=== PATIENT | male | born 1945 | race Caucasian/White ===

== ENCOUNTER 2018-01-21 10:32 | Outpatient (CLI) | payer MEDICARE, SELFPAY ==
[2018-01-21 13:20] LABS: Abs Immature Grans 0.06 k/cumm (0.0-0.09); Absolute Basophil Count 0.07 k/cumm (0.0-0.2); Absolute Eosinophil Count 0.25 k/cumm (0.0-0.7); Absolute Lymphocyte Count 1.43 k/cumm (1.2-3.4); Absolute Monocyte Count 0.86 k/cumm (0.11-0.7); Absolute Neutrophil Count 5.86 k/cumm (1.2-6.7); Basophils % 0.8; Eosinophils % 2.9; HCT 43.9 % (40.0-50.0); HGB 14.6 g/dL (13.5-17.5); Immature Grans % 0.7; Lymphocytes % 16.8; Mean Corp. HGB Concentration 33.3 g/dL (32.0-36.0); Mean Corpuscular Hemoglobin 31.1 pg (27.0-33.0); Mean Corpuscular Volume 93.6 fL (80-95); Mean Platelet Volume 10.6 fL (8.0-11.0); Monocytes % 10.1; Neutrophils % 68.7; Platelet Count 240 x1000/uL (130-400); RBC 4.69 m/cumm (4.50-6.00); RBC Distribution Width 13.8 % (11.8-14.1); White Blood Cell Count 8.53 k/cumm (4.4-10.8)
[2018-01-21 13:42] LABS: ALT 40 U/L (12-78); AST 19 U/L (15-37); Albumin 3.5 g/dL (3.4-5.0); Alkaline Phosphatase 57 U/L (46-116); Anion Gap 10.4 mmol/L (3-11); BUN 21 mg/dL (7-18); Bilirubin, Total 0.4 mg/dL (0.2-1.0); CO2 25.6 mmol/L (21.0-32.0); CREATININE 1.06 mg/dL (0.70-1.30); Calcium 8.8 mg/dL (8.5-10.1); Chloride 103 mmol/L (98-107); Glucose 211 mg/dL (70-100); Potassium 4.2 mmol/L (3.5-5.1); Sodium 139 mmol/L (136-145); Total Protein 6.6 g/dL (6.4-8.2)
[2018-01-21 13:46] LABS: Hemoglobin A1C 6.7 % (4.5-6.2)
== END 2018-01-21 10:52 ==
PROVIDERS: PCP Family Medicine; Visit Provider Family Medicine
DX: R63.4 Abnormal weight loss (principal); I10 Essential (primary) hypertension; E11.9 Type 2 diabetes mellitus without complications; D64.9 Anemia, unspecified; E78.5 Hyperlipidemia, unspecified; R10.2 Pelvic and perineal pain
CPT/HCPCS: 36415; 80053; 83036; 85025

== ENCOUNTER 2018-01-25 01:02 | Outpatient (CLI) | payer MEDICARE, OTHER, SELFPAY ==
--- NOTE | 2018-01-25 08:55 | DI.US_ITS ---
SYMPTOM/DIAGNOSIS: ABD PAIN, R10.9, LLQ, WT LOSS, DECREASED APPETITE ABDOMEN ULTRASOUND: Routine examination was performed. There are no priors for comparison. The aorta and IVC are unremarkable. The liver is normal in size. No hepatic mass is seen sonographically. Portal venous flow is normal. No stones are seen. No gallbladder wall thickening or pericholecystic fluid is seen. There do appear to be a few echogenic immobile foci along the wall of the gallbladder which may represent small polyps. No sludge is present. The common duct is within normal limits at .4 cm. The spleen and kidneys are unremarkable. There is a heterogeneous echogenicity in the region of the head of the pancreas. IMPRESSION: 1. Question of heterogeneous echogenicity in the head of the pancreas. CT scan with contrast of the pancreas is recommended for further evaluation. 2. No biliary ductal dilatation or gallstones.
== END 2018-01-25 01:22 ==
PROVIDERS: PCP Family Medicine; Visit Provider Family Medicine
DX: R10.32 Left lower quadrant pain (principal); R63.0 Anorexia; R63.4 Abnormal weight loss; K86.9 Disease of pancreas, unspecified
CPT/HCPCS: 76700

== ENCOUNTER 2018-01-27 00:19 | Outpatient (CLI) | payer MEDICARE, OTHER, SELFPAY ==
[2018-01-27] MEDS: Omnipaque 350 MG/ML 50 ML BTL PO (07:23)
[2018-01-27] MEDS: Omnipaque 350 MG/ML 100 ML BTL IJ (08:32)
--- NOTE | 2018-01-27 08:32 | DI.CT_ITS ---
SYMPTOM/DIAGNOSIS: F/U ABNL US, PANCREATIC LESION ABDOMEN AND PELVIC CT: The study was carried out according to the usual protocol with an intravenous injection of 100 cc's of Omnipaque 350 and oral ingestion of dilute Omnipaque. There are small areas of scarring and/or atelectasis involving the lung bases. There is no definite infiltrate or pleural effusion. The heart is not enlarged. There is no pericardial effusion. The liver appears intact. The gallbladder is normal. The pancreas is poorly seen due to incomplete opacification of the proximal small bowel. There is a question regarding bowel wall thickening involving the distal duodenum and proximal jejunum. These loops are not opacified. Elsewhere the mid and distal small bowel appears intact. There is nothing to suggest an acute appendix. Note is made of a considerable quantity of scattered gas and fecal material throughout the colon consistent with constipation. The kidneys and adrenals are unremarkable. There is no evidence of adenopathy or a discrete intra-abdominal mass. The bladder is considerably dilated. The reproductive organs as visualized appear intact with note made of enlargement of the prostate. A small nodular density on the bladder floor just above the level of the prostate could represent a small transitional cell tumor of the bladder or could conceivably arise from the prostate. Further assessment with cystoscopy is recommended. There are atherosclerotic changes involving the aorta without evidence of an aneurysm. The celiac and superior mesenteric arteries as visualized appear intact. There are mild degenerative changes involving the spine above the L 5-S 1 level where there is a narrowed vacuum disc and a probable small disc protrusion. SUMMARY: No definite pancreatic mass is seen. There is bowel wall thickening versus non distension involving the proximal small bowel as described above. A small nodular density is noted on the bladder floor and there is considerable enlargement of the prostate. This finding could represent a small transitional cell carcinoma of the bladder wall and less likely a prostatic lesion. Correlation with cystoscopy is recommended. As noted above, there is no definite pancreatic mass however there is a question regarding bowel wall thickening involving the proximal small bowel. There are findings in this patient consistent with constipation. If there is any more specific clinical question regarding the status of the pancreas, then an MRI could also be considered.
== END 2018-01-27 00:39 ==
PROVIDERS: PCP Family Medicine; Visit Provider Family Medicine
DX: K86.89 Other specified diseases of pancreas (principal); K63.89 Other specified diseases of intestine; N32.9 Bladder disorder, unspecified; N40.0 Benign prostatic hyperplasia without lower urinary tract symptoms; K59.00 Constipation, unspecified
CPT/HCPCS: 74177; J3490; Q9967

== ENCOUNTER 2018-02-02 09:06 | Outpatient (CLI) | payer MEDICARE, OTHER, SELFPAY ==
[2018-02-02 10:28] LABS: Bilirubin Negative (Negative); Blood Negative (Negative); Clarity Clear; Glucose 500 mg/dL (Negative); Ketones Negative (Negative); Leukocyte Esterase Negative (Negative); Nitrite Negative (Negative); Urobilinogen 0.2 EU/dL (Up TO 0.2)
== END 2018-02-02 09:26 ==
PROVIDERS: PCP Family Medicine; Visit Provider Family Medicine
DX: N32.9 Bladder disorder, unspecified (principal)
CPT/HCPCS: 81003

== ENCOUNTER → 2018-02-03 10:29 | Outpatient (BNVA) | payer MEDICARE, OTHER, SELFPAY | PROVIDERS: PCP Family Medicine; Visit Provider Nurse Practitioner Gerontology | DX: R69 Illness, unspecified (principal) ==

== ENCOUNTER 2018-02-03 11:42 | Outpatient (CLI) | payer MEDICARE, OTHER, SELFPAY ==
[2018-02-04 09:22] LABS: PSA, Screening 4.3 ng/ml (0-6.5)
== END 2018-02-03 12:02 ==
PROVIDERS: PCP Family Medicine; Visit Provider Nurse Practitioner Gerontology
DX: N40.1 Benign prostatic hyperplasia with lower urinary tract symptoms (principal); Z12.5 Encounter for screening for malignant neoplasm of prostate; I10 Essential (primary) hypertension; E11.9 Type 2 diabetes mellitus without complications; Z79.1 Long term (current) use of non-steroidal anti-inflammatories (NSAID)
CPT/HCPCS: 36415; 84153; 99204; 99215

== ENCOUNTER 2018-02-18 00:09 | Outpatient (CLI) | payer MEDICARE, OTHER, SELFPAY ==
--- NOTE | 2018-02-18 07:00 | DI.US_ITS ---
SYMPTOM/DIAGNOSIS: LT PROSTATE NODULE, WT LOSS, BONE PAIN, XRAY ABNORMALITIES, N40.2,M89.8X9,R63.4,R93.89 ULTRASOUND GUIDED PROSTATE BIOPSY: Ultrasound guidance was provided for prostate biopsy performed by Dr. Avila. Please see Dr. Avila's procedure note.
--- NOTE | 2018-02-18 09:35 | PROST_PTH ---
PATIENT: Chandana Mcwilliams LOC: [facility] U#:[id number] AGE/SX: 72/M ROOM: RE02/18/[address]: Mio Avila MD : 1945 BED: DIS: 02/18/2018 SPEC #: [id number] RECD: 02/18/18 12:40 STATUS: GLADYS RE #: [id number] KYUNG: 02/18/18 09:[address]: Mio Avila DEPT: Surgical Specimen RECD BY: Stella Buenrostro ENTERED: 02/18/18 12:42 SP TYPE: PROST OTHR DR: Paxton Segura MD Tissues: 1 - PROSTATE NEEDLE BIOPSY 2 - PROSTATE NEEDLE BIOPSY 3 - PROSTATE NEEDLE BIOPSY 4 - PROSTATE NEEDLE BIOPSY 5 - PROSTATE NEEDLE BIOPSY 6 - PROSTATE NEEDLE BIOPSY 7 - PROSTATE NEEDLE BIOPSY 8 - PROSTATE NEEDLE BIOPSY 9 - PROSTATE NEEDLE BIOPSY 10 - PROSTATE NEEDLE BIOPSY 11 - PROSTATE NEEDLE BIOPSY 12 - PROSTATE NEEDLE BIOPSY Procedures: GROSS AND MICRO LEVEL 4 Comments: [id number]
--- NOTE | 2018-02-18 09:53 | W.PROCNOTE ---
Date of service: 02/18/18 Time of Service: 09:53 Procedure Note Procedure: Ultrasound-guided biopsy of the prostate Surgeon/Proceduralist/Physician: Mio Avila Procedure Diagnosis: Elevated PSA Procedure Indications: This is a 72-year-old gentleman who has a history of weight loss. He was found to have a slightly elevated PSA of 4.7 ng/mL. On digital exam, there was some firmness on the left side of the prostate. He comes in for prostate biopsy Procedure Description: The patient was brought to the radiology suite on 02/18/2018. He had been given a preoperative antibiotic and mechanical bowel prep. He was placed in the left lateral position. Transrectal imaging of the prostate was then performed. The prostate volume was calculated at 40 cc. There did appear to be a significant median lobe charting up into the bladder, but no other visible abnormalities were identified. There was some loss of architecture between the peripheral and transition zone, but no specific hypoechoic areas. A periprosthetic nerve block was performed using 1% Xylocaine. A total of 12 laterally directed prostate biopsies was taken. Each was labeled and sent to pathology for permanent section. The patient was cautioned regarding the possibilities of urosepsis, blood in the urine, blood from the rectum and blood in the semen. He will follow-up with us in about a week to review his pathology results.
== END 2018-02-18 00:29 ==
PROVIDERS: PCP Family Medicine; Visit Provider Urology
DX: N40.2 Nodular prostate without lower urinary tract symptoms (principal); N41.1 Chronic prostatitis; N42.89 Other specified disorders of prostate; R63.4 Abnormal weight loss
CPT/HCPCS: 88305; 76942

== ENCOUNTER → 2018-04-04 10:50 | Outpatient (BNVA) | payer MEDICARE, OTHER, SELFPAY | PROVIDERS: PCP Family Medicine; Referring Provider Family Medicine; Visit Provider Physical Therapy Assistant | DX: Z12.11 Encounter for screening for malignant neoplasm of colon (principal); E11.9 Type 2 diabetes mellitus without complications; Z79.4 Long term (current) use of insulin; I10 Essential (primary) hypertension ==

== ENCOUNTER 2018-04-22 07:04 | Day surgery (SDC) | payer MEDICARE, OTHER, SELFPAY ==
[2018-04-22 07:19] VITALS: BP 120/78; PULSE 80; RESP 16; TEMP 35.6; O2SAT 99
[2018-04-22] MEDS: Lactated Ringers 1,000 ML 80 ML IV (07:44)
--- NOTE | 2018-04-22 09:12 | BOWEL_PTH ---
PATIENT: Chandana Mcwilliams LOC: [facility] U#:[id number] AGE/SX: 72/M ROOM: RE04/22/[address]: Benny Dewey III : 1945 BED: DIS: 04/22/2018 SPEC #: [id number] RECD: 04/22/18 12:56 STATUS: GLADYS REKrish #: [id number] KYUNG: 04/22/18 09:[address]: Benny Dewey III DEPT: Surgical Specimen RECD BY: Stella Buenrostro ENTERED: 04/22/18 12:58 SP TYPE: Bowel OTHR DR: Paxton Segura MD Tissues: 1 - BIOPSY BOWEL 2 - BIOPSY BOWEL Procedures: GROSS AND MICRO LEVEL 4 Comments: [id number]
--- NOTE | 2018-04-22 09:29 | COLE_ITS ---
Date of service: 04/22/18 Time of Service: 09:26 Colonoscopy Report Date of procedure: 04/22/18 Pre-op diagnosis general: screening colonoscopy Post-op diagnosis procedure note: other Procedure: cecal and sigmoid polyp Anesthesia proc note operative: MAC Pathology: other (cecal and sigmoid polyp) Complications: None Disposition: PACU Prep: LuzmaMANJULACOLBY Procedure Description: After informed consent was obtained the patient was taken to the procedure room and placed in a left decubitous position. Monitors were applied and a time out was done. The patients name, date of , procedure, allergies to medications and metal in their body was reviewed. The patient was then sedated. Once sedated and comfortable a rectal exam was done. External exam was normal. Internal exam revealed a normal sphincter tone and no palpable masses. The prostate WNL. The scope was then introduced and retrofelexed. no internal hemorrhoids were identified. The scope was then advanced to the cecum with difficulty, pt was repositioned on his back. The TI and appendiceal orifice were identified. The prep was not great. The scope was then slowly retracted over 6 minutes back into the rectum. Polyps were removed at cecal and sigmoid. The scope was remove d and the patient was woken up and taken back to Same day surgery in stable condition. The patient tolerated the procedure well and there were no immediate complications. Follow up: The patient should follow up in, 3-5 years? based on path, otherwise 10 years unless they develop changes in bowel habits or other new gastrointestinal complaints.
--- NOTE | 2018-04-22 09:29 | W.PM.DSUDISC ---
Discharge Plan Disposition Patient Disposition: HOME Condition: Stable Discharge Details Reason For Visit: screening colonoscopy Attending Provider: Benny Dewey III Primary Care Provider: Paxton Segura Home Meds and New Rx's Prescriptions: Continued atorvastatin [Lipitor] 10 mg tablet 10 mg PO QPM Qty: 90 RF: 4 Jardiance 25 mg tablet 25 mg PO DAILY Qty: 90 RF: 3 Lantus Solostar U-100 Insulin 100 unit/mL (3 mL) insulin pen 12 unit Sub-Q HS Qty: 15 RF: 2 Janumet 50-1,000 mg tablet 1 tab PO BID Qty: 180 RF: 3 valacyclovir [Valtrex] 500 mg tablet 500 mg PO BID PRN (Reason: herpes) Qty: 30 RF: 0 OneTouch Ultra Test strip 1 strip Miscellaneous BID Qty: 300 RF: 4 lancets [BD Ultra Fine Lancets] 33 gauge misc .ROUTE .MEDSUPPLY Qty: 300 RF: 3 pen needle, diabetic [BD Ultra-Fine Ankita Pen Needle] 32 gauge x 5/32 needle 1 ea Miscellaneous DAILY Qty: 400 RF: 4 bisacodyl [Dulcolax (bisacodyl)] 5 mg tablet,delayed release (DR/EC) 5 mg PO ONCE Qty: 4 RF: 0 polyethylene glycol 3350 17 gram/dose powder 255 g PO ONCE Qty: 255 RF: 0 latanoprost [Xalatan] 2.5 ML drops 1 drp Ophthalmic DAILY RF: 0 Betimol 15 ML drops 1 drp Ophthalmic DAILY RF: 0 epinephrine [EpiPen 2-Yovani] 0.3 MG/0.3 ML auto-injector 0.3 mg IM PRN Qty: 1 RF: 2 losartan 50 mg tablet 50 mg PO DAILY Qty: 90 RF: 3 Humalog KwikPen Insulin 100 unit/mL insulin pen 1 - 5 unit SC TID Qty: 15 RF: 3 fluoxetine 20 mg tablet 10 mg PO DAILY RF: 0 Discharge Instructions Stand Alone Forms: Colonoscopy Post Instructions, Marco Antonio Lezama (DSU) Activity:: Activity as Tolerated Diet:: As Tolerated Discharge Orders Discharge Orders: Discharge Order (Routine); Ordered 04/22/18 Ordered By: Benny Dewey III DS: Diagnosis Discharge Diagnosis (1) Encounter for screening colonoscopy: Status: Acute (2) Polyp of cecum: Status: Acute (3) Sigmoid polyp: Status: Acute
[2018-04-22 10:04] VITALS: BP 123/74; PULSE 65; RESP 18; TEMP 36; O2SAT 95
== END 2018-04-22 10:32 | disposition home or self-care (01) ==
PROVIDERS: PCP Family Medicine; Visit Provider Surgery
PROC: 0DJD8ZZ Inspection of Lower Intestinal Tract, Via Natural or Artificial Opening Endoscopic (ICD-10-PCS; CPT 45378; principal; 2018-04-22 08:15)
DX: Z12.11 Encounter for screening for malignant neoplasm of colon (principal); D12.0 Benign neoplasm of cecum; K63.5 Polyp of colon; E11.9 Type 2 diabetes mellitus without complications; Z79.4 Long term (current) use of insulin; I10 Essential (primary) hypertension
CPT/HCPCS: 45380; 88305; J3010

== ENCOUNTER → 2018-08-30 12:45 | Outpatient (BNVA) | payer MEDICARE, OTHER, SELFPAY | PROVIDERS: PCP Family Medicine; Visit Provider Urology | DX: R35.0 Frequency of micturition (principal); R97.20 Elevated prostate specific antigen [PSA]; E11.9 Type 2 diabetes mellitus without complications | CPT/HCPCS: 81003; 99213 ==

== ENCOUNTER 2018-08-30 13:37 | Outpatient (CLI) | payer MEDICARE, OTHER, SELFPAY | END 2018-08-30 13:57 | PROVIDERS: PCP Family Medicine; Visit Provider Urology | DX: R97.20 Elevated prostate specific antigen [PSA] (principal); R35.0 Frequency of micturition; E11.9 Type 2 diabetes mellitus without complications | CPT/HCPCS: 81003; 99213; 84153 ==

== ENCOUNTER 2019-03-24 14:30 | Outpatient (CLI) | payer MEDICARE, OTHER, SELFPAY ==
[2019-03-27 10:40] LABS: PSA, Screening 2.4 ng/mL (0.0-6.5)
== END 2019-03-24 14:50 ==
PROVIDERS: PCP Family Medicine; Visit Provider Urology
DX: R97.20 Elevated prostate specific antigen [PSA] (principal)
CPT/HCPCS: 36415; 84153

== ENCOUNTER → 2019-03-28 15:26 | Outpatient (BNVA) | payer MEDICARE, OTHER, SELFPAY | PROVIDERS: PCP Family Medicine; Referring Provider Family Medicine; Visit Provider Urology | DX: N40.0 Benign prostatic hyperplasia without lower urinary tract symptoms (principal); R97.20 Elevated prostate specific antigen [PSA] | CPT/HCPCS: 99213 ==

== ENCOUNTER 2019-09-22 01:08 | Outpatient (CLI) | payer MEDICARE, OTHER, SELFPAY ==
[2019-09-22 08:49] LABS: Hemoglobin A1C 6.8 % (3.8-5.6)
[2019-09-22 08:54] LABS: CREATININE 1.05 mg/dL (0.70-1.30); Calculated LDL 74 mg/dL (<100); Cholesterol 151 mg/dL (<200); HDL Cholesterol 58 mg/dL (40-60); Potassium 4.5 mmol/L (3.5-5.1); Triglyceride 99 mg/dL (<150)
[2019-09-25 13:25] LABS: PSA, Diagnostic 3.3 ng/mL (0.0-6.5)
== END 2019-09-22 01:28 ==
PROVIDERS: Urology; PCP Family Medicine; Visit Provider Family Medicine
DX: R97.20 Elevated prostate specific antigen [PSA] (principal); E11.65 Type 2 diabetes mellitus with hyperglycemia; E78.5 Hyperlipidemia, unspecified; I10 Essential (primary) hypertension
CPT/HCPCS: 36415; 80061; 82565; 83036; 84132; 84153

== ENCOUNTER → 2019-10-16 10:02 | Outpatient (BNVA) | payer MEDICARE, OTHER, SELFPAY | PROVIDERS: PCP Family Medicine; Referring Provider Family Medicine; Visit Provider Urology | DX: R97.20 Elevated prostate specific antigen [PSA] (principal); I10 Essential (primary) hypertension; E11.65 Type 2 diabetes mellitus with hyperglycemia; Z79.4 Long term (current) use of insulin; E78.5 Hyperlipidemia, unspecified; R39.15 Urgency of urination; N39.41 Urge incontinence | CPT/HCPCS: 99213 ==

== ENCOUNTER 2020-01-01 01:35 | Outpatient (CLI) | payer MEDICARE, OTHER, SELFPAY ==
[2020-01-03 02:57] LABS: Patient Race White; SARS-CoV-2 RNA Undetected (Undetected); SARS-CoV-2 Specimen Source Nasopharynx
== END 2020-01-01 01:55 ==
PROVIDERS: PCP Family Medicine; Visit Provider Family Medicine
DX: Z11.59 Encounter for screening for other viral diseases (principal)
CPT/HCPCS: U0003

== ENCOUNTER → 2020-04-09 11:26 | Outpatient (BNVA) | payer MEDICARE, OTHER, SELFPAY | PROVIDERS: PCP Family Medicine; Visit Provider Nurse Practitioner Gerontology | DX: R97.20 Elevated prostate specific antigen [PSA] (principal); Z12.5 Encounter for screening for malignant neoplasm of prostate | CPT/HCPCS: 99213 ==

== ENCOUNTER 2020-04-09 13:24 | Outpatient (REF) | payer MEDICARE, OTHER, SELFPAY ==
[2020-04-09 22:44] LABS: PSA, Diagnostic 3.2 ng/mL (0.0-6.5)
== END 2020-04-09 13:44 ==
LOC: LBN 13:24
PROVIDERS: PCP Family Medicine; Visit Provider Urology
DX: R97.20 Elevated prostate specific antigen [PSA] (principal)
CPT/HCPCS: 84153

== ENCOUNTER 2020-08-29 02:52 | Outpatient (CLI) | payer MEDICARE, OTHER, SELFPAY ==
[2020-08-29 11:44] LABS: HCT 44.9 % (40.0-50.0); HGB 14.9 g/dL (13.5-17.5); MCH 30.2 pg (27.0-33.0); MCHC 33.2 % (32.0-36.0); MCV 91.1 fL (80-95); Platelet Count 254 10^3/uL (130-400); RBC 4.93 10^6/uL (4.36-5.78); RDW 13.2 % (11.8-14.1); WBC 10.86 10^3/uL (4.4-10.8)
[2020-08-29 12:28] LABS: ALT 15 U/L (16-63); AST 12 U/L (15-37); Albumin 3.4 g/dL (3.4-5.0); Alkaline Phosphatase 80 U/L (46-116); Anion Gap 7.3 mmol/L (3-11); BUN 28 mg/dL (7-18); Bilirubin, Total 0.5 mg/dL (0.2-1.0); CO2 27.7 mmol/L (21.0-32.0); Calcium 9.2 mg/dL (8.5-10.1); Chloride 106 mmol/L (98-107); Glucose 196 mg/dL (74-106); Potassium 4.6 mmol/L (3.5-5.1); Sodium 141 mmol/L (136-145); Total Protein 6.7 g/dL (6.4-8.2)
== END 2020-08-29 02:53 | disposition home or self-care (01) ==
LOC: LBO 02:52
PROVIDERS: PCP Family Medicine; Visit Provider Family Medicine
DX: D64.9 Anemia, unspecified (principal); R10.9 Unspecified abdominal pain; M54.89 Other dorsalgia
CPT/HCPCS: 36415; 80053; 85027

== ENCOUNTER 2020-10-01 02:02 | Outpatient (CLI) | payer MEDICARE, OTHER, SELFPAY ==
--- NOTE | 2020-10-01 06:45 | DI.RAD_ITS ---
Exam(s) XR CHEST 2V PA LATERAL EXAM: XR CHEST 2V PA LATERAL CLINICAL HISTORY: left upper back pain,M54,9,DORSALGIA TECHNIQUE: 2D digital imaging was performed. US US ABDOMEN from 10/01/2020 US US ABDOMEN from 10/01/2020 FINDINGS: There is a moderate-sized left pleural effusion. There is minimal blunting at the right costophrenic angle. There are mild underlying fibrotic changes. BONE: No compression fracture. Old left rib fracture. IMPRESSION: Moderate-sized left pleural effusion. Tiny right pleural effusion. Chronic fibrotic changes. DATA REPOSITORY: RADIATION DOSE DELIVERED:
--- NOTE | 2020-10-01 06:46 | DI.US_ITS ---
Exam(s) US ABDOMEN EXAM: US ABDOMEN CLINICAL HISTORY: new onset constipation,BACK AND ABD PAIN,MILD WT LOSS,2018 ? PANCREAS LESIO TECHNIQUE: Ultrasound abdomen performed using standard protocol. COMPARISON: No exams were available for comparison FINDINGS: LIVER: Normal size and echogenicity. No focal liver lesions are seen.. GALLBLADDER: No evidence of cholelithiasis. No evidence of wall thickening. No pericholecystic fluid identified. OLIVAS'S SIGN: Negative. BILIARY SYSTEM: No intrahepatic or extrahepatic biliary ductal dilation. KIDNEYS: Kidneys are symmetric in size. No evidence of renal calculi. No evidence of hydronephrosis. No renal mass or cyst identified. PANCREAS: Normal where visualized. SPLEEN: Not enlarged. ABDOMINAL AORTA AND IVC: Visualized portions normal caliber. ASCITES: None seen. There is a tiny right pleural effusion. There is a moderate size left pleural effusion containing de bris. IMPRESSION: Bilateral pleural effusions, left greater than right, otherwise normal sonographic appearance of the upper abdomen. DATA REPOSITORY:
== END 2020-10-01 02:22 ==
PROVIDERS: PCP Family Medicine; Visit Provider Family Medicine
DX: M54.6 Pain in thoracic spine (principal); J90 Pleural effusion, not elsewhere classified
CPT/HCPCS: 71046; 76700

== ENCOUNTER 2020-10-02 14:25 | Day surgery (SDC) | payer MEDICARE, OTHER, SELFPAY ==
--- NOTE | 2020-10-02 | DI.RAD_ITS ---
Exam(s) XR PORTABLE CHEST AP EXAM: XR PORTABLE CHEST AP CLINICAL HISTORY: s/p thorocentisis. TECHNIQUE: 2D digital imaging was performed. COMPARISON: CR XR CHEST 2V PA LATERAL from 10/01/2020 FINDINGS: Heart size is normal. The mediastinum is not widened. Size of the left pleural effusion is significantly decreased, probably related to interval thoracente sis. There is no pneumothorax. Calcified pleural thickening at the ipsilateral left lung apex is un changed. Small amount of left pleural fluid remains. No obvious mass. Heart size normal mediastinum is not widened or shifted. IMPRESSION: No left-sided pneumothorax on what is probably a post thoracentesis image. DATA REPOSITORY: RADIATION DOSE DELIVERED: All CT scans at this facility use at least one of these dose optimization techniques: automated exposure control; mA and/or kV adjustment per patient size (includes targeted e xams where dose is matched to clinical indication); or iterative reconstruction.
[2020-10-02 14:40] VITALS: BP 135/78; PULSE 73; RESP 16; TEMP 36.2; O2SAT 98
--- NOTE | 2020-10-02 15:32 | PAPNONF_PTH ---
PATIENT: hCandana Mcwilliams LOC: [facility] U#:[id number] AGE/SX: 75/M ROOM: RE10/02/[address]: Maylin Garcia : 1945 BED: DIS: 10/02/2020 SPEC #: [id number] RECD: 10/02/20 17:52 STATUS: GLADYS REKrish #: [id number] KYUNG: 10/02/20 15:[address]: Maylin Garcia DEPT: [facility] Cytology RECD BY: Stella Buenrostro ENTERED: 10/02/20 17:53 SP TYPE: WANDA JAVED DR: Paxton Segura MD Tissues: 1 - BODY FLUID CYTO(NOT S/U/N/EM)[facility] Procedures: BODY FLUID CYTO(NOT SPU/UR/NIP/ENDOM)[facility] Comments: [id number] (TOTAL VOLUME = 50 ml's, SENT FRESH)
--- NOTE | 2020-10-02 15:42 | W.PM.DSUDISC ---
Discharge Plan Disposition Patient Disposition: HOME Condition: Good Discharge Details Reason For Visit: (L) PLEURAL EFFUSION Attending Provider: Maylin Garcia Primary Care Provider: Paxton Segura Home Meds and New Rx's Prescriptions: No Action (DME) FreeStyle [place] 14 Day [place] Misc See Dose Instructions .ROUTE .MEDSUPPLY Qty: 1 RF: 0 Jardiance 25 mg tablet 12.5 mg PO DAILY Qty: 45 RF: 3 (DME) FreeStyle [place] 14 Day [place] Misc See Rx Instructions .ROUTE .MEDSUPPLY Qty: 1 RF: 0 (DME) FreeStyle [place] 14 Day Sensor Kit See Dose Instructions .ROUTE .MEDSUPPLY Qty: 2 RF: 11 fluoxetine 20 mg tablet 10 mg PO DAILY Qty: 90 RF: 3 losartan 50 mg tablet 50 mg PO DAILY Qty: 90 RF: 3 valacyclovir [Valtrex] 500 mg tablet 500 mg PO BID PRN (Reason: herpes) Qty: 30 RF: 0 (DME) pen needle, diabetic [BD Ultra-Fine Ankita Pen Needle] 32 gauge x 5/32 needle 1 ea Miscellaneous DAILY Qty: 400 RF: 4 Glucagon Emergency Kit (human) 1 mg recon soln 1 mg SC Q20M PRN (Reason: hypoglycemia) Qty: 1 RF: 5 (DME) OneTouch Ultra Test Strip 1 strip Miscellaneous BID Qty: 300 RF: 4 (DME) blood-glucose meter [FreeStyle Lite Meter] Kit See Dose Instructions .ROUTE .MEDSUPPLY Qty: 1 RF: 0 (DME) lancets [BD Ultra Fine Lancets] 33 gauge misc See Dose Instructions .ROUTE .MEDSUPPLY Qty: 300 RF: 3 Shingrix Adjuvant Component-PF Suspension 0.5 ml IM DAILY Qty: 0.5 RF: 1 Lyumjev KwikPen U-200 Insulin 200 unit/mL (3 mL) insulin pen 1 - 5 unit subcut TID Qty: 18 RF: 3 latanoprost [Xalatan] 2.5 ML drops 1 drp Ophthalmic DAILY RF: 0 epinephrine [EpiPen 2-Yovani] 0.3 MG/0.3 ML auto-injector 0.3 mg IM PRN Qty: 1 RF: 2 Lantus Solostar U-100 Insulin 100 unit/mL (3 mL) insulin pen 12 unit Sub-Q HS Qty: 15 RF: 5 Janumet 50-1,000 mg tablet 1 tab PO BID Qty: 180 RF: 3 atorvastatin [Lipitor] 10 mg tablet 10 mg PO QPM Qty: 90 RF: 4 timolol 0.25 % Drops 1 drp OPHTHALMIC (EYE) DAILY RF: 0 Discharge Instructions Additional Instructions: -no lifting over 20#'s or running for 48hrs -no hot tub/swimming/[place] for 5 days - F/u w/ Dr. Segura next Wednesday/Wednesday Activity:: see above Remove Dressings/Wound Care:: 24 hours Shower/Bathe:: 24 hours Diet:: As Tolerated DS: Diagnosis Discharge Diagnosis (1) Pleural effusion, left: Status: Acute (2) Elevated PSA: Status: Chronic (3) Tubular adenoma of colon: Status: Resolved (4) Weight loss: Status: Acute (5) Varicose veins of lower extremity: Status: Acute (6) Glaucoma, open angle: Status: Acute (7) Hyperlipidemia: Status: Acute (8) Glaucoma: Status: Acute (9) Diabetes mellitus: Status: Acute
--- NOTE | 2020-10-02 15:48 | W.PM.OP ---
Date of service: 10/02/20 Time of Service: 15:48 Operative Note Operative Note DATE OF PROCEDURE: 10/02/20 PRE-OP DIAGNOSIS: left pleural effusion /etiology undetermined. fluid was serous PROCEDURE: thorocentisis SURGEON: Maylin Garcia ELECTRICAL MAINTENANCE TECHNICIAN: Diya Escobar Refer to Anesthesia Record ESTIMATED BLOOD LOSS: 1 PATHOLOGY: other Procedure Description: Pt is here today for thoracentesis for symptoms of shortness of breath. Chest x-ray was reviewed prior to beginning the procedure. Informed consent was obtained explaining risks and benefits of the procedure, including but not limited to bleeding, infection, pneumothorax, recurrence, complications of anesthesia, and other unforetold complications. PROCEDURE: The patient is brought to the procedure room and placed in the seated position. Ultrasound is used to localize the pocket on the left chest. The area is marked and then prepped and draped in the usual sterile fashion using a ChloraPrep scrub solution. 10 cc's of 1% Lidocaine is used to anesthetize the T10 interspace. The small mani is made with a #11 blade. The needle and catheter is then inserted over the top of the rib, aspirating as it is inserted. The needle is then removed. The catheter is then hooked up to the Vacutainer system and 2100 cc's of straw-colored fluid is evacuated. The catheter is removed; pressure is held. Sterile compression dressing is applied. Fluid is sent for culture, cytology, and routine studies. Portable chest x-ray shows no pneumothorax. Pt is given instructions in wound care, activity, medications, and warning signs: SOB, increasing in pain, chest pain, redness or temperature- if these occur, come to ED.
[2020-10-02 16:22] LABS: Source: Pleural
[2020-10-02 16:33] LABS: Clarity Cloudy; Nucleated Cells 2019 uL (0); Source Pleural
[2020-10-02 16:34] LABS: Mononuclear Cells 70 %; Polynuclear Cells 30 %
[2020-10-02 21:16] LABS: Glucose, Fluid 123 mg/dL (See Note)
[2020-10-04 02:01] LABS: CEA, Pleural Fluid 47 ng/mL
[2020-10-04 10:51] LABS: Amylase, BF 26 U/L; Fluid Type LT PLEURAL
== END 2020-10-02 16:15 | disposition home or self-care (01) ==
PROVIDERS: PCP Family Medicine; Visit Provider Surgery
PROC: 0W9B3ZZ Drainage of Left Pleural Cavity, Percutaneous Approach (ICD-10-PCS; CPT 32554; principal; 2020-10-02 12:30)
DX: J90 Pleural effusion, not elsewhere classified (principal)
CPT/HCPCS: 32555; 82378; 89051; 71045; 81373; 82150; 83986; 88104

== ENCOUNTER 2020-10-21 16:01 | Outpatient (CLI) | payer MEDICARE, OTHER, SELFPAY ==
[2020-10-23 11:48] LABS: Leukemia/Lymphoma by FC (Blood See Comments
== END 2020-10-21 16:02 | disposition home or self-care (01) ==
LOC: LBO 16:03
PROVIDERS: PCP Family Medicine; Visit Provider Student in an Organized Health Care Education/Training Program
DX: J90 Pleural effusion, not elsewhere classified (principal)
CPT/HCPCS: 36415; 88185; 71046; 88184; 88189

== ENCOUNTER 2020-10-21 16:13 | Outpatient (CLI) | payer MEDICARE, OTHER, SELFPAY ==
--- NOTE | 2020-10-21 14:45 | DI.RAD_ITS ---
Exam(s) XR CHEST 2V PA LATERAL EXAM: XR CHEST 2V PA LATERAL CLINICAL HISTORY: Concern for pleural effusion reaccumulation J90 PE. TECHNIQUE: 2D digital imaging was performed. CR XR CHEST 2V PA LATERAL from 10/01/2020 CR XR CHEST 2V PA LATERAL from 10/01/2020 CR XR PORTABLE CHEST AP from 10/02/2020 FINDINGS: Heart size is normal. The mediastinum is not widened. Hyperinflation. The size of left pleural effusion has slightly further increased. No pleural effusi on on the right side. Suggestion of a nodular density in the medial aspect of pleural effusion on the left side. IMPRESSION: Slight further increase in size of the left pleural effusion. However, it remains smaller than it wa s on 10/01/2020. DATA REPOSITORY: RADIATION DOSE DELIVERED:
== END 2020-10-21 16:33 ==
PROVIDERS: PCP Family Medicine; Visit Provider Student in an Organized Health Care Education/Training Program
DX: J90 Pleural effusion, not elsewhere classified (principal)
CPT/HCPCS: 71046

== ENCOUNTER 2020-11-05 08:57 | Day surgery (SDC) | payer MEDICARE, OTHER, SELFPAY ==
[2020-11-05 09:05] VITALS: BP 126/76; PULSE 64; RESP 17; TEMP 36.1; O2SAT 97
--- NOTE | 2020-11-05 11:15 | PAPNONF_PTH ---
PATIENT: Chandana Mcwilliams LOC: [facility] U#:[id number] AGE/SX: 75/M ROOM: RE11/05/[address]: Sulma Root MD : 1945 BED: DIS: 11/05/2020 SPEC #: [id number] RECD: 11/05/20 12:57 STATUS: GLADYS REQ #: [id number] KYUNG: 11/05/20 11:[address]: Sulma Root DEPT: [facility] Cytology RECD BY: Stella Buenrostro ENTERED: 11/05/20 12:58 SP TYPE: PAPWILLF TEGAN DR: Paxton Segura MD Tissues: 1 - BODY FLUID CYTO(NOT S/U/N/EM)[facility] 2 - FLOW CYTOMETRY NODE/TISSUE Procedures: BODY FLUID CYTO(NOT SPU/UR/NIP/ENDOM)[facility] FLOW CYTOMETRY LYMPHOMA PNL Comments: [id number] (TOTAL VOLUME = 425 mm, SENT FRESH) (FLOW CYTOMETRY - [id number])
[2020-11-05 11:40] VITALS: BP 129/73; PULSE 65; RESP 16; TEMP 36; O2SAT 99
--- NOTE | 2020-11-05 12:02 | DI.RAD_ITS ---
Exam(s) XR PORTABLE CHEST AP EXAM: XR PORTABLE CHEST AP CLINICAL HISTORY: s/p thoracentesis TECHNIQUE: COMPARISON: CR XR CHEST 2V PA LATERAL from 10/21/2020 FINDINGS: Portable AP chest was obtained post thoracentesis. There is decreased size of the previously noted l eft pleural effusion. There is no evidence of pneumothorax. Note is again made of pleural calcifica tion at the left lung apex. The right lung is clear and well expanded. No right pleural effusion seen on this frontal film. IMPRESSION: RADIATION DOSE DELIVERED: Total DLP
--- NOTE | 2020-11-05 12:11 | W.PM.DSUDISC ---
Discharge Plan Disposition Patient Disposition: HOME Condition: Good Discharge Details Reason For Visit: Thoracentesis Attending Provider: Sulma Root Primary Care Provider: Paxton Segura Home Meds and New Rx's Prescriptions: No Action (DME) FreeStyle [place] 14 Day [place] Misc See Dose Instructions .ROUTE .MEDSUPPLY Qty: 1 RF: 0 Jardiance 25 mg tablet 12.5 mg PO DAILY Qty: 45 RF: 3 (DME) FreeStyle [place] 14 Day [place] Misc See Rx Instructions .ROUTE .MEDSUPPLY Qty: 1 RF: 0 (DME) FreeStyle [place] 14 Day Sensor Kit See Dose Instructions .ROUTE .MEDSUPPLY Qty: 2 RF: 11 fluoxetine 20 mg tablet 10 mg PO DAILY Qty: 90 RF: 3 losartan 50 mg tablet 50 mg PO DAILY Qty: 90 RF: 3 valacyclovir [Valtrex] 500 mg tablet 500 mg PO BID PRN (Reason: herpes) Qty: 30 RF: 0 (DME) pen needle, diabetic [BD Ultra-Fine Ankita Pen Needle] 32 gauge x 5/32 needle 1 ea Miscellaneous DAILY Qty: 400 RF: 4 Glucagon Emergency Kit (human) 1 mg recon soln 1 mg SC Q20M PRN (Reason: hypoglycemia) Qty: 1 RF: 5 (DME) OneTouch Ultra Test Strip 1 strip Miscellaneous BID Qty: 300 RF: 4 (DME) blood-glucose meter [FreeStyle Lite Meter] Kit See Dose Instructions .ROUTE .MEDSUPPLY Qty: 1 RF: 0 (DME) lancets [BD Ultra Fine Lancets] 33 gauge misc See Dose Instructions .ROUTE .MEDSUPPLY Qty: 300 RF: 3 Shingrix Adjuvant Component-PF Suspension 0.5 ml IM DAILY Qty: 0.5 RF: 1 Lyumjev KwikPen U-200 Insulin 200 unit/mL (3 mL) insulin pen 1 - 5 unit subcut TID Qty: 18 RF: 3 latanoprost [Xalatan] 2.5 ML drops 1 drp Ophthalmic DAILY RF: 0 epinephrine [EpiPen 2-Yovani] 0.3 MG/0.3 ML auto-injector 0.3 mg IM PRN Qty: 1 RF: 2 Lantus Solostar U-100 Insulin 100 unit/mL (3 mL) insulin pen 12 unit Sub-Q HS Qty: 15 RF: 5 Janumet 50-1,000 mg tablet 1 tab PO BID Qty: 180 RF: 3 atorvastatin [Lipitor] 10 mg tablet 10 mg PO QPM Qty: 90 RF: 4 timolol 0.25 % Drops 1 drp OPHTHALMIC (EYE) DAILY RF: 0 Discharge Instructions Instructions: Thoracentesis (DC) Additional Instructions: Return to ED if you develop worsening shortness of breath, chest pain, fever or cough that does not improve Activity:: Activity as Tolerated Remove Dressings/Wound Care:: 24 hours Shower/Bathe:: 24 hours Diet:: As Tolerated Discharge Orders Discharge Orders: Discharge Order (Routine); Ordered 11/05/20 Ordered By: Sulma Root Discharge Data Discharge Date/Time-TO BE ENTERED AT DEPARTURE: 11/05/20 12:17 DS: Diagnosis Discharge Diagnosis (1) Pleural effusion, left: Status: Acute
--- NOTE | 2020-11-05 12:17 | W.PM.OP ---
Date of service: 11/05/20 Time of Service: 11:00 Operative Note Operative Note Procedure Description: Thoracentesis Procedure Note Consent: Informed consent was obtained. Risks of the procedure were discussed including infection, bleeding, pain, pneumothorax. Timeout was performed. The site was cleaned in the usual sterile fashion with ChloraPrep and sterile drapes. The pleural effusion was confirmed and located with the aid of ultrasound. 4 cc of lidocaine was injected for local anesthetic. The thoracentesis catheter was inserted into the pleural space with ease. Findings 1.2 L of pleural fluid was obtained. It was normal yellow in appearance. A sample was sent for analysis including cytology. Complications: None Condition: Stable A chest x-ray was performed postprocedure and showed no evidence of pneumothorax by my read. Sulma Root MD
[2020-11-05 12:22] VITALS: BP 121/77; PULSE 66; RESP 16; TEMP 36.3; O2SAT 100
[2020-11-05 13:21] LABS: Clarity Cloudy; Source Pleural
[2020-11-05 13:22] LABS: Nucleated Cells 1978 uL (0)
[2020-11-05 13:41] LABS: Mononuclear Cells 94 %; Polynuclear Cells 6 %
[2020-11-05 15:16] LABS: Source: Pleural
[2020-11-05 22:02] LABS: Glucose, Fluid 196 mg/dL (See Note)
[2020-11-07 13:04] LABS: Fluid Type PLEURAL; Lactate Dehydrogenase (LD), BF 195 U/L; Protein,Total, BF 4.9 g/dL
== END 2020-11-05 12:17 | disposition home or self-care (01) ==
LOC: SUR 08:58
PROVIDERS: PCP Family Medicine; Visit Provider Student in an Organized Health Care Education/Training Program
PROC: (CPT 32554; principal; 2020-11-05 10:15)
DX: J90 Pleural effusion, not elsewhere classified (principal)
CPT/HCPCS: 32555; 82947; 88185; 71045; 81373; 83615; 83986; 84155; 84157; 87070; 87205; 88104; 88184; 88189; 89051

== ENCOUNTER 2020-11-20 01:41 | Outpatient (CLI) | payer MEDICARE, OTHER, SELFPAY ==
--- NOTE | 2020-11-20 08:47 | DI.CT_ITS ---
Exam(s) CT CHEST W EXAM: CT CHEST W CLINICAL HISTORY: recurrent pleural effusion, concern for malignancy TECHNIQUE: Imaging Protocol: Axial computed tomography images with coronal and sagittal reformatted images were created and reviewed CONTRAST MATERIAL: Intravenous: Omnipaque 350 Contrast volume:70 cc FINDINGS: Tracheobronchial tree: No bronchiectasis or mucous plugging. Mediastinum and Krissy: No dominant adenopathy or fluid collection. Pulmonary parenchyma: Fibrotic changes. High-density material at the left lung apex could represent calcification versus suture material. No pulmonary nodules. Pleura: Moderate-sized left pleural effusion. Abnormal pleural thickening with masslike enhancement left medial costophrenic angle. Irregular partially cystic-appearing pleural based mass at the media l left lower lobe, abutting the pericardium. Approximate measurements 5.3 x 5.5 x 5.7 cm. No pneumoth orax. No right pleural effusion or right pleural thickening. Heart: The heart is not dilated. Moderate 2 severe coronary artery calcifications are seen. Aorta: Thoracic aorta non-dilated. Upper abdomen: Unremarkable. Lymph nodes: Within normal limits. Bones: No lytic or blastic lesions. Soft tissues: Unremarkable. IMPRESSION: Pleural based mass medial left lower lobe. Moderate pleural effusion with masslike pleural thickenin g medial left lung base. RADIATION DOSE DELIVERED: 486.33mGy.cm Total DLP DATA REPOSITORY: All CT scans at this facility are submitted to the National Radiology Data Registry (NRDR) Dose Index Registry (DIR) with the [employer] (ACR). RADIATION OPTIMIZATION: All CT scans at this facility use at least one of these dose optimization te chniques: automated exposure control; mA and/or kV adjustment per patient size (includes targeted exa ms where dose is matched to clinical indication); or iterative reconstruction.
[2020-11-20 15:10] LABS: CREATININE 1.1 mg/dL (0.70-1.30)
[2020-11-20] MEDS: Omnipaque 350 MG/ML 100 ML BTL 70 ML IV (15:12)
== END 2020-11-20 02:01 ==
PROVIDERS: PCP Family Medicine; Visit Provider Student in an Organized Health Care Education/Training Program
DX: J90 Pleural effusion, not elsewhere classified (principal); R91.8 Other nonspecific abnormal finding of lung field
CPT/HCPCS: 82947; 88185; 71260; 82565; 83615; 84155; 88184; 88189; J3490

== ENCOUNTER 2020-11-22 21:10 | Outpatient (REF) | payer MEDICARE, OTHER, SELFPAY ==
[2020-11-26 17:12] LABS: Blastomyces Ag Result Not Detected; Blastomyces Ag Value Not Detected
== END 2020-11-22 21:11 | disposition home or self-care (01) ==
LOC: LBN 21:10
PROVIDERS: PCP Family Medicine; Visit Provider Student in an Organized Health Care Education/Training Program
DX: R91.8 Other nonspecific abnormal finding of lung field (principal)
CPT/HCPCS: 87449; 87385

== ENCOUNTER 2020-11-26 04:40 | Outpatient (CLI) | payer MEDICARE, OTHER, SELFPAY ==
[2020-11-28 13:10] LABS: TB Interpretation Negative (Negative)
== END 2020-11-26 04:41 | disposition home or self-care (01) ==
LOC: LBO 04:40
PROVIDERS: PCP Family Medicine; Visit Provider Student in an Organized Health Care Education/Training Program
DX: R91.8 Other nonspecific abnormal finding of lung field (principal)
CPT/HCPCS: 36415; 86480

== ENCOUNTER 2021-01-06 03:05 | Outpatient (CLI) | payer MEDICARE, OTHER, SELFPAY ==
[2021-01-06 09:15] LABS: Abs Immature Grans 0.12 10^3/uL (0.0-0.06); Absolute Basophil Count 0.09 10^3/uL (0.0-0.2); Absolute Monocyte Count 0.79 10^3/uL (0.1-0.8); Absolute Neutrophil Count 9.38 10^3/uL (1.2-6.7); Basophils % 0.7; Eosinophils % 3.3; HCT 44.2 % (40.0-50.0); HGB 14.2 g/dL (13.5-17.5); Lymphocytes % 12.2; MCH 29.1 pg (27.0-33.0); MCHC 32.1 % (32.0-36.0); MCV 90.6 fL (80-95); MPV 9.5 fL (8.0-11.0); Monocytes % 6.4; Neutrophils % 76.4; Nucleated RBC 0 %; Platelet Count 238 10^3/uL (130-400); RBC 4.88 10^6/uL (4.36-5.78); RDW 14.3 % (11.8-14.1); RDW-SD 46.8 fL; WBC 12.28 10^3/uL (4.4-10.8)
[2021-01-06 09:18] LABS: Absolute Eosinophil Count 0.41 10^3/uL (0.0-0.7)
[2021-01-06 09:43] LABS: ALT 18 U/L (16-63); AST 13 U/L (15-37); Albumin 3.4 g/dL (3.4-5.0); Alkaline Phosphatase 77 U/L (46-116); Anion Gap 5.6 mmol/L (3-11); BUN 22 mg/dL (7-18); Bilirubin, Total 0.5 mg/dL (0.2-1.0); CO2 32.4 mmol/L (21.0-32.0); Calcium 9.5 mg/dL (8.5-10.1); Chloride 101 mmol/L (98-107); FREE T4 1.09 ng/dL (0.76-1.46); Glucose 200 mg/dL (74-106); Magnesium 2.3 mg/dL (1.8-2.4); Potassium 4.3 mmol/L (3.5-5.1); Sodium 139 mmol/L (136-145); TSH 3.21 uIU/mL (0.36-3.74); Total Protein 7.4 g/dL (6.4-8.2)
== END 2021-01-06 03:06 | disposition home or self-care (01) ==
LOC: LBO 03:05
PROVIDERS: PCP Family Medicine; Visit Provider Internal Medicine Medical Oncology
DX: C34.32 Malignant neoplasm of lower lobe, left bronchus or lung (principal); Z79.899 Other long term (current) drug therapy; J91.0 Malignant pleural effusion
CPT/HCPCS: 36415; 80053; 83735; 84439; 84443; 85025

== ENCOUNTER 2021-01-16 14:31 | Outpatient (CLI) | payer MEDICARE, OTHER, SELFPAY ==
[2021-01-16 09:17] LABS: Abs Immature Grans 0.13 10^3/uL (0.0-0.06); Absolute Eosinophil Count 0.49 10^3/uL (0.0-0.7); Absolute Neutrophil Count 10.72 10^3/uL (1.2-6.7); Basophils % 0.7; Eosinophils % 3.6; HGB 14.1 g/dL (13.5-17.5); Immature Grans % 0.9; Lymphocytes % 10.9; MCH 29.3 pg (27.0-33.0); MCV 91.3 fL (80-95); MPV 9.6 fL (8.0-11.0); Monocytes % 5.8; Neutrophils % 78.1; Nucleated RBC 0 %; Platelet Count 266 10^3/uL (130-400); RBC 4.82 10^6/uL (4.36-5.78); RDW 14.2 % (11.8-14.1); RDW-SD 47.8 fL; WBC 13.72 10^3/uL (4.4-10.8)
[2021-01-16 09:40] LABS: ALT 12 U/L (16-63); AST 10 U/L (15-37); Albumin 3.5 g/dL (3.4-5.0); Alkaline Phosphatase 81 U/L (46-116); BUN 24 mg/dL (7-18); Bilirubin, Total 0.4 mg/dL (0.2-1.0); Calcium 9.7 mg/dL (8.5-10.1); Chloride 103 mmol/L (98-107); FREE T4 0.99 ng/dL (0.76-1.46); Glucose 147 mg/dL (74-106); Potassium 4.8 mmol/L (3.5-5.1); Sodium 141 mmol/L (136-145); TSH 3.18 uIU/mL (0.36-3.74); Total Protein 7.3 g/dL (6.4-8.2)
== END 2021-01-16 14:32 | disposition home or self-care (01) ==
PROVIDERS: PCP Family Medicine; Visit Provider Internal Medicine Medical Oncology
DX: Z79.899 Other long term (current) drug therapy (principal); C34.32 Malignant neoplasm of lower lobe, left bronchus or lung; J91.0 Malignant pleural effusion
CPT/HCPCS: 36415; 80053; 83735; 84439; 84443; 85025

== ENCOUNTER 2021-02-10 03:42 | Outpatient (CLI) | payer MEDICARE, OTHER, SELFPAY ==
[2021-02-10 07:20] LABS: Abs Immature Grans 0.08 10^3/uL (0.0-0.06); Absolute Basophil Count 0.12 10^3/uL (0.0-0.2); Absolute Eosinophil Count 1.08 10^3/uL (0.0-0.7); Absolute Lymphocyte Count 1.98 10^3/uL (1.2-3.4); Absolute Neutrophil Count 4.87 10^3/uL (1.2-6.7); Basophils % 1.3; Eosinophils % 12.1; HCT 42.6 % (40.0-50.0); HGB 13.9 g/dL (13.5-17.5); Immature Grans % 0.9; Lymphocytes % 22.2; MCH 29.1 pg (27.0-33.0); MCHC 32.6 % (32.0-36.0); MCV 89.3 fL (80-95); MPV 9.9 fL (8.0-11.0); Neutrophils % 54.5; Nucleated RBC 0 %; Platelet Count 154 10^3/uL (130-400); RBC 4.77 10^6/uL (4.36-5.78); RDW 15.1 % (11.8-14.1); RDW-SD 49.1 fL; WBC 8.93 10^3/uL (4.4-10.8)
[2021-02-10 07:43] LABS: ALT 17 U/L (16-63); AST 13 U/L (15-37); Albumin 3.6 g/dL (3.4-5.0); Alkaline Phosphatase 61 U/L (46-116); Anion Gap 5.9 mmol/L (3-11); BUN 25 mg/dL (7-18); Bilirubin, Total 0.5 mg/dL (0.2-1.0); CO2 30.1 mmol/L (21.0-32.0); Chloride 104 mmol/L (98-107); FREE T4 0.96 ng/dL (0.76-1.46); Glucose 213 mg/dL (74-106); Magnesium 1.9 mg/dL (1.8-2.4); Potassium 4.3 mmol/L (3.5-5.1); Sodium 140 mmol/L (136-145); TSH 4.15 uIU/mL (0.36-3.74); Total Protein 7.2 g/dL (6.4-8.2)
[2021-02-10 10:49] LABS: Bilirubin Negative (Negative); Blood Trace-intact (Negative); Clarity Clear (Clear); Glucose 500 mg/dL (Negative); Ketones Negative (Negative); Leukocyte Esterase Negative (Negative); Nitrite Negative (Negative); Specific Gravity 1.025 (1.005-1.025); Urobilinogen 0.2 EU/dL (Up TO 0.2); pH 5.5 (5-8)
[2021-02-10 10:59] LABS: Bacteria Negative HPF (Negative); C & S Indicated? No; Casts Negative LPF (Negative); Crystals Negative HPF (Negative); Epithelial Cells Rare HPF (Negative); Mucus Negative (Negative); RBC 0-2 HPF (0-2); WBC Negative HPF (0-5)
== END 2021-02-10 03:43 | disposition home or self-care (01) ==
LOC: LBO 03:42
PROVIDERS: PCP Family Medicine; Visit Provider Internal Medicine Medical Oncology
DX: Z79.899 Other long term (current) drug therapy (principal); C34.32 Malignant neoplasm of lower lobe, left bronchus or lung; J91.0 Malignant pleural effusion
CPT/HCPCS: 36415; 80053; 81003; 81015; 83735; 84439; 84443; 85025

== ENCOUNTER 2021-02-26 00:44 | Outpatient (CLI) | payer MEDICARE, OTHER, SELFPAY ==
[2021-02-26] MEDS: Omnipaque 350 MG/ML 100 ML BTL IJ (14:45)
--- NOTE | 2021-02-26 14:50 | DI.CT_ITS ---
Exam(s) CT CHEST W EXAM: CT CHEST W CLINICAL HISTORY: LUNG CANCER C34.32,ASSESS TREATMENT RESPONSE TECHNIQUE: Imaging Protocol: Axial computed tomography images with coronal and sagittal reformatted images were created and reviewed CONTRAST MATERIAL: Intravenous: Omnipaque 350 Contrast volume:70 mL. COMPARISON: CT CT CHEST W from 11/20/[address] CHEST W from 11/20/2020 FINDINGS: Tracheobronchial tree: Patent where visualized. Pulmonary parenchyma: There has been an interval decrease in size of the left pleural effusion. Ther e is also been a decrease in size of the peripherally enhancing cystic lesion in the medial aspect of the left lung base. It measures 4 x 3.6 cm compared to 5.3 x 5.5 x 5.7 cm. Pulmonary fibrosis is p resent. Calcified granuloma. Mediastinum and Krissy: No dominant adenopathy or fluid collection. There is a small hiatal hernia. Th e esophagus is otherwise unremarkable. Thyroid gland: Unremarkable. Pleura: Please see above. Heart: The heart is not dilated. Coronary artery calcification. No pericardial effusion. Aorta: Thoracic aorta non-dilated. Atherosclerosis. Upper abdomen: Unremarkable. Lymph nodes: Within normal limits. Bones: No lytic or blastic lesions are present. Soft tissues: Unremarkable. IMPRESSION: Interval decrease in size of the mass in the left lung base and the left pleural effusion. RADIATION DOSE DELIVERED: 383.8mGy.cm Total DLP DATA REPOSITORY: All CT scans at this facility are submitted to the National Radiology Data Registry (NRDR) Dose Index Registry (DIR) with the [employer] (ACR). RADIATION OPTIMIZATION: All CT scans at this facility use at least one of these dose optimization te chniques: automated exposure control; mA and/or kV adjustment per patient size (includes targeted exa ms where dose is matched to clinical indication); or iterative reconstruction.
[2021-02-26] MEDS: Normal Saline Flush 10 ML SYR IVP (14:52)
== END 2021-02-26 01:04 ==
PROVIDERS: PCP Family Medicine; Visit Provider Internal Medicine Medical Oncology
DX: C34.32 Malignant neoplasm of lower lobe, left bronchus or lung (principal); J90 Pleural effusion, not elsewhere classified
CPT/HCPCS: 71260; J3490

== ENCOUNTER 2021-03-03 03:53 | Outpatient (CLI) | payer MEDICARE, OTHER, SELFPAY ==
[2021-03-03 08:18] LABS: Abs Immature Grans 0.09 10^3/uL (0.0-0.06); Absolute Basophil Count 0.07 10^3/uL (0.0-0.2); Absolute Eosinophil Count 0.29 10^3/uL (0.0-0.7); Absolute Lymphocyte Count 1.49 10^3/uL (1.2-3.4); Absolute Neutrophil Count 3.73 10^3/uL (1.2-6.7); Eosinophils % 4.3; HCT 43.7 % (40.0-50.0); HGB 14.1 g/dL (13.5-17.5); Immature Grans % 1.3; Lymphocytes % 22.3; MCH 29.6 pg (27.0-33.0); MCHC 32.3 % (32.0-36.0); MCV 91.8 fL (80-95); MPV 9.2 fL (8.0-11.0); Neutrophils % 56.1; Nucleated RBC 0 %; Platelet Count 222 10^3/uL (130-400); RBC 4.76 10^6/uL (4.36-5.78); RDW 15.2 % (11.8-14.1); RDW-SD 51.2 fL; WBC 6.67 10^3/uL (4.4-10.8)
[2021-03-03 08:42] LABS: ALT 15 U/L (16-63); AST 13 U/L (15-37); Albumin 3.6 g/dL (3.4-5.0); Alkaline Phosphatase 63 U/L (46-116); Anion Gap 4.4 mmol/L (3-11); BUN 26 mg/dL (7-18); Bilirubin, Total 0.3 mg/dL (0.2-1.0); CO2 29.6 mmol/L (21.0-32.0); Calcium 8.6 mg/dL (8.5-10.1); Chloride 104 mmol/L (98-107); FREE T4 0.88 ng/dL (0.76-1.46); Glucose 170 mg/dL (74-106); Potassium 4.2 mmol/L (3.5-5.1); Sodium 138 mmol/L (136-145); TSH 5.32 uIU/mL (0.36-3.74); Total Protein 7.1 g/dL (6.4-8.2)
== END 2021-03-03 03:54 | disposition home or self-care (01) ==
LOC: LBO 03:54
PROVIDERS: PCP Family Medicine; Visit Provider Internal Medicine Medical Oncology
DX: C34.32 Malignant neoplasm of lower lobe, left bronchus or lung (principal); J91.0 Malignant pleural effusion; Z79.899 Other long term (current) drug therapy
CPT/HCPCS: 36415; 80053; 83735; 84439; 84443; 85025; 89051

== ENCOUNTER 2021-03-24 02:43 | Outpatient (CLI) | payer MEDICARE, SELFPAY ==
[2021-03-24 08:20] LABS: Abs Immature Grans 0.05 10^3/uL (0.0-0.06); Absolute Basophil Count 0.08 10^3/uL (0.0-0.2); Absolute Eosinophil Count 0.75 10^3/uL (0.0-0.7); Absolute Lymphocyte Count 1.48 10^3/uL (1.2-3.4); Absolute Neutrophil Count 4.47 10^3/uL (1.2-6.7); Basophils % 1.1; Eosinophils % 10.1; HCT 44.3 % (40.0-50.0); HGB 14.3 g/dL (13.5-17.5); Immature Grans % 0.7; Lymphocytes % 19.9; MCH 29.6 pg (27.0-33.0); MCHC 32.3 % (32.0-36.0); MCV 91.7 fL (80-95); MPV 9.6 fL (8.0-11.0); Monocytes % 8.1; Neutrophils % 60.1; Nucleated RBC 0 %; Platelet Count 222 10^3/uL (130-400); RBC 4.83 10^6/uL (4.36-5.78); RDW 15.3 % (11.8-14.1); RDW-SD 51.7 fL; WBC 7.43 10^3/uL (4.4-10.8)
[2021-03-24 08:43] LABS: ALT 15 U/L (16-63); AST 11 U/L (15-37); Albumin 3.7 g/dL (3.4-5.0); Alkaline Phosphatase 65 U/L (46-116); Anion Gap 8.7 mmol/L (3-11); BUN 26 mg/dL (7-18); Bilirubin, Total 0.5 mg/dL (0.2-1.0); CO2 28.3 mmol/L (21.0-32.0); CREATININE 1.2 mg/dL (0.70-1.30); Chloride 99 mmol/L (98-107); Estimated GFR 59.18 (mL/min/1.73m2); Glucose 297 mg/dL (74-106); Magnesium 2.1 mg/dL (1.8-2.4); Potassium 4.1 mmol/L (3.5-5.1); Sodium 136 mmol/L (136-145); TSH 5.13 uIU/mL (0.36-3.74); Total Protein 7.4 g/dL (6.4-8.2)
== END 2021-03-24 02:44 | disposition home or self-care (01) ==
LOC: LBO 02:43
PROVIDERS: PCP Family Medicine; Visit Provider Internal Medicine Medical Oncology
DX: Z79.899 Other long term (current) drug therapy (principal); C34.32 Malignant neoplasm of lower lobe, left bronchus or lung; J91.0 Malignant pleural effusion
CPT/HCPCS: 36415; 80053; 83735; 84439; 84443; 85025

== ENCOUNTER 2021-04-14 03:31 | Outpatient (CLI) | payer MEDICARE, SELFPAY ==
[2021-04-14 07:56] LABS: Abs Immature Grans 0.07 10^3/uL (0.0-0.06); Absolute Basophil Count 0.07 10^3/uL (0.0-0.2); Absolute Eosinophil Count 0.47 10^3/uL (0.0-0.7); Absolute Lymphocyte Count 1.34 10^3/uL (1.2-3.4); Absolute Monocyte Count 0.73 10^3/uL (0.1-0.8); Absolute Neutrophil Count 5.44 10^3/uL (1.2-6.7); Basophils % 0.9; Eosinophils % 5.8; HGB 14.6 g/dL (13.5-17.5); Immature Grans % 0.9; Lymphocytes % 16.5; MCHC 32.4 % (32.0-36.0); MCV 92.6 fL (80-95); Neutrophils % 66.9; Nucleated RBC 0 %; Platelet Count 179 10^3/uL (130-400); RBC 4.86 10^6/uL (4.36-5.78); RDW 14.8 % (11.8-14.1); RDW-SD 51.1 fL; WBC 8.12 10^3/uL (4.4-10.8)
[2021-04-14 08:17] LABS: ALT 15 U/L (16-63); AST 10 U/L (15-37); Albumin 3.4 g/dL (3.4-5.0); Alkaline Phosphatase 58 U/L (46-116); Anion Gap 6.9 mmol/L (3-11); BUN 27 mg/dL (7-18); Bilirubin, Total 0.4 mg/dL (0.2-1.0); CO2 29.1 mmol/L (21.0-32.0); CREATININE 1.2 mg/dL (0.70-1.30); Chloride 103 mmol/L (98-107); Estimated GFR 59.18 (mL/min/1.73m2); FREE T4 0.92 ng/dL (0.76-1.46); Glucose 246 mg/dL (74-106); Magnesium 1.9 mg/dL (1.8-2.4); Sodium 139 mmol/L (136-145); TSH 3.98 uIU/mL (0.36-3.74)
[2021-04-14 17:47] LABS: PSA, Diagnostic 2.2 ng/mL (0.0-6.5)
== END 2021-04-14 03:32 | disposition home or self-care (01) ==
LOC: LBO 03:31
PROVIDERS: Nurse Practitioner Gerontology; PCP Family Medicine; Visit Provider Internal Medicine Medical Oncology
DX: N40.0 Benign prostatic hyperplasia without lower urinary tract symptoms (principal); R97.20 Elevated prostate specific antigen [PSA]; Z79.899 Other long term (current) drug therapy; C34.32 Malignant neoplasm of lower lobe, left bronchus or lung; J91.0 Malignant pleural effusion
CPT/HCPCS: 36415; 80053; 83735; 84153; 84439; 84443; 85025

== ENCOUNTER 2021-04-30 14:40 | Outpatient (CLI) | payer MEDICARE, SELFPAY ==
--- NOTE | 2021-04-30 | DI.CT_ITS ---
Exam(s) CT CHEST W EXAM: CT CHEST W CLINICAL HISTORY: PRIMARY MALIGNANT NEOPLASM, LT LUNG, C34.32, RESTAGING. TECHNIQUE: Multi planar reconstructions were performed. CONTRAST MATERIAL: Omnipaque 350; 75 cc COMPARISON: CT CT CHEST W from 02/26/2021 FINDINGS: CHEST: LUNGS: The size of mass in the medial left lung base exhibits minimal if any significant change.. Th e small amount of associated ipsilateral pleural fluid has decreased. There is, however, now a small area of infiltrate in the lateral aspect of the left upper lobe measuring approximately 1 x 0.9 cm. In addition, there is increasing patchy infiltrate in the opposite-right lower lobe, not associated with a pleural effusion. There are no new findings in the trachea and mainstem bronchi. MEDIASTINUM: There is no new hilar nor new mediastinal adenopathy. No subcarinal adenopathy. There is no adenopathy in the aortopulmonic window. Visualized thyroid unremarkable. CARDIAC: Heart size is normal. There is no pericardial effusion.Caliber of the thoracic aorta is wit hin normal limits. VISUALIZED UPPER ABDOMEN:There are no significant adrenal masses. OSSEOUS: No significant osseous lesions.. IMPRESSION: 1. Relatively stable appearance of the left lung base mass when compared to 02/26/2021. 2. However, there is now small area of infiltrate in the left upper lobe as well as increasing infilt rates in right lower lobe. No new pleural effusions nor new intrathoracic adenopathy. 3. RADIATION DOSE DELIVERED: 468.55mGy.cm Total DLP DATA REPOSITORY: All CT scans at this facility are submitted to the National Radiology Data Registry (NRDR) Dose Index Registry (DIR) with the [employer] (ACR). RADIATION OPTIMIZATION: All CT scans at this facility use at least one of these dose optimization te chniques: automated exposure control; mA and/or kV adjustment per patient size (includes targeted exa ms where dose is matched to clinical indication); or iterative reconstruction.
[2021-04-30] MEDS: Normal Saline Flush 10 ML SYR IVP (14:50)
[2021-04-30] MEDS: Omnipaque 350 MG/ML 100 ML BTL IJ (14:50)
== END 2021-04-30 15:00 ==
PROVIDERS: PCP Family Medicine; Visit Provider Nurse Practitioner Adult Health
DX: C34.32 Malignant neoplasm of lower lobe, left bronchus or lung (principal); R91.8 Other nonspecific abnormal finding of lung field
CPT/HCPCS: 71260; J3490

== ENCOUNTER 2021-05-05 01:42 | Outpatient (CLI) | payer MEDICARE, SELFPAY ==
[2021-05-05 07:52] LABS: Abs Immature Grans 0.09 10^3/uL (0.0-0.06); Absolute Basophil Count 0.06 10^3/uL (0.0-0.2); Absolute Eosinophil Count 0.49 10^3/uL (0.0-0.7); Absolute Lymphocyte Count 1.48 10^3/uL (1.2-3.4); Absolute Monocyte Count 0.75 10^3/uL (0.1-0.8); Absolute Neutrophil Count 5.29 10^3/uL (1.2-6.7); Basophils % 0.7; HCT 45.5 % (40.0-50.0); HGB 14.9 g/dL (13.5-17.5); Immature Grans % 1.1; Lymphocytes % 18.1; MCH 30.5 pg (27.0-33.0); MCHC 32.7 % (32.0-36.0); MCV 93.2 fL (80-95); MPV 9.7 fL (8.0-11.0); Monocytes % 9.2; Neutrophils % 64.9; Nucleated RBC 0 %; Platelet Count 182 10^3/uL (130-400); RBC 4.88 10^6/uL (4.36-5.78); RDW 14.5 % (11.8-14.1); RDW-SD 50.4 fL; WBC 8.16 10^3/uL (4.4-10.8)
[2021-05-05 07:57] LABS: Bilirubin Negative (Negative); Blood Negative (Negative); Clarity Clear (Clear); Glucose >=1000 mg/dL (Negative); Ketones Trace mg/dL (Negative); Leukocyte Esterase Negative (Negative); Nitrite Negative (Negative); Specific Gravity 1.025 (1.005-1.025); Urobilinogen 0.2 EU/dL (Up TO 0.2); pH 5.5 (5-8)
[2021-05-05 08:14] LABS: ALT 16 U/L (16-63); AST 11 U/L (15-37); Albumin 3.6 g/dL (3.4-5.0); Alkaline Phosphatase 60 U/L (46-116); Anion Gap 7.1 mmol/L (3-11); BUN 28 mg/dL (7-18); Bilirubin, Total 0.4 mg/dL (0.2-1.0); CO2 25.9 mmol/L (21.0-32.0); Calcium 8.9 mg/dL (8.5-10.1); Chloride 102 mmol/L (98-107); FREE T4 0.91 ng/dL (0.76-1.46); Glucose 238 mg/dL (74-106); Sodium 135 mmol/L (136-145); TSH 5.28 uIU/mL (0.36-3.74); Total Protein 7.2 g/dL (6.4-8.2)
== END 2021-05-05 01:43 | disposition home or self-care (01) ==
LOC: LBO 01:42
PROVIDERS: PCP Family Medicine; Visit Provider Internal Medicine Medical Oncology
DX: C34.32 Malignant neoplasm of lower lobe, left bronchus or lung (principal); J91.0 Malignant pleural effusion; Z79.899 Other long term (current) drug therapy; R82.998 Other abnormal findings in urine
CPT/HCPCS: 36415; 80053; 81003; 83735; 84439; 84443; 85025

== ENCOUNTER 2021-05-26 04:26 | Outpatient (CLI) | payer MEDICARE, SELFPAY ==
[2021-05-26 07:51] LABS: Abs Immature Grans 0.23 10^3/uL (0.0-0.06); Absolute Basophil Count 0.08 10^3/uL (0.0-0.2); Absolute Eosinophil Count 0.33 10^3/uL (0.0-0.7); Absolute Monocyte Count 0.81 10^3/uL (0.1-0.8); Absolute Neutrophil Count 6.74 10^3/uL (1.2-6.7); Basophils % 0.8; Eosinophils % 3.2; HCT 46.7 % (40.0-50.0); HGB 15.2 g/dL (13.5-17.5); Immature Grans % 2.2; Lymphocytes % 20.4; MCH 30.6 pg (27.0-33.0); MCHC 32.5 % (32.0-36.0); MPV 10.1 fL (8.0-11.0); Monocytes % 7.9; Neutrophils % 65.5; Nucleated RBC 0 %; Platelet Count 180 10^3/uL (130-400); RBC 4.97 10^6/uL (4.36-5.78); RDW 14.3 % (11.8-14.1); RDW-SD 49.5 fL; WBC 10.29 10^3/uL (4.4-10.8)
[2021-05-26 07:58] LABS: Bilirubin Negative (Negative); Blood Negative (Negative); Clarity Clear (Clear); Glucose >=1000 mg/dL (Negative); Ketones Negative (Negative); Leukocyte Esterase Negative (Negative); Nitrite Negative (Negative); Urobilinogen 0.2 EU/dL (Up TO 0.2); pH 5.5 (5-8)
[2021-05-26 08:18] LABS: ALT 23 U/L (16-63); AST 13 U/L (15-37); Albumin 3.7 g/dL (3.4-5.0); Alkaline Phosphatase 43 U/L (46-116); Anion Gap 8.2 mmol/L (3-11); BUN 32 mg/dL (7-18); Bilirubin, Total 0.5 mg/dL (0.2-1.0); CO2 27.8 mmol/L (21.0-32.0); Calcium 9.2 mg/dL (8.5-10.1); Chloride 103 mmol/L (98-107); FREE T4 0.79 ng/dL (0.76-1.46); Glucose 231 mg/dL (74-106); Magnesium 2.2 mg/dL (1.8-2.4); Potassium 4.1 mmol/L (3.5-5.1); Sodium 139 mmol/L (136-145); TSH 5.03 uIU/mL (0.36-3.74); Total Protein 7.2 g/dL (6.4-8.2)
== END 2021-05-26 04:27 | disposition home or self-care (01) ==
LOC: LBO 04:26
PROVIDERS: PCP Family Medicine; Visit Provider Internal Medicine Medical Oncology
DX: C34.32 Malignant neoplasm of lower lobe, left bronchus or lung (principal); J91.0 Malignant pleural effusion; Z79.899 Other long term (current) drug therapy
CPT/HCPCS: 36415; 80053; 81003; 83735; 84439; 84443; 85025

== ENCOUNTER 2021-06-02 00:23 | Outpatient (CLI) | payer MEDICARE, SELFPAY ==
--- NOTE | 2021-06-02 | DI.CT_ITS ---
Exam(s) CT CHEST W EXAM: CT CHEST W CLINICAL HISTORY: LT LUNG CA,C34.32,MALIGNANT PLEURAL EFFUSION,J91.0,PNEUMONITIS,J18.9 TECHNIQUE: Imaging Protocol: Axial computed tomography images with coronal and sagittal reformatted images were created and reviewed CONTRAST MATERIAL: Intravenous: Omnipaque 350 Contrast volume:70 ml. COMPARISON: CT CT CHEST W from 04/30/2021 FINDINGS: Tracheobronchial tree: No bronchiectasis or mucous plugging. Mediastinum and Krissy: No dominant adenopathy or fluid collection. Pulmonary parenchyma: Mild decrease in size smoothly marginated mass at the medial left lung base, 18 x 29 by 30 millimeters. No consolidation. Previously questioned small infiltrate left upper lobe n ot seen on the current exam. Right lower lobe infiltrate resolved. Underlying mild emphysematous an d fibrotic changes. Pleura: No effusion or pneumothorax. Mild pleural calcification at lung apices.. Heart: The heart is not dilated. Moderate to severe coronary artery calcifications are seen. Aorta: Ascending aorta 4.0 cm descending aorta normal diameter with mild mural calcification. No dis section. Upper abdomen: Large quantity of stool. Lymph nodes: Within normal limits. Bones: Mild degenerative changes in the spine. No compression fracture.. Pectus excavatum deformity . No suspicious bony lesions. Severe degenerative change of the of the left shoulder. Soft tissues: Unremarkable. IMPRESSION: Mild interval decrease of left medial basilar mass. No new abnormalities. RADIATION DOSE DELIVERED: 386.8mGy.cm Total DLP DATA REPOSITORY: All CT scans at this facility are submitted to the National Radiology Data Registry (NRDR) Dose Index Registry (DIR) with the [employer] (ACR). RADIATION OPTIMIZATION: All CT scans at this facility use at least one of these dose optimization te chniques: automated exposure control; mA and/or kV adjustment per patient size (includes targeted exa ms where dose is matched to clinical indication); or iterative reconstruction.
[2021-06-02] MEDS: Omnipaque 350 MG/ML 100 ML BTL IJ (08:27)
== END 2021-06-02 00:43 ==
PROVIDERS: PCP Family Medicine; Visit Provider Internal Medicine Medical Oncology
DX: C34.32 Malignant neoplasm of lower lobe, left bronchus or lung (principal); J91.0 Malignant pleural effusion; J18.9 Pneumonia, unspecified organism; J84.10 Pulmonary fibrosis, unspecified
CPT/HCPCS: 71260; J3490

== ENCOUNTER 2021-06-09 03:37 | Outpatient (CLI) | payer MEDICARE, SELFPAY ==
[2021-06-09 13:18] LABS: Abs Immature Grans 0.19 10^3/uL (0.0-0.06); Absolute Basophil Count 0.08 10^3/uL (0.0-0.2); Absolute Lymphocyte Count 1.14 10^3/uL (1.2-3.4); Absolute Monocyte Count 0.51 10^3/uL (0.1-0.8); Absolute Neutrophil Count 6.77 10^3/uL (1.2-6.7); Basophils % 0.9; Eosinophils % 1.1; HGB 15.1 g/dL (13.5-17.5); Immature Grans % 2.2; MCHC 32.8 % (32.0-36.0); MCV 94.5 fL (80-95); MPV 9.8 fL (8.0-11.0); Monocytes % 5.8; Nucleated RBC 0 %; Platelet Count 201 10^3/uL (130-400); RBC 4.87 10^6/uL (4.36-5.78); RDW-SD 48.7 fL; WBC 8.79 10^3/uL (4.4-10.8)
[2021-06-09 13:47] LABS: ALT 23 U/L (16-63); Albumin 3.7 g/dL (3.4-5.0); Alkaline Phosphatase 46 U/L (46-116); Anion Gap 9.4 mmol/L (3-11); BUN 35 mg/dL (7-18); Bilirubin, Total 0.4 mg/dL (0.2-1.0); CO2 25.6 mmol/L (21.0-32.0); CREATININE 1.3 mg/dL (0.70-1.30); Calcium 8.8 mg/dL (8.5-10.1); Chloride 101 mmol/L (98-107); Estimated GFR 53.96 (mL/min/1.73m2); FREE T4 0.77 ng/dL (0.76-1.46); Glucose 267 mg/dL (74-106); Magnesium 2.1 mg/dL (1.8-2.4); Potassium 4.8 mmol/L (3.5-5.1); Sodium 136 mmol/L (136-145); TSH 3.57 uIU/mL (0.36-3.74)
[2021-06-09 14:00] LABS: AST 6 U/L (15-37)
== END 2021-06-09 03:38 | disposition home or self-care (01) ==
LOC: LBO 03:37
PROVIDERS: PCP Family Medicine; Visit Provider Internal Medicine Medical Oncology
DX: C34.32 Malignant neoplasm of lower lobe, left bronchus or lung (principal); Z79.899 Other long term (current) drug therapy; J91.0 Malignant pleural effusion
CPT/HCPCS: 36415; 80053; 81003; 83735; 84439; 84443; 85025

== ENCOUNTER 2021-06-26 02:20 | Outpatient (CLI) | payer MEDICARE, SELFPAY ==
[2021-06-26 09:11] LABS: Abs Immature Grans 0.29 10^3/uL (0.0-0.06); Absolute Basophil Count 0.08 10^3/uL (0.0-0.2); Absolute Eosinophil Count 0.17 10^3/uL (0.0-0.7); Absolute Lymphocyte Count 1.21 10^3/uL (1.2-3.4); Absolute Monocyte Count 0.51 10^3/uL (0.1-0.8); Absolute Neutrophil Count 6.62 10^3/uL (1.2-6.7); Basophils % 0.9; Eosinophils % 1.9; HCT 45.5 % (40.0-50.0); HGB 15.1 g/dL (13.5-17.5); Immature Grans % 3.3; Lymphocytes % 13.6; MCH 31.5 pg (27.0-33.0); MCHC 33.2 % (32.0-36.0); MCV 94.8 fL (80-95); MPV 9.9 fL (8.0-11.0); Monocytes % 5.7; Neutrophils % 74.6; Nucleated RBC 0 %; Platelet Count 187 10^3/uL (130-400); RDW 14.1 % (11.8-14.1); RDW-SD 49.2 fL; WBC 8.88 10^3/uL (4.4-10.8)
[2021-06-26 10:27] LABS: ALT 24 U/L (16-63); AST 12 U/L (15-37); Albumin 3.9 g/dL (3.4-5.0); Alkaline Phosphatase 41 U/L (46-116); Anion Gap 9.4 mmol/L (3-11); BUN 29 mg/dL (7-18); Bilirubin, Total 0.5 mg/dL (0.2-1.0); CO2 27.6 mmol/L (21.0-32.0); CREATININE 1.2 mg/dL (0.70-1.30); Calcium 9.1 mg/dL (8.5-10.1); Chloride 102 mmol/L (98-107); Estimated GFR 59.18 (mL/min/1.73m2); FREE T4 0.99 ng/dL (0.76-1.46); Glucose 271 mg/dL (74-106); Potassium 4.1 mmol/L (3.5-5.1); Sodium 139 mmol/L (136-145); TSH 3.74 uIU/mL (0.36-3.74); Total Protein 6.8 g/dL (6.4-8.2)
== END 2021-06-26 02:21 | disposition home or self-care (01) ==
LOC: LBO 02:20
PROVIDERS: PCP Family Medicine; Visit Provider Internal Medicine Medical Oncology
DX: C34.32 Malignant neoplasm of lower lobe, left bronchus or lung (principal); J91.0 Malignant pleural effusion; Z79.899 Other long term (current) drug therapy
CPT/HCPCS: 36415; 80053; 83735; 84439; 84443; 85025

== ENCOUNTER 2021-08-11 03:11 | Outpatient (CLI) | payer MEDICARE, SELFPAY ==
[2021-08-11 09:27] LABS: Abs Immature Grans 0.23 10^3/uL (0.0-0.06); Absolute Basophil Count 0.09 10^3/uL (0.0-0.2); Absolute Eosinophil Count 0.47 10^3/uL (0.0-0.7); Absolute Lymphocyte Count 1.44 10^3/uL (1.2-3.4); Absolute Monocyte Count 0.67 10^3/uL (0.1-0.8); Absolute Neutrophil Count 6.01 10^3/uL (1.2-6.7); Eosinophils % 5.3; HCT 44.6 % (40.0-50.0); HGB 14.8 g/dL (13.5-17.5); Immature Grans % 2.6; Lymphocytes % 16.2; MCH 31.5 pg (27.0-33.0); MCHC 33.2 % (32.0-36.0); MCV 95 fL (80-95); MPV 9.8 fL (8.0-11.0); Monocytes % 7.5; Neutrophils % 67.4; Platelet Count 214 10^3/uL (130-400); RDW 13.5 % (11.8-14.1); RDW-SD 47.9 fL; WBC 8.91 10^3/uL (4.4-10.8)
[2021-08-11 10:35] LABS: ALT 21 U/L (16-63); AST 10 U/L (15-37); Albumin 3.7 g/dL (3.4-5.0); Alkaline Phosphatase 49 U/L (46-116); BUN 31 mg/dL (7-18); Bilirubin, Total 0.7 mg/dL (0.2-1.0); CREATININE 1.2 mg/dL (0.70-1.30); Calcium 9.1 mg/dL (8.5-10.1); Chloride 99 mmol/L (98-107); Estimated GFR 59.18 (mL/min/1.73m2); FREE T4 0.96 ng/dL (0.76-1.46); Glucose 355 mg/dL (74-106); Potassium 4.4 mmol/L (3.5-5.1); Sodium 135 mmol/L (136-145); Total Protein 6.6 g/dL (6.4-8.2)
== END 2021-08-11 03:12 | disposition home or self-care (01) ==
LOC: LBO 03:11
PROVIDERS: PCP Family Medicine; Visit Provider Internal Medicine Medical Oncology
DX: C34.32 Malignant neoplasm of lower lobe, left bronchus or lung (principal); J91.0 Malignant pleural effusion; Z79.899 Other long term (current) drug therapy
CPT/HCPCS: 36415; 80053; 83735; 84439; 84443; 85025

== ENCOUNTER 2021-09-01 04:17 | Outpatient (CLI) | payer MEDICARE, SELFPAY ==
[2021-09-01 08:47] LABS: Abs Immature Grans 0.12 10^3/uL (0.0-0.06); Absolute Basophil Count 0.08 10^3/uL (0.0-0.2); Absolute Eosinophil Count 0.32 10^3/uL (0.0-0.7); Absolute Lymphocyte Count 1.61 10^3/uL (1.2-3.4); Absolute Monocyte Count 0.68 10^3/uL (0.1-0.8); Absolute Neutrophil Count 4.25 10^3/uL (1.2-6.7); Basophils % 1.1; Eosinophils % 4.5; HCT 43.8 % (40.0-50.0); HGB 14.5 g/dL (13.5-17.5); Immature Grans % 1.7; Lymphocytes % 22.8; MCH 31.7 pg (27.0-33.0); MCHC 33.1 % (32.0-36.0); MCV 96 fL (80-95); MPV 9.8 fL (8.0-11.0); Monocytes % 9.6; Neutrophils % 60.3; Platelet Count 184 10^3/uL (130-400); RBC 4.57 10^6/uL (4.36-5.78); RDW 13.4 % (11.8-14.1); RDW-SD 47.4 fL; WBC 7.06 10^3/uL (4.4-10.8)
[2021-09-01 09:12] LABS: ALT 30 U/L (16-63); AST 18 U/L (15-37); Albumin 3.5 g/dL (3.4-5.0); Alkaline Phosphatase 43 U/L (46-116); Anion Gap 6.7 mmol/L (3-11); BUN 24 mg/dL (7-18); Bilirubin, Total 0.6 mg/dL (0.2-1.0); CO2 29.3 mmol/L (21.0-32.0); CREATININE 1.2 mg/dL (0.70-1.30); Chloride 103 mmol/L (98-107); Estimated GFR 59.02 (mL/min/1.73m2); FREE T4 0.89 ng/dL (0.76-1.46); Glucose 245 mg/dL (74-106); Potassium 4.3 mmol/L (3.5-5.1); Sodium 139 mmol/L (136-145); TSH 3.83 uIU/mL (0.36-3.74); Total Protein 6.6 g/dL (6.4-8.2)
== END 2021-09-01 04:18 | disposition home or self-care (01) ==
LOC: LBO 04:17
PROVIDERS: PCP Family Medicine; Visit Provider Internal Medicine Medical Oncology
DX: C34.32 Malignant neoplasm of lower lobe, left bronchus or lung (principal); J91.0 Malignant pleural effusion; Z79.899 Other long term (current) drug therapy
CPT/HCPCS: 36415; 80053; 83735; 84439; 84443; 85025

== ENCOUNTER 2021-09-24 02:36 | Outpatient (CLI) | payer MEDICARE, SELFPAY ==
[2021-09-24 07:24] LABS: Abs Immature Grans 0.16 10^3/uL (0.0-0.06); Absolute Basophil Count 0.07 10^3/uL (0.0-0.2); Absolute Eosinophil Count 0.35 10^3/uL (0.0-0.7); Absolute Lymphocyte Count 2.31 10^3/uL (1.2-3.4); Absolute Monocyte Count 0.78 10^3/uL (0.1-0.8); Absolute Neutrophil Count 4.67 10^3/uL (1.2-6.7); Basophils % 0.8; Eosinophils % 4.2; HCT 44.7 % (40.0-50.0); HGB 14.8 g/dL (13.5-17.5); Immature Grans % 1.9; Lymphocytes % 27.7; MCH 31.9 pg (27.0-33.0); MCHC 33.1 % (32.0-36.0); MCV 96 fL (80-95); MPV 10.1 fL (8.0-11.0); Monocytes % 9.4; Platelet Count 198 10^3/uL (130-400); RBC 4.64 10^6/uL (4.36-5.78); RDW 12.8 % (11.8-14.1); RDW-SD 45.7 fL; WBC 8.34 10^3/uL (4.4-10.8)
[2021-09-24 07:43] LABS: ALT 24 U/L (16-63); AST 18 U/L (15-37); Albumin 3.6 g/dL (3.4-5.0); Alkaline Phosphatase 47 U/L (46-116); Anion Gap 6.9 mmol/L (3-11); BUN 26 mg/dL (7-18); Bilirubin, Total 0.3 mg/dL (0.2-1.0); CO2 28.1 mmol/L (21.0-32.0); CREATININE 1.1 mg/dL (0.70-1.30); Chloride 101 mmol/L (98-107); FREE T4 0.91 ng/dL (0.76-1.46); Glucose 231 mg/dL (74-106); Sodium 136 mmol/L (136-145); TSH 4.78 uIU/mL (0.36-3.74); Total Protein 6.8 g/dL (6.4-8.2)
== END 2021-09-24 02:37 | disposition home or self-care (01) ==
LOC: LBO 02:36
PROVIDERS: PCP Family Medicine; Visit Provider Internal Medicine Medical Oncology
DX: C34.2 Malignant neoplasm of middle lobe, bronchus or lung (principal); J91.0 Malignant pleural effusion; Z79.899 Other long term (current) drug therapy
CPT/HCPCS: 36415; 80053; 83735; 84439; 84443; 85025

== ENCOUNTER 2021-10-20 03:48 | Outpatient (CLI) | payer MEDICARE, SELFPAY ==
[2021-10-20 13:10] LABS: Abs Immature Grans 0.18 10^3/uL (0.0-0.06); Absolute Basophil Count 0.08 10^3/uL (0.0-0.2); Absolute Lymphocyte Count 1.14 10^3/uL (1.2-3.4); Absolute Monocyte Count 0.64 10^3/uL (0.1-0.8); Absolute Neutrophil Count 9.86 10^3/uL (1.2-6.7); Basophils % 0.7; Eosinophils % 0.8; HCT 45.8 % (40.0-50.0); HGB 15.3 g/dL (13.5-17.5); Immature Grans % 1.5; Lymphocytes % 9.5; MCH 31.3 pg (27.0-33.0); MCHC 33.4 % (32.0-36.0); MCV 94 fL (80-95); Monocytes % 5.3; Neutrophils % 82.2; Platelet Count 217 10^3/uL (130-400); RBC 4.89 10^6/uL (4.36-5.78); RDW 12.9 % (11.8-14.1); RDW-SD 44.4 fL; WBC 11.99 10^3/uL (4.4-10.8)
[2021-10-20 13:40] LABS: ALT 29 U/L (16-63); AST 15 U/L (15-37); Albumin 3.8 g/dL (3.4-5.0); Alkaline Phosphatase 43 U/L (46-116); BUN 38 mg/dL (7-18); Bilirubin, Total 0.4 mg/dL (0.2-1.0); CREATININE 1.4 mg/dL (0.70-1.30); Calcium 9.3 mg/dL (8.5-10.1); Chloride 97 mmol/L (98-107); Estimated GFR 49.41 (mL/min/1.73m2); Glucose 363 mg/dL (74-106); Potassium 4.5 mmol/L (3.5-5.1); Sodium 131 mmol/L (136-145); TSH 2.67 uIU/mL (0.36-3.74); Total Protein 7.1 g/dL (6.4-8.2)
== END 2021-10-20 03:49 | disposition home or self-care (01) ==
LOC: LBO 03:48
PROVIDERS: PCP Family Medicine; Visit Provider Internal Medicine Medical Oncology
DX: Z79.899 Other long term (current) drug therapy (principal); J91.0 Malignant pleural effusion; C34.32 Malignant neoplasm of lower lobe, left bronchus or lung
CPT/HCPCS: 36415; 80053; 83735; 84439; 84443; 85025

== ENCOUNTER 2021-11-17 04:07 | Outpatient (CLI) | payer MEDICARE, SELFPAY ==
[2021-11-17 08:49] LABS: Abs Immature Grans 0.16 10^3/uL (0.0-0.06); Absolute Basophil Count 0.09 10^3/uL (0.0-0.2); Absolute Eosinophil Count 0.28 10^3/uL (0.0-0.7); Absolute Lymphocyte Count 1.64 10^3/uL (1.2-3.4); Absolute Neutrophil Count 4.27 10^3/uL (1.2-6.7); Basophils % 1.2; Eosinophils % 3.9; HCT 45.8 % (40.0-50.0); HGB 15.3 g/dL (13.5-17.5); Immature Grans % 2.2; Lymphocytes % 22.7; MCH 31.5 pg (27.0-33.0); MCHC 33.4 % (32.0-36.0); MCV 94 fL (80-95); MPV 10.2 fL (8.0-11.0); Platelet Count 196 10^3/uL (130-400); RBC 4.86 10^6/uL (4.36-5.78); RDW 12.9 % (11.8-14.1); RDW-SD 44.8 fL; WBC 7.24 10^3/uL (4.4-10.8)
[2021-11-17 09:11] LABS: ALT 23 U/L (16-63); AST 13 U/L (15-37); Albumin 3.6 g/dL (3.4-5.0); Alkaline Phosphatase 47 U/L (46-116); Anion Gap 6.6 mmol/L (3-11); BUN 28 mg/dL (7-18); Bilirubin, Total 0.6 mg/dL (0.2-1.0); CO2 30.4 mmol/L (21.0-32.0); CREATININE 1.1 mg/dL (0.70-1.30); Calcium 9.1 mg/dL (8.5-10.1); Chloride 103 mmol/L (98-107); FREE T4 0.87 ng/dL (0.76-1.46); Glucose 188 mg/dL (74-106); Sodium 140 mmol/L (136-145); TSH 4.59 uIU/mL (0.36-3.74); Total Protein 7.1 g/dL (6.4-8.2)
== END 2021-11-17 04:08 | disposition home or self-care (01) ==
LOC: LBO 04:07
PROVIDERS: PCP Family Medicine; Visit Provider Internal Medicine Medical Oncology
DX: C34.32 Malignant neoplasm of lower lobe, left bronchus or lung (principal); J91.0 Malignant pleural effusion; Z79.899 Other long term (current) drug therapy
CPT/HCPCS: 36415; 80053; 83735; 84439; 84443; 85025

== ENCOUNTER 2021-12-08 08:40 | Outpatient (CLI) | payer MEDICARE, SELFPAY ==
[2021-12-08 07:51] LABS: Abs Immature Grans 0.15 10^3/uL (0.0-0.06); Absolute Basophil Count 0.07 10^3/uL (0.0-0.2); Absolute Eosinophil Count 0.31 10^3/uL (0.0-0.7); Absolute Lymphocyte Count 1.69 10^3/uL (1.2-3.4); Absolute Monocyte Count 0.78 10^3/uL (0.1-0.8); Absolute Neutrophil Count 4.38 10^3/uL (1.2-6.7); Basophils % 0.9; Eosinophils % 4.2; HCT 44.9 % (40.0-50.0); HGB 14.8 g/dL (13.5-17.5); Lymphocytes % 22.9; MCH 31.1 pg (27.0-33.0); MCV 94 fL (80-95); MPV 10.5 fL (8.0-11.0); Monocytes % 10.6; Neutrophils % 59.4; Platelet Count 180 10^3/uL (130-400); RBC 4.76 10^6/uL (4.36-5.78); RDW 12.8 % (11.8-14.1); RDW-SD 44.6 fL; WBC 7.38 10^3/uL (4.4-10.8)
[2021-12-08 08:33] LABS: ALT 23 U/L (16-63); AST 12 U/L (15-37); Albumin 3.6 g/dL (3.4-5.0); Alkaline Phosphatase 47 U/L (46-116); Anion Gap 4.8 mmol/L (3-11); BUN 26 mg/dL (7-18); Bilirubin, Total 0.5 mg/dL (0.2-1.0); CO2 30.2 mmol/L (21.0-32.0); CREATININE 1.2 mg/dL (0.70-1.30); Chloride 102 mmol/L (98-107); Estimated GFR 63.07 (mL/min/1.73m2); FREE T4 0.94 ng/dL (0.76-1.46); Glucose 335 mg/dL (74-106); Potassium 5.3 mmol/L (3.5-5.1); Sodium 137 mmol/L (136-145)
--- OUTSIDE RECORDS SUMMARY | 2021-12-08 08:47 | XMS_ITS | Clinical Summary ---
:1945 Author Organization [facility] [place] [address] Care Team Providers Name Role Phone Paxton Segura MD Primary Care Provider [phone] Allergies No known active allergies Medications Medication Sig Dispensed Refills Start Date End Date Status atorvastatin (LIPITOR) 10mg, PO, Once 0 04/27/2006 Active 10 mg tablet daily latanoprost (XALATAN) 1 drop nightly. 0 Active 0.005 % ophthalmic solution Jardiance 25 mg Tablet 12.5mg daily 0 10/16/2020 Active Glucagon 1 mg Recon Inject 0 07/07/2019 Active Soln subcutaneously. Lantus Solostar U-100 20 Units. Patient 0 07/17/2020 Active Insulin pen stating taking 20 units at HS. losartan (Cozaar) 50 TAKE 1 TABLET BY 0 10/14/2020 Active mg Tablet MOUTH DAILY Janumet 50-1,000 mg TAKE 1 TABLET BY 0 09/10/2020 Active Tablet MOUTH TWICE DAILY valACYclovir (Valtrex) Take by mouth as 0 05/22/2020 Active 500 mg Tablet needed. As needed insulin lispro Inject 0 Activ e (HumaLOG) Insulin Pen subcutaneously 3 times daily (before meals). Sliding scale prochlorperazine Take 1 tablet by 30 tablet 3 01/06/2021 Active (Compazine) 10 mg mouth every 6 hours Tablet as needed for Nausea. Additional Information Patient not taking. Reported on 09/24/2021 FLUoxetine (PROzac) 20 mg 60 mg. Patient stated 90 tablet 3 Active Tablet taking three tablets daily to equal 60 mg total daily. Additional Information Patient taking differently: 20 mg, 40 mg. Patient stated taking two tablets daily., Reported on 08/11/2021 dorzolamide-timoloL (Cosopt) INSTILL ONE DROP INTO 0 03/12/2021 Active 22.3-6.8 mg/mL Drops BOTH EYES TWO TIMES A DAY triamcinolone (ARISTOCORT) 0.5 % Apply topically 2 60 g 2 04/14/2021 Active Cream times daily. predniSONE (Deltasone) 10 mg Take 1 tablet by 90 tablet 1 10/2021 Active Tablet mouth daily. Additional Information Patient taking differently: 10 mg Oral EVERY OTHER DAY, Reported on 11/17/2021 diphenhydrAMINE (Benadryl) 25 mg Take 25 mg by mouth every 6 0 Active Capsule hours as needed for Itching. Taking nightly Active Problems Problem Noted Date Pneumonitis 05/05/2021 Drug dermatitis 05/05/2021 Medication management 01/06/2021 Primary malignant neoplasm of left lower lobe of lung 12/19/2020 Cancer Staging: Clinical stage from 12/22: Stage JUDAH (cT3, cN1, cM1a) - Signed by Rizwan Leong MD on 12/22/2020 Overview: Squamous Cell Carcinoma TPS/PD-L1 0% PIK3CA p.E545K c.1633G>A BRAF p.G466A c.1397G>C TP53 p.W91* c.272G>A Malignant pleural effusion 12/19/2020 Pleural effusion 12/06/2020 Mass of lower lobe of left lung 12/03/2020 Overview: 7 cm mass with associated effusion Preoperative testing 12/03/2020 Pulmonary mass 12/03/2020 Recurrent pleural effusion on left 12/03/2020 Depressive disorder 12/02/2020 Elevated PSA 12/02/2020 Encounter for screening colonoscopy 12/02/2020 Flatulence 12/02/2020 Open-angle glaucoma 12/02/2020 Herpes simplex 12/02/2020 History of hemorrhoidectomy 12/02/2020 Hyperlipidemia 12/02/2020 Impacted cerumen of right ear 12/02/2020 Irritable colon 12/02/2020 Kidney stone 12/02/2020 Pleural effusion, left 12/02/2020 Polyp of cecum 12/02/2020 Prostatism 12/02/2020 Sigmoid polyp 12/02/2020 Skin lesion 12/02/2020 Status post inguinal hernia repair 12/02/2020 Upper back pain 12/02/2020 Varicose veins of lower extremity 12/02/2020 Weight loss 12/02/2020 Chronic sinusitis 11/22/2013 Actinic keratosis 08/05/2012 Diabetes mellitus 06/13/2012 Encounters Date Type Specialty Care Team Description 12/08/2021 Infusion Hematology and Medication dawson murray; Oncology Primary maligna nt neoplasm of left lower lobe of lung; Malignant pleur al effusion 11/17/2021 Infusion Hematology and Medication dawson murray; Oncology Primary maligna nt neoplasm of left lower lobe of lung; Malignant pleur al effusion 11/17/2021 Office Visit Hematology and Rizwan Leong, Primary malignant Oncology MD neoplasm of left Maylin Monet A, lower lobe of lung 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 Infusion Hematology and Medication dawson murray; Oncology Primary maligna nt neoplasm of left lower lobe of lung; Malignant pleur al effusion 10/20/2021 Office Visit Hematology and TierneyMaylin A, Primary malignant neoplasm of left lower lobe of lung; Oncology 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 Medication kristofer gement; Drug dermatitis ; Elevated serum creatinine 09/24/2021 TH Visit Hematology and Rizwan Leong, Primary malignant ([facility]) Oncology neoplasm of lef t lower lobe of l aryan 09/24/2021 Infusion Hematology and Medication dawson murray; Oncology Primary maligna nt neoplasm of left lower lobe of lung; Malignant pleur al effusion 09/23/2021 Hospital Encounter Radiology Rizwan Leong MD 09/23/2021 Hospital Encounter Radiology Rizwan Leong, [facility] shaylee malignant neoplasm of lef t lower lobe of l aryan from Last 3 Months Immunizations Name Administration Dates Next Due Influenza Vaccine, Whole 03/17/2006 Family History Medical History Relation Comments Coronary Artery Disease Father Diabetes Paternal Aunt Relation Status Comments Father Paternal Aunt Social History Tobacco Use Types Packs/Day Years Used Date Never Smoker Smokeless Tobacco: Never Used Alcohol Use Standard Drinks/Week Comments Yes 7 (1 standard drink = 0.6 oz pure alcoho l) 1 glass of wine per day Alcohol Habits Answer Date Recorded How often do you have a drink containing Not asked alcohol? How many drinks containing alcohol do you have Not asked on a typical day when you are drinking? How often do you have six or more drinks on one Not asked occasion? Comment: 1 glass of wine per day 12/03/2020 Sex Assigned at Date Recorded Not on file Last Filed Vital Signs Vital Sign Reading Time Taken Comments Blood Pressure 117/76 11/17/2021 9:30 AM EDT Pulse 70 11/17/2021 9:30 AM EDT Temperature 36.5 ??C (97.7 ??F) 11/17/2021 9:30 AM EDT Respiratory Rate 18 11/17/2021 9:30 AM EDT Oxygen Saturation 99% 11/17/2021 9:30 AM EDT Inhaled Oxygen Concentration - - Weight 63.6 kg (140 lb 3.2 oz) 11/17/2021 9:30 AM EDT Height 172.7 cm (5' 7.99) 11/17/2021 9:30 AM EDT Body Mass Index 21.32 11/17/2021 9:30 AM EDT Plan of Treatment Upcoming Encounters Date Type Specialty Care Team Description 12/29/2021 Office Visit Hematology and Oncology Castro Leong MD [facility] DR HEMATOLOGY/[place] [address] Maylin Monet APRN [facility] [place] [address] 12/29/2021 Infusion Hematology and Oncology Health Maintenance Due Date Last Done Comments Covid-19 Vaccine (#1) 08/14/1950 Pneumoccocal Vaccine: 65+ (1 - PCV) 1951 DM Opthalmology Exam 1956 DM Urine Microalbumin yearly 1956 Hepatitis C Screening 1964 Tdap adult 1965 Tetanus vaccine 1965 Colonoscopy 08/14/1991 Zoster vaccine (1 of 2) 1996 Advance Directive 2001 DM Hemoglobin A1c 6 month 06/10/2021 12/11/2020 Influenza (Flu) vaccine (1 of 1 - Influenza standard 11/20/2021 03/17/2006 series) DM Creatinine yearly 12/19/2021 12/19/2020 Procedures Procedure Name Priority Date/Time Associated Diagnosis Comme nts LAB SCAN 11/17/2021 12:00 AM Results for this EDT procedure are i n the results section. LAB SCAN 10/20/2021 12:00 AM Results for this EDT procedure are i n the results section. LAB SCAN 09/24/2021 12:00 AM Results for this EDT procedure are i n the results section. NM PET CT SKULL Routine 09/23/2021 2:26 PM Primary malignant R esults for this BASE TO MID-THIGH EDT neoplasm of left proced ure are in ([facility]) lower lobe of lung the resul ts section. POCT GLUCOSE Routine 09/23/2021 1:13 PM Results f or this EDT procedure are i n the results section. from Last 3 Months Results SCAN DOC: LAB (11/17/2021 12:00 AM EDT)Only the most recent of3 resultswithin the time period is included. Narrative 11/17/2021 12:00 AM EDT This result has an attachment that is no t available. Ordered by an unspecified provider. Scanning Provider MEDIA MGR SCAN EXT ORDR/RSLT NM PET CT Skull Base to Mid-thigh (09/23/2021 2:26 PM EDT) Anatomical Region Laterality Modality Positron Emission To mography (PET) Specimen (Source) Anatomical Location Collection Method / Collectio n Time Received Time / Laterality Volume Impressions 09/26/2021 9:32 AM EDT 1. ??Continued interval decreased size and near complete metabolic resolution of LEFT lower lobe neoplastic process. 2. ??Metabolic activity at the pleural s urface of the LEFT lung including the apex and medial lung base are favored to represent inflammatory change status post pleurodesis. I have personally reviewed the image(s) and the resident's interpretation and agree with the findings, Collin Yang MD at 09/26/2021 9:32 AM Thank you for letting us participate in the care of this patient. ??If you are a health care provider and have any questi ons regarding this report, please contact the number below. ??For patients who have questions please contact the health healthcare management that requested your imaging first. ? Electronically signed by: Gretel Barber, [facility] ([phone]), at 09/26/2021 9:32 AM Narrative 09/26/2021 9:32 AM EDT EXAMINATION: NM PET CT STANDARD SKULL BASE TO MID-THIGH CLINICAL HISTORY: Non-small cell lung ca ncer, assess treatment response 76 yo with metastatic NSCLC on immunothe rapy. ??Restaging exam. Primary malignant neoplasm of LEFT lower lobe of lung previously with malignant pleural effusion, status post talc pleur odesis on 12/09/2020. Patient on immunotherapy. TECHNIQUE: Following IV injection of 18- cragyt-4-jijtgaqfbeoq (FDG) a standard uptake of approximately 60 minutes, a no ncontrast CT scan followed by a PET scan were acquired from the base of the skull to mid thighs. The noncontrast CT was used for anatomic localization and photo n attenuation correction of the PET scan. Blood glucose level: 181 (mg/dL) FDG dose: 11.7 mCi COMPARISON: PET/CT 12/06/2020, and CT chest 06/02/2021 FINDINGS: HEAD/NECK: Normal activity in all soft tissue regio ns of the neck and visualized lower head. CHEST: New FDG uptake at the pleural surface of the LEFT apex. Additionally there are multiple hypermetabolic subcentimeter de nse pleural-based nodules in the LEFT hemithorax (axial images 87, 90, 97, and 116), as well as mild FDG uptake over the LEFT hemidiaphragm. Soft tissue mass at the LEFT base measur es 2.5 x 3.5 cm, previously measured 3.2 x 4.3 cm on 06/02/2021 with near complete metabolic resolution from prior PET/CT. Bibasilar reticular opacities with mild peripherally predominant centrilobular groundglass demonstrating subpleural spa ring. Coronary artery calcifications. ABDOMEN/PELVIS: Normal activity in all soft tissue regio ns. Atherosclerotic calcification of the abd ominal aorta and common iliac arteries. Unchanged fluid-filled LEFT inguinal her hilton versus patent processes vaginalis. SKELETON/EXTREMITIES: Normal activity in all regions of the ax ial and visualized appendicular skeleton. Procedure Note Collin Yang MD - 09/26/2021 EXAMINATION: NM PET CT STANDARD SKULL BA SE TO MID-THIGH CLINICAL HISTORY: Non-small cell lung ca ncer, assess treatment response 76 yo with metastatic NSCLC on immunothe rapy. Restaging exam. Primary malignant neoplasm of LEFT lower lobe of lung previously with malignant pleural effusion, status post talc pleur odesis on 12/09/2020. Patient on immunotherapy. TECHNIQUE: Following IV injection of 18- tqafek-8-bqmumauilvls (FDG) a standard uptake of approximately 60 minutes, a no ncontrast CT scan followed by a PET scan were acquired from the base of the skull to mid thighs. The noncontrast CT was used for anatomic localization and photo n attenuation correction of the PET scan. Blood glucose level: 181 (mg/dL) FDG dose: 11.7 mCi COMPARISON: PET/CT 12/06/2020, and CT chest 06/02/2021 FINDINGS: HEAD/NECK: Normal activity in all soft tissue regio ns of the neck and visualized lower head. CHEST: New FDG uptake at the pleural surface of the LEFT apex. Additionally there are multiple hypermetabolic subcentimeter de nse pleural-based nodules in the LEFT hemithorax (axial images 87, 90, 97, and 116), as well as mild FDG uptake over the LEFT hemidiaphragm. Soft tissue mass at the LEFT base measur es 2.5 x 3.5 cm, previously measured 3.2 x 4.3 cm on 06/02/2021 with near complete metabolic resolution from prior PET/CT. Bibasilar reticular opacities with mild peripherally predominant centrilobular groundglass demonstrating subpleural spa ring. Coronary artery calcifications. ABDOMEN/PELVIS: Normal activity in all soft tissue regio ns. Atherosclerotic calcification of the abd ominal aorta and common iliac arteries. Unchanged fluid-filled LEFT inguinal her hilton versus patent processes vaginalis. SKELETON/EXTREMITIES: Normal activity in all regions of the ax ial and visualized appendicular skeleton. IMPRESSION 1. Continued interval decreased size and near complete metabolic resolution of LEFT lower lobe neoplastic process. 2. Metabolic activity at the pleural carla face of the LEFT lung including the apex and medial lung base are favored to represent inflammatory change status post pleurodesis. I have personally reviewed the image(s) and the resident's interpretation and agree with the findings, Collin Yang MD at 09/26/2021 9:32 AM Thank you for letting us participate in the care of this patient. If you are a health care provider and have any questi ons regarding this report, please contact the number below. For patients w ho have questions please contact the health healthcare management that requested your imaging first. Rizwan Leong MD IMG PET ORDERABLES POCT Glucose (09/23/2021 1:13 PM EDT) P athologist Signature POC Glucose 181 65 - 199 [facility] mg/dL [facility] Comment: Supplemental ranges: <140 mg/dL before meals <180 mg/dL all other times of the day Specimen Anatomical Collection Method Collection Time Receive d Time (Source) Location / / Volume Laterality Blood 09/23/2021 1:13 PM 2 1:13 EDT PM EDT Rizwan Leong MD POINT OF CARE TEST ORDERABLE S Performing Organization Address City/State/ZIP [place] [address] from Last 3 Months Insurance Payer Benefit Plan / Subscriber ID Effective Dates Phone Addre ss Type Group CIGNA MANAGED CIGNA TRUE [id number] 2002-Natalie [phone] [address] MEDICARE CHOICE MANAGED t 8 [id number] [place] [address] Advance Directives Documents on File Type Date Recorded Patient Complaint Investigations Officer Explanati on DNR/Out of hospital 01/29/2021 4:46 PM WILL DNR 07/20/94 Latest Code Status on File Code Status Date Activated Date Inactivated Comments Attempt Cardiopulmonary Resuscitation - 12/09/2020 9:42 AM 021 1:54 PM Inpatient Code Status decision made by: Patient Attempt Cardiopulmonary Resuscitation - 12/09/2020 6:56 AM 021 9:42 AM Inpatient Code Status decision made by: Patient 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
--- OUTSIDE RECORDS SUMMARY | 2021-12-08 08:47 | XMS_ITS | Encounter Summary ---
:1945 Author Organization [facility] 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 Malignant pleural effusion Medication management Rizwan Leong MD [facility] Hem Onc Infusion Oncology Procedures [id number] HEMATOLOGY/ONCOLOGY [place], [place] DEPT [address] [place] [address] Referral ID Status Reason Start Date Expiration Date Visits V isits Requested Authorized [id number] Authorized 08/11/2021 08/11/2022 99 99 Encounter Details Date Type Department Care Team Description 04/14/2021 Infusion Hematology Oncology at [facility]; [facility] Primary malignant neoplasm o f left lower lobe of lung; [address] [place] [address] Malignant pleural effusion [place], [place] [phone] Social History Tobacco Use Types Packs/Day Years [...] Assigned at Date Recorded Not on file documented as of this encounter Progress Notes Kimi Gomez RN - 04/14/2021 9:00 AM EST INFUSION THERAPY ADMINISTRATION NOTES DIAGNOSIS: NSCLC CYCLE #: 3 Day1 REASON FOR VISIT: Nivolumab,Ipilimumab Infusion SUBJECTIVE Mr. Mcwilliams is here for C Nivolumab/Ipilimumab infusion. He was seen by provider prior to infusion today. He has no questions/concerns and is ready for treatment today. OBJECTIVE LAB DATA: Labs drawn today at [facility]. Reviewed and found adequate for treatment today. Pre administration: Chemotherapy orders independently verified for drug name, route, and dosage per patient's height, weight and BSA by TAMMY Che and pharmacist on-site. REACTIONS (DESCRIPTION, TIME, INTERVENTION AND EFFECTIVENESS) none ASSESSMENT Mr. Mcwilliams was awake, alert and tolerated treatment well. PLAN Return to clinic in 3 weeks for consideration of C4. Patient was reminded to call in the interim with any questions/concerns. documented in this encounter Plan of Treatment Upcoming Encounters Date Type Specialty Care Team Description 12/29/2021 Office Visit Hematology and Oncology Castro Leong MD [facility] [address] HEMATOLOGY/[place] [address] Maylin Monet APRN [facility] [address] HEMATOLOGY [place] [address] 12/29/2021 Infusion Hematology and Oncology documented as of this encounter Visit Diagnoses Diagnosis Medication management Encounter for long-term (current) use of other medications Primary malignant neoplasm of left lower lobe of lung Malignant neoplasm of lower lobe, bronch us, or lung Malignant pleural effusion documented in this encounter Administered Medications Inactive Administered Medications - up to 3 most recent administrations Medication Order MAR Action Action Date Dose Rate Site ipilimumab (Yervoy) 60 mg in New Bag 04/14/2021 11:09 AM EST 60 mg 124 mL/hr sodium chloride 0.9% 62 mL infusion 60 mg (rounded from 58.7 mg = 1 mg/kg/dose ? 58.7 kg Treatment plan Recorded weight), Intravenous, ONCE, 1 dose, On Wed04/14/21 at 1045, Administer over 30 Minutes, Flush line with NS after each dose, This agent is restricted to outpatient use. Is this drug being given as an outpatient? Yes nivolumab (Opdivo) 360 mg in New Bag 04/14/2021 10:21 AM EST 360 m g 272 mL/hr sodium chloride 0.9% 136 mL infusion 360 mg, Intravenous, ONCE, 1 dose, On Wed04/14/21 at 1045, Administer over 30 Minutes, Flush line with NS after each dose, This agent is restricted to outpatient use. Is this drug being given as an outpatient? Yes documented in this encounter Care Teams Weatherization And Housing Inspector Relationship Specialty Start Date End Date Paxton Segura MD PCP - General Family Medicine 12/03/[address] [place] [address] documented as of this encounter
--- OUTSIDE RECORDS SUMMARY | 2021-12-08 08:47 | XMS_ITS | Encounter Summary ---
:1945 Author Organization [facility] [place] [address] Care Team Providers Name Role Phone Paxton Segura MD Primary Care Provider [phone] Encounter Details Date Type Department Care Team Description 04/30/2021 Ancillary Procedure Radiology Library at [facility] [address] [facility] [address] [facility] [place] [address] [place], [place] [phone] [id number] (Wo rk) Social History Tobacco Use Types Packs/Day Years [...] on file documented as of this encounter Plan of Treatment Upcoming Encounters Date Type Specialty Care Team Description 12/29/2021 Office Visit Hematology and Oncology Castro Leong MD [facility] HEMATOLOGY/[place] [address] Maylin Monet APRN [facility] [place] [address] 12/29/2021 Infusion Hematology and Oncology documented as of this encounter Procedures Procedure Name Priority Date/Time Associated Diagnosis Comme nts FILM LIBRARY Routine 04/30/2021 8:14 PM Results f or this STORAGE ONLY CT EST procedure ar e in CHEST the results section. documented in this encounter Results Film Library- Storage Only CT Chest (04/30/2021 8:14 PM EST) Specimen (Source) Anatomical Location Collection Method / Collectio n Time Received Time / Laterality Volume Narrative RAD - 04/30/2021 8:14 PM EST This exam is auto-finalizing. It's purpo se is for storage only. Tati Walden APRN IMPadmini FILM LIBRARY ORDERABLES Performing Organization Address City/State/ZIP Code Phon e Number [place], [place] documented in this encounter Visit Diagnoses Not on filedocumented in this encounter Care Teams Software Configuration Specialist Relationship Specialty Start Date End Date Paxton Segura MD PCP - General Family Medicine 12/03/[address] [place] [address] documented as of this encounter
--- OUTSIDE RECORDS SUMMARY | 2021-12-08 08:47 | XMS_ITS | Encounter Summary ---
:1945 Author Organization [facility] [place] [address] Care Team Providers Name Role Phone Paxton Segura MD Primary Care Provider [phone] Encounter Details Date Type Department Care Team Description 05/05/2021 [facility] [address] [phone] Social History Tobacco Use Types [...] on file documented as of this encounter Miscellaneous Notes Telephone Encounter - Liana Garcia RN - 05/05/2021 2:10 PM EST I called Dr. Segura's office at [facility] and left a msg on triage nurse line with details below. Also faxed note and below msg to [phone] with confirmation. ----- Message from Rizwan Leong MD sent at 05/05/2021 9:43 AM EST ----- Hi, Were going to hold treamtent for a bit. Can you please cancel his next infusion Please schdule him for labs and appt on 05/26/21. Please schedule him for a CT scan at [facility] the week of .-his insurance usually makes it difficult so please try to get this going NAZANIN. Liana, can you please call his primary care office and let them know that we are starting him on steroids which may impact his diabetes and anxiety and so those regimens may need adjustment. Warm handoff. And Liana please call him on Tuesday 05/16 to check on his breathing. Thank you. Danie documented in this encounter Plan of Treatment Upcoming Encounters Date Type Specialty Care Team Description 12/29/2021 Office Visit Hematology and Oncology Castro Loeng MD [facility] DR HEMATOLOGY/[place] [address] Maylin Monet APRN [facility] DR HEMATOLOGY [place] [address] 12/29/2021 Infusion Hematology and Oncology documented as of this encounter Visit Diagnoses Not on filedocumented in this encounter Care Teams Gill Box Tender Relationship Specialty Start Date End Date Paxton Segura MD PCP - General Family Medicine 12/03/[address] [place] [address] documented as of this encounter
--- OUTSIDE RECORDS SUMMARY | 2021-12-08 08:47 | XMS_ITS | Encounter Summary ---
:1945 Author Organization [facility] [place] [address] Care Team Providers Name Role Phone Paxton Segura MD Primary Care Provider [phone] Reason for Visit Treatment/Therapy Plan Authorization (Routine) - Authorized Specialty Diagnoses / Procedures Referred By Contact Refer red To Contact Hematology and Diagnoses Primary malignant neoplasm of left lower lobe of lung Malignant pleural effusion Medication management Rizwan Leong MD [facility] Hem Onc Infusion Oncology Procedures [id number] HEMATOLOGY/ONCOLOGY [place], [place] DEPT [address] [place] [address] Referral ID Status Reason Start Date Expiration Date Visits V isits Requested Authorized [id number] Authorized 08/11/2021 08/11/2022 99 99 Encounter Details Date Type Department Care Team Description 12/08/2021 Infusion Hematology Oncology at [facility]; [facility] Primary malignant neoplasm o f left lower lobe of lung; [address] [place] [address] Malignant pleural effusion [place], [place] [phone] Social History Tobacco Use [...] Visit Hematology and Oncology Castro Leong MD [facility] DR HEMATOLOGY/[place] [address] Maylin Monet APRN [facility] HEMATOLOGY [place] [address] 12/29/2021 Infusion Hematology and Oncology documented as of this encounter Visit Diagnoses Diagnosis Medication management Encounter for long-term (current) use of other medications Primary malignant neoplasm of left lower lobe of lung Malignant neoplasm of lower lobe, bronch us, or lung Malignant pleural effusion documented in this encounter Administered Medications Active Administered Medications - up to 3 most recent administrations Medication Order MAR Action Action Date Dose Rate Site nivolumab (Opdivo) 360 mg in sodium chlo ride 0.9% 136 mL infusion 360 mg, Intravenous, ONCE, 1 dose, On 12/08/21 at 1 000, Administer over 30 Minutes, Flush line with NS after each d ose, This agent is restricted to outpatient use. Is this drug being given as an outpatient? Yes documented in this encounter Care Teams Carton Forming Machine Helper Relationship Specialty Start Date End Date Paxton Segura MD PCP - General Family Medicine 12/03/[address] [place] [address] [address] [place] [address] documented as of this encounter
--- OUTSIDE RECORDS SUMMARY | 2021-12-08 08:47 | XMS_ITS | Encounter Summary ---
:1945 Author Organization [facility] [place] [address] Care Team Providers Name Role Phone Paxton Segura MD Primary Care Provider [phone] Reason for Referral Diagnostic Test (Routine) - Closed Specialty Diagnoses / Procedures Referred By Contact Refer red To Contact Radiology Diagnoses Primary malignant neoplasm of left lower lobe of lung Rizwan Leong MD [facility] Rad Nuclear Med Procedures NM PET CT Skull Base to Mid-thigh [facility] HEMATOLOGY/[place] [address] [place] [address] Referral ID Status Reason Start Date Expiration Date Visits V isits Requested Authorized [id number] Closed Specialty 08/21/2021 11/19/2021 1 1 Service Requested Encounter Details Date Type Department Care Team Description 09/04/2021 Orders Only Hematology and Rizwan Leong, Primary malignant Oncology at [facility] MD neoplasm of left [facility] low er lobe of lung [address] [place] HEMATOLOGY/ONCOLOGY [address] DEPT [phone] [place], [place] [address] (Wo rk) Social History Tobacco Use Types [...] 12/29/2021 Office Visit Hematology and Oncology Castro eLong MD [facility] DR HEMATOLOGY/[place] [address] Maylin Monet APRN [facility] HEMATOLOGY [place] [address] 12/29/2021 Infusion Hematology and Oncology documented as of this encounter Results NM PET CT Skull Base to Mid-thigh [...] who have questions please contact the health transitional care liaison that requested your imaging first. ? Electronically signed by: Gretel Barber, [facility] ([phone]), at 09/26/2021 9:32 AM Narrative 09/26/2021 9:32 [...] immunotherapy. TECHNIQUE: Following IV injection of 18- iziqro-8-asjdyjcvebxc (FDG) a standard uptake of approximately 60 [...] immunotherapy. TECHNIQUE: Following IV injection of 18- cmnhcw-5-eujcxjcpogek (FDG) a standard uptake of approximately 60 [...] ho have questions please contact the health transitional care liaison that requested your imaging first. Rizwan Leong MD IMG PET ORDERABLES documented in this encounter Visit Diagnoses Diagnosis Primary malignant neoplasm of left lower lobe of lung Malignant neoplasm of lower lobe, bronch us, or lung Primary malignant neoplasm of left lower lobe of lung Malignant neoplasm of lower lobe, bronch us, or lung documented in this encounter Care Teams Bone Tender Relationship Specialty Start Date End Date Paxton Segura MD PCP - General Family Medicine 12/03/[address] [place] [address] [address] [place] [address] documented as of this encounter
--- OUTSIDE RECORDS SUMMARY | 2021-12-08 08:47 | XMS_ITS | Encounter Summary ---
:1945 Author Organization [facility] [place] [address] Care Team Providers Name Role Phone Paxton Segura MD Primary Care Provider [phone] Reason for Visit Reason Comments Chemotherapy Cycle 5, Day 1 - Nivolumab Treatment/Therapy Plan Authorization (Routine) - Authorized Specialty Diagnoses / Procedures Referred By Contact Refer red To Contact Hematology and Diagnoses Primary malignant neoplasm of left lower lobe of lung Malignant pleural effusion Medication management Rizwan Leong MD [facility] Hem Onc Infusion Oncology Procedures [id number] [address] HEMATOLOGY/ONCOLOGY [place], [place] DEPT [address] [place] [address] Referral ID Status Reason Start Date Expiration Date Visits V isits Requested Authorized [id number] Authorized 08/11/2021 08/11/2022 99 99 Encounter Details Date Type Department Care Team Description 09/01/2021 Infusion Hematology Oncology at [facility]; [facility] Primary malignant neoplasm o f left lower lobe of lung; [address] [place] [address] Malignant pleural effusion [place], [place] [phone] Social History Tobacco Use [...] documented as of this encounter Progress Notes Va Gray RN - 09/01/2021 10:00 AM EDT INFUSION THERAPY ADMINISTRATION NOTES DIAGNOSIS: NSCLC CYCLE #: Cycle 5, Day 1 - Nivolumab REASON FOR VISIT: To receive chemotherapy. SUBJECTIVE: Chandana offers no complaints. OBJECTIVE: VSS. Weight stable. Seen by provider. Ready to treat. LAB DATA: WBC - 7.06, H/H - 14.5/43.8, Plt Ct - 184, ANC - 4.25, Lytes wnl, BUN/Cr - 24/1.2, TSH/Free T4 - 3.83/0.89 IV ACCESS: PIV Pre administration: Chemotherapy orders independently verified for drug name, route, and dosage per patient's height, weight and BSA by Va Gray, TAMMY and Staff Pharmacist(s). REACTIONS (DESCRIPTION, TIME, INTERVENTION AND EFFECTIVENESS) none ASSESSMENT: Chandana was awake, alert and tolerated treatment well. PIV discontinued prior to dismissal. PLAN: Return to clinic per routine. documented in this encounter Plan of Treatment Upcoming Encounters Date Type Specialty Care Team Description 12/29/2021 Office Visit Hematology and Oncology Castro Leong MD [facility] DR HEMATOLOGY/[place] [address] Maylin Monet APRN [facility] DR [place] [address] 12/29/2021 Infusion Hematology and Oncology documented as [...] Rate Site nivolumab (Opdivo) 360 mg in New Bag 09/01/2021 10:52 AM EDT 360 m g 272 mL/hr sodium chloride 0.9% 136 mL infusion 360 mg, Intravenous, ONCE, 1 dose, On 09/01/21 at 1145, Administer over 30 Minutes, Flush line with NS after each dose, This agent is restricted to outpatient use. Is this drug being given as an outpatient? Yes documented in this encounter Care Teams White Lead Grinder Relationship Specialty Start Date End Date Paxton Segura MD PCP - General Family Medicine 12/03/[address] [place] [address] documented as of this encounter
--- OUTSIDE RECORDS SUMMARY | 2021-12-08 08:47 | XMS_ITS | Encounter Summary ---
:1945 [place] [address] Care Team Providers Name Role Phone Paxton Segura MD Primary Care Provider [phone] Encounter Details Date Type Department Care Team Description 06/02/2021 Ancillary Procedure [facility] [place] [address] HEMATOLOGY/ONCOLOGY [phone] DEPT [place], [place] [address] (Wo rk) Social History Tobacco [...] Visit Hematology and Oncology Castro Leong MD [facility] HEMATOLOGY/[place] [address] Maylin Monet APRN [facility] [place] [address] 12/29/2021 Infusion Hematology and Oncology documented as of this encounter Procedures Procedure Name Priority Date/Time Associated Diagnosis Comme nts FILM LIBRARY Routine 06/02/2021 12:00 AM Results for this STORAGE ONLY CT EDT procedure ar e in CHEST the results section. documented in this encounter Results Film Library- Storage Only CT Chest (06/02/2021 12:00 AM EDT) Specimen (Source) Anatomical Location Collection Method / Collectio n Time Received Time / Laterality Volume Narrative [facility] - 06/03/2021 6:38 AM EDT This exam is auto-finalizing. It's purpo se is for storage only. Rizwan Leong MD G FILM LIBRARY ORDERABLES Performing Organization Address City/State/ZIP Code Phon e Number [place], [place] documented in this encounter Visit Diagnoses Not on filedocumented in this encounter Care Teams Book Cleaner Relationship Specialty Start Date End Date Paxton Segura MD PCP - General Family Medicine 12/03/[address] [place] [address] documented as of this encounter
--- OUTSIDE RECORDS SUMMARY | 2021-12-08 08:47 | XMS_ITS | Encounter Summary ---
:1945 Author Organization [facility] [place] [address] Care Team Providers Name Role Phone Paxton Segura MD Primary Care Provider [phone] Reason for Referral Diagnostic Test (Routine) - Closed Specialty Diagnoses / Procedures Referred By Contact Refer red To Contact Radiology Diagnoses Primary malignant neoplasm of left lower lobe of lung Ann Marie Roberts APRN [facility] Rad Nuclear Med Procedures NM Soto PET CT Skull Base to Mid-thigh [facility] [place] [address] [place] [address] Referral ID Status Reason Start Date Expiration Date Visits V isits Requested Authorized [id number] Closed Specialty 08/21/2021 11/19/2021 1 1 Service Requested Encounter Details Date Type Department Care Team Description 08/11/2021 Office Visit Hematology/Oncology Taylor Leong MD [facility] HEMATOLOGY/[place] [address] Medication management; at [facility], Tati Pimentel APRN [address] [place] [address] [place] [address] Primary malignant neoplasm of left lower lobe of lung; [facility] [address] Anxiety; [place], [place] Drug dermat itis [phone] Social History Tobacco Use Types Packs/Day Years [...] on file documented as of this encounter Last Filed Vital Signs Vital Sign Reading Time Taken Comments Blood Pressure 125/77 08/11/2021 10:03 AM EDT Pulse 72 08/11/2021 10:03 AM EDT Temperature 36.3 ??C (97.3 ??F) 08/11/2021 10:03 AM EDT Respiratory Rate 18 08/11/2021 10:03 AM EDT Oxygen Saturation 100% 08/11/2021 10:03 AM EDT Inhaled Oxygen Concentration - - Weight 59.7 kg (131 lb 9.6 oz) 08/11/2021 10:03 AM EDT Height 172.7 cm (5' 7.99) 08/11/2021 10:03 AM EDT Body Mass Index 20.01 08/11/2021 10:03 AM EDT documented in this encounter Progress Notes ForAnn Marie malik APRN - 08/11/2021 10:00 AM EDT Images from the original note were not included. [place] [address] [phone] Chandana Mcwilliams is being seen for the evaluation of lung cancer. Assessment & Plan: Chandana Mcwilliams is a 75 y.o. male patient with a past medical history significant for HTN, CAD, DM2 withminimal firsthand smoking exposure found to have a malignant pleural effusion with multiple pleural desposits s/p talc pelurodesis. Histology identified squamous cell carcinoma. PD-L1 0%. NGS did not identify actionable variants. 01/16/21- first line carbo/paclitaxel/ipi/nivolumab with overall palliative intent # NSCLC - good and continued response to treatment on imaging. ? Pneumonitis vs infection - no significant sx and radiographic changes resolved on repeat scan. Discussed options. Given how well he is doing but needing to balance potential AI side effects recommended we continue iimmunotherapy with nivolumab alone at this juncture and continue to the prednisone 10mg for a while to help control the rash Assessed for toxicities and ok to proceed with Nivolumab today C4D22 - restage with PET scan before next visit # Rash - likely immune related- improved. Primarily on back and about the same according to patient's - Continue Prednisone and topicals (has triamcinolone cream at home) # Anxiety- Seems improved with higher dose of prozac. He would like Dr Segura to be the main prescriber and grain commodity manager of his mental health regimen. - He is following closely with his PCP - Dr. Segura who Chandana indicated will oversee the meds related to this (Also sees Dr. Bedoya - palliative care.) # Abnormal TFTs - elevated TSH but FT4 WNL - follow for now. # Advance Care Planning- discussed his prognosis on 04.14.21. Explained it yuli depend on how he does at an individual level but that the typical survival would be in the range o 18-24 month - No AD on file-will address at future visit. He is scheduled to see [facility]/Interval History/Subjective: Last seen via on 06/27/21 Feeling pretty good. This is like a miracle. Notes significant improvement in pain when taking a deep inspiration. Energy almost back to normal - just returned from 3 weeks trip and had a great time. Traveled 5000 miles and did a lot of the driving. Also did some hiking/walking. Lots of time with family including children and grandchildren. Had a head cold for a few days while on trip - thinks he caught something from granchildren. Mental health improving and his supports this. Feels he is now able to talk about the future without becoming as anxious, especially related to unknowns and life expectancy. Taking one lorazepam (half a tablet) at night - also Benadryl at night to help control itching. Taking the prozac 60mg. Rash is unchanged. Skin itches in areas that are not reddened. Primarily on back. Continues to take Prednisone 10 mg daily. Not currently using any topicals. Working around house and on selling off some property Bowels have been soft - moves bowels at least once a day (sometimes twice). No diarrhea Does get a cough after moderate activity. Productive at times - mostly dry. Some chronic hoarseness over the past few months - unchanged. Is concerned about blood sugars - checks about 8 times daily using free style zabrina. Like to keep in200 range but occasionally drops too low. PCP helping manage this although Chandana change dosing on his long acting insulin. Social History/Support Network: Home situation: . Lives in [facility]. 2 children-one in [place] and one in [place]. 3grandkids. 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 Tobacco use: Never smoker. Does have some second smoke exposure. Alcohol use: 7 drinks of wine per week. Notes that he had Tendency to more heavy drinking in the past Drug use: Marijuana smoking in college.. Now maybe 1-2x per month Financial Distress: None reported Likes working with his tractor on their [place] acres. service: No Family History: Mother- Dscd 90s old age Father- Dscd 90s CAD. No known history of lung cancer or other cancers Oncology Overview: Cancer Staging Primary malignant neoplasm of left lower lobe of lung Staging form: Lung, AJCC 8th Edition - Clinical stage from 12/22/2020: Stage JUDAH (cT3, cN1, cM1a) - Signed by Rizwan Leong MD on 12/22/2020 Presentation: Chandana Mcwilliams is a 75 y.o. male patient with a past medical history significant for HTN,CAD, DM2 with minimal firsthand smoking exposure found to have a recurrent pleural effusion in the summer 2020 as detailed below. Staging/PreTx Eval: 11/20/20 CT Chest 12.06.20 PET 1. A 7 cm FDG avid necrotic appearing mass in the medial left lower lobe abutting the medial pleural margin and pericardium, consistent with primary lung malignancy. Pericardial invasion is not excluded. 2. FDG avid pleural nodularity in the left lower lobe and moderate-sized mildly FDG avid left pleural effusion, consistent with pleural metastases and malignant effusion. 3. Small left hilar tyree metastasis. 4. No extrathoracic sites of metastasis. 12/09/20 Left sided VATS Left VATS, LLL mass with multiple pleural nodularities and a 2x2 cm mass at the posterior and inferior chest wall. Approximately 1 L of serosanguineous fluid removed. Frozen section for pleural biopsies revealed possible NSCLC. Talc Pleurodesis performed 12/25/20 MRI Brain - [facility] Pathology: 12.09.20 Pleural biopsies Tissue: Left pleural biopsy #3, biopsy Tumor Proportion Score (TPS): ? % Expression: 0 ? Surgical Pathology DIAGNOSIS A - Left pleural biopsy #1 ?? for frozen section ??- Squamous cell carcinoma - ?? (see Discussion.) B - Left pleural biopsy #2 ?? for frozen section ??- Squamous cell carcinoma - ?? (see Discussion.) C - Left pleural biopsy #2, biopsy - Squamous cell carcinoma - ?? (see Discussion.) Molecular Data: PIK3CA p.E545K c.1633G>A BRAF p.G466A c.1397G>C TP53 p.W91* c.272G>A Treatment Course: 01.16.21 C1 Carbo/Pac/Ipi/Nivo 02.11.21 C1D22 Nivo, carbo, paclitaxel. Restaging with improved disease. 03.03.21 C2 Ipi/Nivo alone 04.14.21 C3 ONCBCN ONCOLOGY (AMB) 01/16/2021 02/11/2021 03/03/2021 03/24/2021 04/14/2021 06/09/2021 06/30/2021 Day, Cycle Day 1, Cycle 1 Day 22, Cycle 1 Day 1, Cycle 2 Day 22, Cycle 2 Day 1, Cycle 3 Day 22, Cycle 3 Day 1, Cycle 4 CARBOplatin (Paraplatin) IV 431 mg 394 mg - - - - - ipilimumab (Yervoy) IV 1 mg/kg/dose = 60 mg - 1 mg/kg/dose = 60 mg - 1 mg/kg/dose = 60 mg - - nivolumab (Opdivo) IV 360 mg 360 mg 360 mg 360 mg 360 mg 360 mg 360 mg PACLitaxeL (Taxol) IV 200 mg/m2/dose = 336 mg 200 mg/m2/dose = 336 mg - - - - - No Known Allergies Medications 06/30/21 0848 Medication Sig Taking? predniSONE (Deltasone) 10 mg Tablet Take 1 tablet by mouth daily. predniSONE (Deltasone) 10 mg Tablet Take 10 mg by mouth daily. LORazepam (Ativan) 1 mg Tablet TAKE 1/2 TO 1 TABLET BY MOUTH THREE TIMES A DAY NEEDED FOR ANXIETY/PANIC sulfamethoxazole-trimethoprim DS (Bactrim DS) 800-160 mg Tablet Take 1 tablet by mouth three times aweek. Patient not taking: Reported on 06/27/2021 triamcinolone (ARISTOCORT) 0.5 % Cream Apply topically 2 times daily. Patient not taking: Reported on 06/09/2021 FLUoxetine (PROzac) 20 mg Tablet 60 mg. Patient stated taking three tablets daily to equal 60 mg total daily. dorzolamide-timoloL (Cosopt) 22.3-6.8 mg/mL Drops INSTILL ONE DROP INTO BOTH EYES TWO TIMES A DAY prochlorperazine (Compazine) 10 mg Tablet Take 1 tablet by mouth every 6 hours as needed for Nausea. Patient not taking: No sig reported naproxen sodium (ALEVE) 220 mg Capsule Take by mouth. acetaminophen (Tylenol) 500 mg Tablet Take 2 tablets by mouth every 6 hours. Patient not taking: No sig reported insulin lispro (HumaLOG) Insulin Pen Inject subcutaneously 3 times daily (before meals). Sliding scale Jardiance 25 mg Tablet 12.5mg daily Glucagon 1 mg Recon Soln Inject subcutaneously. Lantus Solostar U-100 Insulin pen 16 Units. Patient stating taking 20 units at HS. losartan (Cozaar) 50 mg Tablet TAKE 1 TABLET BY MOUTH DAILY Janumet 50-1,000 mg Tablet TAKE 1 TABLET BY MOUTH TWICE DAILY valACYclovir (Valtrex) 500 mg Tablet Take by mouth as needed. As needed latanoprost (XALATAN) 0.005 % ophthalmic solution 1 drop nightly. atorvastatin (LIPITOR) 10 mg tablet 10mg, PO, Once daily I reviewed the problem list, allergies, medications, past medical history, social history and familyhistory within the EPIC encounter. Pertinent details are noted above. Pertinent positives and negative from the Review of Systems are as summarized above in the HPI. Physical Exam: Wt Readings from Last 3 Encounters: 08/11/21 59.7 kg (131 lb 9.6 oz) 06/30/21 60.3 kg (133 lb) 06/09/21 60.2 kg (132 lb 12.8 oz) Temp Readings from Last 3 Encounters: 08/11/21 36.3 ??C (97.3 ??F) (Temporal) 06/30/21 36.1 ??C (96.9 ??F) (Temporal) 06/09/21 36.3 ??C (97.3 ??F) (Temporal) BP Readings from Last 3 Encounters: 08/11/21 125/77 06/30/21 143/79 06/09/21 121/68 Pulse Readings from Last 3 Encounters: 08/11/21 72 06/30/21 77 06/09/21 77 There is no height or weight on file to calculate BSA. Wt Readings from Last 3 Encounters: 08/11/21 59.7 kg (131 lb 9.6 oz) 06/30/21 60.3 kg (133 lb) 06/09/21 60.2 kg (132 lb 12.8 oz) KPS Score ECOG Grade Definition 90-100 0 Fully active, able to carry on all pre-disease performance without restriction X 70-80 1 Restricted in physically strenuous activity but ambulatory and able to carry out work of a light or sedentary nature, e.g., light house work, office work 50-60 2 Ambulatory and capable of all selfcare but unable to carry out any work activities; up and about more than 50% of waking hours 30-40 3 Capable of only limited selfcare; confined to bed or chair more than 50% of waking hours 10-20 4 Completely disabled; cannot carry on any selfcare; totally confined to bed or chair ECOG 1 Physical Exam BP 125/77 (Patient Position: Sitting) Pulse 72 Temp 36.3 ??C (97.3 ??F) (Temporal) Resp 18 Ht 172.7 cm (5' 7.99) Wt 59.7 kg (131 lb 9.6 oz) SpO2 100% BMI 20.01 kg/m?? Review of Laboratory Data: 08/11/21 WBC 8.91, Hgb 14.8, MCV 95, Plt ct 214, ANC 6.01 Na 135, K+ 4.4, BUN 31, Creat 1.2, Glucose 355, Calcium 9.1, Mag 2.0, Total bili 0.7, AST, 10, ALT 21, Alk Phos 49, Albumin 3.7, Total prot 6.6, TSH 3,80, Free T4 0.96 3.14.22 White blood cell count 8.79 hemoglobin 15.1 platelet count 201,000 absolute neutrophil count 6.77 Sodium 136 potassium 4.8 chloride 101 BUN 35 creatinine 1.3 up from 1.0 glucose 267 calcium 8.8 magnesium 2.1 total bilirubin 0.4 AST pending ALT 23 alk phos 46 TSH 3.57 and free T4 0.77 05/26/21- WBC-10.29 Hgb/Hct-15.2/46.7 Plt-180 ANC-6.74 Na-139 K+-4.1 BUN/Cr-32/1.0 Glucose-231 Ca-9.2 Mg-2.2 T. Bili-0.5 AST-13 ALT-23 Alk phos-43 Albumin-3.7 TSH-5.03 FT4-0.79 2.14.22 White blood cell count 8.16 hemoglobin 14.9 platelet count 182,000 absolute neutrophil count 5.29 Sodium 135 potassium 4.0 chloride 102 BUN 28 creatinine 1.0 down from 1.2 glucose 238 calcium 8.9 magnesium 2.0 total bilirubin 0.4 AST 11 ALT 16 alk phos 60 albumin 3.6 TSH 5.28 up from 3.98 from 5.13free T4 remains within normal limits at 0.91 1.24.22 Sodium 139 potassium 4.0 chloride 103 BUN 27 creatinine 1.2 which is stable glucose 246 calcium 9.0 magnesium 1.9 total bilirubin 0.4 alk phos 58 AST 10 ALT 15 TSH 3.98 down from 5.13 free T4 normal at0.92 White blood cell count 8.12 hemoglobin 14.6 platelet count 179,000 absolute neutrophil count 5.44 03/24/21- WBC-7.43 Hgb/Hct-14.3/44.3 Plt-222 ANC-4.47 Na-136 K+-4.1 BUN/Cr-26/1.2 Glucose-297 Ca-9.0 Mg-2.1 T. Bili-0.5 AST-11 ALT-15 Alk phos-65 Albumin-3.7 TSH-5.13 Free T4-1.00 03/03/2021 White blood cell count 6.67 hemoglobin 14.1 platelet count 222,000 absolute neutrophil count 3.73 Sodium 138 potassium 4.2 chloride 104 BUN 26 creatinine stable at 1.0 glucose 170 calcium 8.6 magnesium 2.0 total bilirubin 0.3 AST 13 ALT 15 alk phos 63 TSH increased at 5.32 from 4.15 free T4 within normal limits at 0.88 though down from 0.96 the prior 11.22.21 White blood cell count 8.93 hemoglobin 13.9 MCV 89.3 platelet count 154,000 absolute neutrophil count 4.87 Sodium 140 potassium 4.3 chloride 104 BUN 25 creatinine 1.0 which is stable glucose slightly elevated at 213 calcium 9.0 magnesium 1.9 total bilirubin 0.5 AST 13 ALT 17 alk phos 61 TSH 4.15 which is high free T4 within normal limits at 0.96 down from 0.99 01/06/2021 White blood cell count 12.28 hemoglobin 14.2 platelet count 238,000 absolute neutrophil count 9.38 Sodium 139 potassium 4.3 chloride 101 BUN 22 creatinine 1.0 glucose 200 calcium 9.5 magnesium 2.3 total bilirubin 0.5 AST 13 ALT 18 alk phos 77 TSH 3.21 free T4 1.09 Review of Imaging Data: 3.14.22 CT Chest 2.9.[address] Chest 12[address]8.21 CT Review of Pathology Data: documented in this encounter Miscellaneous Notes Addendum Note - Ann Marie Roberts APRN - 08/11/2021 10:00 AM EDT Addended by: ANN MARIE ROBERTS on: 08/11/2021 01:37 PM Modules accepted: Orders documented in this encounter Plan of Treatment Upcoming Encounters Date Type Specialty Care Team Description 12/29/2021 Office Visit Hematology and Oncology Castro Leong MD [facility] DR HEMATOLOGY/[place] [address] Ann Marie Roberts APRN [facility] [place] [address] 12/29/2021 Infusion Hematology and Oncology Scheduled Orders Name Type Priority Associated Diagnoses Order S chedule NM Soto PET CT Imaging Routine Primary malignant Exp ected: 08/25/2021 Skull Base to Mid-thigh neoplasm of left lower (Approximate), lobe of lung Expires: 2021 documented as of this encounter Visit Diagnoses Diagnosis Medication management Encounter for long-term (current) use of other medications Primary malignant neoplasm of left lower lobe of lung Malignant neoplasm of lower lobe, bronch us, or lung Anxiety Anxiety state, unspecified Drug dermatitis Dermatitis due to drugs and medicines dipika knox internally documented in this encounter Care Teams Rivet Passer Relationship Specialty Start Date End Date Paxton Segura MD PCP - General Family Medicine 12/03/[address] [place] [address] documented as of this encounter
--- OUTSIDE RECORDS SUMMARY | 2021-12-08 08:47 | XMS_ITS | Encounter Summary ---
:1945 Author Organization [facility] [place] [address] Care Team Providers Name Role Phone Paxton Segura MD Primary Care Provider [phone] Reason for Visit Reason Comments Chemotherapy Cycle 4, Day 22; Nivolumab Treatment/Therapy Plan Authorization (Routine) - Authorized Specialty Diagnoses / Procedures Referred By Contact Refer red To Contact Hematology and Diagnoses Primary malignant neoplasm of left lower lobe of lung Malignant pleural effusion Medication management Rizwan Leong MD [facility] Hem Onc Infusion Oncology Procedures [id number]PD[address] HEMATOLOGY/ONCOLOGY [place], [place] DEPT [address] [place] [address] Referral ID Status Reason Start Date Expiration Date Visits V isits Requested Authorized [id number] Authorized 08/11/2021 08/11/2022 99 99 Encounter Details Date Type Department Care Team Description 08/11/2021 Infusion Hematology Oncology at [facility]; [facility] Primary malignant neoplasm o f left lower lobe of lung; [address] [place] [address] Malignant pleural effusion [place], [place] [phone] Social History Tobacco Use [...] documented as of this encounter Progress Notes Jermain Prasad RN - 08/11/2021 10:30 AM EDT INFUSION THERAPY ADMINISTRATION NOTES DIAGNOSIS: NSCLC CYCLE #: 4, Day REASON FOR VISIT: Nivolumab Infusion SUBJECTIVE Mr. Mcwilliams is here for Nivolumab infusion. Saw Dr. Leong in clinic and cleared for treatment. He has no questions/concerns and is ready for treatment today. OBJECTIVE LAB DATA: Labs drawn today at [facility]. Reviewed and found adequate for treatment today. Pre administration: Chemotherapy orders independently verified for drug name, route, and dosage per patient's height, weight and BSA by JERMAIN PRASAD, TAMMY and pharmacist on-site. REACTIONS (DESCRIPTION, TIME, INTERVENTION AND EFFECTIVENESS) none ASSESSMENT Mr. Mcwilliams was awake, alert and tolerated treatment well. PLAN Return to clinic per plan. Patient was reminded to call in the interim with any questions/concerns. documented in this encounter Plan of Treatment Upcoming Encounters Date Type Specialty Care Team Description 12/29/2021 Office Visit Hematology and Oncology Castro Leong MD [facility] DR HEMATOLOGY/[place] [address] Maylin Monet APRN [facility] HEMATOLOGY [place] [address] 12/29/2021 Infusion Hematology and Oncology documented as [...] nivolumab (Opdivo) 360 mg in New Bag 08/11/2021 11:40 AM EDT 360 m g 272 mL/hr sodium chloride 0.9% 136 mL infusion 360 mg, Intravenous, ONCE, 1 dose, On Wed08/11/21 at 1215, Administer over 30 Minutes, Flush line with NS after each dose, This agent is restricted to outpatient use. Is this drug being given as an outpatient? Yes documented in this encounter Care Teams Wireless Sales Consultant Relationship Specialty Start Date End Date Paxton Segura MD PCP - General Family Medicine 12/03/[address] [place] [address] [address] [facility] [address] [place] [address] documented as of this encounter
--- OUTSIDE RECORDS SUMMARY | 2021-12-08 08:47 | XMS_ITS | Encounter Summary ---
:1945 Author Organization [facility] [place] [address] Care Team Providers Name Role Phone Paxton Segura MD Primary Care Provider [phone] Encounter Details Date Type Department Care Team Description 06/27/2021 TH Visit Hematology and Rizwan Leong MD [facility] DR HEMATOLOGY/[place] [address] Primary malignant neoplasm of left lower lobe of lung; (TeleHealth) Oncology at [facility] Roxi Romero APRN [facility] DR HEMATOLOGY-[place] [address] [place] [address] Social History Tobacco Use Types Packs/Day Years [...] documented as of this encounter Progress Notes Rizwan Leong MD - 06/27/2021 10:00 AM EDT Images from the original note were not included. Thoracic Oncology [facility] [place] [id number] [phone] Due to the COVID-19 pandemic this visit is being conducted via telephone. I called the patient and and obtained his consent to conduct this visit and notified him that his insurance would be billed forthis and that copays may apply. 25 minutes was spent in reviewing imaging and records, speaking with the patient, documentation and coordinating care on the day of the visit. Chandana Mcwilliams is being seen for the [...] balance potential AI side effects recommended we continu eimmunotherapy with nivolumab alone at this juncture and continue to the prednisone 10mg for a while to help control the rash - Ok to treat next week with nivolumab alone - They will then go on vacation and will have next cycle on 08.11.21 and would [address]age with CT scan after that # Rash - likely immune related- improved. - Continue Prednisone and topicals # Anxiety- Seems improved with higher dose of prozac. He would like Dr Segura to be the main prescriber and supportive employment case manager of his mental health regimen. - [...] future visit. He is scheduled to see Palliative Care this week. HPI/Interval History/Subjective: Chandana is joined by his Myriam on the phone Last seen 05/26/2021 I am fine In my chest area where the tumor is he had a sensation of tension/pain with a deep breath but thathas actually been diminishing. Walked a 1.5-2 miles including a hill several times. Did not get winded at all. Mental health seems a lot better with the confucianism of spring. Taking one lorazepam (half a tablet) at night Taking the prozac 60mg. Stamina is better. Going out to do dinners. Rash has diminished significantly. Still does have some itching. No topicals. Prednisone 10mg a day. Socially very active-working on his cabin. Left hamstrings after a few miles does get tingling and itching. Deep muscle Has hx of sciatica. Rototilled his garden recently. Bowels tending toward constipation- no diarrhea. Not unusual No fevers or infections. Does get a cough after drinking at times. Some chronic hoarseness over the past few months Will be gone for the first three weeks of July Mood has been better on 60mg fluoxetine daily. Using the lorazepam 3x a day 0.5mg TID which helps. Continues to be active COVID end of May. Social History/Support Network: Home situation: . Lives in [facility]. 2 children-one in [place] and one in [place]. 3grandkids. 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 Tobacco use: Never smoker. Does have some [...] with improved disease. 03.03.21 C2 Ipi/Nivo alone 1.24.22 C3 ONCBCN ONCOLOGY (AMB) 01/16/2021 02/11/2021 03/03/2021 03/24/2021 04/14/2021 06/09/2021 Day, Cycle Day 1, Cycle 1 Day 22, Cycle 1 Day 1, Cycle 2 Day 22, Cycle 2 Day 1, Cycle 3 Day 22, Cycle 3 CARBOplatin (Paraplatin) IV 431 mg 394 mg - - - - ipilimumab (Yervoy) IV 1 mg/kg/dose = 60 mg - 1 mg/kg/dose = 60 mg - 1 mg/kg/dose = 60 mg - nivolumab (Opdivo) IV 360 mg 360 mg 360 mg 360 mg 360 mg 360 mg PACLitaxeL (Taxol) IV 200 mg/m2/dose = 336 mg 200 mg/m2/dose = 336 mg - - - - No Known Allergies Medications 06/09/21 1342 Medication Sig Taking? LORazepam (Ativan) 1 mg Tablet TAKE 1/2 TO 1 TABLET BY MOUTH THREE TIMES A DAY NEEDED FOR ANXIETY/PANIC sulfamethoxazole-trimethoprim DS (Bactrim DS) 800-160 mg Tablet Take 1 tablet by mouth three times aweek. triamcinolone (ARISTOCORT) 0.5 % Cream Apply topically [...] Inject subcutaneously. Lantus Solostar U-100 Insulin pen 20 Units. Patient stating taking 20 units at HS. losartan (Cozaar) 50 mg Tablet TAKE 1 TABLET BY MOUTH DAILY Janumet 50-1,000 mg Tablet TAKE 1 TABLET BY MOUTH TWICE DAILY valACYclovir (Valtrex) 500 mg Tablet Take by mouth as needed. As needed timolol (TIMOPTIC) 0.25 % ophthalmic solution 1 drop daily. latanoprost (XALATAN) 0.005 % ophthalmic solution 1 [...] Exam: Wt Readings from Last 3 Encounters: 06/09/21 60.2 kg (132 lb 12.8 oz) 05/26/21 58.9 kg (129 lb 12.8 oz) 05/05/21 59 kg (130 lb) Temp Readings from Last 3 Encounters: 06/09/21 36.3 ??C (97.3 ??F) (Temporal) 05/26/21 36.6 ??C (97.8 ??F) (Temporal) 05/05/21 36.4 ??C (97.5 ??F) (Temporal) BP Readings from Last 3 Encounters: 06/09/21 121/68 05/26/21 130/80 05/05/21 134/80 Pulse Readings from Last 3 Encounters: 06/09/21 77 05/26/21 75 05/05/21 77 There is no height or weight on file to calculate BSA. Wt Readings from Last 3 Encounters: 06/09/21 60.2 kg (132 lb 12.8 oz) 05/26/21 58.9 kg (129 lb 12.8 oz) 05/05/21 59 kg (130 lb) KPS Score ECOG Grade Definition 90-100 0 [...] bed or chair ECOG 1 Physical Exam There were no vitals taken for this visit. Review of Laboratory Data: 06.02.21 White blood cell count 8.79 hemoglobin 15.1 [...] AST-13 ALT-23 Alk phos-43 Albumin-3.7 TSH-5.03 FT4-0.79 2. White blood cell count 8.16 hemoglobin 14.9 platelet count 182,000 absolute neutrophil count 5.29 Sodium 135 potassium 4.0 chloride 102 BUN 28 creatinine 1.0 down from 1.2 glucose 238 calcium 8.9 magnesium 2.0 total bilirubin 0.4 AST 11 ALT 16 alk phos 60 albumin 3.6 TSH 5.28 up from 3.98 from 5.13free T4 remains within normal limits at 0.91 1..22 Sodium 139 potassium 4.0 chloride 103 BUN [...] of Pathology Data: documented in this encounter Plan of Treatment Upcoming Encounters Date Type Specialty Care Team Description 12/29/2021 Office Visit Hematology and Oncology Castro Leong MD [facility] HEMATOLOGY/[place] [address] Maylin Monet APRN [facility] HEMATOLOGY [place] [address] 12/29/2021 Infusion Hematology and Oncology documented as of this encounter Visit Diagnoses Diagnosis 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
--- OUTSIDE RECORDS SUMMARY | 2021-12-08 08:47 | XMS_ITS | Encounter Summary ---
:1945 Author Organization [facility] Address [address] [place] [address] Care Team Providers Name Role Phone Paxton Segura MD Primary Care Provider [phone] Encounter Details Date Type Department Care Team Description 04/15/2021 Unscheduled Hematology/Oncology Melissa Pablo Primar y malignant Encounter at [facility] RD neoplasm of left [address] [place] [address] Drive [facility] lower lobe of lung [place], [place] [address] [address] HEMATOLOGY AND [phone] ONCOLOGY [place] [id number] Social History Tobacco Use Types Packs/Day Years [...] documented as of this encounter Progress Notes Melissa Pablo RD - 04/15/2021 8:34 PM EST [facility] Initial Assessment Patient Name: Chandana Mcwilliams Diagnosis: NSCLC stage JUDAH Referred by: Dr. Leong Assessment: HPI Patient Active Problem List Diagnosis Code ??? Actinic keratosis L57.0 ??? Chronic sinusitis J32.9 ??? Depressive disorder F32.9 ??? Diabetes mellitus E11.9 ??? Elevated PSA R97.20 ??? Encounter for screening colonoscopy Z12.11 ??? Flatulence R14.3 ??? Open-angle glaucoma H40.10X0 ??? Herpes simplex B00.9 ??? History of hemorrhoidectomy Z98.890 ??? Hyperlipidemia E78.5 ??? Impacted cerumen of right ear H61.21 ??? Irritable colon K58.9 ??? Kidney stone N20.0 ??? Pleural effusion, left J90 ??? Polyp of cecum K63.5 ??? Prostatism N40.0 ??? Sigmoid polyp K63.5 ??? Skin lesion L98.9 ??? Status post inguinal hernia repair Z98.890, Z87.19 ??? Upper back pain M54.9 ??? Varicose veins of lower extremity I83.90 ??? Weight loss R63.4 ??? Mass of lower lobe of left lung R91.8 ??? Preoperative testing Z01.818 ??? Pulmonary mass R91.8 ??? Recurrent pleural effusion on left J90 ??? Pleural effusion J90 ??? Primary malignant neoplasm of left lower lobe of lung C34.32 ??? 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 Medication management Z79.899 Estimated body mass index is 19.66 kg/m?? as calculated from the following: Height as of 04/14/21: 172.1 cm (5' 7.76). Weight as of 04/14/21: 58.2 kg (128 lb 6.4 oz). Wt Readings from Last 3 Encounters: 04/14/21 58.2 kg (128 lb 6.4 oz) 03/24/21 60.2 kg (132 lb 12.8 oz) 03/03/21 60.8 kg (134 lb) Weight has varied, ranging 127-132# since November 2020 Patient has had 4# loss in past three weeks (3.0% body weight)--not clinically significant Medications: Prozac, Ativan prn, compazine prn, aleve, tylenol, sliding scale humalog, jardiance, 12units lantus, losartan, janumet, lipitor Patient started 01/16/21- first line carbo/paclitaxel/ipi/nivolumab with overall palliative intent. Since 03/03/21 he has continued with ipilimumab and nivolumab. Labs on 04/14: Ca 9.0, BG 246H, BUN 27H, Creat 1.2, Alb 3.4, TBili 0.4, AlkPhos 58, Na 139, K 4.0, AST 10, ALT 15, Mg 1.9, TSH 3.98H, WBC 8.12, H/H 14.6/45.0 Nutrition Screen 04/15/2021 04/14/2021 Reason for assessment Unintentional weight loss - Total MST Score - 2 Functional Status 04/15/2021 Appetite Reduced compared to usual intake Blood glucose levels Hypergylcemic Patient reports his appetite is a little less. He has a diagnosis of DM and uses [employer] [place] CGM to track blood glucose. His post-prandial readings can go up to 300-400 mg/dl at times. He takes insulin as well as jardiance and janumet. Diet History Usual intake: Breakfast: Oatmeal and fruit Lunch: [place] salad on 1 slice bread, banana cream pie Dinner: Chicken, beans Snacks: Occasionally cardamom bun Beverages: 4-5 cups coffee/day, water Patient lives in [place] with his . He is conscious of his carbohydrate intake, given diagnosis of IDDM, but he does include a fair amount of carbs in his diet. He feels he could increase his portion sizes and try protein drinks in order to prevent further weight loss. Malnutrition Characteristics 04/15/2021 Insufficient Energy Intake Present Nutrition Diagnosis 04/15/2021 Problems Involuntary weight loss related to NSCLC and palliative immunotherapy treatment as evidenced by 4# loss in past three weeks and BMI 19.66. Estimated needs based on current body weight of 58.2 [id number] kcals (35-40 kcal/kg) 58-87 grams protein (1-1.5 g/kg) ~2.3 L fluid (1 ml/kcal) Nutrition Intervention: ? Encouraged to increase PO intake by increasing portion sizes and /or frequency of meals and snacks. ? Discussed additions/increases of protein and/or fats to add calories without impacting blood glucose. Wrote patient a list of these foods. ? Provided samples and coupons of Glucerna. Monitoring and Evaluation: Will follow up with Chandana on 05/05 to re-evaluate. I have provided him with my card and contact information should he have any questions in the meantime. Thank you for this consult. Melissa Pablo RD documented in this encounter Plan of Treatment Upcoming Encounters Date Type Specialty Care Team Description 12/29/2021 Office Visit Hematology and Oncology Castro Leong MD [facility] DR HEMATOLOGY/[place] [address] Maylin Monet APRN [facility] [address] [place] [address] 12/29/2021 Infusion Hematology and Oncology documented as of this encounter Visit Diagnoses Diagnosis Primary malignant neoplasm of left lower lobe of lung Malignant neoplasm of lower lobe, bronch us, or lung documented in this encounter Care Teams Casino Gaming Inspector Relationship Specialty Start Date End Date Paxton Segura MD PCP - General Family Medicine 12/03/[address] [place] [address] documented as of this encounter
--- OUTSIDE RECORDS SUMMARY | 2021-12-08 08:47 | XMS_ITS | Encounter Summary ---
:1945 Author Organization [facility] [place] [address] Care Team Providers Name Role Phone Paxton Segura MD Primary Care Provider Encounter Details Date Type Department Care Team Description 05/05/2021 Office Visit Hematology/Oncology [address] [address] Primary malignant at [facility] neoplasm of left lower [address] [place] [address] [address] lobe of lung [place], [place] HEMATOLOGY AND [address] ONCOLOGY [phone] [place] [id number] Social History Tobacco Use Types Packs/Day Years [...] encounter Progress Notes Melissa Pablo RD - 05/05/2021 9:30 AM EST Nutrition Follow-Up Spoke with patient in clinic today regarding his concerns about his glycemic control. CGM readings range from mid 100s-300's. He will be starting Prednisone which will contribute to hyperglycemia. DM meds are managed by PCP and include 4-6 units SS Humalog per meal, 12.5 mg Jardiance, 14 units Lantus at bedtime, Janumet BID. Patient does say that he has been enjoying pastries and breads lately and has had a good appetite. His weight is up 2# in the past three weeks. He does drink Glucerna or Boost Glucose Control but also regular Ensure when he cannot find a diabetic version. Wt Readings from Last 3 Encounters: 05/05/21 59 kg (130 lb) 04/14/21 58.2 kg (128 lb 6.4 oz) 03/24/21 60.2 kg (132 lb 12.8 oz) Intervention: * Encouraged including protein and fat with meals to help stabilize blood glucose and provide satiety. Reviewed examples. * Encouraged seeing PCP for DM medication management, and/or possibly request project manager finance referral. * Encouraged choosing only Glucerna or Boost Glucose Control for ONS and talked about where to find this. Provided samples. Will f/u on 05/26. documented in this encounter Plan of Treatment Upcoming Encounters Date Type Specialty Care Team Description 12/29/2021 Office Visit Hematology and Oncology Castro Leong MD [facility] DR HEMATOLOGY/[place] [address] Maylin Monet APRN [facility] [place] [address] 12/29/2021 Infusion Hematology and Oncology documented as of this encounter Visit Diagnoses Diagnosis Primary malignant neoplasm of left lower lobe of lung Malignant neoplasm of lower lobe, bronch us, or lung documented in this encounter Care Teams Produce Team Member Relationship Specialty Start Date End Date Paxton Segura MD PCP - General Family Medicine 12/03/[address] [place] [address] documented as of this encounter
--- OUTSIDE RECORDS SUMMARY | 2021-12-08 08:47 | XMS_ITS | Encounter Summary ---
:1945 Author Organization [facility] [address] Care Team Providers Name Role Phone Paxton Segura MD Primary Care Provider [phone] Reason for Referral Diagnostic Test (Routine) - Closed Specialty Diagnoses / Procedures Referred By Contact Refer red To Contact Radiology Diagnoses Primary malignant neoplasm of left lower lobe of lung Rizwan Leong MD [facility] Rad Nuclear Med Procedures NM PET CT Skull Base to Mid-thigh [facility] HEMATOLOGY/[place] [address] [place] [address] Referral ID Status Reason Start Date Expiration Date Visits V isits Requested Authorized [id number] Closed Specialty 08/21/2021 11/19/2021 1 1 Service Requested Reason for Visit Diagnostic Test (Routine) - Closed Specialty Diagnoses / Procedures Referred By Contact Refer red To Contact Radiology Diagnoses Primary malignant neoplasm of left lower lobe of lung Rizwan Leong MD [facility] Rad Nuclear Med Procedures NM PET CT Skull Base to Mid-thigh [facility] HEMATOLOGY/[place] [address] [place] [address] Referral ID Status Reason Start Date Expiration Date Visits V isits Requested Authorized [id number] Closed Specialty 08/21/2021 11/19/2021 1 1 Service Requested Encounter Details Date Type Department Care Team Description 09/23/2021 Hospital Encounter Nuclear Medicine at [place], Rizwan Garay, Primary malignant Tahira Reyes MD neoplasm of left [facility] low er lobe of lung [address] [place] H[place]ATOLOGY/ONCOLOG [address] Y DEPT [phone] [place] [address] Social History Tobacco Use Types Packs/Day Years [...] on file documented as of this encounter Medications at Time of Discharge Medication Sig Dispensed Refills Start Date End Date diphenhydrAMINE Take 25 mg by mouth 0 (Benadryl) 25 mg Capsule every 6 hours as needed for Itching. Taking nightly predniSONE (Deltasone) Take 1 tablet by 90 tablet 1 022 10 mg Tablet mouth daily. triamcinolone Apply topically 2 60 g 2 04/14/2021 (ARISTOCORT) 0.5 % Cream times daily. FLUoxetine (PROzac) 20 60 mg. Patient stated 90 tablet 3 mg Tablet taking three tablets daily to equal 60 mg total daily. dorzolamide-timoloL INSTILL ONE DROP INTO 0 03/12 (Cosopt) 22.3-6.8 mg/mL BOTH EYES TWO TIMES A Drops DAY prochlorperazine Take 1 tablet by 30 tablet 3 01/06/2021 (Compazine) 10 mg Tablet mouth every 6 hours as needed for Nausea. insulin lispro (HumaLOG) Inject subcutaneously 0 Insulin Pen 3 times daily (before meals). Sliding scale Jardiance 25 mg Tablet 12.5mg daily 0 10/16/2020 Glucagon 1 mg Recon Soln Inject 0 07/07/2019 subcutaneously. Lantus Solostar U-100 20 Units. Patient 0 021 Insulin pen stating taking 20 units at HS. losartan (Cozaar) 50 mg TAKE 1 TABLET BY 0 2020 Tablet MOUTH DAILY Janumet 50-1,000 mg TAKE 1 TABLET BY 0 09/10/2020 Tablet MOUTH TWICE DAILY valACYclovir (Valtrex) Take by mouth as 0 021 500 mg Tablet needed. As needed latanoprost (XALATAN) 1 drop nightly. 0 0.005 % ophthalmic solution atorvastatin (LIPITOR) 10mg, PO, Once daily 0 08/2006 10 mg tablet predniSONE (Deltasone) Take 10 mg by mouth 0 09/24/2021 10 mg Tablet daily. LORazepam (Ativan) 1 mg TAKE 1/2 TO 1 TABLET 0 09/24/2021 Tablet BY MOUTH THREE TIMES A DAY NEEDED FOR ANXIETY/PANIC sulfamethoxazole-trimeth Take 1 tablet by 15 tablet 1 05/0509/24/2021 oprim DS (Bactrim DS) mouth three times a 800-160 mg Tablet week. naproxen sodium (ALEVE) Take by mouth. 0 09/24/2021 220 mg Capsule acetaminophen (Tylenol) Take 2 tablets by 20 tablet 1 12/1109/24/2021 500 mg Tablet mouth every 6 hours. documented as of this encounter Plan of Treatment Upcoming Encounters Date Type Specialty Care Team Description 12/29/2021 Office Visit Hematology and Oncology Castro Leong MD [facility] DR HEMATOLOGY/[place] [address] Maylin Monet APRN [facility] [place] [address] 12/29/2021 Infusion Hematology and Oncology documented as of this encounter Procedures Procedure Name Priority Date/Time Associated Diagnosis Comme nts NM PET CT SKULL Routine 09/23/2021 2:26 PM Primary malignant R esults for this BASE TO MID-THIGH EDT neoplasm of left proced ure are in ([facility]) lower lobe of lung the resul ts section. documented in this encounter Results NM PET CT Skull [...] who have questions please contact the health medical care evaluation specialist that requested your imaging first. ? Narrative 09/26/2021 9:32 AM EDT EXAMINATION: NM [...] immunotherapy. TECHNIQUE: Following IV injection of 18- zpcrqq-8-ytfyhzlwsfty (FDG) a standard uptake of approximately 60 [...] immunotherapy. TECHNIQUE: Following IV injection of 18- dttexz-2-ywigtuyzljix (FDG) a standard uptake of approximately 60 [...] ho have questions please contact the health medical care evaluation specialist that requested your imaging first. Rizwan Leong MD IMG PET ORDERABLES documented in this encounter Visit Diagnoses Diagnosis Primary malignant neoplasm of left lower lobe of lung Malignant neoplasm of lower lobe, bronch us, or lung documented in this encounter Administered Medications Inactive Administered Medications - up to 3 most recent administrations Medication Order MAR Action Action Date Dose Rate Site fludeoxyglucose (F-18) FDG Given 09/23/2021 1:15 PM 11.7 mCi Right Arm injection 0-20 mCi EDT 0-20 mCi, Intravenous, ONCE PRN, 1 dose, Starting on Wed09/23/21 at 1319, Until Wed09/23/21 at 1315, Per Protocol, Radiology Contrast, Routine documented in this encounter Care Teams Lean [employer] Senior Specialist Relationship Specialty Start Date End Date Paxton Segura MD PCP - General Family Medicine 12/03/[address] [place] [address] documented as of this encounter
--- OUTSIDE RECORDS SUMMARY | 2021-12-08 08:47 | XMS_ITS | Encounter Summary ---
:1945 Author Organization [facility] [place] [address] Care Team Providers Name Role Phone Paxton Segura MD Primary Care Provider [phone] Encounter Details Date Type Department Care Team Description 05/26/2021 Office Visit Hematology/Oncology Taylor Leong MD [facility] DR HEMATOLOGY/[place] [address] Primary malignant neoplasm of left lower lobe of lung[facility] [address] [place] [address] [place] [address] P[address] [place] [phone] Social History Tobacco Use Types Packs/Day Years [...] Sign Reading Time Taken Comments Blood Pressure 130/80 05/26/2021 8:06 AM EST Pulse 75 05/26/2021 8:06 AM EST Temperature 36.6 ??C (97.8 ??F) 05/26/2021 8:06 AM EST Respiratory Rate 18 05/26/2021 8:06 AM EST Oxygen Saturation 99% 05/26/2021 8:06 AM EST Inhaled Oxygen Concentration - - Weight 58.9 kg (129 lb 12.8 oz) 05/26/2021 8:06 AM EST Height 172 cm (5' 7.72) 05/26/2021 8:06 AM EST Body Mass Index 19.9 05/26/2021 8:06 AM EST documented in this encounter Progress Notes Tati Walden, INTERNAL AFFAIRS COMMANDER - 05/26/2021 8:30 AM EST Images from the original note were not included[place] [address] [phone] Chandana Mcwilliams is being seen for the [...] first line carbo/paclitaxel/ipi/nivolumab with overall palliative intent 03/03/21- Continue with ipilimumab and nivolumab. # ? Pneumonitis vs infection on restaging - Immunotherapy is currently on hold. - Abx course and steroid course as detailed in patient instructions below- he is currently taking 20mg of Prednisone a day and will decrease to 10mg a day next week. - PJP proph - Repeat CT scan in 5 weeks- he is scheduled for CT scan on 05/05/21. # Stage IV NSCLC - good response to initial treatment on restaging. Stable disease on 2.9 - As above hold treatment # Rash - likely immune related- improved. # Anxiety- Seems improved with higher dose of prozac. He would like Dr Segura to be the main prescriber and senior technical project manager of his mental health regimen. - [...] scheduled to see Palliative Care this week. Plan: 1. Restaging scan scheduled for 05/05/21. 2. Continue Prednisone 20mg po daily- decrease to 10 mg daily next week. 2. Follow up visit in 2 weeks with CBC,CMP, Mg, TSH, FT4 and immunotherapy infusion. HPI/Interval History/Subjective: Last seen 05/05/2021 Chandana returns today accompanied by his . Overall feeling well today. No fevers, chills or signs of infection. Skin rash has resolved but he is still having intermittent itching. He is taking Prednisone 20mg daily - will taper down to 10mg next week. He has been keeping active outside walking. He has noticed after a certain distance walking he develops weakness in the left leg. He has noticed this for a couple months and it has not changed. If he rests it improves again. Denies any headaches or vision changes. Mood has improved with the longer days. He and his are planning a trip out west to see their children in July. He denies any pain today. No cough or changes in his breathing. No chest pain or edema. No bowel or bladder issues. Mood has been better on 60mg fluoxetine daily. Using the lorazepam 3x a day 0.5mg TID which helps. Continues to be active COVID end of May. Social History/Support Network: Home situation: . Lives in [facility]. 2 children-one in [place] and one in [place]. 3grandkids. 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. Tobacco use: Never smoker. Does have some [...] known history of lung cancer or other cancers/ Oncology Overview: Cancer Staging Primary malignant neoplasm [...] [id number] Treatment Course: 01.16.21 C1 Carbo/Pac/Ipi/Nivo 02.11.21 C1D2 Nivo, carbo, paclitaxel. Restaging with improved disease. 03.03.21 C2 Ipi/Nivo alone ONCBCN ONCOLOGY (AMB) 01/16/2021 02/11/2021 03/03/2021 03/24/2021 04/14/2021 Day, Cycle Day 1, Cycle 1 Day 22, Cycle 1 Day 1, Cycle 2 Day 22, Cycle 2 Day 1, Cycle 3 CARBOplatin (Paraplatin) IV 431 mg 394 mg - - - ipilimumab (Yervoy) IV 1 mg/kg/dose = 60 mg - 1 mg/kg/dose = 60 mg - 1 mg/kg/dose = 60 mg nivolumab (Opdivo) IV 360 mg 360 mg 360 mg 360 mg 360 mg PACLitaxeL (Taxol) IV 200 mg/m2/dose = 336 mg 200 mg/m2/dose = 336 mg - - - No Known Allergies Medications 05/05/21911 Medication Sig Taking? LORazepam (Ativan) 1 mg Tablet TAKE 1/2 TO 1 TABLET BY MOUTH THREE TIMES A DAY NEEDED FOR ANXIETY/PANIC sulfamethoxazole-trimethoprim DS (Bactrim DS) 800-160 mg Tablet Take 1 tablet by mouth three times aweek. predniSONE (Deltasone) 10 mg Tablet Take 6 tablets by mouth daily for 7 days, THEN 4 tablets daily for 7 days, THEN 3 tablets daily for 7 days, THEN 2 tablets daily for 7 days, THEN 1 tablet daily for 7 days. triamcinolone (ARISTOCORT) 0.5 % Cream Apply topically 2 times daily. FLUoxetine (PROzac) 20 mg Tablet 60 mg. [...] mouth every 6 hours. Patient not taking: Reported on 05/05/2021 insulin lispro (HumaLOG) Insulin Pen Inject subcutaneously 3 times daily (before meals). Sliding scale Jardiance 25 mg Tablet 12.5mg daily Glucagon 1 mg Recon Soln Inject subcutaneously. Lantus Solostar U-100 Insulin pen INJECT 12 UNITS SUBCUTANEOUSLY AT BEDTIME losartan (Cozaar) 50 mg Tablet TAKE 1 TABLET BY MOUTH DAILY Janumet 50-1,000 mg Tablet TAKE 1 TABLET BY MOUTH TWICE DAILY valACYclovir (Valtrex) 500 mg Tablet Take by mouth as needed. As needed timolol (TIMOPTIC) 0.25 % ophthalmic solution 1 drop 2 times daily. latanoprost (XALATAN) 0.005 % ophthalmic solution [...] Exam: Wt Readings from Last 3 Encounters: 05/05/21 59 kg (130 lb) 04/14/21 58.2 kg (128 lb 6.4 oz) 03/24/21 60.2 kg (132 lb 12.8 oz) Temp Readings from Last 3 Encounters: 05/05/21 36.4 ??C (97.5 ??F) (Temporal) 04/14/21 36.2 ??C (97.1 ??F) (Temporal) 03/24/21 36.4 ??C (97.5 ??F) (Temporal) BP Readings from Last 3 Encounters: 05/05/21 134/80 04/14/21 136/73 03/24/21 139/76 Pulse Readings from Last 3 Encounters: 05/05/21 77 04/14/21 68 03/24/21 73 There is no height or weight on file to calculate BSA. Wt Readings from Last 3 Encounters: 05/05/21 59 kg (130 lb) 04/14/21 58.2 kg (128 lb 6.4 oz) 03/24/21 60.2 kg (132 lb 12.8 oz) KPS [...] or chair ECOG 1 Physical Exam BP 130/80 (Patient Position: Sitting) Pulse 75 Temp 36.6 ??C (97.8 ??F) (Temporal) Resp 18 Ht 172 cm (5' 7.72) Wt 58.9 kg (129 lb 12.8 oz) SpO2 99% BMI 19.90 kg/m?? Physical Exam Constitutional: General: Not in acute distress. Appearance: Normal appearance. Thin. Not ill-appearing, toxic-appearing or diaphoretic. HENT: Head: Atraumatic. Eyes: General: No scleral icterus. Right eye: No discharge. Left eye: No discharge. Conjunctiva/sclera: Conjunctivae normal. Pulmonary: Effort: Pulmonary effort is normal. No wheezes or rales. Neurological: General: No focal deficit present. Mental Status: Alert and oriented to person, place, and time. Mental status is at baseline. Psychiatric: Mood and Affect: Mood normal. Behavior: Behavior normal. Thought Content: Thought content normal. Judgment: Judgment normal. Skin: No rash or lesions Review of Laboratory Data: 05/26/21- WBC-10.29 Hgb/Hct-15.2/46.7 Plt-180 ANC-6.74 Na-139 K+-4.1 [...] 0.88 though down from 0.96 the prior .. White blood cell count 8.93 hemoglobin 13.9 [...] free T4 1.09 Review of Imaging Data: 2.9.21 CT Chest (I reviewed the imaging personally which shows stable disease though some ? Changes concerning for iinfection or pneumonitis.) 12.8.21 CT Review of Pathology Data: documented in this encounter Plan of Treatment Upcoming Encounters Date Type Specialty Care Team Description 12/29/2021 Office Visit Hematology and Oncology Castro Leong MD [facility] DR HEMATOLOGY/[place] [address] Maylin Monet APRN [facility] HEMATOLOGY [place] [address] 12/29/2021 Infusion Hematology and Oncology documented as of this encounter Visit Diagnoses Diagnosis Primary malignant neoplasm of left lower lobe of lung Malignant neoplasm of lower lobe, bronch us, or lung Pneumonitis Pneumonia, organism unspecified documented in this encounter Care Teams Telephone Quotation Clerk Relationship Specialty Start Date End Date Paxton Segura MD PCP - General Family Medicine 12/03/[address] [place] [address] documented as of this encounter
--- OUTSIDE RECORDS SUMMARY | 2021-12-08 08:47 | XMS_ITS | Encounter Summary ---
:1945 Author Organization [facility] [place] [address] Care Team Providers Name Role Phone Paxton Segura MD Primary Care Provider [phone] Reason for Visit Reason Comments Chemotherapy [id number] Nivolumab Treatment/Therapy Plan Authorization (Routine) - Authorized Specialty Diagnoses / Procedures Referred By Contact Refer red To Contact Hematology and Diagnoses Primary malignant neoplasm of left lower lobe of lung Malignant pleural effusion Medication management Rizwan Leong MD [facility] Hem Onc Infusion Oncology Procedures [id number] HEMATOLOGY/ONCOLOGY [place], [place] DEPT [phone] [place] [address] Referral ID Status Reason Start Date Expiration Date Visits V isits Requested Authorized [id number] Authorized 08/11/2021 08/11/2022 99 99 Encounter Details Date Type Department Care Team Description 06/09/2021 Infusion Hematology Oncology at [facility]; [facility] Primary malignant neoplasm o f left lower lobe of lung; [address] [place] [address] Malignant pleural effusion [place], [place] [phone] Social History Tobacco Use [...] encounter Progress Notes Kimi Gomez RN - 06/09/2021 2:30 PM EDT INFUSION THERAPY ADMINISTRATION NOTES DIAGNOSIS: NSCLC CYCLE #: 3 REASON FOR VISIT: Nivolumab Infusion SUBJECTIVE Mr. Mcwilliams is here for C Nivolumab infusion. He was seen by provider prior to infusion today. He has no questions/concerns and is ready for treatment today. OBJECTIVE LAB DATA: Labs drawn today at [facility]. Reviewed and found adequate for treatment today. [...] Visit Hematology and Oncology Castro Leong MD [facility] DR HEMATOLOGY/[place] [address] Maylin Monet APRN [facility] DR HEMATOLOGY [place] [address] 12/29/2021 Infusion Hematology and Oncology documented as [...] nivolumab (Opdivo) 360 mg in New Bag 06/09/2021 3:38 PM EDT 360 mg 272 mL/hr sodium chloride 0.9% 136 mL infusion 360 mg, Intravenous, ONCE, 1 dose, On Wed06/09/21 at 1615, Administer over 30 Minutes, Flush line with NS after each dose, This agent is restricted to outpatient use. Is this drug being given as an outpatient? Yes documented in this encounter Care Teams Weather Algorithm Scientist Relationship Specialty Start Date End Date Paxton Segura MD PCP - General Family Medicine 12/03/20 [facility] [address] [place] [address] documented as of this encounter
--- OUTSIDE RECORDS SUMMARY | 2021-12-08 08:47 | XMS_ITS | Encounter Summary ---
:1945 Author Organization [facility] [place] [address] Care Team Providers Name Role Phone Paxton Segura MD Primary Care Provider [phone] Reason for Visit Reason Comments Chemotherapy Cycle 6, Day 22; Nivolumab Treatment/Therapy Plan Authorization (Routine) - Authorized Specialty Diagnoses / Procedures Referred By Contact Refer red To Contact Hematology and Diagnoses Primary malignant neoplasm of left lower lobe of lung Malignant pleural effusion Medication management Rizwan Leong MD [facility] Hem Onc Infusion Oncology Procedures [id number] [address] HEMATOLOGY/ONCOLOGY [place], [place] DEPT [address] [place] [address] Referral ID Status Reason Start Date Expiration Date Visits V isits Requested Authorized [id number] Authorized 08/11/2021 08/11/2022 99 99 Encounter Details Date Type Department Care Team Description 11/17/2021 Infusion Hematology Oncology at [facility]; [facility] Primary malignant neoplasm o f left lower lobe of lung; [address] [place] [address] Malignant pleural effusion [place], [place] [phone] Social History Tobacco Use [...] encounter Progress Notes Jermain Prasad RN - 11/17/2021 10:00 AM EDT INFUSION THERAPY ADMINISTRATION NOTES DIAGNOSIS: NSCLC CYCLE #: Cycle 6, Day 22 - Nivolumab REASON FOR VISIT: To receive chemotherapy. SUBJECTIVE: Chandana offers no complaints. OBJECTIVE: VSS. Weight stable. Seen by provider. Ready to treat. LAB DATA: WBC - 7.24, Hg - 15.3, Plt Ct - 197, ANC - 4.27, BUN/Cr - 28/1.1, TSH/Free T4 - 4.59/0.87. IV ACCESS: PIV Pre administration: Chemotherapy orders independently verified for drug name, route, and dosage per patient's height, weight and BSA by JERMAIN PRASAD, TAMMY and Staff Pharmacist(s). REACTIONS (DESCRIPTION, TIME, INTERVENTION AND EFFECTIVENESS) none ASSESSMENT: Chandana was awake, alert and tolerated treatment well. PIV discontinued prior to dismissal. PLAN: Return to clinic per routine. documented in this encounter Plan of Treatment Upcoming Encounters Date Type Specialty Care Team Description 12/29/2021 Office Visit Hematology and Oncology Castro Leong MD [facility] DR HEMATOLOGY/[place] [address] Maylin Monet APRN [facility] [place] [address] 12/29/2021 Infusion Hematology and Oncology documented as [...] nivolumab (Opdivo) 360 mg in New Bag 11/17/2021 11:13 AM EDT 360 m g 272 mL/hr sodium chloride 0.9% 136 mL infusion 360 mg, Intravenous, ONCE, 1 dose, On Wed11/17/21 at 1145, Administer over 30 Minutes, Flush line with NS after each dose, This agent is restricted to outpatient use. Is this drug being given as an outpatient? Yes documented in this encounter Care Teams Winch Truck Operator Relationship Specialty Start Date End Date Paxton Segura MD PCP - General Family Medicine 12/03/[address] [place] [address] [address] [place] [address] documented as of this encounter
--- OUTSIDE RECORDS SUMMARY | 2021-12-08 08:47 | XMS_ITS | Encounter Summary ---
:1945 Author Organization [facility] [place] [address] Care Team Providers Name Role Phone Paxton Segura MD Primary Care Provider [phone] Encounter Details Date Type Department Care Team Description 11/17/2021 Office Visit Hematology/Oncology Taylor Leong MD [facility] DR HEMATOLOGY/[place] [address] Primary malignant at [facility] Maylin Monet APRN [facility] [place] [address] neoplasm of left [address] [place] [address] Drive [place] [phone] Social History Tobacco Use Types Packs/Day Years [...] Mass Index 21.32 11/17/2021 9:30 AM EDT documented in this encounter Progress Notes Rizwan Leong MD - 11/17/2021 9:30 AM EDT Images from the original note were not included. [place] [address] [phone] Chandana Mcwilliams is being seen for the evaluation of lung cancer. Assessment & Plan: Chandana Mcwilliams is a 76 y.o. male patient with a past medical history significant for HTN, CAD, DM2 withminimal firsthand smoking exposure found to have a malignant pleural effusion with multiple pleural desposits s/p talc pelurodesis. Histology identified squamous cell carcinoma. PD-L1 0%. NGS did not identify actionable variants. 01/16/21- first line carbo/paclitaxel/ipi/nivolumab with overall palliative intent # NSCLC - PET scan from September showed excellent response. Clinically doing quite well. - Nivolumab today - Labs and toxicities assessed and acceptable for ongoing treatment. - RTC in 3 weeks for standalone infusion and the labs, appt infusion in 6 weeks- restage after that # Rash/Pruritus - likely immune related- improved. Primarily on back and upper chest - Chandana believes it is improving. - Continue Prednisone and topicals (has triamcinolone cream at home) - he has not been using topicals suggested he resume in effort to taper Prednisone he is on 10/7.5mg - Go to 7.5mg daily starting next week # Anxiety- Seems improved. He's stopped the lorazepam and is on prozac 20mg at this point and feels good. He would like Dr Segura to be the main prescriber and tire care manager of his mental health regimen. - [...] typical survival would be in the range of 18-24 month 09.24.21 discussed prognosis in context of excellent response on PET :while its hard to prognosticateand perhas premature we did discuss that we occasionally seem durable responses (sometimes on the order of years) with immunotherapy. - No AD on file-will address at future visit. He is scheduled to see SABA Leong MD, MS 11/17/2021 Medical Oncology & Hematology [facility] HPI/Interval History/Subjective: Last seen 10/20/2021 I feel great. Breathing great - able to walk up hills. Rash is still there an itchy but a little Prednisone 7.5mg/10mg alternating and this Eating ok. Appetite is good. Weight stable. Now on Prozac 40mg - Mood has been good Bowels have been good. No diarrhea - GI track working better than ever Some chronic hoarseness that is improving Some mild congestion in the past week that has broen up No diarrhea. 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 Social History/Support Network: Home situation: . Lives in [facility]. 2 children-one in [place] and one in [place]. 3grandkids. 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 Tobacco use: Never smoker. Does have some second smoke exposure. Alcohol use: 7 drinks of wine per week. Notes that he had Tendency to more heavy drinking in the past Drug use: Marijuana smoking in college. Now maybe 1-2x per month Financial Distress: [...] improved disease. 03.03.21 C2 Ipi/Nivo alone 04.14.21 C3. Pause for question pneumonitis though utlimately did not behave in manner consistent 06.09.21 Resumed nivolumab alone and ongoing 09.24.21 Excellent response on restaging PET scan ONCBCN ONCOLOGY (AMB) 04/14/2021 06/09/2021 06/30/2021 08/11/2021 09/01/2021 09/24/2021 10/20/2021 Day, Cycle Day 1, Cycle 3 Day 22, Cycle 3 Day 1, Cycle 4 Day 22, Cycle 4 Day 1, Cycle 5 Day 22, Cycle 5 Day 1, Cycle 6 CARBOplatin (Paraplatin) IV - - - - - - - ipilimumab (Yervoy) IV 1 mg/kg/dose = 60 mg - - - - - - nivolumab (Opdivo) IV 360 mg 360 mg 360 mg 360 mg 360 mg 360 mg 360 mg PACLitaxeL (Taxol) IV - - - - - - - No Known Allergies Medications 11/17/21 1003 Medication Sig Taking? diphenhydrAMINE (Benadryl) 25 mg Capsule Take 25 mg by mouth every 6 hours as needed for Itching. Taking nightly Yes predniSONE (Deltasone) 10 mg Tablet Take 1 tablet by mouth daily. Patient taking differently: Take 10 mg by mouth every other day. Yes triamcinolone (ARISTOCORT) 0.5 % Cream Apply topically 2 times daily. Yes FLUoxetine (PROzac) 20 mg Tablet 60 mg. Patient stated taking three tablets daily to equal 60 mg total daily. Patient taking differently: 20 mg. 40 mg. Patient stated taking two tablets daily. Yes dorzolamide-timoloL (Cosopt) 22.3-6.8 mg/mL Drops INSTILL ONE DROP INTO BOTH EYES TWO TIMES A DAY Yes insulin lispro (HumaLOG) Insulin Pen Inject subcutaneously 3 times daily (before meals). Sliding scale Yes Jardiance 25 mg Tablet 12.5mg daily Yes Glucagon 1 mg Recon Soln Inject subcutaneously. Yes Lantus Solostar U-100 Insulin pen 20 Units. Patient stating taking 20 units at HS. Yes losartan (Cozaar) 50 mg Tablet TAKE 1 TABLET BY MOUTH DAILY Yes Janumet 50-1,000 mg Tablet TAKE 1 TABLET BY MOUTH TWICE DAILY Yes valACYclovir (Valtrex) 500 mg Tablet Take by mouth as needed. As needed Yes latanoprost (XALATAN) 0.005 % ophthalmic solution 1 drop nightly. Yes atorvastatin (LIPITOR) 10 mg tablet 10mg, PO, Once daily Yes prochlorperazine (Compazine) 10 mg Tablet Take 1 tablet by mouth every 6 hours as needed for Nausea. Patient not taking: No sig reported I reviewed the problem list, allergies, medications, past medical history, social history and familyhistory within the EPIC encounter. Pertinent details are noted above. Pertinent positives and negative from the Review of Systems are as summarized above in the HPI. Physical Exam: Wt Readings from Last 3 Encounters: 11/17/21 63.6 kg (140 lb 3.2 oz) 10/20/21 62.1 kg (137 lb) 09/24/21 62.8 kg (138 lb 6.4 oz) Temp Readings from Last 3 Encounters: 11/17/21 36.5 ??C (97.7 ??F) (Temporal) 10/20/21 36.8 ??C (98.2 ??F) (Temporal) 09/24/21 36.5 ??C (97.7 ??F) (Temporal) BP Readings from Last 3 Encounters: 11/17/21 117/76 10/20/21 99/62 09/24/21 135/72 Pulse Readings from Last 3 Encounters: 11/17/21 70 10/20/21 76 09/24/21 73 Body surface area is 1.75 meters squared. Wt Readings from Last 3 Encounters: 11/17/21 63.6 kg (140 lb 3.2 oz) 10/20/21 62.1 kg (137 lb) 09/24/21 62.8 kg (138 lb 6.4 oz) KPS Score ECOG Grade Definition 90-100 [...] selfcare; totally confined to bed or chair Physical Exam BP 117/76 (Patient Position: Sitting) Pulse 70 Temp 36.5 ??C (97.7 ??F) (Temporal) Resp 18 Ht 172.7 cm (5' 7.99) Wt 63.6 kg (140 lb 3.2 oz) SpO2 99% BMI 21.32 kg/m?? GENERAL: Thin appearing male in no acute distress HEENT: Eyes: b/l PERRL, no conjunctival pallor , no scleral icterus; Sinuses: non-tender; Oropharynx: moist, clear, No lesions, No thrush NECK: supple without cervical adenopathy CARDIOVASCULAR: Heart with regular rate and rhythm without S3,S4 or murmurs. No cyanosis or peripheral edema. PULMONARY: Lungs are clear to auscultation without rales, rhonchi or wheezing ABDOMEN: Abdomen soft and non-tender. BS normoactive MUSCULOSKELETAL: Moves and ambulates independently. No spinal or CVA tenderness to palpation. EXTREMITIES: No edema or calf tenderness SKIN: No rashes, bruises or petechiae. NEURO: Alert and oriented to person, place, time. Speech clear and conversation appropriate to situation. No focal deficits. Review of Laboratory Data: 11.17.21 White blood cell count 7.24 hemoglobin 15.3 platelet count 296,000 absolute neutrophil count 4.27 Sodium 140 potassium 4.0 chloride 103 BUN 28 creatinine 1.1 down from 1.4 glucose 188 calcium 9.1 total bilirubin 0.6 AST 13 ALT 23 alk phos 47 albumin 3.6 TSH slightly elevated at 4.59 but free T4 within normal limits at 0.87 10/20/21 WBC 11.99, Hgb 15.3, Plt Ct 217, ANC 9.86 Na 131, K+ 4.5, BUN 38, Creat 1.4, Glucose 363, Calcium 9.3, Mag 2.0, total bili 0.4, AST 15, ALT 29, Alk Phos 43, total Prot 7.1, albumin 3.8, TSH 2.67, Free T4 0.90 7.6.22 6.13.22 White blood cell count 7.06 hemoglobin 14.5 platelet count 184,000 absolute neutrophil count 4.25 Sodium 139 potassium 4.3 chloride 103 BUN 24 creatinine 1.2 which is stable glucose 245 down from 355 calcium 9.0 magnesium 2.0 total bilirubin 0.6 AST 18 ALT 30 alk phos 43 albumin 3.5 TSH slightly elevated at 3.83 from 3.80 from 3.74 Free T4 within normal limits at 0.89 08/11/21 WBC 8.91, Hgb 14.8, MCV 95, Plt ct 214, ANC 6.01 Na 135, K+ 4.4, BUN 31, Creat 1.2, Glucose 355, Calcium 9.1, Mag 2.0, Total bili 0.7, AST, 10, ALT 21, Alk Phos 49, Albumin 3.7, Total prot 6.6, TSH 3,80, Free T4 0.96 3.. White blood cell count 8.79 hemoglobin 15.1 [...] 0.88 though down from 0.96 the prior 02.10. White blood cell count 8.93 hemoglobin 13.9 [...] free T4 1.09 Review of Imaging Data: 7.5.[address] Chest 2.9. CT Chest 12.. CT Review of Pathology Data: documented in this encounter Plan of Treatment Upcoming Encounters Date Type Specialty Care Team Description 12/29/2021 Office Visit Hematology and Oncology Castro Leong MD [facility] DR HEMATOLOGY/[place] [address] Maylin Monet APRN [facility] [place] [address] 12/29/2021 Infusion Hematology and Oncology documented as of this encounter Visit Diagnoses Diagnosis Primary malignant neoplasm of left lower lobe of lung Malignant neoplasm of lower lobe, bronch us, or lung documented in this encounter Care Teams Liquid Hydrogen Plant Operator Relationship Specialty Start Date End Date Paxton Segura MD PCP - General Family Medicine 12/03/20 [address] [place] [address] documented as of this encounter
--- OUTSIDE RECORDS SUMMARY | 2021-12-08 08:47 | XMS_ITS | Encounter Summary ---
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 Malignant pleural effusion Medication management Rizwan Leong MD [facility] Hem Onc Infusion Oncology Procedures [id number] HEMATOLOGY/ONCOLOGY [place], [place] DEPT [address] [place] [address] Referral ID Status Reason Start Date Expiration Date Visits V isits Requested Authorized [id number] Authorized 08/11/2021 08/11/2022 99 99 Encounter Details Date Type Department Care Team Description 10/20/2021 Infusion Hematology Oncology at [facility]; [facility] Primary malignant neoplasm o f left lower lobe of lung; [address] [place] [address] Malignant pleural effusion [place], [place] [phone] Social History Tobacco Use [...] encounter Progress Notes Va Gray RN - 10/20/2021 2:30 PM EDT INFUSION THERAPY ADMINISTRATION NOTES DIAGNOSIS: NSCLC CYCLE #: Cycle 6, Day 1 - Nivolumab REASON FOR VISIT: To receive chemotherapy. SUBJECTIVE: Chnadana offers no complaints. OBJECTIVE: VSS. Weight stable. Seen by provider. Ready to treat. LAB DATA: WBC - 11.99, H/H - 15.3/45.8, Plt Ct - 217, ANC - 9.86, Lytes with NA+ - 131, other valueswnl, BUN/Cr - 38/1.4, TSH/Free T4 - 2.67/0.90. IV ACCESS: PIV Pre administration: Chemotherapy orders [...] MD [facility] DR HEMATOLOGY/[place] [address] Maylin Monet APRN [facility] HEMATOLOGY [place] [address] 12/29/2021 Infusion Hematology and Oncology documented as [...] nivolumab (Opdivo) 360 mg in New Bag 10/20/2021 3:25 PM EDT 360 mg 272 mL/hr sodium chloride 0.9% 136 mL infusion 360 mg, Intravenous, ONCE, 1 dose, On 10/20/21 at 1615, Administer over 30 Minutes, Flush line with NS after each dose, This agent is restricted to outpatient use. Is this drug being given as an outpatient? Yes documented in this encounter Care Teams Meat Molder Relationship Specialty Start Date End Date Paxton Segura MD PCP - General Family Medicine 12/03/[address] [place] [address] documented as of this encounter
--- OUTSIDE RECORDS SUMMARY | 2021-12-08 08:47 | XMS_ITS | Encounter Summary ---
:1945 Author Organization [facility] [place] [address] Care Team Providers Name Role Phone Paxton Segura MD Primary Care Provider [phone] Reason for Visit Reason Comments Chemotherapy Cycle 5, Day 22; Nivolumab Treatment/Therapy Plan Authorization (Routine) - Authorized Specialty Diagnoses / Procedures Referred By Contact Refer red To Contact Hematology and Diagnoses Primary malignant neoplasm of left lower lobe of lung Malignant pleural effusion Medication management Rizwan Leong MD [facility] Hem Onc Infusion Oncology Procedures [id number] [address] HEMATOLOGY/ONCOLOGY [place], [place]PT [address] [place] [address] Referral ID Status Reason Start Date Expiration Date Visits V isits Requested Authorized [id number] Authorized 08/11/2021 08/11/2022 99 99 Encounter Details Date Type Department Care Team Description 09/24/2021 Infusion Hematology On[facility] at [facility]; [facility] Primary malignant neoplasm o f left lower lobe of lung; [address] [place] [address] Malignant pleural effusion [place], [place] [phone] Social History Tobacco Use [...] Sign Reading Time Taken Comments Blood Pressure 135/72 09/24/2021 8:22 AM EDT Pulse 73 09/24/2021 8:22 AM EDT Temperature 36.5 ??C (97.7 ??F) 09/24/2021 8:22 AM EDT Respiratory Rate 16 09/24/2021 8:22 AM EDT Oxygen Saturation 100% 09/24/2021 8:22 AM EDT Inhaled Oxygen Concentration - - Weight 62.8 kg (138 lb 6.4 oz) 09/24/2021 8:22 AM EDT Height 172.7 cm (5' 7.99) 09/24/2021 8:22 AM EDT Body Mass Index 21.05 09/24/2021 8:22 AM EDT documented in this encounter Progress Notes Jermain Prasad RN - 09/24/2021 8:00 AM EDT INFUSION THERAPY ADMINISTRATION NOTES DIAGNOSIS: NSCLC CYCLE #: REASON FOR VISIT: Nivolumab Infusion SUBJECTIVE Mr. Mcwilliams is here for Nivolumab infusion. He has no questions/concerns and is ready for treatment today. OBJECTIVE LAB DATA: Labs drawn today at [facility]. Reviewed and found adequate for treatment today. Pre administration: Chemotherapy orders independently verified for drug name, route, and dosage per patient's height, weight and BSA by JERMAIN PRASAD RN and pharmacist on-site. REACTIONS (DESCRIPTION, TIME, INTERVENTION AND EFFECTIVENESS) none ASSESSMENT Mr. Mcwilliams was awake, alert and tolerated treatment well. PLAN Return to clinic per plan. Patient was reminded to call in the interim with any questions/concerns. Will have video visit with Dr. Leong later this morning to review PET scan. documented in this encounter Plan of Treatment Upcoming Encounters Date Type Specialty Care Team Description 12/29/2021 Office Visit Hematology and Oncology Castro Leong MD [facility] HEMATOLOGY/[place] [address] Maylin Monet APRN [facility] [place] [address] 12/29/2021 Infusion Hematology and Oncology documented as [...] nivolumab (Opdivo) 360 mg in New Bag 09/24/2021 9:01 AM EDT 360 mg 272 mL/hr sodium chloride 0.9% 136 mL infusion 360 mg, Intravenous, ONCE, 1 dose, On Wed09/24/21 at 0930, Administer over 30 Minutes, Flush line with NS after each dose, This agent is restricted to outpatient use. Is this drug being given as an outpatient? Yes sodium chloride 0.9 % (flush) (BD PosiFlush Given 09/24/2021 9:34 AM EDT 20 mLs Normal Saline 0.9) flush 5-20 mL 5-20 mL, Intravenous, EVERY 1 MIN PRN, Starting on Wed09/24/21 at 0813, Until Wed09/24/21 at 1029, Line Care, Flush pertains to all indwelling lines. Flush per protocol found in the job aid using the link provided on this medication record. Refer to Intravenous (IV) Job Aid: Adult Flushing & Catheter Care (8261) job aid for additional information regarding guidelines and administration., Routine documented in this encounter Care Teams Qa Tech Relationship Specialty Start Date End Date Paxton Segura MD PCP - General Family Medicine 12/03/[address] [place] [address] documented as of this encounter
--- OUTSIDE RECORDS SUMMARY | 2021-12-08 08:47 | XMS_ITS | Encounter Summary ---
:1945 Author Organization [facility] [place] [address] Care Team Providers Name Role Phone Paxton Segura MD Primary Care Provider [phone] Reason for Visit Reason Onset Date Comments Follow-up 06/16/2021 Encounter Details Date Type Department Care Team Description 06/16/2021 Telephone Hematology Oncology at GarciaLiana RN Follow-up [address] [phone] Social History Tobacco Use [...] Telephone Encounter - Liana Garcia RN - 06/16/2021 10:01 AM EDT Spoke to Chandana this morning regarding his rash. He is still itching quite a bit at night. Using gold butt but not as much as he should. Not using benadryl for itching at night. Itching is ok during the day because hes about to forget about it. He gets bumps once in a while, on legs. He has had loose bowels for 3 days now. He attributes this to a hx of irritable bowel. Went out to dinner Wednesday night and diarrhea started after that. His blood sugars have been all over the place. Low last night and has been in to 300-400 range during the day. He is eating fine. Could drink more water. Overall feeling pretty good and doesn't have immediate concerns. Reviewed with Dr. Leong and he suggested try benadryl for itching at night. Use more topical creams, continue prednisone. Monitor stools. Chandana agrees with all of the above. Has no other questions or concern and knows to call if he needs us. ----- Message from Liana Garcia RN sent at 06/09/2021 3:22 PM EDT ----- Regarding: call pt Liana, please call Chandana next week on 06.16 to see how his rash is doing on the prednisone 10mg documented in this encounter Plan of Treatment Upcoming Encounters Date Type Specialty Care Team Description 12/29/2021 Office Visit Hematology and Oncology Castro Leong MD [facility] DR HEMATOLOGY/[place] [address] Maylin Monet APRN [facility] [place] [address] 12/29/2021 Infusion Hematology and Oncology documented as of this encounter Visit Diagnoses Not on filedocumented in this encounter Care Teams Manager Channel Relationship Specialty Start Date End Date Paxton Segura MD PCP - General Family Medicine 12/03/[address] [place] [address] documented as of this encounter
--- OUTSIDE RECORDS SUMMARY | 2021-12-08 08:47 | XMS_ITS | Encounter Summary ---
:1945 Author Organization [facility] [place] [address] Care Team Providers Name Role Phone Paxton Segura MD Primary Care Provider Encounter Details Date Type Department Care Team Description 04/14/2021 Notes Only Hematology/Oncology at [facility] OFFICE OF CARE [address] [place] [phone] Social History Tobacco Use Types Packs/Day Years [...] documented as of this encounter Progress Notes Delia Stewart MSW - 04/14/2021 9:55 AM EST Follow up with pt during his infusion visit today. Pt indicated he is doing fairly well day to day with the support of his . He finds the shorter days and sub zero weather challenging for him. He feels his medications are helping with his depression and anxiety. He is trying to get into activitiesthat he has enjoyed - walking and reading. His daughter will be coming for a short visit and he is looking forward to this. He feels his is coping as best as she can also. Offered support. Reminded pt of GLASS CUTTING MACHINE FEEDER availability and contact information. Will follow for support and resources. Brief assessment Supportive Counseling documented in this encounter Plan of Treatment Upcoming Encounters Date Type Specialty Care Team Description 12/29/2021 Office Visit Hematology and Oncology Castro Leong MD [facility] DR HEMATOLOGY/[place] [address] Maylin Monet APRN [facility] DR HEMATOLOGY [place] [address] 12/29/2021 Infusion Hematology and Oncology documented as of this encounter Visit Diagnoses Not on filedocumented in this encounter Care Teams Continuous Vulcanizing Machine Operator Relationship Specialty Start Date End Date Paxton Segura MD PCP - General Family Medicine 12/03/[address] [place] [address] documented as of this encounter
--- OUTSIDE RECORDS SUMMARY | 2021-12-08 08:47 | XMS_ITS | Encounter Summary ---
:1945 Author Organization [facility] [place] [address] Care Team Providers Name Role Phone Paxton Segura MD Primary Care Provider [phone] Encounter Details Date Type Department Care Team Description 08/11/2021 Notes Only Hematology/Oncology at [facility] OFFICE OF CARE [address] [place] [phone] Social History Tobacco Use Types Packs/Day Years [...] encounter Progress Notes Delia Stewart MSW - 08/11/2021 11:31 AM EDT Follow up with pt during his infusion visit today. He indicated he is doing well. The prediction that he will have a good summer is looking good. He enjoyed his recent cross country road trip to [place] trip to see his daughter/family and son/family. He is looking forward to his daughter and granddaughter visiting for several weeks this summer. He also has some travel and activities planned for the summer. He continues to get his affairs in order. He is going to start researching a green burial. Pt did not identify any new needs today. Offered support. Reminded pt of CLINICAL PROJECT MANAGER availability and contact information. Will continue to follow as indicated. Brief assessment Supportive Counseling documented in this encounter Plan of Treatment Upcoming Encounters Date Type Specialty Care Team Description 12/29/2021 Office Visit Hematology and Oncology Castro Leong MD [facility] DR HEMATOLOGY/[place] [address] Maylin Monet APRN [facility] [address] HEMATOLOGY [place] [address] 12/29/2021 Infusion Hematology and Oncology documented as of this encounter Visit Diagnoses Not on filedocumented in this encounter Care Teams Older Adult Social Work Specialist Relationship Specialty Start Date End Date Paxton Segura MD PCP - General Family Medicine 12/03/[address] [place] [address] documented as of this encounter
--- OUTSIDE RECORDS SUMMARY | 2021-12-08 08:47 | XMS_ITS | Encounter Summary ---
:1945 Author Organization [facility] [place] [address] Care Team Providers Name Role Phone Paxton Segura MD Primary Care Provider [phone] Reason for Visit Diagnostic Test (Routine) - Closed Specialty Diagnoses / Procedures Referred By Contact Refer red To Contact Radiology Diagnoses Primary malignant neoplasm of left lower lobe of lung Maylin Monet APRN [facility] Rad Nuclear Med Procedures NM [place] PET CT Skull Base to Mid-thigh [facility] [place] [address] [place] [address] Referral ID Status Reason Start Date Expiration Date Visits V isits Requested Authorized [id number] Closed Specialty 08/21/2021 11/19/2021 1 1 Service Requested Encounter Details Date Type Department Care Team Description 09/05/2021 Hospital Encounter Nuclear Medicine at Maylin Monet Canceled (P-PUBLIC Tahira Turner APRN HE[facility]) [facility] [address] [place] HEMATOLOGY AND [id number] ONCOLOGY [phone] [place] [address] Social History Tobacco Use Types Packs/Day Years [...] Hematology and Oncology Castro Leong MD [facility] DR HEMATOLOGY/[place] [address] Maylin Monet APRN [facility] DR [place]EMATOLOGY [place] [address] 12/29/2021 Infusion Hematology and Oncology documented as of this encounter Visit Diagnoses Not on filedocumented in this encounter Care Teams Staff Electrical Engineer Relationship Specialty Start Date End Date Paxton Segura MD PCP - General Family Medicine 12/03/[address] [place] [address] [address] [place] [address] documented as of this encounter
--- OUTSIDE RECORDS SUMMARY | 2021-12-08 08:47 | XMS_ITS | Encounter Summary ---
:1945 Author Organization [facility] [place] [address] Care Team Providers Name Role Phone Paxton Segura MD Primary Care Provider [phone] Reason for Visit Reason Comments Chemotherapy Cycle 4, Day 1; Nivolumab Treatment/Therapy Plan Authorization (Routine) - Authorized Specialty Diagnoses / Procedures Referred By Contact Refer red To Contact Hematology and Diagnoses Primary malignant neoplasm of left lower lobe of lung Malignant pleural effusion Medication management Rizwan Leong MD [facility] Hem Onc Infusion Oncology Procedures [id number] HEMATOLOGY/ONCOLOGY [place], [place] DEPT [address] [place] [address] Referral ID Status Reason Start Date Expiration Date Visits V isits Requested Authorized [id number] Authorized 08/11/2021 08/11/2022 99 99 Encounter Details Date Type Department Care Team Description 06/30/2021 Infusion Hematology Oncology at [facility] [employer] management; [facility] Primary malignant neoplasm o f left lower lobe of lung; [address] [place] [address] Malignant pleural effusion [place], [place] [phone] Social History Tobacco Use [...] Sign Reading Time Taken Comments Blood Pressure 143/79 06/30/2021 8:37 AM EDT Pulse 77 06/30/2021 8:37 AM EDT Temperature 36.1 ??C (96.9 ??F) 06/30/2021 8:37 AM EDT Respiratory Rate 16 06/30/2021 8:37 AM EDT Oxygen Saturation 100% 06/30/2021 8:37 AM EDT Inhaled Oxygen Concentration - - Weight 60.3 kg (133 lb) 06/30/2021 8:37 AM EDT Height 172.7 cm (5' 7.99) 06/30/2021 8:37 AM EDT Body Mass Index 20.23 06/30/2021 8:37 AM EDT documented in this encounter Progress Notes Jermain Prasad RN - 06/30/2021 8:30 AM EDT INFUSION THERAPY ADMINISTRATION NOTES DIAGNOSIS: NSCLC CYCLE #: 4, Day1 REASON FOR VISIT: Nivolumab Infusion SUBJECTIVE Mr. Mcwilliams is here for C Nivolumab infusion. He had a telehealth visit with Dr. Morales 06/27. He has no questions/concerns and is ready for treatment today. OBJECTIVE LAB DATA: Labs drawn today at [facility] 06/26 . Reviewed and found adequate for treatment today. [...] Visit Hematology and Oncology Castro Leong MD [facility] HEMATOLOGY/[place] [address] Maylin Monet APRN [facility] [place] [address] 12/29/2021 Infusion Hematology and Oncology documented as [...] nivolumab (Opdivo) 360 mg in New Bag 06/30/2021 9:06 AM EDT 360 mg 272 mL/hr sodium chloride 0.9% 136 mL infusion 360 mg, Intravenous, ONCE, 1 dose, On Wed06/30/21 at 0830, Administer over 30 Minutes, Flush line with NS after each dose, This agent is restricted to outpatient use. Is this drug being given as an outpatient? Yes documented in this encounter Care Teams Motor Vehicles Inspector Relationship Specialty Start Date End Date Paxton Segura MD PCP - General Family Medicine 12/03/[address] [place] [address] documented as of this encounter
--- OUTSIDE RECORDS SUMMARY | 2021-12-08 08:47 | XMS_ITS | Encounter Summary ---
:1945 Author Organization [facility] [place] [address] Care Team Providers Name Role Phone Paxton Segura MD Primary Care Provider [phone] Encounter Details Date Type Department Care Team Description 09/24/2021 TH Visit Hematology and Rizwan Leong, Primary malignant (TeleHealth) Oncology at [facility] [place] neoplasm of left [facility] low er lobe of lung [address] [place] HEMATOLOGY/ONCOLOGY [address] DEPT [phone] [place], [place] [address] (Wo rk) Social History Tobacco [...] encounter Progress Notes Rizwan Leong MD - 09/24/2021 10:00 AM EDT Images from the original note were not included. [place] [address] [phone] Due to the COVID-19 pandemic this visit is being conducted via telephone. We had aimed to do it bvy video but despite trouble shooting he was not able to get his video to work on his end 25 minutes was spent in reviewing imaging [...] intent # NSCLC - PET scan from yesterday reviewed. Formal read still pending but on my review he's had an excellent response which is very encouraging and while its hard to prognosticate and perhas premature we did discuss that we occasionally seem durable responses (sometimes on the order of years) with immunotherapy. Clinically doing quite well (recovered from recent COVID illness which was mild fortunately) Given how well he is doing but needing to balance potential AI side effects recommended we continue immunotherapy with nivolumab alone at this juncture and continue to the prednisone 10mg for a while to help control the rash. 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 Segura # Rash/Pruritus - likely immune related- improved. Primarily on back and about the same according topjoe's - Continue Prednisone and topicals (has triamcinolone cream at home) # Anxiety- Seems improved. He's stopped the lorazepam and is on prozac 20mg at this point and feels good. He would like Dr Segura to be the main prescriber and traffic incident management manager of his mental health regimen. - [...] scheduled to see SABA Leong MD, MS 09/24/2021 Thoracic Oncology [facility] Cancer [facility] HPI/Interval History/Subjective: Still feels something with a deep breath but overall doing quite well Doing exercises- 1/2 [address] hill and feels this is very helpful overall Minimal rash over the last 4 weeks- a few days where it was noticeable. Itching persists-present daily. In the past week it has significantly diminished. Takes prednisone 10mg QD and some topicals. Also takes a benadryl at night. Sugars have been erraticthough. Eating a lot of fruit. Recent COVID infection-tested negative the last 4 days. Mild runny nose and some sl fatigue. Not really sick. Took paxlovid Eating ok. Appetite is good. Weight 138 lbs which is up. Stopped the lorazepam entirely. Now on Prozac 20mg Bowels have been good. No diarrhea Some chronic hoarseness over the past few months - a bit worse of late. Social History/Support Network: Home situation: . Lives in [facility]. 2 children-one in [place] and one in [place]. 3grandkids. 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 Tobacco use: Never smoker. Does have some [...] on restaging PET scan ONCBCN ONCOLOGY (AMB) 03/24/2021 04/14/2021 06/09/2021 06/30/2021 08/11/2021 09/01/2021 09/24/2021 Day, Cycle Day 22, Cycle 2 Day 1, Cycle 3 Day 22, Cycle 3 Day 1, Cycle 4 Day 22, Cycle 4 Day 1, Cycle 5 Day 22, Cycle 5 CARBOplatin (Paraplatin) IV - - - - - - - ipilimumab (Yervoy) IV - 1 mg/kg/dose = 60 mg - - - - - nivolumab (Opdivo) IV 360 mg 360 mg 360 mg 360 mg 360 mg 360 mg 360 mg PACLitaxeL (Taxol) IV - - - - - - - No Known Allergies Medications 09/24/21 1028 Medication Sig Taking? diphenhydrAMINE (Benadryl) 25 mg Capsule Take 25 mg by mouth every 6 hours as needed for Itching. Taking nightly Yes predniSONE (Deltasone) 10 mg Tablet Take 1 tablet by mouth daily. Yes triamcinolone (ARISTOCORT) 0.5 % Cream Apply [...] times daily (before meals). Sliding scale Yes Lantus Solostar U-100 Insulin pen 20 Units. Patient stating taking 20 units at HS. Yes losartan (Cozaar) 50 mg Tablet TAKE 1 TABLET BY MOUTH DAILY Yes Janumet 50-1,000 mg Tablet TAKE 1 TABLET BY MOUTH TWICE DAILY Yes latanoprost (XALATAN) 0.005 % ophthalmic solution 1 drop nightly. Yes atorvastatin (LIPITOR) 10 mg tablet 10mg, PO, Once daily Yes prochlorperazine (Compazine) 10 mg Tablet Take 1 tablet by mouth every 6 hours as needed for Nausea. Patient not taking: No sig reported Jardiance 25 mg Tablet 12.5mg daily Glucagon 1 mg Recon Soln Inject subcutaneously. valACYclovir (Valtrex) 500 mg Tablet Take by mouth as needed. As needed I reviewed the problem list, allergies, medications, past medical history, social history and familyhistory within the EPIC encounter. Pertinent details are noted above. Pertinent positives and negative from the Review of Systems are as summarized above in the HPI. Physical Exam: Wt Readings from Last 3 Encounters: 09/24/21 62.8 kg (138 lb 6.4 oz) 09/01/21 62 kg (136 lb 9.6 oz) 08/11/21 59.7 kg (131 lb 9.6 oz) Temp Readings from Last 3 Encounters: 09/24/21 36.5 ??C (97.7 ??F) (Temporal) 09/01/21 36.6 ??C (97.9 ??F) (Temporal) 08/11/21 36.3 ??C (97.3 ??F) (Temporal) BP Readings from Last 3 Encounters: 09/24/21 135/72 09/01/21 138/82 08/11/21 125/77 Pulse Readings from Last 3 Encounters: 09/24/21 73 09/01/21 77 08/11/21 72 There is no height or weight on file to calculate BSA. Wt Readings from Last 3 Encounters: 09/24/21 62.8 kg (138 lb 6.4 oz) 09/01/21 62 kg (136 lb 9.6 oz) 08/11/21 59.7 kg (131 lb 9.6 oz) KPS Score ECOG Grade Definition 90-100 [...] were no vitals taken for this visit. Physical Exam Review of Laboratory Data: 7.6. 6.13. White blood cell count 7.06 hemoglobin 14.5 [...] prot 6.6, TSH 3,80, Free T4 0.96 06.02.21 White blood cell count 8.79 hemoglobin [...] AST-13 ALT-23 Alk phos-43 Albumin-3.7 TSH-5.03 FT4-0.79 05.05.21 White blood cell count 8.16 hemoglobin 14.9 [...] 0.88 though down from 0.96 the prior ..21 White blood cell count 8.93 hemoglobin 13.9 [...] Review of Imaging Data: 7.5.22 PET scan (I reviewed the imaging personally which shows a response to treatment.) 3.14.22 CT Chest 2.9.21 CT Chest 12.8.21 CT Review of Pathology Data: documented in this encounter Plan of Treatment Upcoming Encounters Date Type Specialty Care Team Description 12/29/2021 Office Visit Hematology and Oncology Castro Leong MD [facility] DR HEMATOLOGY/[place] [address] Maylin Monet APRN [facility] [place] [address] 12/29/2021 Infusion Hematology and Oncology documented as of this encounter Visit Diagnoses Diagnosis Primary malignant neoplasm of left lower lobe of lung Malignant neoplasm of lower lobe, bronch us, or lung documented in this encounter Care Teams Insurance Claim Approver Relationship Specialty Start Date End Date Paxton Segura MD PCP - General Family Medicine 12/03/[address] [place] [address] documented as of this encounter
--- OUTSIDE RECORDS SUMMARY | 2021-12-08 08:47 | XMS_ITS | Encounter Summary ---
:1945 Author Organization [place] [address] Care Team Providers Name Role Phone Paxton Segura MD Primary Care Provider [phone] Reason for Referral Diagnostic Test (Routine) - Pending Review Specialty Diagnoses / Procedures Referred By Contact Refer red To Contact Radiology Diagnoses Primary malignant neoplasm of left lower lobe of lung Malignant pleural effusion Pneumonitis Rizwan Leong MD Procedures CT Chest w Contrast [facility] HEMATOLOGY/[place] [address] Referral ID Status Reason Start Expiration Visits Visits Date Date Requested Authorized [id number] Pending Specialty 05/05/2021 11/02/2022 1 1 Review Service Requested Encounter Details Date Type Department Care Team Description 05/05/2021 Office Visit Hematology/Oncology Rizwan Leong, Pr imary malignant neoplasm of left lower lobe of lung; at [facility] MD Malignant pleural effusion; [address] [place] [address] Pneumonitis; [place], [place] DR Drug dermatitis [id number] HEMATOLOGY/ONCOLOGY [phone] DEPT [place], [place] [address] (Wo rk) Social History Tobacco Use Types [...] Sign Reading Time Taken Comments Blood Pressure 134/80 05/05/2021 8:49 AM EST Pulse 77 05/05/2021 8:49 AM EST Temperature 36.4 ??C (97.5 ??F) 05/05/2021 8:49 AM EST Respiratory Rate 18 05/05/2021 8:49 AM EST Oxygen Saturation 99% 05/05/2021 8:49 AM EST Inhaled Oxygen Concentration - - Weight 59 kg (130 lb) 05/05/2021 8:49 AM EST Height 172.1 cm (5' 7.76) 05/05/2021 8:49 AM EST Body Mass Index 19.91 05/05/2021 8:49 AM EST documented in this encounter Patient Instructions Patient InstructionsFuld, Rizwan Garay MD - 05/05/2021 9:20 AM EST As we discussed today, the scan shows that things ar stable with respect to your cancer which is excellent news. However, I am concerned that there is some inflammation developing in the lungs that is caused by the cancer immunotherapy. It could also be due to an infection but it is hard to say for sure. Infections are not usually on both sides. Therefore our plan will be: 1) Pause the cancer immunotherapy for at least a month 2) Start you on an antibiotic course to treat any infectious component: - One is called AZITHROMYCIN (aka ZPAK) which is 2 pills on the first day and then one pill for 4 additoinal days - The second is called AUGMENTIN (which 1 tablet twice a day for 7 days) 3) Start you on a course of PREDNISONE to reduce the inflammation with the following schedule Start on Prednisone 60mg a day today until next 05.12. On 05.12 decrease it to 40mg a day. On 05.19 decrease the Prednisone to 30mg a day and keep it there until I see you on May 26 and will advise you on additional taper. Given the problems with your insurance I am going to order a CT scan now to be done the week of 06/02at [facility]. Please note that the steroids will make your blood glucose go up and may also worsen your anxiety atthe higher does. You should reach out to Dr. Segura so that he can adjust your insulin accordingly. I will send him this note as well. Steroids can also interfere with sleep so it is best to take them WITH FOOD in the MORNING. 4) To reduce the risk of other types of infections that can occur when you are on steroids I also want you to start an antibiotic called BACTRIM (aka. TRIMETHOPRIM/SULFAMETHOXAZOLE) which you will takeon WEDNESDAY, WEDNESDAY, WEDNESDAY each week while you are on the steroids. You should start this NEXT WEEK - meaning after you have completed the above antibiotis. documented in this encounter Progress Notes Rizwan Leong MD - 05/05/2021 8:30 AM EST Images from the original note were not included. [place] [address] [phone] Chandana Mcwilliams is being seen for the [...] ? Pneumonitis vs infection on restaging - Hold immunothera - Abx course and steroid course as detailed in patient instructions below - PJP proph - Repeat CT scan in 5 weeks # Stage IV NSCLC - good response to initial treatment on restaging. Stbae disease on 2.9 - As above hold treatment Chandana returns today to continue immunotherapy. Having mild itching relieved with steroid cream and intermittent oral prednisone Restaging scan after dose on 2021. ( he reports- his insurance denied this for unclear reasons). # Rash - likely immune related- improved. # Anxiety- Seems improved with higher dose of prozac. He would like Dr Segura to be the main prescriber and supplier quality engineering manager of his mental health regimen. - [...] AD on file-will address at future visit. Rizwan Leong MD, MS 05/05/2021 Medical Oncology & Hematology [facility] CC: MD Gisell Swartz MD Patient Instructions As we discussed today, the scan shows that things ar stable with respect to your cancer which is excellent news. However, I am concerned that there is some inflammation developing in the lungs that is caused by the cancer immunotherapy. It could also be due to an infection but it is hard to say for sure. Infections are not usually on both sides. Therefore our plan will be: 1) Pause the cancer immunotherapy for at least a month 2) Start you on an antibiotic course to treat any infectious component: - One is called AZITHROMYCIN (aka ZPAK) which is 2 pills on the first day and then one pill for 4 additoinal days - The second is called AUGMENTIN (which 1 tablet twice a day for 7 days) 3) Start you on a course of PREDNISONE to reduce the inflammation with the following schedule Start on Prednisone 60mg a day today until next 05.12. On 05.12 decrease it to 40mg a day. On 05.19 decrease the Prednisone to 30mg a day and keep it there until I see you on May 26 and will advise you on additional taper. Given the problems with your insurance I am going to order a CT scan now to be done the week of 06/02at [facility]. Please note that the steroids will make your blood glucose go up and may also worsen your anxiety atthe higher does. You should reach out to Dr. Segura so that he can adjust your insulin accordingly. I will send him this note as well. Steroids can also interfere with sleep so it is best to take them WITH FOOD in the MORNING. 4) To reduce the risk of other types of infections that can occur when you are on steroids I also want you to start an antibiotic called BACTRIM (aka. TRIMETHOPRIM/SULFAMETHOXAZOLE) which you will takeon WEDNESDAY, WEDNESDAY, WEDNESDAY each week while you are on the steroids. You should start this NEXT WEEK - meaning after you have completed the above antibiotis. HPI/Interval History/Subjective: Last seen 04/14/2021 More of a cough and raspiness since his last treatment. No fevers. Mild phlegm. No hemoptysis. Some chronic sinus drainage that is a chronic. No COVID contacts Rash has worsened in the past few days. Hasn't used the prednisone in 2 weeks. Continue to use the steroid cream and a hand cream. Which helps with the itching. thinks it is stable. Went for a walk yesterday and finished it off with a [employer] job. Having more left sided discomfort like a sore muscle. Balance has been ok. Mood has been better on 60mg fluoxetine daily. Using the lorazepam 3x a day 0.5mg TID which helps. Continues to be active COVID end of May. Social History/Support Network: Home situation: . Lives in [facility]. 2 children-one in [place] and one in [place]. 3grandkids. 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 Tobacco use: Never smoker. Does have some [...] Nivo, carbo, paclitaxel. Restaging with improved disease. 12.13.21 C2 Ipi/Nivo alone ONCBCN ONCOLOGY (AMB) 01/16/2021 [...] Known Allergies Medications 05/05/21911 Medication Sig Taking? triamcinolone (ARISTOCORT) 0.5 % Cream Apply topically 2 times daily. Yes FLUoxetine (PROzac) 20 mg Tablet 60 mg. Patient stated taking three tablets daily to equal 60 mg total daily. Yes LORazepam (Ativan) 0.5 mg Tablet Take 2 tablets three times a day as needed for anxiety Yes dorzolamide-timoloL (Cosopt) 22.3-6.8 mg/mL Drops INSTILL ONE DROP INTO BOTH EYES TWO TIMES A DAY Yes insulin lispro (HumaLOG) Insulin Pen Inject subcutaneously 3 times daily (before meals). Sliding scale Yes Jardiance 25 mg Tablet 12.5mg daily Yes Lantus Solostar U-100 Insulin pen INJECT 12 UNITS SUBCUTANEOUSLY AT BEDTIME Yes losartan (Cozaar) 50 mg Tablet TAKE 1 TABLET BY MOUTH DAILY Yes Janumet 50-1,000 mg Tablet TAKE 1 TABLET BY MOUTH TWICE DAILY Yes timolol (TIMOPTIC) 0.25 % ophthalmic solution 1 drop 2 times daily. Yes latanoprost (XALATAN) 0.005 % ophthalmic solution 1 drop nightly. Yes atorvastatin (LIPITOR) 10 mg tablet 10mg, PO, Once daily Yes amoxicillin-clavulanate (Augmentin) 875-125 mg Tablet Take 1 tablet by mouth 2 times daily for 7 days. azithromycin (Zithromax) 250 mg Tablet Take 2 tablets by mouth daily for 1 day, THEN 1 tablet daily for 4 days. sulfamethoxazole-trimethoprim DS (Bactrim DS) 800-160 mg Tablet Take 1 tablet by mouth three times aweek. predniSONE (Deltasone) 10 mg Tablet Take 6 tablets by mouth daily for 7 days, THEN 4 tablets daily for 7 days, THEN 3 tablets daily for 7 days, THEN 2 tablets daily for 7 days, THEN 1 tablet daily for 7 days. prochlorperazine (Compazine) 10 mg Tablet Take 1 tablet by mouth every 6 hours as needed for Nausea. Patient not taking: No sig reported naproxen sodium (ALEVE) 220 mg Capsule Take by mouth. acetaminophen (Tylenol) 500 mg Tablet Take 2 tablets by mouth every 6 hours. Patient not taking: Reported on 05/05/2021 Glucagon 1 mg Recon Soln Inject subcutaneously. [...] Encounters: 05/05/21 77 04/14/21 68 03/24/21 73 Body surface area is 1.68 meters squared. Wt Readings from Last 3 Encounters: 05/05/21 [...] or chair ECOG 1 Physical Exam BP 134/80 (Patient Position: Sitting) Pulse 77 Temp 36.4 ??C (97.5 ??F) (Temporal) Resp 18 Ht 172.1 cm (5' 7.76) Wt 59 kg (130 lb) SpO2 99% BMI 19.91 kg/m?? Physical Exam Constitutional: General: Not in [...] Thought content normal. Judgment: Judgment normal. Skin: Review of Laboratory Data: 2.14.22 White blood cell count 8.16 hemoglobin [...] free T4 1.09 Review of Imaging Data: .9.21 CT Chest (I reviewed the imaging personally which shows stable disease though some ? Changes concerning for iinfection or pneumonitis.) 02.26.21 CT Review of Pathology Data: documented in this encounter Plan of Treatment Upcoming Encounters Date Type Specialty Care Team Description 12/29/2021 Office Visit Hematology and Oncology Castro Leong MD [facility] DR HEMATOLOGY/[place] [address] Maylin Monet APRN [facility] [place]ATOLOGY [place] [address] 12/29/2021 Infusion Hematology and Oncology Scheduled Orders Name Type Priority Associated Diagnoses Order S chedule CT Chest w Contrast Imaging Routine Primary malignant Exp ected: 06/02/2021 neoplasm of left lower (Appr oximate), Expires: lobe of lung 05/05/2022 Malignant pleural effusion Pneumonitis documented as of this encounter Visit Diagnoses Diagnosis Primary malignant neoplasm of left lower lobe of lung Malignant neoplasm of lower lobe, bronch us, or lung Malignant pleural effusion Pneumonitis Pneumonia, organism unspecified Drug dermatitis Dermatitis due to drugs and medicines ta lisette internally documented in this encounter Care Teams Certified Nutritionist Relationship Specialty Start Date End Date Paxton Segura MD PCP - General Family Medicine 12/03/[address] [place] [address] documented as of this encounter
--- OUTSIDE RECORDS SUMMARY | 2021-12-08 08:47 | XMS_ITS | Encounter Summary ---
:1945 Author Organization [facility] [place] [address] Care Team Providers Name Role Phone Paxton Segura MD Primary Care Provider [phone] Reason for Visit Diagnostic Test (Routine) - Closed Specialty Diagnoses / Procedures Referred By Contact Refer red To Contact Radiology Diagnoses Primary malignant neoplasm of left lower lobe of lung Rizwan Leong MD [facility] Rad Nuclear Med Procedures NM PET CT Skull Base to Mid-thigh [facility] HEMATOLOGY/[place] [address] [place] [address] Referral ID Status Reason Start Date Expiration Date Visits V isits Requested Authorized [id number] Closed Specialty 08/21/2021 11/19/2021 1 1 Service Requested Encounter Details Date Type Department Care Team Description 09/23/2021 [facility] HEMATOLOGY/ONCOLOGY [facility] [place] [address] [place] [address] [phone] (Wo rk) Social History Tobacco Use Types [...] Visit Hematology and Oncology Castro Leong MD [facility] DR HEMATOLOGY/[place] [address] Maylin Monet APRN [facility] DR HEMATOLOGY [place] [address] 12/29/2021 Infusion Hematology and Oncology documented as [...] procedure are i n the results section. documented in this encounter Results POCT Glucose (09/23/2021 1:13 PM EDT) P athologist Signature POC Glucose 181 65 - 199 [facility] mg/dL [facility] Comment: Supplemental ranges: <140 mg/dL before meals <180 mg/dL all other times of the day Specimen Anatomical Collection Method Collection Time Receive d Time (Source) Location / / Volume Laterality Blood 09/23/2021 1:13 PM 2 1:13 EDT PM EDT Rizwan Leong MD POINT OF CARE TEST ORDERABLE S Performing Organization Address City/State/[place] [address] documented in this encounter Visit Diagnoses Not on filedocumented in this encounter Care Teams Invertebrate Paleontologist Relationship Specialty Start Date End Date Paxton Segura MD PCP - General Family Medicine 12/03/[address] [place] [address] documented as of this encounter
--- OUTSIDE RECORDS SUMMARY | 2021-12-08 08:47 | XMS_ITS | Encounter Summary ---
:1945 Author Organization [facility] [place] [address] Care Team Providers Name Role Phone Paxton Segura MD Primary Care Provider [phone] Encounter Details Date Type Department Care Team Description 05/26/2021 Office Visit Hematology/Oncology Melissa Pablo RD Primary malignant at [facility] neoplasm of left lower [address] [place] [address] [address] lobe of lung [place], [place] HEMATOLOGY AND [phone] ONCOLOGY [phone] [place] [id number] Social History Tobacco Use Types Packs/Day Years [...] encounter Progress Notes Melissa Pablo RD - 05/26/2021 9:00 AM EST Patient not seen in clinic today. Will check in with him during infusion on 06/16. documented in this encounter Plan of Treatment Upcoming Encounters Date Type Specialty Care Team Description 12/29/2021 Office Visit Hematology and Oncology Castro Leong MD [facility] DR HEMATOLOGY/[place] [address] Maylin Monet APRN [facility] [place] [address] 12/29/2021 Infusion Hematology and Oncology documented as of this encounter Visit Diagnoses Diagnosis Primary malignant neoplasm of left lower lobe of lung Malignant neoplasm of lower lobe, bronch us, or lung documented in this encounter Care Teams Quarantine Officer Relationship Specialty Start Date End Date Paxton Segura MD PCP - General Family Medicine 12/03/[address] [place] [address] documented as of this encounter
--- OUTSIDE RECORDS SUMMARY | 2021-12-08 08:47 | XMS_ITS | Encounter Summary ---
:1945 Author Organization [facility] [place] [address] Care Team Providers Name Role Phone Paxton Segura MD Primary Care Provider [phone] Encounter Details Date Type Department Care Team Description 04/29/2021 Orders Only Hematology/Oncology Tati Wladen L, Prim gaby malignant neoplasm of left lower lobe of lung; at [facility] Malignant pleural effusion [address] [place]OG [place] [address] [place], [place] [phone] (Wo rk) Social History Tobacco Use Types [...] Visit Hematology and Oncology Castro Leong MD [facility] HEMATOLOGY/[place] [address] Maylin Monet APRN [facility] [place] [address] 12/29/2021 Infusion Hematology and Oncology documented as of this encounter Visit Diagnoses Diagnosis Primary malignant neoplasm of left lower lobe of lung Malignant neoplasm of lower lobe, bronch us, or lung Malignant pleural effusion documented in this encounter Care Teams Privacy Compliance Manager Relationship Specialty Start Date End Date Paxton Segura MD PCP - General Family Medicine 12/03/[address] [place] [address] [address] [place] [address] documented as of this encounter
--- OUTSIDE RECORDS SUMMARY | 2021-12-08 08:47 | XMS_ITS | Encounter Summary ---
:1945 Author Organization [facility] [place] [address] Care Team Providers Name Role Phone Paxton Segura MD Primary Care Provider [phone] Encounter Details Date Type Department Care Team Description 10/20/2021 Office Visit Hematology/Oncology Maylin Monet Pri mary malignant neoplasm of left lower lobe of lung; at [facility] Medication management; [address] [place] [address] Drug dermatitis; [place], [place] Elevated serum creatinine [phone] HEMATOLOGY AND [phone] ONCOLOGY [place] [phone] Social History Tobacco Use Types Packs/Day Years [...] Sign Reading Time Taken Comments Blood Pressure 99/62 10/20/2021 2:07 PM EDT Pulse 76 10/20/2021 2:07 PM EDT Temperature 36.8 ??C (98.2 ??F) 10/20/2021 2:07 PM EDT Respiratory Rate 18 10/20/2021 2:07 PM EDT Oxygen Saturation 98% 10/20/2021 2:07 PM EDT Inhaled Oxygen Concentration - - Weight 62.1 kg (137 lb) 10/20/2021 2:07 PM EDT Height 172.7 cm (5' 7.99) 10/20/2021 2:07 PM EDT Body Mass Index 20.84 10/20/2021 2:07 PM EDT documented in this encounter Progress Notes ForMaylin malik APRN - 10/20/2021 2:00 PM EDT Images from the original note were not included[place] [address] [phone] Chandana Mcwilliams is being seen for the [...] intent # NSCLC - PET scan from early September showed excellent response. Clinically doing quite well (recovered from recent COVID illness which was mild fortunately) Given how well he is doing but needing to balance potential AI side effects recommended we continue immunotherapy with nivolumab alone at this juncture and continue to the prednisone 10mg for a while to help control the rash. Can consider reducing the pred down the road - Nivolumab today - - Labs and toxicities assessed and acceptable for ongoing treatment. - RTC on 11.10 # Diabetes - sugars have been erratic and some of this may be related to dietary indiscretion with the summer fruits and ice cream he notes Pred 10 not helping but probably not the main rolloff driver - Recommended he discuss possible adjustment to his insulin regimen with Dr. Segura # - elevated Creatinine/BUN - has been borderline - increased blood sugars could be contributing. Talked to Chandana about hydrating more at home. # Rash/Pruritus - likely immune related- improved. Primarily on back and upper chest - Chandana believes it is improving. - Continue Prednisone and topicals (has triamcinolone cream at home) - he has not been using topicals suggested he resume in effort to taper Prednisone # Anxiety- Seems improved. He's stopped the lorazepam and is on prozac 20mg at this point and feels good. He would like Dr Segura to be the main prescriber and government contracts manager of his mental health regimen. - [...] visit. He is scheduled to see SABA Monet TECHNICAL INSPECTOR 10/20/2021 Thoracic Oncology [facility] HPI/Interval History/Subjective: Breathing great - able to walk up hills. Is active and recently traveled to [place] He believes the rash is improving - primarily on upper back and chest - Itching does persist. Takes prednisone 10mg QD and some topicals. Also takes a benadryl at night. Sugars have been erraticthough. Eating a lot of fruit (ate melon and entire container of cherries this morning). Eating ok. Appetite is good. Weight stable. Now on Prozac 20mg - feels he is in a better place in terms of his physical health Bowels have been good. No diarrhea - GI track working better than ever Some chronic hoarseness over the past few months - has some post nasal drip and thinks may be contributing. 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 Social History/Support Network: Home situation: . Lives in [facility]. 2 children-one in [place] and one in [place]. 3grandkids. 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 Does have some [...] needed for Itching. Taking nightly predniSONE (Deltasone) 10 mg Tablet Take 1 tablet by mouth daily. triamcinolone (ARISTOCORT) 0.5 % Cream Apply topically 2 times daily. FLUoxetine (PROzac) 20 mg Tablet 60 mg. Patient stated taking three tablets daily to equal 60 mg total daily. Patient taking differently: 20 mg. 40 mg. Patient stated taking two tablets daily. dorzolamide-timoloL (Cosopt) 22.3-6.8 mg/mL Drops INSTILL ONE DROP INTO BOTH EYES TWO TIMES A DAY prochlorperazine (Compazine) 10 mg Tablet Take 1 tablet by mouth every 6 hours as needed for Nausea. Patient not taking: No sig reported insulin [...] Exam: Wt Readings from Last 3 Encounters: 10/20/21 62.1 kg (137 lb) 09/24/21 62.8 kg (138 lb 6.4 oz) 09/01/21 62 kg (136 lb 9.6 oz) Temp Readings from Last 3 Encounters: 10/20/21 36.8 ??C (98.2 ??F) (Temporal) 09/24/21 36.5 ??C (97.7 ??F) (Temporal) 09/01/21 36.6 ??C (97.9 ??F) (Temporal) BP Readings from Last 3 Encounters: 10/20/21 99/62 09/24/21 135/72 09/01/21 138/82 Pulse Readings from Last 3 Encounters: 10/20/21 76 09/24/21 73 09/01/21 77 There is no height or weight on file to calculate BSA. Wt Readings from Last 3 Encounters: 10/20/21 62.1 kg (137 lb) 09/24/21 62.8 kg (138 lb 6.4 oz) 09/01/21 62 kg (136 lb 9.6 oz) KPS Score ECOG Grade [...] to bed or chair Physical Exam BP 99/62 (Patient Position: Sitting) Pulse 76 Temp 36.8 ??C (98.2 ??F) (Temporal) Resp 18 Ht172.7 cm (5' 7.99) Wt 62.1 kg (137 lb) SpO2 98% BMI 20.84 kg/m?? GENERAL: Thin appearing male in no [...] No focal deficits. Review of Laboratory Data: 10/20/21 WBC 11.99, Hgb 15.3, Plt Ct [...] prot 6.6, TSH 3,80, Free T4 0.96 3 White blood cell count 8.79 hemoglobin 15.1 [...] free T4 1.09 Review of Imaging Data: 09.23.21 PET scan (I reviewed the imaging personally which shows a response to treatment.) 06.02.21 CT Chest 04.30.20 CT Chest 02.26.21 CT Review of Pathology Data: documented in this encounter Plan of Treatment Upcoming Encounters Date Type Specialty Care Team Description 12/29/2021 Office Visit Hematology and Oncology Castro Leong MD [facility] DR HEMATOLOGY/[place] [address] Maylin Monet APRN [facility] [place] [address] 12/29/2021 Infusion Hematology and Oncology documented as of this encounter Visit Diagnoses Diagnosis Primary malignant neoplasm of left lower lobe of lung Malignant neoplasm of lower lobe, bronch us, or lung Medication management Encounter for long-term (current) use of other medications Drug dermatitis Dermatitis due to drugs and medicines ta lisette internally Elevated serum creatinine Other nonspecific findings on examinatio n of blood documented in this encounter Care Teams Ambulance Dispatcher Relationship Specialty Start Date End Date Paxton Segura MD PCP - General Family Medicine 12/03/[address] [place] [address] documented as of this encounter
--- OUTSIDE RECORDS SUMMARY | 2021-12-08 08:47 | XMS_ITS | Encounter Summary ---
:1945 Author Organization [facility] [address] Care Team Providers Name Role Phone Paxton Segura MD Primary Care Provider [phone] Encounter Details Date Type Department Care Team Description 05/09/2021 [facility]phone [facility] [place] [facility] [address] [place], [place] [phone] Social History Tobacco Use [...] this encounter Miscellaneous Notes Telephone Encounter - Glo Quinn RN - 05/09/2021 11:30 AM EST Telephone call to patient to see how he is doing following his appt with Dr. Leong on Friday 05/05. Patient reports that the Prednisone has made me into a normal person. States that his skin has cleared up and he is only 1/10th as itchy as it was. Reports that his breathing is ok. Only issue is if I take a deep I feel a lameness or pain where the tumor is. He denies shortness of breath, denies cough. States that he has been more physically active this week than he has been for a while. Reviewed medication administration instructions for Prednisone, per Dr. Leong's note. He verifies that he is taking the Azithromycin and the Augmentin. He will start Bactrim next Wednesday and take it Mondays, Wednesdays and Fridays. Appt with Dr. Leong on 05/26. Instructed Chandana to call clinic prior to then with any questions/concerns. Dr. Leong updated via this note. documented in this encounter Plan of Treatment Upcoming Encounters Date Type Specialty Care Team Description 12/29/2021 Office Visit Hematology and Oncology Castro Leong MD [facility] DR HEMATOLOGY/[place] [address] Maylin Monet APRN [facility] [place] [address] 12/29/2021 Infusion Hematology and Oncology documented as of this encounter Visit Diagnoses Not on filedocumented in this encounter Care Teams Body Designer Relationship Specialty Start Date End Date Paxton Segura MD PCP - General Family Medicine 12/03/[address] [place] [address] documented as of this encounter
--- OUTSIDE RECORDS SUMMARY | 2021-12-08 08:47 | XMS_ITS | Encounter Summary ---
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; at [facility] Maylin Monet APRN [facility] DR [place] [address] Drug dermatitis [address] [place] [phone] Social History Tobacco Use Types Packs/Day Years [...] Sign Reading Time Taken Comments Blood Pressure 138/82 09/01/2021 9:41 AM EDT Pulse 77 09/01/2021 9:41 AM EDT Temperature 36.6 ??C (97.9 ??F) 09/01/2021 9:41 AM EDT Respiratory Rate 18 09/01/2021 9:41 AM EDT Oxygen Saturation 100% 09/01/2021 9:41 AM EDT Inhaled Oxygen Concentration - - Weight 62 kg (136 lb 9.6 oz) 09/01/2021 9:41 AM EDT Height 172.7 cm (5' 7.99) 09/01/2021 9:41 AM EDT Body Mass Index 20.77 09/01/2021 9:41 AM EDT documented in this encounter Progress Notes Rizwan Leong MD - 09/01/2021 9:30 AM EDT Images from the original note were not included[place] [address] [phone] Chandana Mcwilliams is being seen for the [...] to proceed with Nivolumab today [id number] - Restaging PET scan scheduled for 09.05 # Rash - likely immune related- improved. Primarily on back and about the same according to patient's - Continue Prednisone and topicals (has triamcinolone cream at home) # Anxiety- Seems improved with higher dose of prozac. He would like Dr Segura to be the main prescriber and manager international of his mental health regimen. - He [...] future visit. He is scheduled to see SW HPI/Interval History/Subjective: Last seen 08/11/2021 Notes some prominent varicose veins Itching on the torso and across the belt and legs. Using the triamcinolone 0.5%. Prednisone 10mg daily for several weeks. Breathing is generally great No recent changes. Notes the incentive spirometer function that he isdoing is actually better. No fevers. Had a brief a cold a few weeks back. Feeling pretty good. This is like a [...] Mental health improving and his supports this. Takes half tab every other night lorazepam. Prozac down to 30mg at this point Working around house and on selling off some property Bowels have been soft - moves bowels at least once a day (sometimes twice). No diarrhea Does get a cough after moderate activity. Productive at times - mostly dry. Some chronic hoarseness over the past few months - a bit worse of late. Social History/Support Network: Home situation: . Lives in [facility]. 2 children-one in [place] and one in [place]. 3grandkids. 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 Tobacco use: Never smoker. Does have [...] consistent 06.09.21 Resumed nivolumab alone and ongoing ONCBCN ONCOLOGY (AMB) 02/11/2021 03/03/2021 03/24/2021 04/14/2021 06/09/2021 06/30/2021 08/11/2021 Day, Cycle Day 22, Cycle 1 Day 1, Cycle 2 Day 22, Cycle 2 Day 1, Cycle 3 Day 22, Cycle 3 Day 1, Cycle 4 Day 22, Cycle 4 CARBOplatin (Paraplatin) IV 394 mg - - - - - - ipilimumab (Yervoy) IV - 1 mg/kg/dose = 60 mg - 1 mg/kg/dose = 60 mg - - - nivolumab (Opdivo) IV 360 mg 360 mg 360 mg 360 mg 360 mg 360 mg 360 mg PACLitaxeL (Taxol) IV 200 mg/m2/dose = 336 mg - - - - - - No Known Allergies Medications 09/01/21 0948 Medication Sig Taking? diphenhydrAMINE (Benadryl) 25 mg Capsule Take 25 mg by mouth every 6 hours as needed for Itching. Taking nightly Yes predniSONE (Deltasone) 10 mg Tablet Take 1 tablet by mouth daily. Yes predniSONE (Deltasone) 10 mg Tablet Take 10 mg by mouth daily. Yes LORazepam (Ativan) 1 mg Tablet TAKE 1/2 TO 1 TABLET BY MOUTH THREE TIMES A DAY NEEDED FOR ANXIETY/PANIC Yes triamcinolone (ARISTOCORT) 0.5 % Cream Apply topically 2 times daily. Yes FLUoxetine (PROzac) 20 mg Tablet 60 mg. Patient stated taking three tablets daily to equal 60 mg total daily. Patient taking differently: 20 mg. 40 mg. Patient stated taking two tablets daily. Yes dorzolamide-timoloL (Cosopt) 22.3-6.8 mg/mL Drops INSTILL ONE DROP INTO BOTH EYES TWO TIMES A DAY Yes naproxen sodium (ALEVE) 220 mg Capsule Take by mouth. Yes insulin lispro (HumaLOG) Insulin Pen Inject [...] mg tablet 10mg, PO, Once daily Yes sulfamethoxazole-trimethoprim DS (Bactrim DS) 800-160 mg Tablet Take 1 tablet by mouth three times aweek. Patient not taking: No sig reported prochlorperazine (Compazine) 10 mg Tablet Take 1 tablet by mouth every 6 hours as needed for Nausea. Patient not taking: Reported on 09/01/2021 acetaminophen (Tylenol) 500 mg Tablet Take 2 tablets by mouth every 6 hours. Patient not taking: No sig reported I reviewed the problem list, allergies, medications, past medical history, social history and familyhistory within the EPIC encounter. Pertinent details are noted above. Pertinent positives and negative from the Review of Systems are as summarized above in the HPI. Physical Exam: Wt Readings from Last 3 Encounters: 09/01/21 62 kg (136 lb 9.6 oz) 08/11/21 59.7 kg (131 lb 9.6 oz) 06/30/21 60.3 kg (133 lb) Temp Readings from Last 3 Encounters: 09/01/21 36.6 ??C (97.9 ??F) (Temporal) 08/11/21 36.3 ??C (97.3 ??F) (Temporal) 06/30/21 36.1 ??C (96.9 ??F) (Temporal) BP Readings from Last 3 Encounters: 09/01/21 138/82 08/11/21 125/77 06/30/21 143/79 Pulse Readings from Last 3 Encounters: 09/01/21 77 08/11/21 72 06/30/21 77 Body surface area is 1.72 meters squared. Wt Readings from Last 3 Encounters: 09/01/21 62 kg (136 lb 9.6 oz) 08/11/21 59.7 kg (131 lb 9.6 oz) 06/30/21 60.3 kg (133 lb) KPS Score ECOG Grade Definition 90-100 [...] or chair ECOG 1 Physical Exam BP 138/82 (Patient Position: Sitting) Pulse 77 Temp 36.6 ??C (97.9 ??F) (Temporal) Resp 18 Ht 172.7 cm (5' 7.99) Wt 62 kg (136 lb 9.6 oz) SpO2 100% BMI 20.77 kg/m?? Physical Exam Constitutional: General: Not in acute distress. Appearance: Normal appearance. Normal weight. Not ill-appearing, toxic- appearing or diaphoretic. HENT: Head: Atraumatic. Eyes: General: No scleral icterus. Right eye: No discharge. Left eye: No discharge. Conjunctiva/sclera: Conjunctivae normal. Pulmonary: Effort: Pulmonary effort is normal. Neurological: General: No focal deficit present. Mental Status: Alert and oriented to person, place, and time. Mental status is at baseline. Psychiatric: Mood and Affect: Mood normal. Behavior: Behavior normal. Thought Content: Thought content normal. Judgment: Judgment normal. 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
--- OUTSIDE RECORDS SUMMARY | 2021-12-08 08:47 | XMS_ITS | Encounter Summary ---
:1945 Author Organization [facility] [place] [address] Care Team Providers Name Role Phone Paxton Segura MD Primary Care Provider [phone] Encounter Details Date Type Department Care Team Description 05/05/2021 Telephone Hematology/Oncology at [place] [address] [phone] Social History Tobacco Use [...] this encounter Miscellaneous Notes Telephone Encounter - Marcella Astorga - 05/05/2021 11:08 AM EST Sent fax to [facility] 05/05/[address] Chest W/Contrast for clinical review and approval Fax confirmed : documented in this encounter Plan of Treatment Upcoming Encounters Date Type Specialty Care Team Description 12/29/2021 Office Visit Hematology and Oncology Castro Leong MD [facility] HEMATOLOGY/[place] [address] Maylin Monet APRN [facility] [place] [address] 12/29/2021 Infusion Hematology and Oncology documented as of this encounter Visit Diagnoses Not on filedocumented in this encounter Care Teams Bridge/Structure Inspection Team Leader Relationship Specialty Start Date End Date Paxton Segura MD PCP - General Family Medicine 12/03/[address] [place] [address] [address] [place] [address] documented as of this encounter
--- OUTSIDE RECORDS SUMMARY | 2021-12-08 08:48 | XMS_ITS | Encounter Summary ---
:1945 Author Organization [facility] [place] [address] Care Team Providers Name Role Phone Paxton Segura MD Primary Care Provider [phone] Encounter Details Date Type Department Care Team Description 01/16/2021 Notes Only Hematology/Oncology at [facility] OFFICE OF CARE [address] [place] [address] [phone] Social History Tobacco Use Types Packs/Day Years [...] encounter Progress Notes Delia Stewart MSW - 01/16/2021 10:59 AM EDT Reason for Referral: Brief assessment of social and emotional needs. Met with pt during his infusionvisit today to introduce myself and role of geriatric social worker to assess/address barriers to getting to and through treatments; address support needs and connect with community services and resources as needed. Family/Social Supports: Pt identified his Gena of 51 years as his primary support. They have a son and a daughter. Their son/family lives in [place]. Their daughter/family live in [place] and was just here visiting. Pt indicated they have a good group of supportive friends. Living Situation/Daily Activities/Transportation: Pt manages his daily chores and activities. He keeps as busy and active as he feels up to, He lives local and does not expect any issues with transportation. 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 He has Medicare and [employer] for insurance.He is able to manage his financial obligations. Advance Directives: Pt has completed his advance directive. Requested a copy for his medical record. Utilization of Community Resources: Palliative Care appointment 01-29-21. Adjustment to Illness/Mental Health Concerns: Pt indicated he is coping the best he can. He talked about his limited life expectancy and how he is thinking about all of this. He feels his and family are coping as best they can also. He and his are beginning to address some of their affairs to get things in order. Offered support. Identified Needs: Pt did not identify any specific needs at this time. Referrals: None at this time. Social Work Interventions: Brief assessment Supportive Counseling Advance care planning Community Resource Plan: Informed pt of CONVERTING OPERATOR availability and contact information. Will follow to assess/address psychosocial needs. MYRON Viveros, APARTMENT LEASING CONSULTANT, OSW-C Personnel Quality Assurance Auditor [facility] documented in this encounter Plan of Treatment Upcoming Encounters Date Type Specialty Care Team Description 12/29/2021 Office Visit Hematology and Oncology Castro Leong MD [facility] HEMATOLOGY/[place] [address] [facility] HEMATOLOGY [place] [address] 12/29/2021 Infusion Hematology and Oncology documented as of this encounter Visit Diagnoses Not on filedocumented in this encounter Care Teams Tuber Helper Relationship Specialty Start Date End Date Paxton Segura MD PCP - General Family Medicine 12/03/[address] [place] [address] documented as of this encounter
--- OUTSIDE RECORDS SUMMARY | 2021-12-08 08:48 | XMS_ITS | Encounter Summary ---
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 Medication management iRzwan Leong MD [facility] Hem Onc Infusion Oncology Procedures [id number] HEMATOLOGY/ONCOLOGY [place], [place] DEPT [address] [place] [address] Referral ID Status Reason Start Date Expiration Date Visits V isits Requested Authorized [id number] Authorized 08/11/2021 08/11/2022 99 99 Encounter Details Date Type Department Care Team Description 01/16/2021 Infusion Hematology Oncology at [facility] management; [facility] Primary malignant neoplasm o f left lower lobe of lung; [address] [place] [address] Malignant pleural effusion [place], [place] [phone] Social History Tobacco Use [...] Sign Reading Time Taken Comments Blood Pressure 126/64 01/16/2021 9:22 AM EDT Pulse 68 01/16/2021 9:22 AM EDT Temperature 36.3 ??C (97.3 ??F) 01/16/2021 9:22 AM EDT Respiratory Rate 18 01/16/2021 9:22 AM EDT Oxygen Saturation 100% 01/16/2021 9:22 AM EDT Inhaled Oxygen Concentration - - Weight 58.7 kg (129 lb 6.4 oz) 01/16/2021 9:22 AM EDT Height 172.1 cm (5' 7.75) 01/16/2021 9:22 AM EDT Body Mass Index 19.82 01/16/2021 9:22 AM EDT documented in this encounter Progress Notes Jermain Prasad RN - 01/16/2021 9:30 AM EDT INFUSION THERAPY ADMINISTRATION NOTES DIAGNOSIS: Lung cancer CYCLE #: 1, Day 1 REASON FOR VISIT: Chemo Nivolumab, Ipilimumab, Paclitaxel, carbo SUBJECTIVE Chandana Mcwilliams offers no complaints. OBJECTIVE LAB DATA: WDL for today's infusion IV ACCESS: PIV placed and removed after treatment Pre administration: Chemotherapy orders independently verified for drug name, route, and dosage per patient's height, weight and BSA by JERMAIN PRASAD, TAMMY & Onsite pharmacist. REACTIONS (DESCRIPTION, TIME, INTERVENTION AND EFFECTIVENESS) none ASSESSMENT Chandana Mcwilliams was awake, alert and tolerated treatment well. Pt. chemo teaching instructions included: During clinic hours (8am-5pm Wednesday-Wednesday): pt. can call [phone] with questions or concerns. After clinic hours (5pm-8am Wednesday-Wednesday and weekends) pt can call [phone] and ask for the human resources executive assistant/oncologist water purification chemist. Chandana Mcwilliams verbalized understanding of potential chemotherapy side effects and home care including but not limited to- handwashing to prevent infection, signs and symptoms of low blood counts (fever, fatigue, bleeding), to call with a fever of 100.4 or greater, any significant constipation/diarrhea, importance of nutrition and fluid intake (drinking at least 32-64 ounces of non-caffeinated beverages/day), mouth care. Chandana Mcwilliams verbalized understanding of how to take prescription medications given for home use after chemotherapy. PLAN Return to clinic per routine. documented in this encounter Plan of Treatment Upcoming Encounters Date Type Specialty Care Team Description 12/29/2021 Office Visit Hematology and Oncology Castro Leong MD [facility] [address] HEMATOLOGY/[place] [address] Maylin Monet APRN [facility] [place] [address] 12/29/2021 Infusion Hematology and Oncology documented as [...] MAR Action Action Date Dose Rate Site aprepitant (CINVANTI) injection Given 01/16/2021 10:04 AM EDT 13 0 mg Emul 130 mg 130 mg, Intravenous, ONCE, 1 dose, On Emily 01/16/21 at 1015, Alternative administration of IV push over 2 minutes is a recommendation from the training personnel supervisor. Administer prior to chemotherapy., Routine CARBOplatin (Paraplatin) 431 mg New Bag 01/16/2021 2:50 PM EDT 431 mg 586.2 mL/hr in dextrose 5% 293.1 mL infusion 431 mg (rounded from 430.5 mg, Target AUC = 5), Intravenous, ONCE, 1 dose, On Emily 01/16/21 at 1500, Administer over 30 Minutes, Warning Vesicant/Irritant Medication dexamethasone (Decadron) injection 10 mg Given 01/16/2021 10:05 AM EDT 10 mg 10 mg, Intravenous, ONCE, 1 dose, On Emily 01/16/21 at 1015, Administer prior to chemotherapy diphenhydrAMINE (Benadryl) capsule 25 mg Given 01/16/2021 10:04 AM EDT 25 mg 25 mg, Oral, ONCE, 1 dose, On Emily 01/16/21 at 1015, Routine famotidine (Pepcid) tablet 20 mg Given 01/16/2021 10:04 AM EDT 20 mg 20 mg, Oral, ONCE, 1 dose, On Emily 01/16/21 at 1015, Routine ipilimumab (Yervoy) 60 mg in sodium New Bag 01/16/2021 11:11 A M EDT 60 mg 124 mL/hr chloride 0.9% 62 mL infusion 60 mg (rounded from 58.7 mg = 1 mg/kg/dose ? 58.7 kg Treatment plan Recorded weight), Intravenous, ONCE, 1 dose, On Emily 01/16/21 at 1115, Administer over 30 Minutes, Flush line with NS after each dose, This agent is restricted to outpatient use. Is this drug being given as an outpatient? Yes nivolumab (Opdivo) 360 mg in New Bag 01/16/2021 10:31 AM EDT 360 m g 272 mL/hr sodium chloride 0.9% 136 mL infusion 360 mg, Intravenous, ONCE, 1 dose, On Emily 01/16/21 at 1045, Administer over 30 Minutes, Flush line with NS after each dose, This agent is restricted to outpatient use. Is this drug being given as an outpatient? Yes PACLitaxeL (Taxol) 336 mg in New Bag 01/16/2021 11:46 AM EDT 336 m g 202 mL/hr sodium chloride 0.9% Non-PVC 606 mL infusion 336 mg (200 mg/m2/dose ? 1.68 m2 Treatment Plan BSA from Recorded weight), Intravenous, ONCE, 1 dose, On Emily 01/16/21 at 1200, Administer over 3 Hours, Warning Vesicant/Irritant Medication palonosetron (Aloxi) (0.05 mg/mL) injection Given 12/21 10:05 AM EDT 0.25 mg 0.25 mg 0.25 mg, Intravenous, ONCE, 1 dose, On Emily 01/16/21 at 1015, Administer over 30 seconds., Routine documented in this encounter Care Teams Business Taxes Specialist Relationship Specialty Start Date End Date Paxton Segura MD PCP - General Family Medicine 12/03/20 [address] [place] [address] documented as of this encounter
--- OUTSIDE RECORDS SUMMARY | 2021-12-08 08:48 | XMS_ITS | Encounter Summary ---
:1945 Author Organization [facility] [place] [address] Care Team Providers Name Role Phone Paxton Segura MD Primary Care Provider [phone] Encounter Details Date Type Department Care Team Description 03/03/2021 Office Visit Hematology/Oncology Taylor Leong MD [facility] DR HEMATOLOGY/[place] [address] Primary malignant at [facility], Tati LGREGORY [address] [place] [address] [place] [address] neoplasm of left [facility] [address] [place] [phone] Social History Tobacco Use Types Packs/Day Years [...] Sign Reading Time Taken Comments Blood Pressure 124/71 03/03/2021 8:38 AM EST Pulse 73 03/03/2021 8:38 AM EST Temperature 36.4 ??C (97.5 ??F) 03/03/2021 8:38 AM EST Respiratory Rate 18 03/03/2021 8:38 AM EST Oxygen Saturation 99% 03/03/2021 8:38 AM EST Inhaled Oxygen Concentration - - Weight 60.8 kg (134 lb) 03/03/2021 8:38 AM EST Height 172.1 cm (5' 7.76) 03/03/2021 8:38 AM EST Body Mass Index 20.52 03/03/2021 8:38 AM EST documented in this encounter Progress Notes Rizwan Leong MD - 03/03/2021 8:30 AM EST Images from the original note were not included[place] [address] [phone] Chandana Mcwilliams is being seen for the evaluation of lung cancer. Assessment & Plan: Chandana Mcwilliams is a 75 y.o. male patient with a past medical history significant for HTN, CAD, DM2 withminimal firsthand smoking exposure found to have a malignant pleural effusion with multiple pleural desposits s/p talc pelurodesis. Histology identified squamous cell carcinoma. PD-L1 0%. NGS did not identify actionable variants. He is being treated with first line carbo/paclitaxel/ipi/nivolumab with overall palliative intent 01.16.21 Plan: # Stage IV NSCLC - good response to initial treatment on scan as below - Labs and toxicities assessed and acceptable for ongoing treatment. - Will continue with pilimumab and nivolumab. No further chemotherapy at this juncture (which is howthe study was done) # Rash - likely immune related- improved. Did not need much oral Prednisone this go around. May flare given that this will be his 2nd dose of ipilimumab - Continue medium potency of topical # Anxiety- Still an issue- Recent increase in prozac helped somewhat as does the 0.5mg lorazepam TIDPRN. - He is going to check in with his PCP to see if he has further ideas given their long relationship.I explained that I am also happy to work on this going forward - He raised it with Dr. Bedoya of palliative care as well and it sounds like they have referred him to mental health though this is still a month away # Abnormal TFTs - elevated TSH but FT4 WNL - follow for now. # Advance Care Planning - No AD on file-will address at future visit. Rizwan Leong MD, MS 03/03/2021 Thoracic Oncology [facility] CC: MD Gisell Swartz MD HPI/Interval History/Subjective: Last seen 02/10/2021 Sx related to the chest wall discomfort No issues with the rash this go around. Took Prednisone for 2 days and then stopped. Rash continue subside Minimally present this time. Tried to go throiugh Palliative care (sees Gisell Bedoya) to get in with mental health but the appt was over a month out which seemed too far out. Has some chronic sinus issues. Still with anxiety. Did increase the prozac but it took 2 weeks to decide to go it. Taking lorazepam0.5mg TID. A colleague just and he saw her obituary and this may have caused some increased anxiety he acknowledges. No fevers Using the higher potency topicals with good success. Bowels are loose but no diarrhea Urination COVID end of May. Social History/Support Network: Home situation: . Lives in [facility]. 2 children-one in [place] and one in [place]. 3grandkids. 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 Tobacco use: Never smoker. Does have [...] 01.16.21 C1 Carbo/Pac/Ipi/Nivo 02.11.21 [id number] Nivo, carbo, paclitaxel ONCBCN ONCOLOGY (AMB) 01/16/2021 02/11/2021 Day, Cycle Day 1, Cycle 1 Day 22, Cycle 1 CARBOplatin (Paraplatin) IV 431 mg 394 mg ipilimumab (Yervoy) IV 1 mg/kg/dose = 60 mg - nivolumab (Opdivo) IV 360 mg 360 mg PACLitaxeL (Taxol) IV 200 mg/m2/dose = 336 mg 200 mg/m2/dose = 336 mg No Known Allergies Medications 03/03/21 0848 Medication Sig Taking? triamcinolone (ARISTOCORT) 0.5 % Cream Apply topically 2 times daily. Yes LORazepam (Ativan) 0.5 mg Tablet Take 1 tablet by mouth 2 times daily as needed for Anxiety. Yes naproxen sodium (ALEVE) 220 mg Capsule Take by mouth. Yes acetaminophen (Tylenol) 500 mg Tablet Take 2 tablets by mouth every 6 hours. Yes insulin lispro (HumaLOG) Insulin Pen Inject subcutaneously 3 times daily (before meals). Sliding scale Yes Jardiance 25 mg Tablet 12.5mg daily Yes Lantus Solostar U-100 Insulin pen INJECT 12 UNITS SUBCUTANEOUSLY AT BEDTIME Yes losartan (Cozaar) 50 mg Tablet TAKE 1 TABLET BY MOUTH DAILY Yes Janumet 50-1,000 mg Tablet TAKE 1 TABLET BY MOUTH TWICE DAILY Yes FLUoxetine (PROzac) 20 mg Tablet TAKE 1/2 TABLET BY MOUTH DAILY Yes valACYclovir (Valtrex) 500 mg Tablet Take by mouth as needed. As needed Yes timolol (TIMOPTIC) 0.25 % ophthalmic solution 1 drop 2 times daily. Yes latanoprost (XALATAN) 0.005 % ophthalmic solution 1 drop nightly. Yes atorvastatin (LIPITOR) 10 mg tablet 10mg, PO, Once daily Yes predniSONE (Deltasone) 10 mg Tablet Take 1 tablet by mouth daily. Patient not taking: Reported on 03/03/2021 prochlorperazine (Compazine) 10 mg Tablet Take 1 tablet by mouth every 6 hours as needed for Nausea. Patient not taking: Reported on 02/10/2021 Glucagon 1 mg Recon Soln Inject subcutaneously. I reviewed the problem list, allergies, medications, past medical history, social history and familyhistory within the EPIC encounter. Pertinent details are noted above. Pertinent positives and negative from the Review of Systems are as summarized above in the HPI. Physical Exam: Wt Readings from Last 3 Encounters: 03/03/21 60.8 kg (134 lb) 02/11/21 59.7 kg (131 lb 9.6 oz) 02/10/21 59.1 kg (130 lb 3.2 oz) Temp Readings from Last 3 Encounters: 03/03/21 36.4 ??C (97.5 ??F) (Temporal) 02/11/21 36.4 ??C (97.5 ??F) (Temporal) 02/10/21 36.2 ??C (97.2 ??F) (Temporal) BP Readings from Last 3 Encounters: 03/03/21 124/71 02/11/21 130/79 02/10/21 134/73 Pulse Readings from Last 3 Encounters: 03/03/21 73 02/11/21 70 02/10/21 69 Body surface area is 1.7 meters squared. Wt Readings from Last 3 Encounters: 03/03/21 60.8 kg (134 lb) 02/11/21 59.7 kg (131 lb 9.6 oz) 02/10/21 59.1 kg (130 lb 3.2 oz) KPS Score ECOG Grade Definition 90-100 [...] or chair ECOG 1 Physical Exam BP 124/71 (Patient Position: Sitting) Pulse 73 Temp 36.4 ??C (97.5 ??F) (Temporal) Resp 18 Ht 172.1 cm (5' 7.76) Wt 60.8 kg (134 lb) SpO2 99% BMI 20.52 kg/m?? Physical Exam Constitutional: General: Not in [...] Judgment: Judgment normal. Review of Laboratory Data: 03/03/2021 White blood cell count 6.67 hemoglobin 14.1 platelet count 222,000 absolute neutrophil count 3.73 Sodium 138 potassium 4.2 chloride 104 BUN 26 creatinine stable at 1.0 glucose 170 calcium 8.6 magnesium 2.0 total bilirubin 0.3 AST 13 ALT 15 alk phos 63 TSH increased at 5.32 from 4.15 free T4 within normal limits at 0.88 though down from 0.96 the prior 11.. White blood cell count 8.93 hemoglobin 13.9 [...] free T4 1.09 Review of Imaging Data: 02.26.21 CT (I reviewed the imaging personally which shows a response to treatment.) Review of Pathology Data: documented in this encounter Plan of Treatment Upcoming Encounters Date Type Specialty Care Team Description 12/29/2021 Office Visit Hematology and Oncology Castro Leong MD [facility] DR HEMATOLOGY/[place] [address] Maylin Monet APRN [facility] [address] [place] [address] 12/29/2021 Infusion Hematology and Oncology documented as of this encounter Visit Diagnoses Diagnosis Primary malignant neoplasm of left lower lobe of lung Malignant neoplasm of lower lobe, bronch us, or lung documented in this encounter Care Teams Dance Hall Host/Hostess Relationship Specialty Start Date End Date Paxton Segura MD PCP - General Family Medicine 12/03/[address] [place] [address] [address] [place] [address] documented as of this encounter
--- OUTSIDE RECORDS SUMMARY | 2021-12-08 08:48 | XMS_ITS | Encounter Summary ---
:1945 Author Organization [facility] [place] [address] Care Team Providers Name Role Phone Paxton Segura MD Primary Care Provider [phone] Encounter Details Date Type Department Care Team Description 12/31/2020 Hospital Encounter [facility]Ray at [facility] Eamon Gold, Mass of lower lobe [address] [facility] [address] [place]ER[place] of left lung [facility] [address] [place] [phone] [place] [address] Social History Tobacco Use Types Packs/Day Years [...] Sig Dispensed Refills Start Date End Date insulin lispro Inject subcutaneously 3 0 (HumaLOG) Insulin Pen times daily (before meals). Sliding scale Jardiance 25 mg Tablet 12.5mg daily 0 10/16/2020 Glucagon 1 mg Recon Inject subcutaneously. 0 06/20 Soln Lantus Solostar U-100 20 Units. Patient 0 021 Insulin pen stating taking 20 units at HS. losartan (Cozaar) 50 TAKE 1 TABLET BY MOUTH 0 mg Tablet DAILY Janumet 50-1,000 mg TAKE 1 TABLET BY MOUTH 0 08/21 Tablet TWICE DAILY valACYclovir (Valtrex) Take by mouth as 0 021 500 mg Tablet needed. As needed latanoprost (XALATAN) 1 drop nightly. 0 0.005 % ophthalmic solution atorvastatin (LIPITOR) 10mg, PO, Once daily 0 08/2006 10 mg tablet naproxen sodium Take by mouth. 0 09/24 (ALEVE) 220 mg Capsule acetaminophen Take 2 tablets by mouth 20 tablet 1 1 09/24/2021 (Tylenol) 500 mg every 6 hours. Tablet ibuprofen (Advil) 600 Take 1 tablet by mouth 20 tablet 0 01/06/2021 mg Tablet every 6 hours. EPINEPHrine 0.3 mg/0.3 Inject into the muscle. 0 07/28/2017 02/10/2021 mL Auto-Injector FLUoxetine (PROzac) 20 60 mg. Patient stated 0 03/24/2021 mg Tablet taking three tablets daily to equal 60 mg total daily. timolol (TIMOPTIC) 1 drop daily. 0 10/2021 0.25 % ophthalmic solution documented as of this encounter Plan of Treatment Upcoming Encounters Date Type Specialty Care Team Description 12/29/2021 Office Visit Hematology and Oncology Castro Leong MD [facility] DR HEMATOLOGY/[place] [address] Maylin Monet APRN [facility] DR HEMATOLOGY [place] [address] 12/29/2021 Infusion Hematology and Oncology documented as of this encounter Procedures Procedure Name Priority Date/Time Associated Diagnosis Comme nts XR CHEST PA AND Routine 12/31/2020 9:56 AM Mass of lower lobe Results for this LATERAL EDT of left lung procedure are i n the results section. documented in this encounter Results XR Chest PA & Lateral (Generic) (12/31/2020 9:56 AM EDT) Anatomical Region Laterality Modality Chest N/A Digital Radiography Specimen (Source) Anatomical Location Collection Method / Collectio n Time Received Time / Laterality Volume Impressions 12/31/2020 10:23 AM EDT No pneumothorax. Minimal left pleural effusion. Thank you for letting us participate in the care of this patient. ??If you are a health care provider and have any questi ons regarding this report, please contact the number below. ??For patients who have questions please contact the health child care worker that requested your imaging first. ? Electronically signed by: Gretel Barber, [facility] ([phone]), at 12/31/2020 10:23 AM Narrative 12/31/2020 10:23 AM EDT EXAMINATION: XR CHEST PA AND LATERAL (GENERIC) CLINICAL HISTORY: s/p Left VATS, pleural biopsy, talc pleurodesis TECHNIQUE: PA and lateral views of the chest COMPARISON: December 09, [address] November 20, 2020 PET/CT December 06, 2020 FINDINGS: The previously present left-sided chest tube has been removed. No pneumothorax is present. There is now a minimal left- sided pleural effusion. Calcification of the left apical pleura is unchanged. Opacification in the medial aspect of th e base of the left hemithorax is seen and corresponds in location to a mass id entified in a prior chest CT and PET/CT. Procedure Note Collin Yang MD - 12/31/2020 EXAMINATION: XR CHEST PA AND LATERAL (GE NERIC) CLINICAL HISTORY: s/p Left VATS, pleural biopsy, talc pleurodesis TECHNIQUE: PA and lateral views of the chest COMPARISON: December 09, [address] November 20, 2020 PET/CT December 06, 2020 FINDINGS: The previously present left-sided chest tube has been removed. No pneumothorax is present. There is now a minimal left- sided pleural effusion. Calcification of the left apical pleura is unchanged. Opacification in the medial aspect of th e base of the left hemithorax is seen and corresponds in location to a mass id entified in a prior chest CT and PET/CT. IMPRESSION No pneumothorax. Minimal left pleural effusion. Thank you for letting us participate in the care of this patient. If you are a health care provider and have any questi ons regarding this report, please contact the number below. For patients w ho have questions please contact the health child care worker that requested your imaging first. Electronically signed by: Gretel Barber, [facility] ([phone]), at 12/31/2020 10:23 AM Eamon Gold MD IMG DX ORDERABLES documented in this encounter Visit Diagnoses Diagnosis Mass of lower lobe of left lung documented in this encounter Care Teams Acid Painter Relationship Specialty Start Date End Date Paxton Segura MD PCP - General Family Medicine 12/03/[address] [place] [address] documented as of this encounter
--- OUTSIDE RECORDS SUMMARY | 2021-12-08 08:48 | XMS_ITS | Encounter Summary ---
:1945 Author Organization [facility] [place] [address] Care Team Providers Name Role Phone Paxton Segura MD Primary Care Provider [phone] Reason for Visit Reason Onset Date Comments Follow-up 01/27/2021 rash Encounter Details Date Type Department Care Team Description 01/27/2021 Telephone Hematology/Oncology at Mis Appiah RN Follow-up (rash) [address] [phone] Social History Tobacco Use [...] this encounter Miscellaneous Notes Telephone Encounter - Mis Perez RN - 01/27/2021 12:43 PM EST Caller: Called paola at home Relationship: Self Clarified Two Patient Identifiers: [x] Reason For Call: Follow-up (rash) Assessment/Symptom Review (onset, location, duration, what makes it better or worse, pertinent positives and negatives): Called pt and he continues with red raspberry colored rash over his body. His lips are swollen and he now has three sores on roof of mouth. He has no fever. Did have chills over weekend but none today.He is taking 25 mg benadryl at night for last three nights. He is eating and drinking fine. No issues with bowels or bladder. Review of Systems Related to Reason for Call: System POS NEG Not Applicable Head (ENT /Neuro) [] [x] [] Cardiac [] [x] [] Respiratory [] [x] [] GI [] [x] [] [] [x] [] Musculoskeletal [] [x] [] Integumentary [x] [] [] Mental Health [] [] [x] Select Specific Decision Support Tool Used: None available, provider to review Name of Guideline/Protocol Used: Dr. Leong Disposition/Plan of Care: Follow home care directions Take 30 mg prednisone daily for 5 days, take in am with food Patient/Caregiver verbalizes understanding of plan of care: Yes Patient/Caregiver agrees with plan: Yes Advised patient/caregiver to: call office back for any new or worsening symptoms If any breathing problems or swelling of tongue or throat he is to go to ER directly Patient/Caregiver demonstrates understanding via teach back: Yes documented in this encounter Plan of Treatment Upcoming Encounters Date Type Specialty Care Team Description 12/29/2021 Office Visit Hematology and Oncology Castro Leong MD [facility] DR HEMATOLOGY/[place] [address] Maylin Monet APRN [facility] [place] [address] 12/29/2021 Infusion Hematology and Oncology documented as of this encounter Visit Diagnoses Not on filedocumented in this encounter Care Teams Clutch Specialist Relationship Specialty Start Date End Date Paxton Segura MD PCP - General Family Medicine 12/03/[address] [place] [address] documented as of this encounter
--- OUTSIDE RECORDS SUMMARY | 2021-12-08 08:48 | XMS_ITS | Encounter Summary ---
:1945 Author Organization [facility] [place] [address] Care Team Providers Name Role Phone Paxton Segura MD Primary Care Provider [phone] Encounter Details Date Type Department Care Team Description 01/06/2021 Office Visit Hematology/Oncology Taylor Leong MD [facility] DR HEMATOLOGY/[place] [address] Primary [facility] [address] [place] [address] [place] [address] Malignant pleural effusion; [address] [place] [address] [place] [address] Social History Tobacco Use Types Packs/Day [...] Sign Reading Time Taken Comments Blood Pressure 127/72 01/06/2021 10:17 AM EDT Pulse 77 01/06/2021 10:17 AM EDT Temperature 36.7 ??C (98 ??F) 01/06/2021 10:17 AM EDT Respiratory Rate 17 01/06/2021 10:17 AM EDT Oxygen Saturation 99% 01/06/2021 10:17 AM EDT Inhaled Oxygen Concentration - - Weight 58.7 kg (129 lb 6.4 oz) 01/06/2021 10:17 AM EDT Height 173.5 cm (5' 8.31) 01/06/2021 10:17 AM EDT Body Mass Index 19.5 01/06/2021 10:17 AM EDT documented in this encounter Progress Notes Rizwan Leong MD - 01/06/2021 10:00 AM EDT Images from the original note were not [place] [address] [phone] Chandana Mcwilliams is being seen for the evaluation of lung cancer. Assessment & Plan: Chandana Mcwilliams is a 75 y.o. male patient with a past medical history significant for HTN, CAD, DM2 withminimal firsthand smoking exposure found to have a malignant pleural effusion with multiple pleural desposits s/p talc pelurodesis. Histology identified squamous cell carcinoma. PD-L1 0%. NGS did not identify actionable variants. I reviewed with the patient the diagnosis, imaging study results, pathology, and staging of his cancer. We discussed treatment options and the potential risks and benefits of the treatments. Discussed options given his tumor profile and options would include carboplatin/paclitaxel/pembrolizumab or based on the results of the Checkmate 9LA trial, 2 cycles of carboplatin/paclitaxel/ipilimumab/nivolumab followed by ipi/nivo alone. These have not been compared head to head. Discussed the poten tial side effects and toxicities including immune mediated toxicities fatigue, hair loss, nausea/vomiting, bowel changes, taste changes, mouth sores, neuropathy, myelosuppression with an increase risk of serious infections, need for blood transfusions, organ injury, rashes and allergic reactions amongothers. Labs reviewed and appropriate for treatment. Plan: - He has connected with palliative care which I encouraged - Plan to start carboplatin/paclitaxel/ipilimumab/nivolumab in the next 1-2 weeks. - Followup 3 weeks after that with labs for next cycle. - No AD on file-will address at future visit. Rizwan Leong MD, MS 01/06/2021 Thoracic Oncology [facility] Paxton Segura MD HPI/Interval History/Subjective: He is alone today Generally feels well. Saw Dr. Gold last week and doing well following his pleurodesis. While he still has some discomfort in his mid back near the original site of the shoulder blade he does feel that it is a bit better. He reports significant fatigue. I sleep all the time. Can go up a flight of stairs without stopping. Breathing does not limit him significantly at this time. The Aleve that he is taking helps with his current shoulder blade pain. Has some issues with chronic constipation that has been helped by metamucil. Urination is ok now though required a cath after his admission. COVID end of May. Social History/Support Network: Home situation: . Lives in [facility]. 2 children-one in [place] and one in [place]. 3grandkids. 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 Tobacco use: Never smoker. Does have some [...] p.G466A c.1397G>C TP53 p.W91* c.272G>A Treatment Course: No flowsheet data found. Patient Active Problem List Diagnosis Date Noted ??? Primary malignant neoplasm of left lower lobe of lung 12/19/2020 ??? Malignant pleural effusion 12/19/2020 ??? Pleural effusion 12/06/2020 ??? Mass of lower lobe of left lung 12/03/2020 ??? Preoperative testing 12/03/2020 ??? Pulmonary mass 12/03/2020 ??? Recurrent pleural effusion on left 12/03/2020 ??? Depressive disorder 12/02/2020 ??? Elevated PSA 12/02/2020 ??? Encounter for screening colonoscopy 12/02/2020 ??? Flatulence 12/02/2020 ??? Open-angle glaucoma 12/02/2020 ??? Herpes simplex 12/02/2020 ??? History of hemorrhoidectomy 12/02/2020 ??? Hyperlipidemia 12/02/2020 ??? Impacted cerumen of right ear 12/02/2020 ??? Irritable colon 12/02/2020 ??? Kidney stone 12/02/2020 ??? Pleural effusion, left 12/02/2020 ??? Polyp of cecum 12/02/2020 ??? Prostatism 12/02/2020 ??? Sigmoid polyp 12/02/2020 ??? Skin lesion 12/02/2020 ??? Status post inguinal hernia repair 12/02/2020 ??? Upper back pain 12/02/2020 ??? Varicose veins of lower extremity 12/02/2020 ??? Weight loss 12/02/2020 ??? Chronic sinusitis 11/22/2013 ??? Actinic keratosis 08/05/2012 ??? Diabetes mellitus 06/13/2012 Allergies Allergen Reactions ??? Venom-Honey Bee Medications 12/31/20 1052 Medication Sig Taking? naproxen sodium (ALEVE) 220 mg Capsule Take by mouth. acetaminophen (Tylenol) 500 mg Tablet Take 2 tablets by mouth every 6 hours. Patient not taking: Reported on 12/19/2020 ibuprofen (Advil) 600 mg Tablet Take 1 tablet by mouth every 6 hours. insulin lispro (HumaLOG) Insulin Pen Inject subcutaneously 3 times daily (before meals). Sliding scale Jardiance 25 mg Tablet 12.5mg daily EPINEPHrine 0.3 mg/0.3 mL Auto-Injector Inject into the muscle. Glucagon 1 mg Recon Soln Inject subcutaneously. Lantus Solostar U-100 Insulin pen INJECT 12 UNITS SUBCUTANEOUSLY AT BEDTIME losartan (Cozaar) 50 mg Tablet TAKE 1 TABLET BY MOUTH DAILY Janumet 50-1,000 mg Tablet TAKE 1 TABLET BY MOUTH TWICE DAILY FLUoxetine (PROzac) 20 mg Tablet TAKE 1/2 TABLET BY MOUTH DAILY valACYclovir (Valtrex) 500 mg Tablet Take [...] Exam: Wt Readings from Last 3 Encounters: 12/31/20 58.2 kg (128 lb 3.2 oz) 12/19/20 59 kg (130 lb) 12/11/20 55.9 kg (123 lb 3.2 oz) Temp Readings from Last 3 Encounters: 12/31/20 36.2 ??C (97.2 ??F) (Temporal) 12/19/20 36.2 ??C (97.2 ??F) (Temporal) 12/11/20 36.9 ??C (98.4 ??F) (Oral) BP Readings from Last 3 Encounters: 12/31/20 126/74 12/19/20 120/66 12/11/20 116/65 Pulse Readings from Last 3 Encounters: 12/31/20 81 12/19/20 77 12/09/20 76 There is no height or weight on file to calculate BSA. Wt Readings from Last 3 Encounters: 12/31/20 58.2 kg (128 lb 3.2 oz) 12/19/20 59 kg (130 lb) 12/11/20 55.9 kg (123 lb 3.2 oz) KPS Score ECOG Grade [...] bed or chair ECOG 1 Physical Exam Constitutional: General: Not in acute [...] Judgment: Judgment normal. Review of Laboratory Data: 01/06/2021 White blood cell count 12.28 hemoglobin 14.2 platelet count 238,000 absolute neutrophil count 9.38 Sodium 139 potassium 4.3 chloride 101 BUN 22 creatinine 1.0 glucose 200 calcium 9.5 magnesium 2.3 total bilirubin 0.5 AST 13 ALT 18 alk phos 77 TSH 3.21 free T4 1.09 Review of Imaging Data: I personally reviewed the reports and images in the studies as detailed in the oncology overview above. Review of Pathology Data: I personally reviewed the reports of the pathology as detailed in the oncology overview above. documented in this encounter Plan of Treatment Upcoming Encounters Date Type Specialty Care Team Description 12/29/2021 Office Visit Hematology and Oncology Castro Leong MD [facility] HEMATOLOGY/[place] [address] Maylin Monet APRN [facility] [place] [address] 12/29/2021 Infusion Hematology and Oncology documented as of this encounter Visit Diagnoses Diagnosis Primary malignant neoplasm of left lower lobe of lung Malignant neoplasm of lower lobe, bronch us, or lung Malignant pleural effusion Medication management Encounter for long-term (current) use of other medications documented in this encounter Care Teams Master Ocean Yacht Relationship Specialty Start Date End Date Paxton Segura MD PCP - General Family Medicine 12/03/[address] [place] [address] documented as of this encounter
--- OUTSIDE RECORDS SUMMARY | 2021-12-08 08:48 | XMS_ITS | Encounter Summary ---
:1945 Author Organization [facility] [place] [address] Care Team Providers Name Role Phone Paxton Segura MD Primary Care Provider [phone] Encounter Details Date Type Department Care Team Description 01/13/2021 Clinical Support Hematology/Oncology Alycia Leong MD [facility] DR HEMATOLOGY/[place] [address] Primary malignant at [facility], Tati LGREGORY [address] [place] [address] [place] [address] neoplasm of left [address] [place] [phone] Social History Tobacco Use Types Packs/Day Years [...] Sign Reading Time Taken Comments Blood Pressure 113/67 01/13/2021 10:02 AM EDT Pulse 70 01/13/2021 10:02 AM EDT Temperature 36.4 ??C (97.5 ??F) 01/13/2021 10:02 AM EDT Respiratory Rate 20 01/13/2021 10:02 AM EDT Oxygen Saturation 99% 01/13/2021 10:02 AM EDT Inhaled Oxygen Concentration - - Weight 58.5 kg (129 lb) 01/13/2021 10:02 AM EDT Height 172.5 cm (5' 7.91) 01/13/2021 10:02 AM EDT Body Mass Index 19.66 01/13/2021 10:02 AM EDT documented in this encounter Patient Instructions Patient InstructionsTati Walden, GREGORY - 01/13/2021 10:00 AM EDT Mr. Mcwilliams presents today for education. 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 The following information was reviewed with the patient and family. Antitumor Therapy Schedule: For the first part of your treatment you will be getting infusions everythree weeks. Your infusions will run over approximately four hours. You will be getting both chemotherapy and immunotherapy. Once you complete the initial 2 months you will then receive immunotherapy and you won't be coming as often. Laboratory Tests: Prior to every treatment Provider Visits: Before each treatment you will see a doctor or NETWORK FIREWALL ENGINEER to review your labs and see how you are doing. Possible Side Effects include, but are not limited to: Carboplatin: The most common side effects include decrease in blood counts (decrease in white blood cells, red blood cells and platelets resulting in increased risk of infection, anemia and bleeding), nausea and vomiting, taste changes, hair loss, weakness, low magnesium level. Less common side effects include infusion reaction, diarrhea or constipation, mouth sores, kidney dysfunction, ringing in the ears or hearing loss, electrolyte abnormalities. Paclitaxel (Taxol): The most common potential side effects include: Decrease in blood counts (decrease in white blood cells, red blood cells and platelets, resulting in increased risk of infection, anemia and bleeding), numbness and tingling in the hands and feet, infusion reactions, nausea/vomiting, hair loss, diarrhea. Less common side effects include rash, muscle aches. Ipilimumab: Common side effects include but are not limited to fatigue, diarrhea, itching , rash, nausea/vomiting. These side effects are less common side effects: decreased appetite, constipation, cough, abdominal pain, shortness of breath, anemia, fever. A serious but uncommon side effect may be an immune- mediated reaction. When this side effect occurs, it affects primarily the bowels, liver, skin,nerves and the endocrine system Nivolumab: side effects include but are not limited to low blood counts (decrease in red blood cells, resulting in anemia), fatigue, infusion reaction, skin reactions or rash (redness, blistering, peeling or loosening of the skin, including inside the mouth), increased liver enzymes, constipation or diarrhea, shortness of breath, nausea, vomiting, swelling, itching, electrolyte abnormalities, dizziness, joint or muscle pain, thyroid dysfunction, headaches. A serious but uncommon side effect may be an immune-mediated reaction. When this side effect occurs, it affects primarily the bowels, liver, skin, nerves and the endocrine system. Medications: the following prescriptions should be picked up before starting treatment You should have a prescription for prochlorperazine(Compazine) that was sent to your pharmacy on 01/06/21. You can take this for nausea or vomiting every 6 hours if needed. You can also use this medication to PREVENT nausea by taking one in the morning and at bedtime the first few days after your treatment. It is a good idea to have something on hand in case you have constipation- we find Senokot tablets or Miralax work well. You should also have some imodium on hand for diarrhea but call us before you use this. documented in this encounter Progress Notes Tati Walden APRN - 01/13/2021 10:00 AM EDT Hematology & Medical Oncology [address] [address] Mr. Mcwilliams presents today for education. 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 The following information was reviewed with Mr. Mcwilliams and his Jasmin. Antitumor Therapy Schedule: For the first part of your treatment you will be getting infusions everythree weeks. Your infusions will run over approximately four hours. You will be getting both chemotherapy and immunotherapy. Once you complete the initial 2 months you will then receive immunotherapy and you won't be coming as often. Laboratory Tests: Prior to every treatment- plan to be at [facility] for labs one hour prior to your appointment.DECORATOR LIGHTING FIXTURES Provider Visits: Before each treatment you will see Dr. Leong or Tati to review your labs and see how you are doing. Possible Side Effects include, but are not limited to: Carboplatin: The most common side effects include decrease in blood counts (decrease in white blood cells, red blood cells and platelets resulting in increased risk of infection, anemia and bleeding), nausea and vomiting, taste changes, hair loss, weakness, low magnesium level. Less common side effects include infusion reaction, diarrhea or constipation, mouth sores, kidney dysfunction, ringing in the ears or hearing loss, electrolyte abnormalities. Paclitaxel (Taxol): The most common potential side effects include: Decrease in blood counts (decrease in white blood cells, red blood cells and platelets, resulting in increased risk of infection, anemia and bleeding), numbness and tingling in the hands and feet, infusion reactions, nausea/vomiting, hair loss, diarrhea. Less common side effects include rash, muscle aches. Ipilimumab: Common side effects include but are not limited to fatigue, diarrhea, itching , rash, nausea/vomiting. These side effects are less common side effects: decreased appetite, constipation, cough, abdominal pain, shortness of breath, anemia, fever. A serious but uncommon side effect may be an immune- mediated reaction. When this side effect occurs, it affects primarily the bowels, liver, skin,nerves and the endocrine system Nivolumab: side effects include but are not limited to low blood counts (decrease in red blood cells, resulting in anemia), fatigue, infusion reaction, skin reactions or rash (redness, blistering, peeling or loosening of the skin, including inside the mouth), increased liver enzymes, constipation or diarrhea, shortness of breath, nausea, vomiting, swelling, itching, electrolyte abnormalities, dizziness, joint or muscle pain, thyroid dysfunction, headaches. A serious but uncommon side effect may be an immune-mediated reaction. When this side effect occurs, it affects primarily the bowels, liver, skin, nerves and the endocrine system. Medications: the following prescriptions should be picked up before starting treatment You should have a prescription for prochlorperazine(Compazine) that was sent to your pharmacy on 01/06/21. You can take this for nausea or vomiting every 6 hours if needed. You can also use this medication to PREVENT nausea by taking one in the morning and at bedtime the first few days after your treatment. It is a good idea to have something on hand in case you have constipation- we find Senokot tablets or Miralax work well. You should also have some imodium on hand for diarrhea but call us before you use this. Plan: Mr. Mcwilliams was given written information regarding treatment regimen, side effects and management strategies. We reviewed side effects of medication, symptom management, how and when to call clinic, home safety and emergency procedures. Mr. Mcwilliams was given an opportunity to ask questions and verbalized understanding of the information and treatment plan. No barriers to learning were identified. Mr. Mcwilliams was counseled on how to call for any further questions or concerns. ??? Treatment is scheduled to begin on 01/16/21 at 9:30 am. ??? Testing/Diagnostics o He will have labs done on 01/16 prior to treatment. ??? Supportive Care: Supportive Gena- she has had breast cancer in the past. ??? Fertility: N/A ??? Smoking cessation: N/A ??? Advance Directives: He has completed his advance directives. Plan is to use ACT 39. He is working on this with his PCP. He has a referral to Palliative Care. ??? Psychosocial: Understands his disease and prognosis. He is making plans. Appears to be coping well. ??? Follow up: Return to clinic on for D1C1. He will need labs on - CBC,CMP, TSH, FT4 for baseline. 30 minutes of this 30 minute face to face encounter was spent in counseling, education and coordination of care. Mr. Mcwilliams voiced understanding of the plan and was given an opportunity to ask questions which I answered to the best of my ability.Mr. Mcwilliams understands he can call the clinic between visits with any questions/concerns or new symptoms. Tati Walden MSN, DECORATOR LIGHTING FIXTURES, AOCNP Medical Oncology documented in this encounter Plan of Treatment Upcoming Encounters Date Type Specialty Care Team Description 12/29/2021 Office Visit Hematology and Oncology Castro Leong MD [facility] DR HEMATOLOGY/[place] [address] Maylin Monet APRN [facility] [place] [address] 12/29/2021 Infusion Hematology and Oncology documented as of this encounter Visit Diagnoses Diagnosis Primary malignant neoplasm of left lower lobe of lung Malignant neoplasm of lower lobe, bronch us, or lung documented in this encounter Care Teams Formula Room Worker Relationship Specialty Start Date End Date Paxton Segura MD PCP - General Family Medicine 12/03/[address] [place] [address] [address] [place] [address] documented as of this encounter
--- OUTSIDE RECORDS SUMMARY | 2021-12-08 08:48 | XMS_ITS | Encounter Summary ---
:1945 Author Organization [facility] [place] [address] Care Team Providers Name Role Phone Paxton Segura MD Primary Care Provider [phone] Encounter Details Date Type Department Care Team Description 03/03/2021 Notes Only Hematology/Oncology at [facility] OFFICE OF CARE [address] [place] [phone] Social History Tobacco Use Types Packs/Day Years [...] encounter Progress Notes Delia Stewart MSW - 03/03/2021 10:15 AM EST Follow up with pt during his infusion visit today. Pt reports he is doing fairly well. He is challenged by his anxiety and depression. He indicated medication and support are most helpful and he has both in place. Keeping active and busy also helps pt. His continues as his primary support at home. Pt talked about the of a long time colleague. Offered support. Pt did not identify any new needs today. Reminded pt of SALES ACCOUNT REPRESENTATIVE availability and contact information. Will follow for support and resources. Brief assessment Supportive Counseling documented in this encounter Plan of Treatment Upcoming Encounters Date Type Specialty Care Team Description 12/29/2021 Office Visit Hematology and Oncology Castro Leong MD [facility] DR HEMATOLOGY/[place] [address] Maylin Monet APRN [facility] [place] [address] 12/29/2021 Infusion Hematology and Oncology documented as of this encounter Visit Diagnoses Not on filedocumented in this encounter Care Teams Economic Consultant Relationship Specialty Start Date End Date Paxton Segura MD PCP - General Family Medicine 12/03/20 [facility] [address] [place] [address] documented as of this encounter
--- OUTSIDE RECORDS SUMMARY | 2021-12-08 08:48 | XMS_ITS | Encounter Summary ---
:1945 Author Organization [facility] [place] [address] Care Team Providers Name Role Phone Paxton Segura MD Primary Care Provider [phone] Reason for Visit Reason Onset Date Comments Follow-up 01/17/2021 Foolow up first cycl e chemotherapy Encounter Details Date Type Department Care Team Description 01/17/2021 Telephone Hematology Oncology at [facility], Follow-up ([facility] RN first cycle [address] chemotherapy) [place] [phone] Social History Tobacco Use Types [...] this encounter Miscellaneous Notes Telephone Encounter - [facility] RN - 01/17/2021 10:27 AM EDT Chandana received initial cycle of chemotherapy/immunotherapy 01/16/21. He states he is doing fine and that he feels the steroid is in full effect. He slept in naps overnight. He is not experiencing nausea. He does have an anti-emetic and is aware of how and when to use. Bowels are functioning with miralax. His glucose level was 450 and he has been adjusting his insulin. At present it is 206. We discussed monitoring this as the steroid effect will diminish over time. There is no change in his baseline tumor pain. He inquired when was the safest time to travel in the upcoming three week period. We discussed when his blood counts could be at their lowest and to try to avoid that period of time. He is due for his next cycle 02/10/21. He reiterates that he will call for any questions or concerns. Update routed to Dr. Leong. documented in this encounter Plan of Treatment Upcoming Encounters Date Type Specialty Care Team Description 12/29/2021 Office Visit Hematology and Oncology Castro Leong MD [facility] DR HEMATOLOGY/[place] [address] Maylin Monet APRN [facility] DR HEMATOLOGY [place] [address] 12/29/2021 Infusion Hematology and Oncology documented as of this encounter Visit Diagnoses Not on filedocumented in this encounter Care Teams Equity Research Associate Relationship Specialty Start Date End Date Paxton Segura MD PCP - General Family Medicine 12/03/[address] [place] [address] documented as of this encounter
--- OUTSIDE RECORDS SUMMARY | 2021-12-08 08:48 | XMS_ITS | Encounter Summary ---
:1945 Author Organization [facility] [place] [address] Care Team Providers Name Role Phone Paxton Segura MD Primary Care Provider [phone] Reason for Visit Reason Onset Date Comments Anxiety 02/05/2021 Encounter Details Date Type Department Care Team Description 02/05/2021 [facility] RN [address] [place] [phone] Social History Tobacco Use Types [...] this encounter Miscellaneous Notes Telephone Encounter - Danny Brown RN - 02/05/2021 8:37 AM EST Caller: Chandana Mcwilliams Relationship: Self Clarified Two Patient Identifiers: [x] Reason For Call: anxiety Assessment/Symptom Review (onset, location, duration, what makes it better or worse, pertinent positives and negatives): Pt report feelings of axiety which is not like him. His last chemotherapy treatment was 01/16/21 and he stopped steroids which we thought were contributing to his anxiety on 01/30/21. He is unsure what is precipitating this anxiety. Advised he is far enough out from treatment that this may not be from his chemotherapy. He does not currently take anything for anxiety. He denies any other symptoms. Review of Systems Related to Reason for Call: System POS NEG Not Applicable Head (ENT /Neuro) [] [x] [] Cardiac [] [x] [] Respiratory [] [x] [] GI [] [x] [] [] [x] [] Musculoskeletal [] [x] [] Integumentary [] [x] [] Mental Health [x] [] [] Select Specific Decision Support Tool Used: Telephone Triage for Oncology Nurses, 3rd Edition, ONC, [employer]ese, 2019 Name of Guideline/Protocol Used: anxiety Disposition/Plan of Care: Referred to specialty provider - will call PCP now to see what they recommend, if they do not get through to them will call back here. Will also update his provider and see ifany recommendation from oncology care team. Patient/Caregiver verbalizes understanding of plan of care: Yes Patient/Caregiver agrees with plan: Yes Advised patient/caregiver to: call office back for any new or worsening symptoms Patient/Caregiver demonstrates understanding via teach back: Yes documented in this encounter Plan of Treatment Upcoming Encounters Date Type Specialty Care Team Description 12/29/2021 Office Visit Hematology and Oncology Castro Leong MD [facility] DR HEMATOLOGY/[place] [address] Maylin Monet APRN [facility] [place] [address] 12/29/2021 Infusion Hematology and Oncology documented as of this encounter Visit Diagnoses Not on filedocumented in this encounter Care Teams Police Detention Attendant Relationship Specialty Start Date End Date Paxton Segura MD PCP - General Family Medicine 12/03/[address] [place] [address] [address] [place] [address] documented as of this encounter
--- OUTSIDE RECORDS SUMMARY | 2021-12-08 08:48 | XMS_ITS | Encounter Summary ---
:1945 Author Organization [facility] [place] [address] Care Team Providers Name Role Phone Paxton Segura MD Primary Care Provider [phone] Reason for Referral Consultation (Routine) - Closed Specialty Diagnoses / Procedures Referred By Contact Refer red To Contact Hematology and Diagnoses Primary malignant neoplasm of left lower lobe of lung Drug dermatitis Rizwan Leong MD [facility] Hem Onc Office Oncology [address] HEMATOLOGY/ONCOLOGY [place], [place] DEPT [address] [place] [address] Referral ID Status Reason Start Date Expiration Visits Visits Date Requested Authorized [id number] Closed Continuity of 04/14/2021 04/14/2022 1 1 Care Encounter Details Date Type Department Care Team Description 04/14/2021 Office Visit Hematology/Oncology Taylor Leong MD [facility] DR HEMATOLOGY/[place] [address] Primary malignant neoplasm of left lower lobe of lung[facility] [address] [place] [address] [place] [address] Drug dermatitis [address] [place] [phone] Social History Tobacco Use Types Packs/Day Years [...] Sign Reading Time Taken Comments Blood Pressure 136/73 04/14/2021 8:27 AM EST Pulse 68 04/14/2021 8:27 AM EST Temperature 36.2 ??C (97.1 ??F) 04/14/2021 8:27 AM EST Respiratory Rate 18 04/14/2021 8:27 AM EST Oxygen Saturation 100% 04/14/2021 8:27 AM EST Inhaled Oxygen Concentration - - Weight 58.2 kg (128 lb 6.4 oz) 04/14/2021 8:33 AM EST Height 172.1 cm (5' 7.76) 04/14/2021 8:27 AM EST Body Mass Index 19.66 04/14/2021 8:27 AM EST documented in this encounter Progress Notes Rizwan Leong MD - 04/14/2021 8:30 AM EST Images from the original note were not included[place] [address] [phone] Chandana Mcwilliams is being seen for the [...] 03/03/21- Continue with ipilimumab and nivolumab. # Stage IV NSCLC - good response to initial treatment on restaging -Labs and toxicities assessed and acceptable for ongoing treatment. Chandana returns today to continue immunotherapy. Having mild itching relieved with steroid cream and intermittent oral prednisone Restaging scan after dose on 2021. ( he reports- his insurance denied this for unclear reasons). # Rash - likely immune related- improved. Did not need much oral Prednisone this go around. - Continue medium potency of topical and moisturizer- prescription renewed. # Anxiety- Still an issue- Recent increase in prozac helped somewhat as does the lorazepam. Discussed the need to take a consistent dose of the SSRI and then log his lorazepam and symptoms. He would like Dr Segura to be the main prescriber and carbon capture power plant manager of his mental health regimen. - [...] at future visit. Rizwan Leong MD, MS 04/14/2021 Medical Oncology & Hematology [facility] CC: MD Gisell Swartz MD HPI/Interval History/Subjective: Last seen 03/24/2021 Eating well but a little less appetite of late. Has lost 3 lbs. Rash not as severe as with the first cycle. Has a lot of itching. Used his oral prednisone for a week (1/4 to 1/2 of a 10mg tablet) following his last. Last used a week ago. Breathing is stable. If he takes a deep breath he can feel the cancer A little worse than it was 6 weeks ago. Not painful. [place] in trying to keep up had some left sided imbalance. Only the time he's really noticed. Mood is better than the last time. Has been taking the prozac a little as he feels he needs it whch we discussed 0,5mg lorazepam 2-3x per day. COVID end of May. Social History/Support Network: Home situation: . Lives in [facility]. 2 children-one in [place] and one in [place]. 3grandkids. 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 Tobacco use: Never smoker. Does [...] carbo, paclitaxel ONCBCN ONCOLOGY (AMB) 01/16/2021 02/11/2021 03/03/2021 03/24/2021 Day, Cycle Day 1, Cycle 1 Day 22, Cycle 1 Day 1, Cycle 2 Day 22, Cycle 2 CARBOplatin (Paraplatin) IV 431 mg 394 mg - - ipilimumab (Yervoy) IV 1 mg/kg/dose = 60 mg - 1 mg/kg/dose = 60 mg - nivolumab (Opdivo) IV 360 mg 360 mg 360 mg 360 mg PACLitaxeL (Taxol) IV 200 mg/m2/dose = 336 mg 200 mg/m2/dose = 336 mg - - No Known Allergies Medications 04/14/21 0837 Medication Sig Taking? triamcinolone (ARISTOCORT) 0.5 % [...] BOTH EYES TWO TIMES A DAY Yes acetaminophen (Tylenol) 500 mg Tablet Take 2 tablets by mouth every 6 hours. Yes insulin lispro (HumaLOG) Insulin Pen Inject subcutaneously 3 times daily (before meals). Sliding scale Yes Jardiance 25 mg Tablet 12.5mg daily Yes Glucagon 1 mg Recon Soln Inject subcutaneously. Yes Lantus Solostar U-100 Insulin pen INJECT [...] mouth daily. Patient not taking: Reported on 04/14/2021 prochlorperazine (Compazine) 10 mg Tablet Take 1 tablet by mouth every 6 hours as needed for Nausea. Patient not taking: Reported on 02/10/2021 naproxen sodium (ALEVE) 220 mg Capsule Take by mouth. valACYclovir (Valtrex) 500 mg Tablet Take by mouth as needed. As needed I reviewed the problem list, allergies, medications, past medical history, social history and familyhistory within the EPIC encounter. Pertinent details are noted above. Pertinent positives and negative from the Review of Systems are as summarized above in the HPI. Physical Exam: Wt Readings from Last 3 Encounters: 04/14/21 58.2 kg (128 lb 6.4 oz) 03/24/21 60.2 kg (132 lb 12.8 oz) 03/03/21 60.8 kg (134 lb) Temp Readings from Last 3 Encounters: 04/14/21 36.2 ??C (97.1 ??F) (Temporal) 03/24/21 36.4 ??C (97.5 ??F) (Temporal) 03/03/21 36.4 ??C (97.5 ??F) (Temporal) BP Readings from Last 3 Encounters: 04/14/21 136/73 03/24/21 139/76 03/03/21 124/71 Pulse Readings from Last 3 Encounters: 04/14/21 68 03/24/21 73 03/03/21 73 Body surface area is 1.67 meters squared. Wt Readings from Last 3 Encounters: 04/14/21 58.2 kg (128 lb 6.4 oz) 03/24/21 60.2 kg (132 lb 12.8 oz) 03/03/21 60.8 kg (134 lb) KPS Score ECOG Grade Definition 90-100 [...] or chair ECOG 1 Physical Exam BP 136/73 (Patient Position: Sitting) Pulse 68 Temp 36.2 ??C (97.1 ??F) (Temporal) Resp 18 Ht 172.1 cm (5' 7.76) Wt 58.2 kg (128 lb 6.4 oz) SpO2 100% BMI 19.66 kg/m?? Physical Exam Constitutional: General: Not in [...] Judgment: Judgment normal. Review of Laboratory Data: 1.24.22 Sodium 139 potassium 4.0 chloride 103 [...] 1.09 Review of Imaging Data: 02.26.21 CT Review of Pathology Data: documented in this encounter Plan of Treatment Upcoming Encounters Date Type Specialty Care Team Description 12/29/2021 Office Visit Hematology and Oncology Castro Leong MD [facility] DR HEMATOLOGY/[place] [address] Maylin Monet APRN [facility] [place]ATOLOGY [place] [address] 12/29/2021 Infusion Hematology and Oncology Scheduled Referrals Name Type Priority Associated Diagnoses Order S chedule Referral to Outpatient Referral Routine Primary malignant Ord ered: Nutrition Services neoplasm of left 04/14 lower lobe of christal ng Drug dermatitis documented as of this encounter Visit Diagnoses Diagnosis Primary malignant neoplasm of left lower lobe of lung Malignant neoplasm of lower lobe, bronch us, or lung Drug dermatitis Dermatitis due to drugs and medicines dipika knox internally documented in this encounter Care Teams Latin Professor Relationship Specialty Start Date End Date Paxton Segura MD PCP - General Family Medicine 12/03/[address] [place] [address] documented as of this encounter
--- OUTSIDE RECORDS SUMMARY | 2021-12-08 08:48 | XMS_ITS | Encounter Summary ---
:1945 Author Organization [facility] [place] [address] Care Team Providers Name Role Phone Paxton Segura MD Primary Care Provider [phone] Reason for Visit Reason Onset Date Comments Medication Reaction 01/28/2021 from prednisone Encounter Details Date Type Department Care Team Description 01/28/2021 Telephone Hematology/Oncology at [facility] ation Reaction [facility] Danny Mai RN (from prednisone) [address] [place] [phone] Social History Tobacco Use Types Packs/Day [...] Telephone Encounter - Danny Brown RN - 01/28/2021 10:46 AM EST Called and spoke with Chandana Mcwilliams regarding stopping prednisone. He will take 15 mg daily today and tomorrow then stop as long as his rash continues to improve. He is in agreement with plan and will call with any further concerns. ----- Message from Rizwan Leong MD sent at 01/28/2021 10:28 AM EST ----- Regarding: RE: re rash and pred Its a short course so don't need to wean it necessarily. He can take 15mg today and tomorrow and seeif that's doable for him and as long as the rash is improving he can stop after taht. A ----- Message ----- From: Danny Brown RN Sent: 01/28/2021 9:51 AM EST To: Rizwan Leong MD Subject: re rash and pred Pt called to report feelings of panic and anxiety after taking 2nd dose 30 mg prednisone for rash (he took first dose last night then 2nd this AM). He said these feelings of panic are very unlike him. He believes his rash is improved, his lips swelling has lessened. He would like to avoid prednisone. Explained we usually wean people off. He is willing to take half dose but really does not seem to tolerate prednisone. Please advise, thanks! A-L documented in this encounter Plan of Treatment Upcoming Encounters Date Type Specialty Care Team Description 12/29/2021 Office Visit Hematology and Oncology Castro Leong MD [facility] DR HEMATOLOGY/[place] [address] Maylin Monet APRN [facility] [address] [place] [address] 12/29/2021 Infusion Hematology and Oncology documented as of this encounter Visit Diagnoses Not on filedocumented in this encounter Care Teams Radiology Director Relationship Specialty Start Date End Date Paxton Segura MD PCP - General Family Medicine 12/03/[address] [place] [address] documented as of this encounter
--- OUTSIDE RECORDS SUMMARY | 2021-12-08 08:48 | XMS_ITS | Encounter Summary ---
:1945 Author Organization [place] [place] [address] Care Team Providers Name Role Phone Paxton Segura MD Primary Care Provider [phone] Encounter Details Date Type Department Care Team Description 12/27/2020 Telephone Hematology and Oncology [place] [phone] Social History Tobacco Use Types Packs/Day Years [...] this encounter Miscellaneous Notes Telephone Encounter - Inna Vela RN - 12/27/2020 7:55 AM EDT Follow-up: F/U on [facility] results. Sent 12/19 Call placed to Kandi Arias and spoke to Joan who states his results were faxed yesterday. Reviewed we did not receive them and asked her to please fax again. She has done this. [facility] results received and Dr. Leong notified. documented in this encounter Plan of Treatment Upcoming Encounters Date Type Specialty Care Team Description 12/29/2021 Office Visit Hematology and Oncology Castro Leong MD [facility] DR HEMATOLOGY/[place] [address] Maylin Monet APRN [facility] [place]OLOGY [place] [address] 12/29/2021 Infusion Hematology and Oncology documented as of this encounter Visit Diagnoses Not on filedocumented in this encounter Care Teams Thai Masseur Relationship Specialty Start Date End Date Paxton Segura MD PCP - General Family Medicine 12/03/[address] [place] [address] documented as of this encounter
--- OUTSIDE RECORDS SUMMARY | 2021-12-08 08:48 | XMS_ITS | Encounter Summary ---
:1945 Author Organization [facility] [place] [address] Care Team Providers Name Role Phone Paxton Segura MD Primary Care Provider [phone] Reason for Referral Diagnostic Test (Routine) - Pending Review Specialty Diagnoses / Procedures Referred By Contact Refer red To Contact Radiology Diagnoses Primary malignant neoplasm of left lower lobe of lung Rizwan Leong MD [facility] Rad Ct Scan Procedures CT Chest w Contrast [facility] HEMATOLOGY/[place] [address] [place] [address] Referral ID Status Reason Start Expiration Visits Visits Date Date Requested Authorized [id number] Pending Specialty 08/10/2022 1 1 Review Service 1 Requested Encounter Details Date Type Department Care Team Description 02/10/2021 Office Visit Hematology/Oncology Rizwan Leong, Pr imary malignant neoplasm of left lower lobe of lung (Primary Dx); at [facility] Dysuria; [address] [place] [address] Drug dermatitis; [place], [place] DR [address] [phone] HEMATOLOGY/ONCOLOGY [phone] DEPT [place], [place] [address] (Wo rk) Social History Tobacco [...] Sign Reading Time Taken Comments Blood Pressure 134/73 02/10/2021 8:06 AM EST Pulse 69 02/10/2021 8:06 AM EST Temperature 36.2 ??C (97.2 ??F) 02/10/2021 8:06 AM EST Respiratory Rate 16 02/10/2021 8:06 AM EST Oxygen Saturation 100% 02/10/2021 8:06 AM EST Inhaled Oxygen Concentration - - Weight 59.1 kg (130 lb 3.2 oz) 02/10/2021 8:06 AM EST Height 172.1 cm (5' 7.76) 02/10/2021 8:06 AM EST Body Mass Index 19.94 02/10/2021 8:06 AM EST documented in this encounter Patient Instructions Patient InstructionsRizwan Leong MD - 02/10/2021 8:00 AM EST I am encouraged overall by how things are going but we will need to make some adjustments to try andcontinue the treatment but minimize the risks and side effects. Therefore our plan will be: - Please submit a urinalysis today to make sure you don't have a UTI - Please increase your PROZAC to 20mg each day - Continue the lorazepam for your anxiety. Try to limit it to 1 or 2 pills per day - On Wednesday start low dose of Prednisone 10mg each morning to try and prevent the rash from flaring as badly - Use a more potent triamcinolone topical if there are itchy or problematic areas - We will get a CT of the Chest at [facility] in 2 weeks - We'll see you in 3 weeks to review the results and consider the dose of treatment. documented in this encounter Progress Notes Rizwan Leong MD - 02/10/2021 8:00 AM EST Images from the original note were not included[place] [address] [phone] Chandana Mcwilliams is being seen for the [...] first line carbo/paclitaxel/ipi/nivolumab with overall palliative intent Plan: # Stage IV NSCLC - Labs and toxicities assessed and acceptable for ongoing treatment. - Restage after this cycle - Continue with D22 # Rash - likely immune related - Increase potency of topicals - Standing Prednisone 10mg QD # Anxiety - Discussed ptoential problems with lorazepam and need for caution but would continue them for now - Increase prozac to 20mg QD # Abnormal TFTs - elevated TSH but FT4 WNL - follow for now. # Advance Care Planning - No AD on file-will address at future visit. Rizwan Leong MD, MS 02/10/2021 Thoracic Oncology [facility] Paxton Segura MD Patient Instructions I am encouraged overall by how things are going but we will need to make some adjustments to try andcontinue the treatment but minimize the risks and side effects. Therefore our plan will be: - Please submit a urinalysis today to make sure you don't have a UTI - Please increase your PROZAC to 20mg each day - Continue the lorazepam for your anxiety. Try to limit it to 1 or 2 pills per day - On Wednesday start low dose of Prednisone 10mg each morning to try and prevent the rash from flaring as badly - Use a more potent triamcinolone topical if there are itchy or problematic areas - We will get a CT of the Chest at [facility] in 2 weeks - We'll see you in 3 weeks to review the results and consider the dose of treatment. HPI/Interval History/Subjective: Last seen 01/13/2021 Rash on trunk and legs and very pruritic and bright red. 8 days after his infusion on 01/24. Nothing in the mouth. Used OTC 0.1% Had a low grade temp 99-never Rash responded to the steroids and time but the higher dose of 30mg made him feel really edgy and poorly. Dropped it to 15mg and then ended up stopping it after 5 days. No hx of anxiety. Has been on Prozac for 20 years for depression but Lorazepam helped with the anxiety. Did not get overly groggy or dopey. Took 3 the first day and then 2 for a few days and 1 yesterday. Sleeping ok. Has an unusual sleep pattern he notes- often goes to bed 7PM and ny his own acknowledgement has very poor sleep habits where he wakes up and watched youtube. Sensation on the left side of his chest is better When he takes a deep breath now it doesn't hurt as much when he does so.. Not needing Aleve at all. No Tylenol.. Ravenous. Gained 1 lbs. Bowels are very loose but feels this was from taking too much laxatives. Has had some burning with urination and discomfort for the past 5 weeks. Urination is ok now though required a cath after his admission. COVID end of May. Social History/Support Network: Home situation: . Lives in [facility]. 2 children-one in [place] and one in [place]. 3grandkids. 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 Tobacco use: Never smoker. Does have [...] p.W91* c.272G>A Treatment Course: 01.16.21 C1 Carbo/Pac/Ipi/Nivo ONCBCN ONCOLOGY (AMB) 01/16/2021 Day, Cycle Day 1, Cycle 1 CARBOplatin (Paraplatin) IV 431 mg ipilimumab (Yervoy) IV 1 mg/kg/dose = 60 mg nivolumab (Opdivo) IV 360 mg PACLitaxeL (Taxol) IV 200 mg/m2/dose = 336 mg Patient Active Problem List Diagnosis Date Noted ??? Medication management 01/06/2021 ??? Primary malignant neoplasm of left lower [...] Actinic keratosis 08/05/2012 ??? Diabetes mellitus 06/13/2012 No Known Allergies Medications 01/16/21 1441 Medication Sig Taking? LORazepam (Ativan) 0.5 mg Tablet Take 1 tablet by mouth 2 times daily as needed for Anxiety. Yes insulin lispro (HumaLOG) Insulin Pen Inject [...] TAKE 1/2 TABLET BY MOUTH DAILY Yes timolol (TIMOPTIC) 0.25 % ophthalmic [...] hours. Patient not taking: Reported on 12/19/2020 Glucagon 1 mg Recon Soln Inject subcutaneously. [...] Exam: Wt Readings from Last 3 Encounters: 02/10/21 59.1 kg (130 lb 3.2 oz) 01/16/21 58.7 kg (129 lb 6.4 oz) 01/13/21 58.5 kg (129 lb) Temp Readings from Last 3 Encounters: 02/10/21 36.2 ??C (97.2 ??F) (Temporal) 01/16/21 36.3 ??C (97.3 ??F) (Temporal) 01/13/21 36.4 ??C (97.5 ??F) (Temporal) BP Readings from Last 3 Encounters: 02/10/21 134/73 01/16/21 126/64 01/13/21 113/67 Pulse Readings from Last 3 Encounters: 02/10/21 69 01/16/21 68 01/13/21 70 Body surface area is 1.68 meters squared. Wt Readings from Last 3 Encounters: 02/10/21 59.1 kg (130 lb 3.2 oz) 01/16/21 58.7 kg (129 lb 6.4 oz) 01/13/21 58.5 kg (129 lb) KPS Score ECOG Grade Definition 90-100 [...] or chair ECOG 1 Physical Exam BP 134/73 (Patient Position: Sitting) Pulse 69 Temp 36.2 ??C (97.2 ??F) (Temporal) Resp 16 Ht 172.1 cm (5' 7.76) Wt 59.1 kg (130 lb 3.2 oz) SpO2 100% BMI 19.94 kg/m?? Constitutional: Oriented to person, place, and time. Appears well-developed. No distress. Mouth/Throat: Oropharynx is clear and moist. No oropharyngeal exudate. No scleral icterus. Eyes: Anicteric. Cardiovascular: Regular rate and regular rhythm. Exam reveals no friction rub. No murmur heard. Pulmonary/Chest: Normal respiratory effort. Lung clear to ascultation bilaterally. No wheezes or rales. Abdominal: +BS. Soft. No distension. No tenderness. No rebound. No CVA tenderness Musculoskeletal: Generally normal strength UE and LE. Normal range of motion. No edema. Lymphadenopathy: No cervical adenopathy. Neurological: Alert and oriented to person, place, and time. Grossly non-focal. Skin: Skin is warm and dry. showed a macular rash icture all over his troso Buttocks and legs but this has largely resolved. Psychiatric: Normal mood and affect. Thought content normal. Review of Laboratory Data: 02.10.21 White blood cell count 8.93 hemoglobin 13.9 [...] free T4 1.09 Review of Imaging Data: Review of Pathology Data: documented in this encounter Plan of Treatment Upcoming Encounters Date Type Specialty Care Team Description 12/29/2021 Office Visit Hematology and Oncology Castro Leong MD [facility] DR HEMATOLOGY/[place] [address] Maylin Monet APRN [facility] DR HEMATOLOGY [place] [address] 12/29/2021 Infusion Hematology and Oncology Scheduled Orders Name Type Priority Associated Diagnoses Order S chedule CT Chest w Contrast Imaging Routine Primary malignant Exp ected: 03/12/2021 neoplasm of left lower (Appr oximate), Expires: lobe of lung 02/10/2022 documented as of this encounter Visit Diagnoses Diagnosis Primary malignant neoplasm of left lower lobe of lung - Primary Malignant neoplasm of lower lobe, bronch us, or lung Dysuria Drug dermatitis Dermatitis due to drugs and medicines ta lisette internally Anxiety Anxiety state, unspecified documented in this encounter Care Teams Dimension Quarry Supervisor Relationship Specialty Start Date End Date Paxton Segura MD PCP - General Family Medicine 12/03/[address] [place] [address] documented as of this encounter
--- OUTSIDE RECORDS SUMMARY | 2021-12-08 08:48 | XMS_ITS | Encounter Summary ---
:1945 Author Organization [facility] [place] [address] Care Team Providers Name Role Phone Paxton Segura MD Primary Care Provider [phone] Reason for Visit Reason Comments Chemotherapy Cycle 1, Day 22; Nivolumab/P aclitaxol/Carbo Treatment/Therapy Plan Authorization (Routine) - Authorized Specialty Diagnoses / Procedures Referred By Contact Refer red To Contact Hematology and Diagnoses Primary malignant neoplasm of left lower lobe of lung Malignant pleural effusion Medication management Rizwan Leong MD [facility] Hem Onc Infusion Oncology Procedures [id number] HEMATOLOGY/ONCOLOGY [place], [place] DEPT [address] [place] [address] Referral ID Status Reason Start Date Expiration Date Visits V isits Requested Authorized [id number] Authorized 08/11/2021 08/11/2022 99 99 Encounter Details Date Type Department Care Team Description 02/11/2021 Infusion Hematology Oncology at [facility] management; [facility] Primary malignant neoplasm o f left lower lobe of lung; [address] [place] [address] Malignant pleural effusion [place], [place] [phone] Social History Tobacco Use [...] Sign Reading Time Taken Comments Blood Pressure 130/79 02/11/2021 9:04 AM EST Pulse 70 02/11/2021 9:04 AM EST Temperature 36.4 ??C (97.5 ??F) 02/11/2021 9:04 AM EST Respiratory Rate 18 02/11/2021 9:04 AM EST Oxygen Saturation 99% 02/11/2021 9:04 AM EST Inhaled Oxygen Concentration - - Weight 59.7 kg (131 lb 9.6 oz) 02/11/2021 9:04 AM EST Height 172.1 cm (5' 7.76) 02/11/2021 9:04 AM EST Body Mass Index 20.15 02/11/2021 9:04 AM EST documented in this encounter Progress Notes Jermain Prasad RN - 02/11/2021 9:00 AM EST INFUSION THERAPY ADMINISTRATION NOTES DIAGNOSIS: Lung cancer CYCLE #: 1, Day 22 REASON FOR VISIT: Chemo Nivolumab, Paclitaxel, carbo SUBJECTIVE Chandana Mcwilliams offers no complaints. OBJECTIVE LAB DATA: WDL for today's infusion IV ACCESS: PIV placed and removed after treatment Pre administration: Chemotherapy orders independently verified for drug name, route, and dosage per patient's height, weight and BSA by JERMAIN PRASAD, TAMMY & Onsite pharmacist. REACTIONS (DESCRIPTION, TIME, INTERVENTION AND EFFECTIVENESS) He did have slight flushing and reddened palms at the end of the paclitaxel. No other complaints. No rash/itching. ASSESSMENT Chandana Mcwilliams was awake, alert and tolerated treatment well. PLAN Return to clinic per routine. documented in this encounter Plan of Treatment Upcoming Encounters Date Type Specialty Care Team Description 12/29/2021 Office Visit Hematology and Oncology Castro Leong MD [facility] DR HEMATOLOGY/[place] [address] Maylin Monet APRN [facility] [place] [address] 12/29/2021 Infusion Hematology and Oncology documented as [...] Dose Rate Site aprepitant (CINVANTI) injection Given 02/11/2021 9:37 AM EST 130 mg Emul 130 mg 130 mg, Intravenous, ONCE, 1 dose, On Wed02/11/21 at 0930, Alternative administration of IV push over 2 minutes is a recommendation from the radioactive waste disposal dispatcher. Administer prior to chemotherapy., Routine CARBOplatin (Paraplatin) 394 mg New Bag 02/11/2021 2:15 PM EST 394 mg 578.8 mL/hr in dextrose 5% 289.4 mL infusion 394 mg (Target AUC = 5), Intravenous, ONCE, 1 dose, On Wed02/11/21 at 1030, Administer over 30 Minutes, Warning Vesicant/Irritant Medication dexamethasone (Decadron) injection 10 mg Given 02/11/2021 9:36 AM EST 10 mg 10 mg, Intravenous, ONCE, 1 dose, On Wed02/11/21 at 0930, Administer prior to chemotherapy diphenhydrAMINE (Benadryl) capsule 25 mg Given 02/11/2021 9:36 AM EST 25 mg 25 mg, Oral, ONCE, 1 dose, On Wed02/11/21 at 0930, Routine famotidine (Pepcid) tablet 20 mg Given 02/11/2021 9:36 AM EST 20 mg 20 mg, Oral, ONCE, 1 dose, On Wed02/11/21 at 0930, Routine nivolumab (Opdivo) 360 mg in New Bag 02/11/2021 10:23 AM EST 360 m g 272 mL/hr sodium chloride 0.9% 136 mL infusion 360 mg, Intravenous, ONCE, 1 dose, On Wed02/11/21 at 1030, Administer over 30 Minutes, Flush line with NS after each dose, This agent is restricted to outpatient use. Is this drug being given as an outpatient? Yes PACLitaxeL (Taxol) 336 mg in New Bag 02/11/2021 11:05 AM EST 336 m g 202 mL/hr sodium chloride 0.9% Non-PVC 606 mL infusion 336 mg (200 mg/m2/dose ? 1.68 m2 Treatment Plan BSA from Recorded weight), Intravenous, ONCE, 1 dose, On Wed02/11/21 at 0930, Administer over 3 Hours, Warning Vesicant/Irritant Medication palonosetron (Aloxi) (0.05 mg/mL) injection Given 01/21 9:36 AM EST 0.25 mg 0.25 mg 0.25 mg, Intravenous, ONCE, 1 dose, On Wed02/11/21 at 0930, Administer over 30 seconds., Routine documented in this encounter Care Teams Contracting Engineer Relationship Specialty Start Date End Date Paxton Segura MD PCP - General Family Medicine 12/03/[address] [place] [address] documented as of this encounter
--- OUTSIDE RECORDS SUMMARY | 2021-12-08 08:48 | XMS_ITS | Encounter Summary ---
:1945 Author Organization [facility] [place] [address] Care Team Providers Name Role Phone Paxton Segura MD Primary Care Provider [phone] Encounter Details Date Type Department Care Team Description 03/24/2021 Office Visit Hematology/Oncology Taylor Leong MD [facility] DR HEMATOLOGY/[place] [address] Primary malignant at [facility], Tati LGREGORY [address] [place] [address] [place] [address] neoplasm of left [facility] [address] lower [place] [phone] Social History Tobacco Use Types Packs/Day Years [...] Sign Reading Time Taken Comments Blood Pressure 139/76 03/24/2021 8:46 AM EST Pulse 73 03/24/2021 8:46 AM EST Temperature 36.4 ??C (97.5 ??F) 03/24/2021 8:46 AM EST Respiratory Rate 16 03/24/2021 8:46 AM EST Oxygen Saturation 100% 03/24/2021 8:46 AM EST Inhaled Oxygen Concentration - - Weight 60.2 kg (132 lb 12.8 oz) 03/24/2021 8:46 AM EST Height 172.1 cm (5' 7.76) 03/24/2021 8:46 AM EST Body Mass Index 20.34 03/24/2021 8:46 AM EST documented in this encounter Progress Notes Tati Walden, OPERATIONAL RISK MANAGER - 03/24/2021 9:00 AM EST Images from the original note were not included[place] [address] [phone] Chandana Mcwilliams is being seen for the [...] to initial treatment on scan as below Chandana returns today to continue immunotherapy. Having mild itching relieved with steroid cream and intermittent oral prednisone. Labs and toxicities assessed and acceptable for ongoing treatment today. Restaging scan after dose on 2021. # Rash - likely immune related- improved. Did not need much oral Prednisone this go around. - Continue medium potency of topical- prescription renewed. # Anxiety- Still an issue- Recent increase in prozac helped somewhat as does the lorazepam. - He is following closely with his PCP - Dr. Segura and Dr. Bedoya - palliative care. He has a telehealth visit with mental health tomorrow. # Abnormal TFTs - elevated TSH but FT4 WNL - follow for now. # Advance Care Planning - No AD on file-will address at future visit. Plan: - Proceed with Nivolumab IV today. - Restaging CT scan after next dose on 2021. - Follow up visit in 3 weeks with CBC,CMP, TSH, FT4 and Ipi/Nivo infusion. Chandana voiced understanding of the plan and was given an opportunity to ask questions which I answered to the best of my ability. Chandana understands he can call the clinic between visits with any questions/concerns or new symptoms. Tati Walden MSN, OPERATIONAL RISK MANAGER, AOCNP Medical Oncology HPI/Interval History/Subjective: (03/24/21)- Chandana returns today to continue treatment for Stage IV lung cancer. He recently increased his Prozac to 60mg a day and is taking the lorazepam for his anxiety. He states he is feeling better today and feels like he is slowly crawling up. He does have a tele-health visit with mental health tomorrow. His children are visiting this month and he is planning a trip out wing next month. Denies any changes in his breathing. He still has some mild chest discomfort. He is having some itching which was a little worse in the last couple of days. He did take a dose or oral prednisone with relief. He is using the steroid cream. He took it at night and had difficulty sleeping. Recommended hetake it in the morning. No fevers, chills or signs of infection. No new headaches or vision changes.Denies any bowel issues- he usually has trouble with constipation and he feels his bowels are betteron treatment. He hasn't had to use as many laxatives. He states his appetite is good. No difficulty swallowing or mouth sores. No other focal complaints. COVID end of May. Social History/Support Network: Home situation: . Lives in [facility]. 2 children-one in [place] and one in [place]. 3grandkids. 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 Tobacco use: Never smoker. Does have [...] paclitaxel ONCBCN ONCOLOGY (AMB) 01/16/2021 02/11/2021 03/03/2021 Day, Cycle Day 1, Cycle 1 Day 22, Cycle 1 Day 1, Cycle 2 CARBOplatin (Paraplatin) IV 431 mg 394 mg - ipilimumab (Yervoy) IV 1 mg/kg/dose = 60 mg - 1 mg/kg/dose = 60 mg nivolumab (Opdivo) IV 360 mg 360 mg 360 mg PACLitaxeL (Taxol) IV 200 mg/m2/dose = 336 mg 200 mg/m2/dose = 336 mg - No Known Allergies Medications 03/24/21 0854 Medication Sig Taking? predniSONE (Deltasone) 10 mg [...] DAILY Yes FLUoxetine (PROzac) 20 mg Tablet 60 mg. Patient stated taking three tablets daily to equal 60 mg total daily. Yes timolol (TIMOPTIC) 0.25 % ophthalmic solution 1 drop 2 times daily. Yes latanoprost (XALATAN) 0.005 % ophthalmic solution 1 drop nightly. Yes atorvastatin (LIPITOR) 10 mg tablet 10mg, PO, Once daily Yes prochlorperazine (Compazine) 10 mg Tablet Take 1 tablet by mouth every 6 hours as needed for Nausea. Patient not taking: Reported on 02/10/2021 valACYclovir (Valtrex) 500 mg Tablet Take by mouth as needed. As needed I reviewed the problem list, allergies, medications, past medical history, social history and familyhistory within the EPIC encounter. Pertinent details are noted above. Pertinent positives and negative from the Review of Systems are as summarized above in the HPI. Physical Exam: Wt Readings from Last 3 Encounters: 03/24/21 60.2 kg (132 lb 12.8 oz) 03/03/21 60.8 kg (134 lb) 02/11/21 59.7 kg (131 lb 9.6 oz) Temp Readings from Last 3 Encounters: 03/24/21 36.4 ??C (97.5 ??F) (Temporal) 03/03/21 36.4 ??C (97.5 ??F) (Temporal) 02/11/21 36.4 ??C (97.5 ??F) (Temporal) BP Readings from Last 3 Encounters: 03/24/21 139/76 03/03/21 124/71 02/11/21 130/79 Pulse Readings from Last 3 Encounters: 03/24/21 73 03/03/21 73 02/11/21 70 Body surface area is 1.7 meters squared. Wt Readings from Last 3 Encounters: 03/24/21 60.2 kg (132 lb 12.8 oz) 03/03/21 60.8 kg (134 lb) 02/11/21 59.7 kg (131 lb 9.6 oz) KPS [...] or chair ECOG 1 Physical Exam BP 139/76 (Patient Position: Sitting) Pulse 73 Temp 36.4 ??C (97.5 ??F) (Temporal) Resp 16 Ht 172.1 cm (5' 7.76) Wt 60.2 kg (132 lb 12.8 oz) SpO2 100% BMI 20.34 kg/m?? Physical Exam Constitutional: General: Not in [...] Judgment: Judgment normal. Review of Laboratory Data: 03/24/21- WBC-7.43 Hgb/Hct-14.3/44.3 Plt-222 ANC-4.47 Na-136 K+-4.1 [...] free T4 1.09 Review of Imaging Data: 12.8.21 CT (I reviewed the imaging personally which shows a response to treatment.) Review of Pathology Data: documented in this encounter Plan of Treatment Upcoming Encounters Date Type Specialty Care Team Description 12/29/2021 Office Visit Hematology and Oncology Castro Leong MD [facility] DR HEMATOLOGY/[place] [address] Maylin Monet APRN [facility] DR HEMATOLOGY [place] [address] 12/29/2021 Infusion Hematology and Oncology documented as of this encounter Visit Diagnoses Diagnosis Primary malignant neoplasm of left lower lobe of lung Malignant neoplasm of lower lobe, bronch us, or lung documented in this encounter Care Teams Locator Specialist Relationship Specialty Start Date End Date Paxton Segura MD PCP - General Family Medicine 12/03/[address] [place] [address] documented as of this encounter
--- OUTSIDE RECORDS SUMMARY | 2021-12-08 08:48 | XMS_ITS | Encounter Summary ---
:1945 Author Organization [facility] [place] [address] Care Team Providers Name Role Phone Paxton Segura MD Primary Care Provider [phone] Encounter Details Date Type Department Care Team Description 01/27/2021 Orders Only Hematology/Oncology Rizwan Leong, Pr imary malignant neoplasm of left lower lobe of lung; at [facility] Drug dermatitis [address] [place] [phone] HEMATOLOGY/ONCOLOGY [phone] DEPT [place], [place] [address] (Wo rk) Social History Tobacco [...] Castro Leong MD [facility] HEMATOLOGY/[place] [address] Maylin Monet APRN [facility] DR [place] [address] 12/29/2021 Infusion Hematology and Oncology documented as of this encounter Visit Diagnoses Diagnosis Primary malignant neoplasm of left lower lobe of lung Malignant neoplasm of lower lobe, bronch us, or lung Drug dermatitis Dermatitis due to drugs and medicines ta lisette internally documented in this encounter Care Teams Scrap Drop Engineer Relationship Specialty Start Date End Date Paxton Segura MD PCP - General Family Medicine 12/03/[address] [place] [address] [address] [place] [address] documented as of this encounter
--- OUTSIDE RECORDS SUMMARY | 2021-12-08 08:48 | XMS_ITS | Encounter Summary ---
:1945 Author Organization [facility] [place] [address] Care Team Providers Name Role Phone Paxton Segura MD Primary Care Provider [phone] Encounter Details Date Type Department Care Team Description 12/19/2020 Telephone Hematology and Oncology at Antonio Whittaker cia, [place] [address] Social History Tobacco Use Types Packs/Day Years [...] this encounter Miscellaneous Notes Telephone Encounter - Argentina Whittaker, RN - 12/19/2020 2:00 PM EDT Request from provider: Arrange for pt to get [employer] testing when in clinic today. Met with pt in clinic. [employer] requisition completed & labs drawn. Sent via Fedex to [employer]. Will f/u on results next week. documented in this encounter Plan of Treatment Upcoming Encounters Date Type Specialty Care Team Description 12/29/2021 Office Visit Hematology and Oncology Castro Leong MD [facility] DR HEMATOLOGY/[place] [address] Maylin Monet APRN [facility] [place] [address] 12/29/2021 Infusion Hematology and Oncology documented as of this encounter Visit Diagnoses Not on filedocumented in this encounter Care Teams Goodyear Stitcher Relationship Specialty Start Date End Date Paxton Segura MD PCP - General Family Medicine 12/03/20 [facility] [address] [place] [address] documented as of this encounter
--- OUTSIDE RECORDS SUMMARY | 2021-12-08 08:48 | XMS_ITS | Encounter Summary ---
:1945 Author Organization [facility] [place] [address] Care Team Providers Name Role Phone Paxton Segura MD Primary Care Provider [phone] Encounter Details Date Type Department Care Team Description 02/05/2021 Multidisciplinary Care Hematology and Lorenza Feldman Committee Oncology at [facility] TIMOTHY Pinedo HEMATOLOGY/ONCOL [id number] OGY [phone] [place] [address] Social History Tobacco Use Types Packs/Day Years [...] documented as of this encounter Progress Notes Lorenza Feldman DO - 02/05/2021 1:29 PM EST Molecular Tumor Board Note Date Presented: 02/05/2021 Presenting Physician: Dr. 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 Imaging has revealed has no evidence of extra-thoracic disease. He underwent a VATS in November of this year with talc pleurodesis and has since been started on combination systemic therapy with carboplatin/paclitaxel and ipi/nivo. A molecular panel was done as part of his diagnostic work-up that revealed both PIK3CA and non-600e BRAF mutations. Imaging: Not formally reviewed. Pathology/Histology: Moderately differentiated squamous cell carcinoma Stage: IV Molecular Pathology Results: PIK3CA p.U2356V c.1633G>A BRAF p.G466A c.1397G>C TP53 p.W91* C.272G>A Clinical Trial Availability: As below Options Discussed/Recommendations: BRAF G466A/E/V mutations are rarely seen and occur in NSCLC and melanoma. Such mutations may inactivate BRAF, are Jose-dependent and increase ERK activation (PMIDs 10496895;[id number]). Patient may be eligible for clinical trial [id number] testing ERK inhibitor (@ [facility] [place]). Also consider RTK inhibitors based on PMID: [id number]. DISCLAIMER: the patient was discussed and the tumor board made recommendations but it is ultimately up to the treatment provider(s) and the patient to determine the patient's care. Lorenza Feldman D.O. Hematology/Oncology Fellow Pager # [phone] 02/05/21, 1:30 PM documented in this encounter Plan of Treatment Upcoming Encounters Date Type Specialty Care Team Description 12/29/2021 Office Visit Hematology and Oncology Castro Leong MD [facility] DR HEMATOLOGY/[place] [address] Maylin Monet APRN [facility] HEMATOLOGY [place] [address] 12/29/2021 Infusion Hematology and Oncology documented as of this encounter Visit Diagnoses Not on filedocumented in this encounter Care Teams Material Handler 1St Shift Relationship Specialty Start Date End Date Paxton Segura MD PCP - General Family Medicine 12/03/20 [facility] [address] [place] [address] documented as of this encounter
--- OUTSIDE RECORDS SUMMARY | 2021-12-08 08:48 | XMS_ITS | Encounter Summary ---
:1945 Author Organization [facility] [place] [address] Care Team Providers Name Role Phone Paxton Segura MD Primary Care Provider [phone] Encounter Details Date Type Department Care Team Description 02/26/2021 Ancillary Procedure Radiology Library at [facility], [facility] silvina Mai [facility] [place] [address] [id number] [phone] Social History Tobacco Use Types Packs/Day Years [...] and Oncology Castro Leong MD [facility] HEMATOLOGY/[place] [address] Maylin Monet APRN [facility] [place]EMATOLOGY [place] [address] 12/29/2021 Infusion Hematology and Oncology documented as of this encounter Procedures Procedure Name Priority Date/Time Associated Diagnosis Comme nts FILM LIBRARY Routine 02/26/2021 12:00 AM Results for this STORAGE ONLY CT EST procedure ar e in CHEST the results section. documented in this encounter Results Film Library- Storage Only CT Chest (02/26/2021 12:00 AM EST) Specimen (Source) Anatomical Location Collection Method / Collectio n Time Received Time / Laterality Volume Narrative RAD - 02/27/2021 10:13 AM EST This exam is auto-finalizing. It's purpo se is for storage only. Paxton Segura MD IMG FILM LIBRARY ORDERABLES Performing Organization Address City/State/ZIP Code Phon e Number [place], [place] documented in this encounter Visit Diagnoses Not on filedocumented in this encounter Care Teams General Car Supervisor Yard Relationship Specialty Start Date End Date Paxton Segura MD PCP - General Family Medicine 12/03/[address] [place] [address] documented as of this encounter
--- OUTSIDE RECORDS SUMMARY | 2021-12-08 08:48 | XMS_ITS | Encounter Summary ---
:1945 Author Organization [facility] [place] [address] Care Team Providers Name Role Phone Paxton Segura MD Primary Care Provider [phone] Reason for Visit Reason Comments Chemotherapy Nivolumab Treatment/Therapy Plan Authorization (Routine) - Authorized Specialty Diagnoses / Procedures Referred By Contact Refer red To Contact Hematology and Diagnoses Primary malignant neoplasm of left lower lobe of lung Malignant pleural effusion Medication management Rizwan Leong MD [facility] Hem Onc Infusion Oncology Procedures [id number] [address]PD[address] HEMATOLOGY/ONCOLOGY [place], [place] DEPT [address] [place] [address] Referral ID Status Reason Start Date Expiration Date Visits V isits Requested Authorized [id number] Authorized 08/11/2021 08/11/2022 99 99 Encounter Details Date Type Department Care Team Description 03/24/2021 Infusion Hematology [facility] Primary malignant neoplasm o f left lower lobe of lung; [address] [place] [address] Malignant pleural effusion [place], [place] [phone] Social History Tobacco Use [...] documented as of this encounter Progress Notes Glo Quinn RN - 03/24/2021 9:30 AM EST INFUSION THERAPY ADMINISTRATION NOTES DIAGNOSIS: NSCLC CYCLE #: 2 Day REASON FOR VISIT: Nivolumab Infusion SUBJECTIVE Mr. Mcwilliams is here for C2D22 Nivolumab infusion. He saw Tati Walden APRN prior to infusion today. He is doing well, had good Holidays. He has no questions/concerns and is ready for treatment today. OBJECTIVE LAB DATA: Labs drawn today at [facility]. Reviewed and found adequate for treatment today. Pre administration: Chemotherapy orders independently verified for drug name, route, and dosage per patient's height, weight and BSA by Tati Quinn RN and pharmacist on-site. REACTIONS (DESCRIPTION, TIME, INTERVENTION AND EFFECTIVENESS) none ASSESSMENT Mr. Mcwilliams was awake, alert and tolerated treatment well. PLAN Return to clinic in 3 weeks for consideration of C3. Patient was reminded to call in the interim with any questions/concerns. documented in this encounter Plan of Treatment Upcoming Encounters Date Type Specialty Care Team Description 12/29/2021 Office Visit Hematology and Oncology Castro Leong MD [facility] DR HEMATOLOGY/[place] [address] Maylin Monet APRN [facility] DR HEMATOLOGY [place] [address] 12/29/2021 Infusion Hematology and Oncology documented as [...] nivolumab (Opdivo) 360 mg in New Bag 03/24/2021 10:26 AM EST 360 m g 272 mL/hr sodium chloride 0.9% 136 mL infusion 360 mg, Intravenous, ONCE, 1 dose, On Wed03/24/21 at 1100, Administer over 30 Minutes, Flush line with NS after each dose, This agent is restricted to outpatient use. Is this drug being given as an outpatient? Yes documented in this encounter Care Teams Black Top Machine Operator Relationship Specialty Start Date End Date Paxton Segura MD PCP - General Family Medicine 12/03/[address] [facility] [address] [facility] [place] [address] documented as of this encounter
--- OUTSIDE RECORDS SUMMARY | 2021-12-08 08:49 | XMS_ITS | Encounter Summary ---
:1945 [place] [address] Care Team Providers Name Role Phone Luisa Roberts MD Primary Care Provider Encounter Details Date Type Department Care Team Description 11/20/2020 Ancillary Procedure Radiology Library at Shelly Root [facility] [place] [facility] [address] [place] [address] [place] [address] [phone] Social History Tobacco Use Types Packs/Day Years Used Date Never Smoker Sex Assigned at Date Recorded Not on file documented as of this encounter Plan of Treatment Upcoming Encounters Date Type Specialty Care Team Description 12/29/2021 Office Visit Hematology and Oncology Castro Leong MD [facility] DR HEMATOLOGY/[place] [address] [facility] [place]EMATOLOGY [place] [address] 12/29/2021 Infusion Hematology and Oncology documented as of this encounter Procedures Procedure Name Priority Date/Time Associated Diagnosis Comme nts FILM LIBRARY Routine 11/20/2020 10:20 PM Results for this STORAGE ONLY CT EDT procedure ar e in CHEST the results section. documented in this encounter Results Film Library- Storage Only CT Chest (11/20/2020 10:20 PM EDT) Specimen (Source) Anatomical Location Collection Method / Collectio n Time Received Time / Laterality Volume Narrative RAD - 11/20/2020 10:20 PM EDT This exam is auto-finalizing. It's purpo se is for storage only. Sulma Root MD IMG FILM LIBRARY ORDERABLES Performing Organization Address City/State/ZIP Code Phon e Number [place], [place] documented in this encounter Visit Diagnoses Not on filedocumented in this encounter Care Teams Missile Inspector Relationship Specialty Start Date End Date Luisa Roberts MD PCP - General 08/05/12 12/02/20 [address] [place] [address] documented as of this encounter
--- OUTSIDE RECORDS SUMMARY | 2021-12-08 08:49 | XMS_ITS | Encounter Summary ---
:1945 Author Organization [facility] [place] [address] Care Team Providers Name Role Phone Paxton Segura MD Primary Care Provider [phone] Reason for Referral Consultation (Routine) - Closed Specialty Diagnoses / Procedures Referred By Contact Refer red To Contact Hematology and Diagnoses Pulmonary mass Adama Butler, [facility] [place], [place] Hem Onc [address] [facility] THORACIC SURGERY [place] [phone] Fax: Referral ID Status Reason Start Date Expiration Date Visits V isits Requested Authorized [id number] Closed Consult, 12/11/2020 12/11/2021 1 1 Test & Treat Reason for Visit Auth/Cert Specialty Diagnoses / Procedures Referred By Contact Refer red To Contact Diagnoses Pleural effusion effusion and masses . Procedures PRO THORACOSCOPY SURG W/PLEURODESIS PRO BRONCHOSCOPY, DIAGNOSTIC @THORACOSCOPY, SURG; W PLEURODESIS (WRVU 10.83) BRONCHOSCOPY, DIAGNOSTIC (WRVU 2.78) Referral ID Status Reason Start Date Expiration Date Visits Requ ested Visits Authorized [id number] 1 1 Encounter Details Date Type Department Care Team Description 12/09/2020 - Hospital Encounter [facility] [place] Yesy Durant, Pulmo nary mass (Primary Dx); 12/11/2020 Amy Marck PIERCE Pleural effusion, left; Hospital [facility] Mass of lower lobe of left l aryan [facility] [address] Alexis THORACIC SURGERY [place], [place] [id number] [phone] Social History Tobacco Use Types Packs/Day Years [...] Sign Reading Time Taken Comments Blood Pressure 116/65 12/11/2020 7:36 AM EDT Pulse 76 12/09/2020 12:00 PM EDT Temperature 36.9 ??C (98.4 ??F) 12/11/2020 7:36 AM EDT Respiratory Rate 16 12/11/2020 7:36 AM EDT Oxygen Saturation 93% 12/11/2020 7:36 AM EDT Inhaled Oxygen Concentration - - Weight 55.9 kg (123 lb 3.2 oz) 12/11/2020 6:49 AM EDT Height 172.2 cm (5' 7.8) 12/09/2020 6:14 AM EDT Body Mass Index 18.84 12/09/2020 6:14 AM EDT documented in this encounter Discharge Summaries Adama Butler PA - 12/09/2020 3:43 PM EDT Department of Thoracic Surgery - Discharge Summary Patient Name: Chandana Mcwilliams Patient Age: 75 y.o. Birthdate: 1945 Admit date: 12/09/2020 Discharge date: 12/11/2020 Attending Physician: Yesy Blum MD Discharge Diagnoses (Hospital Problems) and Secondary Diagnoses (Chronic Problems): Active Hospital Problems Diagnosis ??? Pleural effusion Resolved Hospital Problems No resolved problems to display. Active Non-Hospital Problems Diagnosis ??? Mass of lower lobe of left lung 7 cm mass with associated effusion ??? Preoperative testing ??? Pulmonary mass ??? Recurrent pleural effusion on left ??? Depressive disorder ??? Elevated PSA ??? Encounter for screening colonoscopy ??? Flatulence ??? Open-angle glaucoma ??? Herpes simplex ??? History of hemorrhoidectomy ??? Hyperlipidemia ??? Impacted cerumen of right ear ??? Irritable colon ??? Kidney stone ??? Pleural effusion, left ??? Polyp of cecum ??? Prostatism ??? Sigmoid polyp ??? Skin lesion ??? Status post inguinal hernia repair ??? Upper back pain ??? Varicose veins of lower extremity ??? Weight loss ??? Chronic sinusitis ??? Actinic keratosis ??? Diabetes mellitus Operations/Major Procedures: Operations: Case Date: 12/09/2020 Surgeon: Surgeon(s) and Role: * Yesy Blum MD - Primary * Adama Butler PA - Physician Neurological Physiotherapist Procedure: Procedure(s): @THORACOSCOPY, SURG; W PLEURODESIS (WRVU 10.83) BRONCHOSCOPY, DIAGNOSTIC (WRVU 2.78) NERVE BLOCK, INTERCOSTAL NERVE, MULTIPLE (WRVU 1.68) Other Major Procedures: None History of Presentation: Chandana Mcwilliams is a 75 y.o. male with recurrent left pleural effusion,??LLL mass (5.3 x 5.5 x5.7 cm) with pleural nodularities??which is concerning for malignancy with pleural involvement. Since we last saw him he had a PET/CT scan, which showed no evidence of extrathoracic disease. Hospital Course: Chandana Mcwilliams was admitted to [facility] on 12/09/2020 via the Day Program. He was brought to the operating room on 12/09/[address] Yesy Blum performed surgery as described above. He tolerated the procedure well and was brought to the Post Anesthesia Care Unit for recovery. After a brief period of time he was transferred to the floor for continued rehabilitation. Post-operatively he had urinary retention and adames catheter was placed. The left chest tube was discontinued on post operative day # 2. By postoperative day # 2 he had met all criteria for discharge to home. Pain was controlled on oral medications. He had walked 5 minutes. He was tolera ting a regular diet and had bowel sounds on exam. He has his own stringent bowel medications at homeincluding metamucil which we are unable to provide due to national shortage. Diabetes was consulted to manage his T2DM and they recommended he continue his home regiment on discharges. Vital signs: Vital Signs Temp: 36.9 ??C (98.4 ??F) Temp src: Oral Heart Rate from SpO2: 86 bpm Heart Rate: 76 Heart Rate Source: Monitor Resp: 16 BP: 116/65 MAP (NBP): 82 mmHg BP Method: Automatic Patient Position: Lying SpO2: 93 % O2 Flow Rate (L/min): 6 L/min O2 Device: None (Room air) Admission Wt: 58 kg Last Wt: Wt Readings from Last 3 Encounters: 12/11/20 55.9 kg (123 lb 3.2 oz) 12/03/20 58 kg (127 lb 12.8 oz) Pertinent physical exam findings prior to discharge: Gen: NAD, pleasant, sitting up in bed HEENT: sclerae anicteric Neck: supple, trachea midline Card: RRR, no M/R/G appreciated Pulm: Left lung sounds decreased at the base otherwise CTAB, no wheeze/ronchi/rales appreciated, non-labored breathing on RA Abd: soft, NT, BS+ Ext: warm, dry, no edema Neuro: A&Ox3, nonfocal, conversant, moving all extremities with equal strength Important Lab Data: No results found for: WBC, HGB, HCT, MCV No results found for: NA, K, CL, CO2 No results found for: CREATININE No results found for: BUN No results found for: PREALBUMIN No results for input(s): PT, PTT, INR in the last 168 hours. Studies: None Pending Studies and Lab Data: The patient will need the following 2 tests completed on: 12/03/2020 1. COVID-19 PCR 2. Hemoglobin A1c Diagnosis: Authorizing Provider: Yesy Blum MD Discharge Conditions/Prognosis: Stable Discharge to: Home Discharge Medications: Your Medications New Medications Dose Details acetaminophen 500 mg Tab Commonly known as: Tylenol Take 2 tablets by mouth every 6 hours. 1,000 mg Quantity: 20 tablet Refills: 1 ibuprofen 600 mg Tab Commonly known as: Advil Take 1 tablet by mouth every 6 hours. 600 mg Quantity: 20 tablet Refills: 0 Continued medications, unchanged Dose Details EPINEPHrine 0.3 mg/0.3 mL Atin Inject into the muscle. Refills: 0 FLUoxetine 20 mg Tab Commonly known as: PROzac TAKE 1/2 TABLET BY MOUTH DAILY Refills: 0 Glucagon 1 mg Solr Inject subcutaneously. Refills: 0 insulin lispro Inpn Commonly known as: HumaLOG Inject subcutaneously 3 times daily (before meals). Sliding scale Refills: 0 Janumet 50-1,000 mg Tab TAKE 1 TABLET BY MOUTH TWICE DAILY Generic drug: sitaGLIPtin-metFORMIN Refills: 0 Jardiance 25 mg Tab 12.5mg daily Generic drug: empagliflozin Refills: 0 Lantus Solostar U-100 Insulin 100 unit/mL (3 mL) pen INJECT 12 UNITS SUBCUTANEOUSLY AT BEDTIME Generic drug: insulin glargine Refills: 0 latanoprost 0.005 % Drop Commonly known as: Xalatan 1 drop nightly. 1 drop Refills: 0 Lipitor 10 mg Tab 10mg, PO, Once daily Generic drug: atorvastatin Refills: 0 losartan 50 mg Tab Commonly known as: Cozaar TAKE 1 TABLET BY MOUTH DAILY Refills: 0 timoloL 0.25 % Drop Commonly known as: Timoptic 1 drop 2 times daily. 1 drop Refills: 0 valACYclovir 500 mg Tab Commonly known as: Valtrex Take by mouth as needed. As needed Refills: 0 STOPPED Medications CIS FREE TEXT MED Levsin 0.125 mg Tab Generic drug: hyoscyamine lisinopriL 2.5 mg Tab Commonly known as: Zestril metFORMIN XR 500 mg Tablet sr Commonly known as: Glucophage XR Updated Allergies/ADRs: Allergies Allergen Reactions ??? Venom-Honey Bee Instructions Given to Patient at Discharge: Patient Instructions Call if you have a fever of greater than 101 degrees, shaking chills, develop redness or drainage from your incision site(s), or if you have questions. During normal business hours, Wednesday- Wednesday 8:00a.m.-5:00 p.m., please call to speak to a nurse in the Thoracic Clinic at [phone]. After hours or on weekends or holidays please call: [phone] and ask to speak to the Thoracic Surgeon personal injury legal assistant. Exercise & Activity Level: As you recover from surgery exercise at least 30 minutes a day. This can be broken up into several times a day to achieve this goal at first, but you will be able to workup to doing all 30 minutes at once. Walking, treadmill, stationary bike, elliptical machine or therestationary exercise equipment is appropriate. Take your incentive spirometer home with you. You should use this every hour while awake, 10 times each. This helps you to exercise your respiratory muscles and to breathe deeply. Taking purposeful deep breaths can be just as effective. Do not lift more than 10 pounds for 6-8 weeks (nothing heavier than a gallon of milk) unless otherwise instructed by Thoracic Surgery. Don???t exhaust yourself. Rest between activities as you recover from your procedure. Diet: You should follow a regular healthy diet. Smoking: If you are a smoker, please avoid smoking. If you are a smoker who needs help quitting, please call the thoracic surgery clinic at [phone]. Driving: No driving for 1 week or while taking narcotic pain medication. New Medications: None Shower/Bath: You may shower daily starting 2 days after chest tube removal, no bathing or swimming until your follow-up appointment. Incision care: Wash your incision(s) daily with soap and rinse well, pat dry. Assess for any signs of infection such as increased redness, pain, warmth or drainage. If you had a chest tube, you may remove the dressing over the chest tube site in 2 days after the chest tube was removed and leave it open to the air if it is not draining. Otherwise change the dressing twice a day and as needed. The dressing may remain off once there is no drainage. If you have steri-strips over an incision site, these will remain in place for 7-10 days. You may shower with them, and they will fall off naturally in 7-10 days. If they do not fall off by 10 days, you may remove them. Pain: Pain after surgery is normal. The goal is for you to be able to tolerate pain so you can complete your daily activities. You may notice a burning or numbness on the side of your incision that mayinclude your breast area. This should improve over time but there may be areas that remain numb. Youmay use a heating pad set on low or medium, over your incision to help relax the muscles in the areaand decrease discomfort. Please take your medication as prescribed. If you are not having good pain control, please call and speak to the nurse in the Thoracic Clinic or the Thoracic Surgeon personal injury legal assistant after hours. Please take over the counter Tylenol 1000mg every 6 hours and Ibuprofen 600mg every 6 hours, together as instructed, for baseline pain coverage. DO NOT exceed that maximum dosing as listed on the labels. Sleep: Try to establish normal sleep patterns. Long naps during the day may make it hard for you to sleep at night. Use the pain medication at bedtime for the first week at home if needed. Bowel Movements: After surgery, your bowel movements may not be regular for you, but you should be able to get back to your daily routine quickly. Please make sure to take the stool softeners or mild laxatives as prescribed to get back to your normal routine. If you do not have a bowel movement for more than 2 days, please call the office. Follow up appointments: You will follow up with Dr. Blum in 2 weeks with a chest Xray within one hour of the appointment. A letter will be mailed to you confirming your appointment information. No future appointments. General Instructions Hi Chandana, Please resume your home regimen exactly as before. You may have more need for the short acting (lispro,-the Humalog) for a couple more days due to stress of surgery and the steroids you received in the OR on Wednesday. My colleague we talked about perhaps having your PCP refer you to is OVI Pritchard RD (Reservations Sales Supervisor, Certified Diabetes Care and Hydrology Technician) is at [facility] for a fresh set of eyes. She has clinic in [facility] as well as [facility], and [place] [email or web address] Future Appointments and Orders Future Orders Complete By Expires XR Chest PA & Lateral (Generic) [[id number] Custom] 12/25/2020 (Approximate) 12/11/2021 Process Instructions: Scheduling Instructions: Questions: Where will study be performed?: [facility] Radiology Portable exam?: Reason for exam and clinical history: s/p Left VATS, pleural biopsy, talc pleurodesis Clinical information / rodriges questions: Stat read required?: Date of injury if applicable: Requested Time: Provider Contact Information: Primary Care Provider: Paxton Segura MD [phone] Discharge References/Attachments: Discharge References/Attachments None For questions regarding this document or issues relating to this hospitalization on the Thoracic Surgery Service, please contact Dr. Blum's office at . Signed: ZEENAT Torres 12/11/2020 CC: PCP: Paxton Segura MD Referring: Sulma Root Md [address] [place] [address] documented in this encounter Discharge Instructions Discharge InstructionsCaroline Garcia APRN - 12/11/2020 8:53 AM EDT Hi Chandana, Please resume your home regimen exactly as before. You may have more need for the short acting (lispro,-the Humalog) for a couple more days due to stress of surgery and the steroids you received in the OR on Wednesday. My colleague we talked about perhaps having your PCP refer you to is OVI Pritchard RD (Reservations Sales Supervisor, Certified Diabetes Care and Hydrology Technician) is at [facility] for a fresh set of eyes. She has clinic in [facility] as well as [facility], and [place] [email or web address] Patient InstructionsPatelAdama PA - 12/11/2020 7:50 AM EDT Call if you have a fever of greater than 101 degrees, shaking chills, develop redness or drainage from your incision site(s), or if you have questions. During normal business hours, Wednesday- Wednesday 8:00a.m.-5:00 p.m., please call to speak to a nurse in the Thoracic Clinic at [phone]. After hours or on weekends or holidays please call: [phone] and ask to speak to the Thoracic Surgeon personal injury legal assistant. Exercise & Activity Level: As you recover from surgery exercise at least 30 minutes a day. This can be broken up into several times a day to achieve this goal at first, but you will be able to workup to doing all 30 minutes at once. Walking, treadmill, stationary bike, elliptical machine or therestationary exercise equipment is appropriate. Take your incentive spirometer home with you. You should use this every hour while awake, 10 times each. This helps you to exercise your respiratory muscles and to breathe deeply. Taking purposeful deep breaths can be just as effective. Do not lift more than 10 pounds for 6-8 weeks (nothing heavier than a gallon of milk) unless otherwise instructed by Thoracic Surgery. Don???t exhaust yourself. Rest between activities as you recover from your procedure. Diet: You should follow a regular healthy diet. Smoking: If you are a smoker, please avoid smoking. If you are a smoker who needs help quitting, please call the thoracic surgery clinic at [phone]. Driving: No driving for 1 week or while taking narcotic pain medication. New Medications: None Shower/Bath: You may shower daily starting 2 days after chest tube removal, no bathing or swimming until your follow-up appointment. Incision care: Wash your incision(s) daily with soap and rinse well, pat dry. Assess for any signs of infection such as increased redness, pain, warmth or drainage. If you had a chest tube, you may remove the dressing over the chest tube site in 2 days after the chest tube was removed and leave it open to the air if it is not draining. Otherwise change the dressing twice a day and as needed. The dressing may remain off once there is no drainage. If you have steri-strips over an incision site, these will remain in place for 7-10 days. You may shower with them, and they will fall off naturally in 7-10 days. If they do not fall off by 10 days, you may remove them. Pain: Pain after surgery is normal. The goal is for you to be able to tolerate pain so you can complete your daily activities. You may notice a burning or numbness on the side of your incision that mayinclude your breast area. This should improve over time but there may be areas that remain numb. Youmay use a heating pad set on low or medium, over your incision to help relax the muscles in the areaand decrease discomfort. Please take your medication as prescribed. If you are not having good pain control, please call and speak to the nurse in the Thoracic Clinic or the Thoracic Surgeon personal injury legal assistant after hours. Please take over the counter Tylenol 1000mg every 6 hours and Ibuprofen 600mg every 6 hours, together as instructed, for baseline pain coverage. DO NOT exceed that maximum dosing as listed on the labels. Sleep: Try to establish normal sleep patterns. Long naps during the day may make it hard for you to sleep at night. Use the pain medication at bedtime for the first week at home if needed. Bowel Movements: After surgery, your bowel movements may not be regular for you, but you should be able to get back to your daily routine quickly. Please make sure to take the stool softeners or mild laxatives as prescribed to get back to your normal routine. If you do not have a bowel movement for more than 2 days, please call the office. Follow up appointments: You will follow up with Dr. Blum in 2 weeks with a chest Xray within one hour of the appointment. A letter will be mailed to you confirming your appointment information. No future appointments. documented in this encounter Medications at Time of Discharge [...] Once daily 0 08/2006 10 mg tablet acetaminophen Take 2 tablets by mouth 20 [...] ophthalmic solution documented as of this encounter Progress Notes Shirley Mccall RN - 12/11/2020 11:51 AM EDT Reviewed AVS; pt returned verbalization of discharge instructions. PIV removed. Patient left [facility] ambulatory, denied need for wheelchair or staff accompaniment). Caroline Garcia APRN - 12/11/2020 11:30 AM EDTSummary: Mr Ferguson leaving to home-POD #2; 36 hour after dexamethasone 8 mg Images from the original note were not included. . Follow Up Diabetes Consult Patient Interview In good spirits. Explained that limits of the ability of [facility] to see patients whose medical home is not them will not permit him to see our colleague Celina Melo however I will send him a link for her group classes coming up. Objective Temp: [36.9 ??C (98.4 ??F)-37.6 ??C (99.7 ??F)] Heart Rate: -- Resp: [14-16] BP: (100-119)/(57-65) SpO2: [93 %-98 %] Heart Rate from SpO2: [76 bpm-86 bpm] Current Regimen Lantus:13 units daily Lispro 1:20 insulin to carbohydrate ratio Lispro for correction q 4 hours using 1:40 correction scale Recent Glucose Levels Recent Labs 12/11/20 0735 12/11/20 0357 12/10/20 2322 12/10/20 2054 12/10/20 1849 12/10/20 1639 12/10/20 0816 12/10/20 0343 12/09/20 2315 12/09/20 1931 12/09/20 1623 12/09/20 1147 POCGLU 118 120 134 199 292* 271* 134 162 195 315* 339* 152 . Lab Results Component Value Date HA1C 7.8 (H) 12/11/2020 ASSESSMENT ?? Will send this note to PCP PLAN Please resume home meds and re-group with your PCP and home clinic pharmacist on how to proceed next. We have learned of the Ha1C after he has been seen as it was added this AM He and PCP may have a goal that they are choosing, 30 minutes of this 35 minute visit was spent with the patient in counseling on diabetes and treatment plan, reviewing all glucose and insulin data as well as relevant laboratory results with the patient, and coordination of care on the inpatient unit including nursing and primary team. Charlette Amos RN - 12/11/2020 4:42 AM EDT OUTCOME EVALUATION NOTE: OUTCOME SUMMARY: Patient AOx4, VSS on RA. Denies nausea/vomiting, CP, SOB. Pain controlled w/ scheduled medications, see MAY. CT to LCWS, dressing CDI. Patient voiding to BR w/ SBA, monitoring PVR's. LBM 12/08, PRN miralax given w/ out effect. Patient sleeping in between care. Will continue to monitor. PLAN MOVING FORWARD: Pain Control Mobilize DC planning INDIVIDUALIZED FALL PREVENTION INTERVENTIONS: Patient-specific fall risk factors per assessment: [current deficits]: CT, pain, generalized weakness, hospital environment Assistance [level of assistance required for transfers and ambulation]: SBA Supervision [direct monitoring required during toileting and ADLs]: Eyes on Surveillance [continuous indirect monitoring]: Masimo, bed alarm, safety check Patient-specific fall prevention interventions for sensory deficits provided, if applicable: [X] N/A Kim Newell RN - 12/10/2020 7:27 PM EDT I assumed care for this patient from [id number]. See MAR for medications given during this time. SeeDoc-flowsheet for my focused assessment. Report given to oncoming RN. KIM NEWELL RN Eli Garcia RN - 12/10/2020 1:48 PM EDT OUTCOME EVALUATION NOTE: ?? OUTCOME SUMMARY: ?? Patient AOx4, able to make needs known,denies pain. VSS on RA. CT to LCWS, + serosang output. CT dressing CDI. Adames DCd at noon per MD order- DTV at 1600. Patient requested suppository for BM. Patientup and ambulating- SBA. Patient resting in chair with call light in reach. Patient requested enema to do himself. ?? PLAN MOVING FORWARD: ?? Monitor CT output Pain Control Mobilize DC planning ?? INDIVIDUALIZED FALL PREVENTION INTERVENTIONS: ?? Patient-specific fall risk factors per assessment: [current deficits]: CT, hospital environment ?? Assistance [level of assistance required for transfers and ambulation]: SBA ?? Supervision [direct monitoring required during toileting and ADLs]: Eyes on ?? Surveillance [continuous indirect monitoring]: Masimo, purposeful rounding ?? Patient-specific fall prevention interventions for sensory deficits provided, if applicable: [X] N/A Adama Butler PA - 12/10/2020 8:30 AM EDT [facility] Department of Thoracic Surgery Inpatient Post Op Check Note Patient Name: Chandana Mcwilliams Patient : 1945 Patient Patient Location: [address] [place] [id number] Attending Surgeon: YESY BLUM ID: Chandana Mcwilliams is a 75 y.o. male who is 1 Day Post-Op LLL mass with pulmonary nodules and pleural effusion s/p Bronchoscopy, Left VATS, pleural biopsies, talc pleurodesis. 24 hour events - Tolerating regular diet - Hyperglycemic yesterday evening - resolved; on home diabetes regiment. - CT remains on suction Subjective: No nausea/vomiting, chest pain, SOB, pain well controlled, offers no complaints this AM. Vitals: Temp: [36.4 ??C (97.5 ??F)-37 ??C (98.6 ??F)] Heart Rate: [63-76] Resp: [9-] BP: (98-142)/(57-71) SpO2: [96 %-100 %] Heart Rate from SpO2: [63 bpm-80 bpm] Wt & BMI By Encounter Date Admission (Current) from 12/09/2020 in [facility] Office Visit from 12/03/2020 in Thoracic Surgery at [facility] Weight 58 kg (127 lb 12.8 oz) 1 12/10/2020 0619 58 kg (127 lb 12.8 oz) 1 12/03/2020 1235 BMI 19.55 1 12/09/2020 0614 19.55 1 12/03/2020 1235 Physical Exam: Gen: NAD, pleasant, sitting up in bed HEENT: sclerae anicteric Neck: supple, trachea midline Card: RRR, no M/R/G appreciated Pulm: Left lung sounds decreased compared to right otherwsie CTA, no wheeze/ronchi/rales appreciated, non-labored breathing on RA, Right CT to -20 with no airleak appreciated, incision clean, dry Abd: soft, NT, BS+ : adames in place Ext: warm, dry, no edema Neuro: A&Ox3, CN II-XII grossly intact, nonfocal, conversant I/O: I/O last 3 completed shifts: In: 1600 [P.O.:800; I.V.:800] Out: 3470 [Urine:3075; Other:385; Blood:10] Labs: Recent Results (from the past 24 hour(s)) Surgical Pathology Report Result Value Ref Range Surgical Pathology Report [id number] Location: OR; OR11; A The signing pathologist has (i) examined the relevant preparation(s) for the specimen(s) and (ii) rendered or confirmed the diagnosis(es). . Frozen Section FROZEN SECTION DIAGNOSIS FS A - Left pleural biopsy #1 for frozen section - Positive for malignancy, favor non-small cell carcinoma. FSB - Left pleural biopsy #2 for frozen section - Positive for malignancy, favor non-small cell carcinoma. 12/09/20 09:07 Electronically signed by: Rita Ibarra DO Verified: 12/09/2020 9:08 Pathologist Performed at: [facility] Dept. of Pathology, [place], [place] This intraoperative consultation should be interpreted as a preliminary diagnosis pending review of the entire specimen and special studies, if any. A final Surgical Pathology report will follow this preliminary Frozen Section report(s). Immunophenotyping Flow Cytometry Result Value Ref Range Immunophenotyping Flow See Comment Flow Cytometry Report Result Value Ref Range Flow Cytometry Report [id number] Location: [facility]; 0326; A The signing pathologist has (i) examined the relevant preparation(s) for the specimen(s) and (ii) rendered or confirmed the diagnosis(es). . Flow Cytometry DIAGNOSIS Pleural biopsy, flow cytometry: 1. No immunophenotypically abnormal T-cell or monoclonal B-cell population identified. 2. No increased blast population present (see Discussion). PRELIMINARY FLOW CYTOMETRY REPORT; MORPHOLOGIC REVIEW PENDING. SEE SEPARATE REPORT FOR FINAL DIAGNOSIS. Electronically signed by: Alejandra Tsang MD Verified: 12/09/2020 14:25 Hematopathologist Performed at: [facility] Dept. of Pathology, [place], [place] DISCUSSION The viability of lymphocytes in this pleural biopsy specimen as assessed by 7-AAD exclusion is approximately 35%. The majority of lymphocytes in the specimen are CD3+ T-cells (71% of lymphocytes; 33% of total c ells) with a mixture of mature CD4+ and CD8+ forms (CD4:CD8 ratio approximately 0.7) without aberrant loss or altered expression of [place] T-cell antigens. CD3-/CD56+ NK cells constitute 26% of lymphocytes (12% of total cells). CD19+ B-cells account for 1% of lymphocytes (<1% of total cells) and appear to express surface light chains in a polytypic pattern (kappa:lambda approximately 1.4), thus there is no valerie immunophenotypic evidence for involvement of the pleura by a monoclonal B-cell lymphoproliferative neoplasm. No increased blast population is identified by CD45/right angle light scatter gating, thus there is no evidence for acute leukemia. Although no immunophenotypically abnormal lymphocyte populations are identified, flow cytometry will not routinely identify non-hematopoietic cells, monoclonal T-cell populations or Hodgkin lymphoma and may miss some B-cell lymphomas, thus correlation with morphologic review, which is currently in progress and the result s of which will be reported separately when available, will be required for definitive diagnosis. Flow analysis is an ancillary study. A definite diagnosis requires correlation with the morphologic features of this process and if necessary, correlation with other ancillary studies like immunohistochemistry, enzyme cytochemistry and/or cyto/ molecular genetics. This test was developed and its performance characteristics determined by the Clinical Flow Cytometry Laboratory at [facility]. It has not been cleared or approved by the U.S. Food and Drug Administration. The FDA has determined that such clearance or approval is not necessary. This test is used for clinical purposes. It should not be regarded as investigational or for research. This laboratory is certified under the Clinical Laboratory Improvement Act of 1988 (CLIA) as qualified to perform high complexity clinical laboratory testing. SPECIMEN PROCESSING [id number] Cells for immunophenotypic analysis were derived from pleural biopsy. CD45 vs side scatter gating was utilized to identify a lymphoid analysis region that comprises approximately 43-46% of all cells. The following markers were assessed: CD2, CD3, CD4, CD5, CD7, CD8, CD10, CD19, CD45, CD56, kappa light chain, and lambda light chain. . CLINICAL INFORMATION 75 yo man with lung mass. Flow cytometry evaluation for lymphoma requested. POCT Glucose Result Value Ref Range POC Glucose 131 65 - 199 mg/dL POCT Glucose Result Value Ref Range POC Glucose 152 65 - 199 mg/dL POCT Glucose Result Value Ref Range POC Glucose 339 (H) 65 - 199 mg/dL POCT Glucose Result Value Ref Range POC Glucose 315 (H) 65 - 199 mg/dL POCT Glucose Result Value Ref Range POC Glucose 195 65 - 199 mg/dL POCT Glucose Result Value Ref Range POC Glucose 162 65 - 199 mg/dL POCT Glucose Result Value Ref Range POC Glucose 134 65 - 199 mg/dL Assessment: Chandana Mcwilliams is a 75 y.o. male who is 1 Day Post-Op s/p Bronchoscopy, Left VATS, Pleural Biopsy, TalcPleurodesis. He is currently in stable condition and recovering well postoperatively. Adames placed for post-op urinary retention. 1. Flomax this AM; trial of void at noon today. 2. Pulmonary toilet 3. Continue Chest Tube to strict -20 suction Plan: Neuro: tylenol celso. Card: HDS, monitor vitals Pulm: IS/cough/deep breathe/OOB/ambulate. Continue Left CT to -20 suction, monitor output. FENGI: LR@75 ml/hr x4 hrs, Carb Control diet 60/60/75 CHO counting level 2. RBOs Renal/: Adames in place, monitor UOP Heme: SQH ID: None Endo: SSI, Lantus 12.5 qHs per home regimen, POCT glucose PPx: scds; SQH, Ambulate 4x a day. OOB. Dispo: full code, floor status Discussed with attending on rounds this AM. ZEENAT Torres 12/10/2020 Thoracic Surgery Service Pager [phone] Charlette Romero RN - 12/10/2020 4:56 AM EDT OUTCOME EVALUATION NOTE: OUTCOME SUMMARY: Patient AOx4, VSS on RA. Denies nausea/vomiting, CP, SOB. Pain controlled w/ scheduled and PRN medications, see MAR for medications given. CT to LCWS, small output overnight. Adames draining CYU. 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 Patient sleeping in between care. Will continue to monitor. PLAN MOVING FORWARD: CT output Adames Pain Control Mobilize DC planning INDIVIDUALIZED FALL PREVENTION INTERVENTIONS: Patient-specific fall risk factors per assessment: [current deficits]: CT, adames, pain, generalized weakness, hospital environment Assistance [level of assistance required for transfers and ambulation]: SBA Supervision [direct monitoring required during toileting and ADLs]: Eyes on Surveillance [continuous indirect monitoring]: Masimo, bed alarm, safety check Patient-specific fall prevention interventions for sensory deficits provided, if applicable: [X] N/A Lou Esparza RN - 12/09/2020 6:58 PM EDT OUTCOME EVALUATION NOTE: OUTCOME SUMMARY: No reports of SOB, chest pain, or n/v throughout shift. Pain controlled adequately with scheduled medications, see MAR. Pt A&Ox4 throughout shift. Dressing to CT site C/D/I. CT draining sanguis/ serosanguinous fluid throughout shift. When for a long walk, 2,000 feet, with nursing. Was OOB and to chair for dinner. Insulin coverage as needed, 2 hour recheck due at 1923. VSS on RA. Will continue to monitor. PLAN MOVING FORWARD: Pain control Mobilize D/c planning INDIVIDUALIZED FALL PREVENTION INTERVENTIONS: Patient-specific fall risk factors per assessment: [current deficits]: Hospital environment, pain, pain medications, toe amputation Assistance [level of assistance required for transfers and ambulation]: SBA Supervision [direct monitoring required during toileting and ADLs]: Eyes on, hands on Surveillance [continuous indirect monitoring]: Masimo, NKE, bed alarm Lou Esparza RN - 12/09/2020 4:58 PM EDT 1530 Pt reported self administering home insulin when this RN attempted to administer schedled does of insulin. Pt educated on reason behind using hospital ordered insulin and all home medications taken home with . Adama Butler PA - 12/09/2020 1:16 PM EDT [facility] Department of Thoracic Surgery Inpatient Post Op Check Note Patient Name: Chandana Mcwilliams Patient : 1945 Patient Patient Location: [address] [place] [address] Attending Surgeon: YESY BLUM ID: Chandana Mcwilliams is a 75 y.o. male who is Day of Surgery LLL mass with pulmonary nodules and pleural effusion s/p Bronchoscopy, Left VATS, pleural biopsies, talc pleurodesis. Subjective: No nausea/vomiting, chest pain, SOB, pain well controlled, offers no complaints Vitals: Temp: [36.2 ??C (97.2 ??F)-37 ??C (98.6 ??F)] Heart Rate: [61-76] Resp: [9-19] BP: (110-142)/(60-77) SpO2: [97 %-100 %] Heart Rate from SpO2: [63 bpm-77 bpm] Wt & BMI By Encounter Date Office Visit from 12/03/2020 in Thoracic Surgery at [facility] Weight 58 kg (127 lb 12.8 oz) 1 12/03/2020 1235 BMI 19.55 1 12/03/2020 1235 Physical Exam: Gen: NAD, pleasant, sitting up in bed HEENT: sclerae anicteric Neck: supple, trachea midline Card: RRR, no M/R/G appreciated Pulm: Left lung sounds decreased compared to right otherwsie CTA, no wheeze/ronchi/rales appreciated, non-labored breathing on RA, Right CT to -20 with no airleak appreciated, incision clean, dry Abd: soft, NT, BS+ : adames in place Ext: warm, dry, no edema Neuro: A&Ox3, CN II-XII grossly intact, nonfocal, conversant I/O: No intake/output data recorded. 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 . Frozen Section FROZEN SECTION DIAGNOSIS FS A - Left pleural biopsy #1 for frozen section - Positive for malignancy, favor non-small cell carcinoma. FSB - Left pleural biopsy #2 for frozen section - Positive for malignancy, favor non-small cell carcinoma. 12/09/20 09:07 Electronically signed by: Rita Ibarra DO Verified: 12/09/2020 9:08 Pathologist Performed at: -[facility] Dept. of Pathology, [place], [place] This intraoperative consultation should be interpreted as a preliminary diagnosis pending review of the entire specimen and special studies, if any. A final Surgical Pathology report will follow this preliminary Frozen Section report(s). Immunophenotyping Flow Cytometry Result Value Ref Range Immunophenotyping Flow See Comment POCT Glucose Result Value Ref Range POC Glucose 131 65 - 199 mg/dL POCT Glucose Result Value Ref Range POC Glucose 152 65 - 199 mg/dL Assessment: Chandana Mcwilliams is a 75 y.o. male who is Day of Surgery s/p Bronchoscopy, Left VATS, Pleural Biopsy, Talc Pleurodesis. He is currently in stable condition and recovering well postoperatively. Adames placed for post-op urinary retention. Plan: Neuro: tylenol celso. Card: HDS, monitor vitals Pulm: IS/cough/deep breathe/OOB/ambulate. Continue Left CT to -20 suction, monitor output. FENGI: LR@75 ml/hr x4 hrs, Regular diet. RBOs Renal/: Adames in place, monitor UOP Heme: SQH ID: None Endo: SSI, Lantus 12.5 qHs per home regimen, POCT glucose PPx: scds; SQH, Ambulate 4x a day. OOB. Dispo: full code, floor status ZEENAT Torres 12/09/2020 Thoracic Surgery Service Pager [phone] Lou Esparza RN - 12/09/2020 1:04 PM EDT Pt arrived to the floor via bed from PACU. A&OX4. VSS on RA. CT to -[address] C/D/I. Incision sites well approximated. Lung sound crackly to Left Lower Lobe, other jacinto clear. Pt denies chest pain, N/T, N&V, SOB. Has a PIV on the right, 20 sudhakar, with LR running at 75. Givenlurih menu. Pt oriented to room, call guerrero and IS. Will continue to monitor. Lou Esparza RN Marj Barth RN - 12/09/2020 11:09 AM EDT 1100 talked with thoracic team re: unable to void. Per team will place a adames and if greater than 500 ml will leave adames in place. Chest tube to suction. Patient is resting comfortably waiting for room assignment Maylin Fisher RN - 12/09/2020 10:17 AM EDT Pt arrived from the OR in a bed with service and anesthesia in attendance. Monitors attached. Alarmson and audible. 0930 - Thoracic notified about chest tube output > 100 cc/hr. Will continue to monitor 0940- Luke PIERCE at bedside to assess chest tube r/t output. Will continue to monitor. 1035 - Luke PIERCE notified of chest tube output (107 cc). Will continue to monitor. Adames placed for 625 cc output. Report called to [facility]. Pt transported in bed with portable suction. documented in this encounter H&P Notes Holland Oro PA - 12/09/2020 6:53 AM EDT Thoracic Surgery Preop NAME: Chandana Mcwilliams DATE: 12/09/20 SURGEON: YESY BLUM PROCEDURE: Bronchoscopy, Left VATS, Pleural Biopsy possible talc pleurodesis vs PleurX catheter placement BRIEF HISTORY: Chandana Mcwilliams is a 75 y.o. male with recurrent left pleural effusion, LLL mass (5.3 x 5.5 x5.7 cm) with pleural nodularities which is concerning for malignancy with pleural involvement. Since we last saw him he had a PET/CT scan, which showed no evidence of extrathoracic disease. The patient reports no interval change. There has been no interval medical illness or hospitalizations. He denies f/c/n/v/CP/SOB. Questions have been addressed. Smoking HX: Social History Tobacco Use Smoking Status Never Smoker Smokeless Tobacco Never Used PMH: Patient Active Problem List Diagnosis Date Noted ??? Pleural effusion 12/06/2020 ??? Mass of [...] Actinic keratosis 08/05/2012 ??? Diabetes mellitus 06/13/2012 PSH: Past Surgical History: Procedure Laterality Date ??? ABDOMEN SURGERY 1995 Right Inguinal Hernia, no complications ??? HERNIA REPAIR MEDS: No current facility-administered medications on file prior to encounter. Current Outpatient Medications on File Prior to Encounter Medication Sig Dispense Refill ??? insulin lispro (HumaLOG) Insulin Pen Inject subcutaneously 3 times daily (before meals). Slidingscale ??? Jardiance 25 mg Tablet 12.5mg daily ??? Lantus Solostar U-100 Insulin pen INJECT 12 UNITS SUBCUTANEOUSLY AT BEDTIME ??? losartan (Cozaar) 50 mg Tablet TAKE 1 TABLET BY MOUTH DAILY ??? Janumet 50-1,000 mg Tablet TAKE 1 TABLET BY MOUTH TWICE DAILY ??? FLUoxetine (PROzac) 20 mg Tablet TAKE 1/2 TABLET BY MOUTH DAILY ??? timolol (TIMOPTIC) 0.25 % ophthalmic solution 1 drop 2 times daily. ??? latanoprost (XALATAN) 0.005 % ophthalmic solution 1 drop nightly. ??? atorvastatin (LIPITOR) 10 mg tablet 10mg, PO, Once daily ??? EPINEPHrine 0.3 mg/0.3 mL Auto-Injector Inject into the muscle. ??? Glucagon 1 mg Recon Soln Inject subcutaneously. ??? valACYclovir (Valtrex) 500 mg Tablet Take by mouth as needed. As needed ??? CIS Free Text Med - Phenergan 25mg, [place], PRN (Patient not taking: Reported on 12/03/2020) ??? lisinopril (PRINIVIL;ZESTRIL) 2.5 mg tablet 2.5MG = 1 Tablet(s), PO, Once daily (Patient not taking: Reported on 12/03/2020) ??? metFORMIN (GLUCOPHAGE-XR) 500 mg 24 hr tablet (Patient not taking: Reported on 12/03/2020) ??? hyoscyamine (LEVSIN) 0.125 mg tablet (Patient not taking: Reported on 12/03/2020) ALL: Allergies Allergen Reactions ??? Venom-Honey Bee Physical Exam Patient Vitals for the past 24 hrs: Temp Pulse Resp BP SpO2 O2 Device 12/09/20 0615 36.2 ??C (97.2 ??F) 61 16 141/77 100 % RA Gen: NAD, pleasant, sitting up in bed comfortably HEENT: normocephalic, atraumatic, sclerae anicteric Neck: supple, trachea midline Card: RRR, no M/R/G appreciated Pulm: CTAB though diminished on the left moreso at the base, no wheeze/ronchi/rales appreciated, non-labored breathing on RA Abd: soft, NT, BS+ Ext: warm, dry, no edema Neuro: Alert, nonfocal, conversant LABS: No results found for: NA, K, CL, CO2, BUN, CREATININE CT Chest (11/20/20): ?? PET/CT (12/06/20): 1. A 7 cm FDG avid necrotic [...] metastasis. 4. No extrathoracic sites of metastasis. Brain MRI: pending FILM ON PACS: yes CONSENT: Yes/EMR - Yes Assessment/Plan: Chandana Mcwilliams is a 75 y.o. male presenting today for planned Bronchoscopy, Left VATS,Pleural Biopsy possible talc pleurodesis vs PleurX catheter placement due to recurrent left pleural effusion, LLL mass (5.3 x 5.5 x5.7 cm) with pleural nodularities concerning for malignancy with pleural involvement. Consent signed and confirmed in chart. Questions addressed. Will proceed with planned surgery. ZEENAT Sanches 12/09/2020 Thoracic Surgery Service Pager [phone] documented in this encounter Miscellaneous Notes Care Management Discharge - Bel Oseguera, RN - 12/11/2020 9:56 AM EDT CARE MANAGEMENT FINAL DISCHARGE NOTE Chart reviewed, care reviewed with primary team and at interdisciplinary rounds. Patient is medically ready for discharge to Home with no needs today 12/11/2020 Needs for Transition of Care: Plan for discharge is: Agency Referrals & Follow-up Care: Home with follow up visits as noted by team in discharge paperwork Transportation: Family Functional status prior to admission: Independent Home Environment: Others in the home: spouse. Current Living Arrangements: home/apartment/condo. Accessibility Concerns:Few steps to enter; 2 level home - stays on 1st level bed/bath; no DMEs. Current Functional Ability: Independent DME used at home: none DME Needed at Discharge: None Patient is insured through: Primary Insurance: MEDICARE Payor: MEDICARE / Plan: MEDICARE PART A & B / Product Type: *No Product type* / Secondary Insurance: CIGNA Prescription Coverage: Yes Preferred Pharmacy: [id number] - [place], [place] - [address] [place] [address] AT SEC OF [facility] [address] [place] [phone] This plan was formulated with input from patient, and team. All are in agreement with plan. Due to current public health concerns, I have verbally reviewed Medicare Discharge Rights with patient. Patient verbalizes via telephone understanding of right to appeal this discharge if feeling not medically ready. Important Message From Medicare about Your Rights letter was reviewed with patient. Patient acknowledged understanding of their right to appeal this discharge if they feel that they are not medically ready Bel Oseguera RN ACM Case Management Pgr # [phone] Office of Care Management Bel Oseguera RN AC Pager #[phone] Consult Note - Caroline Garcia APRN - 12/10/2020 3:23 PM EDTSummary: POD # 1 deom lung surgery for [place] Images from the original note were not included. . Diabetes Management Team Inpatient Consult Date of Consultation: 12/10/2020 Consult Requested by: thoracic surgery team Reason for Consultation: Chandana Mcwilliams is a 75 y.o. male with PMH significant for IDDM2, HTN, HLD, andchronic sinusitis and is a never smoker. He reports that his first effusion was noted over the summer of 2020 with noticeable back pain, a subsequent CXR showed a left effusion. He was admitted on 12/09/2020 and had a Bronchoscopy, Left VATS, Pleural Biopsy, Talc Pleurodesis.. We are being consulted toassist with diabetes management and to provide a review of nursing home diabetes care. Diabetes History: Chandana Mcwilliams has had diabetes for 15 years. States he has had this for 15 years and it was noted on ahospital labs after a surgical problem in his abdomen. Current outpatient diabetes regimen: Diabetes Provider: sees his clinic Pharmacist who is also a CDE Medications: Janumet, Jardiance, lispro at meals for BS> 200, Lantus 12 units at HS Monitoring is done several times a day with Carritus [place]-he is pleased with this and finds it os mostly within a few points of his FS BS Most recent HA1c is pending. 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 Rare. Says he recognizes and has never needed help for this from his family Diabetes education:Yes-his clinic Pharm D Insulin administration site: abdomen Compliance with insulin: Diabetes Complications Status: Eyes: he is unsure f DM is involved Kidneys: says None Feet: says has tingling but passes monofilament Sensory: says None Autonomic: None Cardiac: HLP, HTN Current Hospital Diabetes Care: Medications: Monitoring: q 4 hrs Diet: CHO 2 ROS: Constitutional: ++recent weight change Endocrine: + thirst or urination -but drinks a lot of water Eyes: No recent vision change ENT: No dysphagia, dental issues Cardiovascular: n No chest pain Respiratory: No wheezing , shortness of breath GI: No nausea, vomiting, diarrhea, constipation : No frequent urinary tract infections Neurological: No weakness or numbness Skin/Feet: No current diabetic foot ulcers/open area PMH Past Medical History: Diagnosis Date ??? Anxiety ??? CAD (coronary artery disease) ??? Glaucoma ??? Hypertension ??? Irritable bowel syndrome ??? Type 2 diabetes mellitus 1999 Current Hospital Medications: ??? tamsulosin 0.4 mg Oral Daily ??? atorvastatin 10 mg Oral QPM ??? FLUoxetine 10 mg Oral Daily ??? latanoprost 1 drop Both Eyes Nightly ??? losartan 50 mg Oral Daily ??? timoloL 1 drop Both Eyes BID ??? sodium chloride 0.9 % (flush) 5 mL Intravenous BID ??? senna 17.2 mg Oral QPM ??? docusate sodium 100 mg Oral TID ??? heparin (porcine) 5,000 Units Subcutaneous Q8H CELSO ??? acetaminophen 1,000 mg Oral Q6H CELSO ??? lidocaine 1 patch Transdermal Q24H And ??? lidocaine 1 patch Transdermal Q24H ??? insulin lispro 0-8 Units Subcutaneous TID WC ??? insulin glargine 13 Units Subcutaneous Nightly ??? insulin lispro 1-5 Units Subcutaneous Q4H CELSO Infusions: PRN: bisacodyL, sterile talc, BUpivacaine (pf), sodium chloride 0.9 % (flush), lidocaine, glucose 40% oral geL OR dextrose 10% OR glucagon Allergy: Allergies Allergen Reactions ??? Venom-Honey Bee Social history: Social History Tobacco Use ??? Smoking status: Never Smoker ??? Smokeless tobacco: Never Used Vaping Use ??? Vaping Use: Never used Substance Use Topics ??? Alcohol use: Yes Alcohol/week: 7.0 standard drinks Types: 7 Glasses of wine per week Comment: 1 glass of wine per day ??? Drug use: Yes Types: Marijuana Comment: 1-2 times per month through smoking Family history: Family History Problem Relation Age of Onset ??? Coronary Artery Disease Father ??? Diabetes Paternal Aunt Vitals Last value Range last 24 hrs Temperature Temp: 37 ??C (98.6 ??F) Temp: [36.4 ??C (97.5 ??F)-37 ??C (98.6 ??F)] Heart Rate Heart Rate: 76 Heart Rate: -- Blood Pressure BP: 108/63 BP: (98-113)/(57-63) Respiratory Rate Resp: 15 Resp: [14-16] SpO2 SpO2: 96 % SpO2: [96 %-98 %] Physical Exam: Gen: NAD, talking in clear sentences. Laying in bed comfortably Neuro: Moving all extremities. Grossly non-focal Labs: Assessment: Patient is a 75 y.o. years old male with PMH significant for DM (Last A1C of n) who was admitted on 12/09/2020 for surgery. Diabetes somewhat controlled and complicated by surgery and Receiving 8 mg dexamethasone. Currently with variability of blood glucose levels while hospitalized requiring adjustment of insulin regimen and DM medications. Plan: 1. Lantus 13 units qd 2. Lispro custom sliding scale for BG>140 3. Meal-associated Lispro 0-8 units tid ac (or 1unit: 20 gm carb ratio for each meal) residential diabetes care: Medications - Outpatient treatment regimen recommendations pending based on the hospital course. Monitoring - continue BG tid ac & hs Diet - low fat/low carb diet Exercise - weight-bearing exercise 30 min/day, as tolerated Thank you for allowing us to provide care for your patient Initial Assessments - Mirna Diaz RN - 12/10/2020 1:02 PM EDT Office of Care Management Initial Assessment Mirna Diaz RN reviewed record and discussed patient with Care Team. Source of Information: Team, bedside nurse, medical record, and Patient, Chart Review Introduced self/reviewed role; services accepted. Reason for Hospitalization: bronchoscopy and VATS Last COVID test: Lab Results Component Value Date [id number] Not Detected 12/09/2020 Past medical History: Past Medical History: Diagnosis Date ??? Anxiety ??? CAD (coronary artery disease) ??? Glaucoma ??? Hypertension ??? Irritable bowel syndrome ??? Type 2 diabetes mellitus 2000 Hospitalizations Within the Past 30 Days: no previous admission in last 30 days Current Decision-Making Capacity: Self Advance Care Planning: Attempt Cardiopulmonary Resuscitation - Inpatient <no information> -Advanced Directive: Other If AD's have not been completed Gena Mcwilliams (Spouse) would be surrogate decision maker per [place] surrogate decision making law. (Only good for 180 days) Any patient receiving care at [facility] must abide by [place] law. The hierarchy for surrogate decision making is: (a) Patient???s spouse, or civil union partner or common law spouse unless there is a divorce proceeding, separation agreement, or restraining order limiting that person???s relationship with the patient. (b) Any adult son or daughter of the patient. (c) Either parent of the patient. (d) Any adult brother or sister of the patient. (e) Any adult grandchild of the patient. (f) Any grandparent of the patient. (g) Any adult aunt, uncle, niece, or nephew of the patient. (h) A close friend of the patient. (i) The agent with financial power of internal controls specialist or a conservator appointed in accordance with RSA 464-A. (j) The guardian of the patient???s estate. Current Functional Ability: Independent Functional Status Prior to Admission: Independent Home Environment: Others in the home: spouse. Current Living Arrangements: home/apartment/condo. Accessibility Concerns:Few steps to enter; 2 level home - stays on 1st level bed/bath; no DMEs. Current DME: none Home Address (confirmed) [address] [place] [id number] Social & Family Supports: All names listed below confirmed with patient as current and correct Extended Emergency Contact Information Primary Emergency Contact: Gena Mcwilliams Address: [address] [place] [phone] [facility] Relation: Spouse Current Care Provided by: self Provides Primary Care For: no one Caregiver if needed: spouse Quality of Family relationships: helpful, involved, supportive Community Resources being provided currently: none Behavioral Health History: Depressive Disorder Substance Use/Abuse (listed) Social History Tobacco Use Smoking Status Never Smoker In the past year have you used an illegal drug or used a prescription medication for non-medical reaons?: No 0 No problems reported 1-2 Low level 3-5 Moderate level 6-8 Substantial level 9- 10 Severe level In the past year have you had 5 or more drinks a day containing alcohol?: No 0 to 7 points: Low risk 8 to 15 points: Medium risk 16 to 19 points: High risk 20 to 40 points: Addiction likely Health/Prescription Coverage: Primary Insurance: MEDICARE Payor: MEDICARE / Plan: MEDICARE PART A & B / Product Type: *No Product type* / Secondary Insurance: CIGNA Prescription Coverage: YES Preferred Pharmacy: No Pharmacies Listed Status: Patient is a : No Primary Care Provider: Paxton Segura MD [phone] Patient/Caregiver Goals of Treatment: Return home Potential Needs for Transition of Care: none Agency Referrals: Pt is amenable to using [facility] IF MD says he needs it. Transportation: no concerns Transportation Anticipated: family or friend will provide Concerns to be Addressed: no discharge needs identified Assessment: Patient is admitted to Thoracic service for surgery Plan: A member of the Care Management team will continue to monitor progress, follow for continuity of care and assist with transition of care planningKalli Stovall) TAMMY Diaz RN/CM - Cellphone: [phone] Pager: [phone] Covering Service RN/CM Brief Op Note - Adama Butler PA - 12/09/2020 9:19 AM EDT Brief Operative Note Patient Name: Chandana Mcwilliams : [id number] MR#: [id number] Case Date: 12/09/2020 Surgeon: Surgeon(s) and Role: * Yesy Blum MD - Primary * Adama Butler PA - Physician Neurological Physiotherapist Preoperative diagnosis: effusion and masses Postoperative diagnosis: effusion and masses Procedure(s) (LRB): @THORACOSCOPY, SURG; W PLEURODESIS (WRVU 10.83) (Left) BRONCHOSCOPY, DIAGNOSTIC (WRVU 2.78) (N/A) NERVE BLOCK, INTERCOSTAL NERVE, MULTIPLE (WRVU 1.68) (Left) Anesthesia: General Findings: Bronchoscopy, no endobronchial findings. Left VATS, LLL mass with multiple pleural nodularities and a 2x2 cm mass at the posterior and inferior chest wall. Approximately 1 L of serosanguineous fluid removed. Frozen section for pleural biopsies revealed possible NSCLC. Talc Pleurodesis performed. Complications: None Estimated Blood Loss: * No values recorded between 12/09/2020 8:19 AM and 12/09/2020 9:09 AM * * No values recorded between 12/09/2020 8:19 AM and 12/09/2020 9:09 AM * Specimens removed during surgery: Order Name Source Comment Collection Info Order Time CYTOPATHOLOGY NON-GYNECOLOGICAL Left pleural fluid OR 11 [id number] 12/09/2020 8:24 AM Pertinent clinical data and significant therapy: effusion and masses Clinical impression: effusion and masses Procedure Type: Other (please specify in Comments Field below) Specimen Type: Pleural fluid (thoracentesis) Description and source of specimen: Left pleural fluid SPECIMEN TO PATHOLOGY Left pleural biopsy #1 OR 11 [id number] effusion and masses Left pleural biopsy #1 biopsy YES, Please perform frozen section No 12/09/2020 8:38 AM Number of tissue samples (in container) 1 Time specimen removed from patient: 8:37 AM SPECIMEN TO PATHOLOGY Left pleural biopsy #2 [id number] OR 11 effusion and masses Left pleural biopsy #2 biopsy YES, Please perform frozen section No 12/09/2020 8:42 AM Number of tissue samples (in container) 1 Time specimen removed from patient: 8:41 AM SPECIMEN TO PATHOLOGY Left pleural biopsy #2 OR 11 [id number] effusion and masses Left pleural biopsy #2 biopsy No 12/09/2020 8:43 AM Time specimen removed from patient: 8:42 AM Number of tissue samples (in container) 1 SPECIMEN TO PATHOLOGY Left pleural biopsy #3 OR 11 [id number] effusion and masses Left pleural biopsy #3 biopsy No 12/09/2020 8:48 AM Time specimen removed from patient: 8:47 AM Number of tissue samples (in container) 1 Fluids: Intraprocedure Crystalloid Total None PRBCs: none (See Anesthesia Record/Report for Other Blood Products) Urine Output: (no urine output recorded) Drains: Left 20 Fr Chest Tube Disposition: awakened from anesthesia, extubated and taken to the recovery room in a stable condition, having suffered no apparent untoward event. Condition: doing well without problems (Please see the Surgical Encounter Summary for any Implant and Specimen details pertinent to this patient.) Infection Bundle used? No Op Note - Yesy Blum MD - 12/09/2020 8:19 AM EDT Preoperative diagnosis: Pleural effusion with lung masses Postoperative diagnosis: Pleural effusion with lung masses Procedure: Bronchoscopy, left VATS, pleural biopsies, talc pleurodesis. Wednesday here coming here Wednesday cancer 80 8 in the morning as well Operative findings: Approximately 1 L of serosanguineous fluid in the left chest. Easily identified mass in the left lower lobe arising from the lung. Multiple pleural nodules including a 1 cm pleural mass in the left costophrenic angle. Biopsy consistent with malignancy, non-small cell lung cancer. Ability to perform pleurodesis due to near full reexpansion of the lung. Operative dictation: After consent was obtained, the patient was marked, brought to the operating room placed in the supine position. Double-lumen endotracheal anesthesia was administered without any difficulty, timeout was performed and a P190 Lippes bronchoscope was advanced. He had normal tracheobronchial tree was minimal secretions and no endobronchial lesions. Left lower lobe up to the fourth or fifth generation bronchi, he had no endobronchial lesions and nocompression. Secretions were evacuated and the scope was removed. Given the findings, we are able toproceed on with the planned operation. The patient was positioned in the right lateral decubitus position with the left arm position to reduce any injury to the brachial plexus. Sterile prep and drape are done usual fashion, timeout was performed and a Veress needle was advanced at the tip of the scapula into the chest cavity or CO2 gas insufflation to 10 mmHg was performed. Prior to making any incisions, 0.5% Marcaine was instilled in each incision site. In approximately the eighth interspace in the posterior axillary line, a 1 cm incision was performed through which a 5 mm port was advanced. The camera was advanced we noted that he had obvious pleural disease and a pleural effusion that was serosanguineous in nature. Majority of the effusion was evacuated, some of which was sent for cytology. We then performed intercostal blocks with 0.5% Marcaine under direct visualization. We then placed a second 5 mm port and perform pleural biopsies while exploring the pleural cavity. He had multiple nodules especially down to the base and a larger one in the costophrenic angle. The mass in the left lower lobe was obvious and coming out from the level of the inferior pulmonary ligament on the basilar aspect of the left lower lobe is most often the lung in origin. Frozen section on the pleural biopsies came back positive for non-small cell lung cancer. We did a test inflation of the lung inflated to nearly fill the entire chest cavity which he felt was enough for talk for the cyst. Talc pleurodesis was then performed. Normal visceral parietal surface of the lung especially down near the diaphragm. A 28 Setswana chest tube was placed in the posterior apical position to the camera port. The lung was inflated under direct visualization inflated to fill almost the entire chest cavity. The wounds were then closed in layers with 2-0 Vicryl for the deep muscle layer, 3-0 Vicryl for dermal layer and Dermabond for the skin. The chest tube was secured the chest wall with 0 silk suture attached to Pleur-evac drainage and a sterile dressing was placed around it. The patient was then woken from anesthesia, extubated brought to recovery in stable condition. ZEENAT Chandler was my senior administrative assistant during the entire procedure since no qualified resident was available. I was present for the entire procedure and dictated this operative note. Yesy Blum MD documented in this encounter Plan of Treatment Upcoming Encounters Date Type Specialty Care Team Description 12/29/2021 Office Visit Hematology and Oncology Castro Leong MD [facility] [address] HEMATOLOGY/[place] [address] Maylin Monet APRN [facility] [address] [place] [address] 12/29/2021 Infusion Hematology and Oncology Scheduled Referrals Name Type Priority Associated Order Schedule Diagnoses Referral to Outpatient Referral Routine Pulmonary mass Ordere d: Hematology and 12/11/2020 Oncology documented as of this encounter Procedures Procedure Name Priority Date/Time Associated Comments Diagnosis HC VENIPUNCTURE Routine 12/11/2020 9:12 Results f or this AM EDT procedure are i n the results section. POCT GLUCOSE Routine 12/11/2020 7:35 Results for this AM EDT procedure are i n the results section. POCT GLUCOSE Routine 12/11/2020 3:57 Results for this AM EDT procedure are i n the results section. POCT GLUCOSE Routine 12/10/2020 11:22 Results for this PM EDT procedure are i n the results section. POCT GLUCOSE Routine 12/10/2020 8:54 Results for this PM EDT procedure are i n the results section. POCT GLUCOSE Routine 12/10/2020 6:49 Results for this PM EDT procedure are i n the results section. POCT GLUCOSE Routine 12/10/2020 4:39 Results for this PM EDT procedure are i n the results section. POCT GLUCOSE Routine 12/10/2020 8:16 Results for this AM EDT procedure are i n the results section. POCT GLUCOSE Routine 12/10/2020 3:43 Results for this AM EDT procedure are i n the results section. POCT GLUCOSE Routine 12/09/2020 11:15 Results for this PM EDT procedure are i n the results section. POCT GLUCOSE Routine 12/09/2020 7:31 Results for this PM EDT procedure are i n the results section. XR CHEST PA AND LATERAL Routine 12/09/2020 7:21 R esults for this PM EDT procedure are i n the results section. POCT GLUCOSE Routine 12/09/2020 4:23 Results for this PM EDT procedure are i n the results section. POCT GLUCOSE Routine 12/09/2020 11:47 Results for this AM EDT procedure are i n the results section. POCT GLUCOSE Routine 12/09/2020 9:37 Results for this AM EDT procedure are i n the results section. IMMUNOPHENOTYPING FLOW Routine 12/09/2020 8:50 Re sults for this CYTOMETRY AM EDT procedure are i n the results section. FLOW CYTOMETRY REPORT Routine 12/09/2020 8:50 Res ults for this AM EDT procedure are i n the results section. SPECIMEN TO PATHOLOGY Routine 12/09/2020 8:48 Res ults for this AM EDT procedure are i n the results section. SPECIMEN TO PATHOLOGY Routine 12/09/2020 8:43 Res ults for this AM EDT procedure are i n the results section. SPECIMEN TO PATHOLOGY STAT 12/09/2020 8:42 Res ults for this AM EDT procedure are i n the results section. SOLID TUMOR NGS PANEL Routine 12/09/2020 8:38 AM EDT SURGICAL PATHOLOGY REPORT Routine 12/09/2020 8:38 Results for this AM EDT procedure are i n the results section. SPECIMEN TO PATHOLOGY STAT 12/09/2020 8:38 Res ults for this AM EDT procedure are i n the results section. NERVE BLOCK, INTERCOSTAL Routine 12/09/2020 8:25 Pleural effus ion, NERVE, MULTIPLE AM EDT left Mass of lower lobe of left lung NON-STAMP PRESS OPERATOR FINAL REPORT Routine 12/09/2020 8:24 Resu lts for this AM EDT procedure are i n the results section. CYTOPATHOLOGY Routine 12/09/2020 8:24 Results for this NON-GYNECOLOGICAL AM EDT procedure are in the results section. NERVE BLOCK, INTERCOSTAL Yes 12/09/2020 7:37 Pleural effus ion, NERVE, MULTIPLE (WRVU AM EDT left 1.68) Mass of lower lobe of left lung BRONCHOSCOPY, DIAGNOSTIC Yes 12/09/2020 7:37 Pleural effus ion, (WRVU 2.78) AM EDT left Mass of lower lobe of left lung @THORACOSCOPY, SURG; W Yes 12/09/2020 7:37 Pleural effusio n, PLEURODESIS (WRVU 10.83) AM EDT left Mass of lower lobe of left lung RAPID COVID-19 PCR Routine 12/09/2020 7:30 Result s for this ([facility]) AM EDT procedure are in the results section. POCT GLUCOSE Routine 12/09/2020 7:25 Results for this AM EDT procedure are i n the results section. POCT GLUCOSE Routine 12/09/2020 6:15 Results for this AM EDT procedure are i n the results section. THORACOSCOPY, SURG; W Routine 12/09/2020 6:08 Pleural effusion , PLEURODESIS AM EDT left Mass of lower lobe of left lung BRONCHOSCOPY,DIAGNOSTIC Routine 12/09/2020 6:08 Pleural effusi on, AM EDT left Mass of lower lobe of left lung documented in this encounter Results XR Chest [...] who have questions please contact the health dialysis patient care technician that requested your imaging first. ? Narrative 12/31/2020 10:23 AM EDT EXAMINATION: XR [...] ho have questions please contact the health dialysis patient care technician that requested your imaging first. Yesy Blum MD IMG DX ORDERABLES (ABNORMAL) Hemoglobin A1c (12/11/2020 9:12 AM EDT) Analysis Performed At [facility] Time Signature Hemoglobin A1C 7.8 (H) 4.3 - 5.6 [facility] Comment: Reference Range: 4.3 - 5.6% 5.7 - 6.4% - Increased Risk of Developin g Diabetes Mellitus >= 6.5% - Consistent with diagnosis of D iabetes Mellitus In the absence of hyperglycemia (i.e. pl asma glucose > 200 mg/dL) or classic symptoms of hyperglycemia a repeat measu rement of HbA1c should be performed on a separate sample to confirm the diagnos is. Diagnosis and Classification of Diabetes Mellitus, Diabetes Care 2013; 36: Suppl. 1, S67-42 Est Avg Gluc See note mg/dL [facility] Comment: Estimated Average Glucose not appropriat e for patients over 70 years of age. eAG equivalents for HbA1c percentages: HbA1c(%) ?eAG(mg/dL) 6.0 ?126 6.5 ?140 7.0 ?154 7.5 ?169 8.0 ?183 8.5 ?197 9.0 ?212 9.5 ?226 10.0 ? 240 Limitations: The eAG calculation has not been validated on women, individuals below 18 years old and above 70 years old, and individuals with hemoglobinopathies. Additional resources are available on [facility] ADA website. Daniel STEVENS, Kamille J, Cash R, et al. ??Tr anslating the A1C assay into estimated average glucose values. ??Diabetes Care 2008:31(8):6611-0091. Specimen Anatomical Collection Method Collection Time Receive d Time (Source) Location / / Volume Laterality Blood 12/11/2020 9:12 AM 1 9:24 EDT AM EDT Resulting Agency Comment Spec In Lab Yesy Blum MD CHEMISTRY ORDERABLES Performing Organization Address City/[facility]/ZIP Code Phon e Number [address] POCT Glucose (12/11/2020 7:35 AM EDT) athologist Signature POC Glucose 118 65 - 199 [facility] Comment: Supplemental ranges: <140 mg/dL before meals <180 mg/dL all other times of the day Specimen Anatomical Collection Method Collection Time Receive d Time (Source) Location / / Volume Laterality Blood 12/11/2020 7:35 AM 1 7:35 EDT AM EDT Yesy Blum MD POINT OF CARE TEST ORDERABLE S Performing Organization Address City/[facility]/ZIP Code Phon e Number [address] POCT Glucose (12/11/2020 3:57 AM EDT) P athologist Signature POC Glucose 120 65 - 199 [place] mg/dL [facility] Comment: Supplemental ranges: <140 mg/dL before meals <180 mg/dL all other times of the day Specimen Anatomical Collection Method Collection Time Receive d Time (Source) Location / / Volume Laterality Blood 12/11/2020 3:57 AM 1 3:57 EDT AM EDT Yesy Blum MD POINT OF CARE TEST ORDERABLE S Performing Organization Address City/[facility]/[place] [address] POCT Glucose (12/10/2020 11:22 PM EDT) athologist Signature POC Glucose 134 65 - 199 [facility] mg/dL [facility] Comment: Supplemental ranges: <140 mg/dL before meals <180 mg/dL all other times of the day Specimen Anatomical Collection Method Collection Time Receive d Time (Source) Location / / Volume Laterality Blood 12/10/2020 11:22 12/10/2020 PM EDT 11:22 PM EDT Yesy Blum MD POINT OF CARE TEST ORDERABLE S Performing Organization Address City/State/[place] [address] POCT Glucose (12/10/2020 8:54 PM EDT) athologist Signature POC Glucose 199 65 - 199 [place] mg/dL [facility] Comment: Supplemental ranges: <140 mg/dL before meals <180 mg/dL all other times of the day Specimen Anatomical Collection Method Collection Time Receive d Time (Source) Location / / Volume Laterality Blood 12/10/2020 8:54 PM 8:54 EDT PM EDT Yesy Blum MD POINT OF CARE TEST ORDERABLE S Performing Organization Address City/State/[place] [address] (ABNORMAL) POCT Glucose (12/10/2020 6:49 PM EDT) athologist Signature POC Glucose 292 (H) 65 - 199 [facility] mg/dL [facility] Comment: Supplemental ranges: <140 mg/dL before meals <180 mg/dL all other times of the day Specimen Anatomical Collection Method Collection Time Receive d Time (Source) Location / / Volume Laterality Blood 12/10/2020 6:49 PM 6:49 EDT PM EDT Yesy Blum MD POINT OF CARE TEST ORDERABLE S Performing Organization Address City/State/[place] [address] (ABNORMAL) POCT Glucose (12/10/2020 4:39 PM EDT) athologist Signature POC Glucose 271 (H) 65 - 199 [facility] mg/dL [facility] Comment: Supplemental ranges: <140 mg/dL before meals <180 mg/dL all other times of the day Specimen Anatomical Collection Method Collection Time Receive d Time (Source) Location / / Volume Laterality Blood 12/10/2020 4:39 PM 1 4:39 EDT PM EDT Yesy Blum MD POINT OF CARE TEST ORDERABLE S Performing Organization Address City/State/ZIP Code Phon e Number [address] POCT Glucose (12/10/2020 8:16 AM EDT) athologist Signature POC Glucose 134 65 - 199 [place] mg/dL [facility] Comment: Supplemental ranges: <140 mg/dL before meals <180 mg/dL all other times of the day Specimen Anatomical Collection Method Collection Time Receive d Time (Source) Location / / Volume Laterality Blood 12/10/2020 8:16 AM 1 8:16 EDT AM EDT Yesy Blum MD POINT OF CARE TEST ORDERABLE S Performing Organization Address City/State/ZIP Code Phon e Number [address] POCT Glucose (12/10/2020 3:43 AM EDT) athologist Signature POC Glucose 162 65 - 199 [place] mg/dL [facility] Comment: Supplemental ranges: <140 mg/dL before meals <180 mg/dL all other times of the day Specimen Anatomical Collection Method Collection Time Receive d Time (Source) Location / / Volume Laterality Blood 12/10/2020 3:43 AM 1 3:43 EDT AM EDT Yesy Blum MD POINT OF CARE TEST ORDERABLE S Performing Organization Address City/State/[place] [address] POCT Glucose (12/09/2020 11:15 PM EDT) athologist Signature POC Glucose 195 65 - 199 [facility] Comment: Supplemental ranges: <140 mg/dL before meals <180 mg/dL all other times of the day Specimen Anatomical Collection Method Collection Time Receive d Time (Source) Location / / Volume Laterality Blood 12/09/2020 11:15 12/09/2020 PM EDT 11:15 PM EDT Yesy Blum MD POINT OF CARE TEST ORDERABLE S Performing Organization Address City/State/[place] [address] (ABNORMAL) POCT Glucose (12/09/2020 7:31 PM EDT) athologist Signature POC Glucose 315 (H) 65 - 199 [facility] Comment: Supplemental ranges: <140 mg/dL before meals <180 mg/dL all other times of the day Specimen Anatomical Collection Method Collection Time Receive d Time (Source) Location / / Volume Laterality Blood 12/09/2020 7:31 PM 7:31 EDT PM EDT Yesy Blum MD POINT OF CARE TEST ORDERABLE S Performing Organization Address City/State/[place] [address] XR Chest PA & Lateral (Generic) (12/09/2020 7:21 PM EDT) Anatomical Region Laterality Modality Chest N/A Digital Radiography Specimen (Source) Anatomical Location Collection Method / Collectio n Time Received Time / Laterality Volume Impressions 12/10/2020 8:18 AM EDT Small effusion or mild pleural thickening at the posterior costophrenic angle on the left. Trace left pneumothorax. Left chest tube in place. Minimal subcut aneous emphysema at the left chest wall. Thank you for letting us participate in the care of this patient. ??If you are a health care provider and have any questi ons regarding this report, please contact the number below. ??For patients who have questions please contact the health dialysis patient care technician that requested your imaging first. ? Electronically signed by: Yessenia Villagran MD, [facility] ([phone]), at 12/10/2020 8:18 AM Narrative 12/10/2020 8:18 AM EDT EXAMINATION: XR CHEST PA AND LATERAL (GENERIC) CLINICAL HISTORY: post op pleurodesis TECHNIQUE: PA and lateral views of the chest COMPARISON: CT 11/20/2020 FINDINGS: Small pleural effusion or pleural thicke rose marie at the posterior costophrenic angle on the left. A left-sided chest tube is in place with tip at the apex. Trace left apical pneumothorax. Left apical pleural calcification is see n again. Known left medial basilar mass. No new airspace disease. Normal size of the heart and normal width of the mediastinum. No interval osseous change. Minimal left chest wall subcutaneous emphysema. Procedure Note Yessenia Garcia MD - 2020 EXAMINATION: XR CHEST PA AND LATERAL (GE NERIC) CLINICAL HISTORY: post op pleurodesis TECHNIQUE: PA and lateral views of the chest COMPARISON: CT 11/20/2020 FINDINGS: Small pleural effusion or pleural thicke rose marie at the posterior costophrenic angle on the left. A left-sided chest tube is in place with tip at the apex. Trace left apical pneumothorax. Left apical pleural calcification is see n again. Known left medial basilar mass. No new airspace disease. Normal size of the heart and normal width of the mediastinum. No interval osseous change. Minimal left chest wall subcutaneous emphysema. IMPRESSION Small effusion or mild pleural thickenin g at the posterior costophrenic angle on the left. Trace left pneumothorax. Left chest tube in place. Minimal subcut aneous emphysema at the left chest wall. Thank you for letting us participate in the care of this patient. If you are a health care provider and have any questi ons regarding this report, please contact the number below. For patients w ho have questions please contact the health dialysis patient care technician that requested your imaging first. Yesy Blum MD IMG DX ORDERABLES (ABNORMAL) POCT Glucose (12/09/2020 4:23 PM EDT) athologist Signature POC Glucose 339 (H) 65 - 199 [place] mg/dL [facility] Comment: Supplemental ranges: <140 mg/dL before meals <180 mg/dL all other times of the day Specimen Anatomical Collection Method Collection Time Receive d Time (Source) Location / / Volume Laterality Blood 12/09/2020 4:23 PM 4:23 EDT PM EDT Yesy Blum MD POINT OF CARE TEST ORDERABLE S Performing Organization Address City/State/ZIP Code Phon e Number [address] POCT Glucose (12/09/2020 11:47 AM EDT) athologist Signature POC Glucose 152 65 - 199 [place] mg/dL [facility] Comment: Supplemental ranges: <140 mg/dL before meals <180 mg/dL all other times of the day Specimen Anatomical Collection Method Collection Time Receive d Time (Source) Location / / Volume Laterality Blood 12/09/2020 11:47 12/09/2020 AM EDT 11:47 AM EDT Yesy Blum MD POINT OF CARE TEST ORDERABLE S Performing Organization Address City/State/[place] [address] POCT Glucose (12/09/2020 9:37 AM EDT) athologist Signature POC Glucose 131 65 - 199 [facility] [place] mg/dL [facility] Comment: Supplemental ranges: <140 mg/dL before meals <180 mg/dL all other times of the day Specimen Anatomical Collection Method Collection Time Receive d Time (Source) Location / / Volume Laterality Blood 12/09/2020 9:37 AM 9:37 EDT AM EDT Yesy Blum MD POINT OF CARE TEST ORDERABLE S Performing Organization Address City/State/ZIP Code Phon e Number [place] [address] Flow Cytometry Report (12/09/2020 8:50 AM EDT) Component Value Ref Test Analysis Performed At [facility] Range Method Time Signature Flow [id number] ? Location: 3WST; 0326; A [facility] Report The signing pathologist has (i) examined the relevant preparation(s) for the [facility] specimen(s) and (ii) rendered or confirmed the diagnosis(es) . HOSPITAL LABORATORY . ?Kendrick w Cytometry DIAGNOSIS Pleural biopsy, flow cytometry: 1. No immunophenotypically abnormal T-cell or monoclonal B-c ell population ?? identified. 2. No increased blast population present (see Discussion). PRELIMINARY FLOW CYTOMETRY R EPORT; MORPHOLOGIC REVIEW PENDING. SEE SEPARATE REPORT FOR FINAL DIAGNOSIS. Electronically signed by: ?Trinh PIERCE, Alejandra Pimentel Verified: ??12/09/2020 14:25 ??Hematopathologist Performed at: ??-[facility] Dept. of Pathology, [place], [place] DISCUSSION The viability of lymphocytes in this pleural biopsy specimen as assessed by 7-AAD exclusion is approximately 35%. The majority of lymphocytes in the specimen are CD3+ T-cells (71% of lympho cytes; 33% of total cells) with a mixture of mature CD4+ and CD8+ forms (CD4:CD 8 ratio approximately 0.7) without aberrant loss or altered expression of del valle T-cell antige ns. CD3-/CD56+ NK cells constitute 26% of lymphocytes (12% of tota l cells). CD19+ B-cells account for 1% of lymphocytes (<1% of total cells) and ap pear to express surface light chains in a polytypic pattern (kappa:lambda appro ximately 1.4), thus there is no valerie immunophenotypic evidence for involvement of the pleura by a monoclonal B-cell lymphoproliferative neoplasm. No increased blast population is identified by CD 45/right angle light scatter gating, thus there is no evidence for acute leukemia. Although no immunophenotypically abnorm al lymphocyte populations are identified, flow cytometry will not routinely identify non-hematopoietic cells, monoclonal T-cell populations or Hodgkin lymphoma and may miss some B -cell lymphomas, thus correlation with morphologic review, which i s currently in progress and the results of which will be reported separately when av ailable, will be required for definitive diagnosis. Flow analysis is an ancillar y study. A definite diagnosis requires correlation with the morphologic features of this process and if necessary, correlation with other ancillary studies like immu nohistochemistry, enzyme cytochemistry and/or cyto/ molecular genetics. This test was developed and its performance ivis acteristics determined by the Clinical Flow Cytometry Lab oratory at [facility]. It has not been cleared or approve d by the U.S. Food and Drug Administration. ??The FDA has determined that such cleara nce or approval is not necessary. ??This test is used for clinical purposes. ??It orion uld not be regarded as investigational or for research. This laboratory is certifie d under the Clinical Laboratory Improvement Act of 1988 (CLIA) as qualified to perform high complexity clinic al laboratory testing. SPECIMEN PROCESSING [id number] Cells for immunophenotypic a nalysis were derived from pleural biopsy. CD45 vs side scatter gating was utilized to identify a lymphoid analysis region that comprises approximately 43-46% of all cells. The following markers were a ssessed: CD2, CD3, CD4, CD5, CD7, CD8, CD10, CD19, CD45, CD56, kappa light chain, and lambda light chain. . CLINICAL INFORMATION 75 yo man with lung mass. Flow cytometry evaluation for ly mphoma requested. Specimen (Source) Anatomical Collection Method Collection Time Re ceived Time Location / / Volume Laterality 12/09/2020 8:50 AM EDT Yesy Blum MD PATHOLOGY/CYTOLOGY ORDERABLE S Performing Organization Address City/State/[place] [address] Immunophenotyping Flow Cytometry (12/09/2020 8:50 AM EDT) Component Value Ref Test Analysis Performed At Patholo gist Range Method Time Signature Immunophenotyping See [facility] Flow Comment [facility] Comment: When completed by the Pathologist, the F low Cytometry Report ([id number]) will display under the Pathology Result s section within eDH. Specimen Anatomical Collection Method Collection Time Receive d Time (Source) Location / / Volume Laterality Other 12/09/2020 8:50 AM 1 9:33 EDT AM EDT Resulting Agency Comment Spec In Lab Yesy Blum MD HEMATOLOGY ORDERABLES Performing Organization Address City/State/ZIP Code Phon e Number [address] Specimen to Pathology (12/09/2020 8:48 AM EDT) Specimen Anatomical Collection Method Collection Time Receive d Time (Source) Location / / Volume Laterality AP Specimen 12/09/2020 8:48 AM 1 8:48 EDT AM EDT Narrative [facility] [place] 12/09/2020 8:48 AM EDT Specimen requisition ordered. ??Separate Pathology report to follow Yesy Blum MD PATHOLOGY/CYTOLOGY ORDERABLE S Performing Organization Address City/State/[place] [address] Specimen to Pathology (12/09/2020 8:43 AM EDT) Specimen Anatomical Collection Method Collection Time Receive d Time (Source) Location / / Volume Laterality AP Specimen 12/09/2020 8:43 AM 1 8:43 EDT AM EDT Narrative [facility] - 12/09/2020 8:43 AM EDT Specimen requisition ordered. ??Separate Pathology report to follow Yesy Blum MD PATHOLOGY/CYTOLOGY ORDERABLE S Performing Organization Address City/[facility]/[place] [address] Specimen to Pathology (12/09/2020 8:42 AM EDT) Specimen Anatomical Collection Method Collection Time Receive d Time (Source) Location / / Volume Laterality AP Specimen 12/09/2020 8:42 AM 1 8:42 EDT AM EDT Narrative [facility] [place] 12/09/2020 8:42 AM EDT Specimen requisition ordered. ??Separate Pathology report to follow Yesy Blum MD PATHOLOGY/CYTOLOGY ORDERABLE S Performing Organization Address [facility]/ZIP Code Phon e Number [address] Solid Tumor NGS Panel (12/09/2020 8:38 AM EDT) Specimen Anatomical Collection Method Collection Time Receive d Time (Source) Location / / Volume Laterality Tissue 12/09/2020 8:38 AM 4:19 EDT PM EDT Resulting Agency Comment Spec In Lab Yesy Blum MD PATHOLOGY/CYTOLOGY ORDERABLE S Performing Organization Address City/[facility]/ZIP Code Phon e Number [address] Surgical Pathology Report (12/09/2020 8:38 AM EDT) Component Value Ref Test Analysis Performed At [facility] gist Range Method Time Signature Surgical [id number] ? Location: [facility]; [facility]; A [facility] Report The signing pathologist has (i) examined the relevant preparation(s) for the [facility] specimen(s) and (ii) rendered or confirmed the diagnosis(es) . HOSPITAL LABORATORY . ? Addendum ADDENDUM DISCUSSION Tissue: Left pleural biopsy #3, biopsy Tumor Proportion Score (TPS): ?% Expression: 0 Interpretation Table: PD-L1 assay (22C3 pharmDX) for Keytruda Tumor Proportion Score (TPS): ? <1% ?PD-L1 Negative ? >=1% ? PD-L1 Expression Immunohistochemical assay wa s performed on paraffin-embedded tissue sections fixed in 10% neutral buffered for meredith for 6-72 hours using the polymer system technique with appropriate controls. The assay was performed according to the deli slicer's instructions using Anti-PD-L1 (22C3, pharmDX) antibody. Electronically signed by: ?Davina PIERCE PhD, Moreno Mai Verified: ??12/17/2020 12:33 ??Pathologist Performed at: ??-[facility] Dept. of Pathology, [place], [place] ?Surgic al Pathology DIAGNOSIS A - Left pleural biopsy #1 ?? for frozen section ??- Squamous cell carcinoma - ?? (see Discussion.) B - Left pleural biopsy #2 ?? for frozen section ??- Squamous cell carcinoma - ?? (see Discussion.) C - Left pleural biopsy #2, biopsy - Squamous cell carcinoma - ?? (see Discussion.) D - Left pleural biopsy #3, biopsy ??- Squamous cell carcinoma - ?? (see Discussion.) Electronically signed by: ?Rita Ibarra DO Verified: ??12/12/2020 8:22 ?? Pathologist Performed at: ??-[facility] Dept. of Pathology, [place], [place] DISCUSSION The tumor appears moderately differentiated. ??PDL1 has been ordered. ADDITIONAL STUDIES Immunohistochemistry Studies: Formalin-fixed, paraffin-emb edded tissue sections are studied using the polymer technique with appropriate positive and negative controls. ?These IHC studies provide the pathologist wit h adjunctive diagnostic information. Antibody specificity has been verified by testin g antibodies on a series of in-house tissues with known immunohistochemical perform ance characteristics. The clinical interpretation of any antibody positive stain ing or its absence is evaluated within the context of clinical presentation, morp hology, histopathological criteria and other diagnostic tests. Block ? Antibody ?Result (Positive /Negative) . ADDITIONAL STUDIES D1 ? P40 ?Positive i n lesional cells. D1 ? D240 ? Negative in lesi onal cells. SPECIMEN(S) SUBMITTED A - Left pleural biopsy #1 ?? for frozen section , biopsy (1 ) B - Left pleural biopsy #2 ?? for frozen section , biopsy (1 ) C - Left pleural biopsy #2, biopsy (1) D - Left pleural biopsy #3, biopsy (1) CLINICAL INFORMATION Effusion and masses SPECIMEN PROCESSING A - Labeled/Fixative: Left pleural biopsy #1, fresh. Quantity/Size: Fragments, 1.0 x 0.5 x 0.3 cm. Tissue Description: [place] white soft tissue. Sections/Processing: Scorer Single sections in 1 cassettes as follows: ?A1: ??FS-1 remnant soft tissue B - Labeled/Fixative: Left pleural biopsy #2, fresh. Quantity/Size: Single, 0.7 x 0.5 x 0.4 cm. Tissue Description: [place] white of tissue. Sections/Processing: Scorer Single sections in 1 cassettes as follows: ?B1: ??FS-1 remnant soft tissue C - Labeled/Fixative: Left pleural biopsy #2, fresh. Quantity/Size: Two, 0.7 x 0.6 x 0.3 cm in aggregate. Tissue Description: [place]-pink rubbery tissue. Sections/Processing: Entirely submitted in 1 cassette labeled C1. D - Labeled/Fixative: Left pleural biopsy #3, fresh. Quantity/Size: Two, 1.2 x 0.6 x 0.5 cm. Tissue Description: [place]-pink rubbery tissue. Sections/Processing: Entirely submitted in 1 cassette labeled D1. ??njrs ?Fro derrell Section FROZEN SECTION DIAGNOSIS FS A - Left pleural biopsy #1 ??for frozen section ??- Positive for malignancy, favor ?? non-small cell carcinoma. FSB - Left pleural biopsy #2 ?? for frozen section ??- Positive for malignancy, favor ?? non-small cell carcinoma. 12/09/20 09:07 Electronically signed by: ?Rita Ibarra DO Verified: ??12/09/2020 9:08 ?? Pathologist Performed at: ??-[facility] Dept. of Pathology, [place], [place] This intraoperative consultation should be interpreted as a preliminary diagnosis pending review of the entire specimen and sp ecial studies, if any. A final Surgical Pathology report will follow th is preliminary Frozen Section report(s). Specimen (Source) Anatomical Collection Method Collection Time Re ceived Time Location / / Volume Laterality 12/09/2020 8:38 AM EDT Yesy Blum MD PATHOLOGY/CYTOLOGY ORDERABLE S Performing Organization Address City/[facility]/[place] [address] Specimen to Pathology (12/09/2020 8:38 AM EDT) Specimen Anatomical Collection Method Collection Time Receive d Time (Source) Location / / Volume Laterality AP Specimen 12/09/2020 8:38 AM 8:38 EDT AM EDT Narrative [facility] - 12/09/2020 8:38 AM EDT Specimen requisition ordered. ??Separate Pathology report to follow Yesy Blum MD PATHOLOGY/CYTOLOGY ORDERABLE S Performing Organization Address City/[facility]/[place] [address] Non-Picker And Packer Final Report (12/09/2020 8:24 AM EDT) Component Value Ref Test Analysis Performed At [facility] gist Range Method Time Signature Non-Picker And Packer [id number] ? Location: [facility]; [facility]; [facility] Final Report [facility] The signing pathologist has (i) examined the relevant preparation(s) for the [facility] specimen(s) and (ii) rendered or confirmed the diagnosis(es) . HOSPITAL LABORATORY . ? No n-Picker And Packer Final DIAGNOSIS Positive for Malignancy Electronically signed by: ?Yumiko Clark MD Verified: ??12/12/2020 11:36 ??Pathologist Performed at: ??-[facility] Dept. of Pathology, [facility], [place], [place] DISCUSSION Pleural fluid, left (thoracentesis): Consistent with ??squamous cell carcinoma (see note). Note: The lesional cells are immunoreactive for p40 and CK5; they are negative for calretinin and TTF1. The im munostain findings support the diagnosis. Please see also the concurrent ??surgical ? ?specimen of left pleural ??biopsies ([id number]). PD[place] on ?? [id number]. --- Immunohistochemistry Studies --- Interpretation: See note. ? Immunohistochemical a ssays were performed (on paraffin-embedded cell block sections fixed in 10% neutr al buffered formalin for 6-72 hours) using the polymer technique with appropriate controls. The sections are studied for calretinin, p40, TTF1 and CK5. These immunohistochemical st udies provide ancillary information and are used only in conjunction with standard diagnostic procedures. ( Cell block was examined.) CLINICAL INFORMATION Specimen Source : Pleural fluid, left (thoracentesis) Pertinent Clinical Data and Significant Therapy: Effusion and masses Clinical Impression : Effusion and masses Pertinent Radiologic Findings ??: (not provided) Gross Description: Received ??fresh, approximat omar 28 mL total volume of ?? cloudy, bel fluid, with light flecks. Total Preparation: Liquid-Based Prep 1; Cell Block 1. Specimen (Source) Anatomical Collection Method Collection Time Re ceived Time Location / / Volume Laterality 12/09/2020 8:24 AM EDT Yesy Blum MD PATHOLOGY/CYTOLOGY ORDERABLE S Performing Organization Address City/State/ZIP Code Phon e Number [address] Cytopathology Non-Gynecological (12/09/2020 8:24 AM EDT) Specimen Anatomical Collection Method Collection Time Receive d Time (Source) Location / / Volume Laterality AP Specimen 12/09/2020 8:24 AM 8:24 EDT AM EDT Narrative [facility] - 12/09/2020 8:24 AM EDT Specimen requisition ordered. ??Separate Pathology report to follow Yesy Blum MD PATHOLOGY/CYTOLOGY ORDERABLE S Performing Organization Address City/State/[place] [address] COVID-19 PCR (12/09/2020 7:30 AM EDT) [facility] Method Time Signature SARS-CoV-2 Not Detected Not Detected WALTER RNA PCR [facility] Comment: This result should be interpreted in com bination with the clinical observations, patient history and epidem iological information. For testing of asymptomatic individuals, assay performa nce characteristics and clinical utility have not been evaluated. Testing for SARS-CoV-2 (Severe acute respiratory syndrome coronavirus 2, form erly known as 2019 novel coronavirus or 2019-nCoV) to aid in the diagnosis of CO VID-19 is performed using the Simplexa COVID-19 Direct Assay by [email or web address] as authorized by the FDA issued Emergency Use Authorization (EUA). This assay is intended for In-vitro Diagnostic (IVD) use with nasopharyngeal swabs collected from individuals meeting the CDC criteria for testing. e assay is performed based on the instructions for use and additional guid ance provided by the FDA. Testing is performed in the Microbiology Laboratory within the Department of Pathology and Laboratory Medicine at [facility], certified under the Clinical Laboratory Improvement Amendmen ts of 1988 (CLIA), 42 U.S.C. section 263a, to perform high complexity tests. Assay performance has been verified according to clinical laboratory regulat ory requirements. Test results are provided above. A resul t of Not Detected indicates that the viral RNA target is not present but does not preclude SARS-CoV-2 infection. False negative results may occur if a sp ecimen is improperly collected, transported or handled; if amplification inhibitors are present; or if inadequate numbers of viral particles ar e present in the specimen. A result of Detected suggests a current or recent infection and the patient is presumed to be infected. Positive and negative pr edictive values for this test are highly dependent on disease prevalence. A result of Invalid indicates the inability to conclusively determine the presence or absence of SARS-CoV-2 RNA in the sample which can be due to a vari ety of factors. Recollection is recommended in the case of an invalid re sult. CDC COVID-19 criteria for testing on hum an specimens and clinical management guidance information are available at th e CDC Coronavirus Disease 2019 (COVID-19) webpage under Information fo r Healthcare Professionals (https://www.cdc.gov/coronavirus/2019-nc ov/hcp/index.html). Additional information about this and ot her EUA tests can be found in provider and patient fact sheets at the following FDA website: https://www.fda.gov/medical-devices/wiaztglaalg-irwgpig-6032-tlpbn-94-grwzqhybq- bhs-jclzzkozuamcci-whjgsxn-devices/izrrj-slxvezfbffl-eoia SARS-CoV-2 Source [employer] Swab [facility] Specimen (Source) Anatomical Collection Method Collection Time Re ceived Time Location / / Volume Laterality Nasopharyngeal Swab 12/09/2020 7:30 12/09 AM EDT 9:13 AM EDT Comment: Symptoms->Surveillance Resulting Agency Comment Spec In Lab Yesy Blum MD MICROBIOLOGY - GENERAL ORDER RICARDO Performing Organization Address City/[facility] Phon e Number [address] POCT Glucose (12/09/2020 7:25 AM EDT) athologist Signature POC Glucose 83 65 - 199 [facility] Comment: Supplemental ranges: <140 mg/dL before meals <180 mg/dL all other times of the day Specimen Anatomical Collection Method Collection Time Receive d Time (Source) Location / / Volume Laterality Blood 12/09/2020 7:25 AM 7:25 EDT AM EDT Yesy Blum MD POINT OF CARE TEST ORDERABLE S Performing Organization Address City/[facility]/[place] [address] POCT Glucose (12/09/2020 6:15 AM EDT) P athologist Signature POC Glucose 78 65 - 199 [facility] Comment: Supplemental ranges: <140 mg/dL before meals <180 mg/dL all other times of the day Specimen Anatomical Collection Method Collection Time Receive d Time (Source) Location / / Volume Laterality Blood 12/09/2020 6:15 AM 6:15 EDT AM EDT Yesy Blum MD POINT OF CARE TEST ORDERABLE S Performing Organization Address City/[facility]/ZIP [place] [address] documented in this encounter Visit Diagnoses Diagnosis Pulmonary mass - Primary Swelling, mass, or lump in chest Pleural effusion, left Unspecified pleural effusion Mass of lower lobe of left lung Pleural effusion Unspecified pleural effusion Mass of lower lobe of left lung documented in this encounter Admitting Diagnoses Diagnosis Pleural effusion Unspecified pleural effusion documented in this encounter Administered Medications Inactive Administered Medications - up to 3 most recent administrations Medication Order MAR Action Action Date Dose Rate Site acetaminophen (Tylenol) tablet Given 12/09/2020 6:18 AM EDT 1,00 0 mg 1,000 mg 1,000 mg, Oral, ONCE, 1 dose, On Wed12/09/20 at 0630, Administer with SIP of H2O only., Day of Surgery (Day of Procedure), Routine acetaminophen (Tylenol) tablet 1,000 mg Given 12/11/2020 6:47 AM EDT 1,000 mg 1,000 mg, Oral, EVERY 6 HOURS SCHEDULED, First dose on Wed12/09/20 at 1200, Until Discontinued, Maximum dose of acetaminophen is 4000 mg from all sources in 24 hours. When ordered for pain, acetaminophen should be given even when other ordered pain medications are indicated., Recovery (Recovery-Hospital Unit), Routine Given 12/10/2020 6:30 PM EDT 1,000 mg Given 12/10/2020 11:13 AM EDT 1,000 mg atorvastatin (Lipitor) tablet 10 mg Given 12/10/2020 4:54 PM EDT 10 mg 10 mg, Oral, EVERY EVENING, First dose on Wed12/09/20 at 1715, Until Discontinued, Routine Given 12/09/2020 5:59 PM EDT 10 mg bisacodyL (Dulcolax) suppository 10 mg Given 12/10/2020 1:54 PM EDT 10 mg 10 mg, Rectal, 3 TIMES DAILY PRN, Starting on Wed12/10/20 at 1305, Until Wed12/11/20 at 1354, Constipation, Routine dextrose 10% infusion 250 mL, at 1,000 mL/hr, Intravenous, DRAKE RY 30 MIN PRN, Starting on Wed12/10/20 at 1538, Until Wed12/11/20 at 1354, For BG 50-70 mg/dL: Oral treatment preferred: If able to drink, give 120 mL Juice or R egular (not diet) soda OR If NPO, give 15 gram glucose 40% oral gel massaged into buccal mucosa OR if unconscious or uncooperative, give 25 gram (250 mL) Dex trose 10% IV over 15 minutes per protocol OR, if no IV access, 1 mg Glucagon IM. * * For BG less than 50 mg/dL: Oral treatment preferred: If able to drink, give 240 mL Juice or Regu lar (not diet) soda OR If NPO, give 30 gram glucose 40% oral gel m assaged in buccal mucosa OR if unconscious or uncooperative, give 25 gram (250 mL) Dextrose 10% I V over 15 minutes per protocol OR, if no IV access, 1 mg Glucagon IM. Rech alena BG in 30 minutes. May repeat juice/soda, gel, dextrose or gluc agon once per episode. For persistent hypoglycemia, consider longer-acting treatment for the duration of the active insulin. docusate sodium (Colace) capsule 100 mg Given 12/11/2020 8:32 AM EDT 100 mg 100 mg, Oral, 3 TIMES DAILY, First dose on Wed12/09/20 at 1715, Until Discontinued, Routine Given 12/10/2020 8:58 PM EDT 100 mg Given 12/10/2020 1:54 PM EDT 100 mg FLUoxetine (PROzac) capsule 10 mg Given 12/11/2020 8:32 AM EDT 10 mg 10 mg, Oral, DAILY, First dose on Wed12/09/20 at 1715, Until Discontinued, Routine Given 12/10/2020 8:47 AM EDT 10 mg Given 12/09/2020 5:59 PM EDT 10 mg glucagon (Glucagen) (1 mg/mL) injection solution 1 mg 1 mg, Intramuscular, EVERY 30 MIN PRN, S tarting on Wed12/10/20 at 1538, Until Wed12/11/20 at 1354, Low blood sugar, For BG 50-70 mg/dL: Oral treatment preferred: If able to drink, give 120 mL Juice or R egular (not diet) soda OR If NPO, give 15 gram glucose 40% oral gel massaged into buccal mucosa OR if unconscious or uncooperative, give 25 gram (250 mL) Dex trose 10% IV over 15 minutes per protocol OR, if no IV access, 1 mg Glucagon IM. * * For BG less than 50 mg/dL: Oral treatment preferred: If able to drink, give 240 mL Juice or Regu lar (not diet) soda OR If NPO, give 30 gram glucose 40% oral gel m assaged in buccal mucosa OR if unconscious or uncooperative, give 25 gram (250 mL) Dextrose 10% I V over 15 minutes per protocol OR, if no IV access, 1 mg Glucagon IM. Rech alena BG in 30 minutes. May repeat juice/soda, gel, dextrose or gluc agon once per episode. For persistent hypoglycemia, consider longer-acting treatment for the duration of the active insulin., Routine glucose (GLUTOSE) 40% oral geL 15-30 g, Buccal, EVERY 30 MIN PRN, Starting on 11/21 at 1538, Until Wed12/11/20 at 1354, Low blood sugar, For BG 50-70 mg/dL: Oral treatment preferred: If able to drink, give 120 mL Juice or R egular (not diet) soda OR If NPO, give 15 gram glucose 40% oral gel massaged into buccal mucosa OR if unconscious or uncooperative, give 25 gram (250 mL) Dex trose 10% IV over 15 minutes per protocol OR, if no IV access, 1 mg Glucagon IM. * * For BG less than 50 mg/dL: Oral treatment preferred: If able to drink, give 240 mL Juice or Regu lar (not diet) soda OR If NPO, give 30 gram glucose 40% oral gel m assaged in buccal mucosa OR if unconscious or uncooperative, give 25 gram (250 mL) Dextrose 10% I V over 15 minutes per protocol OR, if no IV access, 1 mg Glucagon IM. Rech alena BG in 30 minutes. May repeat juice/soda, gel, dextrose or gluc agon once per episode. For persistent hypoglycemia, consider longer-acting treatment for the duration of the active insulin. 1 tube contains 15 grams of glucose (net weig ht of tube = 37.5 grams., Routine heparin (porcine) (5,000 Given 12/09/2020 7:03 AM EDT 5,000 Unit s Abdominal Tissue units/1 mL) subcutaneous injection 5,000 Units 5,000 Units, Subcutaneous, BOTTOM SANDER TO O.R., 1 dose, On Wed12/09/20 at 0715, Routine heparin (porcine) (5,000 units/1 mL) Given 12/11/2020 6:47 AM ED T 5,000 Units subcutaneous injection 5,000 Units 5,000 Units, Subcutaneous, EVERY 8 HOURS SCHEDULED, First dose on Wed12/09/20 at 1715, Until Discontinued, Routine Given 12/10/2020 8:57 PM EDT 5,000 Units Given 12/10/2020 1:10 PM EDT 5,000 Units Abdom inal Tissue insulin glargine (Lantus) (100 unit/mL) Given 12/10/2020 8:57 PM EDT 13 Units subcutaneous injection vial 13 Units 13 Units (rounded from 12.5 Units), Subcutaneous, NIGHTLY, First dose on Wed12/09/20 at 2100, Until Discontinued, Routine Given 12/09/2020 8:26 PM EDT 13 Units insulin lispro (HumaLOG;Admelog) (100 Given 12/11/2020 8:32 AM E DT 2 Units unit/mL) subcutaneous injection vial 0-6 Units 0-6 Units, Subcutaneous, 3 TIMES DAILY WITH MEALS, First dose on Wed12/10/20 at 1700, Until Discontinued, MEAL ASSOCIATED Give 1 unit for every 20 grams carbohydrate. Hold if not eating or if BG less than 70 mg/dL., Routine Given 12/10/2020 6:25 PM EDT 1 Units insulin lispro (HumaLOG;Admelog) (100 Given 12/10/2020 1:07 PM E DT 1 Units unit/mL) subcutaneous injection vial 0-8 Units 0-8 Units, Subcutaneous, 3 TIMES DAILY WITH MEALS, First dose on Wed12/09/20 at 1200, Until Discontinued, MEAL ASSOCIATED Give 1 unit for every 10 grams carbohydrate. Hold if not eating or if BG less than 70 mg/dL., Routine Given 12/10/2020 8:47 AM EDT 2 Units Given 12/09/2020 6:00 PM EDT 4 Units insulin lispro (HumaLOG;Admelog) (100 Given 12/10/2020 8:57 PM E DT 1 Units unit/mL) subcutaneous injection vial 1-4 Units 1-4 Units, Subcutaneous, EVERY 4 HOURS SCHEDULED, First dose on Wed12/10/20 at 1630, Until Discontinued, CORRECTION BOLUS [1-4 Units] Sensitive Sliding Scale (BG in mg/dL): Correction factor 40 (1 unit of insulin is expected to drop the glucose 40 mg/dL) BG 160 - 200 Give 1 unit BG 201 - 240 Give 2 units BG 241 - 280 Give 3 units BG greater than 280, give 4 units and recheck BG in 2 hours. - If recheck BG is LESS than 280, give no insulin and resume schedule - If recheck BG is GREATER than 280, give 4 units and repeat BG in 2 hours (no more than 3 times) & call for new insulin orders. DO NOT hold if NPO, unless specifically directed to do so by written order. Per Blood Glucose Monitoring Policy, re-check a BG of > 240 mg/dL in 2 hours., Routine Given 12/10/2020 6:53 PM EDT 4 Units Given 12/10/2020 4:53 PM EDT 3 Units insulin lispro (HumaLOG;Admelog) (100 Given 12/10/2020 11:13 AM EDT 1 Units unit/mL) subcutaneous injection vial 1-5 Units 1-5 Units, Subcutaneous, EVERY 4 HOURS SCHEDULED, First dose (after last modification) on Wed12/09/20 at 1800, Until Discontinued, CORRECTION BOLUS [1-4 Units] Sensitive Sliding Scale (BG in mg/dL): Correction factor 40 (1 unit of insulin is expected to drop the glucose 40 mg/dL) BG 160 - 200 Give 1 unit BG 201 - 240 Give 2 units BG 241 - 280 Give 3 units BG greater than 280, give 4 units and recheck BG in 2 hours. - If recheck BG is LESS than 280, give no insulin and resume schedule - If recheck BG is GREATER than 280, give 4 units and repeat BG in 2 hours (no more than 3 times) & call for new insulin orders. DO NOT hold if NPO, unless specifically directed to do so by written order. Per Blood Glucose Monitoring Policy, re-check a BG of > 240 mg/dL in 2 hours., Routine Given 12/09/2020 11:16 PM EDT 1 Units Given 12/09/2020 8:25 PM EDT 1 Units lactated ringers infusion New Bag 12/09/2020 10:03 AM EDT 1,000 mLs 100 mL/hr 1,000 mL, at 100 mL/hr, Intravenous, CONTINUOUS, Starting on Wed12/09/20 at 0630, Until Wed12/09/20 at 1150, Day of Surgery (Day of Procedure) New Bag 12/09/2020 9:33 AM EDT New Bag 12/09/2020 6:30 AM EDT 1,000 mLs 100 mL/hr lactated ringers infusion New Bag 12/09/2020 10:08 AM EDT 75 mL/hr 75 mL/hr 75 mL/hr, Intravenous, CONTINUOUS, Starting on Wed12/09/20 at 1015, Until Wed12/09/20 at 1414, Recovery (Recovery-Hospital Unit) latanoprost (Xalatan) 0.005 % ophthalmic Given 12/10/2020 8:58 P M EDT 1 drop solution 1 drop 1 drop, Both Eyes, NIGHTLY, First dose on Wed12/09/20 at 2100, Until Discontinued, Routine Given 12/09/2020 8:27 PM EDT 1 drop lidocaine (Lidoderm) 5% Patch Applied 12/10/2020 11:13 AM 1 patch 11- Chest patch 1 patch EDT (Left) 1 patch, Transdermal, EVERY 24 HOURS, First dose on Wed12/09/20 at 1130, Until Discontinued, Apply patch(es) for 12 hours, and then remove for 12 hours., Recovery (Recovery-Hospital Unit), Routine Patch Applied 12/09/2020 11:40 AM EDT 1 patch 11- Chest (Left) lidocaine (Lidoderm) topical patch REMOV AL Transdermal, EVERY 24 HOURS, First dose on Wed12/09/20 at 2145, Until Discontinued, Remove lidocaine 5% patch, Recovery (Recovery-Hospital Unit) losartan (Cozaar) tablet 50 mg Given 12/11/2020 8:32 AM EDT 50 mg 50 mg, Oral, DAILY, First dose on Wed12/09/20 at 1715, Until Discontinued, Routine Given 12/10/2020 8:47 AM EDT 50 mg Given 12/09/2020 5:59 PM EDT 50 mg polyethylene glycoL (Miralax) packet 17 g Given 12/10/2020 8:57 PM EDT 17 g 17 g, Oral, DAILY PRN, Starting on Wed12/10/20 at 1554, Until Wed12/11/20 at 1354, Constipation, Routine senna (Senokot) tablet 17.2 mg Given 12/10/2020 4:54 PM EDT 17.2 mg 17.2 mg, Oral, EVERY EVENING, First dose on Wed12/10/20 at 1700, Until Discontinued, Routine sodium chloride 0.9 % (flush) (BD PosiFlush Given 12/11/2020 8:3 3 AM EDT 5 mLs Normal Saline 0.9) flush 5 mL 5 mL, Intravenous, 2 TIMES DAILY, First dose on Wed12/09/20 at 2100, Until Discontinued, Recovery (Recovery-Hospital Unit), Routine Given 12/10/2020 8:57 PM EDT 5 mLs Given 12/10/2020 8:47 AM EDT 5 mLs tamsulosin (Flomax) capsule 0.4 mg Given 12/11/2020 8:32 AM EDT 0.4 mg 0.4 mg, Oral, DAILY, First dose on Wed12/10/20 at 0900, Until Discontinued, DO NOT CRUSH OR OPEN, Routine Given 12/10/2020 8:47 AM EDT 0.4 mg timoloL (Timoptic) 0.25 % ophthalmic solution Given 8:35 AM EDT 1 drop 1 drop 1 drop, Both Eyes, 2 TIMES DAILY, First dose on Wed12/09/20 at 2100, Until Discontinued, Routine Given 12/10/2020 8:58 PM EDT 1 drop Given 12/10/2020 8:46 AM EDT 1 drop documented in this encounter Active and Recently Administered Medications Times are shown in EDT. Scheduled Medication Order 12/09/2020 12/10/2020 12/11/2020 acetaminophen (Tylenol) tablet 1,000 mg (COMPLETED) 06 18 (Given - Provider: Elizabeth Murillo RN) 1,000 mg, Oral, ONCE, 1 dose, On 11/21 at 0630, Administer with SIP of H2O only., Day of Surgery (Day of Procedure), Routine acetaminophen (Tylenol) tablet 1,000 mg 1140 (Given - Provider: Maylin Fisher RN)1759 (Given - Provider: Lou Esparza RN)2316 (Given - Provider: Charlette Romero RN) 0545 (Given - Provider: Charlette johnson RN)1113 (Given - Provider: Eli Garcia RN)1830 (Given - Provider: Kim Newell RN) 0000 (Not Given - Provider: Charlette Romero RN - Reason: Patient/family refused)0647 (Given - Provider: Charlette Romero RN) 1,000 mg, Oral, EVERY 6 HOURS SCHEDULED, First dose on Wed12/09/20 at 1200, Until Discontinued, Maximum dose of acetaminophen is 4000 mg from all sources in 24 hours. When ordered for pain, acetaminophe n should be given even when other ordere d pain medications are indicated., Recovery (Recovery-Hospital Unit), Routine atorvastatin (Lipitor) tablet 10 mg 1758 (Given - Prov ider: Lou Esparza RN) 1654 (Given - Provider: Kim Newell RN) 10 mg, Oral, EVERY EVENING, First dose o n Wed12/09/20 at 1715, Until Discontinued, Routine ceFAZolin (Ancef) 2 g in dextrose 5% 100 mL (2 x 1 g/50 mL premix bags) infusion (COMPLETED) 0759 (Given - Provider: Quan Pickering MD) 2 g, Intravenous, BOTTOM SANDER TO O.R., 1 dos e, On Wed12/09/20 at 0715, Administer over 30 Minutes, Total dose of ceFAZolin 2 grams, administered using two ceFAZolin 1g/50mL IV bags. Infuse each ceFAZolin 1g /50mL bag over 30 minutes (100 ml/hr) fo r total infusion time of 60 minutes. On the MAY, document administration of first bag using New Bag (1 of 2) MAR action for dose of 1g. On the MAR, document adm inistration of second bag using Next Ba g (2 of 2) MAR action for dose of 1g (resulting in total dose of 2g)., Indication for (Active or Suspected): Prophylaxis docusate sodium (Colace) capsule 100 mg 175 (Given - Provider: Lou Esparza RN)2027 (Given - Provider: Charlette Romero RN) 0847 (Given - Provider: Eli Garcia RN)1354 (Given - Provider: Eli Garcia RN)2058 (Given - Provider: Charlette Romero, TAMMY) 0832 (Given - Provider: Shirley Mccall, TAMMY) 100 mg, Oral, 3 TIMES DAILY, First dose on Wed12/09/20 at 1715, Until Discontinued, Routine FLUoxetine (PROzac) capsule 10 mg 1759 (Given - Provid er: Lou Esparza RN) 0847 (Given - Provider: Eli Garcia RN) 0832 (Gi carlos - Provider: Shirley Mccall, TAMMY) 10 mg, Oral, DAILY, First dose on Wed at 1715, Until Discontinued, Routine heparin (porcine) (5,000 units/1 mL) sub cutaneous injection 5,000 Units (COMPLETED) 0703 (Given - Provider: Elizabeth Murillo RN) 5,000 Units, Subcutaneous, BOTTOM SANDER TO O. R., 1 dose, On Wed12/09/20 at 0715, Routine heparin (porcine) (5,000 units/1 mL) subcutaneous inje ction 5,000 Units 1800 (Given - Provider: Lou Esparza RN)2025 (Given - Provider: Charlette Romero RN) 0545 (Given - Provider: Charlette johnson RN)1310 (Given - Provider: Eli Garcia RN)2056 (Given - Provider: Charlette Romero RN) 0647 (Given - Provider: Charlette Romero, RN) 5,000 Units, Subcutaneous, EVERY 8 HOURS SCHEDULED, First dose on Wed12/09/20 at 1715, Until Discontinued, Routine insulin glargine (Lantus) (100 unit/mL) subcutaneous i njection vial 13 Units 2025 (Given - Provider: Charlette Romero, RN) 2056 (Given - Provider: Charlette Romero RN) 13 Units (rounded from 12.5 Units), Subc utaneous, NIGHTLY, First dose on Wed12/09/20 at 2100, Until Discontinued, Routine insulin lispro (HumaLOG;Admelog) (100 un it/mL) subcutaneous injection vial 0-6 Units 1825 (Given - Provider: Kim chilel RN) 0832 (Given - Provider: Shirley Mccall, TAMMY) 0-6 Units, Subcutaneous, 3 TIMES DAILY W ITH MEALS, First dose on Wed12/10/20 at 1700, Until Discontinued, MEAL ASSOCIATED Give 1 unit for every 20 grams carbohydrate. Hold if not eating or if BG less than 70 mg/dL., Routine insulin lispro (HumaLOG;Admelog) (100 un it/mL) subcutaneous injection vial 0-8 Units (CANCELED) 1150 (Not Given - Provider: Maylin light RN - Reason: Order parameters not met)1800 (Given - Provider: Lou Esparza RN) 0847 (Given - Provider: Eli Garcia RN)1307 (Given - Provider: Eli Garcia RN) 0-8 Units, Subcutaneous, 3 TIMES DAILY W ITH MEALS, First dose on Wed12/09/20 at 1200, Until Discontinued, MEAL ASSOCIATED Give 1 unit for every 10 grams carbohydrate. Hold if not eating or if BG less than 70 mg/dL., Routine insulin lispro (HumaLOG;Admelog) (100 un it/mL) subcutaneous injection vial 1-4 Units(Linked Group 1) 1653 (Given - Provider: Vinh Newell RN)1853 (Given - Provider: Kim Newell RN)2057 (Given - Provider: Charlette Romero RN) 0000 (Not Given - Provider: Charlette Romero RN - Reason: Order parameters not met)0400 (Not Given - Provider: Charlette Romero RN - Reason: Order parameters not met) 1-4 Units, Subcutaneous, EVERY 4 HOURS S CHEDULED, First dose on Wed12/10/20 at 1630, Until Discontinued, CORRECTION BOLUS [1-4 Units] Sensitive Sliding Scale (BG in mg/dL): Correction factor 40 (1 u 0800 (Not Given - Provider: Shirley Mccall RN - Reason: Order parameters not met) nit of insulin is expected to drop the g lucose 40 mg/dL) BG 160 - 200 Give 1 unit BG 201 - 240 Give 2 units BG 241 - 280 Give 3 units BG greater than 280, give 4 units and recheck BG in 2 hours. - If re check BG is LESS than 280, give no insul in and resume schedule - If recheck BG is GREATER than 280, give 4 units and repeat BG in 2 hours (no more than 3 times) & call for new insulin orders. DO NOT hold if NPO, unless specifically direct ed to do so by written order. Per Blood Glucose Monitoring Policy, re-check a BG of > 240 mg/dL in 2 hours., Routine insulin lispro (HumaLOG;Admelog) (100 un it/mL) subcutaneous injection vial 1-5 Units (CANCELED) 172 (Given - Provider: Lou Haas on, RN - Comment: BG 339)2024 (Given - Provider: Charlette Romero RN - Comment: per pt request)2316 (Given - Provider: Charlette Romero RN) 0400 (Not Given - Provider: Charlette Romero RN - Reason: Patient/family refused)0800 (Not Given - Provider: Eli Garcia RN - Reason: Order parameters not met)1113 (Given - Provider: Eli Garcia RN - Comment: 174 per patient monitor) 1-5 Units, Subcutaneous, EVERY 4 HOURS S CHEDULED, First dose (after last modification) on Wed12/09/20 at 1800, Until Discontinued, CORRECTION BOLUS [1-4 Units] Sensitive Sliding Scale (BG in mg/dL): Correction factor 40 (1 unit of insulin is expected to drop the glucose 40 mg/dL) BG 160 - 200 Give 1 unit BG 201 - 240 Give 2 units BG 241 - 280 Give 3 units BG greater than 280, give 4 units and rech alena BG in 2 hours. - If recheck BG is LE SS than 280, give no insulin and resume schedule - If recheck BG is GREATER than 280, give 4 units and repeat BG in 2 hours (no more than 3 times) & call for new insulin orders. DO NOT hold if NPO, unless specifically directed to do so by written order. Per Blood Glucose Monitoring Policy, re-check a BG of > 240 mg/dL in 2 hours., Routine latanoprost (Xalatan) 0.005 % ophthalmic solution 1 dr cuellar 2026 (Given - Provider: Charlette Romero RN) 2057 (Given - Provider: Charlette Romero RN) 1 drop, Both Eyes, NIGHTLY, First dose o n Wed12/09/20 at 2100, Until Discontinued, Routine lidocaine (Lidoderm) 5% patch 1 patch(Linked Group 2) 1140 (Patch Applied - Provider: Maylin Fisher RN) 1113 (Patch Applied - Provider: Eli Garcia, TAMMY) 1130 (Not Given - Provider: Shirley Mccall RN - Reason: Patient/family refused) 1 patch, Transdermal, EVERY 24 HOURS, Fi rst dose on Wed12/09/20 at 1130, Until Discontinued, Apply patch(es) for 12 hours, and then remove for 12 hours., Recovery (Recovery-Hospital Unit), Routine lidocaine (Lidoderm) topical patch REMOVAL(Linked Grou p 2) 2144 (Patch Removed - Provider: Charlette Romero RN) 2144 (Patch Removed - Provider: Brent Romero RN) Transdermal, EVERY 24 HOURS, First dose on Wed12/09/20 at 2145, Until Discontinued, Remove lidocaine 5% patch, Recovery (Recovery-Hospital Unit) losartan (Cozaar) tablet 50 mg 1758 (Given - Provider: Josefina Esparza RN) 0847 (Given - Provider: Eli Garcia, TAMMY) 0832 (Given - Provider: Shirley Mccall RN) 50 mg, Oral, DAILY, First dose on Wed at 1715, Until Discontinued, Routine senna (Senokot) tablet 17.2 mg 1653 (Giv en - Provider: Kim Newell, TAMMY) 17.2 mg, Oral, EVERY EVENING, First dose on Wed12/10/20 at 1700, Until Discontinued, Routine sodium chloride 0.9 % (flush) (BD PosiFlush Normal Kirill ine 0.9) flush 5 mL 2026 (Given - Provider: Charlette Romero RN) 0847 (Given - Provider: Eli Garcia, TAMMY)2056 (Given - Provider: Charlette Romero RN) 0833 (Given - Provider: Shirley Mccall, TAMMY) 5 mL, Intravenous, 2 TIMES DAILY, First dose on Wed12/09/20 at 2100, Until Discontinued, Recovery (Recovery-Hospital Unit), Routine tamsulosin (Flomax) capsule 0.4 mg 0847 (Given - Provider: Eli Garcia, TAMMY) 0832 (Given - Provider: Shirley cazares, TAMMY) 0.4 mg, Oral, DAILY, First dose on Wed at 0900, Until Discontinued, DO NOT CRUSH OR OPEN, Routine timoloL (Timoptic) 0.25 % ophthalmic solution 1 drop 2 027 (Given - Provider: Charlette Romero, RN) 0846 (Given - Provider: Eli Garcia , TAMMY)2057 (Given - Provider: Charlette Romero, RN) 0835 (Given - Provider: Shirley cazares, TAMMY) 1 drop, Both Eyes, 2 TIMES DAILY, First dose on Wed12/09/20 at 2100, Until Discontinued, Routine Continuous Medication Order 12/09/2020 12/10/2020 12/11/2020 lactated ringers infusion (CANCELED) 0630 (New Bag - P rovider: Elizabeth Murillo RN)0932 (Paused - Provider: Quan Pickering MD - Comment: Switch to gravity)0933 (New Bag - Provider: Quan Pickering MD)1003 (New Bag - Provider: Maylin Fisher, TAMMY) 1,000 mL, at 100 mL/hr, Intravenous, CON TINUOUS, Starting on Wed12/09/20 at 0630, Until Wed12/09/20 at 1150, Day of Surgery (Day of Procedure) lactated ringers infusion (CANCELED) 1008 (New Bag - P rovider: Maylin Fisher, TAMMY)1400 (Stopped - Provider: Lou Esparza RN) 75 mL/hr, at 75 mL/hr, Intravenous, CONT INUOUS, Starting on Wed12/09/20 at 1015, Until Wed12/09/20 at 1414, Recovery (Recovery-Hospital Unit) PRN Medication Order 12/09/2020 12/10/2020 12/11/2020 bisacodyL (Dulcolax) suppository 10 mg 1 354 (Given - Provider: Eli Garcia RN) 10 mg, Rectal, 3 TIMES DAILY PRN, Starti ng on Wed12/10/20 at 1305, Until Wed12/11/20 at 1354, Constipation, Routine BUpivacaine (pf) (Marcaine) (5 mg/mL) 0.5% injection ( CANCELED) 907 (Given - Provider: Yesy Blum MD)09 (Given - Provider: Yesy Blum MD) ONCE PRN, Starting on Wed12/09/20 at 090 8, Until Wed12/11/20 at 1354, Intra- Operative (Intra-Procedure), Routine dextrose 10% infusion(Linked Group 3) 250 mL, at 1,000 mL/hr, Intravenous, DRAKE RY 30 MIN PRN, Starting on Wed12/10/20 at 1538, Until Wed12/11/20 at 1354, For BG 50-70 mg/dL: Oral treatment preferred: If able to drink, give 120 mL Juice or Regular (not diet) soda OR If NPO, give 15 gram glucose 40% oral gel massaged into buccal mucosa OR if unconscious or uncooperative, give 25 gram (250 mL) Dextrose 10% IV over 15 minutes per protocol O R, if no IV access, 1 mg Glucagon IM. For BG less than 50 mg/dL: Oral treatment preferred: If able to drink, give 240 mL Juice or Regular (not diet) soda OR If NPO, give 30 gram glucose 40% oral gel massaged in buccal mucosa OR if unconsci ous or uncooperative, give 25 gram (250 mL) Dextrose 10% IV over 15 minutes per protocol OR, if no IV access, 1 mg Glucagon IM. Recheck BG in 30 minutes. May re peat juice/soda, gel, dextrose or glucag on once per episode. For persistent hypoglycemia, consider longer-acting treatment for the duration of the active insulin. glucagon (Glucagen) (1 mg/mL) injection solution 1 mg(Linked Stefano up 3) 1 mg, Intramuscular, EVERY 30 MIN PRN, S tarting on Wed12/10/20 at 1538, Until Wed12/11/20 at 1354, Low blood sugar, For BG 50-70 mg/dL: Oral treatment preferred: If able to drink, give 120 mL Juice o r Regular (not diet) soda OR If NPO, giv e 15 gram glucose 40% oral gel massaged into buccal mucosa OR if unconscious or uncooperative, give 25 gram (250 mL) Dextrose 10% IV over 15 minutes per protocol OR, if no IV access, 1 mg Glucagon IM. * * For BG less than 50 mg/dL: Oral treatment preferred: If able to drink, give 240 mL Juice or Regular (not diet) soda OR If NPO, give 30 gram glucose 40% oral gel massaged in buccal mucosa OR if unconsc ious or uncooperative, give 25 gram (250 mL) Dextrose 10% IV over 15 minutes per protocol OR, if no IV access, 1 mg Glucagon IM. Recheck BG in 30 minutes. May r epeat juice/soda, gel, dextrose or gluca angela once per episode. For persistent hypoglycemia, consider longer-acting treatment for the duration of the active insulin., Routine glucose (GLUTOSE) 40% oral geL(Linked Group 3) 15-30 g, Buccal, EVERY 30 MIN PRN, Start ing on Wed12/10/20 at 1538, Until Wed12/11/20 at 1354, Low blood sugar, For BG 50-70 mg/dL: Oral treatment preferred: If able to drink, give 120 mL Juice or Re gular (not diet) soda OR If NPO, give 15 gram glucose 40% oral gel massaged into buccal mucosa OR if unconscious or uncooperative, give 25 gram (250 mL) Dextrose 10% IV over 15 minutes per protocol OR, if no IV access, 1 mg Glucagon IM. Fo r BG less than 50 mg/dL: Oral treatment preferred: If able to drink, give 240 mL Juice or Regular (not diet) soda OR If NPO, give 30 gram glucose 40% oral gel mas saged in buccal mucosa OR if unconscious or uncooperative, give 25 gram (250 mL) Dextrose 10% IV over 15 minutes per protocol OR, if no IV access, 1 mg Glucagon IM. Recheck BG in 30 minutes. May repea t juice/soda, gel, dextrose or glucagon once per episode. For persistent hypoglycemia, consider longer-acting treatment for the duration of the active insulin. 1 tube contains 15 grams of glucose (net weight of tube = 37.5 grams., Routine lidocaine (Xylocaine) 1% (10 mg/mL) injection 3 mg 3 mg (0.3 mL), Subcutaneous, ONCE PRN, 1 dose, Starting on Wed12/09/20 at 1628, Until Wed12/11/20 at 1354, for discomfort with PIV insertion, Recovery (Recovery-Hospital Unit), Routine polyethylene glycoL (Miralax) packet 17 g 2056 (Given - Provider: Charlette Romero RN) 17 g, Oral, DAILY PRN, Starting on Wed at 1554, Until Wed12/11/20 at 1354, Constipation, Routine sodium chloride 0.9 % (flush) (BD PosiFlush Normal Saline 0.9) f lush 5-20 mL 5-20 mL, Intravenous, EVERY 1 MIN PRN, S tarting on Wed12/09/20 at 1628, Until Wed12/11/20 at 1354, flush, Flush pertains to all indwelling lines. Flush per protocol found in the job aid using the link p rovided on this medication record., Recovery ([facility]), Routine sterile talc intrapleural instillation (CANCELED) 848 (Given - Provider: Yesy Blum MD) ONCE PRN, Starting on Wed12/09/20 at 084 9, Until Wed12/11/20 at 1354, Intra- Operative (Intra-Procedure), Routine Linked Groups Order Group 1: POCT Fingerstick Glucose (CANCELED) Routine, EVERY 4 HOURS, First occurrence on Wed12/10/20 at 1545, Until Specified
Consider choosing EVERY 4 HOURS as frequency for: - Type 1 Diabetes - At least 24 hours after coming off an insu laura drip - At least 24 hours after admis vamsi for DKA - Hypoglycemia unawareness - Patients who are otherwise unstable Select the same frequency for the correction bolus insulin order And insulin lispro (HumaLOG;Admelog) (100 unit/mL) subcutaneous injection vial 1-4 UnitsJump to med 1-4 Units, Subcutaneous, EVERY 4 HOURS S CHEDULED, First dose on Wed12/10/20 at 1630, Until Discontinued
CORRECTION BOLUS [1-4 Units] Sensitive Sliding Scale (BG in mg/dL): Correcti on factor 40 (1 unit of insulin is expec sveta to drop the glucose 40 mg/dL) BG 160 - 200 Give 1 unit BG 201 - 240 Give 2 units BG 241 - 280 Give 3 units BG greater than 280, give 4 units and re check BG in 2 hours. - If recheck BG is LESS than 280, give no insulin and resume schedule - If recheck BG is GREATER than 280, give 4 units an d repeat BG in 2 hours (no more than 3 t imes) & call for new insulin orders. DO NOT hold if NPO, unless specifically directed to do so by written order.&am p;nbsp; Per Blood Gluco se Monitoring Policy, re-check a BG of > 240 mg/dL in 2 hours.
Routine Group 2: lidocaine (Lidoderm) 5% patch 1 patchJump to med 1 patch, Transdermal, EVERY 24 HOURS, Fi rst dose on Wed12/09/20 at 1130, Until Discontinued
Apply patch(es) for 12 hours, and then remove for 12 hours.
Recovery ([facility]), Routine And lidocaine (Lidoderm) topical patch REMOVALJump to med Transdermal, EVERY 24 HOURS, First dose on Wed12/09/20 at 2145, Until Discontinued
Remove lidocaine 5% patch
Recovery ([facility]) Group 3: glucose (GLUTOSE) 40% oral geLJump to med 15-30 g, Buccal, EVERY 30 MIN PRN, Start ing on Wed12/10/20 at 1538, Until Wed12/11/20 at 1354, Low blood sugar
For BG 50-70 mg/dL: Oral treatment preferred: If able to drink, give 1 20 mL Juice or Regular (not diet) soda O R If NPO, give 15 gram glucose 40% oral gel massaged into buccal mucosa OR if unconscious or uncooperative, give 25 gram (250 mL) Dextrose 10% I V over 15 minutes per protocol OR, if no IV access, 1 mg Glucagon IM. For BG less than 50 mg/dL: Oral treatment preferred: If able to drink, give 240 mL Juice or Regular (n ot diet) soda OR If NPO, give 30 gram&nb sp;glucose 40% oral gel massaged in buccal mucosa OR if unconscious or uncooperative, give 25 gram (250 mL) Dextrose 10% IV over 15 minutes per&n bsp;protocol OR, if no IV access, 1 mg G lucagon IM. Recheck BG in 30 minutes. May repeat juice/soda, gel, dextrose or glucagon once per episode. For persistent hypoglycemia, consider longer-acting eduardo atment for the duration of the active insulin. 1 tube contains 15 grams of glucose (net weight of tube = 37.5 grams.
Routine Or dextrose 10% infusionJump to med 250 mL, at 1,000 mL/hr, Intravenous, DRAKE RY 30 MIN PRN, Starting on Wed12/10/20 at 1538, Until Wed12/11/20 at 1354
For BG 50-70 mg/dL: Oral treatment preferred: If able to drink, give&nbs p;120 mL Juice or Regular (not diet) sod a OR If NPO, give 15 gram glucose 40% oral gel massaged into buccal mucosa OR if unconscious or uncooperative, give 25 gram (250 mL) Dextrose 10 % IV over 15 minutes per protocol O R, if no IV access, 1 mg Glucagon IM. For BG less than 50 mg/dL: Oral treatment preferred: If able to drink, give 240 mL Juice or Regular (not diet) soda OR If NPO, give 30 gram glucose 40% oral gel massaged in buccal mucosa OR if unconscious or uncooperative, give 25 gram (250 mL) Dextrose 10% IV over 15 minutes per&am p;nbsp;protocol OR, if no IV access, 1 m g Glucagon IM. Recheck BG in 30 minutes. May repeat juice/soda, gel, dextrose or glucagon once per episode. For persiste nt hypoglycemia, consider longer-acting treatment for the duration of the active insulin.
Or glucagon (Glucagen) (1 mg/mL) injection solution 1 mgJump to med 1 mg, Intramuscular, EVERY 30 MIN PRN, S tarting on Wed12/10/20 at 1538, Until Wed12/11/20 at 1354, Low blood sugar
For BG 50-70 mg/dL: Oral treatment preferred: If able to drink, give&nb sp;120 mL Juice or Regular (not diet) so da OR If NPO, give 15 gram glucose 40% oral gel massaged into buccal mucosa OR if unconscious or uncooperative, give 25 gram (250 mL) Dextrose 1 0% IV over 15 minutes per protocol OR, if no IV access, 1 mg Glucagon IM. For BG less than 50 mg/dL: Oral treatment preferred: If able to drink, give 240 mL Juice or Regula r (not diet) soda OR If NPO, give 30 gra m glucose 40% oral gel massaged in buccal mucosa OR if unconscious or uncooperative, give 25 gram (250 mL) Dextrose 10% IV over 15 minutes per&a mp;nbsp;protocol OR, if no IV access, 1 mg Glucagon IM. Recheck BG in 30 minutes. May repeat juice/soda, gel, dextrose or glucagon once per episode. For persist ent hypoglycemia, consider longer-acting treatment for the duration of the active insulin.
Routine documented in this encounter Additional Health Concerns Infection Onset Date Last Indicated Resolved Time Rule Out COVID-19Comment: Order 12/09/2020 12/09/2020 12/09/2020 9:32 AM EDT error documented as of this encounter Care Teams Full Stack Developer Relationship Specialty Start Date End Date Paxton Segura MD PCP - General Family Medicine 12/03/[address] [place] [address] documented as of this encounter
--- OUTSIDE RECORDS SUMMARY | 2021-12-08 08:49 | XMS_ITS | Encounter Summary ---
:1945 Author Organization [facility] [place] [address] Care Team Providers Name Role Phone Paxton Segura MD Primary Care Provider [phone] Reason for Referral Diagnostic Test (Routine) - Closed Specialty Diagnoses / Procedures Referred By Contact Refer red To Contact Radiology Diagnoses Pleural effusion, left Mass of lower lobe of left lung Eamon Gold MD [facility] Rad Nuclear Med Procedures NM Jones PET CT Skull Base to Mid-thigh [facility] [place] [address] [place] [address] Referral ID Status Reason Start Date Expiration Date Visits V isits Requested Authorized [id number] Closed Specialty 12/03/2020 03/03/2021 1 1 Service Requested Reason for Visit Auth/Cert Specialty Diagnoses / Procedures Referred By Contact Refer red To Contact Diagnoses Pleural effusion effusion and masses . Procedures PRO THORACOSCOPY SURG W/PLEURODESIS PRO BRONCHOSCOPY, DIAGNOSTIC @THORACOSCOPY, SURG; W PLEURODESIS (WRVU 10.83) BRONCHOSCOPY, DIAGNOSTIC (WRVU 2.78) Referral ID Status Reason Start Date Expiration Date Visits Requ ested Visits Authorized [id number] 1 1 Encounter Details Date Type Department Care Team Description 12/06/2020 Hospital Encounter Nuclear Medicine at [facility]amon Gold , Pleural effusion, left; Tahira Reyes MD Mass of lower lobe of left lung [facility] [address] [place], [place] SURGERY [address] [place], [place] [phone] [facility] Social History Tobacco Use Types Packs/Day Years [...] daily. 0 10/2021 0.25 % ophthalmic solution CIS Free Text Med - 25mg, [place], PRN 0 04/27/2006 Phenergan lisinopril 2.5MG = 1 Tablet(s), 0 04/27/200611/21 (PRINIVIL;ZESTRIL) 2.5 PO, Once daily mg tablet metFORMIN 0 04/27/2006 12/11/2020 (GLUCOPHAGE-XR) 500 mg 24 hr tablet hyoscyamine (LEVSIN) 0 04/27/200611/21 0.125 mg tablet documented as of this encounter Plan of Treatment Upcoming Encounters Date Type Specialty Care Team Description 12/29/2021 Office Visit Hematology and Oncology Castro Leong MD [facility] [address] HEMATOLOGY/[place] [address] Maylin Monet APRN [facility] [address] [place] [address] 12/29/2021 Infusion Hematology and Oncology documented as of this encounter Procedures Procedure Name Priority Date/Time Associated Diagnosis Comme nts [place] JONES PET CT Routine 12/06/2020 3:24 PM Pleural effusio n, Results for this SKULL BASE TO EDT left procedure are in MID-THIGH Mass of lower lobe the resul ts of left lung section. documented in this encounter Results NM Jones PET CT Skull Base to Mid-thigh (12/06/2020 3:24 PM EDT) Anatomical Region Laterality Modality Positron Emission To mography (PET) Specimen (Source) Anatomical Location Collection Method / Collectio n Time Received Time / Laterality Volume Impressions 12/06/2020 4:32 PM EDT 1. ??A 7 cm FDG avid necrotic appearing mass in the medial left lower lobe abutting the medial pleural margin and p ericardium, consistent with primary lung malignancy. Pericardial invasion is not excluded. 2. 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 3. ??Small left hilar tyree metastasis. 4. ??No extrathoracic sites of metastasi s. Thank you for letting us participate in the care of this patient. ??If you are a health care provider and have any questi ons regarding this report, please contact the number below. ??For patients who have questions please contact the health chronic care nurse that requested your imaging first. ? Electronically signed by: Eleno Dudley MD, [facility] ([phone]), at 12/06/2020 4:32 PM Narrative 12/06/2020 4:32 PM EDT EXAMINATION: [facility] PET CT SKULL BASE TO MID-THIGH CLINICAL HISTORY: Metastatic disease lou luation - Include more detail below Patient with Large LLL Mass 5.7cm with e ffusion, eval for mets, surgery 12-09-2020 TECHNIQUE: Following IV injection of 18- enpath-4-vpzlyacuzvcs (FDG) a standard uptake of approximately 60 minutes, a no ncontrast CT scan followed by a PET scan were acquired from the base of the skull to mid thighs. The noncontrast CT was used for anatomic localization and photo n attenuation correction of the PET scan. Blood glucose level: 90 (mg/dL) FDG dose: 9.2 mCi COMPARISON: CT chest 11/20/[address] [facility] ter FINDINGS: HEAD/NECK: Normal activity in all soft tissue regio ns of the neck and visualized lower head. No significant adenopathy. CHEST: An approximately 7 cm FDG avid necrotic appearing mass in the medial left lower lobe abutting the medial pleural margin and pericardium, with pericardial invasion not excluded. A large area of FDG avid pleural nodular ity in the posterior left lung base (axial images 141 through 163). Additional FDG avid pleural nodularity a long the superior medial margin of the left lower lobe (axial images 84 through 98). Above-mentioned pleural nodularity is al so seen on recent contrast CT of 11/20/2020. Small FDG avid adenopathy in the left hi lum (axial image 111). Moderate-sized mildly FDG avid left pleu ral effusion. Sub-5 mm calcified granuloma in the post erior right upper lobe (axial image 80). Coronary and aortic calcifications prese nt. ABDOMEN/PELVIS: Normal activity in all soft tissue regio ns. No significant adenopathy. SKELETON/EXTREMITIES: Mild diffusely increased marrow activity in the axial and proximal appendicular skeleton with reactive marrow. No focal osseous lesions. Procedure Note Eleno Dudley MD - 12/06/2020Formatti ng of this note might be different from the original. EXAMINATION: [facility] PET CT SKULL B ASE TO MID-THIGH CLINICAL HISTORY: Metastatic disease lou luation - Include more detail below Patient with Large LLL Mass 5.7cm with e ffusion, eval for mets, surgery 12-09-2020 TECHNIQUE: Following IV injection of 18- yiedwg-1-ozmoyzmkugcd (FDG) a standard uptake of approximately 60 minutes, a no ncontrast CT scan followed by a PET scan were acquired from the base of the skull to mid thighs. The noncontrast CT was used for anatomic localization and photo n attenuation correction of the PET scan. Blood glucose level: 90 (mg/dL) FDG dose: 9.2 mCi COMPARISON: CT chest 11/20/[address] [facility] ter FINDINGS: HEAD/NECK: Normal activity in all soft tissue regio ns of the neck and visualized lower head. No significant adenopathy. CHEST: An approximately 7 cm FDG avid necrotic appearing mass in the medial left lower lobe abutting the medial pleural margin and pericardium, with pericardial invasion not excluded. A large area of FDG avid pleural nodular ity in the posterior left lung base (axial images 141 through 163). Additional FDG avid pleural nodularity a long the superior medial margin of the left lower lobe (axial images 84 through 98). Above-mentioned pleural nodularity is al so seen on recent contrast CT of 11/20/2020. Small FDG avid adenopathy in the left hi lum (axial image 111). Moderate-sized mildly FDG avid left pleu ral effusion. Sub-5 mm calcified granuloma in the post erior right upper lobe (axial image 80). Coronary and aortic calcifications prese nt. ABDOMEN/PELVIS: Normal activity in all soft tissue regio ns. No significant adenopathy. SKELETON/EXTREMITIES: Mild diffusely increased marrow activity in the axial and proximal appendicular skeleton with reactive marrow. No focal osseous lesions. IMPRESSION 1. A 7 cm FDG avid necrotic appearing ma ss in the medial left lower lobe abutting the medial pleural margin and p ericardium, consistent with primary lung malignancy. Pericardial invasion is not excluded. 2. 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 3. Small left hilar tyree metastasis. 4. No extrathoracic sites of metastasis. Thank you for letting us participate in the care of this patient. If you are a health care provider and have any questi ons regarding this report, please contact the number below. For patients w ho have questions please contact the health chronic care nurse that requested your imaging first. Eamon Gold MD IMG PET ORDERABLES documented in this encounter Visit Diagnoses Diagnosis Pleural effusion, left Unspecified pleural effusion Mass of lower lobe of left lung documented in this encounter Administered Medications Inactive Administered Medications - up to 3 most recent administrations Medication Order MAR Action Action Date Dose Rate Site fludeoxyglucose (F-18) FDG Given 12/06/2020 2:00 PM 9.2 mCi Right Arm injection 0-20 mCi EDT 0-20 mCi, Intravenous, ONCE PRN, 1 dose, Starting on Wed12/06/20 at 1524, Until Wed12/06/20 at 1400, Per Protocol, Radiology Contrast, Routine documented in this encounter Care Teams Liquefier Relationship Specialty Start Date End Date Paxton Segura MD PCP - General Family Medicine 12/03/[address] [place] [address] documented as of this encounter
--- OUTSIDE RECORDS SUMMARY | 2021-12-08 08:49 | XMS_ITS | Encounter Summary ---
:1945 Author Organization [facility] [place] [address] Care Team Providers Name Role Phone Paxton Segura MD Primary Care Provider Encounter Details Date Type Department Care Team Description 12/04/2020 Telephone [place] [facility] Jaja Mills, [place] [address] Social History Tobacco Use Types Packs/Day [...] this encounter Miscellaneous Notes Telephone Encounter - Jaja Mills RN - 12/04/2020 10:29 AM EDT Phone call from Walt to clarify that his PET scan is at [facility], which it is. We will be contacting him to schedule a brain MRI and he will also be contacted by Oncology at [facility]. He wasthankful for the call. He will call with any concerns. He is tentatively scheduled for the OR on 12/09/2020 awaiting bed approval. documented in this encounter Plan of Treatment Upcoming Encounters Date Type Specialty Care Team Description 12/29/2021 Office Visit Hematology and Oncology Castro Leong MD [facility] DR HEMATOLOGY/[place] [address] Maylin Monet APRN [facility] [place] [address] 12/29/2021 Infusion Hematology and Oncology documented as of this encounter Visit Diagnoses Not on filedocumented in this encounter Care Teams Wheel Blocker Relationship Specialty Start Date End Date Paxton Segura MD PCP - General Family Medicine 12/03/[address] [place] [address] documented as of this encounter
--- OUTSIDE RECORDS SUMMARY | 2021-12-08 08:49 | XMS_ITS | Encounter Summary ---
:1945 Author Organization [facility] [place] [address] Care Team Providers Name Role Phone Luisa Roberts MD Primary Care Provider Reason for Visit Reason Comments Skin Check Encounter Details Date Type Department Care Team Description 08/05/2012 Office Visit Dermatology Missael Madison, Actinic keratosis [address] [facility] (Primary Dx) [address] [place], [place] DERMATOLOGY [id number] [place] [address] [phone] (Wo rk) Social History Tobacco Use Types Packs/Day Years Used Date Never Smoker Sex Assigned at Date Recorded Not on file documented as of this encounter Progress Notes Missael Madison MD - 08/05/2012 9:04 AM EDT Problem is left cheek lesion. 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 He thinks it may have been there earlier but really has been red, flaring, building up a scab, peeling off, and then regrowing for the last nine months, only lightly erythematous prior to that. The patient denies any prior history of cutaneous lesions/skin cancers. 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 Physical examination reveals a pleasant 66-year-old who has a 1.5 cm erythematous patch on the left cheek, which is slightly hyperkeratotic, consistent with an actinic keratosis. The patient is blue eyed, fair skinned. But otherwise facial skin examination and examination of the scalp is benign. Assessment and Plan: Actinic keratosis, left cheek. a. Discussed diagnosis. b. Encouraged wearing a broad-brimmed hat and Neutrogena sunscreen with Helioplex when outside. c. Recommended LN2 therapy, and this was performed today. LN2 times three applied to the site. Post LN2 instructions given. Discussed the possibility of need for future treatments in the future, either at the same site or additional sites. Return to clinic p.r.n. for new lesions/concerns. d. Reassured patient that I see no evidence of any cutaneous malignancy on examination today. COPY: Luisa Roberts M.D. documented in this encounter Plan of Treatment Upcoming Encounters Date Type Specialty Care Team Description 12/29/2021 Office Visit Hematology and Oncology Castro Leong MD [facility] DR HEMATOLOGY/[place] [address] Maylin Monet APRN [facility] DR HEMATOLOGY [place] [address] 12/29/2021 Infusion Hematology and Oncology documented as of this encounter Visit Diagnoses Diagnosis Actinic keratosis - Primary documented in this encounter Care Teams Township Clerk Relationship Specialty Start Date End Date Luisa Roberts MD PCP - General 08/05/12 12/02/20 [address] [place] [address] documented as of this encounter
--- OUTSIDE RECORDS SUMMARY | 2021-12-08 08:49 | XMS_ITS | Encounter Summary ---
:1945 Author Organization [facility] [place] [address] Care Team Providers Name Role Phone Paxton Segura MD Primary Care Provider [phone] Encounter Details Date Type Department Care Team Description 12/19/2020 Hospital Encounter Hematology and Mass of lower lobe of Oncology at [facility] [place] [address] Social History Tobacco Use Types Packs/Day [...] Visit Hematology and Oncology Castro Leong MD [facility] DR HEMATOLOGY/[place] [address] Maylin Monet APRN [facility] [address] HEMATOLOGY [place] [address] 12/29/2021 Infusion Hematology and Oncology documented as of this encounter Procedures Procedure Name Priority Date/Time Associated Comments Diagnosis HEMOGRAM STAT 12/19/2020 10:52 Mass of lower lobe Resul ts for this AM EDT of left lung procedure are i n the results section. DIFFERENTIAL, STAT 12/19/2020 10:52 Mass of lower lobe Resu lts for this AUTOMATED AM EDT of left lung procedure are i n the results section. HC CBC,PLT & AUTO DIFF STAT 12/19/2020 10:52 Mass of lower lobe AM EDT of left lung HC LACTIC STAT 12/19/2020 10:52 Mass of lower lobe Resul ts for this DEHYDROGENASE AM EDT of left lung procedure are in the results section. HC VENIPUNCTURE STAT 12/19/2020 10:52 Mass of lower lobe Re sults for this AM EDT of left lung procedure are i n the results section. documented in this encounter Results (ABNORMAL) Differential, Automated (12/19/2020 10:52 AM EDT) [facility] Method Time Signature Neutrophils % 76.8 % [facility] Neutr Abs (ANC) 10.51 (H) 1.70 - [facility] 6.10 [facility] x10(3)/[facility] LABORATORY Lymphocytes % 10.5 % [facility] Lymphocytes Abs 1.4 0.9 - 3.2 [facility] x10(3)/[facility] LABORATORY Monocytes % 7.4 % [facility] Monocyte Abs 1.0 (H) 0.3 - 0.9 [facility] x10(3)/[facility] LABORATORY Eosinophils % 2.8 % [facility] Eosinophils Abs 0.4 0.0 - 0.4 [facility] x10(3)/[facility] LABORATORY Basophils % 0.9 % [facility] Basophils Abs 0.1 0.0 - 0.1 [facility] x10(3)/[facility] LABORATORY Immature Gran % 1.60 % [facility] Comment: Immature granulocytes(IG's)percentage an d absolute count will include metamyelocytes, myelocytes, and promyelo cytes. Blood smears from CBCs yielding IG's will be scanned manually for concor dance. If this scan disagrees with the automated IG or if promyelocytes are not ed, a manual differential will be performed. [place]ashaun Gran Abs 0.22 (H) 0.00 - 0.04 x10(3)/[facility] LABORATORY Specimen Anatomical Collection Method Collection Time Receive d Time (Source) Location / / Volume Laterality Blood 12/19/2020 10:52 12/19/2020 AM EDT 11:17 AM EDT Resulting Agency Comment Spec In Lab Roxi Romero [employer] DIRECT[employer] HEMATOLOGY ORDERABLES Performing Organization Address City/State/[place] [address] (ABNORMAL) Hemogram (12/19/2020 10:52 AM EDT) Analysis Performed At Patho logist Time Signature WBC 13.7 (H) 4.0 - 9.5 [facility] x10(3)/[facility] LABORATORY RBC 4.84 4.58 - [place] 5.54 [facility] x10(6)/[facility] LABORATORY Hemoglobin 14.2 13.7 - [facility] 16.5 g/dL [facility] Hematocrit 43.2 40.5 - [facility] 48.5 % [facility] MCV 89.3 82.9 - [facility] 93.1 [facility] LABORATORY MCH 29.3 27.5 - [place] 32.[address] [facility] MCHC 32.9 32.0 - [place] 35.7 g/dL [facility] Platelets 291 145 - 357 [facility] x10(3)/[facility] LABORATORY RDWSD 45.7 (H) 36.0 - [facility] 45.0 [facility] LABORATORY RDWCV 14.0 (H) 11.4 - [facility] WILY 13.8 % [facility] MPV 10.0 7.6 - 12.9 [facility] nRBC % Auto 0.0 % [facility] nRBC Abs Auto 0.000 0.000 - [facility] WILY 0.000 [facility] x10(3)/[facility] LABORATORY Specimen Anatomical Collection Method Collection Time Receive d Time (Source) Location / / Volume Laterality Blood 12/19/2020 10:52 12/19/2020 AM EDT 11:17 AM EDT Resulting Agency Comment Spec In Lab Roxi Romero [employer] DIRECTOR HEMATOLOGY ORDERABLES Performing Organization Address City/State/[place] [address] Lactate Dehydrogenase (12/19/2020 10:52 AM EDT) P athologist Signature LDH 206 110 - 220 [facility] unit/L [facility] Specimen Anatomical Collection Method Collection Time Receive d Time (Source) Location / / Volume Laterality Blood 12/19/2020 10:52 12/19/2020 AM EDT 11:17 AM EDT Resulting Agency Comment Spec In Lab Roxi Romero [employer] DIRECTOR CHEMISTRY ORDERABLES Performing Organization Address City/State/[place] [address] (ABNORMAL) Comprehensive metabolic panel (non-fasting) (12/19/2020 10:52 AM EDT) athologist Signature Glucose Lvl 167 65 - 199 [facility] mg/dL [facility] Comment: Diabetes: >=200 mg/dL plus symp toms BUN 22 (H) 10 - 20 mg/dL [facility] Creatinine 0.88 0.80 - 1.50 mg/dL [facility] Sodium 139 135 - 145 mmol/L [facility] Potassium 4.6 3.5 - 5.0 mmol/L [facility] Comment: Please note: ??Patients with WBC >100,00 0 may have falsely elevated Potassium levels. ??For accurate Potassium quantif ication in these patients send serum separator tube (gold top) for subsequent determinations. ??Contact the Clinical Chemistry Laboratory if there are any qu estions. Chloride 100 98 - 107 mmol/L [facility] CO2 30 22 - 31 mmol/L [facility] Anion Gap 9 5 - 15 mmol/L [facility] Calcium 9.8 8.5 - 10.5 mg/dL [facility] Total Protein 7.1 6.1 - 8.0 g/dL [facility] Albumin 3.8 3.2 - 5.2 g/dL [facility] AST 12 0 - 39 unit/L [facility] ALT 11 0 - 55 unit/L [facility] Alk Phos 81 40 - 130 unit/L [facility] Total Bilirubin 0.4 0.2 - 1.3 mg/dL [facility] Estimated GFR 85 >=60 mL/min/1.73 m?? [facility] Comment: This patient? s estimated glomerular filtration rate (eGFR) is between 85 mL/min/1.73 m2 (patients with less muscl e mass per kg body weight) and 98 mL/min/1.73 m2 (patients with more muscl e mass per kg body weight) as determined by the CKD-EPI equation. Asse ssment of eGFR is not appropriate when creatinine concentrations are rapidly ch anging. For clinical decisions where creatinine clearance will affect therapy , a 24-hour urine creatinine clearance may be advised. Assignment of CKD stage 1 - 5 for patien ts with an eGFR near the transition point between stages may be based on cli nical assessment of muscle mass and symptoms in addition to eGFR. Specimen Anatomical Collection Method Collection Time Receive d Time (Source) Location / / Volume Laterality Blood 12/19/2020 10:52 12/19/2020 AM EDT 11:17 AM EDT Resulting Agency Comment Spec In Lab Roxi Romero [employer] DIRECTOR CHEMISTRY ORDERABLES Performing Organization Address City/State/[place] [address] documented in this encounter Visit Diagnoses Diagnosis Mass of lower lobe of left lung documented in this encounter Care Teams Manager Client Support Relationship Specialty Start Date End Date Paxton Segura MD PCP - General Family Medicine 12/03/[address] [place] [address] documented as of this encounter
--- OUTSIDE RECORDS SUMMARY | 2021-12-08 08:49 | XMS_ITS | Encounter Summary ---
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; [place]cology at [facility] [place] [address] Social History Tobacco Use Types Packs/Day [...] Visit Hematology and Oncology Castro Leong MD [facility] DR HEMATOLOGY/[place] [address] Maylin Monet APRN [facility] [place] [address] 12/29/2021 Infusion Hematology and Oncology documented as of this encounter Procedures Procedure Name Priority Date/Time Associated Diagnosis Comme nts HC VENIPUNCTURE Routine 12/19/2020 1:43 PM Primary malignant R esults for this EDT neoplasm of left procedure a re in lower lobe of christal ng the results Malignant pleural section. effusion documented in this encounter Results Research Venipuncture (12/19/2020 1:43 PM EDT) Analysis Performed At [facility] Time Signature Research Drawn [facility] Venipuncture [facility] Specimen Anatomical Collection Method Collection Time Receive d Time (Source) Location / / Volume Laterality Blood 12/19/2020 1:43 PM 1:47 EDT PM EDT Resulting Agency Comment Spec In Lab Rizwan Leong MD CHEMISTRY ORDERABLES Performing Organization Address City/State/Z[place] [address] documented in this encounter Visit Diagnoses Diagnosis 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
--- OUTSIDE RECORDS SUMMARY | 2021-12-08 08:49 | XMS_ITS | Encounter Summary ---
:1945 Author Organization [facility] [place] [address] Care Team Providers Name Role Phone Paxton Segura MD Primary Care Provider [phone] Reason for Visit Auth/Cert Specialty Diagnoses / Procedures Referred By Contact Refer red To Contact Diagnoses Pleural effusion effusion and masses . Procedures PRO THORACOSCOPY SURG W/PLEURODESIS PRO BRONCHOSCOPY, DIAGNOSTIC @THORACOSCOPY, SURG; W PLEURODESIS (WRVU 10.83) BRONCHOSCOPY, DIAGNOSTIC (WRVU 2.78) Referral ID Status Reason Start Date Expiration Date Visits Requ ested Visits Authorized [id number] 1 1 Encounter Details Date Type Department Care Team Description 12/09/2020 Anesthesia Event Main Operating Room Avel Green MD [facility] [place] [address] [facility] Quan Pickering MD [facility] [place] [address] [place] [address] Anesthesia Record Procedure Summary Procedure Name Responsible Anesthesia Start Anesthesia Stop Anesthesiologist Time Time @THORACOSCOPY, SURG; Avel Willoughby MD 12/09/20 0737 0934 W PLEURODESIS (WRVU 10.83) (Left Chest) Events Date Time Event Comment 12/09/2020 0710 0737 AN Verify 0737 Start 0737 An Start Data 0744 An Induction 0748 An Intubation 0759 An one lung vent 0800 Anesthesia Ready 0816 Procedure Start 0827 Break/Relief In I assumed care f or Break Relief before which we: 1. Identifie d the patient 2. Identified the responsible provider(s) 3. Reviewed the pertinent medica l history 4. Discussed the surgical plan an d course 5. Reviewed intra-op anesthesia manag ement and issues during anesthesia 6. Se t expectations for the relief (and/or post-pro cedure) period 7. Allowed opportunity for questions and acknowledgement of understanding Quan Pickering MD 0848 Break/Relief Out 09 Extubation/LMA Out 0923 an stop data 0932 Recovery or ICU Handoff Patient care was transferred to the destination unit staff after review of the patient's medica l history, current anesthetic/surgi layton status and plan, according to the Provider Handoff Checklist. 0934 Stop Name Total fentaNYL 100 mcg IV Lidocaine 60 mg Propofol 180 mg Rocuronium 60 mg PHENYLephrine 400 mcg ePHEDrine 10 mg Ondansetron 8 mg Dexamethasone 8 mg Neostigmine 5 mg Glycopyrrolate 0.8 mg ceFAZolin (Ancef) 2 g in dextrose 5% 100 mL (2 x 1 g/5 0 mL premix bags) 2 g infusion lactated ringers infusion 800 mL Agents Name O2 Air N2O Sevoflurane (et) Blood No blood administrations on file. Lines, Drains, and Airways Type Details Placement Removal Incision 12/09/20; 08; Left, 12/09/20 0819 by Win, lateral; chest; Julia Monteiro RN laparoscopic punctures (specify) PIV 12/09/20; 06; metacarpal 12/09/20 0629 by 11/21 05/12 0958 by vein (top of hand), right; Elizabeth Murillo R N Bassette, Elizabeth A, 20 gauge; TAMMY anne intradermal injection, tolerated well; 12/11/20; 0958 ETT Mask Ventilation: Easy (1); 12/09/20 0748 by 0922 by ETT Type: Cuffed, Oral; Quan Pickering MD Bingh am, Max W, MD Double Lumen: 39 Fr; Indirect:Video (D-blade); Notes: Asleep, Pre-O2, Stylette, Cricoid Pressure; Attempts: 1; Laryngoscopy Grade: 1; ETT Placement Verified By: Auscultation, Capnometry, Visual; Secured at Teeth: 34 cm; Inserted by: MD Raheel Chest Tube 12/09/20; 0857; Left; 12/09/20 0857 by Win, 0 12/11/20 0959 by lateral; other (see TAMMY Malin El izabeth A, comments) (Chest); 20 Fr. RN straight chest tube; 12/11/20; 0959 documented in this encounter Social History Tobacco Use Types Packs/Day Years [...] on file documented as of this encounter OR Notes Anesthesia Postprocedure Evaluation - Quan Pickering MD - 12/09/2020 9:35 AM EDT Department of Anesthesiology Post-procedure Note Patient: Chandana Mcwilliams Procedure Summary Date: 12/09/20 Room / Location: [facility] OR [address] [place] [address] MAIN OR Anesthesia Start: 736 Anesthesia Stop: 933 Procedures: @THORACOSCOPY, SURG; W PLEURODESIS (WRVU 10.83) (Left Chest) BRONCHOSCOPY, DIAGNOSTIC (WRVU 2.78) (N/A ) NERVE BLOCK, INTERCOSTAL NERVE, MULTIPLE (WRVU 1.68) (Left Chest Wall) Diagnosis: Pleural effusion, left Mass of lower lobe of left lung (effusion and masses) Surgeons: Eamon Gold MD Responsible Provider: Avel Willoughby MD Anesthesia Type: general ASA Status: 3 All Anesthesia Providers: Anesthesiologist: Avel Willoughby MD Boilermaker Helper: Quan Pickering MD Vitals Value Taken Time BP 118/68 12/09/20 0930 Temp 36.6 ??C (97.9 ??F) 12/09/20 0928 Pulse 68 12/09/20 0934 Resp 13 12/09/20 0934 SpO2 100 % 12/09/20 0934 Pain Level Vitals shown include unvalidated device data. Patient Location: PACU/[facility] Level of Consciousness: Awake and Alert Pain Management: Satisfactory Analgesia PONV: None Cardiovascular Status: At Baseline and Hemodynamically Stable Respiratory Status: Stable Respiratory Status and Supplemental O2 (NC or FM) Postoperative Fluid Status: Intravascular EUvolemia Possible Anesthetic Complications: NONE apparent at time of evaluation Final Primary Anesthesia Type: General (The anesthetic type performed was the same as planned.) Comments: Quan Pickering MD Anesthesia Preprocedure Evaluation - Avel Willoughby MD - 12/08/2020 7:48 PM EDT Pre-Anesthesia Evaluation for: Chandana Mcwilliams a 75 y.o. male. Procedure(s): @THORACOSCOPY, SURG; W PLEURODESIS (WRVU 10.83) BRONCHOSCOPY, DIAGNOSTIC (WRVU 2.78) Patient Active Problem List Diagnosis ??? Pleural effusion ??? Mass of lower lobe of left [...] sinusitis ??? Actinic keratosis ??? Diabetes mellitus Past Medical History: Diagnosis Date ??? Anxiety ??? CAD (coronary artery disease) ??? Glaucoma ??? Hypertension ??? Irritable bowel syndrome ??? Type 2 diabetes mellitus 1999 Past Surgical History: Procedure Laterality Date ??? ABDOMEN SURGERY 1995 Right Inguinal Hernia, no complications ??? HERNIA REPAIR Social History Tobacco Use ??? Smoking status: Never Smoker ??? Smokeless tobacco: Never Used Substance Use Topics ??? Alcohol use: Yes Alcohol/week: 7.0 standard drinks Types: 7 Glasses of wine per week Comment: 1 glass of wine per day Social History Substance and Sexual Activity Drug Use Yes ??? Types: Marijuana Comment: 1-2 times per month through smoking Allergies Allergen Reactions ??? Venom-Honey Bee Medications: MAR and/or home medications have been reviewed. Physical Exam: Preprocedure Vitals Current as of 12/08/201947 No BP, pulse, respiration, SpO2, or temperature recorded. Height: 172.2 cm (5' 7.8) (12/03/20) Weight: 58 kg (127 lb 12.8 oz) (12/03/20) BMI: 19.55 IBW: 67.9 kg (149 lb 12.1 oz) Airway Assessment: Mallampati: II TM distance: >3 FB Neck ROM: full Cardiovascular Assessment: Rhythm: regular Rate: normal system normal Pulmonary Assessment: unlabored breathing pulmonary exam normal Dental Assessment: - normal exam Misc Assessment: Patient is wearing No contact(s). IV access: Peripheral line Other exam findings: Last Filed Perioperative Cognitive Screening None Anesthesia Plan: ASA 3 general, with a(n) intravenous induction 75 y.o. male with HTN, HLD, T2DM, remote Hx of CAD, Chronic sinusitis and recently discovered LLL mass with pleural nodules scheduled for thoracoscopy. Medical History: See above Surgical History: Thoracentesis about 1 month ago Anesthetic History: No prior records on file Allergies reviewed Labs reviewed Exercise tolerance: Greater than 4 METS Cardiac Catheterization: No record on file. Will assess cardiovascular health on day of surgery NPO Status: Appropriate Anesthetic Plan: GA w/ ETT - double lumen Standard ASA monitoring Adequate PIV access, +/- Arterial line Quan Pickering MD 12/08/2020 Region - Intrathoracic Non-Cardiac Informed Consent: Anesthetic plan and risks discussed with patient. Use of blood products discussed with patient who consented to blood products. Plan discussed with attending and resident. Anesthesia Screening documented in this encounter Plan of Treatment Upcoming Encounters Date Type Specialty Care Team Description 12/29/2021 Office Visit Hematology and Oncology Castro Leong MD [facility] DR HEMATOLOGY/[place] [address] Maylin Monet APRN [facility] [place] [address] 12/29/2021 Infusion Hematology and Oncology documented as of this encounter Visit Diagnoses Not on filedocumented in this encounter Administered Medications Inactive Administered Medications - up to 3 most recent administrations Medication Order MAR Action Action Date Dose Rate Site ceFAZolin (Ancef) 2 g in dextrose 5% Given 12/09/2020 7:59 AM ED T 2 g 100 mL (2 x 1 g/50 mL premix bags) infusion 2 g, Intravenous, IRRIGATOR VALVE PIPE TO O.R., 1 dose, On Wed12/09/20 at 0715, Administer over 30 Minutes, Total dose of ceFAZolin 2 grams, administered using two ceFAZolin 1g/50mL IV bags. Infuse each ceFAZolin 1g/50mL bag over 30 minutes (100 ml/hr) for total infusion time of 60 minutes. On the MAR, document administration of first bag using New Bag (1 of 2) MAR action for dose of 1g. On the MAR, document administration of second bag using Next Bag (2 of 2) MAR action for dose of 1g (resulting in total dose of 2g)., Indication for (Active or Suspected): Prophylaxis dexamethasone (Decadron) injection Given 12/09/2020 7:44 AM EDT 8 mg Intravenous, PRN, Starting on Wed12/09/20 at 0744, Until Wed12/09/20 at 0934, Anesthesia Intra-op, Routine ePHEDrine sulfate (5 mg/mL) multi-dose Given 12/09/2020 8:53 AM EDT 5 mg injection Intravenous, PRN, Starting on Wed12/09/20 at 0823, Until Wed12/09/20 at 0934, Anesthesia Intra-op, Routine Given 12/09/2020 8:23 AM EDT 5 mg fentaNYL (pf) (50 mcg/mL) multi-dose Given 12/09/2020 9:06 AM ED T 25 mcg injection Intravenous, PRN, Starting on Wed12/09/20 at 0744, Until Wed12/09/20 at 0934, Anesthesia Intra-op, Routine Given 12/09/2020 9:03 AM EDT 25 mcg Given 12/09/2020 7:44 AM EDT 50 mcg glycopyrrolate (Robinul) (0.2 mg/mL) Given 12/09/2020 8:59 AM ED T 0.8 mg multi-dose injection Intravenous, PRN, Starting on Wed12/09/20 at 0859, Until Wed12/09/20 at 0934, Anesthesia Intra-op, Routine lactated ringers infusion New Bag 12/09/2020 10:03 AM EDT 1,000 mLs 100 mL/hr 1,000 mL, at 100 mL/hr, Intravenous, CONTINUOUS, Starting on Wed12/09/20 at 0630, Until Wed12/09/20 at 1150, Day of Surgery (Day of Procedure) New Bag 12/09/2020 9:33 AM EDT New Bag 12/09/2020 6:30 AM EDT 1,000 mLs 100 mL/hr lidocaine (pf) (Xylocaine) (20 mg/mL) 2% Given 12/09/2020 7:44 A M EDT 60 mg injection syringe Intravenous, PRN, Starting on Wed12/09/20 at 0744, Until Wed12/09/20 at 0934, Anesthesia Intra-op, Routine neostigmine (Bloxiver) (1 mg/mL) injecti on Given 12/09/2020 8:59 AM EDT 5 mg Intravenous, PRN, Starting on Wed12/09/20 at 0859, Until Wed12/09/20 at 0934, Anesthesia Intra-op, Routine ondansetron (pf) (Zofran) (2 mg/mL) inje ction Given 12/09/2020 8:59 AM EDT 8 mg Intravenous, PRN, Starting on Wed12/09/20 at 0859, Until Wed12/09/20 at 0934, Anesthesia Intra-op, Routine PHENYLephrine in NS (PF) (CHRISTY-SYNEPHRINE) 0.8 Given 8:53 AM EDT 80 mcg mg/10 mL (80 mcg/mL) multi-dose injection Syrg Intravenous, PRN, Starting on Wed12/09/20 at 0811, Until Wed12/09/20 at 0934, Anesthesia Intra-op, Routine Given 12/09/2020 8:24 AM EDT 80 mcg Given 12/09/2020 8:22 AM EDT 80 mcg propofoL (Diprivan) 10 mg/mL bolus injection Given 9:03 AM EDT 30 mg (Anesthesia) Intravenous, PRN, Starting on Wed12/09/20 at 0744, Until Wed12/09/20 at 0934, Anesthesia Intra-op Given 12/09/2020 8:03 AM EDT 30 mg Given 12/09/2020 7:44 AM EDT 120 mg rocuronium (Zemuron) (10 mg/mL) multi-dose Given 12/09/2020 8:03 AM EDT 30 mg injection Intravenous, PRN, Starting on Wed12/09/20 at 0744, Until Wed12/09/20 at 0934, Anesthesia Intra-op, Routine Given 12/09/2020 7:44 AM EDT 30 mg documented in this encounter Additional Health Concerns Infection Onset Date Last Indicated Resolved Time Rule Out COVID-19Comment: Order 12/09/2020 12/09/2020 12/09/2020 9:32 AM EDT error documented as of this encounter Care Teams Web Content Executive Relationship Specialty Start Date End Date Paxton Segura MD PCP - General Family Medicine 12/03/[address] [place] [address] documented as of this encounter
--- OUTSIDE RECORDS SUMMARY | 2021-12-08 08:49 | XMS_ITS | Encounter Summary ---
:1945 Author Organization [facility] Address [address] [place] [address] Care Team Providers Name Role Phone Paxton Segura MD Primary Care Provider [phone] Encounter Details Date Type Department Care Team Description 12/11/2020 Orders Only Hematology and Storms, Roxi C, Mass of lower lobe of Oncology at [facility] [address] LIGHT SERVICER left [place] [address] [place] [address] HEMATOLOGY-ONCOLOG [phone] Y DEPT. [place], [place] [address] Social History Tobacco Use Types [...] Castro Leong MD [facility] HEMATOLOGY/[place] [address] Maylin Monet APRN [facility] H[place]ATOLOGY [place] [address] 12/29/2021 Infusion Hematology and Oncology documented as of this encounter Results (ABNORMAL) Comprehensive metabolic panel (non-fasting) (12/19/2020 10:52 AM EDT) P athologist Signature Glucose Lvl 167 65 - 199 [facility] mg/dL [facility] Comment: Diabetes: >=200 mg/dL plus symp toms BUN 22 (H) 10 - 20 mg/dL [facility] Creatinine 0.88 0.80 - 1.50 mg/dL [facility] Sodium 139 135 - 145 mmol/L [facility] Potassium 4.6 3.5 - 5.0 mmol/L [facility] Comment: Please note: ??Patients with WBC >100,00 0 may have falsely elevated Potassium levels. ??For accurate Potassium quantif ication in these patients send serum separator tube (gold top) for subsequent determinations. ??Contact the Clinical Chemistry Laboratory if there are any qu estions. Chloride 100 98 - 107 mmol/L [facility] CO2 30 22 - 31 mmol/L [facility] Anion Gap 9 5 - 15 mmol/L [facility] Calcium 9.8 8.5 - 10.5 mg/dL [facility] Total Protein 7.1 6.1 - 8.0 g/dL [facility] Albumin 3.8 3.2 - 5.2 g/dL [facility] AST 12 0 - 39 unit/L [facility] ALT 11 0 - 55 unit/L [facility] Alk Phos 81 40 - 130 unit/L [facility] Total Bilirubin 0.4 0.2 - 1.3 mg/dL [facility] Estimated GFR 85 >=60 mL/min/1.73 m?? [facility] Comment: This patient? s estimated [...] Agency Comment Spec In Lab [address]oxi [address] L[employer] SERVICER CHEMISTRY ORDERABLES Performing Organization Address City/State/[place] [address] Lactate Dehydrogenase (12/19/2020 10:52 AM EDT) P athologist Signature LDH 206 110 - 220 [facility] unit/L [facility] Specimen Anatomical Collection Method Collection Time Receive d Time (Source) Location / / Volume Laterality Blood 12/19/2020 10:52 12/19/2020 AM EDT 11:17 AM EDT Resulting Agency Comment Spec In Lab Roxi [address] LIGHT SERVICER CHEMISTRY ORDERABLES Performing Organization Address City/[facility]/[place] [address] documented in this encounter Visit Diagnoses Diagnosis Mass of lower lobe of left lung documented in this encounter Care Teams Baggage Agent Supervisor Relationship Specialty Start Date End Date Paxton Segura MD PCP - General Family Medicine 12/03/[address] [place] [address] documented as of this encounter
--- OUTSIDE RECORDS SUMMARY | 2021-12-08 08:49 | XMS_ITS | Encounter Summary ---
:1945 Author Organization [facility] [place] [address] Care Team Providers Name Role Phone Paxton Segura MD Primary Care Provider [phone] Reason for Referral Consultation (Routine) - Closed Specialty Diagnoses / Procedures Referred By Contact Refer red To Contact Hematology and Oncology Diagnoses Pleural effusion, left Mass of lower lobe of left lung Yesy Blum MD [facility] Hem Onc Office [address] THORACIC SURGERY [address] [place] [address] Referral ID Status Reason Start Date Expiration Date Visits V isits Requested Authorized [id number] Closed Consult, 12/03/2020 12/03/2021 1 1 Test & Treat iagnostic Test (Routine) - Closed Specialty Diagnoses / Procedures Referred By Contact Refer red To Contact Radiology Diagnoses Pleural effusion, left Mass of lower lobe of left lung Yesy Blum MD [facility] Rad Mri Procedures MRI Brain wwo Contrast (Generic) [facility] [place] [address] [place] [address] Referral ID Status Reason Start Date Expiration Date Visits V isits Requested Authorized [id number] Closed Specialty 12/13/2020 03/13/2021 1 1 Service Requested iagnostic Test (Routine) - Closed Specialty Diagnoses / Procedures Referred By Contact Refer red To Contact Radiology Diagnoses Pleural effusion, left Mass of lower lobe of left lung Yesy Blum MD [facility] Rad Nuclear Med Procedures NM Jones PET CT Skull Base to Mid-thigh [facility] [place] [address] [place] [address] Referral ID Status Reason Start Date Expiration Date Visits V isits Requested Authorized [id number] Closed Specialty 12/03/2020 03/03/2021 1 1 Service Requested Reason for Visit Reason Comments Effusion Mass Encounter Details Date Type Department Care Team Description 12/03/2020 Office Visit Thoracic Surgery at Yesy Blum Pleu ral effusion, left; [facility] Mass of lower lobe of left lung [facility] [address] [place] THORACIC SURGERY [address] [place] [address] [phone] Social History Tobacco Use Types Packs/Day Years [...] Sign Reading Time Taken Comments Blood Pressure 109/70 12/03/2020 12:35 PM EDT Pulse 74 12/03/2020 12:35 PM EDT Temperature 36.9 ??C (98.4 ??F) 12/03/2020 12:35 PM EDT Respiratory Rate 16 12/03/2020 12:35 PM EDT Oxygen Saturation 98% 12/03/2020 12:35 PM EDT Inhaled Oxygen Concentration - - Weight 58 kg (127 lb 12.8 oz) 12/03/2020 12:35 PM EDT Height 172.2 cm (5' 7.8) 12/03/2020 12:35 PM EDT Body Mass Index 19.55 12/03/2020 12:35 PM EDT documented in this encounter Patient Instructions Patient InstructionsJaja Mills RN - 12/03/2020 12:30 PM EDT Thank you for visiting Dr. Blum in clinic 12/03/20 You will nee to have a PET scan and an MRI of your brain. We have also referred you to Oncology at [facility]. You will check in for you PET scan at [facility] area [address]Z. Please refrain from eating or drinking anything except water for 6 hours before. You may take your oral diabetic medications, but PLEASE do not take your long acting insulin injection for 6 hours prior to your PET scan. Please do not eat any GUMor MINTS or use toothpaste either. Please do not perform any heavy exercise such as jogging, skiing,tennis, etc. for at least 12 hours prior If you do eat or drink anything, your test will be canceledand rescheduled for a later date. Dr. Blum would like to schedule you for your Robot assisted Video Assisted Thoracoscopic Surgery (RVATS), Possible Pleurodesis, Possible Pleural Biopsy, Possible PleurX Catheter. Your procedure is tentatively scheduled for 12-09-2020. You will receive a phone call from the OR nurses on 12-06-2020 after 2pm through 6 pm. They will confirm your arrival time, review what medicationsto take and when to stop eating and drinking. Your procedure will occur in bookkeeper receptionist area 4W. In RVATS or robot-assisted video-assisted thoracic surgery, the surgeon controls the camera, light source and surgical tools from a console, with the same degree of flexibility and dexterity as if theywere held in the surgeon's hand. The tiny size of the instruments and the precision movement of the robotic arms allow the surgeon to operate in small and [id number] places in the chest cavity, and to move carefully around sensitive blood vessels, tissues and organs, enabling more difficult procedures to be performed with RVATS versus open surgery. Pleurodesis is a procedure that is designed to get the two layers of the lung lining (the pleura - (a thin layer of tissue that covers the lungs and lines the interior wall of the chest cavity) to stick together. This works to obliterate the space between the layers (the pleural cavity) so that fluid (water, blood, or pus) can no longer build up between the layers. Talc pleurodesis is a specific formof chemical pleurodesis. A pleural biopsy is a procedure to remove a sample of tissue from the pleura and then sent to the laboratory for testing. The pleura, is a 2 layer lining that surrounds the lungs. The PleurX catheter system is designed to allow drainage of fluid that has accumulated in the chest.A tunneled catheter is placed under the skin of the chest and secured in place with a suture. A PleurX catheter is beneficial for patients who suffer from frequent pleural effusions. This system allowspatients to drain fluid from the comfort of their own home and reduces the need for frequent trips to the hospital or doctors office. You will be taught how to use the drainage kits that kit the PleurX catheter. You may have Visiting Nurses come to your house as well to assist you with emptying your PleurX catheter. If you have any questions or concerns regarding your PleurX catheter, please call Thoracic Surgery at [phone]. Before your Surgery: PLEASE WASH WITH EITHER DIAL SOAP or the HIBICLENS SOAP included in this package. Please wash your chest, sides and back. You may shower either the night before or the morning of surgery and please place clean clothes on after your shower. ?? Exercise: Daily aerobic exercise for at least 30 minutes will help improve your endurance and improve the breathing capacity of your lungs. This means that you are breathing hard, your heart is beating fast and that you are sweating. Examples of this include walking, biking, swimming, and using a treadmill or stationary bike. You will be expected to exercise after surgery as well. Incentive Spirometer: Place the Incentive spirometer in your mouth when you are ready to take a slow deep breath in through your mouth (sucking motion, DO NOT BLOW into the device). Use your incentive spirometer as you were shown in clinic: 6 times daily/10 breaths each time. It alberto sucking motion when you take a slow deep breath in, DO NOT BLOW INTO THIS MACHINE You may also bundle the use of the incentive spirometer as well - 30 breaths in the morning and 30 breaths at night. Please keep your incentive spirometer near your favorite chair so that in between commercials you can remember to use it! Take a slow, deep breath in through your mouth. While the piston rises, the indicator on the right should move upwards. It should stay between the 2 arrows for 2 to 4 seconds with each breath. If the indicator does not stay between the arrows, you are breathing either too fast or too slowly. The incentive spirometer will help you expand your lungs and encourage you to breathe deeply and fully. You will use the incentive spirometer as part of your recovery process and to prevent complications such as pneumonia. Some things to expect during your surgery and while you are in the hospital: You will have a chest tube placed while you are in surgery. A Chest tube is a flexible tube that is used to drain blood, fluid and air from around your lungs after surgery. The tube enters your body between your ribs and goes into the space where the piece of lung was removed. The chest tube will comeout a day after surgery, if there is no air leak in your lung. If there is an air leak, the chest tube will stay in until it stops. The nurse and doctor will be watching for the air leak to clear up regularly throughout the day. POST SURGERY AT HOME INSTRUCTIONS: Example of what you will be taking for pain control after your surgery. Please make sure that you have Tylenol (acetaminophen) and Motrin (ibuprofen) at home before you are discharged : acetaminophen 1000 mg alternate with ibuprofen 200 mg (2-3 tabs) every 3 hours : ex. Schedule - Tylenol 1000 mg at 8am, Ibuprofen 200 mg (2-3 tabs) at 11 am, then tylenol 1000 mg at 2 pm, then ibuprofen 200 mg (2-3 tabs) at 5 pm. Do not exceed more than 4000 mg of tylenol in 24 hour period. POST SURGERY AT HOME INSTRUCTIONS: Bowel regimen while at home. Please obtain senna (Senokot) tablets, colace tablets, and Miralax powder. You will need to take senna once a day, colace three times a day and miralax once a day to keep your bowels moving. If you do not have a bowel movement in 2 days you will need to call the office as you will need to obtain either Milk of Magnesia (MOM), Magnesium citrate, a Fleet's enema or glycerinsuppositories. If you are having diarrhea, then you may back off on the bowel medications. If you are taking narcotics, you need to continue the bowel medications while you are taking the narcotics. Dr. Blum's team will see you twice per day while you are in the hospital. Two weeks after you leave the hospital, you will be scheduled to see Dr. Blum in his clinic and will also have a chest x-ray before you see him on this day. Please call the Thoracic Surgery nurse if you have any questions before or after your surgery at . documented in this encounter H&P Notes Yesy Blum MD - 12/03/2020 12:30 PM EDT Images from the original note were not included. Thoracic Surgery Attending Outpatient Consultation Note MD Adama Taylor PA-C [place] [address] FAX: Date of Consultation: 12/03/2020 This consultation has been requested by PCP: Paxton Segura MD Referring Physician: Sulma Root MD Purpose for Consultation: Left lung mass with recurrent effusion HPI: Chandana Mcwilliams 75 y.o. male never smoker who presented with a left pleural effusion (negative cytology) with a new LLL mass with pleural nodularities presents to our clinic for an evaluation and consideration for diagnostic and therapeutic options. Mr. Mcwilliams has a significant PMHx of IDDM2, HTN, HLD, and chronic sinusitis however he reports being a never smoker. He states that prior to thoracentesis, his effusions caused him symptoms of cough, shortness of breath, dyspnea on exertion, and pleuritic chest pain. He reports that his first effusion was noted over the summer of 2020 with noticeable back pain, a subsequent CXR showed a left effusion. Mr. Mcwilliams states [facility] had a recurrence on a follow up CXR which was again drained via thoracentesis. A CT chest was performed on 11/20 which showed a moderate sized effusion on the left which has not been drained. He states that he has some nights where he has sharp pain in the middle of the night but is able to go back to sleep with adjustment. He also states that he has had some cognitive decline and reports that his memory has recently deteriorated. 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 He reports fatigue, weight loss of 7-8 lbs over the last 2 months without effort but he denies loss of appetite. He reports having a right inguinal hernia repair but denies any prior chest surgeries. He does report having right rib injury which resolved with supportive management. The patient denies hemoptysis, wheeze, chest pain, fever, chills, nausea, vomiting, dysphagia. Past Medical History: Patient Active Problem List Diagnosis Date Noted ??? Mass of lower lobe of left [...] Actinic keratosis 08/05/2012 ??? Diabetes mellitus 06/13/2012 Past Medical History: Diagnosis Date ??? Anxiety ??? CAD (coronary artery disease) ??? Glaucoma ??? Hypertension ??? Irritable bowel syndrome ??? Type 2 diabetes mellitus 1999 Past Surgical History: Past Surgical History: Procedure Laterality Date ??? ABDOMEN SURGERY 1994 Right Inguinal Hernia, no complications ??? HERNIA REPAIR Medications: Outpatient Medications Marked as Taking for the 12/03/20 encounter (Office Visit) with Yesy Blum MD Medication Sig Dispense Refill ??? INSULIN LISPRO-AABC SUBQ Inject 1-5 Units subcutaneously. ??? Jardiance 25 mg Tablet TAKE 1/2 TABLET BY MOUTH DAILY FOR THE FIRST 4 DAYS THEN 1 TABLET DAILY ??? Lantus Solostar U-100 Insulin pen INJECT 12 UNITS SUBCUTANEOUSLY AT BEDTIME ??? losartan (Cozaar) 50 mg Tablet TAKE 1 TABLET BY MOUTH DAILY ??? Janumet 50-1,000 mg Tablet TAKE 1 TABLET BY MOUTH TWICE DAILY ??? valACYclovir (Valtrex) 500 mg Tablet Take by mouth. ??? timolol (TIMOPTIC) 0.25 % ophthalmic solution 1 drop 2 times daily. ??? latanoprost (XALATAN) 0.005 % ophthalmic solution 1 drop nightly. ??? CIS Free Text Med - Prozac 10mg, PO, Once daily ??? atorvastatin (LIPITOR) 10 mg tablet 10mg, PO, Once daily Allergies: Allergies Allergen Reactions ??? Venom-Honey Bee Family History: Family History Problem Relation Age of Onset ??? Coronary Artery Disease Father ??? Diabetes Paternal Aunt Social History: Social History Socioeconomic History ??? Marital status: Spouse name: Not on file ??? Number of children: Not on file ??? Years of education: Not on file ??? Highest education level: Not on file Occupational History ??? Not on file Tobacco Use ??? Smoking status: Never Smoker ??? Smokeless tobacco: Never Used Vaping Use ??? Vaping Use: Never used Substance and Sexual Activity ??? Alcohol use: Yes Alcohol/week: 7.0 standard drinks Types: 7 Glasses of wine per week Comment: 1 glass of wine per day ??? Drug use: Yes Types: Marijuana Comment: 1-2 times per month through smoking ??? Sexual activity: Not on file Other Topics Concern ??? Not on file Social History Narrative ??? Not on file Social Determinants of Health Financial Resource Strain: ??? Difficulty of Paying Living Expenses: Not on file Food Insecurity: ??? Worried About Running Out of Food in the Last Year: Not on file ??? Ran Out of Food in the Last Year: Not on file Transportation Needs: ??? Lack of Transportation (Medical): Not on file ??? Lack of Transportation (Non-Medical): Not on file Physical Activity: ??? Days of Exercise per Week: Not on file ??? Minutes of Exercise per Session: Not on file REVIEW OF SYSTEMS: General: 7-8 lb weight loss over 2 months, fatigue Denies chills, night sweats. Neuro: Denies seizure, TIA, CVA, ABARCA, visual changes, diplopia, weakness/numbness in extremities Psychiatric: Denies psychiatric diagnoses Cardiovascular: CAD, HTN, HLD, Father had Heart disease Denies arrythmias, CHF. Respiratory: non productive cough, dyspnea Denies asthma, COPD, emphysema, wheezing, stridor, hemoptysis, respiratory infection, TB or exposure to TB. GI: Constipation denies diarrhea : denies change in voiding habits Hematologic: Denies history of DVT, PE Endocrine: IDDM2 denies thyroid disease. Musculoskeletal: remote left shoulder injury, right rib injury Denies fractures, arthritis Integument: Denies skin cancer. Physical Exam: BP 109/70 (Patient Position: Sitting) Pulse 74 Temp 36.9 ??C (98.4 ??F) (Temporal) Resp 16 Ht 172.2 cm (5' 7.8) Wt 58 kg (127 lb 12.8 oz) SpO2 98% BMI 19.55 kg/m?? General Appearance: Alert, cooperative, no distress, appears stated age, HEENT: PERRL, MMM, non-icteric Neck: Supple, symmetrical, trachea midline, no palpable cervical adenopathy; thyroid: not enlarged, symmetric, no tenderness/mass/nodules; no carotid bruit or JVD Lungs: Left posterior chest tenderness to palpation at 5th interspace medial to scapula, Clear to auscultation with slight decrease at the left base, respirations unlabored, no wheezes, crackles or ronchi. Heart: Regular rate and rhythm, prominent S1 and S2, no murmur, rub, or gallop Abdomen: Soft, non-tender, bowel sounds normo-active in all four quadrants, no masses, no organomegaly Extremities: Extremities normal, no cyanosis, clubbing. no edema Neurologic: A+Ox3, cranial nerves II-XII grossly intact Musculoskeletal: Left arm abduction 4-/5 otherwise 5/5 throughout with normal gait Diagnostics: I have independently visualized all relevant imaging studies, including: CT Chest (11/20/20): Assessment: This is a 75 y.o. male with LLL mass (5.3 x 5.5 x5.7 cm) with pleural nodularities and recurrent pleural effusions. Plan of Management: 1. Plan for OR on Wednesday12/09/20 Bronchoscopy, Right VATS, Pleural Biopsy possible talc pleurodesis vs PleurX catheter placement. 2. PET scan prior to OR on Wednesday, if possible. 3. MRI of the brain to evaluate mets. 4. Referral to Medical Oncology 5. 30 minutes of aerobic exercise daily, at minimum. Discussed importance of this prior to and during treatment. 8. Call with any questions ZEENAT Torres I have seen the patient and reviewed the PA/resident's above history and I agree with the details aswritten. The assessment and plan were formulated in discussion with me and I agree with them as documented. Assessment: This is a 75 y.o. male with recurrent left pleural effusion, LLL mass (5.3 x 5.5 x5.7 cm) with pleural nodularities which is concerning for malignancy with pleural involvement. Plan of Management: 1. Plan for OR on Wednesday12/09/20 Bronchoscopy, Right VATS, Pleural Biopsy possible talc pleurodesis vs PleurX catheter placement. I walked the patient through the reason for the procedure, what we hopeto find out and the risks/benefits. If this is a lung malignancy, we would do a pleurodesis. If this is thymic in origin, we will most likely NOT do a pleurodesis. 2. PET scan prior to OR on Wednesday, if possible, to eval for other disease outside the chest cavity 3. MRI of the brain to evaluate mets. 4. Referral to Medical Oncology after biopsy performed 5. 30 minutes of aerobic exercise daily, at minimum. Discussed importance of this prior to and during treatment. 8. Call with any questions YESY BLUM MD documented in this encounter Plan of Treatment Upcoming Encounters Date Type Specialty Care Team Description 12/29/2021 Office Visit Hematology and Oncology Castro Leong MD [facility] DR HEMATOLOGY/[place] [address] Maylin Monet APRN [facility] HEMATOLOGY [place] [address] 12/29/2021 Infusion Hematology and Oncology Scheduled Referrals Name Type Priority Associated Order Schedule Diagnoses Referral to Outpatient Referral Routine Pleural effusion, Ord ered: Hematology and left 12/03/2020 Oncology Mass of lower lobe of left lung documented as of this encounter Results MRI Brain wwo Contrast (Generic) (12/25/2020 6:48 AM EDT) Anatomical Region Laterality Modality Head Magnetic Resonance Specimen (Source) Anatomical Location Collection Method / Collectio n Time Received Time / Laterality Volume Impressions 12/25/2020 10:45 AM EDT No evidence of intracranial metastasis. Thank you for letting us participate in the care of this patient. ??If you are a health care provider and have any questi ons regarding this report, please contact the number below. ??For patients who have questions please contact the health day care teacher that requested your imaging first. ? Electronically signed by: Esperanza Steinberg MD, [facility] ([phone]), at 12/25/2020 10:45 AM Narrative 12/25/2020 10:45 AM EDT EXAMINATION: MRI BRAIN WWO CONTRAST (GENERIC) CLINICAL HISTORY: Metastatic disease lou luation - Include more detail below Patient with Large LLL Mass 5.7cm with e ffusion, eval for mets, surgery 12-09-2020 TECHNIQUE: MRI of the brain was performed before an d after the intravenous administration of 11cc Dotarem. COMPARISON: None FINDINGS: There is mild generalized prominence of ventricles and sulci. No hydrocephalus, midline shift, mass effect or extra-axia l collection. There are multiple punctate foci of nonspecific T2 prolonga tion in the bilateral periventricular white matter suggestive of chronic small vascular ischemic changes. There is no abnormal brain parenchymal, leptomeninge al or pachymeningeal enhancement. Pituitary gland and infundibulum are nor mal in size, signal and enhancement. Cerebral aqueduct and foramen magnum are patent. Expected intracranial vascular flow voids are preserved. Paranasal sinu ses and mastoid air cells are clear. Bilateral ocular lens replacements. Procedure Note Esperanza Steinberg MD - 12/25/2020Formatt ing of this note might be different from the original. EXAMINATION: MRI BRAIN WWO CONTRAST (GEN KAROLINE) CLINICAL HISTORY: Metastatic disease lou luation - Include more detail below Patient with Large LLL Mass 5.7cm with e ffusion, eval for mets, surgery 12-09-2020 TECHNIQUE: MRI of the brain was performed before an d after the intravenous administration of 11cc Dotarem. COMPARISON: None FINDINGS: There is mild generalized prominence of ventricles and sulci. No hydrocephalus, midline shift, mass effect or extra-axia l collection. There are multiple punctate foci of nonspecific T2 prolonga tion in the bilateral periventricular white matter suggestive of chronic small vascular ischemic changes. There is no abnormal brain parenchymal, leptomeninge al or pachymeningeal enhancement. Pituitary gland and infundibulum are nor mal in size, signal and enhancement. Cerebral aqueduct and foramen magnum are patent. Expected intracranial vascular flow voids are preserved. Paranasal sinu ses and mastoid air cells are clear. Bilateral ocular lens replacements. IMPRESSION No evidence of intracranial metastasis. Thank you for letting us participate in the care of this patient. If you are a health care provider and have any questi ons regarding this report, please contact the number below. For patients w ho have questions please contact the health day care teacher that requested your imaging first. Electronically signed by: Esperanza Steinberg MD, [facility] ([phone]), at 12/25/2020 10:45 AM Yesy Blum MD IMG MRI ORDERABLES NM [place] PET CT Skull Base to Mid-thigh (12/06/2020 [...] who have questions please contact the health day care teacher that requested your imaging first. ? Narrative 12/06/2020 4:32 PM EDT EXAMINATION: [place] J[place] PET CT SKULL BASE TO MID-THIGH CLINICAL HISTORY: Metastatic disease lou luation - Include more detail below Patient with Large LLL Mass 5.7cm with e ffusion, eval for mets, surgery 12-09-2020 TECHNIQUE: Following IV injection of 18- ziqeoe-0-ukvsztdovggl (FDG) a standard uptake of approximately 60 minutes, a no ncontrast CT scan followed by a PET scan were acquired from the base of the skull to mid thighs. The noncontrast CT was used for anatomic localization and photo n attenuation correction of the PET scan. Blood glucose level: 90 (mg/dL) FDG dose: 9.2 mCi COMPARISON: CT chest 11/20/[address] [facility] ter FINDINGS: HEAD/NECK: Normal activity in all [...] might be different from the original. EXAMINATION: [place] JON[place] PET CT SKULL B ASE TO MID-THIGH CLINICAL HISTORY: Metastatic disease lou luation - Include more detail below Patient with Large LLL Mass 5.7cm with e ffusion, eval for mets, surgery 12-09-2020 TECHNIQUE: Following IV injection of 18- gutgsq-9-xrzwfbkswbpm (FDG) a standard uptake of approximately 60 minutes, a no ncontrast CT scan followed by a PET scan were acquired from the base of the skull to mid thighs. The noncontrast CT was used for anatomic localization and photo n attenuation correction of the PET scan. Blood glucose level: 90 (mg/dL) FDG dose: 9.2 mCi COMPARISON: CT chest 11/20/[address] [facility] [address] FINDINGS: HEAD/NECK: Normal activity in all [...] ho have questions please contact the health day care teacher that requested your imaging first. Yesy Blum MD IMG PET ORDERABLES documented in this encounter Visit Diagnoses Diagnosis Pleural effusion, left Unspecified pleural effusion Mass of lower lobe of left lung Pleural effusion, left Unspecified pleural effusion Mass of lower lobe of left lung Pleural effusion, left Unspecified pleural effusion Mass of lower lobe of left lung documented in this encounter Care Teams Automation Control Integrator Relationship Specialty Start Date End Date Paxton Segura MD PCP - General Family Medicine 12/03/[address] [place] [address] documented as of this encounter
--- OUTSIDE RECORDS SUMMARY | 2021-12-08 08:49 | XMS_ITS | Encounter Summary ---
:1945 Author Organization [place] [address] Care Team Providers Name Role Phone Paxton Segura MD Primary Care Provider Encounter Details Date Type Department Care Team Description 12/13/2020 Telephone Thoracic Surgery at [facility] [place], [place] [address] Social History Tobacco Use Types Packs/Day [...] encounter Miscellaneous Notes Telephone Encounter - Jaja Mills, RN - 12/13/2020 11:52 AM EDT Thoracic Surgery Nursing Post-operative Follow up: Hx: S/P Left pleural biopsies, talc pleurodesis 12/09/2020 with Asif, discharged home 12/11/2020 Post op day #: 4 General statement: 12-13-2020 1159 - Left message to call back Patient returned my call. He states that he is doing pretty well, a little sore, but just using OTCsas below. Extra strength tylenol 1000 mg alternate with ibuprofen 200 mg (2-3 tabs) every 3 hours : ex. Schedule - Extra strength Tylenol 1000 mg at 8am, ibuprofen 200 mg (2-3 tabs) at 11 am, then Extra strength tylenol 1000 mg at 2 pm, then ibuprofen 200 mg (2-3 tabs) at 5 pm. Do not exceed more than 4000 mg of Extra strength tylenol in 24 hour period. GI: appetite: good Diet: regular Hydration: good Voiding: without any difficulty BM: without any difficulty - today - What is the Bowel regimen: taking as needed Respiratory: using IS as directed SOB: denies Difficulty breathing: denies Coughing with or without sputum: denies Activity: up and about without any difficulty Integumentary: Incisions without any redness, swelling, drainage, fevers, chills, sweats, site hot to touch, bruising and bleeding Chest tube site: Bandage is off and looks fine. Plan: RTC on 12/31/2020 CXR 1000 at 3L and 3K at 1030 Dr. Asif Mcwilliams is aware of appointments and know to call with any questions or concerns. 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
--- OUTSIDE RECORDS SUMMARY | 2021-12-08 08:49 | XMS_ITS | Encounter Summary ---
:1945 Author Organization [facility] [address] Care Team Providers Name Role Phone Paxton Segura MD Primary Care Provider [phone] Reason for Visit Auth/Cert Specialty Diagnoses / Procedures Referred By Contact Refer red To Contact Diagnoses Pleural effusion effusion and masses . Procedures PRO THORACOSCOPY SURG W/PLEURODESIS PRO BRONCHOSCOPY, DIAGNOSTIC @THORACOSCOPY, SURG; W [facility] ([facility] 10.83) BRONCHOSCOPY, DIAGNOSTIC ([facility] 2.78) Referral ID Status Reason Start Date Expiration Date Visits Requ ested Visits Authorized [id number] 1 1 Encounter Details Date Type Department Care Team Description 12/09/2020 Surgery Main Operating Room Fito Blum MD [facility] DR 10.83) [facility] THORACIC SURG [address] [address] [phone] Social History Tobacco Use Types Packs/Day Years [...] Sign Reading Time Taken Comments Blood Pressure 117/60 12/09/2020 9:45 AM EDT Pulse 68 12/09/2020 9:45 AM EDT Temperature 36.6 ??C (97.9 ??F) 12/09/2020 9:28 AM EDT Respiratory Rate 9 12/09/2020 9:45 AM EDT Oxygen Saturation 98% 12/09/2020 9:45 AM EDT Inhaled Oxygen Concentration - - Weight 58 kg (127 lb 13.9 oz) 12/09/2020 6:14 AM EDT Height 172.2 cm (5' 7.8) [...] Primary * Adama Butler PA - Physician Crisis Nurse Procedure: Procedure(s): @THORACOSCOPY, SURG; W PLEURODESIS ([facility] [...] Hospital Course: Chandana Mcwilliams was admitted to [facility] on 12/09/2020 via the Day Program. [...] a nurse in the Thoracic Clinic at [phone]. After hours or on weekends or holidays please call: [phone] and ask to speak to the Thoracic Surgeon television news producer. Exercise & Activity Level: As you recover [...] please call the thoracic surgery clinic at [phone]. Driving: No driving for 1 week or [...] the Thoracic Clinic or the Thoracic Surgeon television news producer after hours. Please take over the counter [...] refer you to is OVI Pritchard RD (Director Of Testing, Certified Diabetes Care and Smokehouse Operator) is at [facility] for a fresh set of eyes. She has clinic in [facility] as well as [facility], and [email or web address] Future Appointments and Orders Future Orders Complete By Expires XR Chest PA & Lateral (Generic) [[id number] Custom] 12/25/2020 (Approximate) 12/11/2021 Process Instructions: Scheduling Instructions: Questions: Where will study be performed?: [facility] Radiology Portable exam?: Reason for exam and clinical history: s/p Left VATS, pleural biopsy, talc pleurodesis Clinical information / rodriges questions: Stat read required?: Date of injury if applicable: Requested Time: Provider Contact Information: Primary Care Provider: Paxton Segura MD [phone] Discharge References/Attachments: Discharge References/Attachments None For questions regarding this document or issues relating to this hospitalization on the Thoracic Surgery Service, please contact Dr. Blum's office at . Signed: ZEENAT Torres 12/11/2020 CC: PCP: Paxton Segura MD Referring: Sulma Root Md [address] [place] [address] documented in this encounter Discharge Instructions Discharge [...] refer you to is OVI Pritchard RD (Director Of Testing, Certified Diabetes Care and Smokehouse Operator) is at [facility] for a fresh set of eyes. She has clinic in [facility] as well as [facility], and [facility] [email or web address] Patient InstructionsAdama Butler PA - 12/11/2020 7:50 AM EDT Call if you have a fever of greater than 101 degrees, shaking chills, develop redness or drainage from your incision site(s), or if you have questions. During normal business hours, Wednesday- Wednesday 8:00a.m.-5:00 p.m., please call to speak to a nurse in the Thoracic Clinic at [phone]. After hours or on weekends or holidays please call: [phone] and ask to speak to the Thoracic Surgeon television news producer. Exercise & Activity Level: As you recover [...] please call the thoracic surgery clinic at [phone]. Driving: No driving for 1 week or [...] the Thoracic Clinic or the Thoracic Surgeon television news producer after hours. Please take over the counter [...] Explained that limits of the ability of [facility] to see patients whose medical home is not them will not permit him to see our colleague Carmen Melo however I will send him a [...] SOB. Pain controlled w/ scheduled medications, see MAR. CT to LCWS, dressing CDI. Patient voiding [...] deficits provided, if applicable: [X] N/A Kim Moise RN - 12/10/2020 7:27 PM EDT I assumed care for this patient from [phone]. See MAR for medications given during this [...] Butler PA - 12/10/2020 8:30 AM EDT [facility] Department of Thoracic Surgery Inpatient Post Op Check Note Patient Name: Chandana Mcwilliams Patient : 1945 Patient Patient Location: [address] [place] [address]- Attending Surgeon: YESY BLUM ID: Chandana Mcwilliams [...] ??C (98.6 ??F)] Heart Rate: [63-76] Resp: [9-19] BP: (98-142)/(57-71) SpO2: [96 %-100 %] Heart Rate from SpO2: [63 bpm-80 bpm] Wt & BMI By Encounter Date Admission (Current) from 12/09/2020 in [facility] Office Visit from 12/03/2020 in Thoracic Surgery at [facility] Weight 58 kg (127 lb 12.8 oz) [...] Result Value Ref Range Surgical Pathology Report [id number] Location: OR; OR11; A The signing pathologist [...] DO Verified: 12/09/2020 9:08 Pathologist Performed at: [facility] Dept. of Pathology, [place], [place] This intraoperative consultation should be interpreted as a preliminary diagnosis pending review of the entire specimen and special studies, if any. A final Surgical Pathology report will follow this preliminary Frozen Section report(s). Immunophenotyping Flow Cytometry Result Value Ref Range Immunophenotyping Flow See Comment Flow Cytometry Report Result Value Ref Range Flow Cytometry Report [id number] Location: 3WST; 0326; A The signing pathologist [...] MD Verified: 12/09/2020 14:25 Hematopathologist Performed at: [facility] Dept. of Pathology, [place], [place] DISCUSSION The viability of lymphocytes in [...] by the Clinical Flow Cytometry Laboratory at [facility]. It has not been cleared or approved [...] high complexity clinical laboratory testing. SPECIMEN PROCESSING [id number] Cells for immunophenotypic analysis were derived from [...] ZEENAT Torres 12/10/2020 Thoracic Surgery Service Pager [phone] Charlette Romero RN - 12/10/2020 4:56 AM EDT OUTCOME EVALUATION NOTE: OUTCOME SUMMARY: Patient AOx4, VSS on RA. Denies nausea/vomiting, CP, SOB. Pain controlled w/ scheduled and PRN medications, see MAR for medications given. CT to LCWS, small output overnight. Adames draining CYU. 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 Patient sleeping in between care. Will continue [...] on, hands on Surveillance [continuous indirect monitoring]: ROSIO Oshea, bed alarm Lou Esparza RN - 12/09/2020 4:58 PM EDT 1530 Pt reported self administering home insulin when this RN attempted to administer schedled does of insulin. Pt educated on reason behind using hospital ordered insulin and all home medications taken home with . Adama Butler PA - 12/09/2020 1:16 PM EDT [facility] Department of Thoracic Surgery Inpatient Post Op Check Note Patient Name: Chandana Mcwilliams Patient : 1945 Patient Patient Location: [address] [place] [address] Attending Surgeon: YESY BLUM ID: Chandana Mcwilliams [...] Visit from 12/03/2020 in Thoracic Surgery at [facility] Weight 58 kg (127 lb 12.8 oz) [...] PCR Not Detected Not Detected SARS-CoV-2 Source WINDOW CUTTER Swab Surgical Pathology Report Result Value Ref Range Surgical Pathology Report [id number] Location: OR; OR11; A The signing pathologist [...] DO Verified: 12/09/2020 9:08 Pathologist Performed at: -[facility] Dept. of Pathology, [place], [place] This intraoperative consultation should be interpreted [...] ZEENAT Torres 12/09/2020 Thoracic Surgery Service Pager [phone] Lou Esparza RN - 12/09/2020 1:04 PM EDT Pt arrived to the floor via bed from PACU. A&OX4. VSS on RA. CT to -[address] C/D/I. Incision sites well approximated. Lung sound crackly to Left Lower Lobe, other jacinto clear. Pt denies chest pain, N/T, N&V, SOB. Has a PIV on the right, 20 sudhakar, with LR running at 75. Givenlunch menu. Pt oriented to room, call guerrero [...] CIS Free Text Med - Phenergan 25mg, CO, PRN (Patient not taking: Reported on 12/03/2020) [...] ZEENAT Sanches 12/09/2020 Thoracic Surgery Service Pager [phone] documented in this encounter Miscellaneous Notes Care Management Discharge - Bel Oseguera RN - 12/11/2020 9:56 AM EDT CARE [...] Insurance: [employer] Prescription Coverage: Yes Preferred Pharmacy: [id number] - [place], [place] - [address] [facility] [address] [facility] [phone] This plan was formulated with input from [...] Oseguera RN ACM Case Management Pgr # [phone] Office of Care Management Bel Oseguera RN ACM Pager #[phone] Consult Note - Caroline Garcia APRN - [...] management and to provide a review of shelter diabetes care. Diabetes History: Chandana Mcwilliams has [...] is done several times a day with Jenni Childress-he is pleased with this and finds it os mostly within a few points of his FS BS Most recent HA1c is pending. 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 Type 2 diabetes mellitus 2000 Current Hospital Medications: ??? tamsulosin 0.4 mg [...] 20 gm carb ratio for each meal) intermediate designer diabetes care: Medications - Outpatient treatment regimen [...] COVID test: Lab Results Component Value Date [id number] Not Detected 12/09/2020 Past medical History: Past Medical History: Diagnosis Date ??? Anxiety ??? CAD (coronary artery disease) ??? Glaucoma ??? Hypertension ??? Irritable bowel syndrome ??? Type 2 diabetes mellitus 1999 Hospitalizations Within the Past 30 Days: no previous admission in last 30 days Current Decision-Making Capacity: Self Advance Care Planning: Attempt Cardiopulmonary Resuscitation - Inpatient <no information> -Advanced Directive: Other If AD's have not been completed Gena Mcwilliams (Spouse) would be surrogate decision maker per [place] surrogate decision making law. (Only good for 180 days) Any patient receiving care at [facility] must abide by [place] law. The hierarchy for surrogate decision making [...] (i) The agent with financial power of litigation attorney or a conservator appointed in accordance with RSA 464-A. (j) The guardian of the patient???s estate. Current Functional Ability: Independent Functional Status Prior to Admission: Independent Home Environment: Others in the home: spouse. Current Living Arrangements: home/apartment/condo. Accessibility Concerns:Few steps to enter; 2 level home - stays on 1st level bed/bath; no DMEs. Current DME: none Home Address (confirmed) [address] [address] Social & Family Supports: All names listed below confirmed with patient as current and correct Extended Emergency Contact Information Primary Emergency Contact: Gena Mcwilliams Address: [address] [place] [id number] [facility] Relation: Spouse Current Care Provided by: [...] Coverage: YES Preferred Pharmacy: No Pharmacies Listed [place] Status: Patient is a : No Primary Care Provider: Paxton Segura MD [phone] Patient/Caregiver Goals of Treatment: Return home Potential Needs for Transition of Care: none Agency Referrals: Pt is amenable to using [facility] IF says he needs it. Transportation: no concerns Transportation Anticipated: family or friend will provide Concerns to be Addressed: no discharge needs identified Assessment: Patient is admitted to Thoracic service for surgery Plan: A member of the Care Management team will continue to monitor progress, follow for continuity of care and assist with transition of care planningKalli Diaz RN (Jonas) RN/CM - Cellphone: [phone] Pager: [phone] Covering Service RN/CM Brief Op Note - Adama Butler PA - 12/09/2020 9:19 AM EDT Brief Operative Note Patient Name: Chandana Mcwilliams : [id number] MR#: [id number] Case Date: 12/09/2020 Surgeon: Surgeon(s) and Role: * Yesy Blum MD - Primary * Adama Butler PA - Physician Crisis Nurse Preoperative diagnosis: effusion and masses Postoperative diagnosis: [...] CYTOPATHOLOGY NON-GYNECOLOGICAL Left pleural fluid OR 11 [id number] 12/09/2020 8:24 AM Pertinent clinical data and significant therapy: effusion and masses Clinical impression: effusion and masses Procedure Type: Other (please specify in Comments Field below) Specimen Type: Pleural fluid (thoracentesis) Description and source of specimen: Left pleural fluid SPECIMEN TO PATHOLOGY Left pleural biopsy #1 OR 11 [id number] effusion and masses Left pleural biopsy #1 biopsy YES, Please perform frozen section No 12/09/2020 8:38 AM Number of tissue samples (in container) 1 Time specimen removed from patient: 8:37 AM SPECIMEN TO PATHOLOGY Left pleural biopsy #2 [id number] OR 11 effusion and masses Left pleural biopsy #2 biopsy YES, Please perform frozen section No 12/09/2020 8:42 AM Number of tissue samples (in container) 1 Time specimen removed from patient: 8:41 AM SPECIMEN TO PATHOLOGY Left pleural biopsy #2 OR 11 [id number] effusion and masses Left pleural biopsy #2 biopsy No 12/09/2020 8:43 AM Time specimen removed from patient: 8:42 AM Number of tissue samples (in container) 1 SPECIMEN TO PATHOLOGY Left pleural biopsy #3 OR 11 [id number] effusion and masses Left pleural biopsy #3 [...] especially down near the diaphragm. A 28 Singaporean chest tube was placed in the posterior [...] in stable condition. ZEENAT Chandler was my finance assistant during the entire procedure since no qualified resident was available. I was present for the entire procedure and dictated this operative note. 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 ? Narrative [...] 12/31/2020 EXAMINATION: XR CHEST PA AND LATERAL ([facility]) CLINICAL HISTORY: s/p Left VATS, pleural biopsy, [...] ho have questions please contact the health home care administrator that requested your imaging first. Electronically signed by: Gretel Barber, [facility] ([phone]), at 12/31/2020 10:23 AM Yesy Blum MD IMG DX ORDERABLES (ABNORMAL) Hemoglobin A1c (12/11/2020 9:12 AM EDT) Analysis Performed At Patho logist Time Signature Hemoglobin A1C 7.8 (H) 4.3 - 5.6 [facility] Comment: Reference Range: 4.3 - [...] Mellitus, Diabetes Care 2013; 36: Suppl. 1, S67-16 Est Avg Gluc See note mg/dL [facility] Comment: Estimated Average Glucose not appropriat [...] with hemoglobinopathies. Additional resources are available on [facility] ADA website. Daniel STEVENS, Kamille J, Cash R, et al. ??Tr anslating the A1C assay into estimated average glucose values. ??Diabetes Care 2008:31(8):4104-9923. Specimen Anatomical Collection Method Collection Time Receive d Time (Source) Location / / Volume Laterality Blood 12/11/2020 9:12 AM 9:24 EDT AM EDT Resulting Agency Comment Spec In Lab Yesy Blum MD CHEMISTRY ORDERABLES Performing Organization Address City/State/ZIP [place] [address] POCT Glucose (12/11/2020 7:35 AM EDT) athologist Signature POC Glucose 118 65 - 199 [place] mg/dL [facility] Comment: Supplemental ranges: <140 mg/dL before meals <180 mg/dL all other times of the day Specimen Anatomical Collection Method Collection Time Receive d Time (Source) Location / / Volume Laterality Blood 12/11/2020 7:35 AM 1 7:35 EDT AM EDT Yesy Blum MD POINT OF CARE TEST ORDERABLE S Performing Organization Address City/State/ZIP Code Phon e Number [address] POCT Glucose (12/11/2020 3:57 AM EDT) athologist Signature POC Glucose 120 65 - 199 [facility] Comment: Supplemental ranges: <140 mg/dL before meals <180 mg/dL all other times of the day Specimen Anatomical Collection Method Collection Time Receive d Time (Source) Location / / Volume Laterality Blood 12/11/2020 3:57 AM 1 3:57 EDT AM EDT Yesy Blum MD POINT OF CARE TEST ORDERABLE S Performing Organization Address City/State/ZIP Code Phon e Number [address] POCT Glucose (12/10/2020 11:22 PM EDT) athologist Signature POC Glucose 134 65 - 199 [place] mg/dL [facility] Comment: Supplemental ranges: <140 mg/dL before meals <180 mg/dL all other times of the day Specimen Anatomical Collection Method Collection Time Receive d Time (Source) Location / / Volume Laterality Blood 12/10/2020 11:22 12/10/2020 PM EDT 11:22 PM EDT Yesy Blum MD POINT OF CARE TEST ORDERABLE S Performing Organization Address City/State/ZIP Code Phon e Number [address] POCT Glucose (12/10/2020 8:54 PM EDT) athologist Signature POC Glucose 199 65 - 199 [facility] Comment: Supplemental ranges: <140 mg/dL before meals <180 mg/dL all other times of the day Specimen Anatomical Collection Method Collection Time Receive d Time (Source) Location / / Volume Laterality Blood 12/10/2020 8:54 PM 1 8:54 EDT PM EDT Yesy Blum MD POINT OF CARE TEST ORDERABLE S Performing Organization Address City/State/[place] [address] (ABNORMAL) POCT Glucose (12/10/2020 6:49 PM EDT) athologist Signature POC Glucose 292 (H) 65 - 199 [facility] Comment: Supplemental ranges: <140 mg/dL before meals <180 mg/dL all other times of the day Specimen Anatomical Collection Method Collection Time Receive d Time (Source) Location / / Volume Laterality Blood 12/10/2020 6:49 PM 1 6:49 EDT PM EDT Yesy Blum MD POINT OF CARE TEST ORDERABLE S Performing Organization Address City/State/[place] [address] (ABNORMAL) POCT Glucose (12/10/2020 4:39 PM EDT) athologist Signature POC Glucose 271 (H) 65 - 199 [facility] WILY mg/dL [facility] Comment: Supplemental ranges: <140 mg/dL before meals <180 mg/dL all other times of the day Specimen Anatomical Collection Method Collection Time Receive d Time (Source) Location / / Volume Laterality Blood 12/10/2020 4:39 PM 1 4:39 EDT PM EDT Yesy Blum MD POINT OF CARE TEST ORDERABLE S Performing Organization Address City/State/[place] [address] POCT Glucose (12/10/2020 8:16 AM EDT) athologist Signature POC Glucose 134 65 - 199 [place] mg/dL [facility] Comment: Supplemental ranges: <140 mg/dL before meals <180 mg/dL all other times of the day Specimen Anatomical Collection Method Collection Time Receive d Time (Source) Location / / Volume Laterality Blood 12/10/2020 8:16 AM 1 8:16 EDT AM EDT Yesy Blum MD POINT OF CARE TEST ORDERABLE S Performing Organization Address City/State/[place] [address] POCT Glucose (12/10/2020 3:43 AM EDT) athologist Signature POC Glucose 162 65 - 199 [place] mg/dL [facility] Comment: Supplemental ranges: <140 mg/dL before meals <180 mg/dL all other times of the day Specimen Anatomical Collection Method Collection Time Receive d Time (Source) Location / / Volume Laterality Blood 12/10/2020 3:43 AM 1 3:43 EDT AM EDT Yesy Blum MD POINT OF CARE TEST ORDERABLE S Performing Organization Address City/State/[place] [address] POCT Glucose (12/09/2020 11:15 PM EDT) athologist Signature POC Glucose 195 65 - 199 [place] mg/dL [facility] Comment: Supplemental ranges: <140 mg/dL before meals <180 mg/dL all other times of the day Specimen Anatomical Collection Method Collection Time Receive d Time (Source) Location / / Volume Laterality Blood 12/09/2020 11:15 12/09/2020 PM EDT 11:15 PM EDT Yesy Blum MD POINT OF CARE TEST ORDERABLE S Performing Organization Address City/State/[place] [address] (ABNORMAL) POCT Glucose (12/09/2020 7:31 PM EDT) athologist Signature POC Glucose 315 (H) 65 - 199 [place] mg/dL [facility] Comment: Supplemental ranges: <140 mg/dL before meals <180 mg/dL all other times of the day Specimen Anatomical Collection Method Collection Time Receive d Time (Source) Location / / Volume Laterality Blood 12/09/2020 7:31 PM 7:31 EDT PM EDT Yesy Blum MD POINT OF CARE TEST ORDERABLE S Performing Organization Address City/State/ZIP Code Phon e Number [facility] [place] [address] XR Chest PA & [...] who have questions please contact the health home care administrator that requested your imaging first. ? Narrative 12/10/2020 8:18 AM EDT EXAMINATION: XR [...] 2020 EXAMINATION: XR CHEST PA AND LATERAL ([facility]) CLINICAL HISTORY: post op pleurodesis TECHNIQUE: PA [...] ho have questions please contact the health home care administrator that requested your imaging first. Yesy Blum MD IMG DX ORDERABLES (ABNORMAL) POCT Glucose (12/09/2020 4:23 PM EDT) P athologist Signature POC Glucose 339 (H) 65 - 199 [facility] mg/dL [facility] Comment: Supplemental ranges: <140 mg/dL before meals <180 mg/dL all other times of the day Specimen Anatomical Collection Method Collection Time Receive d Time (Source) Location / / Volume Laterality Blood 12/09/2020 4:23 PM 4:23 EDT PM EDT Yesy Blum MD POINT OF CARE TEST ORDERABLE S Performing Organization Address City/State/ZIP Code Phon e Number [address] POCT Glucose (12/09/2020 11:47 AM EDT) athologist Signature POC Glucose 152 65 - 199 [place] mg/dL [facility] Comment: Supplemental ranges: <140 mg/dL before meals <180 mg/dL all other times of the day Specimen Anatomical Collection Method Collection Time Receive d Time (Source) Location / / Volume Laterality Blood 12/09/2020 11:47 12/09/2020 AM EDT 11:47 AM EDT Yesy Blum MD POINT OF CARE TEST ORDERABLE S Performing Organization Address City/[facility]/[place] [address] POCT Glucose (12/09/2020 9:37 AM EDT) athologist Signature POC Glucose 131 65 - 199 [place] mg/dL [facility] Comment: Supplemental ranges: <140 mg/dL before meals <180 mg/dL all other times of the day Specimen Anatomical Collection Method Collection Time Receive d Time (Source) Location / / Volume Laterality Blood 12/09/2020 9:37 AM 9:37 EDT AM EDT Yesy Blum MD POINT OF CARE TEST ORDERABLE S Performing Organization Address City/State/[place] [address] Flow Cytometry Report (12/09/2020 8:50 AM EDT) Component Value Ref Test Analysis Performed At [facility] Range Method Time [facility] Flow [id number] ? Location: 3T; 0326; A [facility] Cytometry [place] Report The signing pathologist has (i) examined the relevant preparation(s) for the [facility] specimen(s) and (ii) rendered or confirmed the [...] [place] Verified: ??12/09/2020 14:25 ??Hematopathologist Performed at: ??-[facility] [place], [place], [place] DISCUSSION The viability of lymphocytes in [...] the Clinical Flow Cytometry Lab oratory at [facility]. It has not been cleared or approve [...] complexity clinic al laboratory testing. SPECIMEN PROCESSING [id number] Cells for immunophenotypic a nalysis were derived [...] Organization Address City/State/ZIP Code Phon e Number [address] Immunophenotyping Flow Cytometry (12/09/2020 8:50 AM EDT) Component Value Ref Test Analysis Performed At [facility] gist Range Method Time Signature Immunophenotyping See [facility] Flow Comment [facility] LABORATORY Comment: When completed by the Pathologist, the F low Cytometry Report ([id number]) will display under the Pathology Result s section within eDH. Specimen Anatomical Collection Method Collection Time Receive d Time (Source) Location / / Volume Laterality Other 12/09/2020 8:50 AM 9:33 EDT AM EDT Resulting Agency Comment Spec In Lab Yesy Blum MD HEMATOLOGY ORDERABLES Performing Organization Address City/State/[place] [address] Specimen to Pathology (12/09/2020 8:48 AM EDT) Specimen Anatomical Collection Method Collection Time Receive d Time (Source) Location / / Volume Laterality AP Specimen 12/09/2020 8:48 AM 1 8:48 EDT AM EDT Narrative [facility] - 12/09/2020 8:48 AM EDT Specimen requisition ordered. ??Separate Pathology report to follow Yesy Blum MD PATHOLOGY/CYTOLOGY ORDERABLE S Performing Organization Address City/State/[place] [address] Specimen to Pathology (12/09/2020 8:43 AM EDT) Specimen Anatomical Collection Method Collection Time Receive d Time (Source) Location / / Volume Laterality AP Specimen 12/09/2020 8:43 AM 8:43 EDT AM EDT Narrative [facility] - 12/09/2020 8:43 AM EDT Specimen requisition ordered. ??Separate Pathology report to follow Yesy Blum MD PATHOLOGY/CYTOLOGY ORDERABLE S Performing Organization Address City/State/[place] [address] Specimen to Pathology (12/09/2020 8:42 AM EDT) Specimen Anatomical Collection Method Collection Time Receive d Time (Source) Location / / Volume Laterality AP Specimen 12/09/2020 8:42 AM 1 8:42 EDT AM EDT Narrative [facility] - 12/09/2020 8:42 AM EDT Specimen requisition ordered. ??Separate Pathology report to follow Yesy Blum MD PATHOLOGY/CYTOLOGY ORDERABLE S Performing Organization Address City/State/[place] [address] Solid Tumor NGS Panel (12/09/2020 8:38 AM EDT) Specimen Anatomical Collection Method Collection Time Receive d Time (Source) Location / / Volume Laterality Tissue 12/09/2020 8:38 AM 1 4:19 EDT PM EDT Resulting Agency Comment Spec In Lab Yesy Blum MD PATHOLOGY/CYTOLOGY ORDERABLE S Performing Organization Address City/State/ZIP Code Phon [place] [facility] [place] [address] [facility] [address] Surgical Pathology Report (12/09/2020 8:38 AM EDT) Component Value Ref Test Analysis Performed At [facility] Range Method Time Signature Surgical [id number] ? Location: [facility]; [facility]; A [facility] Report The signing pathologist has (i) examined the relevant preparation(s) for the [facility] specimen(s) and (ii) rendered or confirmed the [...] The assay was performed according to the hydraulic operator's instructions using Anti-PD-L1 (22C3, pharmDX) antibody. Electronically signed by: ?Davina PIERCE PhD, Moreno Mai Verified: ??12/17/2020 12:33 ??Pathologist Performed at: ??-[facility] [place], [place], [place] ?Surgic al Pathology DIAGNOSIS A - [...] Verified: ??12/12/2020 8:22 ?? Pathologist Performed at: ??-[facility] Dept. [place], [place], [place] DISCUSSION The tumor appears moderately differentiated. [...] x 0.5 x 0.3 cm. Tissue Description: [place] white soft tissue. Sections/Processing: Magazine Writer sections in 1 cassettes as follows: ?A1: ??FS-1 remnant soft tissue B - Labeled/Fixative: Left pleural biopsy #2, fresh. Quantity/Size: Single, 0.7 x 0.5 x 0.4 cm. Tissue Description: [place] white of tissue. Sections/Processing: Magazine Writer sections in 1 cassettes as follows: ?B1: [...] Verified: ??12/09/2020 9:08 ?? Pathologist Performed at: ??-[facility] [place]. [place], [place], [place] This intraoperative consultation should be interpreted [...] Organization Address City/State/ZIP [place] [address] Specimen to Pathology (12/09/2020 8:38 AM EDT) Specimen Anatomical Collection Method Collection Time Receive d Time (Source) Location / / Volume Laterality AP Specimen 12/09/2020 8:38 AM 8:38 EDT AM EDT Narrative [facility] - 12/09/2020 8:38 AM EDT Specimen requisition ordered. ??Separate Pathology report to follow Yesy Blum MD PATHOLOGY/CYTOLOGY ORDERABLE S Performing Organization Address City/State/ZIP Code Phon e [place] [address] Non-Payroll Director Final Report (12/09/2020 8:24 AM EDT) Component Value Ref Test Analysis Performed At [facility] Range Method Time Signature Non-Payroll Director [id number] ? Location: 3T; 0326; A [facility]TER Final Report WILY The signing pathologist has (i) examined the relevant preparation(s) for the [facility] specimen(s) and (ii) rendered or confirmed the diagnosis(es) . HOSPITAL LABORATORY . ? No n-Payroll Director Final DIAGNOSIS Positive for Malignancy Electronically signed by: ?Eduardo PIERCE, Yumiko Verified: ??12/12/2020 11:36 ??Pathologist Performed at: ??-[facility] Dept. 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 Note: The lesional cells are immunoreactive for p40 and CK5; they are negative for calretinin and TTF1. The im munostain findings support the diagnosis. Please see also the concurrent ??surgical ? ?specimen of left pleural ??biopsies ([id number]). PDL1 testing has been ordered on ?? [id number]. --- Immunohistochemistry Studies --- Interpretation: See note. [...] Organization Address City/State/ZIP Code Phon e Number [address] Cytopathology Non-Gynecological (12/09/2020 8:24 AM EDT) Specimen Anatomical Collection Method Collection Time Receive d Time (Source) Location / / Volume Laterality AP Specimen 12/09/2020 8:24 AM 8:24 EDT AM EDT Narrative [facility] - 12/09/2020 8:24 AM EDT Specimen requisition ordered. ??Separate Pathology report to follow Yesy Blum MD PATHOLOGY/CYTOLOGY ORDERABLE S Performing Organization Address City/State/[place] [address] COVID-19 PCR (12/09/2020 7:30 AM EDT) [facility] Method Time Signature SARS-CoV-2 Not Detected Not Detected [facility] RNA PCR [facility] Comment: This result should [...] using the Simplexa COVID-19 Direct Assay by [employer] as authorized by the FDA issued Emergency [...] Department of Pathology and Laboratory Medicine at [facility], certified under the Clinical Laboratory Improvement Amendmen [...] clinical management guidance information are available at [facility] CDC Coronavirus Disease 2019 (COVID-19) webpage under Information fo r Healthcare Professionals (https://www.cdc.gov/coronavirus/2019-nc ov/hcp/index.html). Additional information about this and ot her EUA tests can be found in provider and patient fact sheets at the following FDA website: https://www.fda.gov/medical-devices/qrsdnorjgiz-jbsuycz-1376-cpmgq-60-dejcdpqkb- usf-rwdprxcnolqzzq-dzypaha-devices/xcmmg-gwlqokvphlv-qvju SARS-CoV-2 Source [facility] Sw[facility] LABOR[facility] Specimen (Source) Anatomical Collection Method Collection Time Re ceived Time Location / / Volume Laterality Nasopharyngeal Swab 12/09/2020 7:30 12/09 AM EDT 9:13 AM EDT Comment: Symptoms->Surveillance Resulting Agency Comment Spec In Lab Yesy Blum MD MICROBIOLOGY - GENERAL ORDER RICARDO Performing Organization Address City/State/[place] [address] POCT Glucose (12/09/2020 7:25 AM EDT) P athologist Signature POC Glucose 83 65 - 199 [facility] mg/dL [facility] Comment: Supplemental ranges: <140 mg/dL before meals <180 mg/dL all other times of the day Specimen Anatomical Collection Method Collection Time Receive d Time (Source) Location / / Volume Laterality Blood 12/09/2020 7:25 AM 1 7:25 EDT AM EDT Yesy Blum MD POINT OF CARE TEST ORDERABLE S Performing Organization Address City/State/[place] [address] POCT Glucose (12/09/2020 6:15 AM EDT) athologist Signature POC Glucose 78 65 - 199 [facility] mg/dL [facility] LAB[facility] Comment: Supplemental ranges: <140 mg/dL before meals <180 mg/dL all other times of the day Specimen Anatomical Collection Method Collection Time Receive d Time (Source) Location / / Volume Laterality Blood 12/09/2020 6:15 AM 1 6:15 EDT AM EDT Yesy Blum MD POINT OF CARE TEST ORDERABLE S Performing Organization Address City/State/[place] [address] documented in this encounter Visit Diagnoses Diagnosis Pulmonary mass - Primary Swelling, mass, or lump in chest Pleural effusion, left Unspecified pleural effusion Mass of lower lobe of left lung Pleural effusion Unspecified pleural effusion Pleural effusion, left Unspecified pleural effusion Mass of lower lobe of left lung Mass of lower lobe of left lung documented in this encounter Admitting Diagnoses Diagnosis Pleural effusion Unspecified pleural effusion documented in this encounter Administered Medications Inactive Administered Medications - up to 3 most recent administrations Medication Order MAR Action Action Date Dose Rate Site acetaminophen (Tylenol) tablet Given 12/11/2020 6:47 AM EDT 1,00 0 mg 1,000 mg 1,000 mg, Oral, EVERY 6 [...] 1354, Constipation, Routine BUpivacaine (pf) (Marcaine) (5 Given 12/09/2020 9:09 AM EDT 4 mL s 19- Surgical Site mg/mL) 0.5% injection ONCE PRN, Starting on Wed12/09/20 at 0908, Until Wed12/11/20 at 1354, Intra-Operative (Intra-Procedure), Routine Given 12/09/2020 9:08 AM EDT 19 mLs 19- S urgical Site dextrose 10% infusion 250 mL, at 1,000 [...] = 37.5 grams., Routine heparin (porcine) (5,000 units/1 mL) Given [...] Given 12/10/2020 4:53 PM EDT 3 Units latanoprost (Xalatan) 0.005 % ophthalmic Given 12/10/2020 [...] Given 12/10/2020 8:47 AM EDT 5 mLs sterile talc intrapleural Given 12/09/2020 8:49 AM EDT 3 g 19- Surgical Site instillation ONCE PRN, Starting on Wed12/09/20 at 0849, Until Wed12/11/20 at 1354, Intra-Operative (Intra-Procedure), Routine tamsulosin (Flomax) capsule 0.4 mg Given 12/11/2020 [...] 12/11/2020 acetaminophen (Tylenol) tablet 1,000 mg (COMPLETED) 09 06 (Given - Provider: Elizabeth Murillo RN) 1,000 [...] Unit), Routine atorvastatin (Lipitor) tablet 10 mg 1759 (Given - Prov ider: Lou Esparza RN) 1654 (Given - Provider: Kim Newell RN) 10 mg, Oral, EVERY EVENING, First dose o n Wed12/09/20 at 1715, Until Discontinued, Routine ceFAZolin (Ancef) 2 g in dextrose 5% 100 mL (2 x 1 g/50 mL premix bags) infusion (COMPLETED) 0759 (Given - Provider: Quan Pickering MD) 2 g, Intravenous, REHABILITATION MEDICINE PHYSICIAN TO O.R., 1 dos e, On Wed12/09/20 [...] action for dose of 1g. On the MAY, document adm inistration of second bag using Next Ba g (2 of 2) MAR action for dose of 1g (resulting in total dose of 2g)., Indication for (Active or Suspected): Prophylaxis docusate sodium (Colace) capsule 100 mg 1758 (Given - Provider: Lou Esparza RN)2026 (Given - Provider: Charlette Romero RN) 0847 (Given - Provider: Eli Garcia RN)1354 (Given - Provider: Eli Garcia RN)2057 (Given - Provider: Charlette Romero RN) 0832 (Given - Provider: Shirley Mccall RN) 100 mg, Oral, 3 TIMES DAILY, First dose on Wed12/09/20 at 1715, Until Discontinued, Routine FLUoxetine (PROzac) capsule 10 mg 1758 (Given - Provid er: Lou Esparza RN) 0847 (Given - Provider: Eli Garcia RN) 0832 (Gi carlos - Provider: Shirley Mccall RN) 10 mg, Oral, DAILY, First dose on Wed at 1715, Until Discontinued, Routine heparin (porcine) (5,000 units/1 mL) sub cutaneous injection 5,000 Units (COMPLETED) 07 (Given - Provider: Elizabeth Murillo RN) 5,000 Units, Subcutaneous, REHABILITATION MEDICINE PHYSICIAN TO O. R., 1 dose, On Wed12/09/20 at 0715, Routine heparin (porcine) (5,000 units/1 mL) subcutaneous inje ction 5,000 Units 1800 (Given - Provider: Lou Esparza, RN)2025 (Given - Provider: Charlette Romero, RN) 0545 (Given - Provider: Charlette johnson RN)1310 (Given - Provider: Eli Garcia, TAMMY)2056 (Given - Provider: Charlette Romero, RN) 0647 (Given - Provider: Charlette Romero, RN) 5,000 Units, Subcutaneous, EVERY 8 HOURS SCHEDULED, First dose on Wed12/09/20 at 1715, Until Discontinued, Routine insulin glargine (Lantus) (100 unit/mL) subcutaneous i njection vial 13 Units 2025 (Given - Provider: Charlette Romero, RN) 2056 (Given - Provider: Charlette Romero, RN) 13 Units (rounded from 12.5 Units), Subc utaneous, NIGHTLY, First dose on Wed12/09/20 at 2100, Until Discontinued, Routine insulin lispro (HumaLOG;Admelog) (100 un it/mL) subcutaneous injection vial 0-6 Units 1825 (Given - Provider: Kim chilel RN) 0832 (Given - Provider: Shirley Mccall RN) 0-6 Units, Subcutaneous, 3 TIMES DAILY W [...] RN) 0847 (Given - Provider: Eli Garcia, TAMMY)1307 (Given - Provider: Eli Garcia, TAMMY) 0-8 Units, Subcutaneous, 3 TIMES DAILY W ITH MEALS, First dose on Wed12/09/20 at 1200, Until Discontinued, MEAL ASSOCIATED Give 1 unit for every 10 grams carbohydrate. Hold if not eating or if BG less than 70 mg/dL., Routine insulin lispro (HumaLOG;Admelog) (100 un it/mL) subcutaneous injection vial 1-4 Units(Linked Group 1) 165 (Given - Provider: Vinh Newell, TAMMY)185 (Given - Provider: Kim Newell, TAMMY)2056 (Given - Provider: Charlette Romero RN) 0000 [...] it/mL) subcutaneous injection vial 1-5 Units (CANCELED) 1722 (Given - Provider: Lou parra, RN - Comment: BG 339)2024 (Given - [...] RN) 1113 (Patch Applied - Provider: Eli Garcia RN) 1130 (Not Given - Provider: Shirley Mccall [...] Garcia, TAMMY) 0832 (Given - Provider: Shirley Mccall, TAMMY) 50 mg, Oral, DAILY, First dose on [...] RN) 0847 (Given - Provider: Eli Garcia RN)2056 (Given - Provider: Charlette Romero RN) 0833 (Given - Provider: Shirley Mccall, TAMMY) 5 mL, Intravenous, 2 TIMES DAILY, First dose on Wed12/09/20 at 2100, Until Discontinued, Recovery (Recovery-Hospital Unit), Routine tamsulosin (Flomax) capsule 0.4 mg 0847 (Given - Provider: Eli Garcia RN) 0832 (Given - Provider: Shirley cazares, TAMMY) 0.4 mg, Oral, DAILY, First dose on Wed at 0900, Until Discontinued, DO NOT CRUSH OR OPEN, Routine timoloL (Timoptic) 0.25 % ophthalmic solution 1 drop 2 (Given - Provider: Charlette Romero RN) 0846 (Given - Provider: Eli Garcia , TAMMY)2057 (Given - Provider: Charlette Romero RN) 0835 (Given - Provider: Shirley cazares, [...] MD)1003 (New Bag - Provider: Maylin Fisher, RN) 1,000 mL, at 100 mL/hr, Intravenous, CON [...] (Marcaine) (5 mg/mL) 0.5% injection ( CANCELED) 0908 (Given - Provider: Yesy Blum MD)0909 (Given - Provider: Yesy Blum MD) ONCE [...] Unit), Routine sterile talc intrapleural instillation (CANCELED) 0849 (Given - Provider: Yesy Blum MD) ONCE [...] documented as of this encounter Care Teams Merchandise Clerk Relationship Specialty Start Date End Date Paxton Segura MD PCP - General Family Medicine 12/03/[address] [place] [address] documented as of this encounter
--- OUTSIDE RECORDS SUMMARY | 2021-12-08 08:50 | XMS_ITS | Encounter Summary ---
:1945 Author Organization [facility] Address [address] [place] [address] Care Team Providers Name Role Phone Paxton Segura MD Primary Care Provider [phone] Encounter Details Date Type Department Care Team Description 11/06/2020 Lab Requisition [facility] Sulma Root for other Pathology & E, general examination Laboratory Medicine [address] [place], [place] [address] [facility] [address] [place] [address] Social History Tobacco Use Types Packs/Day Years Used Date Never Assessed Sex Assigned at Date Recorded Not on file documented as of this encounter Plan of Treatment Not on filedocumented as of this encounter Procedures Procedure Name Priority Date/Time Associated Diagnosis Comme nts LEUKEMIA/LYMPHOMA Today 11/05/2020 11:15 Encounter for other Results for this PANEL BY FLOW EDT general examination procedu re are in CYTOMETRY the results section. documented in this encounter Results LEUKEMIA/LYMPHOMA PANEL BY FLOW CYTOMETRY (11/05/2020 11:15 EDT) Final Pleural fluid, left, flow cytometric analysis: [facility] Immunophenotypic - No immunophenotypic eviden ce of a clonal cell population. See comment. CENTER Interpretation LABORATORY SERVICES Comment The results of flow [facility] cytometry show no CENTER immunophenotypic LABORATORY evidence of involvement SERVICES by a clonal lymphoproliferative disorder. Flow cytometry is not sensitive for the detection of large cell lymphoma or Hodgkin lymphoma. Correlation of these findings with morphologic and clinical data is essential. Attestation There was significant [facility] Electr onically resident/fellow CENTER signed by Pineda, involvement in the LABORATORY Erika Rojas MD diagnostic evaluation SERVICES on 10/20 at of this case. By the 1527 signature below, the attending physician certifies that they have personally conducted a gross and/or microscopic examination of the described specimens and rendered or confirmed the above diagnosis. Clinical History 75 yo male with left [facility] pleural effusion. [facility] SERVICES Description The specimen consists of per ipheral blood that has been prepared using ammonium chloride lysing agent. Gating is performed using CD45 fluorescence and side scatter. Cellular viability (assessed by propi [facility] dium iodide exclusion) is ex cellent (99%) among cells with CD45 and side scatter properties typical of lymphocytes and excellent (98%) among CD45+ events overall. Scatter plots incorporating all of the [facility] markers have been interprete d and evaluated for the presence or absence of abnormal cell populations. Only pertinent abnormal findings are included. If not otherwise addressed all other markers were normal/negative. LABORATORY SERVICES A majority of the lymphoid c ells are T-lymphocytes (CD2+CD3+CD5+CD7+) with CD4+ and CD8+ subsets represented. The remaining lymphocytes are B-lymphocytes (CD19+CD20+) and NK-cells (CD2+CD3-CD16+CD56+). B-cells are few in number bu t appear polytypic. The remainder of the CD45+ events is predominantly of myeloid lineage. Flow Markers CD2, CD3, CD4, CD5, [facility] CD7, CD8, CD10, CD11b, CENTER CD11c, CD14, CD16, LABORATORY CD19, CD20, CD22, CD23, SERVICES CD38, CD45, CD56, CD57, FMC7, HLADR, [place], and Lambda. FDA Disclaimer This test was developed [facility] and its performance CENTER characteristics LABORATORY determined by the SERVICES Department of Pathology and Laboratory Medicine, [facility], [place], [place] It has not been cleared or approved by the U.S. Food and Drug Administration. FDA does not require this test to go through premarket FDA review. This test is used for clinical purposes. It should not be regarded as investigational or for research. This laboratory is certified under the Clinical Laboratory Improvement Amendments (CLIA) as qualified to perform high complexity clinical laboratory testing. Resident/Fellow: Columba Canales, [facility]OR[facility] SERVICES Scanned Images [facility] SERVICES Specimen Fluid - Fluid, Peritoneal Fluid (Cytolog y: Best Practice is to submit 100 - 1000ml) Performing Organization Address City/State/ZIP Code Phon e Number [facility] [address] [place] [address] SERVICES documented in this encounter Visit Diagnoses Diagnosis Encounter for other general examination documented in this encounter Care Teams Hand Spring Repairer Relationship Specialty Start Date End Date Paxton Segura MD PCP - General 02/21/[address] [place] [address] documented as of this encounter
--- OUTSIDE RECORDS SUMMARY | 2021-12-08 08:50 | XMS_ITS | Clinical Summary ---
:1945 Author Organization [facility] Address [address] [place] [address] Care Team Providers Name Role Phone Paxton Segura MD Primary Care Provider [phone] Social History Tobacco Use Types Packs/Day Years Used Date Never Assessed Sex Assigned at Date Recorded Not on file Plan of Treatment Health Maintenance Due Date Last Done Comments Hepatitis C Screen 1945 COVID-19 Vaccine (1) 08/14/1950 Fall Risk Screening 08/14/2011 Insurance Payer Benefit Plan / Subscriber ID Effective Phone Address T ype Group Dates MEDICARE MEDICARE A/B [id number] 2011-Prese [address] [place] [address] CIGNA CIGNA [id number] 2002-Prese [phone] [address] [facility] [id number] [place] [address] Care Teams Branch Controller Relationship Specialty Start Date End Date Paxton Segura MD PCP - General 02/21/[address] [place], [place] [id number]
--- OUTSIDE RECORDS SUMMARY | 2021-12-08 08:50 | XMS_ITS | Encounter Summary ---
:[address] [facility] Address [address] [place] [address] Care Team Providers Name Role Phone Paxton Segura MD Primary Care Provider [phone] Encounter Details Date Type Department Care Team Description 04/14/2021 Lab Requisition [facility] Outr Resulting Lab, Pathology & Laboratory Provider [facility] [address], [place] [id number] Social History Tobacco Use Types Packs/Day Years Used Date Never Assessed Sex Assigned at Date Recorded Not on file documented as of this encounter Plan of Treatment Not on filedocumented as of this encounter Procedures Procedure Name Priority Date/Time Associated Comments Diagnosis PSA TOTAL, Routine 04/14/2021 7:51 EST Results for this DIAGNOSTIC procedure are i n the results section. documented in this encounter Results PSA TOTAL, DIAGNOSTIC (04/14/2021 7:51 EST) Pathologist Sig nature PSA 2.2 0.0 - 6.5 ng/mL [facility] Specimen Blood - Venous blood (substance) Narrative [facility] - 04/14/2021 17:42 EST NOTE: Serum PSA concentration should not be in terpreted as absolute evidence for the presence or absence of malignant disease. Assayed on Siemens ADVIA Centaur XPT usi ng chemiluminescent technology.??Values obtained by using different assay methods cannot be used interchangeably. Performing Organization Address City/State/ZIP Code Phon e Number [facility] [address] [place] [address] SERVICES documented in this encounter Visit Diagnoses Not on filedocumented in this encounter Care Teams Primary School Teacher Relationship Specialty Start Date End Date Paxton Segura MD PCP - General 02/21/18 [address] [place] [address] documented as of this encounter
--- OUTSIDE RECORDS SUMMARY | 2021-12-08 08:50 | XMS_ITS | Encounter Summary ---
:1945 Author Organization [facility] Address [address] [place] [address] Care Team Providers Name Role Phone Paxton Segura MD Primary Care Provider Encounter Details Date Type Department Care Team Description 11/05/2020 Lab Requisition [facility] Outr Resulting Lab, Pathology & Laboratory Provider [facility] [address] [place], [place] [id number] Social History Tobacco Use Types Packs/Day Years Used Date Never Assessed Sex Assigned at Date Recorded Not on file documented as of this encounter Plan of Treatment Not on filedocumented as of this encounter Procedures Procedure Name Priority Date/Time Associated Diagnosis Comme nts GLUCOSE, FLUID Routine 11/05/2020 11:15 EDT Resul ts for this procedure are i n the results section . documented in this encounter Results GLUCOSE, FLUID (11/05/2020 11:15 EDT) Glucose, Fluid 196 See Note [facility] [[email or web address] MEDICAL Comment: mg/dL [facility] Reference range unavailable. Clinical correlation requ ired. SERVICES This Fluid Glucose assay was developed and its performance characteristics determined by [facility]. ??It has not been cleared or approved by the Food and Drug Administration. Specimen Fluid - Fluid, Pleural Fluid (Cytology: Best Practice is to submit 100 - 1000ml) Narrative [facility] - 11/05/2020 21:57 EDT Pleural Fluid Performing Organization Address City/State/ZIP Code Phon e Number [facility] [address] [place] [address] SERVICES documented in this encounter Visit Diagnoses Not on filedocumented in this encounter Care Teams Manager Performance Improvement Relationship Specialty Start Date End Date Paxton Segura MD PCP - General 02/21/[address] [place] [address] documented as of this encounter
--- OUTSIDE RECORDS SUMMARY | 2021-12-08 08:50 | XMS_ITS | Encounter Summary ---
:1945 Author Organization [facility] Address [address] [place] [address] Care Team Providers Name Role Phone Paxton Segura MD Primary Care Provider [phone] Encounter Details Date Type Department Care Team Description 11/27/2020 Lab Requisition [facility] Outr Resulting Lab, Pathology & Laboratory Provider [facility] [address] [place], [place] [id number] Social History Tobacco Use Types Packs/Day Years Used Date Never Assessed Sex Assigned at Date Recorded Not on file documented as of this encounter Plan of Treatment Not on filedocumented as of this encounter Procedures Procedure Name Priority Date/Time Associated Comments Diagnosis QUANTIFERON TB GOLD Routine 11/26/2020 7:29 Resul ts for this PLUS EDT procedure are i n the results section. documented in this encounter Results QUANTIFERON TB GOLD PLUS (11/26/2020 7:29 EDT) Quantiferon NegativeComment: Negative [facility] Interpretation Negative: No [facility] interferon-gamma SERVICES response to M. tuberculosis antigens was detected. Infection with M. tuberculosis is unlikely. A single negative result does not exclude infection with M. tuberculosis. In patients at demetris risk for M. tuberculosis infection,, a second test should be considered in accordance with the 2017 ATS/IDSA/CDC Clinical Practice Guidelines for Diagnosis of Tuberculosis in Adults and Children (Pablo STEVENS et. al. Sandra. Infect. Dis. 2017:64 (2):111-115) Results were obtained with the Qiagen QuantiFERON-TB Gold Plus QIAN. TB1 Ag minus Nil 0.00 IU/ml [facility] TB2 Ag minus Nil 0.00 IU/mL [facility] Specimen Blood - Venous blood (substance) Narrative [facility] - 11/28/2020 13:06 EDT Results were obtained with the Qiagen QuantiFERON-TB Gold Plus CLIA. New platform in use 11/27/2020 Performing Organization Address City/State/ZIP Code Phon e Number [facility] [address] [place] [address] SERVICES documented in this encounter Visit Diagnoses Not on filedocumented in this encounter Care Teams Metal Fitters And Machinists Relationship Specialty Start Date End Date Paxton Segura MD PCP - General 02/21/[address] [place] [address] documented as of this encounter
--- OUTSIDE RECORDS SUMMARY | 2021-12-08 08:51 | XMS_ITS | Encounter Summary ---
:1945 Author Organization [facility] Address [address] [place] [address] Care Team Providers Name Role Phone Paxton Segura MD Primary Care Provider [phone] Encounter Details Date Type Department Care Team Description 04/09/2020 Lab Requisition [facility] Outr Resulting Lab, Pathology & Laboratory Provider [facility] [address] [place], [place] [id number] Social History Tobacco Use Types Packs/Day Years Used Date Never Assessed Sex Assigned at Date Recorded Not on file documented as of this encounter Plan of Treatment Not on filedocumented as of this encounter Procedures Procedure Name Priority Date/Time Associated Comments Diagnosis PSA TOTAL, Routine 04/09/2020 12:00 Results for this DIAGNOSTIC EST procedure are i n the results section. documented in this encounter Results PSA TOTAL, DIAGNOSTIC (04/09/2020 12:00 EST) Pathologist Sig nature PSA 3.2 0.0 - 6.5 ng/mL [facility] Specimen Blood - Venous blood (substance) Narrative [facility] - 04/09/2020 22:39 EST NOTE: Serum PSA concentration should not be in terpreted as absolute evidence for the presence or absence of malignant disease. Assayed on Siemens ADVIA Centaur XPT usi ng chemiluminescent technology.??Values obtained by using different assay methods cannot be used interchangeably. Performing Organization Address City/State/ZIP Code Phon e Number [facility] [address] [place] [address] SERVICES documented in this encounter Visit Diagnoses Not on filedocumented in this encounter Care Teams Transfer Table Operator Helper Relationship Specialty Start Date End Date Paxton Segura MD PCP - General 02/21/18 [address] [place] [address] documented as of this encounter
--- OUTSIDE RECORDS SUMMARY | 2021-12-08 08:51 | XMS_ITS | Encounter Summary ---
:1945 Author Organization [facility] Address [address] [place] [address] Care Team Providers Name Role Phone Paxton Segura MD Primary Care Provider [phone] Encounter Details Date Type Department Care Team Description 10/22/[address] [facility] effusion, Pathology & E, not elsewhere Laboratory Medicine [address] [place] [address] [facility] [address] [place], [place] [id number] Social History Tobacco Use Types Packs/Day Years Used Date Never Assessed Sex Assigned at Date Recorded Not on file documented as of this encounter Plan of Treatment Not on filedocumented as of this encounter Procedures Procedure Name Priority Date/Time Associated Diagnosis Comme nts LEUKEMIA/LYMPHOMA Today 10/21/2020 15:38 Pleural effusion, R esults for this PANEL BY FLOW EDT not elsewhere procedure are in CYTOMETRY classified the results section. documented in this encounter Results LEUKEMIA/LYMPHOMA PANEL BY FLOW CYTOMETRY (10/21/2020 15:38 EDT) Pathologist [facility] Immunophenotypic Peripheral blood, flow cytometric analysis: CENTER Interpretation - No immunophenotypic abnormalities are detected . See comment. LABORATORY SERVICES Comment The results of flow [facility] cytometry show no CENTER immunophenotypic LABORATORY evidence of a clonal SERVICES B-cell or atypical T-cell population, or increased blasts. Correlation of these findings with morphologic and clinical data is essential. Attestation By the [facility] MEDICAL Electronica lly below, the attending CENTER signed by physician Sona certifies LABORATORY Oz santiago DO that they have 1) SERVICES on at personally conducted 1315 a gross and/or microscopic examination of the described specimen(s), and/or personally interpreted the results of laboratory testing of the described specimen(s), and 2) personally rendered or confirmed the above diagnosis. Clinical History 75 yo male with [facility] pleural effusion. [facility] LABORATORY SERVICES Description The specimen consists of per ipheral blood that has been prepared using ammonium chloride lysing agent. Gating is performed using CD45 fluorescence and side scatter. Cellular viability (assessed by propi [facility] dium iodide exclusion) is ex cellent 100%) among cells with CD45 and side scatter properties typical of lymphocytes and excellent (99%) among CD45+ events overall. Scatter plots incorporating all of the [place] markers have been interprete d and evaluated for the presence or absence of abnormal cell populations. Only pertinent abnormal findings are included. If not otherwise addressed all other markers were normal/negative. LABORATORY SERVICES A majority of the lymphoid c ells are T-lymphocytes (CD2+CD3+CD5+CD7+) with CD4+ and CD8+ subsets represented. The remaining lymphocytes are B-lymphocytes (CD19+CD20+) and NK-cells (CD2+CD3-CD16+CD56+). Among the B-cells, both edilia a+ and lambda+ subsets are represented. The remainder of the CD45+ events is predominantly of myeloid lineage. There is no increase in blasts. Flow Markers CD2, CD3, CD4, CD5, [facility] CD7, CD8, CD10, CENTER CD11b, CD11c, CD13, LABORATORY CD14, CD16, CD19, SERVICES CD20, CD22, CD23, CD33, CD34, CD38, CD45, CD56, CD57, CD117, FMC7, HLADR, Vazquez, and Lambda. FDA Disclaimer This test was [facility] developed and its CENTER performance LABORATORY characteristics SERVICES determined by the Department of Pathology and Laboratory Medicine, [facility], [place], [place]. It has not been cleared or [...] to perform high complexity clinical laboratory testing. Scanned Images [facility] Specimen Blood - Venous blood (substance) Performing Organization Address City/State/ZIP Code Phon e Number [facility] [address] [place] [address] SERVICES documented in this encounter Visit Diagnoses Diagnosis Pleural effusion, not elsewhere classifi ed documented in this encounter Care Teams Magazine Worker Relationship Specialty Start Date End Date Paxton Segura MD PCP - General 02/21/[address] [place] [address] documented as of this encounter
--- OUTSIDE RECORDS SUMMARY | 2021-12-08 08:51 | XMS_ITS | Encounter Summary ---
:1945 Author Organization [facility] Address [address] [place] [address] Care Team Providers Name Role Phone Paxton Segura MD Primary Care Provider [phone] Encounter Details Date Type Department Care Team Description 03/24/2019 Lab Requisition [facility] Unknown, Provider, Pathology & Laboratory [facility] [address] [place] [address] [place] [address] Social History Tobacco Use Types Packs/Day Years Used Date Never Assessed Sex Assigned at Date Recorded Not on file documented as of this encounter Plan of Treatment Not on filedocumented as of this encounter Procedures Procedure Name Priority Date/Time Associated Comments Diagnosis PSA TOTAL, Routine 03/24/2019 15:00 Results for this DIAGNOSTIC EST procedure are i n the results section. documented in this encounter Results PSA TOTAL, DIAGNOSTIC (03/24/2019 15:00 EST) Pathologist Sig nature PSA 2.4 0.0 - 6.5 ng/mL [facility] Specimen Blood - Venous blood (substance) Narrative [facility] - 03/27/2019 10:35 EST NOTE: Serum PSA concentration should not be in terpreted as absolute evidence for the presence or absence of malignant disease. Assayed on Siemens ADVIA Centaur XPT usi ng chemiluminescent technology.??Values obtained by using different assay methods cannot be used interchangeably. Performing Organization Address City/State/ZIP Code Phon e Number [facility] [address] [place] [address] SERVICES documented in this encounter Visit Diagnoses Not on filedocumented in this encounter Care Teams Gas Transfer Operator Relationship Specialty Start Date End Date Paxton Segura MD PCP - General 02/21/[address] [place] [address] documented as of this encounter
--- OUTSIDE RECORDS SUMMARY | 2021-12-08 08:51 | XMS_ITS | Encounter Summary ---
:1945 Author Organization [facility] Address [address] [place] [address] Care Team Providers Name Role Phone Paxton Segura MD Primary Care Provider [phone] Encounter Details Date Type Department Care Team Description 10/02/2020 Lab Requisition [facility] Outr Resulting Lab, Pathology & Laboratory Provider [facility] [address] [place], [place] [id number] Social History Tobacco Use Types Packs/Day Years Used Date Never Assessed Sex Assigned at Date Recorded Not on file documented as of this encounter Plan of Treatment Not on filedocumented as of this encounter Procedures Procedure Name Priority Date/Time Associated Diagnosis Comme nts GLUCOSE, FLUID Routine 10/02/2020 15:25 EDT Resul ts for this procedure are i n the results section . documented in this encounter Results GLUCOSE, FLUID (10/02/2020 15:25 EDT) Glucose, Fluid 123 See Note [facility] Comment: mg/dL [facility] Reference range unavailable. Clinical correlation requ ired. SERVICES This Fluid Glucose assay was developed and its performance characteristics determined by [facility]. ??It has not been cleared or approved by the Food and Drug Administration. Specimen Fluid - Fluid, Pleural Fluid (Cytology: Best Practice is to submit 100 - 1000ml) Narrative [facility] - 10/02/2020 21:12 EDT Pleural fluid. Performing Organization Address City/State/ZIP Code Phon e Number [facility] [address] [place] [address] SERVICES documented in this encounter Visit Diagnoses Not on filedocumented in this encounter Care Teams Popcorn Machine Operator Relationship Specialty Start Date End Date Paxton Segura MD PCP - General 02/21/[address] [place] [address] documented as of this encounter
--- OUTSIDE RECORDS SUMMARY | 2021-12-08 08:51 | XMS_ITS | Encounter Summary ---
:1945 Author Organization [facility] Address [address] [place] [address] Care Team Providers Name Role Phone Unknown, Provider Primary Care Provider Encounter Details Date Type Department Care Team Description 02/18/2018 Results Only [facility] Gruber, [address] [place] [address] [facility] [place] [address] (Wo rk) Social History Tobacco Use Types Packs/Day Years Used Date Never Assessed Sex Assigned at Date Recorded Not on file documented as of this encounter Plan of Treatment Not on filedocumented as of this encounter Procedures Procedure Name Priority Date/Time Associated Diagnosis Comme [facility] SURGICAL PATHOLOGY Routine 02/18/2018 16:52 Resul ts for this EST procedure are i n the results section. documented in this encounter Results SURGICAL PATHOLOGY (02/18/2018 16:52 EST) Pathology Report: SURGICAL PATHOLOGY REPORT [facility] Reports generated via electronic interface conta in original data; [facility]ENTER LABORATORY however they are lacking the format of the original re port. SERVICES Caution should be taken when reading/interpreting unfo rmatted reports. Name: ? JAIME MCWILLIAMS ? Accession #: ? [id number] ? : ? 1945 (Age: [age]) ??M ? Collect Date: ? 02/18/2018 ? Location: ? [facility] ? Receive Date: ? 018 ? Provider: MIO CABRERA MD Copy to: ELVA TRAN MD ? Final Pathologic Diagnosis: A. PROSTATE, RIGHT BASE LATERAL, NEEDLE CORE BIOPSY (1 ): - ??Prostatic tissue (9.3 mm) with atrophy. ? B. PROSTATE, RIGHT BASE MEDIAL, NEEDLE CORE BIOPSY (1) : - ??Prostatic tissue (9.2 mm) with mild atrophy. ? C. PROSTATE, RIGHT MID LATERAL, NEEDLE CORE BIOPSY (1) : - ??Prostatic tissue (7.0 mm) with atrophy. ? D. PROSTATE, RIGHT MID MEDIAL, NEEDLE CORE BIOPSY (1): - ??Prostatic tissue (15.5 mm) with atrophy. - ??Fragment of ano-colorect al mucosa with no specific histopathologic features. ? E. PROSTATE, RIGHT APEX LATERAL, NEEDLE CORE BIOPSY (1 ): - ??Prostatic tissue (15.0 mm) with focal atrophy. ? F. PROSTATE, RIGHT APEX MEDIAL, NEEDLE CORE BIOPSY (1) : - ??Prostatic tissue (13.0 m m) with focal atrophy and focal chronic inflammation. ? G. PROSTATE, LEFT BASE LATERAL, NEEDLE CORE BIOPSY (1) : - ??Prostatic tissue (9.6 mm) with no specific histopa thologic features. ? H. PROSTATE, LEFT BASE MEDIAL, NEEDLE CORE BIOPSY (1): - ??Prostatic tissue (13.1 mm) with no specific histop athologic features. ? I. PROSTATE, LEFT MID LATERAL, NEEDLE CORE BIOPSY (1): - ??Prostatic tissue (13.8 mm) with no specific histop athologic features. ? J. PROSTATE, LEFT MID MEDIAL, NEEDLE CORE BIOPSY (2): - ??Prostatic tissue (14.0 mm) with focal atrophy. - ??Fibromuscular tissue (2.0 mm) with benign colorect al mucosa. ? K. PROSTATE, LEFT APEX LATERAL, NEEDLE CORE BIOPSY (1) : - ??Prostatic tissue (12.5 mm) with mild atrophy. ? L. PROSTATE, LEFT APEX MEDIAL, NEEDLE CORE BIOPSY (1): - ??Prostatic tissue (10.9 mm) with atrophy. Document reviewed and electronically signed by: Allie Manzo MD Report ??Date: 02/24/2018 11:36 By the signature above, the attending physician certif ies that he/she has personally conducted a gross and/or microscopic examin ation of the described specimens and rendered or confirmed the above diagnosi s. Specimen(s) Received: A. ??Rt base lateral B. ??Rt base medial C. ??Rt mid lateral D. ??Rt mid medial E. ??Rt apex lateral F. ??Rt apex medial G. ??Lt base lateral H. ??Lt base medial I. ??Lt mid lateral J. ??Lt mid medial K. ??Lt apex lateral L. ??Lt apex medial Clinical History: PSA 4.7 Gross Description: A. ?Received in formalin labelled with proper p atient identification (initials F, J) and Rt base lateral is a single pizarro-white tissue core (1.1 cm in length x 0.1 cm in diameter). Submitted intact in A 1. B. ?Received in formalin labelled with proper p atient identification (initials F, J) and Rt basa l medial is a single pizarro-white tissue core (1.0 cm in length x 0.1 cm in diameter). Submitted intact in B 1. C. ?Received in formalin labelled with proper p atient identification (initials F, J) and Rt mid lateral are two pizarro-white tissue cores (0.3 cm and 1.4 cm in length, and each 0.1 cm in diameter). Entire ly submitted in C1. D. ?Received in formalin labelled with proper p atient identification (initials F, J) and Rt mid medial is a single pizarro-white tissue core (2.1 cm in length x 0.1 cm in diameter). Submitted intact in D1. E. ?Received in formalin labelled with proper p atient identification (initials F, J) and Rt apex lateral is a single pizarro-white tissue core (1.8 cm in length x 0.1 cm in diameter). Submitted intact in E 1. F. ?Received in formalin labelled with proper p atient identification (initials F, J) and Rt apex medial is a single pizarro-white tissue core (1.4 cm in length x 0.1 cm in diameter). Submitted intact in F 1. G. ?Received in formalin labelled with proper p atient identification (initials F, J) and Lt base lateral is a single pizarro-white tissue core (1.1 cm in length x 0.1 cm in diameter). Submitted intact in G 1. H. ?Received in formalin labelled with proper p atient identification (initials F, J) and Lt base medial is a single pizarro-white tissue core (1.6 cm in length x 0.1 cm in diameter). Submitted intact in H 1. I. ?Received in formalin labelled with proper p atient identification (initials F, J) and Lt mid lateral is a single pizarro-white tissue core (1.4 cm in length x 0.1 cm in diameter). Submitted intact in I 1. J. ?Received in formalin labelled with proper p atient identification (initials F, J) and Lt mid medial is a single pizarro-white tissue core (1.5 cm in length x 0.1 cm in diameter). Submitted intact in J1. K. ?Received in formalin labelled with proper p atient identification (initials F, J) and Lt apex lateral is a single pizarro-white tissue core (1.3 cm in length x 0.1 cm in diameter). Submitted intact in K 1. L. ?Received in formalin labelled with proper p atient identification (initials F, J) and Lt apex medial is a single pizarro-white tissue core (1.4 cm in length x 0.1 cm in diameter). Submitted intact in L 1. Dr. Carcamo 02/19/2018 9:57 AM End of Report Specimen Performing Organization Address City/State/ZIP Code Phon e Number [facility] [address] [place] [address] SERVICES documented in this encounter Visit Diagnoses Not on filedocumented in this encounter Care Teams Health Insurance Specialist Relationship Specialty Start Date End Date Unknown, Provider, PCP - General 02/18/18 02/20/18 documented as of this encounter
--- OUTSIDE RECORDS SUMMARY | 2021-12-08 08:51 | XMS_ITS | Encounter Summary ---
:1945 Author Organization [facility] Address [address] [place] [address] Care Team Providers Name Role Phone Paxton Segura MD Primary Care Provider [phone] Encounter Details Date Type Department Care Team Description 10/03/2020 Lab Requisition [facility] Maylin Garcia for other Pathology & M, DO general examination Laboratory Medicine - [address] [facility] [address] [place] [phone] Social History Tobacco Use Types Packs/Day Years Used Date Never Assessed Sex Assigned at Date Recorded Not on file documented as of this encounter Plan of Treatment Not on filedocumented as of this encounter Procedures Procedure Name Priority Date/Time Associated Diagnosis Comme nts NON DISPLAY FABRICATOR/FNA Today 10/02/2020 15:32 Encounter for other Resu lts for this CYTOLOGY EDT general examination procedur e are in the results section. documented in this encounter Results NON DISPLAY FABRICATOR/FNA CYTOLOGY (10/02/2020 15:32 EDT) Pathologist Sig nature Final Diagnosis Attention patients [facility] The following pathology re sults have been interpreted by your pathologist and may be available to you before your health provider has had the opportunity to review them. Please allow time for your pro [facility] Y vider to receive these resul ts and explore management options, if applicable. SERVICES A. PLEURAL FLUID, CYTOLOGIC EVALUATION: - Negative for malignant cells. - Mixed inflammatory cells and reactive mesothelial ce lls present. Attestation There was significant reside nt/fellow involvement in the diagnostic evaluation of this case. [facility] Electronically signed By the signature below, the attending physician certifies that they have personally conducted a gross and/or microscopic [facility] by Cici Strong examination of the described specimens and rendered or confirmed the above diagnosis. SERVICES MD Jono on 10/03/2020 at 1242 Clinical History Pleural effusion [facility] Gross Description A. [facility] 50cc's of cloudy bel fluid were received and processed by selective cellular enhancement technique. [facility] Resident/Fellow: Laurence Tovar [facility] Olivo MD [facility] Performing Lab [facility] Scanned Images [facility] Specimen Fluid - Fluid, Pleural Fluid (Cytology: Best Practice is to submit 100 - 1000ml) Performing Organization Address City/State/ZIP Code Phon e Number [facility] [address] [place] [address] SERVICES documented in this encounter Visit Diagnoses Diagnosis Encounter for other general examination documented in this encounter Care Teams Juvenile [employer] Liaison Relationship Specialty Start Date End Date Paxton Segura MD PCP - General 02/21/[address] [place], [place] [id number] documented as of this encounter
--- OUTSIDE RECORDS SUMMARY | 2021-12-08 08:51 | XMS_ITS | Encounter Summary ---
:1945 Author Organization [facility] Address [address] [place] [address] Care Team Providers Name Role Phone Unknown, Provider Primary Care Provider Encounter Details Date Type Department Care Team Description 02/18/2018 Hospital Encounter [facility] [place] Unknown, Provider, [facility] [address] [place] [address] [place] [address] (Work) [phone] Social History Tobacco Use Types Packs/Day Years Used Date Never Assessed Sex Assigned at Date Recorded Not on file documented as of this encounter Discharge Disposition Disposition Code Departure Means Destination Home or Self Snf documented in this encounter Plan of Treatment Not on filedocumented as of this encounter Visit Diagnoses Not on filedocumented in this encounter Care Teams [employer] Special[employer] Relationship Specialty Start Date End Date Unknown, Provider, PCP - General 02/18/18 02/20/18 documented as of this encounter
--- OUTSIDE RECORDS SUMMARY | 2021-12-08 08:51 | XMS_ITS | Encounter Summary ---
:1945 Author Organization [facility] Address [address] [place] [address] Care Team Providers Name Role Phone Paxton Segura MD Primary Care Provider [phone] Encounter Details Date Type Department Care Team Description 09/22/2019 Lab Requisition [facility] Outr Resulting Lab, Pathology & Laboratory Provider [facility] [address] [place] [address] Social History Tobacco Use Types Packs/Day Years Used Date Never Assessed Sex Assigned at Date Recorded Not on file documented as of this encounter Plan of Treatment Not on filedocumented as of this encounter Procedures Procedure Name Priority Date/Time Associated Comments Diagnosis PSA TOTAL, Routine 09/22/2019 8:05 EDT Results for this DIAGNOSTIC procedure are i n the results section. documented in this encounter Results PSA TOTAL, DIAGNOSTIC (09/22/2019 8:05 EDT) Pathologist Sig nature PSA 3.3 0.0 - 6.5 ng/mL [facility] Specimen Blood - Venous blood (substance) Narrative [facility] - 09/25/2019 13:21 EDT NOTE: Serum PSA concentration should not be in terpreted as absolute evidence for the presence or absence of malignant disease. Assayed on Siemens ADVIA Centaur XPT usi ng chemiluminescent technology.??Values obtained by using different assay methods cannot be used interchangeably. Performing Organization Address City/State/ZIP Code Phon e Number [facility] [address] [place] [address] SERVICES documented in this encounter Visit Diagnoses Not on filedocumented in this encounter Care Teams Dinkey Driver Relationship Specialty Start Date End Date Paxton Segura MD PCP - General 02/21/18 [address] [place] [address] documented as of this encounter
== END 2021-12-08 08:41 | disposition home or self-care (01) ==
LOC: LBO 08:45
PROVIDERS: PCP Family Medicine; Visit Provider Internal Medicine Medical Oncology
DX: Z79.899 Other long term (current) drug therapy (principal); C34.32 Malignant neoplasm of lower lobe, left bronchus or lung
CPT/HCPCS: 36415; 80053; 83735; 84439; 84443; 85025

== ENCOUNTER 2021-12-29 11:37 | Outpatient (CLI) | payer MEDICARE, SELFPAY ==
[2021-12-29 10:13] LABS: Abs Immature Grans 0.07 10^3/uL (0.0-0.06); Absolute Basophil Count 0.08 10^3/uL (0.0-0.2); Absolute Eosinophil Count 0.33 10^3/uL (0.0-0.7); Absolute Lymphocyte Count 1.56 10^3/uL (1.2-3.4); Absolute Monocyte Count 0.79 10^3/uL (0.1-0.8); Basophils % 1.1; Eosinophils % 4.6; HCT 46.7 % (40.0-50.0); HGB 15.8 g/dL (13.5-17.5); Lymphocytes % 21.9; MCH 31.8 pg (27.0-33.0); MCHC 33.8 % (32.0-36.0); MCV 94 fL (80-95); MPV 10.3 fL (8.0-11.0); Monocytes % 11.1; Neutrophils % 60.3; Platelet Count 197 10^3/uL (130-400); RBC 4.97 10^6/uL (4.36-5.78); RDW 13.1 % (11.8-14.1); WBC 7.13 10^3/uL (4.4-10.8)
[2021-12-29 10:38] LABS: ALT 21 U/L (16-63); AST 14 U/L (15-37); Albumin 3.8 g/dL (3.4-5.0); Alkaline Phosphatase 36 U/L (46-116); Anion Gap 7.1 mmol/L (3-11); BUN 26 mg/dL (7-18); Bilirubin, Total 0.7 mg/dL (0.2-1.0); CO2 28.9 mmol/L (21.0-32.0); CREATININE 1.1 mg/dL (0.70-1.30); Calcium 9.4 mg/dL (8.5-10.1); Chloride 102 mmol/L (98-107); Estimated GFR 70.01 (mL/min/1.73m2); Glucose 217 mg/dL (74-106); Potassium 4.4 mmol/L (3.5-5.1); Sodium 138 mmol/L (136-145); TSH 3.79 uIU/mL (0.36-3.74); Total Protein 7.3 g/dL (6.4-8.2)
== END 2021-12-29 11:38 | disposition home or self-care (01) ==
LOC: LBO 11:41
PROVIDERS: PCP Family Medicine; Visit Provider Nurse Practitioner Adult Health
DX: C34.32 Malignant neoplasm of lower lobe, left bronchus or lung (principal); Z79.899 Other long term (current) drug therapy
CPT/HCPCS: 36415; 80053; 84439; 84443; 85025

== ENCOUNTER 2022-02-09 01:24 | Outpatient (CLI) | payer MEDICARE, SELFPAY ==
[2022-02-09 08:40] LABS: Abs Immature Grans 0.08 10^3/uL (0.0-0.06); Absolute Basophil Count 0.09 10^3/uL (0.0-0.2); Absolute Eosinophil Count 0.54 10^3/uL (0.0-0.7); Absolute Lymphocyte Count 1.37 10^3/uL (1.2-3.4); Absolute Neutrophil Count 8.06 10^3/uL (1.2-6.7); Basophils % 0.8; Eosinophils % 4.9; HCT 45.4 % (40.0-50.0); HGB 15.1 g/dL (13.5-17.5); Immature Grans % 0.7; Lymphocytes % 12.4; MCH 31.5 pg (27.0-33.0); MCHC 33.3 % (32.0-36.0); MCV 95 fL (80-95); MPV 10.1 fL (8.0-11.0); Monocytes % 8.2; Platelet Count 195 10^3/uL (130-400); RBC 4.79 10^6/uL (4.36-5.78); RDW-SD 45.8 fL; WBC 11.04 10^3/uL (4.4-10.8)
[2022-02-09 08:44] LABS: Absolute Monocyte Count 0.91 10^3/uL (0.1-0.8)
[2022-02-09 09:03] LABS: ALT 22 U/L (16-63); AST 13 U/L (15-37); Albumin 3.7 g/dL (3.4-5.0); Alkaline Phosphatase 53 U/L (46-116); Anion Gap 12.1 mmol/L (3-11); BUN 26 mg/dL (7-18); CO2 25.9 mmol/L (21.0-32.0); CREATININE 1.3 mg/dL (0.70-1.30); Chloride 97 mmol/L (98-107); Estimated GFR 57.29 (mL/min/1.73m2); FREE T4 1.11 ng/dL (0.76-1.46); Glucose 327 mg/dL (74-106); Potassium 3.7 mmol/L (3.5-5.1); Sodium 135 mmol/L (136-145); TSH 3.95 uIU/mL (0.36-3.74); Total Protein 7.3 g/dL (6.4-8.2)
--- NOTE | 2022-02-09 09:31 | DI.CT_ITS ---
Exam(s) CT CHEST W EXAM: CT CHEST W CLINICAL HISTORY: LLL LUNG CA,C34.32,ASSESS TREATMENT RESPONSE TECHNIQUE: Imaging Protocol: Axial computed tomography images with coronal and sagittal reformatted images were created and reviewed CONTRAST MATERIAL: Intravenous: Omnipaque 350 Contrast volume:structured data ml. COMPARISON: CT CT CHEST W from 06/02/2021 FINDINGS: Tracheobronchial tree: No bronchiectasis or mucous plugging. Mediastinum and Krissy: No dominant adenopathy or fluid collection. Pulmonary parenchyma: No consolidation. Mild interval decrease in size of smoothly marginated mass at medial left lung base, adjacent to the heart. Now measured at 2.2 by 2.9 by 1.9 cm. Scattered calc ified granulomas. Pleura: No effusion or pneumothorax. Mild pleural calcification at left lung apex. Heart: The heart is not dilated. coronary artery calcifications are seen. Aorta: Ascending aorta 4.0 cm. Mild atherosclerotic changes. Upper abdomen: Unremarkable. Lymph nodes: Within normal limits. Bones: Milddegenerative changes. Pectus excavatum deformity. Soft tissues: Unremarkable. IMPRESSION: Continued mild interval decrease in size of medial left lung base mass. No new abnormalities. RADIATION DOSE DELIVERED: Total DLP DATA REPOSITORY: All CT scans at this facility are submitted to the National Radiology Data Registry (NRDR) Dose Index Registry (DIR) with the [employer] (ACR). RADIATION OPTIMIZATION: All CT scans at this facility use at least one of these dose optimization te chniques: automated exposure control; mA and/or kV adjustment per patient size (includes targeted exa ms where dose is matched to clinical indication); or iterative reconstruction.
[2022-02-09] MEDS: Omnipaque 350 MG/ML 500 ML BTL-Imaging package 70 ML IJ (09:36)
[2022-02-09] MEDS: Normal Saline - Diluent 50 ML VIAL IJ (09:37)
== END 2022-02-09 01:44 ==
LOC: DI 01:24
PROVIDERS: PCP Family Medicine; Visit Provider Nurse Practitioner Adult Health
DX: C34.32 Malignant neoplasm of lower lobe, left bronchus or lung (principal)
CPT/HCPCS: 80053; 71260; 84439; 84443; 85025

== ENCOUNTER → 2022-02-18 15:30 | Outpatient (BNVA) | payer MEDICARE, SELFPAY | PROVIDERS: PCP Family Medicine; Referring Provider Family Medicine; Visit Provider Surgery | DX: Z86.010 Personal history of colon polyps (principal); Z12.11 Encounter for screening for malignant neoplasm of colon ==

== ENCOUNTER 2022-02-20 08:24 | Day surgery (SDC) | payer MEDICARE, SELFPAY ==
--- NOTE | 2022-02-19 14:43 | PDOC.DSDIS_ITS ---
Date of service: 02/20/22 Time of Service: 11:37 Discharge Plan Disposition Patient Disposition: HOME Condition: Good Discharge Details Reason For Visit: Colonoscopy Attending Provider: Ned Calvillo Primary Care Provider: Paxton Segura Home Meds and New Rx's Prescriptions: Continued (DME) FreeStyle Monroe 14 Day [place] Misc See Rx Instructions .ROUTE .MEDSUPPLY Qty: 1 0RF Rx Instructions: As directed insulin glargine [Lantus Solostar U-100 Insulin] 100 unit/mL (3 mL) insulin pen 20 unit Sub-Q HS Qty: 15 5RF Rx Instructions: E11.9 Jardiance 25 mg tablet 25 mg PO DAILY Qty: 90 3RF fluoxetine 20 mg tablet 40 mg PO DAILY Qty: 180 3RF Opdivo 240 mg/24 mL solution 240 mg IV Q3W (DME) pen needle, diabetic [BD Ultra-Fine Ankita Pen Needle] 32 gauge x 5/32 needle 1 ea Miscellaneous DAILY Qty: 400 4RF Rx Instructions: For use with pens QID Glucagon Emergency Kit (human) 1 mg recon soln 1 mg SC Q20M PRN (Reason: hypoglycemia) Qty: 1 5RF Rx Instructions: until target blood sugar attained (DME) blood sugar diagnostic Strip 1 strip Miscellaneous BID Qty: 300 4RF Rx Instructions: Dx: E11.9 test TID (DME) lancets [BD Ultra Fine Lancets] 33 gauge misc See Dose Instructions .ROUTE .MEDSUPPLY Qty: 300 3RF Dose Instruction: As directed Rx Instructions: As directed TID Shingrix Adjuvant Component-PF Suspension 0.5 ml IM DAILY Qty: 0.5 1RF Rx Instructions: given 2nd dose 2-6 months after first latanoprost [Xalatan] 2.5 ML drops 1 drp Ophthalmic DAILY Rx Instructions: BOTH EYES (DME) FreeStyle Monroe 14 Day Sensor Kit See Dose Instructions .ROUTE .MEDSUPPLY Qty: 2 11RF Dose Instruction: As directed Rx Instructions: As directed atorvastatin [Lipitor] 10 mg tablet 10 mg PO QPM Qty: 90 4RF Janumet 50-1,000 mg tablet 1 tab PO BID Qty: 180 3RF insulin lispro [Humalog KwikPen Insulin] 100 unit/mL insulin pen 1 - 5 unit SC TID Qty: 15 3RF valacyclovir [Valtrex] 500 mg tablet 500 mg PO BID PRN (Reason: herpes) Qty: 30 0RF losartan 50 mg tablet 50 mg PO DAILY Qty: 90 3RF (DME) blood-glucose meter [FreeStyle Lite Meter] Kit See Dose Instructions .ROUTE .MEDSUPPLY Qty: 1 0RF Dose Instruction: As directed Rx Instructions: As directed timolol 0.25 % Drops 1 drp OPHTHALMIC (EYE) DAILY prednisone 2.5 mg tablet 2.5 mg PO DAILY Rx Instructions: as directed. Alternate 7.5mg Q48H; 10mg Q48H Discontinued polyethylene glycol 3350 17 gram/dose powder 238 g PO ONCE Qty: 238 0RF Rx Instructions: take per colonoscopy instructions bisacodyl [Dulcolax (bisacodyl)] 5 mg tablet,delayed release (DR/EC) 5 mg PO ONCE Qty: 4 0RF Rx Instructions: take per colonoscopy instructions Discharge Instructions Instructions: Colorectal Polyps (DC) Additional Instructions: 1. If tolerated, consume a soft, low fiber diet for 1-2 days. 2[address] Do not drive, drink alcohol, operate machinery, make critical decisions, or do activities that require coordination or balance for 24 hours. 3. Because air was put into your colon during the procedure, expelling air from your rectum (passing gas or farting) is normal. 4. You may not have a bowel movement for 1-3 days because of the colonoscopy prep. This is normal. 5. Go directly to the emergency room if you notice any of the following: Develop chills (warm to touch), or if you have a thermometer and your temperature is above 101 Difficulty breathing or difficultly swallowing Persistent vomiting Severe abdominal pain, other than gas cramps Severe chest pain Black, tarry stools Any bleeding ? exceeding one tablespoon 6. Call your physician if the site where your intravenous was started becomes red, swollen, painful, and warm to touch. 7. Your physician has reviewed your pre-procedure medications. Please continue to take those medications as previously ordered. You will be given specific information/education regarding any changes to your medications before leaving. Activity:: Activity as Tolerated Diet:: As Tolerated DS: Diagnosis Discharge Diagnosis (1) Rectal polyp: Status: Acute Asessment and Plan: I will notify you when results of the pathology report come back from the biopsy
--- NOTE | 2022-02-19 14:45 | COLE_ITS ---
Date of service: 02/20/22 Time of Service: 11:40 Colonoscopy Report Date of procedure: 02/20/22 Pre-op diagnosis general: Routine health maintenance screening colonoscopy Post-op diagnosis procedure note: other (Rectal polyp) Procedure: Screening colonoscopy Surgeon: Ned Calvillo Complications: None Disposition: same day Indications: Walt is a 76-year-old male following up from his last colonoscopy with another screening test. Prep: Miralax/Dulcolax Procedure Start Time: 11:03 Procedure End Time: 11:24 Retraction Time: 14 Findings: Rectal polyp Procedure Description: After the induction of monitored anesthetic care, and with the patient in left lateral decubitus position, I began by performing an external anorectal exam.? Perineum and skin were normal, as was the anal verge.? There was no evidence of external hemorrhoids.? Next, I performed a digital rectal exam.? I did not appreciate any abnormal findings.? Next, I advanced a colonoscope into the rectal vault.? I performed retroflexion.? There were grade 1 internal hemorrhoids.? Using insufflation, I then advanced the colonoscope beyond the rectal folds and into the sigmoid colon before advancing towards the cecum. There was rare sigmoid diverticulosis the quality of the prep was adequate.? The scope was noted to be in the cecum by identification of the ileocecal valve and appendiceal orifice.? I then began withdrawing the colonoscope using repeated irrigation as necessary for full evaluation of the colonic mucosa. ?Once the scope was withdrawn to the level of the rectum, great care was taken to examine portions of the rectal folds. Around 25 cm from the anal verge I identified a 0.5 cm polyp. ?It appeared sessile in character. ?I was able to remove this with a cold forcep polypectomy. ?I examined the site, and there was minimal bleeding. ?Once this was completed, I continued to withdraw the scope and examine the rem ainder of the colonic mucosa.? Finally, the scope was withdrawn and the patient was brought to the same-day surgery recovery unit as the anesthetic wore off. ?The findings and instructions were shared with the patient prior to discharge.
[2022-02-20 09:05] VITALS: BP 116/77; PULSE 93; RESP 16; TEMP 36.2; O2SAT 98
[2022-02-20] MEDS: Lactated Ringers 1,000 ML 80 ML IV (09:21)
--- NOTE | 2022-02-20 09:59 | ANES.PREOP_ITS ---
General Info Date of Service Date Performed: 02/20/22 Height: 5 ft 8 in Weight: 59.5 kg Body Mass Index (BMI): 19.9 Surgical Procedure: Operation Date: 02/20/22 10:35 Proposed Procedure Side Surgeon remigio Calvillo MD Meds Allergies and Home Medications Allergies Allergy/AdvReac Type Severity Reaction Status Date / Time No Known Allergies Allergy Verified 02/18/22 15:36 Home Medication Medication Instructions Recorded latanoprost 0.005 % eye drops 1 drp ophthalmic (eye) DAILY 06/10/12 (Xalatan) pen needle, diabetic 32 gauge x #400 ea 03/02/18 (BD Ultra-Fine Ankita Pen Needle) glucagon (human recombinant) 1 mg 1 mg subcut Q20M PRN hypoglycemia 07/07/19 solution for injection (Glucagon #1 ea Emergency Kit) adjuvant AS01B (PF)vial 1 of 2 0.5 ml IM DAILY #0.5 mL 09/18/19 (Shingrix Adjuvant Component (PF) intramuscular suspension) blood sugar diagnostic #300 strips 09/18/19 lancets 33 gauge (BD Ultra Fine #300 ea 09/18/19 Lancets) flash glucose scanning reader #1 ea 01/10/20 (FreeStyle Monroe 14 Day [place]) timolol 0.25 % eye drops 1 drp ophthalmic (eye) DAILY 10/02/20 flash glucose sensor (FreeStyle #2 ea 06/27/21 Monroe 14 Day Sensor kit) atorvastatin 10 mg tablet (Lipitor) 10 mg PO QPM #90 tabs 07/07/21 sitagliptin phosphate 50 1 tab PO BID #180 tab-caps 07/07/21 mg-metformin 1,000 mg tablet (Janumet) insulin lispro 100 unit/mL 1 - 5 unit (0.01 - 0.05 mL) subcut 09/04/21 subcutaneous pen (Humalog KwikPen TID #15 mL (U-100) Insulin) fluoxetine 20 mg tablet 40 mg PO DAILY #180 tabs 10/29/21 empagliflozin 25 mg tablet 25 mg PO DAILY #90 tab-caps 11/26/21 (Jardiance) insulin glargine 100 unit/mL (3 20 unit (0.2 mL) subcut HS #15 mL 11/26/21 mL) subcutaneous pen (Lantus Solostar U-100 Insulin) valacyclovir 500 mg tablet 500 mg PO BID PRN herpes #30 01/05/22 (Valtrex) tab-caps losartan 50 mg tablet 50 mg PO DAILY #90 tab-caps 01/06/22 blood-glucose meter (FreeStyle #1 ea 01/12/22 Lite Meter kit) nivolumab 240 mg/24 mL intravenous 240 mg IV Q3W 02/18/22 solution (Opdivo) prednisone 2.5 mg tablet 2.5 mg PO DAILY 02/19/22 Current Visit Medications: Current Medications Generic Name Dose Route Start Last Admin Trade Name Freq PRN Reason Stop Dose Admin Hyoscyamine Sulfate 0.125 mg 02/19/22 14:46 Hyoscyamine 0.125 Mg Sl/Oral/Chew SL DIRECTED PRN Ringer's Solution 1,000 mls @ 80 mls/hr 02/20/22 06:00 02/20/22 09:21 IV 03/21/22 23:59 80 mls/hr INFUSION CELSO Administration IV Miscellaneous Supplies 1 each 02/20/22 06:00 Iv Access IV 03/21/22 23:59 DIRECTED CELSO Ondansetron HCl 4 mg 02/19/22 14:46 Ondansetron 4 Mg/2 Ml Vial IVP Q4H PRN PRN Nausea / Vomiting Sodium Chloride 0 ml 02/20/22 06:00 Normal Saline Flush 10 Ml Syr IV 03/21/22 23:59 PRN PRN Sodium Chloride 0 ml 02/20/22 06:00 Normal Saline 10 Ml Vial IJ 03/21/22 23:59 DIRECTED PRN Sterile Water 0 ml 02/20/22 06:00 Water,Injection,Sterile 10 Ml Vial IJ 03/21/22 23:59 DIRECTED PRN PFSH Active Problems Active Problems: Problem Status Onset Code Chronic sinusitis 11/22/13 J32.9 Depressive disorder F32.9 Diabetes mellitus 06/13/12 E11.9 Glaucoma H40.9 Herpes simplex B00.9 Hyperlipidemia E78.5 Irritable colon K58.9 Glaucoma, 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 Weight loss R63.4 Impacted cerumen of right ear H61.21 Encounter for screening colonoscopy Z12.11 Flatulence R14.3 Prostatism N40.0 Polyp of cecum D12.0 Sigmoid polyp D12.5 Tubular adenoma of colon 04/22/18 D12.6 Status post inguinal hernia repair Z98.890, Z87.19 Kidney stone N20.0 History of hemorrhoidectomy Z98.890 History of cataract removal with insertion of prosthetic lens Z98.49, Z96.1 Elevated PSA R97.20 Skin lesion L98.9 Upper back pain M54.9 Pleural effusion, left J90 Recurrent pleural effusion on left J90 Preoperative testing Z01.818 Pulmonary mass R91.8 Non-small cell lung cancer with metastasis C34.90 Skin lesion L98.9 Palliative care patient Z51.5 Anxiety disorder F41.9 Hyperglycemia R73.9 COVID-19 ~09/04/21 U07.1 Screening for colon cancer Z12.11 Medical History Medical History Abnormal colonoscopy (~04/22/18) Dr Benyn Dewey, [facility], tubular adenoma, repeat three years per Dr Reddy's recommendation.mg Pulmonary mass Surgical History Surgical History Extraction of cataract B/L Hemorrhoidectomy History of colonoscopy Repair of inguinal hernia RIGHT Tobacco Smoking/Tobacco Use Status: Never Passive smoking exposure: Yes Second hand exposure: Yes Alcohol Alcohol Intake: current Alcohol intake frequency: a few times a month Alcohol type: beer and wine Substance Use Substance use type: marijuana Details: last used 11/02/20 Vital Signs and Lab Results Vital Signs Most Recent Vital Signs in EMR: Most Recent Vital Signs Temp Pulse Resp BP Pulse Ox 36.2 C L 93 H 16 116/77 98 02/20/22 09:05 02/20/22 09:05 02/20/22 09:05 02/20/22 09:05 02/20/22 09:05 Lab Results Blood Type / Crossmatch: No Data to Display Complete Blood Count: White Blood Count 11.04 10^3/uL (4.4-10.8) H 02/09/22 08:30 Red Blood Count 4.79 10^6/uL (4.36-5.78) 02/09/22 08:30 Hemoglobin 15.1 g/dL (13.5-17.5) 02/09/22 08:30 Hematocrit 45.4 % (40.0-50.0) 02/09/22 08:30 Platelet Count 195 10^3/uL (130-400) 02/09/22 08:30 Complete Metabolic Panel: Sodium 135 mmol/L (136-145) L 02/09/22 08:30 Potassium 3.7 mmol/L (3.5-5.1) 02/09/22 08:30 Chloride 97 mmol/L (98-107) L 02/09/22 08:30 Carbon Dioxide 25.9 mmol/L (21.0-32.0) 02/09/22 08:30 BUN 26 mg/dL (7-18) H 02/09/22 08:30 Creatinine 1.3 mg/dL (0.70-1.30) 02/09/22 08:30 Est GFR (CKD-EPI 2020) 57.29 (mL/min/1.73m2) 02/09/22 08:30 Calcium 9.0 mg/dL (8.5-10.1) 02/09/22 08:30 Albumin 3.7 g/dL (3.4-5.0) 02/09/22 08:30 Glucose 327 mg/dL (74-106) H 02/09/22 08:30 Liver Function Panel: Alanine Aminotransferase (ALT/SGPT) 22 U/L (16-63) 02/09/22 08: 30 Aspartate Amino Transf (AST/SGOT) 13 U/L (15-37) L 02/09/22 08: 30 Coagulation Panel: No Data to Display Cardiac Panel: No Data to Display Arterial Blood Gas: No Data to Display Venous Blood Gas: No Data to Display Pancreas Panel: No Data to Display Thyroid Panel: Thyroid Stimulating Hormone (TSH) 3.95 uIU/mL (0.36-3.74) H 02/09/22 08:30 Infectious Disease: No Data to Display Blood Cultures: No Data to Display Toxicology Panel: No Data to Display Imaging and Studies Imaging and Studies Study information below may be from another EMR and interpreted by another provider. Please see original notes in EMR for more complete details. Other Study Summary:: 09/26/21: [facility] PET Scan: Continued improvement in left lower lobe mass, now 2.5x3.5cm down from 7cm. Anesthesia Assessment and Plan Anesthesia History Personal History: No History of Anesthesia Complications Family History: No Family History of Anesthesia Complications Exercise Tolerance Exercise Tolerance: Metabolic Equivalents>4 Pertinent Negatives Pertinent Negatives: No Symptoms of GERD Cardiac & Pulmonary Exam Cardiac Exam: Normal S1/S2 Heart Sounds Pulmonary Exam: Clear Bilateral Breath Sounds Implantable Cardiac Device Does patient have a Pacemaker or an ICD?: No Airway Exam Known Difficult Airway: No Mallampati Class: 1 Mouth Opening: Normal (> 3cm) Thyromental Distance: Greater than 3 cm Neck Range of Motion: Full ROM Neck Circumference: Normal Teeth Condition: Normal Dentition ASA Classification ASA Score: ASA 3 Emergency Case?: No NPO Status NPO Status: NPO Clears >2 hours, Solids >8 hours Anesthesia Plan Resuscitation Status: DNR Fully Suspended During Perioperative Period Anesthesia Technique: General Anesthesia Airway Planned: Natural Airway Monitors Used: Standard Monitors Preoperative Comments:: Pt. states he is active. Does state a recent study showed 2 vessel coronary disease, one vessel severe. I was unable to locate this. Discussed risk and pt. wished to proceed. He will followup on this with his PCP.
[2022-02-20 10:16] VITALS: BMI 19.9
--- NOTE | 2022-02-20 11:22 | BOWEL_PTH ---
PATIENT: Chandana Mcwilliams LOC: [facility] U#:[id number] AGE/SX: 76/M ROOM: RE02/20/[address]: Ned Calvillo MD : 1945 BED: DIS: 02/20/2022 SPEC #: [id number] RECD: 02/20/22 12:46 STATUS: GLADYS RE #: [id number] KYUNG: 02/20/22 11:[address]: Ned Calvillo DEPT: Surgical Specimen RECD BY: Stella Buenrostro ENTERED: 02/20/22 12:47 SP TYPE: Bowel OTHR DR: Paxton Segura MD Tissues: 1 - BIOPSY BOWEL Procedures: GROSS AND MICRO LEVEL 4 Comments: [id number]
[2022-02-20 11:30] VITALS: BP 95/50; PULSE 85; RESP 14; TEMP 36.1; O2SAT 97
[2022-02-20 12:00] VITALS: BP 116/67; PULSE 82; RESP 18; TEMP 36.4; O2SAT 99
--- NOTE | 2022-02-20 17:06 | W.ANESPOSTOP ---
Postoperative Evaluation Date, Time and Location Date Performed: 02/20/22 Time Performed: 17:06 Patient Location: Day Surgery Unit Vital Signs Most Recent Imported Vital Signs: Most Recent Vital Signs Temp Pulse Resp BP Pulse Ox 36.4 C L 82 18 116/67 99 02/20/22 12:00 02/20/22 12:00 02/20/22 12:00 02/20/22 12:00 02/20/22 12:00 Pain Score Most Recent Pain Score: Most Recent Pain Score Pain Level 0 02/20/22 12:00 Assessment Mental Status: Awake (Alert & Oriented to Patient Baseline) Airway and Respiratory Function: Patent airway with normal (patient baseline) respiratory exam Cardiovascular Function: Hemodynamically Stable Hydration Status: Adequately Hydrated Nausea & Vomiting: No Nausea or Vomiting Pain: Pt. Denies Any Pain Peripheral Nerve Block: Patient did not receive a nerve block
== END 2022-02-20 12:30 | disposition home or self-care (01) ==
PROVIDERS: PCP Family Medicine; Visit Provider Surgery
PROC: 0DJD8ZZ Inspection of Lower Intestinal Tract, Via Natural or Artificial Opening Endoscopic (ICD-10-PCS; CPT 45378; principal; 2022-02-20 10:30)
DX: Z12.11 Encounter for screening for malignant neoplasm of colon (principal); K62.1 Rectal polyp; E11.9 Type 2 diabetes mellitus without complications; Z79.4 Long term (current) use of insulin
CPT/HCPCS: 45380; 88305

== ENCOUNTER 2022-03-02 12:41 | Outpatient (CLI) | payer MEDICARE, SELFPAY ==
[2022-03-02 08:55] LABS: Abs Immature Grans 0.08 10^3/uL (0.0-0.06); Absolute Basophil Count 0.06 10^3/uL (0.0-0.2); Absolute Eosinophil Count 0.44 10^3/uL (0.0-0.7); Absolute Lymphocyte Count 1.11 10^3/uL (1.2-3.4); Absolute Monocyte Count 0.75 10^3/uL (0.1-0.8); Absolute Neutrophil Count 4.43 10^3/uL (1.2-6.7); Basophils % 0.9; Eosinophils % 6.4; HCT 44.4 % (40.0-50.0); HGB 14.6 g/dL (13.5-17.5); Immature Grans % 1.2; Lymphocytes % 16.2; MCH 31.2 pg (27.0-33.0); MCHC 32.9 % (32.0-36.0); MCV 95 fL (80-95); MPV 9.9 fL (8.0-11.0); Monocytes % 10.9; Neutrophils % 64.4; Platelet Count 206 10^3/uL (130-400); RBC 4.68 10^6/uL (4.36-5.78); RDW 13.2 % (11.8-14.1); RDW-SD 45.9 fL; WBC 6.87 10^3/uL (4.4-10.8)
[2022-03-02 09:19] LABS: ALT 20 U/L (16-63); AST 17 U/L (15-37); Albumin 3.4 g/dL (3.4-5.0); Alkaline Phosphatase 57 U/L (46-116); Anion Gap 5.2 mmol/L (3-11); BUN 24 mg/dL (7-18); Bilirubin, Total 0.5 mg/dL (0.2-1.0); CO2 31.8 mmol/L (21.0-32.0); CREATININE 1.2 mg/dL (0.70-1.30); Chloride 100 mmol/L (98-107); Estimated GFR 63.07 (mL/min/1.73m2); FREE T4 0.95 ng/dL (0.76-1.46); Glucose 281 mg/dL (74-106); Potassium 4.5 mmol/L (3.5-5.1); Sodium 137 mmol/L (136-145); TSH 4.64 uIU/mL (0.36-3.74); Total Protein 6.9 g/dL (6.4-8.2)
== END 2022-03-02 12:42 | disposition home or self-care (01) ==
LOC: LBO 12:41
PROVIDERS: PCP Family Medicine; Visit Provider Nurse Practitioner Adult Health
DX: C34.32 Malignant neoplasm of lower lobe, left bronchus or lung (principal); E11.9 Type 2 diabetes mellitus without complications; Z79.899 Other long term (current) drug therapy
CPT/HCPCS: 36415; 80053; 84439; 84443; 85025

== ENCOUNTER 2022-03-24 04:02 | Outpatient (CLI) | payer MEDICARE, SELFPAY ==
[2022-03-24 07:51] LABS: Abs Immature Grans 0.06 10^3/uL (0.0-0.06); Absolute Basophil Count 0.07 10^3/uL (0.0-0.2); Absolute Eosinophil Count 0.56 10^3/uL (0.0-0.7); Absolute Lymphocyte Count 1.29 10^3/uL (1.2-3.4); Absolute Monocyte Count 0.75 10^3/uL (0.1-0.8); Absolute Neutrophil Count 3.97 10^3/uL (1.2-6.7); Eosinophils % 8.4; HCT 46.5 % (40.0-50.0); HGB 15.3 g/dL (13.5-17.5); Immature Grans % 0.9; Lymphocytes % 19.3; MCH 30.9 pg (27.0-33.0); MCHC 32.9 % (32.0-36.0); MCV 94 fL (80-95); MPV 10.1 fL (8.0-11.0); Monocytes % 11.2; Neutrophils % 59.2; Platelet Count 181 10^3/uL (130-400); RBC 4.95 10^6/uL (4.36-5.78); RDW 12.6 % (11.8-14.1); RDW-SD 43.6 fL
[2022-03-24 08:22] LABS: ALT 27 U/L (16-63); AST 25 U/L (15-37); Albumin 3.7 g/dL (3.4-5.0); Alkaline Phosphatase 57 U/L (46-116); BUN 26 mg/dL (7-18); Bilirubin, Total 0.5 mg/dL (0.2-1.0); CREATININE 1.2 mg/dL (0.70-1.30); Calcium 8.8 mg/dL (8.5-10.1); Chloride 104 mmol/L (98-107); Estimated GFR 63.07 (mL/min/1.73m2); FREE T4 0.97 ng/dL (0.76-1.46); Glucose 228 mg/dL (74-106); Potassium 4.6 mmol/L (3.5-5.1); Sodium 138 mmol/L (136-145); TSH 5.45 uIU/mL (0.36-3.74); Total Protein 7.1 g/dL (6.4-8.2)
== END 2022-03-24 04:03 | disposition home or self-care (01) ==
PROVIDERS: PCP Family Medicine; Visit Provider Nurse Practitioner Adult Health
DX: C34.32 Malignant neoplasm of lower lobe, left bronchus or lung (principal)
CPT/HCPCS: 36415; 80053; 84439; 84443; 85025

== ENCOUNTER 2022-04-13 02:55 | Outpatient (CLI) | payer MEDICARE, SELFPAY ==
[2022-04-13 12:20] LABS: Abs Immature Grans 0.08 10^3/uL (0.0-0.06); Absolute Lymphocyte Count 1.48 10^3/uL (1.2-3.4); Absolute Monocyte Count 0.77 10^3/uL (0.1-0.8); Absolute Neutrophil Count 4.93 10^3/uL (1.2-6.7); Basophils % 1.3; Eosinophils % 5.2; HCT 47.4 % (40.0-50.0); HGB 15.5 g/dL (13.5-17.5); Lymphocytes % 19.1; MCH 30.7 pg (27.0-33.0); MCHC 32.7 % (32.0-36.0); MCV 94 fL (80-95); MPV 10.4 fL (8.0-11.0); Monocytes % 9.9; Neutrophils % 63.5; Platelet Count 221 10^3/uL (130-400); RBC 5.05 10^6/uL (4.36-5.78); RDW 12.7 % (11.8-14.1); RDW-SD 43.7 fL; WBC 7.76 10^3/uL (4.4-10.8)
[2022-04-13 12:42] LABS: ALT 12 U/L (16-63); AST 21 U/L (15-37); Albumin 3.9 g/dL (3.4-5.0); Alkaline Phosphatase 56 U/L (46-116); Anion Gap 13.3 mmol/L (3-11); BUN 36 mg/dL (7-18); Bilirubin, Total 0.6 mg/dL (0.2-1.0); CO2 18.7 mmol/L (21.0-32.0); CREATININE 1.4 mg/dL (0.70-1.30); Calcium 9.2 mg/dL (8.5-10.1); Chloride 105 mmol/L (98-107); Estimated GFR 52.41 (mL/min/1.73m2); FREE T4 0.97 ng/dL (0.76-1.46); Glucose 199 mg/dL (74-106); Sodium 137 mmol/L (136-145); TSH 4.34 uIU/mL (0.36-3.74); Total Protein 7.2 g/dL (6.4-8.2)
== END 2022-04-13 02:56 | disposition home or self-care (01) ==
PROVIDERS: PCP Family Medicine; Visit Provider Nurse Practitioner Adult Health
DX: C34.32 Malignant neoplasm of lower lobe, left bronchus or lung (principal); Z79.899 Other long term (current) drug therapy
CPT/HCPCS: 36415; 80053; 84439; 84443; 85025

== ENCOUNTER 2022-04-27 01:10 | Outpatient (CLI) | payer MEDICARE, SELFPAY ==
--- NOTE | 2022-04-27 14:20 | DI.CT_ITS ---
Exam(s) CT CHEST W EXAM: CT CHEST W CLINICAL HISTORY: F/U LUNG CA,C34.32,ON IMMUNOTHERPAY,RESTAGING EXAM TECHNIQUE: Imaging Protocol: Axial computed tomography images with coronal and sagittal reformatted images were created and reviewed CONTRAST MATERIAL: Intravenous: Omnipaque 350Contrast volume:70 mL. COMPARISON: CT CT CHEST W from 11/20/[address] CHEST W from 02/26/[address] CHEST W from 04/30/[address] CHEST W from 02/09/2022 FINDINGS: Tracheobronchial tree: Patent where visualized. Pulmonary parenchyma: There is mild pulmonary fibrosis. There is the lungs are hyperlucent suggestin g underlying COPD. The smoothly marginated mass in the left lower lobe is unchanged in size measurin g 2.9 x 2.2 cm. No focal consolidating infiltrates are present. No new pulmonary nodules or masses are seen. Mediastinum and Krissy: No dominant adenopathy or fluid collection. The esophagus is unremarkable. Thyroid gland: Unremarkable. Pleura: No large pleural effusion is seen. No pneumothorax is identified. Heart: The heart is not dilated. Coronary artery calcifications are present. No pericardial effusion . Aorta: The ascending thoracic aorta measures 4 x 4 cm. Atherosclerosis is present. Pulmonary arteries: The segmental and subsegmental arteries are not well opacified. No central pulmo nary embolus is identified. Upper abdomen: Unremarkable. Lymph nodes: Within normal limits. Bones: Within normal limits for the patient's age. Soft tissues: Unremarkable. IMPRESSION: Stable appearance of the chest. Stable left lung base mass. No acute pulmonary process. RADIATION DOSE DELIVERED: 424.65mGy.cm Total DLP DATA REPOSITORY: All CT scans at this facility are submitted to the National Radiology Data Registry (NRDR) Dose Index Registry (DIR) with the [employer] (ACR). RADIATION OPTIMIZATION: All CT scans at this facility use at least one of these dose optimization te chniques: automated exposure control; mA and/or kV adjustment per patient size (includes targeted exa ms where dose is matched to clinical indication); or iterative reconstruction.
[2022-04-27] MEDS: Normal Saline - Diluent 50 ML VIAL IJ (14:31)
[2022-04-27] MEDS: Normal Saline Flush 10 ML SYR IVP (14:34)
== END 2022-04-27 01:30 ==
LOC: DI 01:10
PROVIDERS: PCP Family Medicine; Visit Provider Internal Medicine Medical Oncology
DX: C34.32 Malignant neoplasm of lower lobe, left bronchus or lung (principal); J44.9 Chronic obstructive pulmonary disease, unspecified; Z79.899 Other long term (current) drug therapy
CPT/HCPCS: 71260

== ENCOUNTER 2022-05-04 01:00 | Outpatient (CLI) | payer MEDICARE, SELFPAY ==
[2022-05-04 08:00] LABS: Abs Immature Grans 0.09 10^3/uL (0.0-0.06); Absolute Basophil Count 0.09 10^3/uL (0.0-0.2); Absolute Eosinophil Count 0.62 10^3/uL (0.0-0.7); Absolute Lymphocyte Count 1.42 10^3/uL (1.2-3.4); Absolute Monocyte Count 0.86 10^3/uL (0.1-0.8); Absolute Neutrophil Count 4.43 10^3/uL (1.2-6.7); Basophils % 1.2; Eosinophils % 8.3; HCT 46.3 % (40.0-50.0); HGB 15.3 g/dL (13.5-17.5); Immature Grans % 1.2; Lymphocytes % 18.9; MCH 30.7 pg (27.0-33.0); MCV 93 fL (80-95); MPV 10.1 fL (8.0-11.0); Monocytes % 11.5; Neutrophils % 58.9; Platelet Count 206 10^3/uL (130-400); RBC 4.99 10^6/uL (4.36-5.78); RDW 13.1 % (11.8-14.1); RDW-SD 44.4 fL; WBC 7.51 10^3/uL (4.4-10.8)
[2022-05-04 08:27] LABS: ALT 27 U/L (16-63); AST 17 U/L (15-37); Albumin 3.8 g/dL (3.4-5.0); Alkaline Phosphatase 56 U/L (46-116); Anion Gap 8.9 mmol/L (3-11); Bilirubin, Total 0.4 mg/dL (0.2-1.0); CO2 24.1 mmol/L (21.0-32.0); CREATININE 1.3 mg/dL (0.70-1.30); Calcium 9.3 mg/dL (8.5-10.1); Chloride 104 mmol/L (98-107); Estimated GFR 57.29 (mL/min/1.73m2); FREE T4 0.78 ng/dL (0.76-1.46); Glucose 167 mg/dL (74-106); Potassium 4.4 mmol/L (3.5-5.1); Sodium 137 mmol/L (136-145); TSH 6.73 uIU/mL (0.36-3.74); Total Protein 7.1 g/dL (6.4-8.2)
[2022-05-04 08:29] LABS: BUN < 1 mg/dL (7-18)
== END 2022-05-04 01:01 | disposition home or self-care (01) ==
PROVIDERS: PCP Family Medicine; Visit Provider Nurse Practitioner Adult Health
DX: C34.32 Malignant neoplasm of lower lobe, left bronchus or lung (principal); Z79.899 Other long term (current) drug therapy
CPT/HCPCS: 36415; 80053; 84439; 84443; 85025

== ENCOUNTER → 2022-05-12 14:30 | Outpatient (BNVA) | payer MEDICARE, SELFPAY | PROVIDERS: PCP Family Medicine; Visit Provider Nurse Practitioner Gerontology | DX: R97.20 Elevated prostate specific antigen [PSA] (principal) | CPT/HCPCS: 51798; 99213 ==

== ENCOUNTER 2022-05-25 03:11 | Outpatient (CLI) | payer MEDICARE, SELFPAY ==
[2022-05-25 12:24] LABS: Abs Immature Grans 0.05 10^3/uL (0.0-0.06); Absolute Basophil Count 0.07 10^3/uL (0.0-0.2); Absolute Eosinophil Count 0.33 10^3/uL (0.0-0.7); Absolute Lymphocyte Count 1.17 10^3/uL (1.2-3.4); Absolute Monocyte Count 0.81 10^3/uL (0.1-0.8); Absolute Neutrophil Count 4.65 10^3/uL (1.2-6.7); Eosinophils % 4.7; HCT 46.2 % (40.0-50.0); HGB 15.3 g/dL (13.5-17.5); Immature Grans % 0.7; Lymphocytes % 16.5; MCH 30.6 pg (27.0-33.0); MCHC 33.1 % (32.0-36.0); MCV 92 fL (80-95); MPV 10.5 fL (8.0-11.0); Monocytes % 11.4; Neutrophils % 65.7; Platelet Count 186 10^3/uL (130-400); RDW 13.1 % (11.8-14.1); RDW-SD 44.1 fL; WBC 7.08 10^3/uL (4.4-10.8)
[2022-05-25 13:01] LABS: ALT 15 U/L (16-63); AST 11 U/L (15-37); Albumin 3.7 g/dL (3.4-5.0); Alkaline Phosphatase 50 U/L (46-116); Anion Gap 7.9 mmol/L (3-11); BUN 27 mg/dL (7-18); Bilirubin, Total 0.6 mg/dL (0.2-1.0); CO2 27.1 mmol/L (21.0-32.0); CREATININE 1.2 mg/dL (0.70-1.30); Calcium 9.3 mg/dL (8.5-10.1); Chloride 105 mmol/L (98-107); Estimated GFR 63.07 (mL/min/1.73m2); FREE T4 1.02 ng/dL (0.76-1.46); Glucose 220 mg/dL (74-106); Potassium 4.4 mmol/L (3.5-5.1); Sodium 140 mmol/L (136-145)
== END 2022-05-25 03:12 | disposition home or self-care (01) ==
PROVIDERS: PCP Family Medicine; Visit Provider Nurse Practitioner Adult Health
DX: C34.32 Malignant neoplasm of lower lobe, left bronchus or lung (principal); Z79.899 Other long term (current) drug therapy
CPT/HCPCS: 36415; 80053; 84439; 84443; 85025

== ENCOUNTER 2022-05-27 17:22 | Outpatient (REF) | payer MEDICARE, SELFPAY ==
[2022-05-27 13:36] LABS: Microalb ug/mg Crea 8.7 ug/mg Cr
== END 2022-05-27 17:23 | disposition home or self-care (01) ==
LOC: LBN 17:22
PROVIDERS: PCP Family Medicine; Visit Provider Family Medicine
DX: E11.9 Type 2 diabetes mellitus without complications (principal)
CPT/HCPCS: 82043; 82570

== ENCOUNTER 2022-06-15 02:30 | Outpatient (CLI) | payer MEDICARE, SELFPAY ==
[2022-06-15 12:34] LABS: Abs Immature Grans 0.06 10^3/uL (0.0-0.06); Absolute Basophil Count 0.07 10^3/uL (0.0-0.2); Absolute Eosinophil Count 0.26 10^3/uL (0.0-0.7); Absolute Lymphocyte Count 1.18 10^3/uL (1.2-3.4); Absolute Monocyte Count 0.73 10^3/uL (0.1-0.8); Absolute Neutrophil Count 4.25 10^3/uL (1.2-6.7); Basophils % 1.1; HCT 46.4 % (40.0-50.0); HGB 15.6 g/dL (13.5-17.5); Immature Grans % 0.9; MCH 30.3 pg (27.0-33.0); MCHC 33.6 % (32.0-36.0); MCV 90 fL (80-95); MPV 10.1 fL (8.0-11.0); Monocytes % 11.1; Neutrophils % 64.9; Platelet Count 177 10^3/uL (130-400); RBC 5.15 10^6/uL (4.36-5.78); RDW 12.9 % (11.8-14.1); RDW-SD 42.5 fL; WBC 6.55 10^3/uL (4.4-10.8)
[2022-06-15 13:01] LABS: ALT 16 U/L (16-63); AST 10 U/L (15-37); Albumin 3.9 g/dL (3.4-5.0); Alkaline Phosphatase 48 U/L (46-116); Anion Gap 7.6 mmol/L (3-11); BUN 33 mg/dL (7-18); Bilirubin, Total 0.6 mg/dL (0.2-1.0); CO2 27.4 mmol/L (21.0-32.0); CREATININE 1.2 mg/dL (0.70-1.30); Calcium 9.4 mg/dL (8.5-10.1); Chloride 101 mmol/L (98-107); Estimated GFR 63.07 (mL/min/1.73m2); FREE T4 1.15 ng/dL (0.76-1.46); Glucose 342 mg/dL (74-106); Potassium 4.8 mmol/L (3.5-5.1); Sodium 136 mmol/L (136-145); TSH 2.29 uIU/mL (0.36-3.74); Total Protein 7.3 g/dL (6.4-8.2)
== END 2022-06-15 02:31 | disposition home or self-care (01) ==
PROVIDERS: PCP Family Medicine; Visit Provider Nurse Practitioner Adult Health
DX: C34.32 Malignant neoplasm of lower lobe, left bronchus or lung (principal); Z79.899 Other long term (current) drug therapy
CPT/HCPCS: 36415; 80053; 84439; 84443; 85025

== ENCOUNTER 2022-07-02 00:45 | Outpatient (CLI) | payer MEDICARE, SELFPAY ==
--- NOTE | 2022-07-02 | DI.CT_ITS ---
Exam(s) CT CHEST W EXAM: CT CHEST W CLINICAL HISTORY: MET LUNG CA, RESTAGING, C34.32 TECHNIQUE: Imaging Protocol: Axial computed tomography images with coronal and sagittal reformatted images were created and reviewed CONTRAST MATERIAL: Intravenous: Omnipaque 350 Contrast volume:100 ml. COMPARISON: CT CT CHEST W from 04/27/2022 FINDINGS: Pulmonary parenchyma: Fibrotic changes. No consolidation. stable size the mass at the left lung bas e, adjacent to the heart, measuring 2.2 x 2.9 cm. No new masses. Tracheobronchial tree: No bronchiectasis or mucous plugging. Mediastinum and Krissy: No dominant adenopathy or fluid collection. Pleura: No effusion or pneumothorax. Heart: The heart is not dilated. Moderate to severe coronary artery calcifications are seen. Aorta: Ascending aorta stable at 4 cm. Upper abdomen: Large quantity of stool noted. Bones: Degenerative changes. Soft tissues: Unremarkable. IMPRESSION: Stable size of mass at the left lung base. No new findings. RADIATION DOSE DELIVERED: 496.12mGy.cm Total DLP DATA REPOSITORY: All CT scans at this facility are submitted to the National Radiology Data Registry (NRDR) Dose Index Registry (DIR) with the [employer] (ACR). RADIATION OPTIMIZATION: All CT scans at this facility use at least one of these dose optimization te chniques: automated exposure control; mA and/or kV adjustment per patient size (includes targeted exa ms where dose is matched to clinical indication); or iterative reconstruction.
[2022-07-02] MEDS: Normal Saline - Diluent 50 ML VIAL IJ (08:52)
[2022-07-02] MEDS: Omnipaque 350 MG/ML 500 ML BTL-Imaging package IJ (08:54)
== END 2022-07-02 01:05 ==
LOC: DI 00:45
PROVIDERS: PCP Family Medicine; Visit Provider Internal Medicine Medical Oncology
DX: C34.32 Malignant neoplasm of lower lobe, left bronchus or lung (principal); Z92.21 Personal history of antineoplastic chemotherapy
CPT/HCPCS: 71260

== ENCOUNTER 2022-07-06 02:25 | Outpatient (CLI) | payer MEDICARE, SELFPAY ==
[2022-07-06 12:17] LABS: Abs Immature Grans 0.05 10^3/uL (0.0-0.06); Absolute Basophil Count 0.05 10^3/uL (0.0-0.2); Absolute Eosinophil Count 0.28 10^3/uL (0.0-0.7); Absolute Neutrophil Count 3.59 10^3/uL (1.2-6.7); Basophils % 0.9; HCT 43.8 % (40.0-50.0); HGB 14.9 g/dL (13.5-17.5); Immature Grans % 0.9; MCV 91 fL (80-95); MPV 9.9 fL (8.0-11.0); Monocytes % 10.8; Neutrophils % 64.4; Platelet Count 170 10^3/uL (130-400); RBC 4.81 10^6/uL (4.36-5.78); RDW 13.1 % (11.8-14.1); WBC 5.57 10^3/uL (4.4-10.8)
[2022-07-06 12:50] LABS: ALT 18 U/L (16-63); AST 12 U/L (15-37); Albumin 3.6 g/dL (3.4-5.0); Alkaline Phosphatase 49 U/L (46-116); Anion Gap 5.5 mmol/L (3-11); BUN 32 mg/dL (7-18); Bilirubin, Total 0.5 mg/dL (0.2-1.0); CO2 28.5 mmol/L (21.0-32.0); CREATININE 1.4 mg/dL (0.70-1.30); Chloride 103 mmol/L (98-107); Estimated GFR 52.41 (mL/min/1.73m2); FREE T4 1.05 ng/dL (0.76-1.46); Glucose 321 mg/dL (74-106); Sodium 137 mmol/L (136-145); TSH 3.38 uIU/mL (0.36-3.74); Total Protein 6.9 g/dL (6.4-8.2)
== END 2022-07-06 02:26 | disposition home or self-care (01) ==
PROVIDERS: PCP Family Medicine; Visit Provider Nurse Practitioner Adult Health
DX: C34.32 Malignant neoplasm of lower lobe, left bronchus or lung (principal)
CPT/HCPCS: 36415; 80053; 84439; 84443; 85025

== ENCOUNTER 2022-07-27 03:10 | Outpatient (CLI) | payer MEDICARE, SELFPAY ==
[2022-07-27 13:25] LABS: Abs Immature Grans 0.06 10^3/uL (0.0-0.06); Absolute Basophil Count 0.06 10^3/uL (0.0-0.2); Absolute Eosinophil Count 0.37 10^3/uL (0.0-0.7); Absolute Lymphocyte Count 1.18 10^3/uL (1.2-3.4); Absolute Monocyte Count 0.76 10^3/uL (0.1-0.8); Absolute Neutrophil Count 3.82 10^3/uL (1.2-6.7); Eosinophils % 5.9; HGB 15.3 g/dL (13.5-17.5); Lymphocytes % 18.9; MCH 30.6 pg (27.0-33.0); MCHC 33.3 % (32.0-36.0); MCV 92 fL (80-95); MPV 10.8 fL (8.0-11.0); Monocytes % 12.2; Platelet Count 181 10^3/uL (130-400); RDW 13.3 % (11.8-14.1); RDW-SD 44.6 fL; WBC 6.25 10^3/uL (4.4-10.8)
[2022-07-27 13:52] LABS: ALT 32 U/L (16-63); AST 21 U/L (15-37); Albumin 3.9 g/dL (3.4-5.0); Alkaline Phosphatase 56 U/L (46-116); Anion Gap 7.5 mmol/L (3-11); BUN 29 mg/dL (7-18); Bilirubin, Total 0.5 mg/dL (0.2-1.0); CO2 29.5 mmol/L (21.0-32.0); CREATININE 1.2 mg/dL (0.70-1.30); Calcium 9.6 mg/dL (8.5-10.1); Chloride 102 mmol/L (98-107); Estimated GFR 63.07 (mL/min/1.73m2); FREE T4 1.11 ng/dL (0.76-1.46); Glucose 311 mg/dL (74-106); Potassium 4.7 mmol/L (3.5-5.1); Sodium 139 mmol/L (136-145); TSH 2.79 uIU/mL (0.36-3.74); Total Protein 7.4 g/dL (6.4-8.2)
== END 2022-07-27 03:11 | disposition home or self-care (01) ==
PROVIDERS: PCP Family Medicine; Visit Provider Nurse Practitioner Adult Health
DX: C34.32 Malignant neoplasm of lower lobe, left bronchus or lung (principal); Z79.899 Other long term (current) drug therapy
CPT/HCPCS: 36415; 80053; 84439; 84443; 85025

== ENCOUNTER 2022-08-24 03:26 | Outpatient (CLI) | payer MEDICARE, SELFPAY ==
[2022-08-24 12:23] LABS: Abs Immature Grans 0.05 10^3/uL (0.0-0.06); Absolute Basophil Count 0.08 10^3/uL (0.0-0.2); Absolute Eosinophil Count 0.34 10^3/uL (0.0-0.7); Absolute Lymphocyte Count 1.29 10^3/uL (1.2-3.4); Absolute Monocyte Count 0.65 10^3/uL (0.1-0.8); Absolute Neutrophil Count 3.36 10^3/uL (1.2-6.7); Basophils % 1.4; Eosinophils % 5.9; HCT 47.1 % (40.0-50.0); HGB 15.7 g/dL (13.5-17.5); Immature Grans % 0.9; Lymphocytes % 22.4; MCH 31.2 pg (27.0-33.0); MCHC 33.3 % (32.0-36.0); MCV 94 fL (80-95); MPV 10.7 fL (8.0-11.0); Monocytes % 11.3; Neutrophils % 58.1; Platelet Count 175 10^3/uL (130-400); RBC 5.04 10^6/uL (4.36-5.78); RDW 13.3 % (11.8-14.1); RDW-SD 45.4 fL; WBC 5.77 10^3/uL (4.4-10.8)
[2022-08-24 12:46] LABS: ALT 41 U/L (16-63); AST 21 U/L (15-37); Albumin 3.7 g/dL (3.4-5.0); Alkaline Phosphatase 51 U/L (46-116); Anion Gap 3.1 mmol/L (3-11); BUN 23 mg/dL (7-18); Bilirubin, Total 0.5 mg/dL (0.2-1.0); CO2 29.9 mmol/L (21.0-32.0); CREATININE 1.2 mg/dL (0.70-1.30); Calcium 9.2 mg/dL (8.5-10.1); Chloride 103 mmol/L (98-107); Estimated GFR 62.67 (mL/min/1.73m2); FREE T4 1.07 ng/dL (0.76-1.46); Glucose 228 mg/dL (74-106); Potassium 4.5 mmol/L (3.5-5.1); Sodium 136 mmol/L (136-145); TSH 3.16 uIU/mL (0.36-3.74); Total Protein 7.1 g/dL (6.4-8.2)
== END 2022-08-24 03:27 | disposition home or self-care (01) ==
PROVIDERS: Internal Medicine Medical Oncology; PCP Family Medicine; Visit Provider Nurse Practitioner Adult Health
DX: C34.32 Malignant neoplasm of lower lobe, left bronchus or lung (principal); Z79.899 Other long term (current) drug therapy
CPT/HCPCS: 36415; 80053; 84439; 84443; 85025

== ENCOUNTER 2022-09-17 04:07 | Outpatient (CLI) | payer MEDICARE, SELFPAY ==
[2022-09-17 07:45] LABS: Abs Immature Grans 0.06 10^3/uL (0.0-0.06); Absolute Basophil Count 0.07 10^3/uL (0.0-0.2); Absolute Eosinophil Count 0.41 10^3/uL (0.0-0.7); Absolute Lymphocyte Count 1.34 10^3/uL (1.2-3.4); Absolute Monocyte Count 0.69 10^3/uL (0.1-0.8); Absolute Neutrophil Count 4.17 10^3/uL (1.2-6.7); Eosinophils % 6.1; HCT 44.6 % (40.0-50.0); HGB 14.9 g/dL (13.5-17.5); Immature Grans % 0.9; Lymphocytes % 19.9; MCH 30.9 pg (27.0-33.0); MCHC 33.4 % (32.0-36.0); MCV 93 fL (80-95); MPV 10.5 fL (8.0-11.0); Monocytes % 10.2; Neutrophils % 61.9; Platelet Count 168 10^3/uL (130-400); RBC 4.82 10^6/uL (4.36-5.78); RDW 13.1 % (11.8-14.1); RDW-SD 45.1 fL; WBC 6.74 10^3/uL (4.4-10.8)
[2022-09-17 08:09] LABS: ALT 34 U/L (16-63); AST 17 U/L (15-37); Albumin 3.4 g/dL (3.4-5.0); Alkaline Phosphatase 54 U/L (46-116); Anion Gap 4.6 mmol/L (3-11); BUN 25 mg/dL (7-18); Bilirubin, Total 0.5 mg/dL (0.2-1.0); CO2 32.4 mmol/L (21.0-32.0); Calcium 8.7 mg/dL (8.5-10.1); Chloride 100 mmol/L (98-107); FREE T4 0.94 ng/dL (0.76-1.46); Glucose 225 mg/dL (74-106); Potassium 4.6 mmol/L (3.5-5.1); Sodium 137 mmol/L (136-145); TSH 3.98 uIU/mL (0.36-3.74); Total Protein 6.8 g/dL (6.4-8.2)
== END 2022-09-17 04:08 | disposition home or self-care (01) ==
PROVIDERS: PCP Family Medicine; Visit Provider Nurse Practitioner Adult Health
DX: C34.32 Malignant neoplasm of lower lobe, left bronchus or lung (principal)
CPT/HCPCS: 36415; 80053; 84439; 84443; 85025

== ENCOUNTER 2022-10-05 04:10 | Outpatient (CLI) | payer MEDICARE, SELFPAY ==
[2022-10-05 13:48] LABS: Abs Immature Grans 0.07 10^3/uL (0.0-0.06); Absolute Basophil Count 0.08 10^3/uL (0.0-0.2); Absolute Eosinophil Count 0.26 10^3/uL (0.0-0.7); Absolute Lymphocyte Count 1.36 10^3/uL (1.2-3.4); Absolute Monocyte Count 0.82 10^3/uL (0.1-0.8); Absolute Neutrophil Count 5.41 10^3/uL (1.2-6.7); Eosinophils % 3.3; HCT 44.6 % (40.0-50.0); Immature Grans % 0.9; MCH 30.9 pg (27.0-33.0); MCHC 33.6 % (32.0-36.0); MCV 92 fL (80-95); MPV 10.7 fL (8.0-11.0); Monocytes % 10.3; Neutrophils % 67.5; Platelet Count 199 10^3/uL (130-400); RBC 4.86 10^6/uL (4.36-5.78)
[2022-10-05 14:15] LABS: ALT 26 U/L (16-63); AST 15 U/L (15-37); Albumin 3.6 g/dL (3.4-5.0); Alkaline Phosphatase 50 U/L (46-116); Anion Gap 4.4 mmol/L (3-11); BUN 28 mg/dL (7-18); Bilirubin, Total 0.4 mg/dL (0.2-1.0); CO2 30.6 mmol/L (21.0-32.0); CREATININE 1.3 mg/dL (0.70-1.30); Calcium 9.1 mg/dL (8.5-10.1); Chloride 103 mmol/L (98-107); Estimated GFR 56.93 (mL/min/1.73m2); FREE T4 1.01 ng/dL (0.76-1.46); Glucose 220 mg/dL (74-106); Potassium 4.9 mmol/L (3.5-5.1); Sodium 138 mmol/L (136-145); TSH 2.29 uIU/mL (0.36-3.74); Total Protein 6.9 g/dL (6.4-8.2)
== END 2022-10-05 04:11 | disposition home or self-care (01) ==
PROVIDERS: PCP Family Medicine; Visit Provider Nurse Practitioner Adult Health
DX: C34.32 Malignant neoplasm of lower lobe, left bronchus or lung (principal)
CPT/HCPCS: 36415; 80053; 84439; 84443; 85025

== ENCOUNTER 2022-10-28 09:56 | Outpatient (CLI) | payer MEDICARE, SELFPAY ==
[2022-10-28 09:18] LABS: Abs Immature Grans 0.08 10^3/uL (0.0-0.06); Absolute Basophil Count 0.07 10^3/uL (0.0-0.2); Absolute Eosinophil Count 0.25 10^3/uL (0.0-0.7); Absolute Lymphocyte Count 1.23 10^3/uL (1.2-3.4); Absolute Monocyte Count 0.86 10^3/uL (0.1-0.8); Absolute Neutrophil Count 7.22 10^3/uL (1.2-6.7); Basophils % 0.7; Eosinophils % 2.6; HCT 45.5 % (40.0-50.0); HGB 15.2 g/dL (13.5-17.5); Immature Grans % 0.8; Lymphocytes % 12.7; MCH 30.3 pg (27.0-33.0); MCHC 33.4 % (32.0-36.0); MCV 91 fL (80-95); MPV 10.2 fL (8.0-11.0); Monocytes % 8.9; Neutrophils % 74.3; Platelet Count 208 10^3/uL (130-400); RBC 5.02 10^6/uL (4.36-5.78); RDW 12.4 % (11.8-14.1); RDW-SD 41.2 fL; WBC 9.71 10^3/uL (4.4-10.8)
[2022-10-28 09:41] LABS: ALT 14 U/L (16-63); AST 13 U/L (15-37); Albumin 3.5 g/dL (3.4-5.0); Alkaline Phosphatase 65 U/L (46-116); Anion Gap 6.3 mmol/L (3-11); BUN 35 mg/dL (7-18); Bilirubin, Total 0.5 mg/dL (0.2-1.0); CO2 29.7 mmol/L (21.0-32.0); CREATININE 1.2 mg/dL (0.70-1.30); Calcium 9.4 mg/dL (8.5-10.1); Chloride 100 mmol/L (98-107); Estimated GFR 62.67 (mL/min/1.73m2); FREE T4 1.23 ng/dL (0.76-1.46); Glucose 384 mg/dL (74-106); Sodium 136 mmol/L (136-145); TSH 2.68 uIU/mL (0.36-3.74); Total Protein 7.1 g/dL (6.4-8.2)
[2022-10-28 09:49] LABS: Potassium 6.1 mmol/L (3.5-5.1)
== END 2022-10-28 09:57 | disposition home or self-care (01) ==
LOC: LBO 09:56
PROVIDERS: Referring Provider Nurse Practitioner Adult Health; Visit Provider Nurse Practitioner Adult Health
DX: C34.32 Malignant neoplasm of lower lobe, left bronchus or lung (principal)
CPT/HCPCS: 36415; 80053; 84439; 84443; 85025

== ENCOUNTER 2022-10-29 10:42 | Outpatient (CLI) | payer MEDICARE, SELFPAY ==
[2022-10-29 10:38] LABS: Abs Immature Grans 0.06 10^3/uL (0.0-0.06); Absolute Basophil Count 0.05 10^3/uL (0.0-0.2); Absolute Eosinophil Count 0.17 10^3/uL (0.0-0.7); Absolute Lymphocyte Count 1.05 10^3/uL (1.2-3.4); Absolute Monocyte Count 0.83 10^3/uL (0.1-0.8); Absolute Neutrophil Count 6.75 10^3/uL (1.2-6.7); Basophils % 0.6; Eosinophils % 1.9; HGB 15.2 g/dL (13.5-17.5); Immature Grans % 0.7; Lymphocytes % 11.8; MCH 30.6 pg (27.0-33.0); MCHC 33.8 % (32.0-36.0); MCV 91 fL (80-95); MPV 9.8 fL (8.0-11.0); Monocytes % 9.3; Neutrophils % 75.7; Platelet Count 204 10^3/uL (130-400); RBC 4.97 10^6/uL (4.36-5.78); RDW 12.5 % (11.8-14.1); WBC 8.91 10^3/uL (4.4-10.8)
[2022-10-29 11:11] LABS: ALT 14 U/L (16-63); AST 10 U/L (15-37); Albumin 3.4 g/dL (3.4-5.0); Alkaline Phosphatase 68 U/L (46-116); Anion Gap 8.8 mmol/L (3-11); BUN 31 mg/dL (7-18); Bilirubin, Total 0.6 mg/dL (0.2-1.0); CO2 28.2 mmol/L (21.0-32.0); CREATININE 1.1 mg/dL (0.70-1.30); Calcium 9.3 mg/dL (8.5-10.1); Chloride 100 mmol/L (98-107); Estimated GFR 69.57 (mL/min/1.73m2); FREE T4 1.19 ng/dL (0.76-1.46); Glucose 259 mg/dL (74-106); Potassium 4.5 mmol/L (3.5-5.1); Sodium 137 mmol/L (136-145); TSH 2.62 uIU/mL (0.36-3.74); Total Protein 7.3 g/dL (6.4-8.2)
== END 2022-10-29 10:43 | disposition home or self-care (01) ==
LOC: LBO 10:42
PROVIDERS: PCP Family Medicine; Visit Provider Nurse Practitioner Adult Health
DX: C34.32 Malignant neoplasm of lower lobe, left bronchus or lung (principal); Z79.899 Other long term (current) drug therapy
CPT/HCPCS: 36415; 80053; 84439; 84443; 85025

== ENCOUNTER 2022-11-16 13:38 | Outpatient (CLI) | payer MEDICARE, SELFPAY ==
[2022-11-16 13:17] LABS: Abs Immature Grans 0.06 10^3/uL (0.0-0.06); Absolute Basophil Count 0.05 10^3/uL (0.0-0.2); Absolute Eosinophil Count 0.27 10^3/uL (0.0-0.7); Absolute Lymphocyte Count 1.22 10^3/uL (1.2-3.4); Absolute Monocyte Count 0.76 10^3/uL (0.1-0.8); Absolute Neutrophil Count 4.25 10^3/uL (1.2-6.7); Basophils % 0.8; Eosinophils % 4.1; HGB 14.8 g/dL (13.5-17.5); Immature Grans % 0.9; Lymphocytes % 18.5; MCH 30.6 pg (27.0-33.0); MCHC 33.6 % (32.0-36.0); MCV 91 fL (80-95); MPV 10.1 fL (8.0-11.0); Monocytes % 11.5; Neutrophils % 64.2; Platelet Count 215 10^3/uL (130-400); RBC 4.83 10^6/uL (4.36-5.78); RDW 12.8 % (11.8-14.1); RDW-SD 41.7 fL; WBC 6.61 10^3/uL (4.4-10.8)
[2022-11-16 13:42] LABS: ALT 16 U/L (16-63); AST 10 U/L (15-37); Albumin 3.5 g/dL (3.4-5.0); Alkaline Phosphatase 63 U/L (46-116); Anion Gap 6.4 mmol/L (3-11); BUN 29 mg/dL (7-18); Bilirubin, Total 0.4 mg/dL (0.2-1.0); CO2 29.6 mmol/L (21.0-32.0); CREATININE 1.2 mg/dL (0.70-1.30); Calcium 9.2 mg/dL (8.5-10.1); Chloride 103 mmol/L (98-107); Estimated GFR 62.67 (mL/min/1.73m2); FREE T4 0.99 ng/dL (0.76-1.46); Glucose 180 mg/dL (74-106); Potassium 4.3 mmol/L (3.5-5.1); Sodium 139 mmol/L (136-145); TSH 2.72 uIU/mL (0.36-3.74); Total Protein 6.9 g/dL (6.4-8.2)
== END 2022-11-16 13:39 | disposition home or self-care (01) ==
LOC: LBO 13:39
PROVIDERS: PCP Family Medicine; Visit Provider Nurse Practitioner Adult Health
DX: C34.32 Malignant neoplasm of lower lobe, left bronchus or lung (principal)
CPT/HCPCS: 36415; 80053; 84439; 84443; 85025

== ENCOUNTER 2022-12-07 04:39 | Outpatient (CLI) | payer MEDICARE, SELFPAY ==
[2022-12-07 12:30] LABS: Abs Immature Grans 0.06 10^3/uL (0.0-0.06); Absolute Basophil Count 0.06 10^3/uL (0.0-0.2); Absolute Eosinophil Count 0.22 10^3/uL (0.0-0.7); Absolute Lymphocyte Count 1.05 10^3/uL (1.2-3.4); Absolute Neutrophil Count 3.55 10^3/uL (1.2-6.7); Basophils % 1.1; HCT 43.3 % (40.0-50.0); HGB 14.7 g/dL (13.5-17.5); Immature Grans % 1.1; MCH 30.9 pg (27.0-33.0); MCHC 33.9 % (32.0-36.0); MCV 91 fL (80-95); MPV 10.2 fL (8.0-11.0); Monocytes % 10.8; Platelet Count 182 10^3/uL (130-400); RBC 4.75 10^6/uL (4.36-5.78); RDW 12.9 % (11.8-14.1); RDW-SD 43.7 fL; WBC 5.54 10^3/uL (4.4-10.8)
[2022-12-07 13:09] LABS: ALT 21 U/L (16-63); AST 15 U/L (15-37); Albumin 3.5 g/dL (3.4-5.0); Alkaline Phosphatase 59 U/L (46-116); BUN 30 mg/dL (7-18); Bilirubin, Total 0.6 mg/dL (0.2-1.0); CREATININE 1.3 mg/dL (0.70-1.30); Calcium 9.5 mg/dL (8.5-10.1); Chloride 96 mmol/L (98-107); Estimated GFR 56.93 (mL/min/1.73m2); FREE T4 1.18 ng/dL (0.76-1.46); Glucose 445 mg/dL (74-106); Potassium 4.9 mmol/L (3.5-5.1); Sodium 132 mmol/L (136-145); TSH 2.07 uIU/mL (0.36-3.74); Total Protein 6.9 g/dL (6.4-8.2)
== END 2022-12-07 04:40 | disposition home or self-care (01) ==
PROVIDERS: PCP Family Medicine; Visit Provider Nurse Practitioner Adult Health
DX: C34.32 Malignant neoplasm of lower lobe, left bronchus or lung (principal)
CPT/HCPCS: 36415; 80053; 84439; 84443; 85025

== ENCOUNTER 2022-12-30 02:21 | Outpatient (CLI) | payer MEDICARE, SELFPAY ==
[2022-12-30 08:18] LABS: Abs Immature Grans 0.06 10^3/uL (0.0-0.06); Absolute Basophil Count 0.04 10^3/uL (0.0-0.2); Absolute Eosinophil Count 0.31 10^3/uL (0.0-0.7); Absolute Lymphocyte Count 0.84 10^3/uL (1.2-3.4); Absolute Monocyte Count 0.64 10^3/uL (0.1-0.8); Absolute Neutrophil Count 4.44 10^3/uL (1.2-6.7); Basophils % 0.6; Eosinophils % 4.9; HCT 45.8 % (40.0-50.0); HGB 15.2 g/dL (13.5-17.5); Immature Grans % 0.9; Lymphocytes % 13.3; MCH 30.3 pg (27.0-33.0); MCHC 33.2 % (32.0-36.0); MCV 91 fL (80-95); MPV 9.7 fL (8.0-11.0); Monocytes % 10.1; Neutrophils % 70.2; Platelet Count 175 10^3/uL (130-400); RBC 5.01 10^6/uL (4.36-5.78); RDW 13.4 % (11.8-14.1); RDW-SD 45.4 fL; WBC 6.33 10^3/uL (4.4-10.8)
[2022-12-30 08:44] LABS: ALT 16 U/L (16-63); AST 13 U/L (15-37); Albumin 3.6 g/dL (3.4-5.0); Alkaline Phosphatase 56 U/L (46-116); Anion Gap 5.4 mmol/L (3-11); BUN 30 mg/dL (7-18); Bilirubin, Total 0.5 mg/dL (0.2-1.0); CO2 28.6 mmol/L (21.0-32.0); CREATININE 1.2 mg/dL (0.70-1.30); Calcium 9.6 mg/dL (8.5-10.1); Chloride 102 mmol/L (98-107); Estimated GFR 62.67 (mL/min/1.73m2); FREE T4 1.05 ng/dL (0.76-1.46); Glucose 161 mg/dL (74-106); Potassium 4.6 mmol/L (3.5-5.1); Sodium 136 mmol/L (136-145); TSH 4.11 uIU/mL (0.36-3.74); Total Protein 7.2 g/dL (6.4-8.2)
== END 2022-12-30 02:22 | disposition home or self-care (01) ==
LOC: LBO 02:21
PROVIDERS: PCP Family Medicine; Visit Provider Internal Medicine Medical Oncology
DX: Z79.899 Other long term (current) drug therapy (principal); C34.32 Malignant neoplasm of lower lobe, left bronchus or lung; J91.0 Malignant pleural effusion
CPT/HCPCS: 36415; 80053; 84439; 84443; 85025

== ENCOUNTER 2023-01-11 01:27 | Outpatient (CLI) | payer MEDICARE, SELFPAY ==
[2023-01-11] MEDS: Normal Saline - Diluent 50 ML VIAL IJ (09:24)
[2023-01-11] MEDS: Omnipaque 350 MG/ML 500 ML BTL-Imaging package 70 ML IJ (09:25)
--- NOTE | 2023-01-11 09:35 | DI.CT_ITS ---
Exam(s) CT CHEST W EXAM: CT CHEST W CLINICAL HISTORY: LLL LUNG CANCER C34.32 ASSESS TREATMENT RESPONSE. TECHNIQUE: Multi planar reconstructions were performed. CONTRAST MATERIAL: Omnipaque 350; 75 cc COMPARISON: CT CT CHEST W from 07/02/2022 FINDINGS: CHEST: LUNGS: The previously described mass in the left lung base adjacent to the left heart border exhibits minimal if any significant change compared to 07/02/2022. It measures 2.1 x 2.9 cm and 2.5 cm cepha locaudal. It is again noted to be contiguous with the medial aspect of the left hemidiaphragm. Bila teral hyperinflation again noted. COPD and element of pulmonary fibrosis both lung carter is again n oted. MEDIASTINUM: There is no hilar nor mediastinal adenopathy. Visualized thyroid unremarkable. CARDIAC: Heart size normal. No pericardial effusion. Coronary artery calcification in left side of the heart is noted.Caliber of thoracic aorta is upper normal. There is no dissection. Pectus excava deja again noted. VISUALIZED UPPER ABDOMEN:There are no significant adrenal masses. OSSEOUS: No significant osseous lesions.No fractures.. IMPRESSION: 1. Stable appearance of the left lower lobe-left lung base mass when compared to the prior CT scan of 07/02/2022. No new masses in the lung carter nor increasing lymphadenopathy. No pleural effusions. RADIATION DOSE DELIVERED: Total DLP DATA REPOSITORY: All CT scans at this facility are submitted to the National Radiology Data Registry (NRDR) Dose Index Registry (DIR) with the [employer] (ACR). RADIATION OPTIMIZATION: All CT scans at this facility use at least one of these dose optimization te chniques: automated exposure control; mA and/or kV adjustment per patient size (includes targeted exa ms where dose is matched to clinical indication); or iterative reconstruction.
== END 2023-01-11 01:47 ==
PROVIDERS: PCP Family Medicine; Visit Provider Nurse Practitioner Family
DX: C34.32 Malignant neoplasm of lower lobe, left bronchus or lung (principal); Z08 Encounter for follow-up examination after completed treatment for malignant neoplasm
CPT/HCPCS: 71260

== ENCOUNTER 2023-01-18 03:23 | Outpatient (CLI) | payer MEDICARE, SELFPAY ==
[2023-01-18 07:59] LABS: Abs Immature Grans 0.07 10^3/uL (0.0-0.06); Absolute Basophil Count 0.05 10^3/uL (0.0-0.2); Absolute Eosinophil Count 0.38 10^3/uL (0.0-0.7); Absolute Monocyte Count 0.71 10^3/uL (0.1-0.8); Absolute Neutrophil Count 3.53 10^3/uL (1.2-6.7); Basophils % 0.8; Eosinophils % 6.4; HCT 45.7 % (40.0-50.0); HGB 15.2 g/dL (13.5-17.5); Immature Grans % 1.2; Lymphocytes % 20.2; MCH 30.7 pg (27.0-33.0); MCHC 33.3 % (32.0-36.0); MCV 92 fL (80-95); MPV 10.1 fL (8.0-11.0); Neutrophils % 59.4; Platelet Count 192 10^3/uL (130-400); RBC 4.95 10^6/uL (4.36-5.78); RDW 13.6 % (11.8-14.1); WBC 5.94 10^3/uL (4.4-10.8)
[2023-01-18 08:27] LABS: ALT 18 U/L (16-63); AST 15 U/L (15-37); Albumin 3.7 g/dL (3.4-5.0); Alkaline Phosphatase 55 U/L (46-116); Anion Gap 6.5 mmol/L (3-11); BUN 26 mg/dL (7-18); Bilirubin, Total 0.4 mg/dL (0.2-1.0); CO2 29.5 mmol/L (21.0-32.0); Calcium 9.5 mg/dL (8.5-10.1); Chloride 103 mmol/L (98-107); FREE T4 0.93 ng/dL (0.76-1.46); Glucose 211 mg/dL (74-106); Magnesium 2.1 mg/dL (1.8-2.4); Potassium 4.3 mmol/L (3.5-5.1); Sodium 139 mmol/L (136-145); Total Protein 7.2 g/dL (6.4-8.2)
== END 2023-01-18 03:24 | disposition home or self-care (01) ==
PROVIDERS: PCP Family Medicine; Visit Provider Nurse Practitioner Family
DX: Z79.899 Other long term (current) drug therapy (principal); C34.32 Malignant neoplasm of lower lobe, left bronchus or lung
CPT/HCPCS: 36415; 80053; 83735; 84439; 84443; 85025

== ENCOUNTER → 2023-04-13 03:08 | Outpatient (CLI) | payer MEDICARE, SELFPAY ==
[2023-04-13] MEDS: Barium Sulfate 2% W/V-Berry Smoothie 450 ML BTL 900 ML PO (08:40)
[2023-04-13] MEDS: Normal Saline - Diluent 50 ML VIAL IJ (09:28)
[2023-04-13] MEDS: Omnipaque 350 MG/ML 500 ML BTL-Imaging package IJ (09:29)
--- NOTE | 2023-04-13 09:45 | DI.CT_ITS ---
Exam(s) CT ABDOMEN PELVIS W EXAM: CT ABDOMEN PELVIS W CLINICAL HISTORY: left flank pain; hx of lung cancer,r10.9 TECHNIQUE: Imaging Protocol: Axial computed tomography images with coronal and sagittal reformatted images were created and reviewed CONTRAST MATERIAL: Intravenous: Omnipaque 350 Contrast volume:90 mL Oral: Yes FINDINGS: ABDOMEN: Liver: Normal density. No measurable mass. Portal, Superior Mesenteric, and Splenic Veins: Unremarkable. Gallbladder and Biliary Tract: No radiodense calculus or dilation. Pancreas: Normal density, no abnormal calcifications or inflammatory process. Spleen: Normal. Adrenals: No masses seen. Kidneys: Normal size, contour and axis. No radiodense stones or obstructive uropathy. No masses seen. Abdominal Aorta: Abdominal portion non-dilated. Atherosclerosis. Bowel: There is stool seen throughout the colon suggesting constipation. There is no evidence of bow el obstruction. A normal appendix is present. There is a small diverticulum associated with this 3r d portion of the duodenum. No bowel wall thickening is seen. Peritoneal Cavity: No ascites, collection or mesenteric inflammatory response. No free air. Lymph Nodes: Within normal limits. Bones: Within normal limits for the patient's age. There is L5 spondylolysis and grade 1 spondylolis thesis of L5 on S1. No aggressive osseous lesions are identified. Soft Tissues: There is a small fat containing umbilical hernia. There is a small right fat and fluid containing inguinal hernia. PELVIS: Bladder: There is mild diffuse thickening of the wall of the urinary bladder. Reproductive Organs: The prostate gland is enlarged. Lymph Nodes: Within normal limits. Bones: Within normal limits for the patient's age. IMPRESSION: 1. No evidence of abdominal or pelvic metastatic disease. 2. Mild diffuse thickening of the wall of the urinary bladder. This may be due to chronic bladder ou tlet obstruction or cystitis. Please correlate clinically. 3. Enlarged prostate gland. 4. No evidence of nephrolithiasis or obstructive uropathy. RADIATION DOSE DELIVERED: 720.65mGy.cm Total DLP DATA REPOSITORY: All CT scans at this facility are submitted to the National Radiology Data Registry (NRDR) Dose Index Registry (DIR) with the [employer] (ACR). RADIATION OPTIMIZATION: All CT scans at this facility use at least one of these dose optimization te chniques: automated exposure control; mA and/or kV adjustment per patient size (includes targeted exa ms where dose is matched to clinical indication); or iterative reconstruction.
== END ==
PROVIDERS: PCP Family Medicine; Visit Provider Family Medicine
DX: Z85.118 Personal history of other malignant neoplasm of bronchus and lung (principal); R10.9 Unspecified abdominal pain
CPT/HCPCS: 74177

== ENCOUNTER → 2023-04-13 03:08 | Outpatient (CLI) | payer MEDICARE, SELFPAY ==
[2023-04-13 07:33] LABS: Abs Immature Grans 0.05 10^3/uL (0.0-0.06); Absolute Basophil Count 0.06 10^3/uL (0.0-0.2); Absolute Eosinophil Count 0.27 10^3/uL (0.0-0.7); Absolute Lymphocyte Count 1.31 10^3/uL (1.2-3.4); Absolute Monocyte Count 0.63 10^3/uL (0.1-0.8); Absolute Neutrophil Count 4.29 10^3/uL (1.2-6.7); Basophils % 0.9; Eosinophils % 4.1; HCT 45.6 % (40.0-50.0); HGB 15.1 g/dL (13.5-17.5); Immature Grans % 0.8; Lymphocytes % 19.8; MCH 30.2 pg (27.0-33.0); MCHC 33.1 % (32.0-36.0); MCV 91 fL (80-95); MPV 10.2 fL (8.0-11.0); Monocytes % 9.5; Neutrophils % 64.9; Platelet Count 180 10^3/uL (130-400); RDW 13.1 % (11.8-14.1); RDW-SD 43.8 fL; WBC 6.61 10^3/uL (4.4-10.8)
[2023-04-13 08:07] LABS: ALT 16 U/L (16-63); AST 12 U/L (15-37); Albumin 3.5 g/dL (3.4-5.0); Alkaline Phosphatase 46 U/L (46-116); Anion Gap 9.4 mmol/L (3-11); BUN 25 mg/dL (7-18); Bilirubin, Total 0.5 mg/dL (0.2-1.0); CO2 27.6 mmol/L (21.0-32.0); CREATININE 1.1 mg/dL (0.70-1.30); Calcium 9.2 mg/dL (8.5-10.1); Chloride 103 mmol/L (98-107); Estimated GFR 69.57 (mL/min/1.73m2); FREE T4 1.03 ng/dL (0.76-1.46); Glucose 196 mg/dL (74-106); Magnesium 1.8 mg/dL (1.8-2.4); Potassium 4.2 mmol/L (3.5-5.1); Sodium 140 mmol/L (136-145); TSH 3.84 uIU/mL (0.36-3.74)
[2023-04-13] MEDS: Normal Saline - Diluent 50 ML VIAL IJ (09:26)
[2023-04-13] MEDS: Omnipaque 350 MG/ML 500 ML BTL-Imaging package 60 ML IJ (09:27)
--- NOTE | 2023-04-13 09:35 | DI.CT_ITS ---
Exam(s) CT CHEST W EXAM: CT CHEST W CLINICAL HISTORY: LT LUNG CA,C34.32,ASSESS TREATMENT RESPONSE TECHNIQUE: Imaging Protocol: Axial computed tomography images with coronal and sagittal reformatted images were created and reviewed CONTRAST MATERIAL: Intravenous: Omnipaque 350Contrast volume:60 mL. COMPARISON: CT CT CHEST W from 07/02/[address] CHEST W from 01/11/2023 FINDINGS: Tracheobronchial tree: Patent where visualized. Pulmonary parenchyma: There is a calcified granuloma in the right upper lobe. There is again seen bi lateral predominantly peripheral interstitial fibrosis. No focal consolidating infiltrates are seen. The soft tissue mass in the medial aspect of the left lower lobe abutting the diaphragm is unchange d in size. Mediastinum and Krissy: No dominant adenopathy or fluid collection. The esophagus is unremarkable. Thyroid gland: Unremarkable. Pleura: No pleural effusion. There is mild stable pleural thickening in the lower lobes bilaterally posteriorly. Heart: The heart is not dilated. Coronary artery calcifications and/or stents are present. No perica rdial effusion. Aorta: Thoracic aorta non-dilated. Atherosclerosis. Pulmonary arteries: The contrast injection was not timed for opacification of the pulmonary arteries. Lymph nodes: Within normal limits. Bones: Within normal limits for the patient's age. No aggressive osseous lesions are present. Tubes, Catheters, and Lines: None. Soft tissues: Unremarkable. IMPRESSION: 1. No change in appearance of the CT scan of the chest since 01/11/2023. Stable left basilar mass. 2. No acute pulmonary process. RADIATION DOSE DELIVERED: 443.72mGy.cm Total DLP DATA REPOSITORY: All CT scans at this facility are submitted to the National Radiology Data Registry (NRDR) Dose Index Registry (DIR) with the [employer] (ACR). RADIATION OPTIMIZATION: All CT scans at this facility use at least one of these dose optimization te chniques: automated exposure control; mA and/or kV adjustment per patient size (includes targeted exa ms where dose is matched to clinical indication); or iterative reconstruction.
== END ==
PROVIDERS: PCP Family Medicine; Visit Provider Nurse Practitioner Family
DX: Z79.899 Other long term (current) drug therapy (principal); C34.32 Malignant neoplasm of lower lobe, left bronchus or lung
CPT/HCPCS: 36415; 80053; 71260; 83735; 84439; 84443; 85025

== ENCOUNTER → 2023-06-15 14:02 | Outpatient (BNVA) | payer MEDICARE, SELFPAY | PROVIDERS: PCP Family Medicine; Visit Provider Nurse Practitioner Gerontology | DX: N40.1 Benign prostatic hyperplasia with lower urinary tract symptoms (principal); R39.15 Urgency of urination; R97.20 Elevated prostate specific antigen [PSA] | CPT/HCPCS: 51798; 99213 ==

== ENCOUNTER 2023-06-24 11:32 | Outpatient (CLI) | payer MEDICARE, SELFPAY ==
[2023-06-24 10:53] LABS: ESR 2 mm/hr (0-20)
[2023-06-24 10:54] LABS: HCT 45.4 % (40.0-50.0); MCH 30.7 pg (27.0-33.0); MCV 93 fL (80-95); Platelet Count 186 10^3/uL (130-400); RBC 4.89 10^6/uL (4.36-5.78); RDW 13.3 % (11.8-14.1); RDW-SD 46.1 fL; WBC 5.98 10^3/uL (4.4-10.8)
[2023-06-24 11:55] LABS: C-Reactive Protein < 0.50 mg/dL (<or=0.5)
== END 2023-06-24 11:33 | disposition home or self-care (01) ==
LOC: LBO 11:34
PROVIDERS: PCP Family Medicine
DX: M31.6 Other giant cell arteritis (principal)
CPT/HCPCS: 36415; 85027; 85652; 86140

== ENCOUNTER → 2023-08-19 01:49 | Outpatient (CLI) | payer MEDICARE, SELFPAY ==
--- NOTE | 2023-08-19 | DI.CT_ITS ---
Exam(s) CT CHEST W EXAM: CT CHEST W CLINICAL HISTORY: METS LUNG CA, EXCELLENT RESPONSE TO IMMUNOTHERAPY, C34.32 TECHNIQUE: Imaging Protocol: Axial computed tomography images with coronal and sagittal reformatted images were created and reviewed CONTRAST MATERIAL: Intravenous: Omnipaque 350Contrast volume:70 mL. COMPARISON: CT CT CHEST W from 02/09/[address] CHEST W from 04/27/[address] CHEST W from 07/02/[address] CHEST W from 01/11/[address] CHEST W from 04/13/2023 FINDINGS: Tracheobronchial tree: Mild bronchiectasis in the lower lobes. No bronchial wall thickening or mucou s plugging. Pulmonary parenchyma: No focal consolidating infiltrates are present. There is again seen predominan tly peripheral interstitial thickening. This is unchanged compared to the prior examinations. The p leural thickening in the left lower lobe is unchanged as is the soft tissue mass in the medial left l aryan base. No new pulmonary nodules are seen. There is a calcified granuloma in the right upper lobe . Mediastinum and Krissy: No dominant adenopathy or fluid collection. The esophagus is unremarkable. Thyroid gland: Unremarkable. Pleura: No pleural effusion. No pneumothorax. Pleural calcifications are seen bilaterally. Heart: The heart is not dilated. Coronary artery calcification and/or stents are present. No pericar dial effusion. Aorta: The ascending thoracic aorta measures 4 x 3.7 cm. No evidence of dissection. Atherosclerotic calcification is present. Pulmonary arteries: Due to the timing of the bolus, pulmonary artery evaluation is suboptimal for lou luation of pulmonary emboli. No large central pulmonary embolus is identified. Upper abdomen: Unremarkable. Lymph nodes: There is a simple left renal cyst. No follow-up is recommended. Bones: Within normal limits for the patient's age. Soft tissues: Unremarkable. IMPRESSION: 1. Stable appearance of the CT scan of the chest since 04/13/2023. 2. No acute pulmonary process. RADIATION DOSE DELIVERED: 482.2mGy.cm Total DLP DATA REPOSITORY: All CT scans at this facility are submitted to the National Radiology Data Registry (NRDR) Dose Index Registry (DIR) with the [employer] (ACR). RADIATION OPTIMIZATION: All CT scans at this facility use at least one of these dose optimization te chniques: automated exposure control; mA and/or kV adjustment per patient size (includes targeted exa ms where dose is matched to clinical indication); or iterative reconstruction.
[2023-08-19 08:46] LABS: Abs Immature Grans 0.08 10^3/uL (0.0-0.06); Absolute Basophil Count 0.07 10^3/uL (0.0-0.2); Absolute Eosinophil Count 0.35 10^3/uL (0.0-0.7); Absolute Lymphocyte Count 1.23 10^3/uL (1.2-3.4); Absolute Monocyte Count 0.63 10^3/uL (0.1-0.8); Absolute Neutrophil Count 3.89 10^3/uL (1.2-6.7); Basophils % 1.1 %; Eosinophils % 5.6 %; HCT 49.2 % (40.0-50.0); HGB 16.6 g/dL (13.5-17.5); Immature Grans % 1.3 %; Lymphocytes % 19.7 %; MCH 31.1 pg (27.0-33.0); MCHC 33.7 % (32.0-36.0); MCV 92 fL (80-95); MPV 9.8 fL (8.0-11.0); Monocytes % 10.1 %; Neutrophils % 62.2 %; Platelet Count 211 10^3/uL (130-400); RBC 5.34 10^6/uL (4.36-5.78); RDW 13.2 % (11.8-14.1); WBC 6.25 10^3/uL (4.4-10.8)
[2023-08-19 09:18] LABS: ALT 26 U/L (16-63); AST 15 U/L (15-37); Albumin 4.3 g/dL (3.4-5.0); Alkaline Phosphatase 59 U/L (46-116); Anion Gap 7.5 mmol/L (3-11); BUN 29 mg/dL (7-18); Bilirubin, Total 0.7 mg/dL (0.2-1.0); CO2 31.5 mmol/L (21.0-32.0); CREATININE 1.2 mg/dL (0.70-1.30); Calcium 9.6 mg/dL (8.5-10.1); Chloride 98 mmol/L (98-107); Estimated GFR 62.29 (mL/min/1.73m2); FREE T4 1.17 ng/dL (0.76-1.46); Glucose 232 mg/dL (74-106); Magnesium 2.1 mg/dL (1.8-2.4); Potassium 4.8 mmol/L (3.5-5.1); Sodium 137 mmol/L (136-145); TSH 3.46 uIU/Ml (0.36-3.74); Total Protein 8.1 g/dL (6.4-8.2)
[2023-08-19] MEDS: Normal Saline - Diluent 50 ML VIAL IJ (09:28)
[2023-08-19] MEDS: Omnipaque 350 MG/ML 100 ML BTL IJ (09:29)
== END ==
PROVIDERS: Nurse Practitioner Family; PCP Family Medicine; Visit Provider Internal Medicine Medical Oncology
DX: Z79.899 Other long term (current) drug therapy (principal); C34.32 Malignant neoplasm of lower lobe, left bronchus or lung
CPT/HCPCS: 80053; 71260; 83735; 84439; 84443; 85025; J3490

== ENCOUNTER 2023-09-14 03:23 | Outpatient (CLI) | payer MEDICARE, SELFPAY ==
[2023-09-14 12:55] LABS: Anion Gap 9.9 mmol/L (3-11); BUN 27 mg/dL (7-18); CO2 29.1 mmol/L (21.0-32.0); CREATININE 1.1 mg/dL (0.70-1.30); Calcium 10.1 mg/dL (8.5-10.1); Chloride 104 mmol/L (98-107); Estimated GFR 69.14 (mL/min/1.73m2); Glucose 189 mg/dL (74-106); Potassium 4.5 mmol/L (3.5-5.1); Sodium 143 mmol/L (136-145)
[2023-09-16 11:11] LABS: C-Peptide <0.1 ng/mL (1.1 - 4.4)
== END 2023-09-14 03:24 | disposition home or self-care (01) ==
LOC: LOS 03:24
PROVIDERS: PCP Family Medicine; Visit Provider Family Medicine
DX: E11.9 Type 2 diabetes mellitus without complications (principal)
CPT/HCPCS: 36415; 80048; 84681

== ENCOUNTER → 2023-12-14 08:18 | Outpatient (BNVA) | payer MEDICARE, SELFPAY | PROVIDERS: PCP Family Medicine; Visit Provider Nurse Practitioner Gerontology | DX: N40.0 Benign prostatic hyperplasia without lower urinary tract symptoms (principal); R97.20 Elevated prostate specific antigen [PSA]; Z79.899 Other long term (current) drug therapy | CPT/HCPCS: 51798; 99213 ==

== ENCOUNTER 2023-12-21 01:39 | Outpatient (CLI) | payer MEDICARE, SELFPAY ==
--- NOTE | 2023-12-21 | DI.CT_ITS ---
Exam(s) CT CHEST/ABD/PEL W EXAM: CT CHEST/ABD/PEL W CLINICAL HISTORY: LUNG CANCER C34.32 RESTAGING. TECHNIQUE: Imaging Protocol: Axial computed tomography images with coronal and sagittal reformatted images were created and reviewed CONTRAST MATERIAL: Intravenous: Omnipaque 350 Contrast volume:100 ml Oral: yes/for COMPARISON: CT CT ABDOMEN PELVIS W from 04/13/[address] CHEST W from 08/19/2023 FINDINGS: CHEST: Tracheobronchial tree: Patent. Pulmonary parenchyma: Stable mass at the medial left lung base measuring 2.2 x 2.3 cm by 1.5 cm. Sut ure material at left lung apex. No consolidation. Bilateral interstitial changes again noted, great est in the upper lobes Pleura: No effusion or pneumothorax. Stable mild left lower lobe pleural thickening. Mediastinum: Contrast seen within esophagus which could be residual represent reflux. Aorta: Thoracic aorta measures 4 cm in diameter, unchanged. Pulmonary arteries: . No visible emboli. Heart: Normal size. Coronary artery calcifications. No pericardial effusion. Bones: Pectus excavatum deformity. No lytic or blastic lesions.No compression fractures. Soft tissues: Unremarkable. ABDOMEN and PELVIS: Exam limited by lack of intra-abdominal fat and image noise. Liver: Normal density. No measurable mass. Gallbladder and biliary tract: No evidence of stones or wall thickening. No biliary dilatation. Pancreas: Normal density, no abnormal calcifications or inflammatory process. Spleen: Normal. Kidneys: Normal size, contour and axis. No radiodense stones. No obstructive uropathy. No suspicious masses seen. Adrenal glands: No masses seen. Aorta: Abdominal portion non-dilated. Severe atherosclerotic changes. Lymph nodes: Within normal limits. Soft tissues: Unremarkable. Bladder: Distended. Mild wall thickening likely related to chronic outlet obstruction. Bowel: Stomach well distended with oral contrast. No obstruction or bowel wall thickening. Large qu antity of stool. Peritoneal cavity: No ascites. No focal collection. No mesenteric inflammatory response. No free ai r. Bones: No lytic or blastic lesions. L5 spondylolysis and mild L5-S1 spondylolisthesis as well as dege nerative disc changes are again noted. Reproductive organs: Enlarged prostate, impressing on the base of the bladder. Stable appearance left epididymal head cyst. IMPRESSION: Stable size of left lower lobe mass. Stable mild left pleural thickening. No new abnormalities. No evidence of metastatic disease in the abdomen or pelvis. RADIATION DOSE DELIVERED: 337.15mGy.cm Total DLP DATA REPOSITORY: All CT scans at this facility are submitted to the National Radiology Data Registry (NRDR) Dose Index Registry (DIR) with the [employer] (A[employer]). RADIATION OPTIMIZATION: All CT scans at this facility use at least one of these dose optimization te chniques: automated exposure control; mA and/or kV adjustment per patient size (includes targeted exa ms where dose is matched to clinical indication); or iterative reconstruction.
[2023-12-21] MEDS: Barium Sulfate 2% W/V-Berry Smoothie 450 ML BTL PO ×2 (07:54→07:55)
[2023-12-21 08:30] LABS: Abs Immature Grans 0.05 10^3/uL (0.0-0.06); Absolute Basophil Count 0.05 10^3/uL (0.0-0.2); Absolute Eosinophil Count 0.22 10^3/uL (0.0-0.7); Absolute Lymphocyte Count 1.24 10^3/uL (1.2-3.4); Absolute Monocyte Count 0.69 10^3/uL (0.1-0.8); Absolute Neutrophil Count 4.36 10^3/uL (1.2-6.7); Basophils % 0.8 %; Eosinophils % 3.3 %; HCT 45.2 % (40.0-50.0); HGB 14.7 g/dL (13.5-17.5); Immature Grans % 0.8 %; Lymphocytes % 18.8 %; MCH 30.3 pg (27.0-33.0); MCHC 32.5 % (32.0-36.0); MCV 93 fL (80-95); Monocytes % 10.4 %; Neutrophils % 65.9 %; Platelet Count 163 10^3/uL (130-400); RBC 4.85 10^6/uL (4.36-5.78); RDW 13.1 % (11.8-14.1); RDW-SD 44.9 fL; WBC 6.61 10^3/uL (4.4-10.8)
[2023-12-21 08:55] LABS: ALT 22 U/L (16-63); AST 17 U/L (15-37); Albumin 3.5 g/dL (3.4-5.0); Alkaline Phosphatase 58 U/L (46-116); Anion Gap 8.7 mmol/L (3-11); BUN 25 mg/dL (7-18); CO2 27.3 mmol/L (21.0-32.0); CREATININE 1.2 mg/dL (0.70-1.30); Calcium 9.1 mg/dL (8.5-10.1); Chloride 97 mmol/L (98-107); Estimated GFR 62.29 (mL/min/1.73m2); FREE T4 1.19 ng/dL (0.76-1.46); Glucose 229 mg/dL (74-106); Magnesium 1.9 mg/dL (1.8-2.4); Potassium 4.4 mmol/L (3.5-5.1); Sodium 133 mmol/L (136-145); TSH 5.06 uIU/Ml (0.36-3.74)
[2023-12-21] MEDS: Normal Saline - Diluent 50 ML VIAL IJ (10:09)
[2023-12-21] MEDS: Omnipaque 350 MG/ML 100 ML BTL IJ (10:10)
== END 2023-12-21 01:59 ==
PROVIDERS: PCP Family Medicine; Visit Provider Internal Medicine Medical Oncology
DX: Z79.899 Other long term (current) drug therapy (principal); C34.32 Malignant neoplasm of lower lobe, left bronchus or lung
CPT/HCPCS: 74177; 80053; 71260; 83735; 84439; 84443; 85025; J3490

== ENCOUNTER → 2024-03-21 08:27 | Outpatient (BNVA) | payer MEDICARE, SELFPAY | PROVIDERS: PCP Family Medicine; Visit Provider Nurse Practitioner Gerontology | DX: N40.1 Benign prostatic hyperplasia with lower urinary tract symptoms (principal); N13.8 Other obstructive and reflux uropathy; R97.20 Elevated prostate specific antigen [PSA] | CPT/HCPCS: 51798; 99213 ==

== ENCOUNTER 2024-05-18 07:48 | Observation (INO) | payer MEDICARE, SELFPAY ==
[2024-05-18] VITALS (94 sets, daily range): BP systolic 85–149; BP diastolic 42–69; PULSE 68–94; RESP 12–23; TEMP 36.4–37; O2SAT 93–100
--- NOTE | 2024-05-18 07:45 | RT.EKG_ITS ---
APPROVED REPORT Exam: Resting ECG Reason for Exam: Chest Pain Patient Location: E HR:87 bpm ECG Measurements Heart Rate 87 AXIS TN 175 P 79 QRSd 100 QRS 12 QT 367 T 67 QTc 441 Conclusion Sinus rhythm...normal P axis, V-rate 60- 99 Probable left atrial enlargement...P >50mS, <-0.10mV V1 Borderline ST depression, anterolateral leads...ST <-0.07mV, I aVL V2-V6 I have reviewed and interpreted ECG and agree with software generated interpretation.
--- NOTE | 2024-05-18 08:04 | W.ED.GENAD ---
Discharge Plan Discharge Details Chief Complaint: Chest Pain Admit Date/Time: 05/18/24 12:53 Admit Provider: Dieudonne Trent Attending Provider: Dieudonne Trent Primary Care Provider: Paxton Segura ED Provider: Saima Lepe Discharge Data Discharge Date/Time-TO BE ENTERED AT DEPARTURE: 05/18/24 14:01 HPI General Date/Time Provider Initiated Documentation: 05/18/24 08:02. HPI Narrative: Chandana is a 78 year old male who presents to the emergency department today for evaluation of chest discomfort. Reports symptoms started this morning when he woke up at 6:10 PM, it was right-sided chest discomfort that radiated down his arm, prompting ED. Isolating to his back. Initially was rated 3/10 at its worst, now rated 1/10. This is accompanied by mild shortness of he did vomit x 1. Follow-up with regular care he denies fever/chills, dizziness, new congestion, sore throat, cough, abdominal pain, pedal edema, calf swelling/redness. He reports that yesterday his CGM stopped working, but is not sure if this fingerstick machine is working. He did extensive shoveling and yesterday and had increased SOB/fatigue from baseline. He is [id number]. No history of cardiac disease, blood clots, estrogen use, recent surgery/immobility. Past medical history is significant for T1DM, HLD, and non-small cell lung cancer with metastasis. Physical exam reassuring. Chandana is alert and oriented, no. Easy work of breathing, lung sounds clear bilaterally. Normal heart sounds. No rashes noted on chest wall. No JVD or pedal edema. Abdomen soft, nondistended palpation. D/dx includes but is not limited to: ACS, DKA, pneumothorax, pneumonia, PE (higher risk in patient with malignancy), GERD, esophageal spasm, neuropathy/early shingles, DKA/HHS. Heart score 6, indicating moderate risk of MACE I independently interpreted the following tests: EKG remarkable for mild ST depressions. V3 through V6; otherwise normal sinus rhythm rate 87, normal intervals. No previous available for comparison. CBC reassuring. CMP notable for anion gap of 20.7, elevated BUN 45, elevated creatinine above baseline, 1.4. Glucose 305. Serial troponins negative. VBG performed, significant for metabolic acidosis with pH 7.2, bicarb 15, base excess -13. No acute abnormalities noted on chest x-ray. While in the emergency department, Chandana received IV Zofran after starting to vomit. He reports that his pain increased to 4/10 while vomiting, is radiating down both arms at that time. This was not completed by diaphoresis, dizziness or other symptoms. Pain has now decreased back down to 1/10. He has also received chewable aspirin. History and clinical picture consistent with DKA, fluid rehydration initiated with normal saline, followed by lactated Ringer's. Insulin drip of 6 units/h initiated. Unclear etiology of chest discomfort, overall cardiac workup today reassuring. Presented case to hospitalist DR Trent, patient to be admitted for DKA management. Related Data Home Medications ?Medication ?Instructions ?Recorded ?Confirmed pen needle, diabetic 32 gauge x #400 ea 03/02/18 05/18/24 5/32 (BD Ultra-Fine Ankita Pen Needle) lancets 33 gauge (BD Ultra Fine #300 ea 09/18/19 05/18/24 Lancets) flash glucose scanning reader #1 ea 01/10/20 05/18/24 (FreeStyle [place] 14 Day [place]) blood-glucose meter (FreeStyle #1 ea 01/12/22 05/18/24 Lite Meter kit) triamcinolone acetonide 0.1 % 1 applic topical DAILY 05/27/22 05/18/24 topical cream blood sugar diagnostic #300 strips 06/03/22 05/18/24 insulin admin supplies (Novopen #1 ea 08/31/22 05/18/24 Echo subcutaneous) glucagon (human recombinant) 1 mg 1 mg subcut Q20M PRN hypoglycemia 06/02/23 05/18/24 solution for injection #1 ea valacyclovir 500 mg tablet 500 mg PO BID PRN herpes #30 06/02/23 05/18/24 (Valtrex) tab-caps dulaglutide 0.75 mg/0.5 mL 0.75 mg (0.5 mL) subcut QWEEK 28 08/26/23 05/18/24 subcutaneous pen injector days #2 mL (Trulicity) metformin 500 mg tablet 500 mg PO BID 90 days #180 tabs 08/26/23 05/18/24 flash glucose sensor (FreeStyle #1 ea 10/25/23 05/18/24 [place] 2 Sensor kit) insulin aspart U-100 100 unit/mL 120 unit (1.2 mL) subcut ONCE 11/29/23 05/18/24 subcutaneous solution (Novolog Diabetes mellitus 1, insulin for U-100 Insulin aspart) Tandem Pump 90 days #40 mL empagliflozin 25 mg tablet 25 mg PO DAILY #90 tab-caps 12/03/23 05/18/24 (Jardiance) blood-glucose sensor ([employer] G7 #3 ea 12/13/23 05/18/24 Sensor device) atorvastatin 10 mg tablet (Lipitor) 10 mg PO QPM #90 tabs 01/03/24 05/18/24 levothyroxine 50 mcg capsule 50 mcg PO DAILY #90 caps 01/04/24 05/18/24 losartan 50 mg tablet 50 mg PO DAILY #90 tabs 02/24/24 05/18/24 insulin aspart U-100 100 unit/mL 15 unit (0.15 mL) subcut TID 30 03/20/24 05/18/24 subcutaneous cartridge (Novolog days #15 mL PenFill U-100 Insulin aspart) tamsulosin 0.4 mg capsule (Flomax) 0.4 mg PO DAILY #90 caps 03/21/24 05/18/24 fluoxetine 20 mg tablet 40 mg PO DAILY 05/18/24 05/18/24 Previous Rx's ?Medication ?Instructions ?Recorded pen needle, diabetic 32 gauge x #400 ea 03/02/1832 (BD Ultra-Fine Ankita Pen Needle) lancets 33 gauge (BD Ultra Fine #300 ea 09/18/19 Lancets) flash glucose scanning reader #1 ea 01/10/20 (FreeStyle [place] 14 Day [place]) blood-glucose meter (FreeStyle #1 ea 01/12/22 Lite Meter kit) blood sugar diagnostic #300 strips 06/03/22 insulin admin supplies (Novopen #1 ea 08/31/22 Echo subcutaneous) glucagon (human recombinant) 1 mg 1 mg subcut Q20M PRN hypoglycemia 06/02/23 solution for injection #1 ea valacyclovir 500 mg tablet 500 mg PO BID PRN herpes #30 06/02/23 (Valtrex) tab-caps dulaglutide 0.75 mg/0.5 mL 0.75 mg (0.5 mL) subcut QWEEK 28 08/26/23 subcutaneous pen injector days #2 mL (Trulicity) metformin 500 mg tablet 500 mg PO BID 90 days #180 tabs 08/26/23 flash glucose sensor (FreeStyle #1 ea 10/25/23 [place] 2 Sensor kit) insulin aspart U-100 100 unit/mL 120 unit (1.2 mL) subcut ONCE 11/29/23 subcutaneous solution (Novolog Diabetes mellitus 1, insulin for U-100 Insulin aspart) Tandem Pump 90 days #40 mL empagliflozin 25 mg tablet 25 mg PO DAILY #90 tab-caps 12/03/23 (Jardiance) blood-glucose sensor ([employer] G7 #3 ea 12/13/23 Sensor device) atorvastatin 10 mg tablet (Lipitor) 10 mg PO QPM #90 tabs 01/03/24 levothyroxine 50 mcg capsule 50 mcg PO DAILY #90 caps 01/04/24 losartan 50 mg tablet 50 mg PO DAILY #90 tabs 02/24/24 insulin aspart U-100 100 unit/mL 15 unit (0.15 mL) subcut TID 30 03/20/24 subcutaneous cartridge (Novolog days #15 mL PenFill U-100 Insulin aspart) tamsulosin 0.4 mg capsule (Flomax) 0.4 mg PO DAILY #90 caps 03/21/24 Allergies Allergy/AdvReac Type Severity Reaction Status Date / Time benzalkonium chloride AdvReac Severe Visual Verified 03/29/24 08:30 Disturbances Review of Systems Narrative: see HPI Exam Const General: cooperative, healthy appearing, comfortable, no acute distress, well developed and well groomed Nutritional Appearance: average body habitus Orientation: alert and oriented x3 Neck Neck: normal visual inspection Chest Chest: normal inspection of the chest, normal palpation of entire chest wall and No rash Resp Effort & Inspection: normal respiratory effort and able to speak in complete sentences Auscultation: clear to auscultation bilaterally Cardio Jugular venous pressure: no JVD Rate: regular rate Rhythm: regular rhythm GI Inspection: normal to inspection and non-distended Palpation: soft, not firm and no guarding Skin General skin exam: no rashes or lesions noted Extrem General: no pedal edema and no calf tenderness Medical Decision Making Imaging Data Radiologic Study: Radiologist's impression: Exam(s) XR CHEST 2V PA LATERAL EXAM: XR CHEST 2V PA LATERAL CLINICAL HISTORY: Chest pain TECHNIQUE: 2D digital imaging was performed. Two views. COMPARISON: CT CT CHEST/ABD/PEL W from 12/21/2023 FINDINGS: HEART: Normal size. Aorta: Not dilated. PULMONARY VASCULATURE: Normal. MEDIASTINUM: Unremarkable. LUNGS: Mild fibrotic changes. Area of scarring or atelectasis in the medial left lung base. Previous CT demonstrated a mass in this location. No definite mass is visible on this examination. PLEURAL SPACE: No pleural effusion or pneumothorax. Left apical pleural calcification. BONE:Pectus excavatum deformity. SOFT TISSUES: Unremarkable. IMPRESSION: Left the medial basilar atelectasis versus scarring. A mass is not visible. Quality:SDOH Health Related Social Needs: Health related social needs feeling lonely/isolated (Z60.8) PFSH All Active Problems (Updated 05/18/24 @ 12:35 by Dieudonne Trent DO) DKA (diabetic ketoacidosis) (Acute) Hypothyroidism (Chronic) BPH w urinary obs/LUTS (Acute) Diabetes mellitus type 1 (Acute) Hypoglycemia (Acute) Neuropathy (Acute) Left flank pain (Acute) Hearing loss (Acute) Rectal polyp (Acute) Chronic sinusitis (Acute 11/22/13) Depressive disorder (Acute) Diabetes mellitus (Acute 06/13/12) Glaucoma (Acute) OPTICAL EXPRESSIONS Herpes simplex (Acute) Hyperlipidemia (Acute) Irritable colon (Acute) Glaucoma, open angle (Acute) O.U. Varicose veins of lower extremity (Acute) Weight loss (Acute) Impacted cerumen of right ear (Acute) syringed to clear Encounter for screening colonoscopy (Acute) Flatulence (Chronic) Prostatism (Acute) Status post inguinal hernia repair (Acute) Kidney stone (Acute) History of hemorrhoidectomy (Acute) History of cataract removal with insertion of prosthetic lens (Acute) Elevated PSA (Chronic) Skin lesion (Acute) Upper back pain (Acute) Pleural effusion, left (Acute) Recurrent pleural effusion on left (Acute) Preoperative testing (Acute) Pulmonary mass (Acute) Non-small cell lung cancer with metastasis (Acute) Skin lesion (Acute) Palliative care patient (Acute) Anxiety disorder (Acute) Hyperglycemia (Acute) COVID-19 (Acute ~09/04/21) Screening for colon cancer (Acute) Medical History Abnormal colonoscopy (~04/22/18) Dr Benny Dewey, [facility], tubular adenoma, repeat three years per Dr Reddy's recommendation.mg Pulmonary mass Surgical History Extraction of cataract B/L Hemorrhoidectomy History of colonoscopy Repair of inguinal hernia RIGHT Family History Mother , AGE 94 Depression Father , AGE 91 Heart disease Brother Heart disease Son No problems noted. Daughter No problems noted. Social History Smoking/Tobacco Use Status: Never Second Hand Exposure: Yes Smoking risk assessment performed?: Yes Alcohol Intake: current Alcohol Intake frequency: a few times a month Alcohol type: beer and wine Drug use: Never Substance use type: does not use Caregiver/Support person: No Household members: spouse Housing: house Communication Needs: None Do you need help understanding health information?: Never Pets and animals: No Sexually active: No Do you think of yourself as: straight/heterosexual Current gender identity: male What is your relationship status?: How often do you talk on the phone with friends or family?: twice per week How often do you get together with friends or relatives?: twice per week How often do you attend christianity or baptist services?: 1-3 times per year Do you belong to any clubs or organized social groups?: yes Panel score (0-1 are the most socially isolated patients): 3 What type of physical activity do you participate in: walking and aerobic Julia/Uatsdin: Agnostic Seatbelt use: always Helmet use: Yes Helmet use: always Drive intox or ride w/intox stock car driver: No Do you feel safe at home: Yes Do you feel safe in your relationship?: Yes
--- NOTE | 2024-05-18 08:15 | DI.RAD_ITS ---
Exam(s) XR CHEST 2V PA LATERAL EXAM: XR CHEST 2V PA LATERAL CLINICAL HISTORY: Chest pain TECHNIQUE: 2D digital imaging was performed. Two views. COMPARISON: CT CT CHEST/ABD/PEL W from 12/21/2023 FINDINGS: HEART: Normal size. Aorta: Not dilated. PULMONARY VASCULATURE: Normal. MEDIASTINUM: Unremarkable. LUNGS: Mild fibrotic changes. Area of scarring or atelectasis in the medial left lung base. Previou s CT demonstrated a mass in this location. No definite mass is visible on this examination. PLEURAL SPACE: No pleural effusion or pneumothorax. Left apical pleural calcification. BONE:Pectus excavatum deformity. SOFT TISSUES: Unremarkable. IMPRESSION: Left the medial basilar atelectasis versus scarring. A mass is not visible. DATA REPOSITORY: RADIATION DOSE DELIVERED:
[2024-05-18 08:40] LABS: Absolute Basophil Count 0.06 10^3/uL (0.0-0.2); Absolute Eosinophil Count 0.09 10^3/uL (0.0-0.7); Absolute Lymphocyte Count 1.56 10^3/uL (1.2-3.4); Absolute Monocyte Count 0.39 10^3/uL (0.1-0.8); Absolute Neutrophil Count 6.04 10^3/uL (1.2-6.7); Basophils % 0.7 %; Eosinophils % 1.1 %; HCT 49.7 % (40.0-50.0); HGB 16.5 g/dL (13.5-17.5); Immature Grans % 1.2 %; Lymphocytes % 18.9 %; MCH 31.2 pg (27.0-33.0); MCHC 33.2 % (32.0-36.0); MCV 94 fL (80-95); MPV 10.2 fL (8.0-11.0); Monocytes % 4.7 %; Neutrophils % 73.4 %; Platelet Count 185 10^3/uL (130-400); RBC 5.29 10^6/uL (4.36-5.78); RDW 13.2 % (11.8-14.1); RDW-SD 46.2 fL; WBC 8.24 10^3/uL (4.4-10.8)
[2024-05-18] MEDS: Ondansetron 4 MG/2 ML VIAL IVP (08:42)
[2024-05-18] MEDS: nitroGLYcerin 0.4 MG TAB SL (08:42)
[2024-05-18] MEDS: Aspirin 81 MG CHEW 324 MG CH (08:43)
[2024-05-18 08:55] LABS: PTT Activated 24.6 sec (20.6-30.2); Prothrombin Time 10.2 sec (9.1-11.1)
[2024-05-18 09:09] LABS: ALT 30 U/L (16-63); AST 19 U/L (15-37); Albumin 4.1 g/dL (3.4-5.0); Alkaline Phosphatase 67 U/L (46-116); Anion Gap 20.5 mmol/L (3-11); BUN 43 mg/dL (7-18); Bilirubin, Total 0.87 mg/dL (0.2-1.0); CO2 17.5 mmol/L (21.0-32.0); CREATININE 1.5 mg/dL (0.70-1.30); Calcium 9.9 mg/dL (8.5-10.1); Chloride 99 mmol/L (98-107); D-Dimer 435 ng/mlFEU (<500); Estimated GFR 47.65 (mL/min/1.73m2); Glucose 317 mg/dL (74-106); Lipase 23 U/L (<78); Magnesium 2.2 mg/dL (1.8-2.4); NT-proBNP 114 pg/mL (<300); Potassium 5.3 mmol/L (3.5-5.1); Sodium 137 mmol/L (136-145); Total Protein 7.8 g/dL (6.4-8.2)
[2024-05-18 09:10] LABS: Troponin I < 4 ng/L (<or=76)
[2024-05-18] MEDS: Famotidine 20 MG/2 ML VIAL IVP (09:31)
[2024-05-18] MEDS: Normal Saline 1,000 ML 1000 ML IV (09:31)
[2024-05-18 09:41] LABS: BE (Venous) -13 mmol/L (-2-3); HCO3 (Venous) 15 mmol/L (23-28); Lactate 1.9 mmol/L (<or=2.0); O2 Sat (Venous) 65 %; TCO2 (Venous) 14 mmol/L (24-29); pCO2 (Venous) 38 mmHg (41-51); pO2 (Venous) 40 mmHg
[2024-05-18 09:50] LABS: Lab Add On Test DONE
[2024-05-18 10:06] LABS: Troponin I < 4 ng/L (<or=76)
[2024-05-18] MEDS: Lactated Ringers 1,000 ML 1000 ML IV (10:19)
[2024-05-18 10:21] LABS: COVID-19 PCR Negative (Negative); Influenza A PCR Negative (Negative); Influenza B PCR Negative (Negative); RSV PCR Negative (Negative)
[2024-05-18 10:22] LABS: Source Nasopharynx
[2024-05-18] MEDS: INSULIN REGULAR IN 0.9 % NACL 100 UNIT/100 ML BAG 6 UNIT IVINF (10:24)
[2024-05-18 10:51] LABS: Bilirubin Negative (Negative); Blood Negative (Negative); Clarity Clear (Clear); Glucose 500 mg/dL (Negative); Ketones >=160 mg/dL (Negative); Leukocyte Esterase Negative (Negative); Nitrite Negative (Negative); Urobilinogen 0.2 mg/dL (Up to 0.2); pH 5.5 (5-8)
[2024-05-18 10:54] LABS: Anion Gap 20.7 mmol/L (3-11); BUN 45 mg/dL (7-18); CO2 14.3 mmol/L (21.0-32.0); CREATININE 1.4 mg/dL (0.70-1.30); Calcium 9.1 mg/dL (8.5-10.1); Chloride 103 mmol/L (98-107); Estimated GFR 51.77 (mL/min/1.73m2); Glucose 305 mg/dL (74-106); Potassium 5.5 mmol/L (3.5-5.1); Sodium 138 mmol/L (136-145)
--- NOTE | 2024-05-18 12:23 | HPE_ITS ---
Date of service: 05/18/24 Time of Service: 12:24 Assessment and Plan Assessment and plan (1) DKA (diabetic ketoacidosis): Status: Acute Assessment and plan: - admit to ICU - insulin gtt per protocol - given 2L NS as bolus in ER, will continue NS infusion - monitor lytes, BG, and AG closely. replete as needed (K = 5.5 on initial draw) - keep on clear liquid diet only for now, can consider advancing once DKA/nausea improves - conversion to basal/mealtime insulin once AG closes - patient will likely require new glucometer, can pursue getting new pump with his outpatient providers - hold outpatient PO meds for now (metformin, jardiance) - continue losartan (2) Hyperlipidemia: Status: Acute Assessment and plan: continue atorvastatin (3) Hypothyroidism: Status: Chronic Assessment and plan: continue levothyroxine History of Present Illness History of Present Illness Chief Complaint: chest pain Narrative: This is a 78 yo male with pmhx: IDDM, hypoerlipidemia, BPH, NSCLCa with mets, anxiety that presents today c/o CP. Patient is pleasant and a good historian. Tells me that he was previouisly on an insulin pump which controlled his DM well. However, his pump broke and started using injectable insulin. He had two defective dexacom units and changed over to using his old glucometer. Had suspicions that it may not have been accurate. Starting this morning he had symptoms that included r sided chest pain. Radiated down his arm and a little to his back. He also noted dizziness and had 2 episodes of vomiting with some residual nausea. W/U included CT that was negative. However, he was found to be in DKA with AG = 20, BG = 305. He was started on insulin gtt with some improvement in his symptoms and he was sleeping when I arrived to examine him. He tells me the CP and nausea has completely resolved. Patient now being admitted to ICU for treatment of DKA. Review of Systems Constitutional Constitutional: Denies excessive sweating, Reports fatigue, Reports poor appetite and Reports weakness Cardiovascular Cardiovascular: Reports chest pain at rest, Denies irregular heart rhythm, Denies leg edema, Reports radiating jaw, neck or arm pain, Denies palpitations and Denies dyspnea Respiratory Respiratory: Denies chest congestion, Denies cough, Denies dyspnea and Denies wheezing Gastrointestinal Gastrointestinal: Denies abdominal pain, Denies melena, Denies bloating, Denies hematochezia, Reports heartburn, Denies diarrhea, Reports nausea, Reports vomiting and Denies hematemesis Musculoskeletal Musculoskeletal: Reports system reviewed and no additional complaints, except as documented Integumentary/Breasts Skin/Breast: Reports system reviewed and no additional complaints, except as documented Neurologic Neurologic: Reports system reviewed and no additional complaints, except as documented and Reports weakness Endocrine Endocrine: Reports as per HPI, Denies excessive sweating, Reports fatigue and Denies palpitations Allergic/Immunologic Allergic/Immunologic: Reports system reviewed and no additional complaints, except as documented and Denies wheezing PFSH All Active Problems (Updated 05/18/24 @ 12:35 by Dieudonne Trent DO) DKA (diabetic ketoacidosis) (Acute) Hypothyroidism (Chronic) BPH w urinary obs/LUTS (Acute) Diabetes mellitus type 1 (Acute) Hypoglycemia (Acute) Neuropathy (Acute) Left flank pain (Acute) Hearing loss (Acute) Rectal polyp (Acute) Chronic sinusitis (Acute 11/22/13) Depressive disorder (Acute) Diabetes mellitus (Acute 06/13/12) Glaucoma (Acute) OPTICAL EXPRESSIONS Herpes simplex (Acute) Hyperlipidemia (Acute) Irritable colon (Acute) Glaucoma, open angle (Acute) O.U. Varicose veins of lower extremity (Acute) Weight loss (Acute) Impacted cerumen of right ear (Acute) syringed to clear Encounter for screening colonoscopy (Acute) Flatulence (Chronic) Prostatism (Acute) Status post inguinal hernia repair (Acute) Kidney stone (Acute) History of hemorrhoidectomy (Acute) History of cataract removal with insertion of prosthetic lens (Acute) Elevated PSA (Chronic) Skin lesion (Acute) Upper back pain (Acute) Pleural effusion, left (Acute) Recurrent pleural effusion on left (Acute) Preoperative testing (Acute) Pulmonary mass (Acute) Non-small cell lung cancer with metastasis (Acute) Skin lesion (Acute) Palliative care patient (Acute) Anxiety disorder (Acute) Hyperglycemia (Acute) COVID-19 (Acute ~09/04/21) Screening for colon cancer (Acute) Medical History Abnormal colonoscopy (~04/22/18) Dr Benny Dewey, [facility], tubular adenoma, repeat three years per Dr Reddy's recommendation.mg Pulmonary mass Surgical History Extraction of cataract B/L Hemorrhoidectomy History of colonoscopy Repair of inguinal hernia RIGHT Family History Mother , AGE 94 Depression Father , AGE 91 Heart disease Brother Heart disease Son No problems noted. Daughter No problems noted. Social History Smoking/Tobacco Use Status: Never Second Hand Exposure: Yes Smoking risk assessment performed?: Yes Alcohol Intake: current Alcohol Intake frequency: a few times a month Alcohol type: beer and wine Drug use: Never Substance use type: does not use Caregiver/Support person: No Household members: spouse Housing: house Communication Needs: None Do you need help understanding health information?: Never Pets and animals: No Sexually active: No Do you think of yourself as: straight/heterosexual Current gender identity: male What is your relationship status?: How often do you talk on the phone with friends or family?: twice per week How often do you get together with friends or relatives?: twice per week How often do you attend zoroastrian or restoration services?: 1-3 times per year Do you belong to any clubs or organized social groups?: yes Panel score (0-1 are the most socially isolated patients): 3 What type of physical activity do you participate in: walking and aerobic Julia/Hoahaoism: Agnostic Seatbelt use: always Helmet use: Yes Helmet use: always Drive intox or ride w/intox stunt driver: No Do you feel safe at home: Yes Do you feel safe in your relationship?: Yes Meds Allergies and Home Medications Allergies Allergy/AdvReac Type Severity Reaction Status Date / Time benzalkonium chloride AdvReac Severe Visual Verified 03/29/24 08:30 Disturbances Home Medications ?Medication ?Instructions ?Recorded ?Confirmed ?Type pen needle, diabetic 32 gauge x #400 ea 03/02/18 05/18/24 Rx / (BD Ultra-Fine Ankita Pen Needle) lancets 33 gauge (BD Ultra Fine #300 ea 09/18/19 05/18/24 Rx Lancets) flash glucose scanning reader #1 ea 01/10/20 05/18/24 Rx (FreeStyle [place] 14 Day [place]) blood-glucose meter (FreeStyle #1 ea 01/12/22 05/18/24 Rx Lite Meter kit) triamcinolone acetonide 0.1 % 1 applic topical DAILY 05/27/22 05/18/24 History topical cream blood sugar diagnostic #300 strips 06/03/22 05/18/24 Rx insulin admin supplies (Novopen #1 ea 08/31/22 05/18/24 Rx Echo subcutaneous) glucagon (human recombinant) 1 mg 1 mg subcut Q20M PRN hypoglycemia 06/02/23 05/18/24 Rx solution for injection #1 ea valacyclovir 500 mg tablet 500 mg PO BID PRN herpes #30 06/02/23 05/18/24 Rx (Valtrex) tab-caps dulaglutide 0.75 mg/0.5 mL 0.75 mg (0.5 mL) subcut QWEEK 28 08/26/23 05/18/24 Rx subcutaneous pen injector days #2 mL (Trulicity) metformin 500 mg tablet 500 mg PO BID 90 days #180 tabs 08/26/23 05/18/24 Rx flash glucose sensor (FreeStyle #1 ea 10/25/23 05/18/24 Rx Monroe 2 Sensor kit) insulin aspart U-100 100 unit/mL 120 unit (1.2 mL) subcut ONCE 11/29/23 05/18/24 Rx subcutaneous solution (Novolog Diabetes mellitus 1, insulin for U-100 Insulin aspart) Tandem Pump 90 days #40 mL empagliflozin 25 mg tablet 25 mg PO DAILY #90 tab-caps 12/03/23 05/18/24 Rx (Jardiance) blood-glucose sensor (Dexcom G7 #3 ea 12/13/23 05/18/24 Rx Sensor device) atorvastatin 10 mg tablet (Lipitor) 10 mg PO QPM #90 tabs 01/03/24 05/18/24 Rx levothyroxine 50 mcg capsule 50 mcg PO DAILY #90 caps 01/04/24 05/18/24 Rx losartan 50 mg tablet 50 mg PO DAILY #90 tabs 02/24/24 05/18/24 Rx insulin aspart U-100 100 unit/mL 15 unit (0.15 mL) subcut TID 30 03/20/24 05/18/24 Rx subcutaneous cartridge (Novolog days #15 mL PenFill U-100 Insulin aspart) tamsulosin 0.4 mg capsule (Flomax) 0.4 mg PO DAILY #90 caps 03/21/24 05/18/24 Rx fluoxetine 20 mg tablet 40 mg PO DAILY 05/18/24 05/18/24 History Exam Const General: cooperative, healthy appearing and no acute distress Nutritional Appearance: thin Orientation: alert, awake and oriented x3 Chest Chest: normal inspection of the chest Resp Effort & Inspection: normal respiratory effort Auscultation: clear to auscultation bilaterally, no rales, no rhonchi and no wheezes Cardio Rate: regular rate Rhythm: regular rhythm Heart Sounds: S1 normal and S2 normal GI Inspection: normal to inspection Palpation: soft, hepatosplenomegaly present, no guarding and nontender Skin General skin exam: no rashes or lesions noted Neuro General: patient alert, patient awake and patient oriented x3 Cranial Nerves: CN's II-XI intact bilaterally Extrem General: normal to inspection Results Labs 05/18/24 08:30 05/18/24 10:31 Labs: Laboratory Results - last 24 hr 05/18/24 05/18/24 05/18/24 08:30 09:19 09:35 WBC 8.24 RBC 5.29 Hgb 16.5 Hct 49.7 MCV 94 MCH 31.2 MCHC 33.2 RDW 13.2 Plt Count 185 MPV 10.2 Immature Gran % 1.2 Neutrophils % 73.4 Lymphocytes % 18.9 Monocytes % 4.7 Eosinophils % 1.1 Basophils % 0.7 Nucleated RBC % 0.0 Absolute Neutrophils 6.04 Absolute Lymphocytes 1.56 Absolute Monocytes 0.39 Absolute Eosinophils 0.09 Absolute Basophils 0.06 PT 10.2 INR 1.0 APTT 24.6 D-Dimer 435 VBG pH 7.20 L VBG pCO2 38 L VBG pO2 40 VBG HCO3 15 L VBG Total CO2 14 L VBG O2 Saturation 65 VBG Base Excess -13 L VBG Lactate 1.9 Sodium 137 Potassium 5.3 H Chloride 99 Carbon Dioxide 17.5 L Anion Gap 20.5 H BUN 43 H Creatinine 1.5 H Est GFR (CKD-EPI 2020) 47.65 Glucose 317 H Calcium 9.9 Magnesium 2.2 Total Bilirubin 0.87 AST 19 ALT 30 Alkaline Phosphatase 67 Troponin I < 4 < 4 NT-Pro-B Natriuret Pep 114 Total Protein 7.8 Albumin 4.1 Lipase 23 Urine Color Urine Clarity Urine pH Ur Specific [place] Urine Protein Urine Ketones Urine Blood Urine Nitrite Urine Bilirubin Urine Urobilinogen Ur Leukocyte Esterase Urine Glucose COVID-19 Source Nasopharynx SARS-CoV-2 (PCR) Negative Influenza Type A (PCR) Negative Influenza Type B (PCR) Negative RSV (PCR) Negative Add-On Test Request DONE 05/18/24 05/18/24 05/18/24 10:31 10:41 12:00 WBC RBC Hgb Hct MCV MCH MCHC RDW Plt Count MPV Immature Gran % Neutrophils % Lymphocytes % Monocytes % Eosinophils % Basophils % Nucleated RBC % Absolute Neutrophils Absolute Lymphocytes Absolute Monocytes Absolute Eosinophils Absolute Basophils PT INR APTT D-Dimer VBG pH VBG pCO2 VBG pO2 VBG HCO3 VBG Total CO2 VBG O2 Saturation VBG Base Excess VBG Lactate Sodium 138 Cancelled Potassium 5.5 H Cancelled Chloride 103 Cancelled Carbon Dioxide 14.3 L Cancelled Anion Gap 20.7 H Cancelled BUN 45 H Cancelled Creatinine 1.4 H Cancelled Est GFR (CKD-EPI 2020) 51.77 Cancelled Glucose 305 H Cancelled Calcium 9.1 Cancelled Magnesium Total Bilirubin AST ALT Alkaline Phosphatase Troponin I NT-Pro-B Natriuret Pep Total Protein Albumin Lipase Urine Color Yellow Urine Clarity Clear Urine pH 5.5 Ur Specific [place] 1.020 Urine Protein Negative Urine Ketones >=160 H Urine Blood Negative Urine Nitrite Negative Urine Bilirubin Negative Urine Urobilinogen 0.2 Ur Leukocyte Esterase Negative Urine Glucose 500 H COVID-19 Source SARS-CoV-2 (PCR) Influenza Type A (PCR) Influenza Type B (PCR) RSV (PCR) Add-On Test Request 05/18/24 05/18/24 05/18/24 14:00 16:00 18:00 WBC RBC Hgb Hct MCV MCH MCHC RDW Plt Count MPV Immature Gran % Neutrophils % Lymphocytes % Monocytes % Eosinophils % Basophils % Nucleated RBC % Absolute Neutrophils Absolute Lymphocytes Absolute Monocytes Absolute Eosinophils Absolute Basophils PT INR APTT D-Dimer VBG pH VBG pCO2 VBG pO2 VBG HCO3 VBG Total CO2 VBG O2 Saturation VBG Base Excess VBG Lactate Sodium Cancelled Cancelled Cancelled Potassium Cancelled Cancelled Cancelled Chloride Cancelled Cancelled Cancelled Carbon Dioxide Cancelled Cancelled Cancelled Anion Gap Cancelled Cancelled Cancelled BUN Cancelled Cancelled Cancelled Creatinine Cancelled Cancelled Cancelled Est GFR (CKD-EPI 2020) Cancelled Cancelled Cancelled Glucose Cancelled Cancelled Cancelled Calcium Cancelled Cancelled Cancelled Magnesium Total Bilirubin AST ALT Alkaline Phosphatase Troponin I NT-Pro-B Natriuret Pep Total Protein Albumin Lipase Urine Color Urine Clarity Urine pH Ur Specific [place] Urine Protein Urine Ketones Urine Blood Urine Nitrite Urine Bilirubin Urine Urobilinogen Ur Leukocyte Esterase Urine Glucose COVID-19 Source SARS-CoV-2 (PCR) Influenza Type A (PCR) Influenza Type B (PCR) RSV (PCR) Add-On Test Request 05/18/24 05/18/24 20:00 22:00 WBC RBC Hgb Hct MCV MCH MCHC RDW Plt Count MPV Immature Gran % Neutrophils % Lymphocytes % Monocytes % Eosinophils % Basophils % Nucleated RBC % Absolute Neutrophils Absolute Lymphocytes Absolute Monocytes Absolute Eosinophils Absolute Basophils PT INR APTT D-Dimer VBG pH VBG pCO2 VBG pO2 VBG HCO3 VBG Total CO2 VBG O2 Saturation VBG Base Excess VBG Lactate Sodium Cancelled Cancelled Potassium Cancelled Cancelled Chloride Cancelled Cancelled Carbon Dioxide Cancelled Cancelled Anion Gap Cancelled Cancelled BUN Cancelled Cancelled Creatinine Cancelled Cancelled Est GFR (CKD-EPI 2020) Cancelled Cancelled Glucose Cancelled Cancelled Calcium Cancelled Cancelled Magnesium Total Bilirubin AST ALT Alkaline Phosphatase Troponin I NT-Pro-B Natriuret Pep Total Protein Albumin Lipase Urine Color Urine Clarity Urine pH Ur Specific [place] Urine Protein Urine Ketones Urine Blood Urine Nitrite Urine Bilirubin Urine Urobilinogen Ur Leukocyte Esterase Urine Glucose COVID-19 Source SARS-CoV-2 (PCR) Influenza Type A (PCR) Influenza Type B (PCR) RSV (PCR) Add-On Test Request Last Vital Signs Pulse 86 05/18/24 10:31 Resp 13 05/18/24 10:31 BP 106/51 L 05/18/24 10:31 Pulse Ox 96 05/18/24 10:31 PAWSS Have you Been Recently Intoxicated or Drunk Within the Last 30 days?: No Have you Ever Experienced Previous Episodes of Alcohol Withdrawal?: No Have you ever Experienced Withdrawal Seizures?: No Have you ever Experienced Delirium Tremens(DT)s?: No Have you ever undergone Alcohol Rehabilitation Treatment (i.e, inpt ot outpatient treatment programs)?: No Have you ever Experienced Blackouts?: No Have you ever Combined Alcohol with other Downers within the last 90 days?: No Have you ever Combined Alcohol with any other Substance of Abuse during the last 90 days?: No Positive Blood Alcohol level on Presentation? [PCS.BAL]: No Evidence of Increased Autonomic Activity (i.e. HR>120, tremor, sweating, agitation, nausea)?: No Result: 0 Time Spent Time spent with Patient: 40-54 minutes Time was spent: preparing to see the patient(eg.review tests), ordering medications,tests, procedures, indepentently interpreting results, counseling the patient and care coordination
[2024-05-18] MEDS: Normal Saline 500 ML 1000 ML IV (12:26)
[2024-05-18 12:55] LABS: Anion Gap 21.2 mmol/L (3-11); BUN 44 mg/dL (7-18); CO2 14.8 mmol/L (21.0-32.0); CREATININE 1.3 mg/dL (0.70-1.30); Calcium 8.7 mg/dL (8.5-10.1); Chloride 106 mmol/L (98-107); Estimated GFR 56.58 (mL/min/1.73m2); Glucose 210 mg/dL (74-106); Potassium 4.4 mmol/L (3.5-5.1); Sodium 142 mmol/L (136-145)
[2024-05-18 13:03] LABS: Troponin I 6 ng/L (<or=76)
[2024-05-18 13:10] LABS: PHOSPHORUS 3.8 mg/dL (2.6-4.7)
[2024-05-18 15:11] LABS: Anion Gap 18.1 mmol/L (3-11); BUN 43 mg/dL (7-18); CO2 18.9 mmol/L (21.0-32.0); CREATININE 1.3 mg/dL (0.70-1.30); Calcium 8.6 mg/dL (8.5-10.1); Chloride 106 mmol/L (98-107); Estimated GFR 56.58 (mL/min/1.73m2); Glucose 112 mg/dL (74-106); Potassium 4.3 mmol/L (3.5-5.1); Sodium 143 mmol/L (136-145)
[2024-05-18] MEDS: POTASSIUM CHLORIDE/D5-0.45NACL 1,000 ML 200 MEQ IV ×2 (16:04→20:16)
[2024-05-18 16:45] LABS: Anion Gap 13.7 mmol/L (3-11); BUN 42 mg/dL (7-18); CO2 20.3 mmol/L (21.0-32.0); CREATININE 1.3 mg/dL (0.70-1.30); Calcium 8.6 mg/dL (8.5-10.1); Chloride 107 mmol/L (98-107); Estimated GFR 56.58 (mL/min/1.73m2); Glucose 108 mg/dL (74-106); Potassium 4.5 mmol/L (3.5-5.1); Sodium 141 mmol/L (136-145)
[2024-05-18 18:48] LABS: Anion Gap 10.2 mmol/L (3-11); BUN 37 mg/dL (7-18); CO2 23.8 mmol/L (21.0-32.0); CREATININE 1.4 mg/dL (0.70-1.30); Calcium 8.3 mg/dL (8.5-10.1); Chloride 105 mmol/L (98-107); Estimated GFR 51.77 (mL/min/1.73m2); Glucose 218 mg/dL (74-106); Potassium 4.3 mmol/L (3.5-5.1); Sodium 139 mmol/L (136-145)
[2024-05-18 21:08] LABS: BUN 33 mg/dL (7-18); CREATININE 1.4 mg/dL (0.70-1.30); Calcium 8.3 mg/dL (8.5-10.1); Chloride 107 mmol/L (98-107); Estimated GFR 51.77 (mL/min/1.73m2); Glucose 132 mg/dL (74-106); Potassium 3.9 mmol/L (3.5-5.1); Sodium 141 mmol/L (136-145)
[2024-05-18] MEDS: Atorvastatin 10 MG TAB PO (21:33)
[2024-05-18] MEDS: Normal Saline Flush 10 ML SYR IVP (21:34)
[2024-05-18 21:57] LABS: Osmolality Serum 314 mOsm/kg (275-295)
[2024-05-18 22:51] LABS: Anion Gap 7.4 mmol/L (3-11); BUN 33 mg/dL (7-18); CO2 24.6 mmol/L (21.0-32.0); CREATININE 1.3 mg/dL (0.70-1.30); Calcium 8.2 mg/dL (8.5-10.1); Chloride 109 mmol/L (98-107); Estimated GFR 56.58 (mL/min/1.73m2); Glucose 129 mg/dL (74-106); Sodium 141 mmol/L (136-145)
[2024-05-19] VITALS (13 sets, daily range): BP systolic 84–131; BP diastolic 44–90; PULSE 66–83; RESP 12–24; TEMP 36.7–37; O2SAT 95–98
[2024-05-19] MEDS: INSULIN REGULAR IN 0.9 % NACL 100 UNIT/100 ML BAG IVINF (00:39)
[2024-05-19] MEDS: POTASSIUM CHLORIDE/D5-0.45NACL 1,000 ML 200 MEQ IV (00:57)
[2024-05-19 02:30] LABS: Anion Gap 8.6 mmol/L (3-11); BUN 32 mg/dL (7-18); CO2 24.4 mmol/L (21.0-32.0); CREATININE 1.2 mg/dL (0.70-1.30); Calcium 8.5 mg/dL (8.5-10.1); Chloride 109 mmol/L (98-107); Estimated GFR 62.29 (mL/min/1.73m2); Glucose 96 mg/dL (74-106); Potassium 4.3 mmol/L (3.5-5.1); Sodium 142 mmol/L (136-145)
[2024-05-19] MEDS: Normal Saline 1,000 ML 125 ML IV (03:37)
[2024-05-19] MEDS: Levothyroxine 50 MCG TAB PO (05:55)
[2024-05-19 06:42] LABS: Anion Gap 9.4 mmol/L (3-11); BUN 30 mg/dL (7-18); CO2 20.6 mmol/L (21.0-32.0); CREATININE 1.3 mg/dL (0.70-1.30); Calcium 8.3 mg/dL (8.5-10.1); Chloride 107 mmol/L (98-107); Estimated GFR 56.58 (mL/min/1.73m2); Glucose 324 mg/dL (74-106); Potassium 5.3 mmol/L (3.5-5.1); Sodium 137 mmol/L (136-145)
[2024-05-19] MEDS: Insulin Aspart 300 UNITS/3 ML PEN SC ×2 (08:22→11:38)
[2024-05-19] MEDS: FLUoxetine 20 MG CAP 40 MG PO (08:26)
[2024-05-19] MEDS: Tamsulosin 0.4 MG CAPCR PO (08:26)
[2024-05-19] MEDS: Losartan 50 MG TAB PO (08:26)
[2024-05-19] MEDS: Normal Saline Flush 10 ML SYR IVP ×2 (08:27→10:03)
--- NOTE | 2024-05-19 09:22 | PDOC.CMIN ---
Date of service: 05/19/24 Time of Service: 09:22 Care Management Initial Assmt Advance Directives Advance Directives: Do you have an Advance Directive: Y 12/09/23 13:40 AD On File at [facility]: Y 12/09/23 13:40 Date Asked 10/02/20 05/18/24 07:57 AD Date Reviewed 05/18/24 05/18/24 07:57 COLST On File at [facility] Yes 05/18/24 07:57 COLST Date Scanned 01/29/21 05/18/24 07:57 Code Status Resuscitation Status DNR Care Team Visit Care Team Role Provider Type Paxton Segura MD Primary Care Provider [facility] STAFF PHYSICIAN Saima Tatum Emergency Provider NURSE PRACTITIONER Dieudonne Trent DO Admit Provider [facility] STAFF PHYSICIAN Attending Provider Social Determinants of Health Screening Social Determinants of Health last assessed: 05/19/24 Will the Patient Participate in the Screening?: Yes Do you worry about having a steady place to live?: no Problems where you live: no known problems In the past 12 months, have you had to go without electric, gas, oil or water in your home?: no Have you or anyone in your house had to go without enough food to eat?: no Has lack of transportation kept you from medical appointments or from doing things needed for daily living?: no Has anyone in your life made you feel unsafe or unsupported?: no How hard is it for you to pay for the very basics like food, housing, medical care, and heating? Would you say it is:: Not hard at all Do you want help finding or keeping work or a job?: I do not need or want help If for any reason you need help with day-to-day activities such as bathing, preparing meals, shopping, managing finances, etc., do you get the help you need?: I don?t need any help How often do you feel lonely or isolated from those around you?: Sometimes Do you speak a language other than [place] at home?: No Does the patient want assistance with any of the above?: No Health Related Social Needs Health related social needs: feeling lonely/isolated (Z60.8) PFSH All Active Problems (Updated 05/18/24 @ 18:06 by Saima M Anastacia Gold) Chest pain (Acute) DKA (diabetic ketoacidosis) (Acute) DKA (diabetic ketoacidosis) (Acute) Hypothyroidism (Chronic) BPH w urinary obs/LUTS (Acute) Diabetes mellitus type 1 (Acute) Hypoglycemia (Acute) Neuropathy (Acute) Left flank pain (Acute) Hearing loss (Acute) Rectal polyp (Acute) Chronic sinusitis (Acute 11/22/13) Depressive disorder (Acute) Diabetes mellitus (Acute 06/13/12) Glaucoma (Acute) OPTICAL EXPRESSIONS Herpes simplex (Acute) Hyperlipidemia (Acute) Irritable colon (Acute) Glaucoma, open angle (Acute) O.U. Varicose veins of lower extremity (Acute) Weight loss (Acute) Impacted cerumen of right ear (Acute) syringed to clear Encounter for screening colonoscopy (Acute) Flatulence (Chronic) Prostatism (Acute) Status post inguinal hernia repair (Acute) Kidney stone (Acute) History of hemorrhoidectomy (Acute) History of cataract removal with insertion of prosthetic lens (Acute) Elevated PSA (Chronic) Skin lesion (Acute) Upper back pain (Acute) Pleural effusion, left (Acute) Recurrent pleural effusion on left (Acute) Preoperative testing (Acute) Pulmonary mass (Acute) Non-small cell lung cancer with metastasis (Acute) Skin lesion (Acute) Palliative care patient (Acute) Anxiety disorder (Acute) Hyperglycemia (Acute) COVID-19 (Acute ~09/04/21) Screening for colon cancer (Acute) Medical History Abnormal colonoscopy (~04/22/18) Dr Benny Dewey, [facility], tubular adenoma, repeat three years per Dr Reddy's recommendation.mg Pulmonary mass Surgical History Extraction of cataract B/L Hemorrhoidectomy History of colonoscopy Repair of inguinal hernia RIGHT Family History Mother , AGE 94 Depression Father , AGE 91 Heart disease Brother Heart disease Son No problems noted. Daughter No problems noted. Social History Smoking/Tobacco Use Status: Never Second Hand Exposure: Yes Smoking risk assessment performed?: Yes Alcohol Intake: current Alcohol Intake frequency: a few times a month Alcohol type: beer and wine Drug use: Never Substance use type: does not use Caregiver/Support person: No Household members: spouse Housing: house Communication Needs: None Do you need help understanding health information?: Never Pets and animals: No Sexually active: No Do you think of yourself as: straight/heterosexual Current gender identity: male What is your relationship status?: How often do you talk on the phone with friends or family?: twice per week How often do you get together with friends or relatives?: twice per week How often do you attend scientology or confucianist services?: 1-3 times per year Do you belong to any clubs or organized social groups?: yes Panel score (0-1 are the most socially isolated patients): 3 What type of physical activity do you participate in: walking and aerobic Julia/Mormonism: Agnostic Seatbelt use: always Helmet use: Yes Helmet use: always Drive intox or ride w/intox backhaul driver: No Do you feel safe at home: Yes Do you feel safe in your relationship?: Yes
[2024-05-19] MEDS: Docusate Sodium 100 MG CAP (10:01)
[2024-05-19 10:36] LABS: Anion Gap 10.6 mmol/L (3-11); BUN 29 mg/dL (7-18); CO2 21.4 mmol/L (21.0-32.0); CREATININE 1.4 mg/dL (0.70-1.30); Calcium 8.7 mg/dL (8.5-10.1); Chloride 107 mmol/L (98-107); Estimated GFR 51.77 (mL/min/1.73m2); Glucose 256 mg/dL (74-106); Potassium 4.3 mmol/L (3.5-5.1); Sodium 139 mmol/L (136-145)
--- NOTE | 2024-05-19 12:10 | W.PM.DS.N ---
Date of service: 05/19/24 Time of Service: 12:12 DS: Diagnosis Discharge Diagnosis (1) DKA (diabetic ketoacidosis): Status: Acute (2) Hyperlipidemia: Status: Acute (3) Hypothyroidism: Status: Chronic Discharge Plan Disposition Patient Disposition: Home Condition: Stable Discharge Details Reason For Visit: DKA Admit Date/Time: 05/18/24 12:53 Admit Provider: Dieudonne Trent Attending Provider: Dieudonne Trent Primary Care Provider: Paxton Segura Hospital Course Hospital Course: Per H+P: This is a 78 yo male with pmhx: IDDM, hypoerlipidemia, BPH, NSCLCa with mets, anxiety that presents today c/o CP. Patient is pleasant and a good historian. Tells me that he was previouisly on an insulin pump which controlled his DM well. However, his pump broke and started using injectable insulin. He had two defective dexacom units and changed over to using his old glucometer. Had suspicions that it may not have been accurate. Starting this morning he had symptoms that included r sided chest pain. Radiated down his arm and a little to his back. He also noted dizziness and had 2 episodes of vomiting with some residual nausea. W/U included CT that was negative. However, he was found to be in DKA with AG = 20, BG = 305. He was started on insulin gtt with some improvement in his symptoms and he was sleeping when I arrived to examine him. He tells me the CP and nausea has completely resolved. Patient now being admitted to ICU for treatment of DKA. Patient remained on insulin gtt overnight per protocol.Became euglycemic and was started on D5W. Eventually gap closed and patient was started on mealtime insulin dosing. Did well with this and was otherwise feeling fine. Diet advanced to carb controlled which he tolerated well. Plasn to dsicharge today. Patient will return to using his insulin pump but needs a functional Dexcom G7 sensor which we will prescribe for him. To continue other meds as before. If patient has further issues, can return to ER but otherwise can follow with PCP and DM contact as outpatient. Home Meds and New Rx's Prescriptions: Continued (DME) FreeStyle [place] 14 Day [place] Misc See Rx Instructions .ROUTE .MEDSUPPLY Qty: 1 0RF Rx Instructions: As directed glucagon (human recombinant) 1 mg recon soln 1 mg SC Q20M PRN (Reason: hypoglycemia) Qty: 1 5RF Rx Instructions: until target blood sugar attained valacyclovir [Valtrex] 500 mg tablet 500 mg PO BID PRN (Reason: herpes) Qty: 30 0RF levothyroxine 50 mcg capsule 50 mcg PO DAILY Qty: 90 3RF insulin aspart U-100 [Novolog U-100 Insulin aspart] 100 unit/mL solution 120 unit subcut ONCE 90 Days Qty: 40 4RF Rx Instructions: Inject 120 units into Tandem TSlim 2 Pump Bladder every 3 days (DME) pen needle, diabetic [BD Ultra-Fine Ankita Pen Needle] 32 gauge x / needle 1 ea Miscellaneous DAILY Qty: 400 4RF Rx Instructions: For use with pens QID (DME) lancets [BD Ultra Fine Lancets] 33 gauge misc See Dose Instructions .ROUTE .MEDSUPPLY Qty: 300 3RF Dose Instruction: As directed Rx Instructions: As directed TID triamcinolone acetonide 0.1 % cream 1 applic topical DAILY metformin 500 mg tablet 500 mg PO BID 90 Days Qty: 180 4RF Rx Instructions: Take one 500 mg tablet by mouth twice daily Trulicity 0.75 mg/0.5 mL pen injector 0.75 mg subcut QWEEK MDD 0.75 28 Days Qty: 2 12RF Rx Instructions: Inject 0.75 mg subcutaneously once weekly as directed tamsulosin [Flomax] 0.4 mg capsule 0.4 mg PO DAILY Qty: 90 3RF (DME) blood-glucose meter [FreeStyle Lite Meter] Kit See Dose Instructions .ROUTE .MEDSUPPLY Qty: 1 0RF Dose Instruction: As directed Rx Instructions: As directed (DME) blood sugar diagnostic Strip 1 strip Miscellaneous BID Qty: 300 4RF Rx Instructions: Dx: E11.9 test TID (DME) Novopen Echo Insulin Pen See Rx Instructions .Route Qty: 1 0RF Rx Instructions: As directed (DME) FreeStyle [place] 2 Sensor Kit See Rx Instructions .ROUTE .MEDSUPPLY Qty: 1 11RF Rx Instructions: As directed Jardiance 25 mg tablet 25 mg PO DAILY Qty: 90 3RF atorvastatin [Lipitor] 10 mg tablet 10 mg PO QPM Qty: 90 3RF losartan 50 mg tablet 50 mg PO DAILY Qty: 90 3RF insulin aspart U-100 [Novolog PenFill U-100 Insulin] 100 unit/mL cartridge 15 unit subcut TID 30 Days Qty: 15 4RF Rx Instructions: Inject 15 units subcutaneously 3x daily as directed fluoxetine 20 mg tablet 40 mg PO DAILY Rx Instructions: TAKE TWO TABLETS BY MOUTH EVERY DAY (DME) Dexcom G7 Sensor Device See Rx Instructions .Route Qty: 1 0RF Rx Instructions: Dexcom G7 sensor to be used with Tandem Insulin Pump. Discharge Instructions Referrals: Paxton Segura MD [Primary Care Provider] - Activity:: Activity as Tolerated Equipment/Supplies:: Blood Glucose Monitor Diet:: Carb Counting Discharge Orders Discharge Orders: Discharge Order (Routine); Ordered 05/19/24 Ordered By: Dieudonne Trent DS: Summary Time Spent with Patient providing and/or coordinating discharge services: Greater than 30 minutes Status at Discharge Functional status at discharge: independent ambulation Overall status at discharge: patient is back to baseline Mental Status: mental status grossly normal Speech and Movement: speech and movement normal Mood: congruent mood Affect: normal affect Quality:SDOH Health Related Social Needs: Health related social needs feeling lonely/isolated (Z60.8) Exam Const General: cooperative, comfortable and no acute distress Orientation: alert, awake and oriented x3 HENMT Head: normal to inspection Chest Chest: normal inspection of the chest Resp Effort & Inspection: normal respiratory effort Auscultation: clear to auscultation bilaterally Cardio Rate: regular rate Rhythm: regular rhythm Heart Sounds: S1 normal and S2 normal GI Inspection: normal to inspection Palpation: soft Auscultation: normal bowel sounds Skin General skin exam: no rashes or lesions noted Neuro Cranial Nerves: CN's II-XI intact bilaterally Extrem General: normal to inspection Psych Mental Status: mental status grossly normal Speech and Movement: speech and movement normal Mood: congruent mood Affect: normal affect DS: Data Vitals/I&O Vitals and I&O: Vital Signs Temperature 37.0 C 05/19/24 08:01 Temperature Source Tympanic 05/18/24 21:30 Pulse 74 05/19/24 10:01 Pulse 76 05/19/24 10:01 Respiratory Rate 16 05/19/24 10:01 Respiratory Effort Normal, Non-Labored 05/18/24 14:26 Respiratory Depth Normal 05/18/24 14:26 Respiratory Pattern Normal 05/18/24 14:26 Blood Pressure 114/66 05/19/24 10:01 Blood Pressure Mean 80 05/19/24 10:01 Blood Pressure Position Supine 05/18/24 14:26 Pulse Oximetry 98 05/19/24 10:01 Oxygen Delivery Method Room Air 05/18/24 14:26 Oxygen Flow Rate 0 05/18/24 14:26 Pain Level 0 05/18/24 14:26 Intake & Output 05/18/24 05/19/24 05/19/24 23:59 11:59 23:59 Intake Total 4052.132 / 4058.732 2755.882 / 2755.882 Output Total 1450 / 1450 1900 / 1900 Balance 2602.132 / 2608.732 855.882 / 855.882 Weight 60.6 kg 63.6 kg Intake: IV 3412.132 / 3418.732 2275.882 / 2275.882 Oral 640 / 640 480 / 480 Output: Urine 1450 / 1450 1900 / 1900 Other: Urine Color Yellow Pale Urine Appearance Clear Clear Urine Odor Normal Normal Data Completed and Pending Labs on day of discharge: Labs from last 24 hours 05/19/24 05/19/24 05/19/24 10:20 06:14 02:15 Sodium 139 137 142 Potassium 4.3 D 5.3 H D 4.3 Chloride 107 107 109 H Carbon Dioxide 21.4 20.6 L 24.4 Anion Gap 10.6 9.4 8.6 BUN 29 H 30 H 32 H Creatinine 1.4 H 1.3 1.2 Est GFR (CKD-EPI 2020) 51.77 56.58 62.29 Glucose 256 H 324 H 96 Serum Osmolality Calcium 8.7 8.3 L 8.5 Phosphorus Troponin I 05/18/24 05/18/24 05/18/24 22:30 20:50 18:25 Sodium 141 141 139 Potassium 4.0 3.9 4.3 Chloride 109 H 107 105 Carbon Dioxide 24.6 25.0 23.8 Anion Gap 7.4 9.0 10.2 BUN 33 H 33 H 37 H Creatinine 1.3 1.4 H 1.4 H Est GFR (CKD-EPI 2020) 56.58 51.77 51.77 Glucose 129 H 132 H 218 H Serum Osmolality Calcium 8.2 L 8.3 L 8.3 L Phosphorus Troponin I 05/18/24 05/18/24 05/18/24 16:27 14:45 12:39 Sodium 141 143 Cancelled Potassium 4.5 4.3 Cancelled Chloride 107 106 Cancelled Carbon Dioxide 20.3 L 18.9 L Cancelled Anion Gap 13.7 H 18.1 H Cancelled BUN 42 H 43 H Cancelled Creatinine 1.3 1.3 Cancelled Est GFR (CKD-EPI 2020) 56.58 56.58 Cancelled Glucose 108 H 112 H Cancelled Serum Osmolality Calcium 8.6 8.6 Cancelled Phosphorus Troponin I 05/18/24 05/18/24 05/18/24 12:29 12:28 08:30 Sodium 142 Potassium 4.4 D Chloride 106 Carbon Dioxide 14.8 L Anion Gap 21.2 H BUN 44 H Creatinine 1.3 Est GFR (CKD-EPI 2020) 56.58 Glucose 210 H Serum Osmolality 314 H Calcium 8.7 Phosphorus 3.8 Troponin I 6 PFSH All Active Problems (Updated 05/18/24 @ 18:06 by Saima Tatum) Chest pain (Acute) DKA (diabetic ketoacidosis) (Acute) DKA (diabetic ketoacidosis) (Acute) Hypothyroidism (Chronic) BPH w urinary obs/LUTS (Acute) Diabetes mellitus type 1 (Acute) Hypoglycemia (Acute) Neuropathy (Acute) Left flank pain (Acute) Hearing loss (Acute) Rectal polyp (Acute) Chronic sinusitis (Acute 11/22/13) Depressive disorder (Acute) Diabetes mellitus (Acute 06/13/12) Glaucoma (Acute) OPTICAL EXPRESSIONS Herpes simplex (Acute) Hyperlipidemia (Acute) Irritable colon (Acute) Glaucoma, open angle (Acute) O.U. Varicose veins of lower extremity (Acute) Weight loss (Acute) Impacted cerumen of right ear (Acute) syringed to clear Encounter for screening colonoscopy (Acute) Flatulence (Chronic) Prostatism (Acute) Status post inguinal hernia repair (Acute) Kidney stone (Acute) History of hemorrhoidectomy (Acute) History of cataract removal with insertion of prosthetic lens (Acute) Elevated PSA (Chronic) Skin lesion (Acute) Upper back pain (Acute) Pleural effusion, left (Acute) Recurrent pleural effusion on left (Acute) Preoperative testing (Acute) Pulmonary mass (Acute) Non-small cell lung cancer with metastasis (Acute) Skin lesion (Acute) Palliative care patient (Acute) Anxiety disorder (Acute) Hyperglycemia (Acute) COVID-19 (Acute ~09/04/21) Screening for colon cancer (Acute) Medical History Abnormal colonoscopy (~04/22/18) Dr Benny Dewey, [facility], tubular adenoma, repeat three years per Dr Reddy's recommendation.mg Pulmonary mass Surgical History Extraction of cataract B/L Hemorrhoidectomy History of colonoscopy Repair of inguinal hernia RIGHT Family History Mother , AGE 94 Depression Father , AGE 91 Heart disease Brother Heart disease Son No problems noted. Daughter No problems noted. Social History Smoking/Tobacco Use Status: Never Second Hand Exposure: Yes Smoking risk assessment performed?: Yes Alcohol Intake: current Alcohol Intake frequency: a few times a month Alcohol type: beer and wine Drug use: Never Substance use type: does not use Caregiver/Support person: No Household members: spouse Housing: house Communication Needs: None Do you need help understanding health information?: Never Pets and animals: No Sexually active: No Do you think of yourself as: straight/heterosexual Current gender identity: male What is your relationship status?: How often do you talk on the phone with friends or family?: twice per week How often do you get together with friends or relatives?: twice per week How often do you attend rastafari or pentecostal services?: 1-3 times per year Do you belong to any clubs or organized social groups?: yes Panel score (0-1 are the most socially isolated patients): 3 What type of physical activity do you participate in: walking and aerobic Julia/Confucianist: Agnostic Seatbelt use: always Helmet use: Yes Helmet use: always Drive intox or ride w/intox tow motor driver: No Do you feel safe at home: Yes Do you feel safe in your relationship?: Yes Time Spent with Patient Time Spent with Patient: <45 minutes Time was spent: preparing to see the patient(eg.review tests), obtaining and/or reviewing separately otained hiistory, ordering medications,tests, procedures, referring, communicating with other health resident care aide, counseling the patient and care coordination
--- NOTE | 2024-05-19 14:56 | CMPROGNOTE_ITS ---
Date of service: 05/19/24 Time of Service: 14:56 Care Management Progress Note Progress Note Text Progress Note Text: Walt was fully dressed ready to leave the unit when CM attempted to meet with him. He was admitted yesterday with DKA but by this morning his Insulin drip had been discontinued and he was feeling much better. He had an issue with his glucometer but that was resolved. He will be discharged home and will follow up with his PCP. Chandana's Discharge Potential Discharge Needs: PCP F/U Appt Anticipated Barriers to Discharge: None Identified Patient/Family Education Needs: Review discharge instructions, discuss Ask Me Three Transportation: Private vehicle Social Determinants of Health Screening Social Determinants of Health last assessed: 05/19/24 Will the Patient Participate in the Screening?: Yes Do you worry about having a steady place to live?: no Problems where you live: no known problems In the past 12 months, have you had to go without electric, gas, oil or water in your home?: no Have you or anyone in your house had to go without enough food to eat?: no Has lack of transportation kept you from medical appointments or from doing things needed for daily living?: no Has anyone in your life made you feel unsafe or unsupported?: no How hard is it for you to pay for the very basics like food, housing, medical care, and heating? Would you say it is:: Not hard at all Do you want help finding or keeping work or a job?: I do not need or want help If for any reason you need help with day-to-day activities such as bathing, preparing meals, shopping, managing finances, etc., do you get the help you need?: I don?t need any help How often do you feel lonely or isolated from those around you?: Sometimes Do you speak a language other than Azeri at home?: No Does the patient want assistance with any of the above?: No Health Related Social Needs Health related social needs: feeling lonely/isolated (Z60.8)
== END 2024-05-19 13:43 | disposition home or self-care (01) ==
LOC: ER 08:02 → ICU 15:20
PROVIDERS: Family Medicine; Admitting Provider Hospitalist; Emergency Provider Nurse Practitioner Family; PCP Family Medicine; Responsible Provider Hospitalist; Visit Provider Hospitalist
DX: E10.10 Type 1 diabetes mellitus with ketoacidosis without coma (principal); C34.32 Malignant neoplasm of lower lobe, left bronchus or lung; C79.9 Secondary malignant neoplasm of unspecified site; N13.8 Other obstructive and reflux uropathy; E78.5 Hyperlipidemia, unspecified; E03.9 Hypothyroidism, unspecified; R07.89 Other chest pain; Z79.4 Long term (current) use of insulin; F41.9 Anxiety disorder, unspecified; R11.2 Nausea with vomiting, unspecified; N40.1 Benign prostatic hyperplasia with lower urinary tract symptoms; F32.A Depression, unspecified; K58.9 Irritable bowel syndrome, unspecified; H40.1130 Primary open-angle glaucoma, bilateral, stage unspecified; E10.40 Type 1 diabetes mellitus with diabetic neuropathy, unspecified
CPT/HCPCS: 00123; 36415; 36416; 80048; 80053; 82805; 82962; 83690; 87637; 93005; 96361; 96365; 96366; 96375; 99285; 71046; 81003; 83605; 83735; 83880; 83930; 84100; 84484; 85025; 85379; 85610; 85730; 93010; 99223; 99239; G0378; J1815; J2405

== ENCOUNTER 2024-06-19 01:02 | Outpatient (CLI) | payer MEDICARE, SELFPAY ==
--- NOTE | 2024-06-19 | DI.CT_ITS ---
Exam(s) CT CHEST W EXAM: CT CHEST W CLINICAL HISTORY: Primary malignant neoplasm, LLL, C34.32; metastatic NSCLC; restaging TECHNIQUE: Imaging Protocol: Axial computed tomography images with coronal and sagittal reformatted images were created and reviewed. Computer aided detection (CAD) was utilized. CONTRAST MATERIAL: Intravenous: Omnipaque 350Contrast volume:70 mL. COMPARISON: CT CT CHEST W from 08/19/[address] CHEST/ABD/PEL W from 12/21/2023 CR XR CHEST 2V PA LATERAL from 05/18/2024 FINDINGS: Tracheobronchial tree: Patent where visualized. No evidence of bronchiectasis. Pulmonary parenchyma: There are calcified granuloma present. There are diffuse predominantly periphe ral pulmonary fibrosis changes in the lungs. No focal consolidating infiltrates are seen. No new pu lmonary nodules or masses are seen. The masslike area in the medial aspect of the left lung base is unchanged. Mediastinum and Krissy: No dominant adenopathy or fluid collection. The esophagus is unremarkable. Thyroid gland: Unremarkable. Pleura: There is persistent mild pleural thickening or tiny left pleural effusion. No right pleural effusion. No pneumothorax. Heart: The heart is not dilated. Three vessel coronary artery calcification is present. No pericardi al effusion. Aorta: The ascending thoracic aorta measures 4.1 x 3.8 cm. Atherosclerotic calcification is present. There is no evidence of dissection. Pulmonary arteries: Due to the timing of the bolus, pulmonary artery opacification is suboptimal sriram pherally. No large central pulmonary embolism is present. Upper abdomen: There is a simple cyst in the left kidney. No follow-up is recommended. Lymph nodes: Within normal limits. Bones: Within normal limits for the patient's age. Soft tissues: Unremarkable. IMPRESSION: 1. No acute pulmonary process. 2. Stable masslike area in the medial aspect of the left lung base. 3. Stable pulmonary fibrosis. RADIATION DOSE DELIVERED: 103.46mGy.cm Total DLP DATA REPOSITORY: All CT scans at this facility are submitted to the National Radiology Data Registry (NRDR) Dose Index Registry (DIR) with the [employer] (A[employer]). RADIATION OPTIMIZATION: All CT scans at this facility use at least one of these dose optimization te chniques: automated exposure control; mA and/or kV adjustment per patient size (includes targeted exa ms where dose is matched to clinical indication); or iterative reconstruction.
[2024-06-19 09:27] LABS: Abs Immature Grans 0.04 10^3/uL (0.0-0.06); Absolute Basophil Count 0.07 10^3/uL (0.0-0.2); Absolute Eosinophil Count 0.22 10^3/uL (0.0-0.7); Absolute Lymphocyte Count 1.55 10^3/uL (1.2-3.4); Absolute Monocyte Count 0.63 10^3/uL (0.1-0.8); Absolute Neutrophil Count 4.13 10^3/uL (1.2-6.7); Basophils % 1.1 %; Eosinophils % 3.3 %; HCT 44.8 % (40.0-50.0); HGB 14.8 g/dL (13.5-17.5); Immature Grans % 0.6 %; Lymphocytes % 23.3 %; MCV 94 fL (80-95); MPV 10.4 fL (8.0-11.0); Monocytes % 9.5 %; Neutrophils % 62.2 %; Platelet Count 163 10^3/uL (130-400); RBC 4.77 10^6/uL (4.36-5.78); RDW 13.2 % (11.8-14.1); RDW-SD 45.4 fL; WBC 6.64 10^3/uL (4.4-10.8)
[2024-06-19 09:44] LABS: ALT 23 U/L (16-63); AST 16 U/L (15-37); Albumin 3.5 g/dL (3.4-5.0); Alkaline Phosphatase 55 U/L (46-116); Anion Gap 4.2 mmol/L (3-11); BUN 28 mg/dL (7-18); Bilirubin, Total 0.7 mg/dL (0.2-1.0); CO2 30.8 mmol/L (21.0-32.0); Calcium 9.2 mg/dL (8.5-10.1); Chloride 105 mmol/L (98-107); Estimated GFR 77.52 (mL/min/1.73m2); Glucose 209 mg/dL (74-106); Potassium 4.1 mmol/L (3.5-5.1); Sodium 140 mmol/L (136-145); Total Protein 6.9 g/dL (6.4-8.2)
[2024-06-19] MEDS: Normal Saline - Diluent 50 ML VIAL IJ (09:55)
[2024-06-19] MEDS: Omnipaque 350 MG/ML 100 ML BTL 70 ML IJ (09:56)
[2024-06-19 10:11] LABS: Vitamin B12 1046 pg/mL (193-986)
== END 2024-06-19 01:22 ==
LOC: DI 01:03
PROVIDERS: Family Medicine; PCP Family Medicine; Visit Provider Internal Medicine Medical Oncology
DX: E53.8 Deficiency of other specified B group vitamins (principal); C34.32 Malignant neoplasm of lower lobe, left bronchus or lung
CPT/HCPCS: 80053; 71260; 82607; 85025; J3490

== ENCOUNTER → 2024-10-05 14:23 | Outpatient (BNVA) | payer MEDICARE, SELFPAY | PROVIDERS: PCP Family Medicine; Referring Provider Family Medicine; Visit Provider Nurse Practitioner Gerontology | DX: N40.1 Benign prostatic hyperplasia with lower urinary tract symptoms (principal); N13.8 Other obstructive and reflux uropathy; R97.20 Elevated prostate specific antigen [PSA]; R39.9 Unspecified symptoms and signs involving the genitourinary system | CPT/HCPCS: 99214; 81002; 51798 ==

== ENCOUNTER 2024-10-05 16:14 | Outpatient (CLI) | payer MEDICARE, SELFPAY ==
[2024-10-05 22:49] LABS: PSA, Diagnostic 5.2 ng/mL (<=6.5)
== END 2024-10-05 16:15 | disposition home or self-care (01) ==
LOC: LBO 16:15
PROVIDERS: PCP Family Medicine; Visit Provider Nurse Practitioner Gerontology
DX: N40.1 Benign prostatic hyperplasia with lower urinary tract symptoms (principal); N13.8 Other obstructive and reflux uropathy
CPT/HCPCS: 36415; 84153

== ENCOUNTER 2024-11-30 09:34 | Outpatient (CLI) | payer MEDICARE, SELFPAY ==
[2024-11-30 10:02] LABS: Hemoglobin A1C 7.9 % (<5.7)
[2024-11-30 10:32] LABS: COMMENT (LAB VIEW ONLY) 82.08 mg/dL; Microalb ug/mg Crea 10.7 ug/mg Cr
[2024-11-30 10:43] LABS: Calculated LDL 83 mg/dL (<100); Cholesterol 165 mg/dL (<200); HDL Cholesterol 74 mg/dL (>or=40); TSH (W/Ref FT4) 4.98 uIU/mL (0.36-3.74); Triglyceride 44 mg/dL (<150)
== END 2024-11-30 09:35 | disposition home or self-care (01) ==
LOC: LBO 09:34
PROVIDERS: PCP Family Medicine; Visit Provider Family Medicine
DX: E03.9 Hypothyroidism, unspecified (principal); E11.9 Type 2 diabetes mellitus without complications
CPT/HCPCS: 36415; 80061; 82043; 82570; 83036; 84439; 84443

== ENCOUNTER 2024-12-18 02:45 | Outpatient (CLI) | payer MEDICARE, SELFPAY ==
[2024-12-18 08:48] LABS: Abs Immature Grans 0.05 10^3/uL (0.0-0.06); HCT 47.3 % (40.0-50.0); HGB 15.9 g/dL (13.5-17.5); Immature Grans % 0.8 %; MCH 30.2 pg (27.0-33.0); MCHC 33.6 % (32.0-36.0); MCV 90 fL (80-95); MPV 9.8 fL (8.0-11.0); Platelet Count 222 10^3/uL (130-400); RBC 5.27 10^6/uL (4.36-5.78); RDW 13.0 % (11.8-14.1); RDW-SD 42.7 fL; WBC 6.66 10^3/uL (4.4-10.8)
[2024-12-18 09:22] LABS: ALT 23 U/L (16-63); AST 16 U/L (15-37); Albumin 4.1 g/dL (3.4-5.0); Alkaline Phosphatase 69 U/L (46-116); Anion Gap 8.1 mmol/L (3-11); BUN 21 mg/dL (7-18); Bilirubin, Total 0.8 mg/dL (0.2-1.0); CO2 29.9 mmol/L (21.0-32.0); Calcium 9.9 mg/dL (8.5-10.1); Chloride 100 mmol/L (98-107); Estimated GFR 61.90 (mL/min/1.73m2); Glucose 249 mg/dL (74-106); Potassium 4.8 mmol/L (3.5-5.1); Sodium 138 mmol/L (136-145); Total Protein 8.2 g/dL (6.4-8.2)
[2024-12-18 09:35] LABS: TSH (W/Ref FT4) 4.26 uIU/mL (0.36-3.74)
[2024-12-18] MEDS: Omnipaque 350 MG/ML 100 ML BTL IJ (09:39)
[2024-12-18] MEDS: Normal Saline - Diluent 50 ML VIAL IJ (09:39)
[2024-12-18] MEDS: Normal Saline Flush 10 ML SYR IVP (09:40)
--- NOTE | 2024-12-18 09:45 | DI.CT_ITS ---
Exam(s) CT CHEST W EXAM: CT CHEST W CLINICAL HISTORY: LT LOWER LOBE LUNG CANCER C34.32 STAGE IV ON TREATMENT BREAK SURVEILLANCE. TECHNIQUE: Multi planar reconstructions were performed. CONTRAST MATERIAL: Omnipaque 350; indeed cc COMPARISON: CT CT CHEST/ABD/PEL W from 12/21/2023 CR XR CHEST 2V PA LATERAL from 05/18/[address] CHEST W from 06/19/2024 FINDINGS: CHEST: LUNGS: Again noted is diffuse bilateral pulmonary fibrosis pattern and there is slight bilateral lung retraction from the pleural surface again noted, similar to previous.. Thickening of the mid-upper aspect of the left major fissure is again noted as are some mild increased markings in the superior segment the right lower lobe, similar to previous. No new right lung findings. The previously described mass in the medial aspect of the base of the left lower lobe appears similar to previous, unchanged in size.. No new masses. No pleural effusions. MEDIASTINUM: There is no hilar nor mediastinal adenopathy. Visualized thyroid unremarkable. Pectus excavatum noted. CARDIAC: Heart size is normal. There is no pericardial effusion.Diameter of the ascending thoracic aorta is mildly prominent, measuring 3.8 cm. No dissection. Aortic arch and descending thoracic aorta exhibit upper normal diameters. VISUALIZED UPPER ABDOMEN:There are no significant adrenal masses. No ascites. OSSEOUS: No fractures nor significant osseous lesions.. IMPRESSION: 1. Continued stable appearance of the previously described mass in the medial aspect of the left lung base. No new focal lung findings nor pleural effusions. No new lymphadenopathy evident. 2. Diffuse bilateral pulmonary fibrosis is again noted. RADIATION DOSE DELIVERED: 125.11mGy.cm Total DLP DATA REPOSITORY: All CT scans at this facility are submitted to the National Radiology Data Registry (NRDR) Dose Index Registry (DIR) with the [employer] (ACR). RADIATION OPTIMIZATION: All CT scans at this facility use at least one of these dose optimization techniques: automated exposure control; mA and/or kV adjustment per patient size (includes targeted exams where dose is matched to clinical indication); or iterative reconstruction.
== END 2024-12-18 03:05 ==
PROVIDERS: Nurse Practitioner Family; PCP Family Medicine; Visit Provider Internal Medicine Medical Oncology
DX: E03.9 Hypothyroidism, unspecified (principal); C34.32 Malignant neoplasm of lower lobe, left bronchus or lung
CPT/HCPCS: 36415; 80053; 71260; 84439; 84443; 85025; J3490

== ENCOUNTER → 2025-02-22 11:12 | Outpatient (BNVA) | payer MEDICARE, SELFPAY | PROVIDERS: PCP Family Medicine; Referring Provider Family Medicine; Visit Provider Physical Therapy Assistant | DX: Z12.11 Encounter for screening for malignant neoplasm of colon (principal); Z86.0101 Personal history of adenomatous and serrated colon polyps | CPT/HCPCS: S0285 ==

== ENCOUNTER 2025-03-07 07:38 | Day surgery (SDC) | payer MEDICARE, SELFPAY ==
[2025-03-07 08:02] VITALS: BP 137/78; PULSE 83; RESP 16; TEMP 36.3; O2SAT 97
[2025-03-07] MEDS: Lactated Ringers 1,000 ML 80 ML IV (08:30)
--- NOTE | 2025-03-07 09:20 | ANES.PREOP_ITS ---
General Info Date of Service Date Performed: 03/07/25 Height: 5 ft 9 in Weight: 67.7 kg Body Mass Index (BMI): 22.0 Surgical Procedure: Operation Date: 03/07/25 09:05 Proposed Procedure Side Surgeon p Colonoscopy Salome Irvin MD Actual Procedure Side Surgeon p Colonoscopy Not Applicable Salome Irvin MD Meds Allergies and Home Medications Allergies Allergy/AdvReac Type Severity Reaction Status Date / Time benzalkonium chloride AdvReac Severe Visual Verified 03/07/25 08:13 Disturbances Home Medication ?Medication ?Instructions ?Recorded pen needle, diabetic 32 gauge x #400 ea 03/02/18 (BD Ultra-Fine Ankita Pen Needle) lancets 33 gauge (BD Ultra Fine #300 ea 09/18/19 Lancets) triamcinolone acetonide 0.1 % 1 applic topical DAILY 0 05/27/22 topical cream blood sugar diagnostic #300 strips 06/03/22 insulin admin supplies (Novopen #1 ea 08/31/22 Echo subcutaneous) glucagon (human recombinant) 1 mg 1 mg subcut Q20M PRN hypoglycemia 06/02/23 solution for injection #1 ea levothyroxine 50 mcg capsule 50 mcg PO DAILY #90 caps 01/04/24 blood-glucose sensor (Dexcom G7 #1 ea 05/19/24 Sensor device) blood-glucose sensor (Dexcom G7 #3 ea 05/19/24 Sensor device) insulin glargine 100 unit/mL (3 16 unit (0.16 mL) subc ut BID #15 mL 06/26/24 mL) subcutaneous pen (Lantus Solostar U-100 Insulin) insulin aspart U-100 100 unit/mL 120 unit (1.2 mL) sub cut ONCE 08/31/24 subcutaneous solution (Novolog Diabetes mellitus 1, in sulin for U-100 Insulin aspart) Tandem Pump 90 days #40 mL metformin 500 mg tablet 500 mg PO BID 90 days #180 t abs 08/31/24 tafluprost (PF) 0.0015 % eye drops 1 drp ophthalmic (e ye) DAILY 08/31/24 in a dropperette timolol maleate (PF) 0.5 % eye 1 drp ophthalmic (eye) DAILY 08/31/24 drops in a dropperette valacyclovir 500 mg tablet 500 mg PO BID PRN herpes #3 0 08/31/24 (Valtrex) tab-caps tamsulosin 0.4 mg capsule (Flomax) 0.4 mg PO BID #180 caps 10/05/24 vitamin E (dl, acetate) 45 mg (100 45 mg PO DAILY 09/19 10/13 unit) capsule losartan 50 mg tablet 50 mg PO DAILY 90 days #90 t abs 12/07/24 atorvastatin 10 mg tablet (Lipitor) 10 mg PO QPM #90 t abs 12/27/24 fluoxetine 20 mg tablet 40 mg (2 x 20 mg) PO DAILY # 180 02/07/25 tabs bisacodyl 5 mg tablet,delayed 5 mg PO ONCE #4 tabs 07/14 release (Dulcolax (bisacodyl)) polyethylene glycol 3350 17 17 g PO ONCE #238 grams gram/dose oral powder Current Visit Medications: Current Medications Generic Name Dose Route Start Last Admin Trade Name Freq PRN Reason Stop Dose Admin Ringer's Solution 1,000 mls @ 80 mls/hr 03/07/25 06:00 IV 03/07/25 23:59 INFUSION CELSO Sodium Chloride 0 ml 03/07/25 06:00 Normal Saline Flush 10 Ml Syr IV 03/07/25 23:59 PRN PRN Sodium Chloride 0 ml 03/07/25 06:00 Normal Saline 10 Ml Vial IJ 03/07/25 23:59 DIRECTED PRN Sterile Water 0 ml 03/07/25 06:00 Water,Injection,Sterile 10 Ml Vial IJ 03/07/25 23:59 DIRECTED PRN PFSH Active Problems Active Problems: Problem Status Onset Code Abdominal pain in male Acute R10.9 B12 deficiency Acute E53.8 Hypothyroidism Chronic E03.9 BPH w urinary obs/LUTS Acute N40.1, N13.8 Diabetes mellitus type 1 Acute E10.9 Hypoglycemia Acute E16.2 Neuropathy Acute G62.9 Left flank pain Acute R10.9 Hearing loss Acute H91.90 Rectal polyp Acute K62.1 Chronic sinusitis Acute 11/22/13 J32.9 Depressive disorder Acute F32.9 Diabetes mellitus Acute 13 E11.9 Glaucoma Acute H40.9 Herpes simplex Acute B00.9 Hyperlipidemia Acute E78.5 Irritable colon Acute K58.9 Glaucoma, open angle Acute H40.10X0 Varicose veins of lower extremity Acute I83.90 Weight loss Acute R63.4 Impacted cerumen of right ear Acute H61.21 Encounter for screening colonoscopy Acute Z12.11 Flatulence Chronic R14.3 Prostatism Acute N40.0 Polyp of cecum Resolved D12.0 Sigmoid polyp Resolved D12.5 Tubular adenoma of colon Resolved 04/22/18 D12.6 Status post inguinal hernia repair Acute Z98.890, Z87.19 Kidney stone Acute N20.0 History of hemorrhoidectomy Acute Z98.890 History of cataract removal with insertion of prosthetic lens Acute Z98.49, Z96.1 Elevated PSA Chronic R97.20 Skin lesion Acute L98.9 Upper back pain Acute M54.9 Pleural effusion, left Acute J90 Recurrent pleural effusion on left Acute J90 Preoperative testing Acute Z01.818 Pulmonary mass Acute R91.8 Non-small cell lung cancer with metastasis Acute C34.90 Skin lesion Acute L98.9 Palliative care patient Acute Z51.5 Anxiety disorder Acute F41.9 Hyperglycemia Acute R73.9 COVID-19 Acute ~0616/22 U07.1 Screening for colon cancer Acute Z12.11 Medical History Medical History Abnormal colonoscopy (~04/22/18) Dr Benny Dewey, [facility], tubular adenoma, repeat three years per Dr Reddy's recommendation.mg Pulmonary mass Surgical History Surgical History Extraction of cataract B/L Hemorrhoidectomy History of colonoscopy Repair of inguinal hernia RIGHT Tobacco Smoking/Tobacco Use Status: Never Passive smoking exposure: Yes Second hand exposure: Yes Alcohol Alcohol Intake: current Alcohol intake frequency: a few times a month Alcohol type: beer and wine Substance Use Substance use: Never Substance use type: does not use Vital Signs and Lab Results Vital Signs Most Recent Vital Signs in EMR: Most Recent Vital Signs Temp Pulse Resp BP Pulse Ox 36.3 C L 83 16 137/78 97 03/07/25 08:02 03/07/25 08:02 03/07/25 08:02 03/07/25 08:02 03/07/25 08:02 Imaging and Studies Imaging and Studies Study information below may be from another EMR and interpreted by another provider. Please see original notes in EMR for more complete details. EKG Summary: EKG PATIENT NAME: Chandana Mcwilliams UNIT #: [id number] ORDERING PROVIDER: Mayank Mccurdy DO PRIMARY CARE PROVIDER: ELVA TRAN MD DATE/TIME OF SERVICE: 05/18/24752 : 1945 PERFORMING LOCATION: ICU APPROVED REPORT Exam: Resting ECG Reason for Exam: Chest Pain Patient Location: E HR:87 bpm ECG Measurements Heart Rate 87 AXIS TX 175 P 79 QRSd 100 QRS 12 QT 367 T67 QTc 441 Conclusion Sinus rhythm...normal P axis, V-rate 60- 99 Probable left atrial enlargement...P >50mS, <-0.10mV V1 Borderline ST depression, anterolateral leads...ST <-0.07mV, I aVL V2-V6 I have reviewed and interpreted ECG and agree with software generated interpretation. <Electronically signed by MAYANK MCCURDY DO in OV> E-Sign Date: 05/18/24 E-Sign Time: 1726 ADDENDUM APPROVED REPORT Exam: Resting ECG Reason for Exam: Chest Pain Patient Location: E HR:87 bpm ECG Measurements Heart Rate 87 AXIS TX 175 P 79 QRSd 100 QRS 12 QT 367 T67 QTc 441 Conclusion Sinus rhythm...normal P axis, V-rate 60- 99 Probable left atrial enlargement...P >50mS, <-0.10mV V1 Borderline ST depression, anterolateral leads...ST <-0.07mV, I aVL V2-V6 I have reviewed and interpreted ECG and agree with software generated interpretation. I have reviewed and I agree with the emergency room physician's ECG interpretation. Electronically signed by: <Electronically signed by Tahira Sen M.D. in OV> 05/19/24 0886 Cosigned by: Other Study Summary:: 09/26/21: [facility] [place] PET Scan: Continued improvement in left lower lobe mass, now 2.5x3.5cm down from 7cm. Anesthesia Assessment and Plan Anesthesia History Personal History: No History of Anesthesia Complications Family History: No Family History of Anesthesia Complications Exercise Tolerance Exercise Tolerance: Metabolic Equivalents>4 Pertinent Negatives Pertinent Negatives: No Symptoms of GERD Cardiac & Pulmonary Exam Cardiac Exam: Normal S1/S2 Heart Sounds Pulmonary Exam: Clear Bilateral Breath Sounds Implantable Cardiac Device Does patient have a Pacemaker or an ICD?: No Airway Exam Known Difficult Airway: No Mallampati Class: 1 Mouth Opening: Normal (> 3cm) Thyromental Distance: Greater than 3 cm Neck Range of Motion: Full ROM Neck Circumference: Normal Teeth Condition: Normal Dentition ASA Classification ASA Score: ASA 3 Emergency Case?: No NPO Status NPO Status: NPO Clears >2 hours, Solids >8 hours Anesthesia Plan Resuscitation Status: DNR Fully Suspended During Perioperative Period Anesthesia Technique: General Anesthesia Airway Planned: Natural Airway Monitors Used: Standard Monitors Preoperative Comments:: Discussed cardiac history and care, recently 45 minutes of shoveling and snowblowing, good functional status. ANES 2021: Pt. states he is active. Does state a recent study showed 2 vessel coronary disease, one vessel severe. I was unable to locate this. Discussed risk and pt. wished to proceed. He will followup on this with his PCP.
[2025-03-07 09:21] VITALS: BMI 22.0
--- NOTE | 2025-03-07 10:13 | BOWEL_PTH ---
PATIENT: Chandana Mcwilliams LOC: [facility] U#:[id number] AGE/SX: 79/M ROOM: RE03/07/[address]: Salome Irvin : 1945 BED: DIS: 03/07/2025 SPEC #: [id number] RECD: 03/07/25 12:25 STATUS: GLADYS REQ #: [id number] KYUNG: 03/07/25 10:[address]: Salome Irvin DEPT: Surgical Specimen RECD BY: Stella Buenrostro ENTERED: 03/07/25 12:26 SP TYPE: Bowel OTHR DR: Paxton Segura MD Tissues: 1 - BIOPSY BOWEL Procedures: GROSS AND MICRO LEVEL 4 Comments: [id number]
[2025-03-07 10:22] VITALS: BP 122/74; PULSE 71; RESP 16; TEMP 36.2; O2SAT 97
--- NOTE | 2025-03-07 10:28 | W.PM.DSUDISC ---
Date of service: 03/07/25 Discharge Plan Disposition Patient Disposition: Home Condition: Good Discharge Details Reason For Visit: History of colon polyps Attending Provider: Salome Irvin Primary Care Provider: Paxton Segura Recommendations for Follow Up Recommended tests to be ordered by follow up provider: Follow up pathology Home Meds and New Rx's Prescriptions: Continued glucagon (human recombinant) 1 mg recon soln 1 mg SC Q20M PRN (Reason: hypoglycemia) Qty: 1 5RF Rx Instructions: until target blood sugar attained levothyroxine 50 mcg capsule 50 mcg PO DAILY Qty: 90 3RF (DME) pen needle, diabetic [BD Ultra-Fine Ankita Pen Needle] 32 gauge x /32 needle 1 ea Miscellaneous DAILY Qty: 400 4RF Rx Instructions: For use with pens QID (DME) lancets [BD Ultra Fine Lancets] 33 gauge misc See Dose Instructions .ROUTE .MEDSUPPLY Qty: 300 3RF Dose Instruction: As directed Rx Instructions: As directed TID triamcinolone acetonide 0.1 % cream 1 applic topical DAILY timolol maleate (PF) 0.5 % dropperette 1 drp ophthalmic (eye) DAILY Patient Comments: INSTILL 1 DROP IN THE RIGHT EYE EVERY MORNING tafluprost (PF) 0.0015 % dropperette 1 drp ophthalmic (eye) DAILY Patient Comments: INSTILL ONE DROP AT BEDTIME insulin aspart U-100 [Novolog U-100 Insulin aspart] 100 unit/mL solution 120 unit subcut ONCE 90 Days Qty: 40 4RF Rx Instructions: Inject 120 units into Tandem TSlim 2 Pump Bladder every 3 days metformin 500 mg tablet 500 mg PO BID 90 Days Qty: 180 4RF Rx Instructions: Take one 500 mg tablet by mouth twice daily valacyclovir [Valtrex] 500 mg tablet 500 mg PO BID PRN (Reason: herpes) Qty: 30 0RF vitamin E (dl, acetate) 45 mg (100 unit) capsule 45 mg PO DAILY tamsulosin [Flomax] 0.4 mg capsule 0.4 mg PO BID Qty: 180 3RF losartan 50 mg tablet 50 mg PO DAILY 90 Days Qty: 90 4RF Rx Instructions: Take one 50 mg tablet once daily by mouth as directed. (DME) blood sugar diagnostic Strip 1 strip Miscellaneous BID Qty: 300 4RF Rx Instructions: Dx: E11.9 test TID (DME) Novopen Echo Insulin Pen See Rx Instructions .Route Qty: 1 0RF Rx Instructions: As directed (DME) Dexcom G7 Sensor Device See Rx Instructions .Route Qty: 3 3RF Rx Instructions: Continuous glucose monitor insulin glargine [Lantus Solostar U-100 Insulin] 100 unit/mL (3 mL) insulin pen 16 unit Sub-Q BID Qty: 15 5RF Patient Comments: Per pt. states he is not taking this it is just back up incase something goes wrong on the pump Rx Instructions: E11.9 06/26/2024: patient restarted due to insulin pump failure. See task. -hb atorvastatin [Lipitor] 10 mg tablet 10 mg PO QPM Qty: 90 3RF fluoxetine 20 mg tablet 40 mg PO DAILY Qty: 180 3RF Rx Instructions: TAKE TWO TABLETS BY MOUTH EVERY DAY (DME) Dexcom G7 Sensor Device See Rx Instructions .Route Qty: 1 0RF Rx Instructions: Dexcom G7 sensor to be used with Tandem Insulin Pump. Discontinued bisacodyl [Dulcolax (bisacodyl)] 5 mg tablet,delayed release (DR/EC) 5 mg PO ONCE Qty: 4 0RF Rx Instructions: Take per colonoscopy instructions provided by ordering providers office polyethylene glycol 3350 17 gram/dose powder 17 g PO ONCE Qty: 238 0RF Rx Instructions: Take per colonoscopy instructions provided by ordering providers office Discharge Instructions Additional Instructions: Your colonoscopy went well today. You did have 1 small polyp which was removed and will be sent to pathology. We will contact you once these results return and make recommendations for a repeat colonoscopy. If you have any questions or concerns please contact the general surgery office. 1. If tolerated, consume a soft, low fiber diet for 1-2 days. 2. Do not drive, drink alcohol, operate machinery, make critical decisions, or do activities that require coordination or balance for 24 hours. 3. Because air was put into your colon during the procedure, expelling air from your rectum (passing gas or farting) is normal. 4. You may not have a bowel movement for 1-3 days because of the colonoscopy prep. This is normal. 5. Go directly to the emergency room if you notice any of the following: Develop chills (warm to touch), or if you have a thermometer and your temperature is above 101 Difficulty breathing or difficultly swallowing Persistent vomiting Severe abdominal pain, other than gas cramps Severe chest pain Black, tarry stools Any bleeding ? exceeding one tablespoon 6. Call your physician if the site where your intravenous was started becomes red, swollen, painful, and warm to touch. 7. Your physician has reviewed your pre-procedure medications. Please continue to take those medications as previously ordered. You will be given specific information/education regarding any changes to your medications before leaving. Stand Alone Forms: Portal Information Activity:: Activity as Tolerated Diet:: As Tolerated Discharge Orders Discharge Orders: Discharge Order (Routine); Ordered 03/07/25 Ordered By: Salome Irvin
--- NOTE | 2025-03-07 10:31 | COLE_ITS ---
Date of service: 03/07/25 Time of Service: 10:31 Colonoscopy Report Date of procedure: 03/07/25 Pre-op diagnosis general: History of colon polyps Post-op diagnosis procedure note: same Procedure: Colonoscopy with polypectomy Surgeon: Salome Irvin Anesthesia Type: General:No Airway Estimated blood loss (mL): 1 Pathology: other (Polyp at 65cm ) Complications: None Disposition: PACU Indications: Patient is a 79-year-old male who presents for a colonoscopy due to a history of a sessile serrated adenoma 3 years ago. Prep: Miralax/Dulcolax Procedure Start Time: 09:42 Procedure End Time: 10:18 Retraction Time: 9 Findings: Small colon polyp at 65 cm removed with cold forceps. Otherwise normal colonoscopy. Procedure Description: The patient was brought to the endoscopy suite and placed in the left lateral decubitus position. After induction of IV sedation, a digital rectal exam was performed.. Digital exam was normal. The colonoscope was then passed to the cecum with some difficulty due to looping. Cecal intubation was confirmed by the identification of the appendiceal orifice and the ileocecal valve. Upon withdrawing the colonoscope, all mucosal surfaces were inspected. The prep was noted to be adequate. At 65cm, there was a small polyp, which was removed using cold forceps in its entirety. Specimen was retrieved for pathological analysis. There was no other evidence of mucosal abnormality, polyp or cancer. Ret roflexion in the rectum was unremarkable.The patient tolerated the procedure well with no complications. Postoperatively, the patient was transferred to the recovery room in stable condition. [place] Bowel Prep [place] Bowel Prep Right Colon: 2 Left Colon: 3 Transverse Colon: 3 Total Score: 8
[2025-03-07 10:40] VITALS: BP 156/80; PULSE 75; RESP 16; TEMP 36.3; O2SAT 98
--- NOTE | 2025-03-07 13:21 | W.ANESPOSTOP ---
Postoperative Evaluation Date, Time and Location Date Performed: 03/07/25 Time Performed: 13:21 Patient Location: Day Surgery Unit Vital Signs Most Recent Imported Vital Signs: Most Recent Vital Signs Temp Pulse Resp BP Pulse Ox 36.3 C L 75 16 156/80 H 98 03/07/25 10:40 03/07/25 10:40 03/07/25 10:40 03/07/25 10:40 03/07/25 10:40 Pain Score Most Recent Pain Score: Most Recent Pain Score Pain Level 0 03/07/25 10:40 Assessment Mental Status: Awake (Alert & Oriented to Patient Baseline) Airway and Respiratory Function: Patent airway with normal (patient baseline) respiratory exam Cardiovascular Function: Hemodynamically Stable Hydration Status: Adequately Hydrated Nausea & Vomiting: No Nausea or Vomiting Pain: Pt. Denies Any Pain Peripheral Nerve Block: Patient did not receive a nerve block
== END 2025-03-07 11:15 | disposition home or self-care (01) ==
PROVIDERS: PCP Family Medicine; Visit Provider Student in an Organized Health Care Education/Training Program
PROC: 0DJD8ZZ Inspection of Lower Intestinal Tract, Via Natural or Artificial Opening Endoscopic (ICD-10-PCS; CPT 45378; principal; 2025-03-07 09:00)
DX: Z12.11 Encounter for screening for malignant neoplasm of colon (principal); D12.4 Benign neoplasm of descending colon
CPT/HCPCS: 45380; 88305; J2704

== ENCOUNTER → 2025-03-19 10:47 | Outpatient (CLI) | payer MEDICARE, SELFPAY ==
--- NOTE | 2025-03-19 06:30 | DI.NM_ITS ---
APPROVED REPORT Exam: Pharmacologic Patient Location: Out-Patient Room/Bed: Stress Nurse: Garrett Mendes RN Ordering Provider:ELVA TRAN, Contact Number: [phone] BMI: 21.85 Baseline Rhythm: Sinus Rhythm. Comment: Rare PAC's; Rare PVC's. Indications: Chest Pain. Medical History Medical History: Diabetes Mellitus Type 1; Pulmonary Mass; Hypothyroidism; Depression; HLD; Anxiety; COPD. Cardiac Medications: Insulin Aspart; Insulin Glargine; Metformin; Timolol Maleate; Valtrex; Flomax; Losartan; Atorvastatin; Fluoxetine; Levothyroxine. Allergies: Benzalkonium Chloride. Cardiac Risk Factors: Family Hx; HLD; Diabetes Mellitus Type 1; COPD. Previous Cardiac Procedures: None. Pretest Chest Pain Characteristics: None. Exercise History: Physically active. Physical Disabilities: None. Lung Sounds: Fine crackles in the bilateral posterior bases; clear bilaterally throughout, anterior and posterior, otherwise. Heart Sounds: S1 and S2 auscultated. Stress Test Details Test: Pharmacologic stress was paired with low level exercise. Reason for pharmacologic stress test: changed from exercise stress test due to inability to reach target heart rate. Nuclear Acquisition: Rest Tc-99m/Stress Tc-99m 1 day Rest Isotope: Tc-99m Sestamibi. Dose: 10.0 Date: 03/19/2025 Injection Time: 1120 Stress Isotope: Tc-99m Sestamibi. Dose: 30.0 Date: 03/19/2025 Injection Time: 1327 HR Resting HR Supine: 66 bpm Max Heart Rate (APMHR): 142 bpm Resting HR Standin bpm Target HR (85% APMHR): 121 bpm Max HR Achieved: 108 bpm % of APMHR: 76 Recovery HR: 89 bpm HR response to stress: Normal HR response to stress. BP Resting BP Supine: 162/86 mmHg Resting BP Standin/68 mmHg Max BP: 220/108 mmHg Recovery BP: 152/78 mmHg BP response to stress: Abnormal hypertensive response to stress. ECG Resting ECG: Sinus Rhythm. Ectopy: Rare PAC's; Rare PVC's. Stress ECG: Sinus Tachycardia. Arrhythmia: Rare PAC's; Rare PVC's. Recovery ECG: Sinus Rhythm. Recovery Arrhythmia: Rare PAC's; Rare PVC's. Clinical Stress Symptoms: Leg Fatigue, Dyspnea. Exercise duration: 06 min27 sec Highest Stage Reached: Stage 2: 2.5 mph at 12% grade. Exercise capacity: 7.05 METs Angina Score: None Rate Pressure Product: [id number] Stress ECG Conclusion 1. Resting electrocardiogram was normal 2. Patient underwent testing using a combination of pharmacologic stress with regadenoson and low-level exercise 3. Normal heart rate response to exercise. Hypertensive blood pressure response. Peak heart rate achieved was 76% of maximal predicted for age 4. At submaximal heart rate there was no electrocardiographic evidence of myocardial ischemia 5. See MPI report Critical Notification Critical Value: Yes Physician Notified Date: 03/19/2025 Time: 1313 Physician Name: Eli Luan NP Response Time: 1 minute. Stress Test Summary STAGE Time (mins) Speed (mph) Grade (%) HR BP SpO2 SYMPTOMS METS Supine 66 162/86 98 Pt. denied any symptoms. Standing 72 122/68 97 Pt. denied any symptoms. 1 3 1.7 10 94 142/60 94 Pt. c/o mild leg fatigue and mild shortness of breath. 4.5 2 6 2.5 12 103 90 Pt. c/o mild leg fatigue and mild to moderate shortness of breath and slight panic. Pt. requesting to stop the treadmill. Pt. was ambulated from the treadmill to the stretcher and was allowed to recover. Stress test transitioning from Peter protocol to laying lexiscan protocol. 7 1 min post Lexiscan injection 102 220/108 96 Pt. c/o moderate shortness of breath and minimal panic. 3 min post Lexiscan injection 98 180/88 98 Pt. c/o minimal to mild shortness of breath and denies any panic. 6 min post Lexiscan injection 89 152/78 97 Pt. states that all symptoms have resolved back to baseline. Pt. performed a NM MPI stress test using the transition protocol. Pt. started out using the Peter protocol and transitioned to the laying lexiscan protocol. Pt. was noted to have very fine crackles in the bilateral posterior bases of his lungs. Eli Luna NP was notified of the pt.'s crackles, of the plan to attempt the Peter protocol, and was asked if it would be safe to proceed with the lexiscan should the stress test need to transition. Per [employer], it was safe to proceed with the stress test. Pt. denied any symptoms prior to starting the stress test. During Stage 1 of exercise, pt. c/o mild leg fatigue and mild shortness of breath. During Stage 2 of exercise, pt. c/o mild leg fatigue and mild to moderate shortness of breath and slight panic. Pt. requesting to stop the treadmill. Pt. was ambulated from the treadmill to the stretcher and was allowed to recover. Stress test transitioning from Peter protocol to laying lexiscan protocol. Immediately post lexiscan injection, pt. c/o moderate shortn ess of breath and minimal panic. Three minutes post lexiscan injection, pt. c/o minimal to mild shortness of breath and denies any panic. Six minutes post lexiscan injection, pt. states that all symptoms have resolved back to baseline. Pt. was noted to have horizontal and upsloping ST depression ranging from 1-2mm during Stage 2 of exercise and Stage 1 of recovery that had completely resolved back to baseline prior to the end of the stress test. Pt. was conversing pleasantly with nursing staff upon leaving the Stress Lab. Pt. left ambulatory in no apparent distress. MPI Conclusion Myocardial perfusion is normal. There is no ischemia or evidence of prior infarction
[2025-03-19] MEDS: Regadenoson 0.4 MG/5 ML SYR IVP (13:26)
== END ==
LOC: DI 10:47
PROVIDERS: PCP Family Medicine; Visit Provider Family Medicine
DX: R07.9 Chest pain, unspecified (principal)
CPT/HCPCS: 78452; 93016; 93018; 93017; J2785